=== PATIENT | female | born 1950 | race Two or more races ===

== ENCOUNTER 2020-06-02 07:35 | Outpatient (REF) | payer MEDICARE, SELFPAY ==
--- NOTE | 2020-06-02 | US_ITS ---
EXAMINATION: US ABDOMEN COMPLETE CLINICAL INFORMATION: Epigastric pain. COMPARISON: CT abdomen and pelvis 02/13/2018. TECHNIQUE: Real-time imaging of the abdominal viscera. FINDINGS: PANCREAS: The visualized pancreas is normal in size and contour and echogenicity. There is no pancreatic ductal distention or retroperitoneal effusion. Portions distal body and tail are obscured by bowel gas and not optimally imaged. ABDOMINAL AORTA: The proximal, mid, and distal segments are normal in caliber. INFERIOR VENA CAVA: Visualized portions are normal. LIVER: Normal. The liver is normal in size. The liver contour is normal. Parenchymal echogenicity is normal. No focal hepatic lesion. There is no intrahepatic biliary duct dilatation seen. GALLBLADDER: Normal. The gallbladder is physiologically distended without evidence of stones, sludge, polyps, wall thickening or pericholecystic fluid. COMMON BILE DUCT: Normal in caliber measuring 0.4 cm in diameter. RIGHT KIDNEY: Right kidney measures 9.5 cm in length. There is some mild cortical thinning. Parenchymal echogenicity is isoechoic with liver. There is no hydronephrosis or caliectasis. No visible calculi or focal parenchymal lesion. LEFT KIDNEY: Left kidney measures 9.8 cm in length. Renal parenchymal thickness and echogenicity are within normal. No hydronephrosis. No renal calculi or focal parenchymal lesions. SPLEEN: Normal. The spleen measures 8.8 cm in maximum dimension. FREE FLUID: None. US/US abdomen complete IMPRESSION: 1. No cholelithiasis or biliary ductal dilatation. 2. Visualized pancreas unremarkable. 3. No hydronephrosis. Mild cortical thinning right renal parenchyma.
== END 2020-06-02 07:36 | disposition home or self-care (01) ==
LOC: HO.US 07:35
PROVIDERS: PCP Internal Medicine; Visit Provider Internal Medicine
DX: R10.13 Epigastric pain (principal)
CPT/HCPCS: 76700

== ENCOUNTER → 2020-06-16 14:09 | Outpatient (BNVA) | payer MEDICARE, SELFPAY | PROVIDERS: PCP Internal Medicine; Referring Provider Internal Medicine; Visit Provider Internal Medicine Endocrinology, Diabetes & Metabolism | DX: Z13.89 Encounter for screening for other disorder (principal) | CPT/HCPCS: Q3014 ==

== ENCOUNTER 2020-07-28 12:54 | Outpatient (REF) | payer MEDICARE, SELFPAY ==
[2020-07-28 14:33] LABS: Anion Gap 13 (12-20); Blood Urea Nitrogen 33 mg/dL (9-16); Calcium 8.8 mg/dL (8.4-10.2); Carbon Dioxide 29 mmol/L (22-29); Chloride 106 mmol/L (96-108); Estimated Glomerular Filt Rate 39; Phosphorus 4.1 mg/dL (2.7-4.5); Potassium 4.9 mmol/l (3.3-5.1); Sodium 143 mmol/L (135-145)
[2020-07-28 17:43] LABS: Renal w Reflex Lab Use Only Order verified
== END 2020-07-28 12:55 | disposition home or self-care (01) ==
LOC: HO.10HDL 12:54
PROVIDERS: Visit Provider Internal Medicine Nephrology
DX: E11.22 Type 2 diabetes mellitus with diabetic chronic kidney disease (principal); I12.9 Hypertensive chronic kidney disease with stage 1 through stage 4 chronic kidney disease, or unspecified chronic kidney disease; N18.30 Chronic kidney disease, stage 3 unspecified; E66.01 Morbid (severe) obesity due to excess calories; E11.21 Type 2 diabetes mellitus with diabetic nephropathy
CPT/HCPCS: 36415; 80051; 82310; 82565; 84100; 84520

== ENCOUNTER → 2020-09-19 12:23 | Outpatient (BNVA) | payer MEDICARE, SELFPAY | PROVIDERS: PCP Internal Medicine; Visit Provider Internal Medicine Endocrinology, Diabetes & Metabolism | DX: E11.65 Type 2 diabetes mellitus with hyperglycemia (principal); E11.21 Type 2 diabetes mellitus with diabetic nephropathy; E11.22 Type 2 diabetes mellitus with diabetic chronic kidney disease; I12.9 Hypertensive chronic kidney disease with stage 1 through stage 4 chronic kidney disease, or unspecified chronic kidney disease; N18.30 Chronic kidney disease, stage 3 unspecified; Z79.4 Long term (current) use of insulin; E78.5 Hyperlipidemia, unspecified; E66.01 Morbid (severe) obesity due to excess calories | CPT/HCPCS: 82947; 99212 ==

== ENCOUNTER 2020-10-27 12:55 | Outpatient (REF) | payer MEDICARE, SELFPAY ==
[2020-10-27 14:12] LABS: Anion Gap 11 (12-20); Blood Urea Nitrogen 31 mg/dL (9-16); Calcium 8.7 mg/dL (8.4-10.2); Carbon Dioxide 32 mmol/L (22-29); Chloride 103 mmol/L (96-108); Estimated Glomerular Filt Rate 34; Phosphorus 4.2 mg/dL (2.7-4.5); Potassium 4.8 mmol/L (3.3-5.1); Sodium 141 mmol/L (135-145)
[2020-10-27 14:52] LABS: Renal w Reflex Lab Use Only Order verified
[2020-10-27 14:53] LABS: Creatinine Urine 94.77 mg/dL; Protein/Creatinine Ratio, Ur 0.25 (<0.2); Total Protein Urine Random 24 mg/dL (<12)
== END 2020-10-27 12:56 | disposition home or self-care (01) ==
LOC: HO.10HDL 12:55
PROVIDERS: Visit Provider Internal Medicine Nephrology
DX: E11.22 Type 2 diabetes mellitus with diabetic chronic kidney disease (principal); E11.21 Type 2 diabetes mellitus with diabetic nephropathy; I12.9 Hypertensive chronic kidney disease with stage 1 through stage 4 chronic kidney disease, or unspecified chronic kidney disease; N18.30 Chronic kidney disease, stage 3 unspecified; E66.01 Morbid (severe) obesity due to excess calories
CPT/HCPCS: 36415; 80051; 82310; 82565; 84100; 84156; 84520

== ENCOUNTER 2020-11-26 10:08 | Inpatient (IN) | payer MEDICARE, SELFPAY ==
--- NOTE | ~2020-11-26 | XR_ITS ---
EXAMINATION: XR CHEST CLINICAL INFORMATION: Left-sided weakness COMPARISON: Previous chest x-ray September 2017 TECHNIQUE: Frontal view of the chest was obtained. FINDINGS: The cardiac and mediastinal contours are normal. The lungs are clear. There is no pleural effusion or pneumothorax. There are degenerative changes of the spine. XR/XR chest 1V IMPRESSION: No evidence for acute disease in the chest.
--- NOTE | ~2020-11-26 | MR_ITS ---
EXAMINATION: MR BRAIN WITHOUT CONTRAST CLINICAL INFORMATION: Left-sided numbness. Unsteady gait. COMPARISON: CT head from 11/26/2020. TECHNIQUE: MRI of the brain was obtained using routine sequences without contrast. FINDINGS: There is a focus of restricted diffusion within the lateral aspect of the right thalamus. Associated T2 FLAIR hyperintensity. No additional focal restricted diffusion is demonstrated to suggest acute or subacute cerebral ischemia. No evidence of acute or chronic hemorrhagic products on heme-sensitive imaging. Basal ganglia mineralization. Scattered periventricular and deep white matter T2 FLAIR hyperintensities consistent with mild underlying microangiopathy. Proportional prominence of the ventricles and sulcal spaces without evidence of obstructive hydrocephalus. No abnormal mass effect. No midline shift. Normal appearance of the pituitary gland. No abnormalities of the posterior fossa with normal appearance of the brainstem and cerebellum. Normal positioning of the cerebellar tonsils. Normal arterial and venous vascular flow voids are present. Normal, homogeneous marrow signal. No signal abnormalities within the paranasal sinuses or mastoids. Bilateral lens extractions. MR/MR head/brain wo con IMPRESSION: 1. Small acute right thalamic infarct. 2. Mild underlying microangiopathy and generalized cerebral volume loss.
--- NOTE | ~2020-11-26 | CT_ITS ---
EXAMINATION: CT HEAD WITHOUT CONTRAST CLINICAL INFORMATION: Dizziness, left-sided weakness and imbalance COMPARISON: None TECHNIQUE: Contiguous axial imaging was performed from the skull base to vertex without intravenous administration of contrast. This CT examination was performed using dose optimization techniques as appropriate, variously including the following: *Automated exposure control *Adjustment of mA and/or kV according to patient size (this includes techniques or standardized protocols for targeted exams where dose is matched to indication/reason for exam; i.e. extremities or head) *Use of iterative reconstruction technique DLP: 672 mGy-cm FINDINGS: There is no evidence of acute intracranial hemorrhage or territorial infarction. There is a small hypodensity in the right occipital lobe which appears contiguous to occipital horn of lateral ventricle, ? Old infarct. There are no previous CT abdomen for comparison. No abnormal mass effect or midline shift is seen. Elise to white matter differentiation is well preserved. No extra-axial fluid collections are identified. The lateral ventricles are symmetrical in size but mildly enlarged. No attenuation seen within the white matter. The osseous structures and soft tissues are normal. The mastoid air cells and visualized portions of the paranasal sinuses are well aerated. CT/CT head/brain wo con IMPRESSION: No acute intracranial process seen. Suspect old infarct right occipital lobe with ex vacuole dilatation of occipital horn right lateral ventricle.
[2020-11-26 10:18] VITALS: BP 166/52; PULSE 60; RESP 18; TEMP 36.8; O2SAT 97; BMI 42.7
--- NOTE | 2020-11-26 10:33 | ECG_ITS ---
Test Reason : DIZZINESS Blood Pressure : / mmHG Vent. Rate : 064 BPM Atrial Rate : 064 BPM P-R Int : 180 ms QRS Dur : 086 ms QT Int : 408 ms P-R-T Axes : 085 013 091 degrees QTc Int : 420 ms Normal sinus rhythm Nonspecific ST and T wave abnormality lateral leads Borderline ECG When compared with ECG of 06-APR-2015 06:02, No significant change was found Referred By: Allyn Ruiz Electronically Signed By:KEILA RIVAS
[2020-11-26 11:02] LABS: MANUAL DIFF FLAG NO
[2020-11-26 11:11] LABS: Basophils Percent Auto 0.5 % (0-2); Eosinophils Absolute Auto 0.3 X10*3/uL (0.0-0.4); Eosinophils Percent Auto 4.4 % (0-4); Hemoglobin 11.4 g/dl (12.0-16.0); Imm Gran Abs Auto 0.01 X10*3/uL (0.00-0.03); Imm Gran Pct Auto 0.2 % (0.0-0.4); Lymphocytes Absolute Auto 1.5 X10*3/uL (1.2-4.9); Lymphocytes Percent Auto 24.5 % (20-40); Mean Corpuscular HGB Conc 32.6 g/dl (31.0-35.0); Mean Corpuscular Hemoglobin 30.2 pg (27.0-33.0); Mean Corpuscular Volume 92.8 fL (80-98); Mean Platelet Volume 11.2 fL (9.4-12.3); Monocytes Absolute Auto 0.5 X10*3/uL (0.1-1.2); Neutrophils Absolute Auto 3.8 X10*3/uL (2.0-8.3); Neutrophils Percent Auto 62.4 % (45-73); Platelet Count 198 X10*3/uL (160-400); Red Blood Count 3.77 X10*6/uL (4.20-5.50); Red Cell Distribution Width 11.9 % (11.0-16.0); White Blood Count 6.1 X10*3/uL (4.8-10.8)
[2020-11-26 11:15] LABS: INTERNATIONAL NORM RATIO 1.1 (0.9-1.1); Prothrombin Time 12.5 SEC (10.8-13.0)
[2020-11-26 11:18] LABS: Partial Thromboplastin Time 36.2 SEC (24.1-38.0)
[2020-11-26 11:26] LABS: COVID-19 Test Negative (Negative); IDNOW Serial# 9DD0AD1C
[2020-11-26 11:35] LABS: Alanine Aminotransferase 14 U/L (0-31); Albumin Level 3.8 g/dL (3.5-5.0); Alkaline Phosphatase 94 U/L (39-117); Anion Gap 9 (12-20); Aspartate Amino Transferase 16 U/L (5-31); Bilirubin Direct 0.2 mg/dL (0.0-0.5); Bilirubin Total 0.4 mg/dL (0.0-1.0); Blood Urea Nitrogen 34 mg/dL (9-16); Calcium 9.2 mg/dL (8.4-10.2); Carbon Dioxide 32 mmol/L (22-29); Chloride 105 mmol/L (96-108); Creatinine Clr Calc Pharmacy 25.8; Estimated Glomerular Filt Rate 32; Glucose Random 224 mg/dL (60-115); Lipase 20 U/L (8-78); Magnesium 2.1 mg/dL (1.6-2.6); Potassium 5.1 mmol/L (3.3-5.1); Sodium 141 mmol/L (135-145); Total Protein 6.7 g/dL (6.5-8.0)
[2020-11-26 11:41] LABS: Troponin-I High Sensitivity 6.2 ng/L (<3.5-17.0)
[2020-11-26 11:42] LABS: B Type Natriuretic Peptide 143 pg/mL (<100)
--- NOTE | 2020-11-26 11:48 | ED.DIZZY ---
HPI - Dizziness General Chief Complaint: Dizziness <MAZIN Devine Last Filed: 11/26/20 13:01> Stated Complaint: lt side numbness <MAZIN Devine Last Filed: 11/26/20 13:01> Time Seen by Provider: 11/26/20 10:22 <MAZIN Devine Last Filed: 11/26/20 13:01> Source: patient <MAZIN Devine Last Filed: 11/26/20 13:01> Mode of arrival: ambulatory <MAZIN Devine Last Filed: 11/26/20 13:01> History of Present Illness HPI Narrative: 70-year-old female with a past medical history of asthma, CKD, diabetes, diabetic neuropathy, HLD, GERD, CVA with residual left-sided facial droop, HTN, morbid obesity, c/o waking up last night to use bathroom feeling dizzy/off balance with left-sided weakness/numbness. Admits symptoms slightly improved at present with residual tingling in left fingers and gait improvement. Denies fever, chills, CP/SOB, abdominal pain, fall/head trauma, visual change/loss <MAZIN Devine Last Filed: 11/26/20 13:01> MD elicited complaint: dizziness, difficulty walking, vertigo and disequilibrium <MAZIN Devine Last Filed: 11/26/20 13:01> Related Data Home Medications: Home Medications Medication Instructions Recorded Confirmed metoprolol tartrate 25 mg tablet 25 mg PO BID 06/16/20 12/12/20 aspirin 81 mg tablet,delayed 81 mg PO DAILY 09/19/20 12/12/20 release ascorbic acid (vitamin C) [Vitamin 250 mg PO DAILY 11/26/20 12/12/20 C] gabapentin 300 mg PO BEDTIME 11/26/20 12/12/20 hydralazine 25 mg PO BID 11/26/20 12/12/20 multivitamin 1 tab PO DAILY 11/26/20 12/12/20 Previous Rx's Medication Instructions Recorded atorvastatin 40 mg tablet 40 mg PO BEDTIME 90 Days #90 tab 06/09/20 cholecalciferol (vitamin D3) 50 50 mcg PO DAILY #90 cap 07/28/20 mcg (2,000 unit) capsule Novolog Flexpen U-100 Insulin 100 18 - 20 unit SUBCUT TID 90 Days 12/12/20 unit/mL (3 mL) subcutaneous #45 ml NS insulin glargine 100 unit/mL (3 35 unit SUBCUT BEDTIME 90 Days 12/12/20 mL) subcutaneous pen #31.5 ml pen needle, diabetic 32 gauge x #400 ea 12/12/20 <MAZIN Devine Last Filed: 11/26/20 13:01> Allergies/Adverse Reactions: Allergies Allergy/AdvReac Type Severity Reaction Status Date / Time metformin [From GLUCOPHAGE] AdvReac Unknown DIARRHEA Verified 09/19/20 12:31 <MAZIN Devine Last Filed: 11/26/20 13:01> Review of Systems Review of Systems: Constitutional: No Fever, No Chills, No Night Sweats, No Fatigue, No Malaise ENT/Mouth: No Ear Pain, No Nasal Congestion, No Sinus Pain, No sore throat, No Swallowing Difficulty Eyes: No Eye Pain, No Vision Changes Cardiovascular: No Chest Pain, No SOB, No Edema Respiratory: No Cough, No Sputum, No Dyspnea Gastrointestinal: No Nausea, No Vomiting, No Diarrhea, No Constipation, No Abdominal pain Genitourinary: No Dysuria, No Urinary Frequency, No Hematuria Musculoskeletal: No joint pain, No Myalgias, No Joint Swelling Skin: No Skin Lesions, No rash Neuro: + Weakness, + Numbness, + Paresthesias, No Loss of Consciousness, + Dizziness, No Headache <MAZIN Devine Last Filed: 11/26/20 13:01> Yes all other systems are reviewed and are negative <MAZIN Devine Last Filed: 11/26/20 13:01> Neurologic: Denies Abnormal speech present <MAZIN Devine Last Filed: 11/26/20 13:01> [facility] Past Medical History Attestation statement: The following information was validated with the patient. 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 Morbid obesity Peripheral nerve facial nerve paralysis <MAZIN Devine - Last Filed: 11/26/20 13:01> Surgical History: Surgical History (Updated 06/27/20 @ 15:49 by Lynn Wilson) History of appendectomy Hx of bilateral cataract extraction Hx of hysterectomy Hx of tubal ligation <MAZIN Devine - Last Filed: 11/26/20 13:01> Family History Family History: Family History (Updated 09/19/20 @ 12:30 by Rachele Santos [facility]) Father Cancer Mother Diabetes mellitus <MAZIN Devine - Last Filed: 11/26/20 13:01> Social History Social History: Social History (Updated 06/12/20 @ 10:41 by Candelario Wilkes [facility]) Household Members: None Housing: Apartment Do you presently have visiting nurse or other home services: Yes Second Hand Smoke Exposure: No Advance Directives Date on File: 11/26/20 service: No Current occupational status: disabled <MAZIN Devine - Last Filed: 11/26/20 13:01> Physical Exam Vital Signs: Vital Signs: Last Vital Signs Temp 97.1 F 11/28/20 11:31 Pulse 60 11/28/20 11:31 Resp 20 11/28/20 11:31 BP 138/61 11/28/20 11:31 Pulse Ox 93 11/28/20 11:31 Body Mass Index 42.7 <MAZIN Devine - Last Filed: 11/26/20 13:01> Vital Signs: Last Vital Signs Temp 97.1 F 11/28/20 11:31 Pulse 60 11/28/20 11:31 Resp 20 11/28/20 11:31 BP 138/61 11/28/20 11:31 Pulse Ox 93 11/28/20 11:31 Body Mass Index 42.7 <Sammy Hein MD - Last Filed: 12/25/20 12:46> Const: General: cooperative, healthy appearing, alert, awake and Physically active <MAZIN Devine - Last Filed: 11/26/20 13:01> Orientation/consciousness: patient oriented x3 <MAZIN Devine - Last Filed: 11/26/20 13:01> Limitations: no limitations <Allyn Ruiz PR - Last Filed: 11/26/20 13:01> HENMT: Head: Yes normal to inspection <Allyn Ruiz PR - Last Filed: 11/26/20 13:01> Ears: hearing grossly normal bilaterally <Allyn Ruiz PR - Last Filed: 11/26/20 13:01> General nose exam: Normal external nose present <Allyn Ruiz PR - Last Filed: 11/26/20 13:01> Face and sinus: Yes normal facial exam <Allyn Ruiz PR - Last Filed: 11/26/20 13:01> Eyes: General: appearance normal, both eyes and all related structures <Allyn Ruiz PR - Last Filed: 11/26/20 13:01> Pupils: Equal, round and reactive pupils present <Allyn Ruiz PR - Last Filed: 11/26/20 13:01> EOM: EOMs intact bilaterally <Allyn Ruiz PR - Last Filed: 11/26/20 13:01> Neck: Neck: Yes normal visual inspection and Yes no meningeal signs <Allyn Ruiz PR - Last Filed: 11/26/20 13:01> Resp: Effort & Inspection: normal respiratory effort <Allyn Ruiz PR - Last Filed: 11/26/20 13:01> Auscultation: clear to auscultation bilaterally, no rales, no rhonchi and no wheezes <Allyn Ruiz PR - Last Filed: 11/26/20 13:01> Cardio: Rate: regular rate <Allyn Ruiz PR - Last Filed: 11/26/20 13:01> Heart sounds: S1 normal heart sound present and S2 normal heart sound present <Allyn Ruiz PR - Last Filed: 11/26/20 13:01> GI: Inspection: Yes normal to inspection <Allyn Ruiz PA - Last Filed: 11/26/20 13:01> Palpation (GI): Soft to palpation, nontender, no guarding and not rigid <Allyn Ruiz PR - Last Filed: 11/26/20 13:01> Skin: Rashes: no rashes <Allyn Ruiz PA - Last Filed: 11/26/20 13:01> Wounds: no wounds <MAZIN Devine - Last Filed: 11/26/20 13:01> Neuro: Other: Baseline left-sided facial droop. No appreciable weakness. Gait with slight leftward unsteadiness, no ataxia <MAZIN Devine Last Filed: 11/26/20 13:01> General: patient oriented x3, tone normal, moves all extremities, no meningeal signs, no focal motor deficits and CN's II-XI intact bilaterally <MAZIN Devine - Last Filed: 11/26/20 13:01> Cranial nerves: Yes Equal, round and reactive pupils present <MAZIN Devine - Last Filed: 11/26/20 13:01> Cognition (Neuro): normal cognition <MAZIN Devine Last Filed: 11/26/20 13:01> Speech: No Abnormal speech present <MAZIN Devine Last Filed: 11/26/20 13:01> Motor exam (neuro): 5/5 motor strength present throughout <MAZIN Devine - Last Filed: 11/26/20 13:01> Coordination: [id number] test normal and Romberg test negative <MAZIN Devine - Last Filed: 11/26/20 13:01> Extrem: General: Yes normal to inspection and Yes no pedal edema <MAZIN Devine - Last Filed: 11/26/20 13:01> Course Course Course Narrative: -no leukocytosis, H&H stable, renal function at baseline, troponin 6.2 >> will obtain 3 hour repeat XR chest 1V IMPRESSION: No evidence for acute disease in the chest. CT head/brain wo con IMPRESSION: No acute intracranial process seen. Suspect old infarct right occipital lobe with ex vacuole dilatation of occipital horn right lateral ventricle >> results discussed with patient with service support representative. Plan to admit for further workup <MAZIN Devine - Last Filed: 11/26/20 13:01> I have discussed the case and management with the JANIE <Sammy Hein MD - Last Filed: 12/25/20 12:46> MDM - Dizziness MDM Narrative Medical decision making narrative: 70-year-old female with a past medical history of asthma, CKD, diabetes, diabetic neuropathy, HLD, GERD, CVA with residual left-sided facial droop, HTN, morbid obesity, c/o waking up last night to use bathroom feeling dizzy/off balance with left-sided weakness/numbness. On exam VSS, NAD, no focal neuro deficits appreciated, exam unsteady but no ataxia. Patient still with slight reported symptoms at present concern for CVA vs TIA. R/o ACS/metabolic/infectious etiology Plan: EKG, labs, UA, head CT, orthostatics, anticipated admission <MAZIN Devine - Last Filed: 11/26/20 13:01> Medical Records Attestation: I reviewed the patient's medical records. <MAZIN Devine - Last Filed: 11/26/20 13:01> Lab Data Attestation: I reviewed the patient's lab results. <MAZIN Devine - Last Filed: 11/26/20 13:01> Result diagrams: : 11/26/20 10:55 11/26/20 10:55 <MAZIN Devine - Last Filed: 11/26/20 13:01> Labs: Lab Results 11/26/20 11/26/20 11/26/20 Range/Units 10:55 10:55 10:55 WBC 6.1 (4.8-10.8) X10*3/uL RBC 3.77 L (4.20-5.50) X10*6/uL Hgb 11.4 L (12.0-16.0) g/dl Hct 35.0 L (37-47) % MCV 92.8 (80-98) fL MCH 30.2 (27.0-33.0) pg MCHC 32.6 (31.0-35.0) g/dl RDW 11.9 (11.0-16.0) % Plt Count 198 (160-400) X10*3/uL MPV 11.2 (9.4-12.3) fL Immature Gran % (Auto) 0.2 (0.0-0.4) % Neut % (Auto) 62.4 (45-73) % Lymph % (Auto) 24.5 (20-40) % [place] % (Auto) 8.0 (2-11) % Eos % (Auto) 4.4 H (0-4) % Baso % (Auto) 0.5 (0-2) % Lymph # (Auto) 1.5 (1.2-4.9) X10*3/uL [place] # (Auto) 0.5 (0.1-1.2) X10*3/uL Eos # (Auto) 0.3 (0.0-0.4) X10*3/uL Baso # (Auto) 0.0 (0.0-0.2) X10*3/uL Abs Immat Gran (auto) 0.01 (0.00-0.03) X10*3/uL Absolute Neuts (auto) 3.8 (2.0-8.3) X10*3/uL Absolute Nucleated RBC 0.000 (0.0-0.012) X10*3/uL Nucleated RBC % (auto) 0.0 (0.0-0.2) /100WBC PT (10.8-13.0) SEC INR (0.9-1.1) APTT (24.1-38.0) SEC Sodium 141 (135-145) mmol/L Potassium 5.1 (3.3-5.1) mmol/L Chloride 105 (96-108) mmol/L Carbon Dioxide 32 H (22-29) mmol/L Anion Gap 9 L (12-20) BUN 34 H (9-16) mg/dL Creatinine 1.58 H (0.5-1.4) mg/dL Estim Creat Clear Calc 25.8 Estimated GFR 32 Random Glucose 224 H (60-115) mg/dL Calcium 9.2 (8.4-10.2) mg/dL Magnesium 2.1 (1.6-2.6) mg/dL Total Bilirubin 0.4 (0.0-1.0) mg/dL Direct Bilirubin 0.2 (0.0-0.5) mg/dL AST 16 (5-31) U/L ALT 14 (0-31) U/L Alkaline Phosphatase 94 (39-117) U/L Troponin I High Sens 6.2 (<3.5-17.0) ng/L B-Natriuretic Peptide (<100) pg/mL Total Protein 6.7 (6.5-8.0) g/dL Albumin 3.8 (3.5-5.0) g/dL Lipase (8-78) U/L COVID-19 (ZULEYKA) (Negative) COVID-19 Clin Com 11/26/20 11/26/20 11/26/20 Range/Units 10:55 10:55 10:55 WBC (4.8-10.8) X10*3/uL RBC (4.20-5.50) X10*6/uL Hgb (12.0-16.0) g/dl Hct (37-47) % MCV (80-98) fL MCH (27.0-33.0) pg MCHC (31.0-35.0) g/dl RDW (11.0-16.0) % Plt Count (160-400) X10*3/uL MPV (9.4-12.3) fL Immature Gran % (Auto) (0.0-0.4) % Neut % (Auto) (45-73) % Lymph % (Auto) (20-40) % [place] % (Auto) (2-11) % Eos % (Auto) (0-4) % Baso % (Auto) (0-2) % Lymph # (Auto) (1.2-4.9) X10*3/uL [place] # (Auto) (0.1-1.2) X10*3/uL Eos # (Auto) (0.0-0.4) X10*3/uL Baso # (Auto) (0.0-0.2) X10*3/uL Abs Immat Gran (auto) (0.00-0.03) X10*3/uL Absolute Neuts (auto) (2.0-8.3) X10*3/uL Absolute Nucleated RBC (0.0-0.012) X10*3/uL Nucleated RBC % (auto) (0.0-0.2) /100WBC PT 12.5 (10.8-13.0) SEC INR 1.1 (0.9-1.1) APTT 36.2 (24.1-38.0) SEC Sodium (135-145) mmol/L Potassium (3.3-5.1) mmol/L Chloride (96-108) mmol/L Carbon Dioxide (22-29) mmol/L Anion Gap (12-20) BUN (9-16) mg/dL Creatinine (0.5-1.4) mg/dL Estim Creat Clear Calc Estimated GFR Random Glucose (60-115) mg/dL Calcium (8.4-10.2) mg/dL Magnesium (1.6-2.6) mg/dL Total Bilirubin (0.0-1.0) mg/dL Direct Bilirubin (0.0-0.5) mg/dL AST (5-31) U/L ALT (0-31) U/L Alkaline Phosphatase (39-117) U/L Troponin I High Sens (<3.5-17.0) ng/L B-Natriuretic Peptide 143 H (<100) pg/mL Total Protein (6.5-8.0) g/dL Albumin (3.5-5.0) g/dL Lipase 20 (8-78) U/L COVID-19 (ZULEYKA) (Negative) COVID-19 Clin Com 11/26/20 Range/Units 10:55 WBC (4.8-10.8) X10*3/uL RBC (4.20-5.50) X10*6/uL Hgb (12.0-16.0) g/dl Hct (37-47) % MCV (80-98) fL MCH (27.0-33.0) pg MCHC (31.0-35.0) g/dl RDW (11.0-16.0) % Plt Count (160-400) X10*3/uL MPV (9.4-12.3) fL Immature Gran % (Auto) (0.0-0.4) % Neut % (Auto) (45-73) % Lymph % (Auto) (20-40) % [place] % (Auto) (2-11) % Eos % (Auto) (0-4) % Baso % (Auto) (0-2) % Lymph # (Auto) (1.2-4.9) X10*3/uL [place] # (Auto) (0.1-1.2) X10*3/uL Eos # (Auto) (0.0-0.4) X10*3/uL Baso # (Auto) (0.0-0.2) X10*3/uL Abs Immat Gran (auto) (0.00-0.03) X10*3/uL Absolute Neuts (auto) (2.0-8.3) X10*3/uL Absolute Nucleated RBC (0.0-0.012) X10*3/uL Nucleated RBC % (auto) (0.0-0.2) /100WBC PT (10.8-13.0) SEC INR (0.9-1.1) APTT (24.1-38.0) SEC Sodium (135-145) mmol/L Potassium (3.3-5.1) mmol/L Chloride (96-108) mmol/L Carbon Dioxide (22-29) mmol/L Anion Gap (12-20) BUN (9-16) mg/dL Creatinine (0.5-1.4) mg/dL Estim Creat Clear Calc Estimated GFR Random Glucose (60-115) mg/dL Calcium (8.4-10.2) mg/dL Magnesium (1.6-2.6) mg/dL Total Bilirubin (0.0-1.0) mg/dL Direct Bilirubin (0.0-0.5) mg/dL AST (5-31) U/L ALT (0-31) U/L Alkaline Phosphatase (39-117) U/L Troponin I High Sens (<3.5-17.0) ng/L B-Natriuretic Peptide (<100) pg/mL Total Protein (6.5-8.0) g/dL Albumin (3.5-5.0) g/dL Lipase (8-78) U/L COVID-19 (ZULEYKA) Negative (Negative) COVID-19 Clin Com See Note <MAZIN Devine - Last Filed: 11/26/20 13:01> Lab Results 11/26/20 11/26/20 11/26/20 Range/Units 10:55 10:55 10:55 WBC 6.1 (4.8-10.8) X10*3/uL RBC 3.77 L (4.20-5.50) X10*6/uL Hgb 11.4 L (12.0-16.0) g/dl Hct 35.0 L (37-47) % MCV 92.8 (80-98) fL MCH 30.2 (27.0-33.0) pg MCHC 32.6 (31.0-35.0) g/dl RDW 11.9 (11.0-16.0) % Plt Count 198 (160-400) X10*3/uL MPV 11.2 (9.4-12.3) fL Immature Gran % (Auto) 0.2 (0.0-0.4) % Neut % (Auto) 62.4 (45-73) % Lymph % (Auto) 24.5 (20-40) % [place] % (Auto) 8.0 (2-11) % Eos % (Auto) 4.4 H (0-4) % Baso % (Auto) 0.5 (0-2) % Lymph # (Auto) 1.5 (1.2-4.9) X10*3/uL [place] # (Auto) 0.5 (0.1-1.2) X10*3/uL Eos # (Auto) 0.3 (0.0-0.4) X10*3/uL Baso # (Auto) 0.0 (0.0-0.2) X10*3/uL Abs Immat Gran (auto) 0.01 (0.00-0.03) X10*3/uL Absolute Neuts (auto) 3.8 (2.0-8.3) X10*3/uL Absolute Nucleated RBC 0.000 (0.0-0.012) X10*3/uL Nucleated RBC % (auto) 0.0 (0.0-0.2) /100WBC PT (10.8-13.0) SEC INR (0.9-1.1) APTT (24.1-38.0) SEC Sodium 141 (135-145) mmol/L Potassium 5.1 (3.3-5.1) mmol/L Chloride 105 (96-108) mmol/L Carbon Dioxide 32 H (22-29) mmol/L Anion Gap 9 L (12-20) BUN 34 H (9-16) mg/dL Creatinine 1.58 H (0.5-1.4) mg/dL Estim Creat Clear Calc 25.8 Estimated GFR 32 Random Glucose 224 H (60-115) mg/dL Calcium 9.2 (8.4-10.2) mg/dL Magnesium 2.1 (1.6-2.6) mg/dL Total Bilirubin 0.4 (0.0-1.0) mg/dL Direct Bilirubin 0.2 (0.0-0.5) mg/dL AST 16 (5-31) U/L ALT 14 (0-31) U/L Alkaline Phosphatase 94 (39-117) U/L Troponin I High Sens 6.2 (<3.5-17.0) ng/L B-Natriuretic Peptide (<100) pg/mL Total Protein 6.7 (6.5-8.0) g/dL Albumin 3.8 (3.5-5.0) g/dL Lipase (8-78) U/L COVID-19 (ZULEYKA) (Negative) COVID-19 Clin Com 11/26/20 11/26/20 11/26/20 Range/Units 10:55 10:55 10:55 WBC (4.8-10.8) X10*3/uL RBC (4.20-5.50) X10*6/uL Hgb (12.0-16.0) g/dl Hct (37-47) % MCV (80-98) fL MCH (27.0-33.0) pg MCHC (31.0-35.0) g/dl RDW (11.0-16.0) % Plt Count (160-400) X10*3/uL MPV (9.4-12.3) fL Immature Gran % (Auto) (0.0-0.4) % Neut % (Auto) (45-73) % Lymph % (Auto) (20-40) % [place] % (Auto) (2-11) % Eos % (Auto) (0-4) % Baso % (Auto) (0-2) % Lymph # (Auto) (1.2-4.9) X10*3/uL [place] # (Auto) (0.1-1.2) X10*3/uL Eos # (Auto) (0.0-0.4) X10*3/uL Baso # (Auto) (0.0-0.2) X10*3/uL Abs Immat Gran (auto) (0.00-0.03) X10*3/uL Absolute Neuts (auto) (2.0-8.3) X10*3/uL Absolute Nucleated RBC (0.0-0.012) X10*3/uL Nucleated RBC % (auto) (0.0-0.2) /100WBC PT 12.5 (10.8-13.0) SEC INR 1.1 (0.9-1.1) APTT 36.2 (24.1-38.0) SEC Sodium (135-145) mmol/L Potassium (3.3-5.1) mmol/L Chloride (96-108) mmol/L Carbon Dioxide (22-29) mmol/L Anion Gap (12-20) BUN (9-16) mg/dL Creatinine (0.5-1.4) mg/dL Estim Creat Clear Calc Estimated GFR Random Glucose (60-115) mg/dL Calcium (8.4-10.2) mg/dL Magnesium (1.6-2.6) mg/dL Total Bilirubin (0.0-1.0) mg/dL Direct Bilirubin (0.0-0.5) mg/dL AST (5-31) U/L ALT (0-31) U/L Alkaline Phosphatase (39-117) U/L Troponin I High Sens (<3.5-17.0) ng/L B-Natriuretic Peptide 143 H (<100) pg/mL Total Protein (6.5-8.0) g/dL Albumin (3.5-5.0) g/dL Lipase 20 (8-78) U/L COVID-19 (ZULEYKA) (Negative) COVID-19 Clin Com 11/26/20 Range/Units 10:55 WBC (4.8-10.8) X10*3/uL RBC (4.20-5.50) X10*6/uL Hgb (12.0-16.0) g/dl Hct (37-47) % MCV (80-98) fL MCH (27.0-33.0) pg MCHC (31.0-35.0) g/dl RDW (11.0-16.0) % Plt Count (160-400) X10*3/uL MPV (9.4-12.3) fL Immature Gran % (Auto) (0.0-0.4) % Neut % (Auto) (45-73) % Lymph % (Auto) (20-40) % [place] % (Auto) (2-11) % Eos % (Auto) (0-4) % Baso % (Auto) (0-2) % Lymph # (Auto) (1.2-4.9) X10*3/uL [place] # (Auto) (0.1-1.2) X10*3/uL Eos # (Auto) (0.0-0.4) X10*3/uL Baso # (Auto) (0.0-0.2) X10*3/uL Abs Immat Gran (auto) (0.00-0.03) X10*3/uL Absolute Neuts (auto) (2.0-8.3) X10*3/uL Absolute Nucleated RBC (0.0-0.012) X10*3/uL Nucleated RBC % (auto) (0.0-0.2) /100WBC PT (10.8-13.0) SEC INR (0.9-1.1) APTT (24.1-38.0) SEC Sodium (135-145) mmol/L Potassium (3.3-5.1) mmol/L Chloride (96-108) mmol/L Carbon Dioxide (22-29) mmol/L Anion Gap (12-20) BUN (9-16) mg/dL Creatinine (0.5-1.4) mg/dL Estim Creat Clear Calc Estimated GFR Random Glucose (60-115) mg/dL Calcium (8.4-10.2) mg/dL Magnesium (1.6-2.6) mg/dL Total Bilirubin (0.0-1.0) mg/dL Direct Bilirubin (0.0-0.5) mg/dL AST (5-31) U/L ALT (0-31) U/L Alkaline Phosphatase (39-117) U/L Troponin I High Sens (<3.5-17.0) ng/L B-Natriuretic Peptide (<100) pg/mL Total Protein (6.5-8.0) g/dL Albumin (3.5-5.0) g/dL Lipase (8-78) U/L COVID-19 (ZULEYKA) Negative (Negative) COVID-19 Clin Com See Note <Sammy Hein MD - Last Filed: 12/25/20 12:46> Discharge Plan Discharge Clinical Impression: Transient cerebral ischemia <MAZIN Devine - Last Filed: 11/26/20 13:01> Patient Disposition: Admitted As Inpatient <MAZIN Devine - Last Filed: 11/26/20 13:01> Interventions: Admission Worksheet (ED) Last Done: 11/26/20 17:29 <MAZIN Devine - Last Filed: 11/26/20 13:01> Discharge Date/Time: 11/26/20 17:43 <MAZIN Devine - Last Filed: 11/26/20 13:01>
[2020-11-26] MEDS: 0.9 % Sodium Chloride 1,000 ML 999 ML IVCONT (12:34)
[2020-11-26 14:30] VITALS: BP 187/68; PULSE 60; RESP 18; O2SAT 98
[2020-11-26 16:00] VITALS: BP 177/65; PULSE 122; RESP 19; TEMP 37; O2SAT 96
[2020-11-26 16:02] LABS: Troponin-I High Sensitivity 6.4 ng/L (<3.5-17.0)
--- NOTE | 2020-11-26 16:40 | HP_ITS ---
DATE OF SERVICE: 11/26/2020 CHIEF COMPLAINT: Unsteady gait. HISTORY OF PRESENTING ILLNESS: This is a 70-year-old female patient with past medical history significant for 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 The patient woke up last night to use the bathroom and she felt that she has an unsteady gait with left-sided numbness. She denies any associated dizziness, denies any weakness,speech impairment, no visual symptoms, In the emergency room, she underwent a CAT scan of the head that showed old right occipital infarction and no new abnormalities. Her further workup showed a blood sugar 224, creatinine stable at 1.58, troponin 6.2. At present, she feels that her symptoms have resolved,she is being admitted to [facility] for close neurological monitoring. PAST MEDICAL HISTORY: Significant for, 1. Diabetes mellitus type 2, on insulin. 2. History of hypertension. 3. History of hyperlipidemia. 4. History of asthma. 5. 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 6. History of diabetic nephropathy. 7. History of GERD. 8. Morbid obesity. PAST SURGICAL HISTORY: 1. She is status post appendectomy. 2. Status post bilateral cataract surgery. 3. Status post hysterectomy. 4. Status post tubal ligation. FAMILY HISTORY: 1. The patient's father is , had throat cancer. He was a smoker. 2. Mother is . She had diabetes mellitus. SOCIAL HISTORY: The patient is a nonsmoker. Denies use of illicit drug use or smoking. She ambulates with the help of a walker at times and she has a 2-hour PC services. REVIEW OF SYSTEMS: BANKING MANAGER: She denies any headache, dizziness. CVS: Denies chest pain or palpitation. RESPIRATORY: No cough or sputum production. GI: Denies nausea, vomiting, diarrhea. : No urinary symptoms of urgency or frequency. Rest of all other systems are reviewed and are negative. ALLERGIES: THE PATIENT IS ALLERGIC TO METFORMIN THAT CAUSES DIARRHEA. MEDICATIONS ON ADMISSION: Ascorbic acid 250 mg daily, aspirin 81 daily, Lipitor 40 mg at bedtime, vitamin D3 50 mcg daily, gabapentin 300 at bedtime, hydralazine 25 b.i.d., insulin aspartate, NovoLog FlexPen 18 to 20 units t.i.d., Lantus 38 units at bedtime, metoprolol 25 b.i.d., and multivitamin 1 by mouth daily. PHYSICAL EXAMINATION: GENERAL: The patient is resting comfortably, does not appear to be in acute distress. HEENT: She has some mild left facial droop that seems chronic. There is no nystagmus noticed. NECK: Supple. No JVD. LUNGS: Clear to auscultation bilaterally. HEART: Regular rate rhythm with no murmur, regurgitation, or gallop. ABDOMEN: Obese, soft, nontender. Bowel sounds are audible. EXTREMITIES: Without clubbing, cyanosis, or edema. NEURO: Speech is clear with no impairment. Normal strength bilateral upper and lower extremities. Plantar is downgoing. Normal sensations bilaterally. SKIN: No rashes. PSYCH: Appropriate affect. LABORATORY DATA: WBC 6.1, hemoglobin 11.4, hematocrit of 35, platelet of 198. INR 1.1. Sodium 141, potassium 5.1, chloride 105, anion gap of 9, creatinine 1.58 with most recent creatinine of 1.5 in November 12. GFR in the 30s. Chest x-ray, no evidence for acute disease in the chest. Head CT showed old infarction in right occipital lobe. No acute intracranial process is seen. EKG showed normal sinus rhythm. No acute EKG changes. ASSESSMENT AND PLAN: This is a 70-year-old female patient with past medical history significant for right occipital infarction with left facial droop, history of chronic kidney disease stage 3, diabetes mellitus (on insulin), hypertension, hyperlipidemia, presented to [facility] due to unsteady gait and numbness of left side, due to prior history of stroke and multiple risk factors for stroke ,patient is being admitted for close monitoring and treatment. PROBLEM LIST: 1. Transient neurological deficit. unsteady gait and left sided numbness have resolved,has no other neuro deficit. She has a normal swallow eval. We will continue the patient on aspirin, blood pressure medications, and statins. follow lipid profile at a.m. Since the patient has chronic kidney disease and has severe anxiety, we will discuss further workup including MRI with Neurology. We will obtain Neuro consult. Continue neuro checks. 2. Diabetes mellitus type 2 with diabetic nephropathy. The patient will be continued on Lantus insulin. We will place on diabetic diet, continue premeal NovoLog insulin,dose reduced, and add insulin sliding scale. 3. History of hyperlipidemia. Continue Lipitor and check lipid profile at a.m. 4. History of chronic kidney disease, stage 3.recommend good blood sugar control. 5. Hypertension.continue home medications. 6. Deep vein thrombosis prophylaxis. patient will be placed on heparin. 7. Code status discussed with patient she wishes to be a full code. MD BLANCHE Linares/TONY / [id number] MTDD
[2020-11-26] MEDS: Heparin Sodium,Porcine 5,000 UNIT/ML VIAL 5000 UNIT SUBCUT (16:45)
[2020-11-26 16:53] LABS: Glucose, Whole Blood 161 mg/dL (60-115)
--- NOTE | 2020-11-26 17:11 | PC.NURSE ---
Attempted to call report to regla hernandez on IM. No answer/rn unavailable. montioring at this time.
[2020-11-26 18:01] LABS: Glucose, Whole Blood 167 mg/dL (60-115)
[2020-11-26] MEDS: Insulin Lispro 100 UNIT/ML 3 ML VIAL SUBCUT ×2 (18:42→21:35)
[2020-11-26 20:51] VITALS: BP 175/73; PULSE 64
[2020-11-26] MEDS: hydrALAZINE HCl 25 MG TABLET PO (20:51)
[2020-11-26] MEDS: Metoprolol Tartrate 25 MG TABLET PO (20:51)
[2020-11-26] MEDS: Gabapentin 300 MG CAPSULE PO (20:51)
[2020-11-26] MEDS: Atorvastatin Calcium 40 MG TABLET PO (20:51)
[2020-11-26 20:53] LABS: Glucose, Whole Blood 238 mg/dL (60-115)
[2020-11-26] MEDS: Insulin Glargine,Hum.rec.anlog 100 UNIT/ML 10 ML VIAL 38 UNIT SUBCUT (21:33)
[2020-11-26 23:26] VITALS: BP 159/70; PULSE 61; RESP 18; TEMP 36.1; O2SAT 97
[2020-11-27] VITALS (8 sets, daily range): BP systolic 110–169; BP diastolic 50–66; PULSE 57–61; RESP 12–20; TEMP 36.1–36.8; O2SAT 95–98
[2020-11-27] MEDS: 0.9 % Sodium Chloride Flush 3 ML SYRINGE IVFLUSH ×3 (00:31→16:41)
[2020-11-27] MEDS: Heparin Sodium,Porcine 5,000 UNIT/ML VIAL 5000 UNIT SUBCUT ×2 (02:21→14:33)
[2020-11-27 06:57] LABS: Cholesterol 143 mg/dL; HDL Cholesterol 56 mg/dL; LDL Cholesterol Calculated 68 mg/dl; Triglycerides 98 mg/dL
[2020-11-27 07:23] LABS: Glucose, Whole Blood 110 mg/dL (60-115)
[2020-11-27] MEDS: Multivitamin TABLET 1 TAB PO (08:10)
[2020-11-27] MEDS: Ascorbic Acid 250 MG TABLET PO (08:10)
[2020-11-27] MEDS: Metoprolol Tartrate 25 MG TABLET PO ×2 (08:10→21:27)
[2020-11-27] MEDS: Aspirin Enteric Coated 81 MG TABLET.DR PO (08:10)
[2020-11-27] MEDS: hydrALAZINE HCl 25 MG TABLET PO ×2 (08:10→21:27)
[2020-11-27] MEDS: Acetaminophen 325 MG TABLET 650 MG PO (08:11)
--- NOTE | 2020-11-27 09:16 | MHC.CM.PN ---
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 The goal for dc is to return home and resume these services and CM has initiated and will follow for dc planning. Daughter/Dilan is the HCP .
[2020-11-27 11:06] LABS: Glucose, Whole Blood 229 mg/dL (60-115)
[2020-11-27] MEDS: Insulin Lispro 100 UNIT/ML 3 ML VIAL 15 UNIT SUBCUT ×2 (11:33→16:40)
[2020-11-27] MEDS: Insulin Lispro 100 UNIT/ML 3 ML VIAL SUBCUT ×2 (11:34→16:40)
--- NOTE | 2020-11-27 14:02 | P.CNNE_ITS ---
History of Present Illness Data of Consult Service Date: 11/27/20 Primary Care Provider: Ventura Shi MD 70 years old woman with hypertension insulin-dependent diabetes and renal insufficiency who came to hospital with left-sided numbness and weakness. It started about a day before she came and now it was mostly resolved but her left hand was still numb. There was no associated mental confusion or headache. She was not sick and denied any seizure-like episode. Review of Systems Review of Systems: No recent cold or flu-like illness. 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 Morbid obesity Peripheral nerve facial nerve paralysis Family History Family History (Updated 09/19/20 @ 12:30 by Rachele Santos MA) Father Cancer Mother Diabetes mellitus Surgical History Surgical History (Updated 06/27/20 @ 15:49 by Lynn Wilson) History of appendectomy Hx of bilateral cataract extraction Hx of hysterectomy Hx of tubal ligation Social History Social History (Updated 06/12/20 @ 10:41 by JACKLYN Turner) Household Members: None Housing: Apartment Do you presently have visiting nurse or other home services: Yes Smoking Status: Former smoker Tobacco Type: Cigarette Smoked in Last 30 Days: No Patient Interested in Nicotine Replacement: No Patient Given Instructions on How to Stop Smoking: No Second Hand Smoke Exposure: No Use of substances other than those prescribed or required for medical reasons: No Currently Displaying Signs/Symptoms of Drug Intoxication Withdrawal: No Any prior treatment program specific to substance use: No Have you been hit, kicked, punched, or otherwise hurt by someone within the past year? If so, by whom?: No Do you feel safe in your current relationship?: No Current Relationship Is there a partner from a previous relationship who is making you feel unsafe now?: No Are you made to feel afraid or neglected: No Advance Directives: Yes Advance Directives Information Provided: No Advance Directives on File: No Advance Directives Date on File: 11/26/20 Do you have thoughts of harming others: None Do you have a plan to hurt others: No Plan Recently lost weight without trying: No Eating poorly because of decreased appetite: No Patient : No : No Poor oral hygiene: No service: No Current occupational status: disabled Meds Allergies Allergy/AdvReac Type Severity Reaction Status Date / Time metformin [From GLUCOPHAGE] AdvReac Unknown DIARRHEA Verified 09/19/20 12:31 Active Medications: Current Medications Generic Name Dose Route Start Last Admin Trade Name Gertrude PRN Reason Stop Dose Admin Acetaminophen 650 mg 11/26/20 13:57 11/27/20 08:11 Acetaminophen 325 Mg Tablet PO 650 mg Q6H PRN Administration Pain, Mild (Pain Scale 1-3) Ascorbic Acid 250 mg 11/27/20 09:00 11/27/20 08:10 Ascorbic Acid 250 Mg Tablet PO 250 mg DAILY BRONWYN Administration Aspirin 81 mg 11/27/20 09:00 11/27/20 08:10 Aspirin Enteric Coated 81 Mg Tablet.Dr PO 81 mg DAILY BRONWYN Administration Atorvastatin Calcium 40 mg 11/26/20 21:00 11/26/20 20:51 Atorvastatin Calcium 40 Mg Tablet PO 40 mg BEDTIME BRONWYN Administration Gabapentin 300 mg 11/26/20 21:00 11/26/20 20:51 Gabapentin 300 Mg Capsule PO 300 mg BEDTIME BRONWYN Administration Heparin Sodium (Porcine) 5,000 unit 11/26/20 14:00 11/27/20 02:21 Heparin Sodium,Porcine 5,000 Unit/Ml Vial SUBCUT 5,000 unit Q12H BRONWYN Administration Hydralazine HCl 25 mg 11/26/20 21:00 11/27/20 08:10 Hydralazine Hcl 25 Mg Tablet PO 25 mg BID BRONWYN Administration Protocol Insulin Glargine 38 unit 11/26/20 21:00 11/26/20 21:33 Insulin Glargine,Hum.Rec.Anlog 100 Unit/Ml 10 Ml Vial SUBCUT 38 unit BEDTIME BRONWYN Administration Insulin Human Lispro 15 unit 11/26/20 16:30 11/27/20 11:33 Insulin Lispro 100 Unit/Ml 3 Ml Vial SUBCUT 15 unit TIDAC BRONWYN Administration Insulin Human Lispro 0 unit 11/26/20 16:30 11/27/20 11:34 Insulin Lispro 100 Unit/Ml 3 Ml Vial SUBCUT 4 unit QIDACHS BRONWYN Administration Protocol Metoprolol Tartrate 25 mg 11/26/20 21:00 11/27/20 08:10 Metoprolol Tartrate 25 Mg Tablet PO 25 mg BID [facility] Administration Protocol Multivitamins/Vitamin C 1 tab 11/27/20 09:00 11/27/20 08:10 Multivitamin Tablet PO 1 tab DAILY [facility] Administration Ondansetron HCl 4 mg 11/26/20 13:57 Ondansetron Hcl 4 Mg/2 Ml Vial IVPUSH Q8H PRN Nausea and Vomiting Pharmacy Consult 1 each 11/26/20 10:33 Consult Rx Perform Med Rec MISCELLANE ONCE PRN Consult order Sodium Chloride 3 ml 11/26/20 16:00 11/27/20 08:11 0.9 % Sodium Chloride Flush 3 Ml Syringe IVFLUSH 3 ml QSHIFT [facility] Administration Home Medications Medication Instructions Recorded Confirmed Last Taken Type metoprolol tartrate 25 mg tablet 25 mg PO BID 06/16/20 11/26/20 Unknown History aspirin 81 mg tablet,delayed 81 mg PO DAILY 09/19/20 11/26/20 11/25/20 History release ascorbic acid (vitamin C) [Vitamin 250 mg PO DAILY 11/26/20 11/26/20 11/25/20 History C] gabapentin 300 mg PO BEDTIME 11/26/20 11/26/20 11/25/20 History hydralazine 25 mg PO BID 11/26/20 11/26/20 Unknown History insulin aspart U-100 [Novolog 18 - 20 unit SUBCUT TID 11/26/20 11/26/20 11/25/20 History Flexpen U-100 Insulin] multivitamin 1 tab PO DAILY 11/26/20 11/26/20 11/25/20 History Physical Exam Vital Signs: Vital Signs: Last Vital Signs Temp 97.5 F 11/27/20 11:38 Pulse 58 11/27/20 11:38 Resp 20 11/27/20 11:38 BP 169/60 H 11/27/20 11:38 Pulse Ox 98 11/27/20 11:38 Body Mass Index 42.7 Alert and awake with normal spontaneity of speech fluency comprehension and affect. Pupils were equal and reactive to light and extraocular muscles were intact. Visual ribeiro are full to threat. Face was symmetrical. There was no pronator drift. There was no obvious focal weakness. Deep tendon reflexes were absent with flexor plantars. She was moderately obese. Results Labs CBC & Chem 7: 11/26/20 10:55 11/26/20 10:55 Labs: Her noncontrast head CT revealed mild cerebral atrophy and mild chronic microvascular ischemic changes. Assessment and Plan (1) Cerebral infarction: Problem details: 70 years old woman who probably had atherosclerotic small-vessel right hemispheric subcortical ischemic infarction related to hypertension and other vascular risk factors resulting in left-sided numbness and weakness. Now she was much better. Mainstay of management is blood pressure control, anti- platelet agent if possible, control of lipid disorder. I would recommend an MRI of brain without contrast. I would avoid CTA at this time because of renal problems and to avoid making it worse with contrast. Status: Acute
--- NOTE | 2020-11-27 14:27 | MHC.STROKE ---
Addendum entered by Fide Hardy RN 11/28/20 11:14: I MET WITH THE PATIENT TODAY TO REVIEW HER MRI RESULTS. + RIGHT THALAMIC STROKE AND HOW IT CORRELATES WITH HER LEFT HAND NUMBNESS. I GAVE HER A SCREENSHOT OF THE MRI AND DESCRIBED THE LOCATION. SHE IS PLANNING ON GOING HOME TODAY AND SHE WILL BE COMPLIANT WITH HER PLAN AND TAKING HER MEDICATIONS. Original Note: 11/26/20 walk-in at 1008. C/O DIZZINESS AND LEFT SIDED WEAK/NUMBNESS ONSET OF SYMPTOMS UNKNOWN WOKE WITH SYMPTOMS ON 11/26/20 AROUND 0800. LKW IS WHEN SHE WENT TO BED AROUND 11/25/20 AT 2100. NIHSS = 0. I DID MEET WITH HER USING AN BOX ICER TO CLARIFY THE ONSET, LKW AND HX OF PRIOR CVA. SHE HAS SOME RESIDUAL LEFT VISUAL DIFFICULTIES AND SLIGHT DROOP. SHE HAS A HX OF DM, HLD, HTN OBESITY RISK FACTORS, SHE SAID THAT SHE TAKES HER MEDICATIONS FAITHFULLY EVERYDAY. SHE WAS SEEN BY PT AND SHE IS AT HER BASELINE. SHE IS REQUESTING TO GO HOME. DR MCDONNELL IS RECOMMENDING A MRI AND SHE WILL AGREE IF MEDICATED. I DID RELAY THIS TO DR BRANHAM. I PROVIDED STROKE EDUCATION AND INFORMATION IN GERMAN BOOKLET. I ANSWERED ALL HER QUESTIONS. I WILL CONTINUE TO FOLLOW.
--- NOTE | 2020-11-27 14:29 | HO.PM.IMPN ---
Subjective Subjective Date of Service: 11/27/20 Interval History: Patient complaining of left shoulder pain that started this am no further episodes of numbness , no new weakness ,no other neurological symptoms. ros General no headache, no dizziness ,no fever chills. CVS no chest pain, no palpitation. Respiratory no cough, no sob. Gastrointestinal no nausea, no vomiting, no abdominal pain Physical Exam Vital Signs: Vital Signs: Last Vital Signs Temp 97.5 F 11/27/20 11:38 Pulse 58 11/27/20 11:38 Resp 20 11/27/20 11:38 BP 169/60 H 11/27/20 11:38 Pulse Ox 98 11/27/20 11:38 Body Mass Index 42.7 General sitting comfortably in no acute distress. Neck no JVD. Good range of motion. CVS regular rate rhythm, Respiratory lungs clear to auscultation, no respiratory distress, no wheeze, no rhonchi. Gastrointestinal abdomen soft, nontender, bowel sounds audible,no guarding , no rigidity. Extremities no edema. Left shoulder, tenderness left trapezius, mild spasm, good range of motion left shoulder Neuro chronic left facial droop, normal cerebellar exam, finger-nose, [id number]. Skin no rash Objective Data Current Medications Generic Name Dose Route Start Last Admin Trade Name Freq PRN Reason Stop Dose Admin Acetaminophen 650 mg 11/26/20 13:57 11/27/20 08:11 Acetaminophen 325 Mg Tablet PO 650 mg Q6H PRN Administration Pain, Mild (Pain Scale 1-3) Ascorbic Acid 250 mg 11/27/20 09:00 11/27/20 08:10 Ascorbic Acid 250 Mg Tablet PO 250 mg DAILY BRONWYN Administration Aspirin 81 mg 11/27/20 09:00 11/27/20 08:10 Aspirin Enteric Coated 81 Mg Tablet.Dr PO 81 mg DAILY BRONWYN Administration Atorvastatin Calcium 40 mg 11/26/20 21:00 11/26/20 20:51 Atorvastatin Calcium 40 Mg Tablet PO 40 mg BEDTIME BRONWYN Administration Gabapentin 300 mg 11/26/20 21:00 11/26/20 20:51 Gabapentin 300 Mg Capsule PO 300 mg BEDTIME BRONWYN Administration Heparin Sodium (Porcine) 5,000 unit 11/26/20 14:00 11/27/20 02:21 Heparin Sodium,Porcine 5,000 Unit/Ml Vial SUBCUT 5,000 unit Q12H BRONWYN Administration Hydralazine HCl 25 mg 05/05/21 21:00 11/27/20 08:10 Hydralazine Hcl 25 Mg Tablet PO 25 mg BID [facility] Administration Protocol Insulin Glargine 38 unit 11/26/20 21:00 11/26/20 21:33 Insulin Glargine,Hum.Rec.Anlog 100 Unit/Ml 10 Ml Vial SUBCUT 38 unit BEDTIME BRONWYN Administration Insulin Human Lispro 15 unit 11/26/20 16:30 11/27/20 11:33 Insulin Lispro 100 Unit/Ml 3 Ml Vial SUBCUT 15 unit TIDAC [facility] Administration Insulin Human Lispro 0 unit 11/26/20 16:30 11/27/20 11:34 Insulin Lispro 100 Unit/Ml 3 Ml Vial SUBCUT 4 unit QIDACHS [facility] Administration Protocol Metoprolol Tartrate 25 mg 11/26/20 21:00 11/27/20 08:10 Metoprolol Tartrate 25 Mg Tablet PO 25 mg BID [facility] Administration Protocol Multivitamins/Vitamin C 1 tab 11/27/20 09:00 11/27/20 08:10 Multivitamin Tablet PO 1 tab DAILY [facility] Administration Ondansetron HCl 4 mg 11/26/20 13:57 Ondansetron Hcl 4 Mg/2 Ml Vial IVPUSH Q8H PRN Nausea and Vomiting Pharmacy Consult 1 each 11/26/20 10:33 Consult Rx Perform Med Rec MISCELLANE ONCE PRN Consult order Sodium Chloride 3 ml 11/26/20 16:00 11/27/20 08:11 0.9 % Sodium Chloride Flush 3 Ml Syringe IVFLUSH 3 ml QSHIFT [facility] Administration Labs CBC & Chem 7: 11/26/20 10:55 11/26/20 10:55 Assessment and Plan (1) Transient neurologic deficit: Status: Acute (2) Morbid obesity: Status: Acute (3) Hypertension: Status: Acute (4) CKD stage 3 due to type 2 diabetes mellitus: Status: Acute Assessment and Plan: 70-year-old female patient with past medical history significant for right occipital infarction with left facial droop, history of chronic kidney disease stage 3, diabetes mellitus (on insulin), hypertension, hyperlipidemia, presented to [facility] due to unsteady gait and numbness of left side, due to prior history of stroke and multiple risk factors for stroke ,patient is being admitted for close monitoring and treatment. 1. Transient neurological deficit. Symptoms of left sided numbness have resolved,has no other neuro deficit, has a normal swallow eval. Patient seen by Dr. Morgan he recommend MRI study to rule out posterior cerebellar stroke,will continue on aspirin, blood pressure medications, and statins. Patient seen by Physical therapy she recommend home with dog handler or trainer services since patient at her baseline functional status. 2. Diabetes mellitus type 2 with diabetic nephropathy. Blood sugar around 200, continue Lantus insulin, diabetic diet, continue premeal NovoLog insulin,dose reduced, and insulin sliding scale. 3. History of hyperlipidemia. Continue Lipitor ,Ldl 68, Tchol 143 continue current dose 4. History of chronic kidney disease, stage 3.recommend good blood sugar control. 5. Hypertension.continue home medications. 6. Deep vein thrombosis prophylaxis. Continue heparin. 7. Code status full code. 8. Left shoulder musculoskeletal pain advice to use bengay and k pad
[2020-11-27 16:07] LABS: Glucose, Whole Blood 160 mg/dL (60-115)
[2020-11-27] MEDS: LORazepam 1 MG TABLET PO (18:39)
[2020-11-27 20:58] LABS: Glucose, Whole Blood 71 mg/dL (60-115)
[2020-11-27] MEDS: Insulin Glargine,Hum.rec.anlog 100 UNIT/ML 10 ML VIAL 38 UNIT SUBCUT (21:27)
[2020-11-27] MEDS: Atorvastatin Calcium 40 MG TABLET PO (21:27)
[2020-11-27] MEDS: Gabapentin 300 MG CAPSULE PO (21:27)
[2020-11-28] MEDS: Heparin Sodium,Porcine 5,000 UNIT/ML VIAL 5000 UNIT SUBCUT (02:12)
[2020-11-28] MEDS: 0.9 % Sodium Chloride Flush 3 ML SYRINGE IVFLUSH ×2 (02:13→08:05)
[2020-11-28 03:13] VITALS: BP 135/61; PULSE 55; RESP 12; TEMP 36.6; O2SAT 98
[2020-11-28 07:27] LABS: Glucose, Whole Blood 78 mg/dL (60-115)
[2020-11-28 08:00] VITALS: BP 142/64; PULSE 56; RESP 18; TEMP 37.1; O2SAT 98
[2020-11-28] MEDS: Aspirin Enteric Coated 81 MG TABLET.DR PO (08:02)
[2020-11-28] MEDS: Multivitamin TABLET 1 TAB PO (08:02)
[2020-11-28] MEDS: Ascorbic Acid 250 MG TABLET PO (08:02)
[2020-11-28 08:03] VITALS: BP 142/66; PULSE 62
[2020-11-28] MEDS: hydrALAZINE HCl 25 MG TABLET PO (08:03)
[2020-11-28 08:05] VITALS: BP 142/66; PULSE 62
[2020-11-28] MEDS: Metoprolol Tartrate 25 MG TABLET PO (08:05)
--- NOTE | 2020-11-28 11:16 | MHC.CM.PN ---
pt to be dcd home with resumption of servceis thru dual rate dealer and rn 2 x yearly visits
[2020-11-28 11:18] LABS: Glucose, Whole Blood 177 mg/dL (60-115)
--- NOTE | 2020-11-28 11:27 | P.DS_ITS ---
DS: Providers Provider Date of Service: 11/28/20 Date of admission: 11/26/20 14:09 Primary care physician: Ventura Shi MD Consults: 11/26/20 13:57 Consult to Neurology Routine Consulting Provider: [facility] Reason for consultation: unsteady gait and left sided numbness Has provider been notified: No DS: Diagnosis Discharge Diagnosis (1) Transient neurologic deficit: Status: Acute (2) Morbid obesity: Status: Acute (3) Hypertension: Status: Acute (4) CKD stage 3 due to type 2 diabetes mellitus: Status: Acute DS: Medications Discharge Medications Home Medications: Home Medications Medication Instructions Recorded Confirmed metoprolol tartrate 25 mg tablet 25 mg PO BID 06/16/20 11/26/20 aspirin 81 mg tablet,delayed 81 mg PO DAILY 09/19/20 11/26/20 release ascorbic acid (vitamin C) [Vitamin 250 mg PO DAILY 11/26/20 11/26/20 C] gabapentin 300 mg PO BEDTIME 11/26/20 11/26/20 hydralazine 25 mg PO BID 11/26/20 11/26/20 insulin aspart U-100 [Novolog 18 - 20 unit SUBCUT TID 11/26/20 11/26/20 Flexpen U-100 Insulin] multivitamin 1 tab PO DAILY 11/26/20 11/26/20 Previous Rx's Medication Instructions Recorded atorvastatin 40 mg tablet 40 mg PO BEDTIME 90 Days #90 tab 06/09/20 insulin glargine 100 unit/mL (3 38 unit SUBCUT BEDTIME 90 Days #45 06/16/20 mL) subcutaneous pen ml cholecalciferol (vitamin D3) 50 50 mcg PO DAILY #90 cap 07/28/20 mcg (2,000 unit) capsule DS: Summary Hospital Course Hospital Course: 10-year-old female patient with past medical history significant for 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 The patient woke up last night to use the bathroom and she felt that she has an unsteady gait with left- sided numbness. She denies any associated dizziness, denies any weakness,speech impairment, no visual symptoms, In the emergency room, she underwent a CAT scan of the head that showed old right occipital infarction and no new abnormalities. Her further workup showed a blood sugar 224, creatinine stable at 1.58, troponin 6.2. At present, she feels that her symptoms have resolved,she is being admitted to [facility] for close neurological monitoring. PAST MEDICAL HISTORY: Significant for, 1. Diabetes mellitus type 2, on insulin. 2. History of hypertension. 3. History of hyperlipidemia. 4. History of asthma. 5. 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 6. History of diabetic nephropathy. 7. History of GERD. 8. Morbid obesity. PAST SURGICAL HISTORY: 1. She is status post appendectomy. 2. Status post bilateral cataract surgery. 3. Status post hysterectomy. 4. Status post tubal ligation. Hospital course: Patient was admitted for TIA. While CT of the head was negative. MRI of the head subsequently showed a small acute right thalamic infarct. Neurology recommend blood pressure control, statin, antiplatelet with aspirin. She has been evaluated by Physical therapy and will have home services including physical therapy and OT. Time Spent with Patient Time attestation: Total time spent providing and/or coordinating discharge services: Discharge coordination time: Greater than 30 minutes Quality: Stroke Pt Provided Written Stroke Discharge Instructions: Patient given written information Physical Exam Vital Signs: Vital Signs: Last Vital Signs Temp 98.7 F 11/28/20 08:00 Pulse 62 11/28/20 08:05 Resp 18 11/28/20 08:00 BP 142/66 H 11/28/20 08:05 Pulse Ox 98 11/28/20 08:00 Body Mass Index 42.7 DS: Data Data Completed and Pending Labs on day of discharge: Laboratory Results - last 24 hr 11/27/20 11/27/20 11/28/20 16:00 20:53 07:09 POC Glucose 160 H 71 78 11/28/20 11:08 POC Glucose 177 H Discharge Plan Discharge Anticipated Discharge Date/Time: 11/28/20 11:23 Patient Disposition: Home Health Service Discharge Diagnosis: Acute stroke Referrals: [facility] [Other] - 1 Week Ventura Shi MD [Primary Care Provider] - 1 Week Discharge Medications: Continued atorvastatin 40 mg tablet 40 mg PO BEDTIME 90 Days Qty: 90 RF: 2 cholecalciferol (vitamin D3) 50 mcg (2,000 unit) capsule 50 mcg PO DAILY Qty: 90 RF: 1 hydralazine 25 mg tablet 25 mg PO BID RF: 0 gabapentin 300 mg capsule 300 mg PO BEDTIME RF: 0 insulin aspart U-100 [Novolog Flexpen U-100 Insulin] 100 unit/mL (3 mL) insulin pen 18 - 20 unit subcut TID RF: 0 multivitamin Tablet 1 tab PO DAILY RF: 0 ascorbic acid (vitamin C) [Vitamin C] 250 mg Tablet 250 mg PO DAILY RF: 0 metoprolol tartrate 25 mg tablet 25 mg PO BID RF: 0 insulin glargine 100 unit/mL (3 mL) insulin pen 38 unit subcut BEDTIME 90 Days Qty: 45 RF: 1 aspirin 81 mg tablet,delayed release (DR/EC) 81 mg PO DAILY RF: 0 Discharge Orders: Discharge Order (Routine); Ordered 11/28/20 Ordered By: Silvestre Encarnacion Diet: advance to usual diet Activity on Discharge: As tolerated Stand Alone Forms: Patient Portal Discharge page Care Plan Goals: Prevent future stroke Health Concerns: Stroke, high blood pressure diabetes Plan of Treatment: Take her blood pressure, diabetes and cholesterol medications as prescribed follow-up with her primary care doctor you have physical therapy at home Assessment: Acute stroke--See above
[2020-11-28 11:31] VITALS: BP 138/61; PULSE 60; RESP 20; TEMP 36.2; O2SAT 93
--- NOTE | 2020-11-28 11:31 | P.F2F_ITS ---
Service Date Service Date: 11/28/20 Encounter Date of encounter: 11/28/20 Reasons for Services Reason for residential: neurological assessment Reason for physical therapy: therapeutic exercises Homebound: Leaving the home is medically contraindicated at this time without the asist of a device and/or another person due th the listed conditions above and below. Homebound supporting statement: Homebound due due to acute stroke with imbalance, numbness in hand and leg putting her at risk for fall Certification: Based on the above findings, I certify that this patient is confined to the home and needs intermittent residential care, physical therapy and/or speech therapy, or continues to need occupational therapy. The patient is under my care, and I have initiated the establishment of the plan of care. The patient will be followed by a physician who will periodically review the plan of care.
[2020-11-28] MEDS: Insulin Lispro 100 UNIT/ML 3 ML VIAL SUBCUT (11:38)
== END 2020-11-28 14:05 | disposition home health service (06) | DRG 65 ==
LOC: HO.ED 13:17 → HO.EDOVER 14:10 → HO.IMC 17:08
PROVIDERS: Physician Assistant; Admitting Provider Hospitalist; Emergency Provider Emergency Medicine; PCP Internal Medicine; Visit Provider Internal Medicine
DX: I63.81 Other cerebral infarction due to occlusion or stenosis of small artery (principal); Z68.41 Body mass index [BMI] 40.0-44.9, adult; E11.42 Type 2 diabetes mellitus with diabetic polyneuropathy; K21.9 Gastro-esophageal reflux disease without esophagitis; E66.01 Morbid (severe) obesity due to excess calories; E78.5 Hyperlipidemia, unspecified; I12.9 Hypertensive chronic kidney disease with stage 1 through stage 4 chronic kidney disease, or unspecified chronic kidney disease; R26.81 Unsteadiness on feet; R20.0 Anesthesia of skin; E11.22 Type 2 diabetes mellitus with diabetic chronic kidney disease; N18.30 Chronic kidney disease, stage 3 unspecified; Z20.822 Contact with and (suspected) exposure to COVID-19; I69.992 Facial weakness following unspecified cerebrovascular disease; Z87.891 Personal history of nicotine dependence; Z79.4 Long term (current) use of insulin; Z79.82 Long term (current) use of aspirin; Z79.899 Other long term (current) drug therapy
CPT/HCPCS: 36415; 70450; 70551; 71045; 80048; 80061; 80076; 82947; 83690; 83735; 83880; 84484; 85025; 85610; 85730; 87635; 93005; 97161; 99285

== ENCOUNTER → 2020-12-12 12:38 | Outpatient (BNVA) | payer MEDICARE, SELFPAY | PROVIDERS: PCP Internal Medicine; Visit Provider Internal Medicine Endocrinology, Diabetes & Metabolism | DX: E11.65 Type 2 diabetes mellitus with hyperglycemia (principal); E11.21 Type 2 diabetes mellitus with diabetic nephropathy; E11.22 Type 2 diabetes mellitus with diabetic chronic kidney disease; I12.9 Hypertensive chronic kidney disease with stage 1 through stage 4 chronic kidney disease, or unspecified chronic kidney disease; N18.30 Chronic kidney disease, stage 3 unspecified; E66.01 Morbid (severe) obesity due to excess calories; Z79.4 Long term (current) use of insulin; E78.5 Hyperlipidemia, unspecified | CPT/HCPCS: 82947; 99212 ==

== ENCOUNTER 2020-12-26 09:35 | Emergency (ER) | payer MEDICARE, SELFPAY ==
--- NOTE | ~2020-12-26 | US_ITS ---
EXAMINATION: BILATERAL TRIPLEX SCANNING OF THE LOWER EXTREMITIES CLINICAL INFORMATION: Lower extremity swelling. COMPARISON: 09/26/2019 TECHNIQUE: Color-flow triplex imaging with spectral analysis and compression Doppler were performed on the lower extremities. FINDINGS: Respiratory variation, normal compression and augmented flow are noted throughout the lower extremities. The visualized common femoral vein, superficial femoral vein, profunda femoral vein, popliteal vein and mid calf peroneal and posterior tibial venous segments show no evidence of deep venous thrombosis. There is a small left-sided Sharp's cyst and there is a moderate right knee joint. US/US venous duplex LE BI IMPRESSION: Normal triplex scan without evidence of deep venous thrombosis involving the lower extremities. Left-sided Sharp's cyst. Right joint effusion.
--- NOTE | ~2020-12-26 | XR_ITS ---
EXAMINATION: XR CHEST CLINICAL INFORMATION: SOB. COMPARISON: Chest 11/27/2019 TECHNIQUE: Frontal view of the chest was obtained. FINDINGS: No significant abnormality is noted involving the heart, lungs, mediastinum, bony thorax or soft tissues. XR/XR chest 1V IMPRESSION: Unremarkable chest examination. No change from 11/26/2020
[2020-12-26 09:49] VITALS: BP 168/54; PULSE 63; RESP 13; TEMP 36.8; O2SAT 96; BMI 44.5
--- NOTE | 2020-12-26 10:01 | ED.GENADULT ---
HPI - General Adult General Chief complaint: General Medical Stated complaint: FACIAL SWELLING Time Seen by Provider: 12/26/20 10:01 History of Present Illness HPI narrative: Patient is a 70-year-old female presents today with having swelling to the face. Swelling to the legs. Swelling to the arm. Generalized malaise. Patient from home. No cough no congestion or upper respiratory symptoms. Patient had coronavirus vaccine. History diabetes. There is no new medication. No chest pain. Patient from home. Feels more short of breath than usual. Never had a heart attack or stroke. Patient just feels very tired. History of high cholesterol. History of hypertension. Patient is not on NELSY-inhibitor. Patient went to see her doctor was sent in for further evaluation. Related Data Home Medications Medication Instructions Recorded Confirmed metoprolol tartrate 25 mg tablet 25 mg PO BID 06/16/20 12/12/20 aspirin 81 mg tablet,delayed 81 mg PO DAILY 09/19/20 12/12/20 release ascorbic acid (vitamin C) [Vitamin 250 mg PO DAILY 11/26/20 12/12/20 C] gabapentin 300 mg PO BEDTIME 11/26/20 12/12/20 hydralazine 25 mg PO BID 11/26/20 12/12/20 multivitamin 1 tab PO DAILY 11/26/20 12/12/20 Previous Rx's Medication Instructions Recorded atorvastatin 40 mg tablet 40 mg PO BEDTIME 90 Days #90 tab 06/09/20 cholecalciferol (vitamin D3) 50 50 mcg PO DAILY #90 cap 07/28/20 mcg (2,000 unit) capsule Novolog Flexpen U-100 Insulin 100 18 - 20 unit SUBCUT TID 90 Days 12/12/20 unit/mL (3 mL) subcutaneous #45 ml NS insulin glargine 100 unit/mL (3 35 unit SUBCUT BEDTIME 90 Days 12/12/20 mL) subcutaneous pen #31.5 ml pen needle, diabetic 32 gauge x #400 ea 12/12/20 furosemide [Lasix] 20 mg PO DAILY #7 tab 12/26/20 Allergies Allergy/AdvReac Type Severity Reaction Status Date / Time metformin [From GLUCOPHAGE] AdvReac Unknown DIARRHEA Verified 09/19/20 12:31 Review of Systems Review of Systems: Constitutional: No Weight loss, No Fever, No Chills, No Night Sweats, No Fatigue, No Malaise ENT/Mouth: No Hearing loss, No Ear Pain, No Nasal Congestion, No Sinus Pain, No Hoarseness, No sore throat, No Rhinorrhea, No Swallowing Difficulty Eyes: No Eye Pain, No Swelling, No Redness, No Foreign Body, No Discharge, No Vision Changes Cardiovascular: No Chest Pain, No SOB, No Dyspnea on Exertion, No Orthopnea, positive Edema, No Palpitations Respiratory: No Cough, No Sputum, No Wheezing, No Smoke Exposure, No Dyspnea Gastrointestinal: No Nausea, No Vomiting, No Diarrhea, No Constipation, No abdominal Pain, No Hematochezia, No Melena Genitourinary: no irregular bleeding, No Dysuria, No Urinary Frequency, No Hematuria, No Urinary Incontinence, No Urgency, No Flank Pain, No Urinary Flow Changes, No Hesitancy Musculoskeletal: No joint pain, No Myalgias, No Joint Swelling Skin: No Skin Lesions, No rash Neuro: No Weakness, No Numbness, No Paresthesias, No Loss of Consciousness, No Dizziness, No Headache Psych: No Anxiety/Panic, No Depression, No SI/HI/AH/VH, No Social Issues, Heme/Lymph: No Bruising, No Bleeding,No Lymphadenopathy Endocrine: No Polyuria, No Polydipsia, No Temperature Intolerance PMFSH Past Medical History Attestation statement: The following information was validated with the patient. 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 Morbid obesity Peripheral nerve facial nerve paralysis Surgical History History of appendectomy Hx of bilateral cataract extraction Hx of hysterectomy Hx of tubal ligation Family History Family History Father Cancer Mother Diabetes mellitus Social History Social History Household Members: None Housing: Apartment Do you presently have visiting nurse or other home services: Yes Alcohol intake: never Patient Tobacco Use Status: Never used Tobacco Second Hand Smoke Exposure: No Use of substances other than those prescribed or required for medical reasons: No Advance Directives: No Advance Directives Information Provided: No Advance Directives Date on File: 11/26/20 service: No Current occupational status: disabled Physical Exam Vital Signs: Vital Signs: Last Vital Signs Temp 98.3 F 12/26/20 09:49 Pulse 59 12/26/20 12:06 Resp 19 12/26/20 12:06 BP 176/53 H 12/26/20 12:06 Pulse Ox 97 12/26/20 12:06 Body Mass Index 44.5 Appearance: Alert. Oriented X3. No acute distress. Eyes: Pupils equal, round and reactive to light. ENT: Pharynx normal. Neck: Normal inspection. Neck supple. No lymph nodes noted. No crepitus CVS: Normal heart rate and rhythm. Pulses normal. Normal S1 and S2 Respiratory: No respiratory distress. Breath sounds normal. No Wheezing. No rales Abdomen: Soft and nontender. No rigidity. No distention. good BS x4 Skin: Skin warm and dry. Normal skin color. Normal skin turgor. Extremities: 2+ pitting lower extremity edema bilaterally. Neurovascular intact to all extremities. No Lacerations. No Rash Neuro: Oriented X 3. No motor deficit. No sensory deficit. Moving all extermities. No slurred speech Medical Decision Making MDM Narrative Medical decision making narrative: Patient complaining of diffuse body swelling. Her BNP is 200 slightly elevated compared to baseline of 150. Patient's Doppler bilateral lower extremity was negative for any acute evidence of DVT. There is a Sharp's cysts load noted. Patient's troponin was negative. Patient's EKG was normal. Will start patient on low-dose of Lasix. Will have patient follow-up on an outpatient basis. In stable condition. Lab Data Lab results reviewed: Yes I reviewed the patient's lab results. Result diagrams: 12/26/20 10:39 12/26/20 10:39 Labs: Lab Results 12/26/20 12/26/20 12/26/20 Range/Units 10:39 10:39 10:39 WBC 6.2 (4.8-10.8) X10*3/uL RBC 3.27 L (4.20-5.50) X10*6/uL Hgb 9.8 L (12.0-16.0) g/dl Hct 31.3 L (37-47) % MCV 95.7 (80-98) fL MCH 30.0 (27.0-33.0) pg MCHC 31.3 (31.0-35.0) g/dl RDW 12.4 (11.0-16.0) % Plt Count 161 (160-400) X10*3/uL MPV 10.5 (9.4-12.3) fL Immature Gran % (Auto) 0.3 (0.0-0.4) % Neut % (Auto) 64.0 (45-73) % Lymph % (Auto) 21.0 (20-40) % [place] % (Auto) 9.2 (2-11) % Eos % (Auto) 5.3 H (0-4) % Baso % (Auto) 0.2 (0-2) % Lymph # (Auto) 1.3 (1.2-4.9) X10*3/uL [place] # (Auto) 0.6 (0.1-1.2) X10*3/uL Eos # (Auto) 0.3 (0.0-0.4) X10*3/uL Baso # (Auto) 0.0 (0.0-0.2) X10*3/uL Abs Immat Gran (auto) 0.02 (0.00-0.03) X10*3/uL Absolute Neuts (auto) 4.0 (2.0-8.3) X10*3/uL Absolute Nucleated RBC 0.000 (0.0-0.012) X10*3/uL Nucleated RBC % (auto) 0.0 (0.0-0.2) /100WBC PT 13.4 H (10.8-13.0) SEC INR 1.1 (0.9-1.1) Hold Blue Top Sodium 142 (135-145) mmol/L Potassium 5.1 (3.3-5.1) mmol/L Chloride 108 (96-108) mmol/L Carbon Dioxide 28 (22-29) mmol/L Anion Gap 11 L (12-20) BUN 38 H (9-16) mg/dL Creatinine 1.43 H (0.5-1.4) mg/dL Estim Creat Clear Calc 29.2 Estimated GFR 36 Random Glucose 148 H (60-115) mg/dL Calcium 9.1 (8.4-10.2) mg/dL Total Bilirubin 0.5 (0.0-1.0) mg/dL Direct Bilirubin 0.2 (0.0-0.5) mg/dL AST 25 D (5-31) U/L ALT 46 H (0-31) U/L Alkaline Phosphatase 95 (39-117) U/L Troponin I High Sens (<3.5-17.0) ng/L B-Natriuretic Peptide (<100) pg/mL Total Protein 6.4 L (6.5-8.0) g/dL Albumin 3.8 (3.5-5.0) g/dL TSH 1.55 (0.32-4.0) uIU/mL Urine Color Urine Appearance Urine pH (5.0-8.0) Ur Specific [place] (1.005-1.025) Urine Protein (NEG-TRACE) MG/DL Urine Glucose (UA) (NEG) MG/DL Urine Ketones (NEG) MG/DL Urine Blood (NEG) Urine Nitrite (NEG) Ur Leukocyte Esterase (NEG) 12/26/20 12/26/20 12/26/20 Range/Units 10:39 10:40 12:05 WBC (4.8-10.8) X10*3/uL RBC (4.20-5.50) X10*6/uL Hgb (12.0-16.0) g/dl Hct (37-47) % MCV (80-98) fL MCH (27.0-33.0) pg MCHC (31.0-35.0) g/dl RDW (11.0-16.0) % Plt Count (160-400) X10*3/uL MPV (9.4-12.3) fL Immature Gran % (Auto) (0.0-0.4) % Neut % (Auto) (45-73) % Lymph % (Auto) (20-40) % [place] % (Auto) (2-11) % Eos % (Auto) (0-4) % Baso % (Auto) (0-2) % Lymph # (Auto) (1.2-4.9) X10*3/uL [place] # (Auto) (0.1-1.2) X10*3/uL Eos # (Auto) (0.0-0.4) X10*3/uL Baso # (Auto) (0.0-0.2) X10*3/uL Abs Immat Gran (auto) (0.00-0.03) X10*3/uL Absolute Neuts (auto) (2.0-8.3) X10*3/uL Absolute Nucleated RBC (0.0-0.012) X10*3/uL Nucleated RBC % (auto) (0.0-0.2) /100WBC PT (10.8-13.0) SEC INR (0.9-1.1) Hold Blue Top SEE NOTE Sodium (135-145) mmol/L Potassium (3.3-5.1) mmol/L Chloride (96-108) mmol/L Carbon Dioxide (22-29) mmol/L Anion Gap (12-20) BUN (9-16) mg/dL Creatinine (0.5-1.4) mg/dL Estim Creat Clear Calc Estimated GFR Random Glucose (60-115) mg/dL Calcium (8.4-10.2) mg/dL Total Bilirubin (0.0-1.0) mg/dL Direct Bilirubin (0.0-0.5) mg/dL AST (5-31) U/L ALT (0-31) U/L Alkaline Phosphatase (39-117) U/L Troponin I High Sens 6.3 (<3.5-17.0) ng/L B-Natriuretic Peptide 219 H (<100) pg/mL Total Protein (6.5-8.0) g/dL Albumin (3.5-5.0) g/dL TSH (0.32-4.0) uIU/mL Urine Color YELLOW Urine Appearance CLOUDY Urine pH 6.0 (5.0-8.0) Ur Specific [place] 1.020 (1.005-1.025) Urine Protein TRACE (NEG-TRACE) MG/DL Urine Glucose (UA) 100 H (NEG) MG/DL Urine Ketones NEG (NEG) MG/DL Urine Blood NEG (NEG) Urine Nitrite NEG (NEG) Ur Leukocyte Esterase NEG (NEG) ECG Data Interpretation: Patient's EKG showed a sinus pattern heart rate is 60 MS QRS QT within normal limits is no acute ST segment elevation noted. Discharge Plan Discharge Clinical Impression: Edema Patient Disposition: Home, Self-Care Prescriptions: New furosemide [Lasix] 20 mg tablet 20 mg PO DAILY Qty: 7 RF: 0 No Action atorvastatin 40 mg tablet 40 mg PO BEDTIME 90 Days Qty: 90 RF: 2 cholecalciferol (vitamin D3) 50 mcg (2,000 unit) capsule 50 mcg PO DAILY Qty: 90 RF: 1 hydralazine 25 mg tablet 25 mg PO BID RF: 0 gabapentin 300 mg capsule 300 mg PO BEDTIME RF: 0 multivitamin Tablet 1 tab PO DAILY RF: 0 ascorbic acid (vitamin C) [Vitamin C] 250 mg Tablet 250 mg PO DAILY RF: 0 metoprolol tartrate 25 mg tablet 25 mg PO BID RF: 0 aspirin 81 mg tablet,delayed release (DR/EC) 81 mg PO DAILY RF: 0 insulin aspart U-100 [Novolog Flexpen U-100 Insulin] 100 unit/mL (3 mL) insulin pen 18 - 20 unit subcut TID 90 Days Qty: 45 RF: 2 insulin glargine 100 unit/mL (3 mL) insulin pen 35 unit subcut BEDTIME 90 Days Qty: 31.5 RF: 1 (DME) pen needle, diabetic [BD Kelly 2nd Gen Pen Needle] 32 gauge x 5/32 needle See Rx Instructions .MEDSUPPLY Qty: 400 RF: 4 Referrals: Ventura Shi MD [Primary Care Provider] - 2 days Print Language: Sami
--- NOTE | 2020-12-26 10:07 | ECG_ITS ---
Test Reason : SOB Blood Pressure : / mmHG Vent. Rate : 057 BPM Atrial Rate : 057 BPM P-R Int : 184 ms QRS Dur : 086 ms QT Int : 426 ms P-R-T Axes : 023 010 055 degrees QTc Int : 414 ms Sinus bradycardia Otherwise normal ECG When compared with ECG of 26-NOV-2020 11:17, No significant change was found Referred By: [place] Sen Electronically Signed By:Yoan Patrick
[2020-12-26 10:44] LABS: MANUAL DIFF FLAG NO
[2020-12-26 10:49] LABS: Basophils Percent Auto 0.2 % (0-2); Eosinophils Absolute Auto 0.3 X10*3/uL (0.0-0.4); Eosinophils Percent Auto 5.3 % (0-4); Hematocrit 31.3 % (37-47); Hemoglobin 9.8 g/dl (12.0-16.0); Imm Gran Abs Auto 0.02 X10*3/uL (0.00-0.03); Imm Gran Pct Auto 0.3 % (0.0-0.4); Lymphocytes Absolute Auto 1.3 X10*3/uL (1.2-4.9); Mean Corpuscular HGB Conc 31.3 g/dl (31.0-35.0); Mean Corpuscular Volume 95.7 fL (80-98); Mean Platelet Volume 10.5 fL (9.4-12.3); Monocytes Absolute Auto 0.6 X10*3/uL (0.1-1.2); Monocytes Percent Auto 9.2 % (2-11); Platelet Count 161 X10*3/uL (160-400); Red Blood Count 3.27 X10*6/uL (4.20-5.50); Red Cell Distribution Width 12.4 % (11.0-16.0); White Blood Count 6.2 X10*3/uL (4.8-10.8)
[2020-12-26 10:51] LABS: INTERNATIONAL NORM RATIO 1.1 (0.9-1.1); Prothrombin Time 13.4 SEC (10.8-13.0)
[2020-12-26 11:37] LABS: B Type Natriuretic Peptide 219 pg/mL (<100); Troponin-I High Sensitivity 6.3 ng/L (<3.5-17.0)
[2020-12-26 11:48] LABS: Alanine Aminotransferase 46 U/L (0-31); Albumin Level 3.8 g/dL (3.5-5.0); Alkaline Phosphatase 95 U/L (39-117); Anion Gap 11 (12-20); Aspartate Amino Transferase 25 U/L (5-31); Bilirubin Direct 0.2 mg/dL (0.0-0.5); Bilirubin Total 0.5 mg/dL (0.0-1.0); Blood Urea Nitrogen 38 mg/dL (9-16); Calcium 9.1 mg/dL (8.4-10.2); Carbon Dioxide 28 mmol/L (22-29); Chloride 108 mmol/L (96-108); Creatinine Clr Calc Pharmacy 29.2; Estimated Glomerular Filt Rate 36; Glucose Random 148 mg/dL (60-115); Potassium 5.1 mmol/L (3.3-5.1); Sodium 142 mmol/L (135-145); Total Protein 6.4 g/dL (6.5-8.0)
[2020-12-26 11:59] LABS: TSH reflex Free T4 1.55 uIU/mL (0.32-4.0)
[2020-12-26 12:06] VITALS: BP 176/53; PULSE 59; RESP 19; O2SAT 97
[2020-12-26 12:15] LABS: Glucose Urine UA 100 MG/DL (NEG); Leukocyte Esterase Urine NEG (NEG); Nitrite Urine NEG (NEG); Urine Blood NEG (NEG); Urine Ketones NEG (NEG); Urine Protein TRACE MG/DL (NEG-TRACE)
[2020-12-26 12:20] LABS: Appearance Urine CLOUDY; Color Urine YELLOW
[2020-12-26] MEDS: Furosemide 20 MG TABLET PO (12:54)
== END 2020-12-26 12:59 | disposition home or self-care (01) ==
PROVIDERS: Emergency Provider Emergency Medicine Emergency Medical Services; PCP Internal Medicine
DX: R22.43 Localized swelling, mass and lump, lower limb, bilateral (principal); R22.33 Localized swelling, mass and lump, upper limb, bilateral; R22.0 Localized swelling, mass and lump, head; M71.22 Synovial cyst of popliteal space [Baker], left knee
CPT/HCPCS: 36415; 71045; 80048; 80076; 81003; 83880; 84443; 84484; 85025; 85610; 93005; 93970; 99284

== ENCOUNTER 2021-01-27 08:55 | Outpatient (REF) | payer MEDICARE, SELFPAY ==
[2021-01-27 10:09] LABS: MANUAL DIFF FLAG NO
[2021-01-27 10:18] LABS: Basophils Percent Auto 0.7 % (0-2); Eosinophils Absolute Auto 0.3 X10*3/uL (0.0-0.4); Eosinophils Percent Auto 5.4 % (0-4); Hematocrit 32.9 % (37-47); Hemoglobin 10.3 g/dl (12.0-16.0); Imm Gran Abs Auto 0.01 X10*3/uL (0.00-0.03); Imm Gran Pct Auto 0.2 % (0.0-0.4); Lymphocytes Absolute Auto 1.2 X10*3/uL (1.2-4.9); Lymphocytes Percent Auto 20.2 % (20-40); Mean Corpuscular HGB Conc 31.3 g/dl (31.0-35.0); Mean Corpuscular Hemoglobin 29.8 pg (27.0-33.0); Mean Corpuscular Volume 95.1 fL (80-98); Mean Platelet Volume 10.9 fL (9.4-12.3); Monocytes Absolute Auto 0.5 X10*3/uL (0.1-1.2); Monocytes Percent Auto 8.7 % (2-11); Neutrophils Percent Auto 64.8 % (45-73); Platelet Count 207 X10*3/uL (160-400); Red Blood Count 3.46 X10*6/uL (4.20-5.50); Red Cell Distribution Width 12.4 % (11.0-16.0); White Blood Count 6.1 X10*3/uL (4.8-10.8)
[2021-01-27 10:31] LABS: Anion Gap 11 (12-20); Blood Urea Nitrogen 31 mg/dL (9-16); Calcium 9.2 mg/dL (8.4-10.2); Carbon Dioxide 28 mmol/L (22-29); Chloride 107 mmol/L (96-108); Estimated Glomerular Filt Rate 32; Potassium 5.4 mmol/L (3.3-5.1); Sodium 141 mmol/L (135-145)
== END 2021-01-27 08:56 | disposition home or self-care (01) ==
LOC: HO.LAB 08:55
PROVIDERS: PCP Internal Medicine; Visit Provider Internal Medicine Nephrology
DX: I12.9 Hypertensive chronic kidney disease with stage 1 through stage 4 chronic kidney disease, or unspecified chronic kidney disease (principal); N18.31 Chronic kidney disease, stage 3a; E11.22 Type 2 diabetes mellitus with diabetic chronic kidney disease; E11.21 Type 2 diabetes mellitus with diabetic nephropathy
CPT/HCPCS: 36415; 80051; 82310; 82565; 84520; 85025

== ENCOUNTER 2021-04-15 09:37 | Emergency (ER) | payer MEDICARE, SELFPAY ==
--- NOTE | ~2021-04-15 | XR_ITS ---
EXAMINATION: XR SHOULDER, LEFT CLINICAL INFORMATION: Fall with pain COMPARISON: None TECHNIQUE: Four views of the left shoulder. FINDINGS: There is an essentially nondisplaced fracture of the greater tuberosity. No dislocation. There is some mild degenerative change of the glenohumeral joint with some subchondral cyst formation marginal spurring. XR/XR shoulder LT min 2V IMPRESSION: Left proximal humeral greater tuberosity fracture without significant displacement.
[2021-04-15 09:41] VITALS: BP 156/68; PULSE 68; RESP 18; TEMP 36.6; O2SAT 98; BMI 43.0
--- NOTE | 2021-04-15 10:48 | ED.UPPEXIN ---
HPI - Extremity Injury (Upper) General Chief Complaint: Extremity Injury, Upper Stated Complaint: lt arm pain Time Seen by Provider: 04/15/21 10:17 Source: patient and family (Daughter at bedside) Mode of arrival: ambulatory Limitations: language barrier (Turkmen-speaking) History of Present Illness HPI narrative: 70-year-old female presenting to the ED with her daughter at bedside with complaints of left shoulder pain after she had a mechanical fall approximately 1 and half to 2 weeks ago where she was in her house and she stumbled on her sandal fell onto her left shoulder and since then has been having pain to the left shoulder and limited range of motion. She reports when she tries to lift her arm she has excruciating pain. She reports 10/10 pain. She denies head injury or loss of consciousness. She reports she takes a baby aspirin otherwise no other blood thinners. She denies any other injuries complaints or concerns at this time. She denies any symptoms prior to the fall. She denies prolonged downtime. She reports only pain to left shoulder after the fall no other symptoms. MD complaint: injury to: left and shoulder Onset (ago): week(s) (Approximately 1-1/2 to 2 weeks ago) Other Extremity Injury: left: shoulder Other injuries: none Place: home Severity: severe Severity scale (1-10): >10 Relieving factors: immobilization Exacerbating factors: movement of extremity Context: fall Associated symptoms: denies other symptoms Treatments prior to arrival: cold therapy and other (And Tylenol symptomatic relief) Related Data Home Medications Medication Instructions Recorded Confirmed metoprolol tartrate 25 mg tablet 25 mg PO BID 06/16/20 12/12/20 aspirin 81 mg tablet,delayed 81 mg PO DAILY 09/19/20 12/12/20 release ascorbic acid (vitamin C) 250 mg 250 mg PO DAILY 11/26/20 12/12/20 tablet (Vitamin C) gabapentin 300 mg capsule 300 mg PO BEDTIME 11/26/20 12/12/20 hydralazine 25 mg tablet 25 mg PO BID 11/26/20 12/12/20 multivitamin 1 tab PO DAILY 11/26/20 12/12/20 Previous Rx's Medication Instructions Recorded Novolog Flexpen U-100 Insulin 100 18 - 20 unit SUBCUT TID 90 Days 12/12/20 unit/mL (3 mL) subcutaneous #45 ml NS (insulin aspart U-100) pen needle, diabetic 32 gauge x #400 ea 12/12/20 (BD Kelly 2nd Gen Pen Needle) furosemide 20 mg tablet (Lasix) 20 mg PO DAILY #7 tab 12/26/20 cholecalciferol (vitamin D3) 50 50 mcg PO DAILY #90 cap 01/27/21 mcg (2,000 unit) capsule insulin glargine 100 unit/mL (3 25 unit SUBCUT BEDTIME 90 Days #30 01/28/21 mL) subcutaneous pen ml semaglutide 3 mg tablet (Rybelsus) 3 mg PO DAILY 30 Days #30 tab 01/28/21 semaglutide 7 mg tablet (Rybelsus) 7 mg PO DAILY 30 Days #30 tab 01/28/21 atorvastatin 40 mg tablet 40 mg PO BEDTIME 90 Days #90 tab 03/17/21 acetaminophen 500 mg tablet 1,000 mg PO QID PRN #14 tab 04/15/21 (Tylenol Extra Strength) lidocaine HCl 4 % topical cream 1 appl TOPICAL BID PRN #120 g 04/15/21 (Aspercreme (lidocaine HCl)) oxycodone 5 mg tablet 5 mg PO Q6H PRN #14 tab 04/15/21 Allergies Allergy/AdvReac Type Severity Reaction Status Date / Time metformin [From GLUCOPHAGE] AdvReac Unknown DIARRHEA Verified 09/19/20 12:31 Review of Systems Review of Systems: Constitutional : No Weight loss, No Fever, No Chills, No Night Sweats, No Fatigue, No Malaise ENT/Mouth : No Hearing loss, No Ear Pain, No Nasal Congestion, No Sinus Pain, No Hoarseness, No sore throat, No Rhinorrhea, No Swallowing Difficulty Eyes: No Eye Pain, No Swelling, No Redness, No Foreign Body, No Discharge, No Vision Changes Cardiovascular : No Chest Pain, No SOB, No Dyspnea on Exertion, No Orthopnea, No Edema, No Palpitations Respiratory : No Cough, No Sputum, No Wheezing, No Smoke Exposure, No Dyspnea Gastrointestinal : No Nausea, No Vomiting, No Diarrhea, No Constipation, No abdominal Pain, No Hematochezia, No Melena Genitourinary : no irregular bleeding, No Dysuria, No Urinary Frequency, No Hematuria, No Urinary Incontinence, No Urgency, No Flank Pain, No Urinary Flow Changes, No Hesitancy Musculoskeletal : Positive left shoulder joint pain, No Myalgias, No Joint Swelling Skin : No Skin Lesions, No rash Neuro : No Weakness, No Numbness, No Paresthesias, No Loss of Consciousness, No Dizziness, No Headache Psych : No Anxiety/Panic, No Depression, No SI/HI/AH/VH, No Social Issues, Heme/Lymph: No Bruising, No Bleeding,No Lymphadenopathy Endocrine : No Polyuria, No Polydipsia, No Temperature Intolerance Yes all other systems are reviewed and are negative [facility] Past Medical History Attestation statement: The following information was validated with the patient. 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 Morbid obesity Peripheral nerve facial nerve paralysis Surgical History History of appendectomy Hx of bilateral cataract extraction Hx of hysterectomy Hx of tubal ligation Family History Family History Father Cancer Mother Diabetes mellitus Social History Social History Household Members: None Housing: Apartment Do you presently have visiting nurse or other home services: Yes Alcohol intake: never Patient Tobacco Use Status: Never used Tobacco Second Hand Smoke Exposure: No Advance Directives: Yes Advance Directives Information Provided: Yes Advance Directives on File: No Advance Directives Date on File: 11/26/20 service: No Current occupational status: disabled Physical Exam Vital Signs: Vital Signs: Last Vital Signs Temp 98 F 04/15/21 09:41 Pulse 68 04/15/21 09:41 Resp 18 04/15/21 09:41 BP 156/68 H 04/15/21 09:41 Pulse Ox 98 04/15/21 09:41 Body Mass Index 43.0 vital signs have been reviewed as normal and appeared to be correct. Blood pressure hypertensive at 156/68. Heart rate normal. Respiration rate normal. Temperature normal. Oxygen saturation normal. Appearance: Alert. Oriented X3. No acute distress. Head: Normal external exam. Normocephalic. Atraumatic. Eyes: PERRLA. EOMI. Conjunctiva and sclera normal. Eyelids normal. ENT: Pharynx normal. Uvula midline. Moist mucous membranes. Neck: Normal inspection. Neck supple. FROM. No adenopathy. No meningeal signs. CVS: Normal heart rate and rhythm. Heart sound normal. Pulses normal throughout. No murmurs/rales/gallops. Respiratory: No respiratory distress. Painless inspiration. Breath sounds normal. No wheezes/rales/rhonchi noted. Chest nontender. No accessory muscle usage noted or decreased air movement noted. Back: Full range of motion noted. No rashes/lesion/induration/fluctuance or signs of infection noted. Skin: Skin warm and dry. Normal skin color. Normal skin turgor. No rashes/lesions/lacerations noted. Extremities: Patient with tenderness palpation to left shoulder joint at this AC aspect and posterior aspect with limited range of motion due to pain. Although she has good strength when she squeezes my fingers with her hands. She is also able to lift her shoulders and keep them up without any difficulties. She has ecchymosis noted to the proximal/mid aspect of the left shoulder/forearm joint. No signs of infection. No obvious ligamentous or tendon injury noted on my exam. Otherwise all other extremities extremities exhibit normal range of motion and nontender. Neuro: Oriented X 3. No motor deficit. No sensory deficit. Reflexes normal. Normal steady gait. No focal neuro deficits noted. Vascular: + radial pulses Normal cap refill. No cyanosis noted to upper extremity nails Course Course Course Narrative: 70-year-old female presenting to the ED with complaints of left shoulder pain for approximately 1-1/2 to 2 weeks after she had a mechanical fall in her house with injury to the left shoulder. Denies head injury or loss of consciousness. Reports she is on a baby aspirin no other blood thinners. Reports it was a mechanical fall no symptoms prior to the fall. No prolonged down time. Patient has limited range of motion to the left shoulder joint. Although no obvious ligamentous injury or tendon injury. Patient has no signs of infection although has ecchymosis noted. X-ray obtained and revealed left proximal humeral great tuberosity fracture without significant displacement. Therefore I consulted with orthopedic physician dental office assistant Cally who recommended placing the patient in a sling. Will DC home with a sling instructions to return if any new or worsening symptom long with symptomatic treatment instructions to follow-up with orthopedic and to return if any new or worsening symptoms. Patient understands agrees with this plan. MDM - Extremity Injury (Upper) Medical Records Attestation: I reviewed the patient's medical records. Imaging Data Left shoulder x-ray: Attestation: I personally reviewed and interpreted this imaging study as follows: Radiologist's impression: FINDINGS: There is an essentially nondisplaced fracture of the greater tuberosity. No dislocation. There is some mild degenerative change of the glenohumeral joint with some subchondral cyst formation marginal spurring.? XR/XR shoulder LT min 2V IMPRESSION: Left proximal humeral greater tuberosity fracture without significant displacement. Procedures Orthopedic Splinting/Casting Injury #1: Side: left Upper Extremity Injury Location: shoulder Upper Extremity Immobilizer: sling/shoulder immobilizer Discharge Plan Discharge Clinical Impression: Fall, Closed fracture of left proximal humerus Patient Disposition: Home, Self-Care Instructions: How to Use a Sling (ED), Shoulder Fracture in Children (ED) Prescriptions: New acetaminophen [Tylenol Extra Strength] 500 mg tablet 1,000 mg PO QID PRN (Reason: fever or pain) Qty: 14 RF: 0 oxycodone 5 mg tablet 5 mg PO Q6H PRN (Reason: pain) Qty: 14 RF: 0 lidocaine HCl [Aspercreme (lidocaine HCl)] 4 % cream 1 appl topical BID PRN (Reason: pain) Qty: 120 RF: 0 No Action cholecalciferol (vitamin D3) 50 mcg (2,000 unit) capsule 50 mcg PO DAILY Qty: 90 RF: 1 Rybelsus 7 mg tablet 7 mg PO DAILY 30 Days Qty: 30 RF: 2 Rybelsus 3 mg tablet 3 mg PO DAILY 30 Days Qty: 30 RF: 0 insulin glargine 100 unit/mL (3 mL) insulin pen 25 unit subcut BEDTIME 90 Days Qty: 30 RF: 1 atorvastatin 40 mg tablet 40 mg PO BEDTIME 90 Days Qty: 90 RF: 2 furosemide [Lasix] 20 mg tablet 20 mg PO DAILY Qty: 7 RF: 0 hydralazine 25 mg tablet 25 mg PO BID RF: 0 gabapentin 300 mg capsule 300 mg PO BEDTIME RF: 0 multivitamin Tablet 1 tab PO DAILY RF: 0 ascorbic acid (vitamin C) [Vitamin C] 250 mg Tablet 250 mg PO DAILY RF: 0 metoprolol tartrate 25 mg tablet 25 mg PO BID RF: 0 aspirin 81 mg tablet,delayed release (DR/EC) 81 mg PO DAILY RF: 0 insulin aspart U-100 [Novolog Flexpen U-100 Insulin] 100 unit/mL (3 mL) insulin pen 18 - 20 unit subcut TID 90 Days Qty: 45 RF: 2 (DME) pen needle, diabetic [BD Kelly 2nd Gen Pen Needle] 32 gauge x 5/32 needle See Rx Instructions .MEDSUPPLY Qty: 400 RF: 4 Referrals: Ventura Shi MD [Primary Care Provider] - 2 days Hakeem Darling MD [Physician] - 2 days (Call to make follow-up appointment within the next week or two) Print Language: Turkmen
[2021-04-15] MEDS: oxyCODONE HCl Immed Release 5 MG TABLET PO (11:23)
== END 2021-04-15 11:48 | disposition home or self-care (01) ==
PROVIDERS: Emergency Provider Emergency Medicine; PCP Internal Medicine
DX: S42.202A Unspecified fracture of upper end of left humerus, initial encounter for closed fracture (principal); M25.512 Pain in left shoulder; W19.XXXA Unspecified fall, initial encounter; Y93.9 Activity, unspecified; Y92.9 Unspecified place or not applicable; Y99.9 Unspecified external cause status; Z91.81 History of falling; Z79.899 Other long term (current) drug therapy
CPT/HCPCS: 29105; 73030; 99284

== ENCOUNTER 2021-04-20 07:14 | Outpatient (REF) | payer MEDICARE, SELFPAY ==
--- NOTE | ~2021-04-20 | XR_ITS ---
EXAMINATION: XR SHOULDER, LEFT CLINICAL INFORMATION: Pain. COMPARISON: Radiograph of the left shoulder dated from 04/15/2021. TECHNIQUE: Two views of the left shoulder. FINDINGS: Redemonstration of a fracture within the greater tuberosity of the left humerus with approximately 4 mm of cortical step-off from the lateral surface of the proximal humeral cortex, similar to prior. No other fractures. The glenohumeral joint, acromioclavicular joint and coracoid process are intact. No evidence of acutely displaced left-sided rib fractures. There is overlying soft tissue edema in the shoulder. XR/XR shoulder LT min 2V IMPRESSION: Unchanged fracture of the greater tuberosity of the left humerus.
== END 2021-04-20 07:15 | disposition home or self-care (01) ==
LOC: HO.HOSX 07:14
PROVIDERS: Visit Provider Physician Assistant
DX: S42.202A Unspecified fracture of upper end of left humerus, initial encounter for closed fracture (principal)
CPT/HCPCS: 73030; 99202

== ENCOUNTER 2021-04-20 11:48 | Outpatient (REF) | payer MEDICARE, SELFPAY | END 2021-04-20 11:49 | disposition home or self-care (01) | LOC: HO.LAB 11:48 | PROVIDERS: PCP Internal Medicine; Visit Provider Internal Medicine | DX: Z20.822 Contact with and (suspected) exposure to COVID-19 (principal) | CPT/HCPCS: C9803; U0003; U0005 ==

== ENCOUNTER 2021-05-14 08:27 | Outpatient (REF) | payer MEDICARE, SELFPAY ==
--- NOTE | ~2021-05-14 | XR_ITS ---
EXAMINATION: XR SHOULDER, LEFT CLINICAL INFORMATION: Pain COMPARISON: 04/20/2021 TECHNIQUE: Three views of the left shoulder. FINDINGS: There is been progressive healing of the previously noted fracture through the greater tuberosity. The fracture line is less discrete. Alignment is unchanged. No significant angulation. Humeral head is well-seated in the glenoid fossa. Visualized left ribs unremarkable. XR/XR shoulder LT min 2V IMPRESSION: Progressive healing of the previously noted left greater tuberosity fracture.
== END 2021-05-14 08:28 | disposition home or self-care (01) ==
LOC: HO.HOSX 08:27
PROVIDERS: Visit Provider Physician Assistant
DX: S42.202A Unspecified fracture of upper end of left humerus, initial encounter for closed fracture (principal)
CPT/HCPCS: 73030; 99212

== ENCOUNTER 2021-05-19 11:01 | Outpatient (REF) | payer MEDICARE, SELFPAY ==
[2021-05-19 14:06] LABS: Anion Gap 13 (12-20); Blood Urea Nitrogen 29 mg/dL (9-16); Carbon Dioxide 26 mmol/L (22-29); Chloride 105 mmol/L (96-108); Estimated Glomerular Filt Rate 35; Potassium 4.8 mmol/L (3.3-5.1); Sodium 139 mmol/L (135-145)
[2021-05-19 14:21] LABS: Creatinine Urine 50.56 mg/dL; Protein/Creatinine Ratio, Ur 0.28 (<0.2); Total Protein Urine Random 14 mg/dL (<12)
== END 2021-05-19 11:02 | disposition home or self-care (01) ==
LOC: HO.10HDL 11:01
PROVIDERS: Visit Provider Internal Medicine Nephrology
DX: I12.9 Hypertensive chronic kidney disease with stage 1 through stage 4 chronic kidney disease, or unspecified chronic kidney disease (principal); N18.31 Chronic kidney disease, stage 3a; E11.22 Type 2 diabetes mellitus with diabetic chronic kidney disease; E11.21 Type 2 diabetes mellitus with diabetic nephropathy
CPT/HCPCS: 36415; 80051; 82310; 82565; 84156; 84520

== ENCOUNTER 2021-06-12 07:38 | Outpatient (REF) | payer MEDICARE, SELFPAY | END 2021-06-12 07:39 | disposition home or self-care (01) | LOC: HO.HOSX 07:38 | PROVIDERS: Visit Provider Physician Assistant | DX: Z13.89 Encounter for screening for other disorder (principal) ==

== ENCOUNTER 2021-06-17 07:06 | Outpatient (REF) | payer MEDICARE, SELFPAY | END 2021-06-17 07:07 | disposition home or self-care (01) | LOC: HO.HOSX 07:06 | PROVIDERS: Visit Provider Physician Assistant | DX: Z13.89 Encounter for screening for other disorder (principal) ==

== ENCOUNTER 2021-06-23 07:11 | Outpatient (REF) | payer MEDICARE, SELFPAY | END 2021-06-23 07:12 | disposition home or self-care (01) | LOC: HO.HOSX 07:11 | PROVIDERS: Visit Provider Physician Assistant | DX: Z13.89 Encounter for screening for other disorder (principal) ==

== ENCOUNTER 2021-07-31 07:32 | Outpatient (REF) | payer MEDICARE, SELFPAY | END 2021-07-31 07:33 | disposition home or self-care (01) | LOC: HO.HOSX 07:32 | PROVIDERS: Visit Provider Physician Assistant | DX: Z13.89 Encounter for screening for other disorder (principal) ==

== ENCOUNTER 2021-08-05 09:00 | Outpatient (RCR) | payer MEDICARE, SELFPAY ==
[2021-07-01 10:05] VITALS: BP 195/75; PULSE 59; O2SAT 96
== END 2021-08-11 13:03 | disposition home or self-care (01) ==
LOC: HO.PT 09:00
PROVIDERS: PCP Nurse Practitioner Primary Care; Visit Provider Nurse Practitioner Primary Care
DX: R53.1 Weakness (principal)
CPT/HCPCS: 97110; 97162; 97530

== ENCOUNTER → 2021-08-21 12:59 | Outpatient (BNVA) | payer MEDICARE, SELFPAY | PROVIDERS: Visit Provider Nurse Practitioner Gerontology | DX: E11.65 Type 2 diabetes mellitus with hyperglycemia (principal); E11.21 Type 2 diabetes mellitus with diabetic nephropathy; I12.9 Hypertensive chronic kidney disease with stage 1 through stage 4 chronic kidney disease, or unspecified chronic kidney disease; E11.22 Type 2 diabetes mellitus with diabetic chronic kidney disease; N18.30 Chronic kidney disease, stage 3 unspecified; E78.5 Hyperlipidemia, unspecified; E66.01 Morbid (severe) obesity due to excess calories; Z68.41 Body mass index [BMI] 40.0-44.9, adult; Z79.4 Long term (current) use of insulin | CPT/HCPCS: 82947; 99212 ==

== ENCOUNTER 2021-09-08 07:10 | Outpatient (REF) | payer MEDICARE, SELFPAY ==
--- NOTE | ~2021-09-08 | XR_ITS ---
EXAMINATION: XR SHOULDER, LEFT CLINICAL INFORMATION: Left shoulder pain COMPARISON: None TECHNIQUE: AP external rotation, Grashey, scapular Y, and axillary views of the left shoulder. FINDINGS: The bones and soft tissues are normal. No fracture. Glenohumeral and acromioclavicular alignment is anatomic with normal joint space. No abnormal soft tissue calcifications. XR/XR shoulder LT min 2V IMPRESSION: Unremarkable left shoulder exam.
== END 2021-09-08 07:11 | disposition home or self-care (01) ==
LOC: HO.HOSX 07:10
PROVIDERS: Visit Provider Physician Assistant
DX: S42.202D Unspecified fracture of upper end of left humerus, subsequent encounter for fracture with routine healing (principal); X58.XXXD Exposure to other specified factors, subsequent encounter
CPT/HCPCS: 73030; 99212

== ENCOUNTER 2021-09-10 09:00 | Outpatient (RCR) | payer MEDICARE, SELFPAY ==
--- NOTE | 2021-08-11 12:57 | MHC.PT.EP ---
[facility] [place] Office [place] Office [place] Office [address] Joe Barreto [address] [phone] F: [phone] F: [phone] F: [phone] F: [phone] Physical Therapy Plan of Care Date of Evaluation: Date of Surgery: Diagnosis: FRACTURE OF LEFT PROXIMAL HUMERUS, RTC PROTOCOL-> TREAT WITH RTC PROTOCOL FOR GREATER TUBEROSITY FX Assessment: 70 YO FEMALE REF TO PT W DX OF LEFT PROX HUMERAL FRACTURE SUSTAINED ON 04/15/21 AFTER SUSTAINING A FALL AT HOME- HER LEFT SH WAS INITIALLY IMMOB x APPROX 1.5 MO. SHE HAS LEFT SH ROM DEFICITS, (+) TRP Lt UT/ PARASCAP, DECR LEFT SH COMPLEX STRENGTH, AND DECR ADL USE W LEFT UE. SHE HAS A H/O CVA ON 11/26/20 (SHE HAD HER INITIAL CVA APPROX 25 YRS AGO). 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 Pt WOULD BENEFIT FROM PT TO ADDRESS LEFT SH PAIN MGMT, ROM,STRENGTH AND FUNCTIONAL MOB. Frequency and Duration: The patient will be seen 2 x WK x 5 WKS Short Term Goals: Pt DEMON WFL AROM Lt SH IN 1 WK Pt'S LEFT SH SXS DECR TO 2-3/10 IN 1 WK Pt INDEP SELF CORRECT POSTURE IN 1 WK Chcf Goals: Pt INDEP HEP AND SELF- SX MGMT TECHN IN 5 WKS Pt ABLE TO RESUME REG ADLs W Lt UE ASSIST IN 5 WKS Pt'S Lt SH STRENGTH INCR BY 1 GRADE IN 5 WKS Treatment Plan: Modalities to reduce pain, spasms and effusion. Manual therapy to restore motion and function. Therapeutic exercise to improve strength and flexibility. Neuromuscular re-education for posture and balance. Therapeutic activities to return to functional activities of daily living. Electronically signed by: Sonam IsaacPT Please sign and return to therapist. Thank you for your referral.
--- NOTE | 2021-09-22 10:51 | MHC.PT.DC ---
[facility] [place] Office [place] Office [place] Office [address] Joe Barreto [address] [phone] F: [phone] F: [phone] F: [phone] F: [phone] Physical Therapy Discharge Report Diagnosis: FRACTURE OF LEFT PROXIMAL HUMERUS, RTC PROTOCOL-> TREAT WITH RTC PROTOCOL FOR GREATER TUBEROSITY FX Date of Surgery: DOI 04/15/21 Date of Evaluation: 08/11/21 Date of Discharge: 09/22/21 Treatments to Date: 9 Cancellations to Date: 0 No Shows to Date: 1 Discharge Status: Achieved Goals Improved Function Independent with HEP Discharge Summary: CARINE HAS PROGRESSED WELL IN PT FOR HER LEFT SH- SHE HAS MET HER PT GOALS- SHE STATED SHE IS ABLE TO GET DRESSED AND PERFORM INCR ADLs W LEFT UE- SHE DEMON INDEP TRANSFERS/ BED MOB- HER STRENGTH HAS IMPROVED IN LEFT SCAP REGION, AND SHE PERF ABOVE THER EXER W/O HESITANCY OR PAIN IN LEFT SH- Electronically signed by: Sonam Isaac,PT Please sign and return to therapist. Thank you for your referral.
== END 2021-09-22 10:51 | disposition home or self-care (01) ==
LOC: HO.PT 09:00
PROVIDERS: Visit Provider Physician Assistant
DX: S42.202D Unspecified fracture of upper end of left humerus, subsequent encounter for fracture with routine healing (principal)
CPT/HCPCS: 97110; 97162

== ENCOUNTER 2021-09-15 10:58 | Outpatient (REF) | payer MEDICARE, SELFPAY ==
[2021-09-15 14:00] LABS: Hematocrit 34.3 % (37.0-47.0); Mean Corpuscular HGB Conc 32.1 g/dl (31.0-35.0); Mean Corpuscular Hemoglobin 30.1 pg (27.0-33.0); Mean Corpuscular Volume 93.7 fL (80.0-98.0); Mean Platelet Volume 11.7 fL (9.4-12.3); Platelet Count 204 X10*3/uL (160-400); Red Blood Count 3.66 X10*6/uL (4.20-5.50); Red Cell Distribution Width 11.9 % (11.0-16.0); White Blood Count 6.4 X10*3/uL (4.8-10.8)
[2021-09-15 14:09] LABS: Anion Gap 13 (12-20); Blood Urea Nitrogen 39 mg/dL (9-16); Calcium 9.4 mg/dL (8.4-10.2); Carbon Dioxide 28 mmol/L (22-29); Chloride 105 mmol/L (96-108); Estimated Glomerular Filt Rate 33; Potassium 4.9 mmol/L (3.3-5.1); Sodium 141 mmol/L (135-145)
== END 2021-09-15 10:59 | disposition home or self-care (01) ==
LOC: HO.10HDL 10:58
PROVIDERS: Visit Provider Internal Medicine Nephrology
DX: E11.21 Type 2 diabetes mellitus with diabetic nephropathy (principal); I12.9 Hypertensive chronic kidney disease with stage 1 through stage 4 chronic kidney disease, or unspecified chronic kidney disease; N18.31 Chronic kidney disease, stage 3a
CPT/HCPCS: 36415; 80051; 82310; 82565; 84520; 85027

== ENCOUNTER → 2021-10-19 08:50 | Outpatient (REF) | payer MEDICARE, SELFPAY ==
--- NOTE | ~2021-10-19 | NM_ITS ---
Lexiscan Myocardial perfusion study Indication: Chest pain, shortness of breath, assess for coronary disease and ischemia Technique: The patient was brought in for a Lexiscan perfusion study on 10/21/2021 and was injected 0.4 mg of Lexiscan intravenously. Within a minute of this injection 30 mCi of sestamibi was given intravenously. Images were obtained using the SPECT gamma camera interlaced with the gating device. Images were obtained in supine position. Resting perfusion study was performed on 10/20/2021. Patient was administered 30 mCi of sestamibi intravenously at rest. Images were then obtained in supine position. Total DLP 101mGy-cm. Images were processed with the software and compared side to side in short axis, horizontal long axis and vertical long axis views. Findings: Raw acquisition was reviewed. The stress perfusion study showed no significant perfusion abnormality. Both uncorrected as well as CT attenuation corrected images were reviewed. The gated study shows normal LV systolic function with calculated LVEF of 68%. LV cavity is normal in size. The gated study shows normal wall thickening and contraction of segments. Resting study shows no significant perfusion abnormality. Gating at rest reveals normal wall motion. Calculated LVEF 44% but visually appears to be normal range The findings are consistent with no reversible or fixed perfusion abnormality. NM/NM hattie perf SPECT rest & str Impression: 1. Myocardial perfusion imaging study shows no reversible or fixed perfusion abnormality. 2. Gated LVEF is 58% during stress. Resting LVEF does not appear reliable. 3. Transient ischemic dilatation not present. EKG component of the test reported separately.
--- NOTE | 2021-10-19 08:54 | CA_ITS ---
Acquisition Time: 2021-10-21 10:05:03 Total Exercise Time: 00:02:00 Test Indications: Dyspnea Medications: SEE H Protocol: LEXISCAN Max HR: 077 BPM 50% of Pred: 151 BPM Max BP: 152/074 mmHG Max Work Load: 1.0 METS Pharmacological stress test with Lexiscan injection, while sitting and kicking her legs, without anginal symptoms, without arrythmia, with normotensive response to injection, with nondiagnostic EKG for ischemia. Nuclear images pending. Test reviewed with Dr Camejo. Referred By: Jann Whitley Overread By: SHARIFA SOLARES
== END ==
LOC: HO.CARD 08:50
PROVIDERS: Visit Provider Physician Assistant Medical
DX: R07.9 Chest pain, unspecified (principal); R06.02 Shortness of breath; R06.00 Dyspnea, unspecified
CPT/HCPCS: 78452; 93017; A9500; J2785

== ENCOUNTER → 2021-10-20 12:53 | Outpatient (BNVA) | payer MEDICARE, SELFPAY | PROVIDERS: PCP Internal Medicine; Visit Provider Physician Assistant | DX: S42.202D Unspecified fracture of upper end of left humerus, subsequent encounter for fracture with routine healing (principal) | CPT/HCPCS: 99212 ==

== ENCOUNTER 2021-12-02 13:29 | Outpatient (REF) | payer OTHER, SELFPAY ==
[2021-12-02 14:25] LABS: Anion Gap 13 (12-20); Blood Urea Nitrogen 47 mg/dL (9-16); Calcium 9.4 mg/dL (8.4-10.2); Carbon Dioxide 31 mmol/L (22-29); Chloride 104 mmol/L (96-108); Estimated Glomerular Filt Rate 28; Potassium 5.2 mmol/L (3.3-5.1); Sodium 143 mmol/L (135-145)
== END 2021-12-02 13:30 | disposition home or self-care (01) ==
LOC: HO.LAB 13:29
PROVIDERS: PCP Internal Medicine; Visit Provider Internal Medicine Nephrology
DX: I12.9 Hypertensive chronic kidney disease with stage 1 through stage 4 chronic kidney disease, or unspecified chronic kidney disease (principal); E11.22 Type 2 diabetes mellitus with diabetic chronic kidney disease; N18.31 Chronic kidney disease, stage 3a; E11.21 Type 2 diabetes mellitus with diabetic nephropathy
CPT/HCPCS: 36415; 80051; 82310; 82565; 84520

== ENCOUNTER 2021-12-18 08:52 | Outpatient (REF) | payer OTHER, SELFPAY ==
[2021-12-18 10:48] LABS: Blood Urea Nitrogen 33 mg/dL (9-16); Calcium 9.2 mg/dL (8.4-10.2); Estimated Glomerular Filt Rate 29
[2021-12-18 10:52] LABS: Creatinine Urine 85.06 mg/dL; Protein/Creatinine Ratio, Ur 0.19 (<0.2); Total Protein Urine Random 16 mg/dL (<12)
[2021-12-18 11:00] LABS: Anion Gap 11 (12-20); Carbon Dioxide 31 mmol/L (22-29); Chloride 103 mmol/L (96-108); Potassium 6.1 mmol/L (3.3-5.1); Sodium 139 mmol/L (135-145)
== END 2021-12-18 08:53 | disposition home or self-care (01) ==
LOC: HO.LAB 08:52
PROVIDERS: PCP Internal Medicine; Visit Provider Internal Medicine Nephrology
DX: E11.21 Type 2 diabetes mellitus with diabetic nephropathy (principal); N18.31 Chronic kidney disease, stage 3a
CPT/HCPCS: 36415; 80051; 82310; 82565; 84156; 84520

== ENCOUNTER 2022-04-28 13:28 | Outpatient (REF) | payer OTHER, SELFPAY ==
--- NOTE | ~2022-04-28 | MM_ITS ---
EXAMINATION: MM SCREENING DIGITAL BREAST TOMOSYNTHESIS, BILATERAL CLINICAL INFORMATION: Screening. Asymptomatic. The lifetime risk of breast cancer based on the Tyrer-Cuzick Model is 3%. COMPARISON: Mammography: 02/26/2019, 02/06/2018, 01/11/2017, 07/06/2016, 12/03/2015 TECHNIQUE: Digital breast tomosynthesis is performed in both the craniocaudal and mediolateral oblique views along with computer-aided detection (CAD). Synthesized 2D images are generated from the tomosynthesis. FINDINGS: There are scattered areas of fibroglandular density (ACR BI-RADS breast composition Category b). Parenchymal pattern is similar to prior studies and there is no interval mass or architectural abnormality or developing density. The axilla and skin contours are unremarkable. Again, there are scattered bilateral predominantly vascular calcifications and some scattered benign round calcifications. Right breast has grouped calcifications posterior central breast which appear possibly increased. Patient will be recalled for additional imaging. MM/MM tomosynthesis screening BI IMPRESSION: Right: -Calcifications posterior central breast, possibly increased. Left: -No mammographic evidence of malignancy. ASSESSMENT: BI-RADS 0: Incomplete - Need Additional Imaging Evaluation RECOMMENDATION: 1. Additional views of the right breast (magnification CC, magnification ML). 2. Radiology department staff will contact the patient for additional imaging. This patient's information was entered into a reminder system with a target due date for their next mammogram.
== END 2022-04-28 13:29 | disposition home or self-care (01) ==
LOC: HO.MAMMO 13:28
PROVIDERS: PCP Internal Medicine; Visit Provider Internal Medicine
DX: Z12.31 Encounter for screening mammogram for malignant neoplasm of breast (principal)
CPT/HCPCS: 77063; 77067

== ENCOUNTER 2022-05-05 14:16 | Outpatient (REF) | payer OTHER, SELFPAY ==
--- NOTE | ~2022-05-05 | MM_ITS ---
EXAMINATION: MM DIAGNOSTIC DIGITAL MAMMOGRAPHY, RIGHT CLINICAL INFORMATION: Recall from screening for grouped calcifications posterior central right breast, possibly increased. COMPARISON: Mammography: 04/28/2022 (BI-RADS 0), 02/26/2019, 02/06/2018 (diagnostic). TECHNIQUE: Digital mammography is performed in the following views: Magnification CC x2, magnification ML x2. FINDINGS: There are scattered areas of fibroglandular density (ACR BI-RADS breast composition Category b). There are grouped calcifications which vary in size and attenuation and are increased from prior diagnostic exam 2018. The calcifications are arranged in a oval pattern which may suggest fibroadenomatous change. Stereotactic sampling is recommended for further assessment. Results are discussed with the patient at time of visit, using an water resources technical officer. MM/MM added views RT IMPRESSION: Grouped calcifications posterior central right breast increased since prior exam and which vary in size and attenuation. ASSESSMENT: BI-RADS 4: Suspicious RECOMMENDATION: Stereotactic sampling right breast calcifications. This patient's information was entered into a reminder system with a target due date for their next mammogram.
== END 2022-05-05 14:17 | disposition home or self-care (01) ==
LOC: HO.MAMMO 14:16
PROVIDERS: PCP Internal Medicine; Visit Provider Internal Medicine
DX: R92.1 Mammographic calcification found on diagnostic imaging of breast (principal)
CPT/HCPCS: 77065

== ENCOUNTER → 2022-05-12 14:06 | Outpatient (BNVA) | payer OTHER, SELFPAY | PROVIDERS: PCP Internal Medicine; Visit Provider Surgery | DX: R92.1 Mammographic calcification found on diagnostic imaging of breast (principal) | CPT/HCPCS: 99202 ==

== ENCOUNTER 2022-05-25 08:12 | Outpatient (REF) | payer OTHER, SELFPAY ==
[2022-05-25 10:55] LABS: Anion Gap 16 (12-20); Blood Urea Nitrogen 44 mg/dL (9-16); Calcium 9.3 mg/dL (8.4-10.2); Carbon Dioxide 27 mmol/L (22-29); Chloride 105 mmol/L (96-108); Estimated Glomerular Filt Rate 28; Sodium 143 mmol/L (135-145)
== END 2022-05-25 08:13 | disposition home or self-care (01) ==
LOC: HO.10HDL 08:12
PROVIDERS: Visit Provider Internal Medicine Nephrology
DX: I12.9 Hypertensive chronic kidney disease with stage 1 through stage 4 chronic kidney disease, or unspecified chronic kidney disease (principal); N18.31 Chronic kidney disease, stage 3a; E11.21 Type 2 diabetes mellitus with diabetic nephropathy
CPT/HCPCS: 36415; 80051; 82310; 82565; 84520

== ENCOUNTER → 2022-06-21 15:00 | Outpatient (BNVA) | payer OTHER, SELFPAY | PROVIDERS: PCP Internal Medicine; Visit Provider Surgery | DX: R92.1 Mammographic calcification found on diagnostic imaging of breast (principal) | CPT/HCPCS: 99212 ==

== ENCOUNTER → 2022-07-05 12:42 | Outpatient (REF) | payer OTHER, SELFPAY | LOC: HO.SL 12:42 | PROVIDERS: PCP Internal Medicine; Visit Provider Internal Medicine | DX: G47.10 Hypersomnia, unspecified (principal); R06.83 Snoring | CPT/HCPCS: 95806 ==

== ENCOUNTER 2022-08-03 08:09 | Outpatient (REF) | payer OTHER, SELFPAY ==
[2022-08-03 11:23] LABS: Anion Gap 12 (12-20); Blood Urea Nitrogen 39 mg/dL (9-16); Calcium 9.2 mg/dL (8.4-10.2); Carbon Dioxide 28 mmol/L (22-29); Chloride 106 mmol/L (96-108); Estimated Glomerular Filt Rate 33; Potassium 5.5 mmol/L (3.3-5.1); Sodium 140 mmol/L (135-145)
== END 2022-08-03 08:10 | disposition home or self-care (01) ==
LOC: HO.10HDL 08:09
PROVIDERS: Visit Provider Internal Medicine Nephrology
DX: I12.9 Hypertensive chronic kidney disease with stage 1 through stage 4 chronic kidney disease, or unspecified chronic kidney disease (principal); E11.22 Type 2 diabetes mellitus with diabetic chronic kidney disease; N18.31 Chronic kidney disease, stage 3a; E11.21 Type 2 diabetes mellitus with diabetic nephropathy
CPT/HCPCS: 36415; 80051; 82310; 82565; 84520

== ENCOUNTER 2022-09-06 09:58 | Emergency (ER) | payer OTHER, SELFPAY ==
--- NOTE | ~2022-09-06 | CT_ITS ---
EXAMINATION: CT ABDOMEN AND PELVIS WITHOUT CONTRAST CLINICAL INFORMATION: Flank pain. COMPARISON: None TECHNIQUE: Multidetector volumetric imaging was performed from the superior aspect of the liver through the pubic symphysis. Sagittal and coronal reformatted images were obtained on the technologist's workstation. This CT examination was performed using dose optimization techniques as appropriate, variously including the following: *Automated exposure control *Adjustment of mA and/or kV according to patient size (this includes techniques or standardized protocols for targeted exams where dose is matched to indication/reason for exam; i.e. extremities or head) *Use of iterative reconstruction technique DLP: 644 mGy-cm FINDINGS: LUNG BASES: The visualized lung bases are unremarkable. Coronary artery calcifications. LIVER, GALLBLADDER, AND BILIARY TREE: The liver is normal in size, shape, and attenuation. No focal hepatic lesion or biliary ductal dilatation is present. The gallbladder is unremarkable with no evidence of radiopaque gallstones, gallbladder wall thickening, or obvious pericholecystic inflammatory changes. PANCREAS: Unremarkable. SPLEEN: Unremarkable. ADRENAL GLANDS: Unremarkable. KIDNEYS AND URETERS: The kidneys are normal in size, shape, and attenuation. No hydronephrosis, hydroureter, or calculi seen. No perinephric stranding. BLADDER: Unremarkable. GASTROINTESTINAL TRACT: There are scattered diverticula of the colon. There is no diverticulitis. There is no bowel wall thickening /edema. There is no bowel obstruction. There is a moderate to large volume of stool in the colon. The appendix is nonvisualized . There is no inflammatory change of the mesentery. The small bowel loops are unremarkable. The stomach is normal. There is no hiatal hernia. ABDOMINAL WALL: No significant hernia is appreciated. Small focal area of skin thickening and subcutaneous induration without focal fluid collection. The left anterior abdominal wall about the level the umbilicus. Axial image 43/86 series 3 LYMPH NODES: Normal. VASCULAR: Vascular wall calcifications of aorta and iliac arteries. There is no aneurysm. PELVIC VISCERA: Status post hysterectomy. No adnexal abnormality. OSSEOUS STRUCTURES: Unremarkable. CT/CT abdomen pelvis wo IV con IMPRESSION: No acute abnormality CT scan abdomen pelvis. Fleischner guidelines were followed.
[2022-09-06 10:10] VITALS: BP 126/37; PULSE 63; RESP 16; TEMP 36.6; O2SAT 96; BMI 43.0
[2022-09-06 10:31] LABS: MANUAL DIFF FLAG NO
[2022-09-06 10:37] LABS: Basophils Percent Auto 0.5 % (0-2); Eosinophils Absolute Auto 0.3 X10*3/uL (0.0-0.4); Eosinophils Percent Auto 4.7 % (0-4); Hematocrit 36.2 % (37.0-47.0); Imm Gran Abs Auto 0.02 X10*3/uL (0.00-0.03); Imm Gran Pct Auto 0.3 % (0.0-0.4); Lymphocytes Absolute Auto 1.5 X10*3/uL (1.2-4.9); Lymphocytes Percent Auto 22.6 % (20-40); Mean Corpuscular HGB Conc 33.1 g/dl (31.0-35.0); Mean Corpuscular Hemoglobin 30.1 pg (27.0-33.0); Mean Corpuscular Volume 90.7 fL (80.0-98.0); Mean Platelet Volume 10.6 fL (9.4-12.3); Monocytes Absolute Auto 0.5 X10*3/uL (0.1-1.2); Monocytes Percent Auto 7.9 % (2-11); Neutrophils Absolute Auto 4.1 x10*3/uL (2.0-8.3); Platelet Count 194 X10*3/uL (160-400); Red Blood Count 3.99 X10*6/uL (4.20-5.50); Red Cell Distribution Width 11.6 % (11.0-16.0); White Blood Count 6.5 X10*3/uL (4.8-10.8)
[2022-09-06 10:45] LABS: Appearance Urine Clear; Color Urine Yellow; Glucose Urine UA 100 mg/dL (Negative); Leukocyte Esterase Urine Negative (Negative); Nitrite Urine Negative (Negative); PH 7.5 (5.0-9.0); UMIC TRIGGER UACC YES; Urine Blood Negative (Negative); Urine Ketones Negative (Negative); Urine Protein 100 (2+) mg/dL (Neg-Trace)
[2022-09-06 10:50] LABS: Bacteria Urine None Seen (None Seen); Hyaline Casts Urine 0-2 /LPF (0-2); RBC Urine 0-2 /HPF (0-2); WBC Urine 0-5 /HPF (0-5)
[2022-09-06 10:57] LABS: Alanine Aminotransferase 16 U/L (0-31); Alkaline Phosphatase 105 U/L (39-117); Anion Gap 12 (12-20); Aspartate Amino Transferase 18 U/L (5-31); Bilirubin Total 0.6 mg/dL (0.0-1.0); Blood Urea Nitrogen 36 mg/dL (9-16); Calcium 9.4 mg/dL (8.4-10.2); Carbon Dioxide 29 mmol/L (22-29); Chloride 103 mmol/L (96-108); Creatinine Clr Calc Pharmacy 27.5; Estimated Glomerular Filt Rate 35; Glucose Random 190 mg/dL (60-115); Potassium 5.1 mmol/L (3.3-5.1); Sodium 139 mmol/L (135-145); Total Protein 6.9 g/dL (6.5-8.0)
--- NOTE | 2022-09-06 11:20 | ED_ITS ---
HPI - General Adult General Chief complaint: General Medical Stated complaint: back pain Time Seen by Provider: 09/06/22 11:20 Source: patient, family (patient's daughter) and fifth hand Limitations: language barrier History of Present Illness HPI narrative: Patient is a 71 year old assigned female at with a history of DM presenting to the emergency department today with left sided flank pain. Patient states that over the last 2 weeks she has had left sided flank pain that is worse with movement and deep breaths. Patient denies any dizziness, lightheadedness, abdominal pain, nausea, vomiting, fever, chills, blurry vision, double vision, loss of vision, chest pain, difficulty breathing, shortness of breath, back pain, night sweats, pain with urination, increased urinary frequency, increased urinary urgency, blood in her urine or stool, syncope or a near syncopal episode, recent trauma or falls, bowel incontinence, bladder incontinence, bowel retention, bladder retention, or any other complaints at this time. Onset (ago): week(s) (2) Location: left (flank) Radiation: non-radiation Severity: mild Severity scale (1-10): 2 Quality: dull Relieving factors: none Exacerbating factors: movement Associated symptoms: denies other symptoms Treatments prior to arrival: none Related Data Home Medications Medication Instructions Recorded Confirmed metoprolol tartrate 25 mg tablet 25 mg PO BID 06/16/20 06/21/22 aspirin 81 mg tablet,delayed 81 mg PO DAILY 09/19/20 06/21/22 release ascorbic acid (vitamin C) 250 mg 250 mg PO DAILY 11/26/20 06/21/22 tablet (Vitamin C) hydralazine 25 mg tablet 25 mg PO BID 11/26/20 06/21/22 multivitamin 1 tab PO DAILY 11/26/20 06/21/22 Previous Rx's Medication Instructions Recorded furosemide 20 mg tablet (Lasix) 20 mg PO DAILY #7 tabs 12/26/20 cholecalciferol (vitamin D3) 50 50 mcg PO DAILY #90 caps 01/27/21 mcg (2,000 unit) capsule acetaminophen 500 mg tablet 1,000 mg PO QID PRN fever or pain 04/15/21 (Tylenol Extra Strength) #14 tabs lidocaine HCl 4 % topical cream 1 appl topical BID PRN pain #120 04/15/21 (Aspercreme (lidocaine HCl)) grams oxycodone 5 mg tablet 5 mg PO Q6H PRN pain #14 tabs 04/15/21 blood sugar diagnostic (FreeStyle #100 ea 08/21/21 Lite Strips) gabapentin 300 mg capsule 300 mg PO BEDTIME #90 caps 08/21/21 insulin glargine 100 unit/mL (3 22 unit (0.22 mL) subcut BEDTIME 08/21/21 mL) subcutaneous pen 90 days #30 mL lancets 33 gauge (TRUEplus Lancets) #100 ea 08/21/21 semaglutide 3 mg tablet (Rybelsus) 3 mg PO DAILY 30 days #30 tabs 08/21/21 semaglutide 7 mg tablet (Rybelsus) 7 mg PO DAILY 30 days #30 tabs 08/21/21 Novolog FlexPen U-100 Insulin 100 18 - 20 unit (0.18 - 0.2 mL) 10/28/21 unit/mL (3 mL) subcutaneous subcut TID 90 days #45 mL (insulin aspart U-100) atorvastatin 40 mg tablet 40 mg PO BEDTIME #90 tabs 12/15/21 pen needle, diabetic 32 gauge x #400 ea 02/17/22/32 (BD Kelly 2nd Gen Pen Needle) cyclobenzaprine 5 mg tablet 5 mg PO TID PRN muscle spasm 7 09/06/22 days #21 tabs Allergies Allergy/AdvReac Type Severity Reaction Status Date / Time metformin [From GLUCOPHAGE] AdvReac Unknown DIARRHEA Verified 06/21/22 15:11 Review of Systems Constitutional: Constitutional: Reports no additional constitutional complaints, Denies chills, Denies fever(s) and Denies night sweats Eyes: Eyes: Reports no additional eye complaints, Denies blurry vision, Denies change in vision, Denies diplopia, Denies eye discharge, Denies loss of vision and Denies eye pain ENT: Denies dizziness Cardiovascular: Cardiovascular: Reports no additional cardiovascular complaints, Denies chest pain, Denies lightheadedness, Denies Loss of Consciousness and Denies dyspnea Respiratory: Respiratory: Reports no additional respiratory complaints and Denies dyspnea Gastrointestinal: Gastrointestinal: Reports no additional gastrointestinal complaints, Denies abdominal pain, Denies melena, Denies hematochezia, Denies change in bowel habits and Denies change in stool character Genitourinary: Genitourinary: Denies hematuria, Denies urinary frequency, Denies dysuria, Reports flank pain (left), Denies urinary incontinence, Denies urinary hesitancy and Denies urinary urgency Musculoskeletal: Musculoskeletal: Reports no additional musculoskeletal complaints, Denies numbness and Denies tingling Neurologic: Denies dizziness, Denies loss of vision, Denies numbness and Denies tingling Psychiatric: Psychiatric: Reports no additional psychiatric complaints Endocrine: Endocrine: Reports no additional endocrine complaints Hematologic/Lymphatic: Hematologic/Lymphatic: Reports no additional hematologic/lymphatic complaints Allergic/Immunologic: Allergic/Immunologic: Reports no additional allergic/immunologic complaints [facility] Past Medical History Attestation statement: The following information was validated with the patient. Source: old records reviewed and nursing notes reviewed Medical History Asthma Breast calcification, right CKD stage 3 due to type 2 diabetes mellitus Diabetes type 2, uncontrolled Diabetic nephropathy associated with type 2 diabetes mellitus Dyslipidemia GERD (gastroesophageal reflux disease) History of CVA (cerebrovascular accident) Hypertension assisted (current) use of insulin Morbid obesity Obesity due to excess calories Peripheral nerve facial nerve paralysis Surgical History History of appendectomy Hx of bilateral cataract extraction Hx of hysterectomy Hx of tubal ligation Family History Family History Father Cancer Mother Diabetes mellitus Social History Social History Household Members: None Housing: Apartment Do you presently have visiting nurse or other home services: Yes Alcohol intake: never Patient Tobacco Use Status: Never used Tobacco Second Hand Smoke Exposure: No Advance Directives: Yes Advance Directives on File: Yes Advance Directives Date on File: 11/26/20 service: No Current occupational status: disabled Current occupation: rt handed Physical Exam ED Vital Signs: Vital Signs - 24 hr 09/06/22 10:10 09/06/22 12:58 09/06/22 15:10 Temperature 97.9 F 97.8 F Pulse Rate 63 64 62 Respiratory Rate 16 18 18 Blood Pressure 126/37 L 180/53 H 187/59 H Pulse Oximetry 96 94 95 Oxygen Delivery Method Room Air Room Air Room Air BMI result Body Mass Index 43.0 Const General: cooperative, no acute distress, alert and awake Nutritional Appearance: well nourished Orientation/consciousness: patient oriented x3 Limitations: no limitations HENMT Head: Yes normal to inspection and Yes atraumatic Ears: hearing grossly normal bilaterally and external ears normal General nose exam: Normal external nose present, no nasal discharge noted and no epistaxis Face and sinus: Yes normal facial exam, No abrasion and No laceration Mouth: Normal oral and palatal mucosa present, no drooling and no muffled voice Eyes General: appearance normal, both eyes and all related structures Periorbital: periorbital findings normal Eyelids: Yes eyelids normal Conjunctivae: conjunctivae normal Pupils: Equal, round and reactive pupils present EOM: EOMs intact bilaterally Neck Neck: Yes normal visual inspection, Yes full ROM and Yes no lymphadenopathy Chest Chest palpation & inspection: normal inspection of the chest Resp Effort & Inspection: normal respiratory effort and able to speak in complete sentences GI Inspection: Yes normal to inspection Other: pain with palpation of the left flank Neuro General: patient oriented x3 and moves all extremities Cranial nerves: Yes Equal, round and reactive pupils present Cognition (Neuro): normal cognition Motor exam (neuro): 5/5 motor strength present throughout Sensory Exam: Normal double simultaneous stimulation for sensation Coordination: [id number] test normal Extrem General: Yes normal to inspection, Yes full ROM and Yes capillary refill normal Psych Appearance: grossly normal Mental Status: mental status grossly normal Affect: normal affect Attitude: cooperative Thought process: Normal thought process present Thought content: Normal thought content present Insight: Good insight present (Psych) Medications Administered Discontinued Medications Generic Name Dose Route Start Last Admin Trade Name Gertrude PRN Reason Stop Dose Admin Cyclobenzaprine HCl 5 mg 09/06/22 15:27 09/06/22 15:44 Cyclobenzaprine Hcl 5 Mg Tablet PO 09/06/22 15:28 Not Given ONCE ONE Ketorolac Tromethamine 15 mg 09/06/22 15:27 09/06/22 15:43 Ketorolac Tromethamine 15 Mg/Ml Vial IM 09/06/22 15:28 15 mg ONCE ONE Administration Medical Decision Making Medical Decision Making [facility] Narrative: Patient is a 71 year old assigned female at with a history of DM presenting to the emergency department today with left sided flank pain. Patient's physical exam showed pain with palpation of the left flank but was otherwise unremarkable. Patient's blood work was unremarkable. Patient's urine showed no acute process. Patient's abdominal CT showed no acute process. I explained my physical exam findings as well as all test results to the patient. I answered all questions asked by the patient. Patient received IM Toradol which she stated helped her symptoms significantly. I stressed the importance of the patient taking her medication as prescribed. I stressed the importance of the patient following up with her primary care provider. I stressed the importance of the patient returning to the emergency department immediately if her symptoms were to worsen or if she were to develop any dizziness, shortness of breath, difficulty breathing, chest pain, blurry vision, loss of vision, nausea, vomiting, abdominal pain, fever, chills, back pain, or any other complaints. Patient verbalized agreement and understanding with this treatment plan and di joce. Differential Diagnosis Differential Diagnoses: The differential diagnosis associated with the presentation includes flank pain Lab Data MDM Lab Attestation statement: I reviewed the patient's lab results. 09/06/22 10:27 09/06/22 10:27 Labs: Lab Results 09/06/22 09/06/22 09/06/22 Range/Units 10:27 10:27 10:34 WBC 6.5 (4.8-10.8) X10*3/uL RBC 3.99 L (4.20-5.50) X10*6/uL Hgb 12.0 (12.0-16.0) g/dl Hct 36.2 L (37.0-47.0) % MCV 90.7 (80.0-98.0) fL MCH 30.1 (27.0-33.0) pg MCHC 33.1 (31.0-35.0) g/dl RDW 11.6 (11.0-16.0) % Plt Count 194 (160-400) X10*3/uL MPV 10.6 (9.4-12.3) fL Immature Gran % (Auto) 0.3 (0.0-0.4) % Neut % (Auto) 64.0 (45-73) % Lymph % (Auto) 22.6 (20-40) % [place] % (Auto) 7.9 (2-11) % Eos % (Auto) 4.7 H (0-4) % Baso % (Auto) 0.5 (0-2) % Lymph # (Auto) 1.5 (1.2-4.9) X10*3/uL [place] # (Auto) 0.5 (0.1-1.2) X10*3/uL Eos # (Auto) 0.3 (0.0-0.4) X10*3/uL Baso # (Auto) 0.0 (0.0-0.2) X10*3/uL Abs Immat Gran (auto) 0.02 (0.00-0.03) X10*3/uL Absolute Neuts (auto) 4.1 (2.0-8.3) x10*3/uL Absolute Nucleated RBC 0.000 (0.0-0.012) X10*3/uL Nucleated RBC % (auto) 0.0 (0.0-0.2) /100WBC Sodium 139 (135-145) mmol/L Potassium 5.1 (3.3-5.1) mmol/L Chloride 103 (96-108) mmol/L Carbon Dioxide 29 (22-29) mmol/L Anion Gap 12 (12-20) BUN 36 H (9-16) mg/dL Creatinine 1.47 H (0.5-1.4) mg/dL Estim Creat Clear Calc 27.5 Estimated GFR 35 Random Glucose 190 H (60-115) mg/dL Calcium 9.4 (8.4-10.2) mg/dL Total Bilirubin 0.6 (0.0-1.0) mg/dL AST 18 (5-31) U/L ALT 16 (0-31) U/L Alkaline Phosphatase 105 (39-117) U/L Total Protein 6.9 (6.5-8.0) g/dL Albumin 4.0 (3.5-5.0) g/dL Urine Color Yellow Urine Appearance Clear Urine pH 7.5 (5.0-9.0) Ur Specific [place] 1.020 (1.005-1.025) Urine Protein 100 (2+) H (Neg-Trace) mg/dL Urine Glucose (UA) 100 H (Negative) mg/dL Urine Ketones Negative (Negative) mg/dL Urine Blood Negative (Negative) Urine Nitrite Negative (Negative) Ur Leukocyte Esterase Negative (Negative) Urine RBC 0-2 (0-2) /HPF Urine WBC 0-5 (0-5) /HPF Ur Squamous Epith Cells 6-10 (0-2) /HPF Urine Bacteria None Seen (None Seen) Hyaline Casts 0-2 (0-2) /LPF Radiology Impression Radiologist Impression: My interpretation is in agreement with the radiologist's impression of this imaging study. EXAMINATION: CT ABDOMEN AND PELVIS WITHOUT CONTRAST? CLINICAL INFORMATION: Flank pain.? COMPARISON: None? TECHNIQUE: Multidetector volumetric imaging was performed from the superior aspect of the liver through the pubic symphysis. Sagittal and coronal reformatted images were obtained on the technologist's workstation.? This CT examination was performed using dose optimization techniques as appropriate, variously including the following: *Automated exposure control *Adjustment of mA and/or kV according to patient size (this includes techniques or standardized protocols for targeted exams where dose is matched to indication/reason for exam; i.e. extremities or head) *Use of iterative reconstruction technique DLP: 644 mGy-cm FINDINGS: LUNG BASES: The visualized lung bases are unremarkable. Coronary artery calcifications.? LIVER, GALLBLADDER, AND BILIARY TREE: The liver is normal in size, shape, and attenuation. No focal hepatic lesion or biliary ductal dilatation is present. The gallbladder is unremarkable with no evidence of radiopaque gallstones, gallbladder wall thickening, or obvious pericholecystic inflammatory changes.? PANCREAS: Unremarkable.? SPLEEN: Unremarkable.? ADRENAL GLANDS: Unremarkable.? KIDNEYS AND URETERS: The kidneys are normal in size, shape, and attenuation. No hydronephrosis, hydroureter, or calculi seen. No perinephric stranding. ? BLADDER: Unremarkable.? GASTROINTESTINAL TRACT: There are scattered diverticula of the colon. There is no diverticulitis. There is no bowel wall thickening /edema. There is no bowel obstruction. There is a moderate to large volume of stool in the colon. The appendix is nonvisualized . There is no inflammatory change of the mesentery. The small bowel loops are unremarkable. The stomach is normal. There is no hiatal hernia.? ABDOMINAL WALL: No significant hernia is appreciated. Small focal area of skin thickening and subcutaneous induration without focal fluid collection. The left anterior abdominal wall about the level the umbilicus. Axial image 43/86 series 3 LYMPH NODES: Normal. VASCULAR: Vascular wall calcifications of aorta and iliac arteries. There is no aneurysm. PELVIC VISCERA: Status post hysterectomy. No adnexal abnormality.? OSSEOUS STRUCTURES: Unremarkable.? CT/CT abdomen pelvis wo IV con IMPRESSION: No acute abnormality CT scan abdomen pelvis. ? Fleischner guidelines were followed. Dictated By: Josué Kim MD Signed By: Electronically signed by Josué Kim MD 09/06/22 1521 Independent Historian Clinical information obtained from an independent historian. History obtained from or confirmed by: Other (patient's daughter) Discharge Plan Discharge Clinical Impression: Flank pain Patient Disposition: Home, Self-Care Instructions: Flank Pain (ED) Additional Instructions: Follow up with your primary care provider. Return to the emergency department immediately if your symptoms worsen or if you develop any dizziness, shortness of breath, difficulty breathing, chest pain, blurry vision, loss of vision, nausea, vomiting, abdominal pain, fever, chills, back pain, or any other complaints. Senthil un seguimiento con jones proveedor de atenci?n primaria. Regrese al departamento de emergencias de inmediato si victor m s?ntomas empeoran o si presenta mareos, falta de aire, dificultad para respirar, dolor de pecho, visi?n borrosa, p?rdida de la visi?n, n?useas, v?mitos, dolor abdominal, fiebre, escalofr?os, do elton de espalda o cualquier otras quejas. Prescriptions: New cyclobenzaprine 5 mg tablet 5 mg PO TID PRN (Reason: muscle spasm) 7 Days Qty: 21 0RF No Action cholecalciferol (vitamin D3) 50 mcg (2,000 unit) capsule 50 mcg PO DAILY Qty: 90 1RF insulin aspart U-100 [Novolog FlexPen U-100 Insulin] 100 unit/mL (3 mL) insulin pen 18 - 20 unit subcut TID 90 Days Qty: 45 2RF atorvastatin 40 mg tablet 40 mg PO BEDTIME Qty: 90 0RF Rx Instructions: SEND FUTURE REFILLS TO PCP (DME) pen needle, diabetic [BD Kelly 2nd Gen Pen Needle] 32 gauge x 5/32 needle See Rx Instructions .MEDSUPPLY Qty: 400 4RF Rx Instructions: 5 times a day furosemide [Lasix] 20 mg tablet 20 mg PO DAILY Qty: 7 0RF acetaminophen [Tylenol Extra Strength] 500 mg tablet 1,000 mg PO QID PRN (Reason: fever or pain) Qty: 14 0RF oxycodone 5 mg tablet 5 mg PO Q6H PRN (Reason: pain) Qty: 14 0RF lidocaine HCl [Aspercreme (lidocaine HCl)] 4 % cream 1 appl topical BID PRN (Reason: pain) Qty: 120 0RF hydralazine 25 mg tablet 25 mg PO BID Rx Instructions: has not started multivitamin Tablet 1 tab PO DAILY ascorbic acid (vitamin C) [Vitamin C] 250 mg Tablet 250 mg PO DAILY metoprolol tartrate 25 mg tablet 25 mg PO BID aspirin 81 mg tablet,delayed release (DR/EC) 81 mg PO DAILY Rybelsus 3 mg tablet 3 mg PO DAILY 30 Days Qty: 30 0RF Rybelsus 7 mg tablet 7 mg PO DAILY 30 Days Qty: 30 2RF Rx Instructions: Take on an empty stomach with water 30 minutes before meals or other medications in the morning. (DME) FreeStyle Lite Strips Strip See Rx Instructions .ROUTE .MEDSUPPLY Qty: 100 11RF Rx Instructions: As directed three times a day (DME) lancets [TRUEplus Lancets] 33 gauge misc See Rx Instructions .ROUTE .MEDSUPPLY Qty: 100 11RF Rx Instructions: As directed 3x/day gabapentin 300 mg capsule 300 mg PO BEDTIME Qty: 90 5RF insulin glargine 100 unit/mL (3 mL) insulin pen 22 unit subcut BEDTIME 90 Days Qty: 30 1RF Referrals: Ventura Shi MD [Primary Care Provider] - Interventions: ED Discharge Assessment Last Done: 09/06/22 15:57 Discharge Date/Time: 09/06/22 15:58 Print Language: Bengali
[2022-09-06 12:58] VITALS: BP 180/53; PULSE 64; RESP 18; TEMP 36.6; O2SAT 94
[2022-09-06 15:10] VITALS: BP 187/59; PULSE 62; RESP 18; O2SAT 95
[2022-09-06] MEDS: Ketorolac Tromethamine 15 MG/ML VIAL IM (15:43)
== END 2022-09-06 15:58 | disposition home or self-care (01) ==
PROVIDERS: Emergency Provider Emergency Medicine; PCP Internal Medicine
DX: R10.9 Unspecified abdominal pain (principal); E11.22 Type 2 diabetes mellitus with diabetic chronic kidney disease; I12.9 Hypertensive chronic kidney disease with stage 1 through stage 4 chronic kidney disease, or unspecified chronic kidney disease; N18.30 Chronic kidney disease, stage 3 unspecified; E78.5 Hyperlipidemia, unspecified; E66.9 Obesity, unspecified; Z68.41 Body mass index [BMI] 40.0-44.9, adult; Z86.73 Personal history of transient ischemic attack (TIA), and cerebral infarction without residual deficits; Z79.82 Long term (current) use of aspirin; Z79.899 Other long term (current) drug therapy; Z79.4 Long term (current) use of insulin; Z79.02 Long term (current) use of antithrombotics/antiplatelets
CPT/HCPCS: 36415; 74176; 80053; 81001; 85025; 96372; 99284; J1885

== ENCOUNTER 2022-10-13 14:44 | Outpatient (REF) | payer OTHER, SELFPAY ==
[2022-10-13 16:55] LABS: TSH reflex Free T4 1.49 uIU/mL (0.32-4.0)
== END 2022-10-13 14:45 | disposition home or self-care (01) ==
LOC: HO.LAB 14:44
PROVIDERS: PCP Internal Medicine; Visit Provider Internal Medicine
DX: K59.00 Constipation, unspecified (principal)
CPT/HCPCS: 36415; 84443

== ENCOUNTER 2022-10-25 08:58 | Emergency (ER) | payer OTHER, SELFPAY ==
--- NOTE | ~2022-10-25 | CT_ITS ---
EXAMINATION: CT CERVICAL SPINE WITHOUT CONTRAST CLINICAL INFORMATION: Acute traumatic neck pain. COMPARISON: None available. TECHNIQUE: Multiple axial images of the cervical spine were obtained without the administration of intravenous contrast. Coronal and sagittal reformatted images were obtained. This CT examination was performed using dose optimization techniques as appropriate, variously including the following: *Automated exposure control *Adjustment of mA and/or kV according to patient size (this includes techniques or standardized protocols for targeted exams where dose is matched to indication/reason for exam; i.e. extremities or head) *Use of iterative reconstruction technique DLP: 543.17 mGy-cm FINDINGS: There is straightening of the normal cervical lordosis with normal spinal alignment. Moderate degenerative disc disease is seen from C4-C5 to C6-C7 with disc space narrowing and prominent marginal osteophyte formation most pronounced at C4-C5. An oblique linear lucency is seen in the sagittal projection at C4 (image 30, series 16). T7 shows a low-attenuation focus with narrow zone of transition laterally. Mild superjacent superior endplate compression deformities seen (image 29, series 15; image 20, series 16). The odontoid process is intact with mild articulating degenerative changes. The neural foramina are patent. The facet joints are unremarkable. The spinous processes are unremarkable. The cervical soft tissues are unremarkable. There is no lymphadenopathy. The thyroid gland is unremarkable. The lung apices are unremarkable CT/CT cervical spine wo IV con IMPRESSION: 1. Straightening of the normal cervical lordosis may be secondary to positioning and/or muscle spasm. 2. Oblique linear lucency posteriorly and C4 appears to represent a nutrient vessel. Acute fracture would be less likely. 3. Low-attenuation focus on the left and C7 demonstrates benign features likely representing a hemangioma or benign cyst. The superjacent mild superior plate compression deformity is of indeterminate age, but overall does not demonstrate acute features. Given the patient's history of trauma, if there is continued concern for acute injury, MRI should be considered to better assess acuity.
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
[2022-10-25 09:09] VITALS: BP 136/50; BP 162/50; PULSE 57; PULSE 58; RESP 16; TEMP 36.4; O2SAT 96; O2SAT 97; BMI 47.2
[2022-10-25 09:21] VITALS: BP 162/50; PULSE 57; RESP 16; TEMP 36.3; O2SAT 97
[2022-10-25] MEDS: Acetaminophen 325 MG TABLET 975 MG PO (09:26)
[2022-10-25 10:12] VITALS: BP 168/57; PULSE 58; RESP 14; O2SAT 95
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
== END 2022-10-25 10:44 | disposition home or self-care (01) ==
PROVIDERS: Emergency Provider Emergency Medicine
DX: S19.9XXA Unspecified injury of neck, initial encounter (principal); S00.93XA Contusion of unspecified part of head, initial encounter; M54.2 Cervicalgia; R51.9 Headache, unspecified; W01.10XA Fall on same level from slipping, tripping and stumbling with subsequent striking against unspecified object, initial encounter; Y93.9 Activity, unspecified; Y92.811 Bus as the place of occurrence of the external cause; Y99.9 Unspecified external cause status
CPT/HCPCS: 70450; 72125; 99284

== ENCOUNTER 2022-10-25 10:50 | Outpatient (REF) | payer OTHER, SELFPAY ==
[2022-10-25 12:39] LABS: Anion Gap 13 (12-20); Blood Urea Nitrogen 41 mg/dL (9-16); Calcium 9.4 mg/dL (8.4-10.2); Carbon Dioxide 28 mmol/L (22-29); Chloride 107 mmol/L (96-108); Estimated Glomerular Filt Rate 34; Potassium 5.4 mmol/L (3.3-5.1); Sodium 143 mmol/L (135-145)
== END 2022-10-25 10:51 | disposition home or self-care (01) ==
LOC: HO.LAB 10:50
PROVIDERS: PCP Internal Medicine; Visit Provider Internal Medicine Nephrology
DX: I12.9 Hypertensive chronic kidney disease with stage 1 through stage 4 chronic kidney disease, or unspecified chronic kidney disease (principal); E11.22 Type 2 diabetes mellitus with diabetic chronic kidney disease; E11.21 Type 2 diabetes mellitus with diabetic nephropathy; N18.31 Chronic kidney disease, stage 3a
CPT/HCPCS: 36415; 80051; 82310; 82565; 84520

== ENCOUNTER 2022-11-08 08:23 | Emergency (ER) | payer OTHER, SELFPAY ==
--- NOTE | ~2022-11-08 | XR_ITS ---
EXAMINATION: XR FOOT, RIGHT CLINICAL INFORMATION: Fifth toe infection. Evaluate for osteomyelitis. COMPARISON: Right ankle radiographs dated 04/12/2016. TECHNIQUE: AP, lateral, and oblique views of the right foot. FINDINGS: No periosteal reaction or cortical erosion in the region of the 5th metatarsophalangeal joint at the overlying skin marker. No radiopaque foreign body. Mild joint space narrowing with tiny marginal osteophyte scattered throughout the metacarpophalangeal and interphalangeal joints. No osseous erosion. No acute fracture or dislocation. Prominent atherosclerotic calcifications. Plantar and dorsal calcaneal enthesophytes. XR/XR foot RT 2V IMPRESSION: 1. No evidence of osteomyelitis. Early osteomyelitis may be occult on plain radiographs and if there is persistent clinical concern, bone scan or MRI without and with contrast could help further evaluate. 2. Mild degenerative arthritis scattered throughout the metacarpophalangeal and interphalangeal joints.
[2022-11-08 08:34] VITALS: BP 145/58; PULSE 56; RESP 16; TEMP 36; O2SAT 94; BMI 43.7
[2022-11-08 08:40] VITALS: BP 160/57; PULSE 55; RESP 17
--- NOTE | 2022-11-08 08:53 | ED.GENADULT ---
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 Patient also been having drainage from both eyes with redness and sticking of the eyelids bilaterally. No sick contacts, no recent travel. Related Data Home Medications Medication Instructions Recorded Confirmed metoprolol tartrate 25 mg tablet 25 mg PO BID 06/16/20 06/21/22 aspirin 81 mg tablet,delayed 81 mg PO DAILY 09/19/20 06/21/22 release ascorbic acid (vitamin C) 250 mg 250 mg PO DAILY 11/26/20 06/21/22 tablet (Vitamin C) hydralazine 25 mg tablet 25 mg PO BID 11/26/20 06/21/22 multivitamin 1 tab PO DAILY 11/26/20 06/21/22 Previous Rx's Medication Instructions Recorded furosemide 20 mg tablet (Lasix) 20 mg PO DAILY #7 tabs 12/26/20 cholecalciferol (vitamin D3) 50 50 mcg PO DAILY #90 caps 01/27/21 mcg (2,000 unit) capsule acetaminophen 500 mg tablet 1,000 mg PO QID PRN fever or pain 04/15/21 (Tylenol Extra Strength) #14 tabs lidocaine HCl 4 % topical cream 1 appl topical BID PRN pain #120 04/15/21 (Aspercreme (lidocaine HCl)) grams oxycodone 5 mg tablet 5 mg PO Q6H PRN pain #14 tabs 04/15/21 blood sugar diagnostic (FreeStyle #100 ea 08/21/21 Lite Strips) gabapentin 300 mg capsule 300 mg PO BEDTIME #90 caps 08/21/21 insulin glargine 100 unit/mL (3 22 unit (0.22 mL) subcut BEDTIME 08/21/21 mL) subcutaneous pen 90 days #30 mL lancets 33 gauge (TRUEplus Lancets) #100 ea 08/21/21 semaglutide 3 mg tablet (Rybelsus) 3 mg PO DAILY 30 days #30 tabs 08/21/21 semaglutide 7 mg tablet (Rybelsus) 7 mg PO DAILY 30 days #30 tabs 08/21/21 Novolog FlexPen U-100 Insulin 100 18 - 20 unit (0.18 - 0.2 mL) 10/28/21 unit/mL (3 mL) subcutaneous subcut TID 90 days #45 mL (insulin aspart U-100) atorvastatin 40 mg tablet 40 mg PO BEDTIME #90 tabs 12/15/21 pen needle, diabetic 32 gauge x #400 ea 02/17/22 (BD Kelly 2nd Gen Pen Needle) cyclobenzaprine 5 mg tablet 5 mg PO TID PRN muscle spasm 7 09/06/22 days #21 tabs ciprofloxacin HCl 0.3 % eye drops See Rx Instructions ophthalmic 11/08/22 (eye) .COMPLEX #10 mL doxycycline monohydrate 100 mg 100 mg PO BID #20 tabs 11/08/22 tablet Allergies Allergy/AdvReac Type Severity Reaction Status Date / Time metformin [From GLUCOPHAGE] AdvReac Unknown DIARRHEA Verified 06/21/22 15:11 Review of Systems Review of Systems: All other systems are reviewed and are negative Constitutional: Reports as per HPI and Reports no additional constitutional complaints Eyes: Reports as per HPI and Reports no additional eye complaints Reports system reviewed and no additional complaints, except as documented Cardiovascular: Reports as per HPI and Reports no additional cardiovascular complaints Respiratory: Reports as per HPI and Reports no additional respiratory complaints Gastrointestinal: Reports as per HPI and Reports no additional gastrointestinal complaints Genitourinary: Reports no additional female genitourinary complaints Musculoskeletal: Reports no additional musculoskeletal complaints Skin/Breast: Reports system reviewed and no additional complaints, except as docu Psychiatric: Reports no additional psychiatric complaints Endocrine: Reports no additional endocrine complaints Hematologic/Lymphatic: Reports no additional hematologic/lymphatic complaints Allergic/Immunologic: Reports no additional allergic/immunologic complaints Reports system reviewed and no additional complaints, except as documented and Reports Abnormal speech present [facility] Past Medical History Medical History Asthma Breast calcification, right CKD stage 3 due to type 2 diabetes mellitus Diabetes type 2, uncontrolled Diabetic nephropathy associated with type 2 diabetes mellitus Dyslipidemia GERD (gastroesophageal reflux disease) History of CVA (cerebrovascular accident) 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 Morbid obesity Obesity due to excess calories Peripheral nerve facial nerve paralysis Surgical History History of appendectomy Hx of bilateral cataract extraction Hx of hysterectomy Hx of tubal ligation Family History Family History Father Cancer Mother Diabetes mellitus Social History Social History Household Members: None Housing: Apartment Do you presently have visiting nurse or other home services: Yes Alcohol intake: never Patient Tobacco Use Status: Never used Tobacco Smoked in Last 30 Days: No Second Hand Smoke Exposure: No Use of substances other than those prescribed or required for medical reasons: No Advance Directives: Yes Advance Directives on File: Yes Advance Directives Date on File: 11/26/20 service: No Current occupational status: disabled Current occupation: rt handed Physical Exam ED Vital Signs: Vital Signs - 24 hr 11/08/22 08:34 11/08/22 08:40 Temperature 96.8 F Pulse Rate 56 55 Respiratory Rate 16 17 Blood Pressure 145/58 H 160/57 H Pulse Oximetry 94 Oxygen Delivery Method Room Air BMI result Body Mass Index 43.7 Vital signs have been reviewed as appeared to be correct. Blood pressure normal. Heart rate normal. Respiration rate normal. Temperature normal. Oxygen saturation normal. Appearance: Alert. Oriented X3. No acute distress. Head: Normal external exam. Normocephalic. Atraumatic. No Veras signs noted. No raccoon eyes noted Eyes: PERRLA. EOMI. Conjunctiva and sclera injected, no discharge. Eyelids normal. ENT: TM's Normal. Pharynx normal. Uvula midline. Moist mucous membranes. No trismus noted. No drooling noted. No muffled voice noted. Neck: Normal inspection. Neck supple. FROM. No adenopathy. Thyroid Normal. No meningeal signs. No neck mass noted. CVS: Normal heart rate and rhythm. Heart sound normal. No murmurs noted. Pulses normal throughout. Respiratory: No respiratory distress. Painless inspiration. Breath sounds normal. No wheezes/rales/rhonchi noted. Chest nontender. No accessory muscle usage noted or decreased air movement noted. Abdomen: Soft and nontender. Bowel sounds normal in all 4 quadrants. No distention noted. No organomegaly noted. No visible injury noted. Back: No CVA tenderness. Full range of motion noted. Skin: Skin warm and dry. Normal skin color. Normal skin turgor. No rashes/lesions/lacerations noted. Extremities: 1 x 1 cm area of redness, hotness at the base of the right 5th toe on the lateral aspect, no fluctuation, no drainage. Neuro: Oriented X 3. Cranial nerve exam: II-XII are grossly intact No motor deficit. No sensory deficit. Reflexes normal. Medical Decision Making Medical Decision Making [facility] Narrative: Left foot cellulitis, bilateral conjunctivitis will start the patient on doxycycline and Cipro 0.3% eyedrops, patient do not meet severe sepsis or septic shock criteria. Differential Diagnosis Differential Diagnoses: The differential diagnosis associated with the presentation includes (Cellulitis, osteomyelitis, sepsis, septic shock, conjunctivitis.) Lab Data [facility] Lab Attestation statement: I reviewed the patient's lab results. 11/08/22 09:18 11/08/22 09:18 Labs: Lab Results 11/08/22 11/08/22 11/08/22 Range/Units 09:18 09:18 09:18 WBC 8.1 (4.8-10.8) X10*3/uL RBC 3.66 L (4.20-5.50) X10*6/uL Hgb 10.8 L (12.0-16.0) g/dl Hct 33.7 L (37.0-47.0) % MCV 92.1 (80.0-98.0) fL MCH 29.5 (27.0-33.0) pg MCHC 32.0 (31.0-35.0) g/dl RDW 12.1 (11.0-16.0) % Plt Count 197 (160-400) X10*3/uL MPV 10.1 (9.4-12.3) fL Immature Gran % (Auto) 0.2 (0.0-0.4) % Neut % (Auto) 69.5 (45-73) % Lymph % (Auto) 18.3 L (20-40) % [place] % (Auto) 7.4 (2-11) % Eos % (Auto) 4.2 H (0-4) % Baso % (Auto) 0.4 (0-2) % Lymph # (Auto) 1.5 (1.2-4.9) X10*3/uL [place] # (Auto) 0.6 (0.1-1.2) X10*3/uL Eos # (Auto) 0.3 (0.0-0.4) X10*3/uL Baso # (Auto) 0.0 (0.0-0.2) X10*3/uL Abs Immat Gran (auto) 0.02 (0.00-0.03) X10*3/uL Absolute Neuts (auto) 5.6 (2.0-8.3) x10*3/uL Absolute Nucleated RBC 0.000 (0.0-0.012) X10*3/uL Nucleated RBC % (auto) 0.0 (0.0-0.2) /100WBC Sodium 141 (135-145) mmol/L Potassium 5.1 (3.3-5.1) mmol/L Chloride 104 (96-108) mmol/L Carbon Dioxide 30 H (22-29) mmol/L Anion Gap 12 (12-20) BUN 33 H (9-16) mg/dL Creatinine 1.50 H (0.5-1.4) mg/dL Estim Creat Clear Calc 26.8 Estimated GFR 34 Random Glucose 109 (60-115) mg/dL Lactic Acid 0.6 (0.5-2.0) mmol/L Calcium 8.9 (8.4-10.2) mg/dL Urine Color Urine Appearance Urine pH (5.0-9.0) Ur Specific [place] (1.005-1.025) Urine Protein (Neg-Trace) mg/dL Urine Glucose (UA) (Negative) mg/dL Urine Ketones (Negative) mg/dL Urine Blood (Negative) Urine Nitrite (Negative) Ur Leukocyte Esterase (Negative) 11/08/22 Range/Units 09:41 WBC (4.8-10.8) X10*3/uL RBC (4.20-5.50) X10*6/uL Hgb (12.0-16.0) g/dl Hct (37.0-47.0) % MCV (80.0-98.0) fL MCH (27.0-33.0) pg MCHC (31.0-35.0) g/dl RDW (11.0-16.0) % Plt Count (160-400) X10*3/uL MPV (9.4-12.3) fL Immature Gran % (Auto) (0.0-0.4) % Neut % (Auto) (45-73) % Lymph % (Auto) (20-40) % [place] % (Auto) (2-11) % Eos % (Auto) (0-4) % Baso % (Auto) (0-2) % Lymph # (Auto) (1.2-4.9) X10*3/uL [place] # (Auto) (0.1-1.2) X10*3/uL Eos # (Auto) (0.0-0.4) X10*3/uL Baso # (Auto) (0.0-0.2) X10*3/uL Abs Immat Gran (auto) (0.00-0.03) X10*3/uL Absolute Neuts (auto) (2.0-8.3) x10*3/uL Absolute Nucleated RBC (0.0-0.012) X10*3/uL Nucleated RBC % (auto) (0.0-0.2) /100WBC Sodium (135-145) mmol/L Potassium (3.3-5.1) mmol/L Chloride (96-108) mmol/L Carbon Dioxide (22-29) mmol/L Anion Gap (12-20) BUN (9-16) mg/dL Creatinine (0.5-1.4) mg/dL Estim Creat Clear Calc Estimated GFR Random Glucose (60-115) mg/dL Lactic Acid (0.5-2.0) mmol/L Calcium (8.4-10.2) mg/dL Urine Color Yellow Urine Appearance Clear Urine pH 7.0 (5.0-9.0) Ur Specific [place] 1.010 (1.005-1.025) Urine Protein Trace (Neg-Trace) mg/dL Urine Glucose (UA) Negative (Negative) mg/dL Urine Ketones Negative (Negative) mg/dL Urine Blood Negative (Negative) Urine Nitrite Negative (Negative) Ur Leukocyte Esterase Negative (Negative) Independent Interpretation I performed an independent interpretation of an: Plain X-Ray (Left foot: No osteomyelitis.) Radiology Impression Discussion of test interpretation with radiology: I have reviewed the radiologist's reading. Discharge Plan Discharge Clinical Impression: Cellulitis of left foot, Conjunctivitis Patient Disposition: Home, Self-Care Instructions: Cellulitis (ED), Conjunctivitis (ED) Prescriptions: New doxycycline monohydrate 100 mg tablet 100 mg PO BID Qty: 20 0RF ciprofloxacin HCl 0.3 % drops See Rx Instructions .ROUTE .COMPLEX Qty: 10 0RF Rx Instructions: put 1-2 drps in affected eye(s) every 2hr up to 8 times/day x2days; then 4 times/day x5days No Action cholecalciferol (vitamin D3) 50 mcg (2,000 unit) capsule 50 mcg PO DAILY Qty: 90 1RF insulin aspart U-100 [Novolog FlexPen U-100 Insulin] 100 unit/mL (3 mL) insulin pen 18 - 20 unit subcut TID 90 Days Qty: 45 2RF atorvastatin 40 mg tablet 40 mg PO BEDTIME Qty: 90 0RF Rx Instructions: SEND FUTURE REFILLS TO PCP (DME) pen needle, diabetic [BD Kelly 2nd Gen Pen Needle] 32 gauge x 5/32 needle See Rx Instructions .MEDSUPPLY Qty: 400 4RF Rx Instructions: 5 times a day furosemide [Lasix] 20 mg tablet 20 mg PO DAILY Qty: 7 0RF acetaminophen [Tylenol Extra Strength] 500 mg tablet 1,000 mg PO QID PRN (Reason: fever or pain) Qty: 14 0RF oxycodone 5 mg tablet 5 mg PO Q6H PRN (Reason: pain) Qty: 14 0RF lidocaine HCl [Aspercreme (lidocaine HCl)] 4 % cream 1 appl topical BID PRN (Reason: pain) Qty: 120 0RF hydralazine 25 mg tablet 25 mg PO BID Rx Instructions: has not started multivitamin Tablet 1 tab PO DAILY ascorbic acid (vitamin C) [Vitamin C] 250 mg Tablet 250 mg PO DAILY cyclobenzaprine 5 mg tablet 5 mg PO TID PRN (Reason: muscle spasm) 7 Days Qty: 21 0RF metoprolol tartrate 25 mg tablet 25 mg PO BID aspirin 81 mg tablet,delayed release (DR/EC) 81 mg PO DAILY Rybelsus 3 mg tablet 3 mg PO DAILY 30 Days Qty: 30 0RF Rybelsus 7 mg tablet 7 mg PO DAILY 30 Days Qty: 30 2RF Rx Instructions: Take on an empty stomach with water 30 minutes before meals or other medications in the morning. (DME) FreeStyle Lite Strips Strip See Rx Instructions .ROUTE .MEDSUPPLY Qty: 100 11RF Rx Instructions: As directed three times a day (DME) lancets [TRUEplus Lancets] 33 gauge misc See Rx Instructions .ROUTE .MEDSUPPLY Qty: 100 11RF Rx Instructions: As directed 3x/day gabapentin 300 mg capsule 300 mg PO BEDTIME Qty: 90 5RF insulin glargine 100 unit/mL (3 mL) insulin pen 22 unit subcut BEDTIME 90 Days Qty: 30 1RF Referrals: Ventura Shi MD [Primary Care Provider] -
--- NOTE | 2022-11-08 09:10 | PC.NURSE ---
Pt A&Ox4, reports getting a pedicure 5 days ago and developing redness and swelling after a small laceration to right outer egdge of foot. Swelling noted with small scab. Pt states pain is tolerable if not touched 3/10. Pt ambulated to x-Ray with cane, steady gait.
[2022-11-08 09:21] LABS: MANUAL DIFF FLAG NO
[2022-11-08 09:23] LABS: Basophils Percent Auto 0.4 % (0-2); Eosinophils Absolute Auto 0.3 X10*3/uL (0.0-0.4); Eosinophils Percent Auto 4.2 % (0-4); Hematocrit 33.7 % (37.0-47.0); Hemoglobin 10.8 g/dl (12.0-16.0); Imm Gran Abs Auto 0.02 X10*3/uL (0.00-0.03); Imm Gran Pct Auto 0.2 % (0.0-0.4); Lymphocytes Absolute Auto 1.5 X10*3/uL (1.2-4.9); Lymphocytes Percent Auto 18.3 % (20-40); Mean Corpuscular Hemoglobin 29.5 pg (27.0-33.0); Mean Corpuscular Volume 92.1 fL (80.0-98.0); Mean Platelet Volume 10.1 fL (9.4-12.3); Monocytes Absolute Auto 0.6 X10*3/uL (0.1-1.2); Monocytes Percent Auto 7.4 % (2-11); Neutrophils Absolute Auto 5.6 x10*3/uL (2.0-8.3); Neutrophils Percent Auto 69.5 % (45-73); Platelet Count 197 X10*3/uL (160-400); Red Blood Count 3.66 X10*6/uL (4.20-5.50); Red Cell Distribution Width 12.1 % (11.0-16.0); White Blood Count 8.1 X10*3/uL (4.8-10.8)
[2022-11-08 09:35] LABS: Lactic Acid 0.6 mmol/L (0.5-2.0)
[2022-11-08 09:38] LABS: Anion Gap 12 (12-20); Blood Urea Nitrogen 33 mg/dL (9-16); Calcium 8.9 mg/dL (8.4-10.2); Carbon Dioxide 30 mmol/L (22-29); Chloride 104 mmol/L (96-108); Creatinine Clr Calc Pharmacy 26.8; Estimated Glomerular Filt Rate 34; Glucose Random 109 mg/dL (60-115); Potassium 5.1 mmol/L (3.3-5.1); Sodium 141 mmol/L (135-145)
[2022-11-08 09:52] LABS: Appearance Urine Clear; Color Urine Yellow; Glucose Urine UA Negative (Negative); Leukocyte Esterase Urine Negative (Negative); Nitrite Urine Negative (Negative); Urine Blood Negative (Negative); Urine Ketones Negative (Negative); Urine Protein Trace mg/dL (Neg-Trace)
== END 2022-11-08 10:59 | disposition home or self-care (01) ==
PROVIDERS: Emergency Provider Emergency Medicine; PCP Internal Medicine
DX: L03.115 Cellulitis of right lower limb (principal); H10.9 Unspecified conjunctivitis; E11.22 Type 2 diabetes mellitus with diabetic chronic kidney disease; I12.9 Hypertensive chronic kidney disease with stage 1 through stage 4 chronic kidney disease, or unspecified chronic kidney disease; N18.30 Chronic kidney disease, stage 3 unspecified; Z79.82 Long term (current) use of aspirin; Z79.899 Other long term (current) drug therapy; Z79.4 Long term (current) use of insulin
CPT/HCPCS: 36415; 73620; 80048; 81003; 83605; 85025; 87040; 99283; 99284

== ENCOUNTER 2022-12-15 14:17 | Outpatient (REF) | payer OTHER, SELFPAY ==
--- NOTE | ~2022-12-15 | US_ITS ---
EXAMINATION: US VENOUS ULTRASOUND WITH DOPPLER LOWER EXTREMITY, LEFT CLINICAL INFORMATION: Swelling COMPARISON: Previous exam was recent May 2018 TECHNIQUE: Ultrasound of the deep veins is performed from the hip to the calf with compression sonography and color and pulse Doppler assessment. Spectral analysis with color-flow imaging is performed. FINDINGS: There is normal venous compression and respiratory variation and augmented flow. The visualized common femoral vein, superficial femoral vein, profunda femoral vein, popliteal vein, and the trifurcation region shows no evidence of deep venous thrombosis. There is a small Sharp's cyst measuring 1.6 x 3.2 x 1.1 cm. US/US venous duplex LE LT IMPRESSION: No DVT demonstrated in the left lower extremity. Small Sharp's cyst.
== END 2022-12-15 14:18 | disposition home or self-care (01) ==
LOC: HO.US 14:17
PROVIDERS: PCP Internal Medicine; Visit Provider Emergency Medicine
DX: M79.605 Pain in left leg (principal)
CPT/HCPCS: 93971

== ENCOUNTER 2023-01-04 13:52 | Outpatient (REF) | payer OTHER, SELFPAY ==
--- NOTE | ~2023-01-04 | XR_ITS ---
EXAMINATION: XR CHEST CLINICAL INFORMATION: SOB on exertion. COMPARISON: None available. TECHNIQUE: 2 views of the chest were obtained. FINDINGS: No significant abnormality is noted involving the heart, lungs, mediastinum, bony thorax or soft tissues. XR/XR chest 2V IMPRESSION: Unremarkable chest examination.
== END 2023-01-04 13:53 | disposition home or self-care (01) ==
LOC: HO.HHCX 13:52
PROVIDERS: Visit Provider Emergency Medicine
DX: R06.00 Dyspnea, unspecified (principal)
CPT/HCPCS: 71046

== ENCOUNTER 2023-03-08 08:27 | Outpatient (REF) | payer OTHER, SELFPAY ==
[2023-03-08 11:29] LABS: Anion Gap 11 (12-20); Blood Urea Nitrogen 38 mg/dL (9-16); Calcium 9.4 mg/dL (8.4-10.2); Carbon Dioxide 29 mmol/L (22-29); Chloride 109 mmol/L (96-108); Estimated Glomerular Filt Rate 30; Potassium 4.8 mmol/L (3.3-5.1); Sodium 144 mmol/L (135-145)
[2023-03-08 11:34] LABS: Vitamin D 25-OH Total 21.9 ng/mL (>30)
[2023-03-10 09:14] LABS: Calcium (PTHI) 9.3 mg/dL (8.6-10.4); PTHI 100 pg/mL (16-77)
== END 2023-03-08 08:28 | disposition home or self-care (01) ==
LOC: HO.10HDL 08:27
PROVIDERS: Visit Provider Internal Medicine Nephrology
DX: I12.9 Hypertensive chronic kidney disease with stage 1 through stage 4 chronic kidney disease, or unspecified chronic kidney disease (principal); E11.22 Type 2 diabetes mellitus with diabetic chronic kidney disease; N18.31 Chronic kidney disease, stage 3a; E11.21 Type 2 diabetes mellitus with diabetic nephropathy; I83.12 Varicose veins of left lower extremity with inflammation
CPT/HCPCS: 36415; 80051; 82306; 82310; 82565; 83970; 84520; 99202

== ENCOUNTER 2023-03-08 13:21 | Outpatient (AMB) | payer OTHER, SELFPAY ==
--- NOTE | 2023-03-08 13:23 | MHC.OFFVIS ---
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 Patient stated she is unable to walk a whole block but not due to her leg, she has SOB. Stepdown Nurse Required: Yes Stepdown Nurse Name: Terra Cooper MICHAELRoby Allergies metformin [From GLUCOPHAGE] Adverse Reaction (Unknown, Verified 03/08/23 13:30) DIARRHEA HPI CLIENT RELATIONS ASSOCIATE/C Left LE pain/swelling HPI Details 72-year-old female patient presents for painful varicose veins. Complaints include pain over varicosities, swelling of lower extremities, cramping, fatigue, and heaviness of the lower extremities. It has been affecting there daily activities including walking. It is noted more so in left leg. Patient denies any previous venous surgery or injections. Patient denies any history of DVT/ PE. Patient denies any history of phlebitis. Trial of compression includes - [id number] They now present for vascular evaluation regarding their varicose veins. 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 Morbid obesity Obesity due to excess calories Peripheral nerve facial nerve paralysis Surgical History History of appendectomy Hx of bilateral cataract extraction Hx of hysterectomy Hx of tubal ligation Family History Father Cancer Mother Diabetes mellitus Social History Household Members: None Housing: Apartment Do you presently have visiting nurse or other home services: Yes Alcohol intake: never Patient Tobacco Use Status: Never used Tobacco Second Hand Smoke Exposure: No Advance Directives Date on File: 11/26/20 service: No Current occupational status: disabled Current occupation: rt handed Female Reproductive History Menstrual Age of Menarche: 12 Review of Systems Const Reports as per HPI ENT Reports no additional complaints Card Denies chest pain, Denies chest pain at rest and Denies chest pain with activity Resp Denies chest congestion and Denies cough GI Reports no additional complaints Musc Details: pain over varicosities, aching of lower extremities, swelling, cramping, heaviness and tiredness, itching Denies abnormal gait Skin/Breast Reports pruritus and Denies wounds Neuro Reports no additional complaints and Denies abnormal gait Psych Denies no additional complaints Physical Exam Const General: cooperative, healthy appearing and comfortable Orientation/consciousness: oriented to person, oriented to place and oriented to time Neck Carotids: no bruits Chest Chest palpation & inspection: normal inspection of the chest and normal palpation of entire chest wall Resp Effort & Inspection: normal respiratory effort and able to speak in complete sentences Cardio Rate: regular rate Heart sounds: S1 normal heart sound present and S2 normal heart sound present Peripheral pulses: Peripheral pulses 2+ throughout GI Inspection: Yes normal to inspection Skin Other: +2 edema, tense at calf CEAP Classification C4 - skin color changes Ep - Etiology Primary As - superficial veins P - reflux General skin exam: dry skin Neuro General: oriented to person, oriented to place and oriented to time Extrem Right lower extremity: full ROM, normal capillary refill and edema Left lower extremity: full ROM, normal capillary refill and edema Psych Mental Status: mental status grossly normal Assessment & Plan Assessment & Plan (1) Varicose veins of left lower extremity with inflammation: Code(s): I83.12 - Varicose veins of left lower extremity with inflammation Plan: In short, the patient has evidence of venous insufficiency. I have discussed the pathophysiology with the patient. In addition I have provided informational material regarding venous disease to the patient. We have discussed conservative measures including compression, elevation, and exercise. I have also provided a handout regarding appropriate use of compression stockings and where to purchase good compression stockings as well. I have taken the liberty of ordering venous insufficiency testing with the patient. They will follow up with me after testing. The patient had an opportunity to ask questions regarding the treatment plan. All questions were answered. Imaging studies, laboratory studies and physical exam results were discussed and reviewed in detail. No major barriers to understanding were identified. The patient expressed understanding and agreement with the above treatment plan. The patient is aware they should contact our office by phone for worsening of the current condition or the appearance of new symptoms. Thank you for allowing me to participate in the vascular care of this patient. If you have any questions or concerns regarding the treatment for the above condition please do not hesitate to contact me. The office telephone contact is [phone]. This note is constructed using voice recognition software. While every effort has been made to ensure accuracy, theology teacher errors may have been included. Thank you for allowing me to participate in the care of your patient. Yours sincerely, Todd Perry MD, FACS, R.P.V.I. Orders: Orders US venous duplex LE BI 1 Week I83.12 - Varicose veins of left lower extremity with inflammation Coding Level of Care Code Est Pt Level 4 (79150) Diagnoses Varicose veins of left lower extremity with inflammation I83.12
== END 2023-03-08 13:53 | disposition home or self-care (01) ==
PROVIDERS: PCP Internal Medicine; Visit Provider Surgery Vascular Surgery
DX: I83.12 Varicose veins of left lower extremity with inflammation (principal)
CPT/HCPCS: 99204

== ENCOUNTER 2023-03-15 10:17 | Outpatient (REF) | payer OTHER, SELFPAY ==
--- NOTE | ~2023-03-15 | US_ITS ---
EXAMINATION: US VENOUS REFLUX/INSUFFICIENCY CLINICAL INFORMATION: Varicose veins of left lower extremity with inflammation.. COMPARISON: 11/25/2022 TECHNIQUE: Bilateral lower extremity venous insufficiency ultrasound was performed with velocity measurements. Color flow Doppler imaging was performed. This study is slightly technically limited as the patient is unable to tolerate compression at several levels. FINDINGS: RIGHT SIDE: No evidence of DVT or venous reflux within the common femoral, mid femoral, or popliteal vein. GREATER SAPHENOUS VEIN: The right saphenofemoral junction measures 0.6cm. The reflux time is 0 ms. Proximal thigh measures 0.5cm. Reflux time is 0 ms. Mid thigh measures 0.3cm. Reflux time is 0 ms. Above-knee measures 0.3cm. Reflux time is 0 ms. At the knee measures 0.3cm. Reflux time is 0 ms. Below the knee measures 0.3cm. Reflux time is 0 ms. Mid calf measures 0.4cm. Reflux time is 0 ms. At the level of the ankle it measures 0.3cm. Reflux time is 0 ms. There is a lateral accessory saphenous vein which measures 0.3 cm at the saphenofemoral junction and 0.2 cm at the mid thigh. No reflux is seen. SMALL SAPHENOUS VEIN: Within the right small saphenous vein there is a short segment of mild wall thickening which may represent chronic post thrombotic change, though no thrombus is seen. The saphenopopliteal junction measures 0.2 cm. Reflux time is 0 ms. The upper right small saphenous vein measures 0.3 cm. Reflux time is 0 ms.. The lower small saphenous vein measures 0.2cm. Reflux time is 0 ms. There is a varicosity of the proximal thigh which measures 0.3 cm and does not demonstrate reflux. There is a small knee effusion. LEFT SIDE: No evidence of DVT or venous reflux within the common femoral, mid femoral, or popliteal vein. GREATER SAPHENOUS VEIN: The left saphenofemoral junction measures 0.7cm. The reflux time is 0 ms. Proximal thigh measures 0.6cm. Reflux time is 0 ms. Mid thigh measures 0.4cm. Reflux time is 0 ms. Above-knee measures 0.3cm. Reflux time is 0 ms. At the knee measures 0.4cm. Reflux time is 0 ms. Below the knee measures 0.3cm. Reflux time is 0 ms. Mid calf measures 0.3cm. Reflux time is 0 ms. At the level of the ankle it measures0.3cm. Reflux time is 0 ms. There is a lateral accessory saphenous vein which measures 0.2 cm at the saphenofemoral junction and 0.1 cm at the mid thigh. No reflux is demonstrated. SMALL SAPHENOUS VEIN: The saphenopopliteal junction measures 0.1 cm. Reflux time is 0 ms. The upper left small saphenous vein measures 0.2 cm. Reflux time is 0 ms. The lower small saphenous vein measures 0.2cm. Reflux time is 0 ms. There are 2 roll over loader veins visualized at the proximal and mid calf which each measure 1 mm and do not demonstrate reflux. Incidental note is made of a Sharp's cyst which measures 4.5 x 1.8 x 5.1 cm. US/US venous duplex LE BI IMPRESSION: No evidence of bilateral lower extremity venous reflux. There is a 3 mm right lower extremity varicosity which does not demonstrate reflux. There is a small right knee joint effusion. There is a left Sharp cyst.
== END 2023-03-15 10:18 | disposition home or self-care (01) ==
LOC: HO.US 10:17
PROVIDERS: Visit Provider Surgery Vascular Surgery
DX: I83.12 Varicose veins of left lower extremity with inflammation (principal)
CPT/HCPCS: 93970

== ENCOUNTER 2023-03-21 14:18 | Outpatient (REF) | payer OTHER, SELFPAY ==
--- NOTE | ~2023-03-21 | XR_ITS ---
EXAMINATION: XR CHEST CLINICAL INFORMATION: Obesity secondary to excess calories COMPARISON: Chest radiograph from 01/04/2023 TECHNIQUE: 2 views of the chest were obtained. FINDINGS: Left basilar atelectasis. No pneumothorax. Trachea is midline. Cardiomediastinal silhouette is stable. Aorta demonstrates atherosclerotic calcifications. No large pleural effusion. Degenerative changes of the thoracolumbar spine. Soft tissues are unremarkable. XR/XR chest 2V IMPRESSION: Left basilar atelectasis.
== END 2023-03-21 14:19 | disposition home or self-care (01) ==
LOC: HO.XRAY 14:18
PROVIDERS: PCP Internal Medicine; Visit Provider Internal Medicine
DX: E66.09 Other obesity due to excess calories (principal); R09.02 Hypoxemia; G47.33 Obstructive sleep apnea (adult) (pediatric); Z68.41 Body mass index [BMI] 40.0-44.9, adult; Z79.899 Other long term (current) drug therapy
CPT/HCPCS: 71046; 99202

== ENCOUNTER 2023-03-21 14:18 | Outpatient (AMB) | payer OTHER, SELFPAY ==
[2023-03-21 14:35] VITALS: BP 140/70; PULSE 58; O2SAT 96; BMI 43.8
--- NOTE | 2023-03-21 14:35 | A.OFFVIS_ITS ---
Intake Vital Signs 03/21/23 14:35 Height 4 ft 5 in Weight 175 lb BMI 43.8 BP 140/70 H Blood Pressure Location Lt brachial Position Sitting Pulse 58 Pulse Source Pulse Oximeter Pulse Oximetry (%) 96 Oxygen Delivery Method Room Air Intake Visit Reasons: Nocturnal Hypoxia Intake Note: pt is here as a new patient for nocturnal hypoxia. pt states she does feel tired throughout the day, and falls asleep every 5 minutes. Bath Mix Operator Required: Yes Bath Mix Operator Name: Marcella Allergies metformin [From GLUCOPHAGE] Adverse Reaction (Unknown, Verified 03/21/23 16:48) DIARRHEA Medication List - Last Reconciled 03/21/23 by Tyrel Chamberlain MD acetaminophen (Tylenol Extra Strength) 1,000 mg (2 x 500 mg) PO QID PRN ascorbic acid (vitamin C) (Vitamin C) 250 mg PO DAILY aspirin 81 mg PO DAILY atorvastatin 40 mg PO BEDTIME blood sugar diagnostic (FreeStyle Lite Strips) As directed three times a day cholecalciferol (vitamin D3) 50 mcg PO DAILY cyclobenzaprine 5 mg PO TID PRN 7 days furosemide (Lasix) 20 mg PO DAILY gabapentin 300 mg PO BEDTIME hydralazine 25 mg PO BID insulin glargine 22 units (0.22 mL) subcut BEDTIME 90 days lancets (TRUEplus Lancets) As directed 3x/day lidocaine HCl 4% (Aspercreme (lidocaine HCl)) 1 appl topical BID PRN metoprolol tartrate 25 mg PO BID multivitamin 1 tab PO DAILY Novolog FlexPen U-100 Insulin (insulin aspart U-100) 18 - 20 units (0.18 - 0.2 mL) subcut TID 90 days NS oxycodone 5 mg PO Q6H PRN pen needle, diabetic (BD Kelly 2nd Gen Pen Needle) 5 times a day Do you need a note to return to daycare/school/sports/work: No HPI Nocturnal Hypoxia HPI Details This 72 years old female, Khmer speaking, is brought in today for pulmonary evaluation, as her recent home-based sleep study had shown mild nocturnal hypoxemia, Patient denies having had any previous chronic lung disease. She has no history of bronchial. Asthma are COPD . She does not have history of smoking. She has always been somewhat tired, especially on doing any. Physical work But this is not because of her getting short of breath. Patient has been moderately obese with a round face and short neck. She has typical features of a person with obstructive sleep apnea. She had a polysomnogram study in the sleep lab back in 2019, it did show mild obstructive sleep apnea with a cluster of obstructive events during REM sleep. His CPAP titration study was suggested at that time but was not followed thro [facility]. Last June and 2021 she had a home-based sleep study Total sleep time AHI was only 4.4 which was below the threshold for diagnosis of sleep apnea. However her O2 sat was relatively low during the night 92%, and O2 sat below 88% for 9 minute. Thus pulmonary evaluation was recommended. Patient claims that she sleeps okay and she tries to sleep in lateral position most of the time, She can sleep, sleepy to 9 hours she denies any daytime sleepiness, but her main complaint is that she gets tired easily. 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 Morbid obesity Obesity due to excess calories PB (obstructive sleep apnea) Peripheral nerve facial nerve paralysis Surgical History History of appendectomy Hx of bilateral cataract extraction Hx of hysterectomy Hx of tubal ligation Family History Father Cancer Mother Diabetes mellitus Social History Household Members: None Housing: Apartment Do you presently have visiting nurse or other home services: Yes Alcohol intake: never Patient Tobacco Use Status: Never used Tobacco Second Hand Smoke Exposure: No Advance Directives Date on File: 11/26/20 service: No Current occupational status: disabled Current occupation: rt handed Female Reproductive History Menstrual Age of Menarche: 12 Review of Systems Const All systems reviewed & are unremarkable except as noted in HPI and below Physical Exam Vital Signs: Last Vital Signs Pulse 58 03/21/23 14:35 BP 140/70 H 03/21/23 14:35 Pulse Ox 96 03/21/23 14:35 Oxygen Delivery Method Room Air 03/21/23 14:35 BMI result Body Mass Index 43.8 Patient is of face short stature with a round face, and short neck. Const General: comfortable, no acute distress, alert and awake Orientation/consciousness: patient oriented x3 HEENT Head: Yes normal to inspection General nose exam: No nasal polyps present and No nasal discharge present Face and sinus: Yes sinuses nontender Mouth: oropharynx abnormals (Oropharynx is somewhat crowded, Mallampati class 3) Throat: Yes posterior oropharynx normal Eyes General: appearance normal, both eyes and all related structures Neck Neck: Yes normal visual inspection, Yes no lymphadenopathy, Yes trachea midline, Yes no JVD and Yes other (Neck circumference 16-1/2 inch) Thyroid: Thyroid normal Chest Chest palpation & inspection: normal inspection of the chest, normal palpation of entire chest wall and no tenderness Resp Other: Percussion note resonant, breath sounds are slightly distant. Both lungs are clear no wheezes or rhonchi are heard. Cardio Palpation: normal PMI Rate: regular rate Rhythm: regular rhythm Heart sounds: no gallops and no murmurs GI Palpation (GI): Soft to palpation, nontender, No hepatosplenomegaly present and no masses Auscultation: normal bowel sounds Back/Spine/Pelvis Thoracic/Lumbar Spine: thoracic and lumbar spine normal to inspection Skin General skin exam: no rashes or lesions noted Neuro General: patient oriented x3 and no focal motor deficits Cranial nerves: Yes CN's II-XII intact bilaterally Extrem General: Yes normal to inspection, Yes no clubbing, cyanosis or edema and Yes no calf tenderness Psych Appearance: grossly normal Speech and movement: Normal speech and movement present Results Reviewed Results Reviewed: Results of sleep study from 2019 and also from June 2022 reviewed and discussed with patient CHEST XRAY TODAY : CARDIOMEGALY, SMALL LUNG VOLUMES , NO MASS OR INFILTERATES Assessment & Plan Assessment & Plan (1) Obesity due to excess calories: Comment: Because of her short stature her weight of 175 LBs does make her morbidly obese. She has a round face and short neck. These physical features are suggestive of sleep apnea. She is advised to cut down on eating the carbs try to lose 5-10 lb of weight. Code(s): E66.09 - Other obesity due to excess calories Qualifiers: Body mass index: BMI 40.0-44.9 Obesity classification: adult class 3 (BMI >= 40) Serious obesity comorbidity presence: with serious comorbidity Qualified Code(s): E66.01 - Morbid (severe) obesity due to excess calories; Z68.41 - Body mass index [BMI] 40.0-44.9, adult (2) Hypoxemia: Comment: Nocturnal hypoxemia was recorded during the home-based sleep study, However the hypoxemia was mild with O2 sat below 88% for only 9 minutes. The patient does not seem to have any underlying chronic pulmonary disease, but she may have some restrictive disorder because of her obesity. I HAVE ORDERED A CHEST X-RAY WHICH WILL BE DONE TODAY. ALSO SCHEDULED FOR PULMONARY FUNCTION TEST. Will decide after that if she needs any further treatment. We may have to do an overnight oximetry recording once again to check about nocturnal hypoxemia. Patient to be evaluated after the pulmonary function test. Code(s): R09.02 - Hypoxemia (3) PB (obstructive sleep apnea): Comment: Physical features are very much suggestive of the obstructive sleep apnea. However the last home-based sleep study did not confirm this diagnosis. I ADVISED THE PATIENT TO LOSE SOME WEIGHT AT LEAST 5-10 LB, ALSO ADVISED HER TO SLEEP IN LATERAL POSITION. If we suspect the sleep apnea very strongly then I think she will need to have a repeat study in the sleep lab. In any case I think it is going to be difficult for her to use the CPAP device. Code(s): G47.33 - Obstructive sleep apnea (adult) (pediatric) Orders: Orders XR chest 2V 03/21/23 E66.09 - Other obesity due to excess calories, R09.02 - Hypoxemia Coding Level of Care Code New Pt Level 4 (11973) Diagnoses Obesity due to excess calories E66.01; Z68.41 Body mass index: BMI 40.0-44.9 Obesity classification: adult class 3 (BMI >= 40) Serious obesity comorbidity presence: with serious comorbidity Hypoxemia R09.02 PB (obstructive sleep apnea) G47.33
== END 2023-03-21 15:16 | disposition home or self-care (01) ==
PROVIDERS: PCP Internal Medicine; Visit Provider Internal Medicine
DX: E66.01 Morbid (severe) obesity due to excess calories (principal); Z68.41 Body mass index [BMI] 40.0-44.9, adult; R09.02 Hypoxemia; G47.33 Obstructive sleep apnea (adult) (pediatric)
CPT/HCPCS: 99204

== ENCOUNTER 2023-05-04 13:48 | Outpatient (AMB) | payer OTHER, SELFPAY ==
--- NOTE | 2023-05-04 13:52 | MHC.OFFVIS ---
Intake Vital Signs 05/04/23 13:55 Height 4 ft 5 in Weight 170 lb BMI 42.5 BP 130/72 Blood Pressure Location Lt brachial Position Sitting Pulse 75 Pulse Source Pulse Oximeter Pulse Oximetry (%) 92 Oxygen Delivery Method Room Air Intake Visit Reasons: Nocturnal Hypoxia Intake Note: pt is here for follow up and states she would like to stay here in [place] for pulm care, sleep study is scheduled, and pft was suppose to be done 04/29 but missed, pt was not aware of this appointment. Brake Linings Coater Required: Yes Brake Linings Coater Name: Abi Allergies metformin [From GLUCOPHAGE] Adverse Reaction (Unknown, Verified 05/04/23 14:05) DIARRHEA Medication List - Last Reconciled 05/04/23 by Tyrel Chamberlain MD acetaminophen (Tylenol Extra Strength) 1,000 mg (2 x 500 mg) PO QID PRN ascorbic acid (vitamin C) (Vitamin C) 250 mg PO DAILY aspirin 81 mg PO DAILY atorvastatin 40 mg PO BEDTIME blood sugar diagnostic (FreeStyle Lite Strips) As directed three times a day cholecalciferol (vitamin D3) 50 mcg PO DAILY cyclobenzaprine 5 mg PO TID PRN 7 days furosemide (Lasix) 20 mg PO DAILY gabapentin 300 mg PO BEDTIME hydralazine 25 mg PO BID insulin glargine 22 units (0.22 mL) subcut BEDTIME 90 days lancets (TRUEplus Lancets) As directed 3x/day lidocaine HCl 4% (Aspercreme (lidocaine HCl)) 1 appl topical BID PRN metoprolol tartrate 25 mg PO BID multivitamin 1 tab PO DAILY Novolog FlexPen U-100 Insulin (insulin aspart U-100) 18 - 20 units (0.18 - 0.2 mL) subcut TID 90 days NS oxycodone 5 mg PO Q6H PRN pen needle, diabetic (BD Kelly 2nd Gen Pen Needle) 5 times a day Do you need a note to return to daycare/school/sports/work: No HPI Nocturnal Hypoxia HPI Details 72 years old, Albanian-speaking, very pleasant lady comes along with her daughter. We had a good conversation with the help of an library clerk. Since her last visit. She did have a chest x-ray which showed a plate like atelectasis in the left base, but no other. Significant abnormalities She missed having pulmonary function test. As she kept on complaining of getting short of breath when she walks especially climbing stairs, her other daughter made appointment with a flight communications operator at [facility], Who has booked her for an in-lab sleep study. To be done in the neck is few weeks at [facility]. As was noted on the last visit. , this patient is nonsmoker she denies history of bronchial asthma or previous COPD symptoms. She is grossly overweight for her height, BMI 42.5 and she does get short of breath when she walks, She say is that she sleeps good at night. SHE HAS COME HERE FOR FOLLOW-UP AND INSISTS THAT SHE WANTS TO BE FOLLOWED UP BY OS OVER HERE BECAUSE THIS IS MORE CONVENIENT FOR. 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 Diabetic nephropathy associated with type 2 diabetes mellitus Dyslipidemia Diabetes type 2, uncontrolled Surgical History Hx of tubal ligation Hx of bilateral cataract extraction Hx of hysterectomy History of appendectomy Family History Father Cancer Mother Diabetes mellitus Social History Household Members: None Housing: Apartment Do you presently have visiting nurse or other home services: Yes Alcohol intake: never Patient Tobacco Use Status: Never used Tobacco Second Hand Smoke Exposure: No Advance Directives Date on File: 11/26/20 service: No Current occupational status: disabled Current occupation: rt handed Female Reproductive History Menstrual Age of Menarche: 12 Review of Systems Const All systems reviewed & are unremarkable except as noted in HPI and below Physical Exam Vital Signs: Last Vital Signs Pulse 75 05/04/23 13:55 BP 130/72 05/04/23 13:55 Pulse Ox 92 05/04/23 13:55 Oxygen Delivery Method Room Air 05/04/23 13:55 BMI result Body Mass Index 42.5 Patient is of short stature with a round face, and short, obese neck. Const General: comfortable, no acute distress, alert and awake Orientation/consciousness: patient oriented x3 HEENT Head: Yes normal to inspection General nose exam: No nasal polyps present and No nasal discharge present Face and sinus: Yes sinuses nontender Mouth: oropharynx abnormals (Oropharynx is somewhat crowded, Mallampati class 3) Throat: Yes posterior oropharynx normal Eyes General: appearance normal, both eyes and all related structures Neck Neck: Yes normal visual inspection, Yes no lymphadenopathy, Yes trachea midline, Yes no JVD and Yes other (Neck circumference 16-1/2 inch) Thyroid: Thyroid normal Chest Chest palpation & inspection: normal inspection of the chest, normal palpation of entire chest wall and no tenderness Resp Other: Percussion note resonant, breath sounds are slightly distant. Both lungs are clear no wheezes or rhonchi are heard. Cardio Palpation: normal PMI Rate: regular rate Rhythm: regular rhythm Heart sounds: no gallops and no murmurs GI Palpation (GI): Soft to palpation, nontender, No hepatosplenomegaly present and no masses Auscultation: normal bowel sounds Back/Spine/Pelvis Thoracic/Lumbar Spine: thoracic and lumbar spine normal to inspection Skin General skin exam: no rashes or lesions noted Neuro General: patient oriented x3 and no focal motor deficits Cranial nerves: Yes CN's II-XII intact bilaterally Extrem General: Yes normal to inspection, Yes no clubbing, cyanosis or edema and Yes no calf tenderness Psych Appearance: grossly normal Speech and movement: Normal speech and movement present Results Reviewed Results Reviewed: CHEST X-RAY ON 03/21/2023. Left basilar atelectasis. No pneumothorax. Trachea is midline. Cardiomediastinal silhouette is stable. Aorta demonstrates atherosclerotic calcifications. No large pleural effusion. Degenerative changes of the thoracolumbar spine. Soft tissues are unremarkable. XR/XR chest 2V IMPRESSION: Left basilar atelectasis. I.e. review the image and, the atelectasis is only small plate like density. Assessment & Plan Assessment & Plan (1) Dyspnea on exertion: Comment: Her symptom of getting short of breath when she walks 1 block or climbs stairs, is probably related to restrictive component. She needs to have pulmonary function. Test which was missed Will make another appointment for PFT. She is advised to do deep breathing exercises 2 or 3 times a day. Code(s): R06.09 - Other forms of dyspnea (2) PB (obstructive sleep apnea): Comment: Physical features are very much suggestive of the obstructive sleep apnea. However the last home-based sleep study did not confirm this diagnosis. I ADVISED THE PATIENT TO LOSE SOME WEIGHT AT LEAST 5-10 LB, ALSO ADVISED HER TO SLEEP IN LATERAL POSITION,which she does. Since her last visit she had a visit with flight communications operator at [facility], who has scheduled her for polysomnogram study in the sleep lab. . The study will be done at [facility] sleep lab in the next couple of weeks, and I would review the results and then advise her further . Code(s): G47.33 - Obstructive sleep apnea (adult) (pediatric) (3) Hypoxemia: Comment: Nocturnal hypoxemia was recorded during the home-based sleep study, However the hypoxemia was mild with O2 sat below 88% for only 9 minutes. The patient does not have any baseline chronic lung disease. But she. May have sleep-related hypoventilation I think the study in the sleep lab , will make it clear, whether she needs CPAP or oxygen supplementation at night. Code(s): R09.02 - Hypoxemia (4) Obesity due to excess calories: Comment: Because of her short stature her weight of 175 LBs does make her morbidly obese. She has a round face and short neck. These physical features are suggestive of sleep apnea. She is advised to cut down on eating the carbs try to lose 5-10 lb of weight. Code(s): E66.09 - Other obesity due to excess calories Qualifiers: Obesity classification: adult class 3 (BMI >= 40) Serious obesity comorbidity presence: with serious comorbidity Body mass index: BMI 40.0-44.9 Qualified Code(s): E66.01 - Morbid (severe) obesity due to excess calories; Z68.41 - Body mass index [BMI] 40.0-44.9, adult Coding Level of Care Code Est Pt Level 3 (89687) Diagnoses Dyspnea on exertion R06.09 PB (obstructive sleep apnea) G47.33 Hypoxemia R09.02 Class 3 severe obesity due to excess calories with serious comorbidity and body mass index (BMI) of 40.0 to 44.9 in adult E66.01; Z68.41 Obesity classification: adult class 3 (BMI >= 40) Serious obesity comorbidity presence: with serious comorbidity Body mass index: BMI 40.0-44.9
[2023-05-04 13:55] VITALS: BP 130/72; PULSE 75; O2SAT 92; BMI 42.5
== END 2023-05-04 14:21 | disposition home or self-care (01) ==
PROVIDERS: PCP Internal Medicine; Visit Provider Internal Medicine
DX: R06.09 Other forms of dyspnea (principal); G47.33 Obstructive sleep apnea (adult) (pediatric); R09.02 Hypoxemia; E66.01 Morbid (severe) obesity due to excess calories; Z68.41 Body mass index [BMI] 40.0-44.9, adult
CPT/HCPCS: 99213

== ENCOUNTER → 2023-05-04 13:48 | Outpatient (BNVA) | payer OTHER, SELFPAY | PROVIDERS: PCP Internal Medicine; Visit Provider Internal Medicine | DX: G47.33 Obstructive sleep apnea (adult) (pediatric) (principal); R06.09 Other forms of dyspnea; R09.02 Hypoxemia; E66.01 Morbid (severe) obesity due to excess calories; Z68.41 Body mass index [BMI] 40.0-44.9, adult | CPT/HCPCS: 99212 ==

== ENCOUNTER → 2023-05-16 19:30 | Outpatient (REF) | payer OTHER, SELFPAY | LOC: HO.SL 19:30 | PROVIDERS: PCP Internal Medicine; Visit Provider Internal Medicine | DX: G47.30 Sleep apnea, unspecified (principal); R06.83 Snoring | CPT/HCPCS: 95810 ==

== ENCOUNTER → 2023-05-16 19:30 | Outpatient (BNV) | payer OTHER, SELFPAY | PROVIDERS: PCP Internal Medicine; Visit Provider Internal Medicine | DX: G47.30 Sleep apnea, unspecified (principal) | CPT/HCPCS: 95810 ==

== ENCOUNTER → 2023-06-06 14:43 | Outpatient (REF) | payer OTHER, SELFPAY ==
--- NOTE | 2023-06-06 14:46 | CA_ITS ---
Transthoracic Echocardiogram Patient (Last, First, Middle): Sindi Obrien, Gender: Female Date of : 1950 Age: 72 Procedure Date: 06/06/2023 Procedure Type: Transthoracic Echocardiogram Location: OP Height: 121.92 cm Weight: 74.84 kg BSA: 1.46 m2 Heart Rate: bpm BP: 160 / 70 mmHg Senior Pensions Administrator: MISHA/CHARO Referring MD: Ortiz Cosme MD Symptoms: LAKE R06.09 Study Quality: Fair ECG Rhythm: Sinus Conclusions: - The left ventricular systolic function is normal. The visually estimated ejection fraction is >70%. - There is mildly increased left ventricular wall thickness. - There is mild calcification of the aortic valve. - No obvious valvular pathology seen on this study. Findings Left Ventricle Normal left ventricular cavity size. There is mildly increased left ventricular wall thickness. The left ventricular systolic function is normal. The visually estimated ejection fraction is >70%. There is no evidence of regional wall motion abnormalities. There is no dynamic left ventricular obstruction. There is no dynamic left ventricular outflow tract obstruction. Evidence suggests grade I (mild) diastolic dysfunction. Right Ventricle Normal right ventricular cavity size and systolic function. Atria The left atrium is mildly dilated. The right atrium is normal in size. Aortic Valve There is a normal trileaflet aortic valve. There is mild calcification of the aortic valve. There is no aortic valve stenosis. There is no aortic valve regurgitation. Mitral Valve The mitral valve appears normal. There is trace mitral valve regurgitation. There is no mitral valve stenosis. Pulmonic Valve The pulmonic valve is likely normal. Tricuspid Valve There is trace tricuspid valve regurgitation. There is no evidence of pulmonary hypertension. Great Vessels The asc aorta and aortic arch are normal in size. Venous The inferior vena cava is normal in size and collapses less than 50% with inspiration. Pericardium/Pleural There is no evidence of pericardial effusion. Prior Study Comparison No significant change compared to prior study dated: 05/20/2010. Recommendations, Care & Conclusions No obvious valvular pathology seen on this study. Measurements 2D Linear Measurements IVSd: 1.25 0.6-0.9/0.6-1.0 cm LVIDd: 3.47 3.9-5.3/4.2-5.9 cm LVIDd Index: 2.38 2.4-3.2/2.2-3.1 cm/m2 LVIDs: 2.34 2.0-3.6 cm LVPWd: 1.18 0.7-1.1 cm LA Diam: 3.30 2.7-3.8/3.0-4.0 cm LAIDs Index: 2.26 1.5-2.3 cm/m2 LV Mass: 170.14 67-162/88-224 g LV Mass Index: 116.53 43-95/49-115 g/m2 LVOT Diam: 1.80 3.0+(-)1.3 cm 2D Systolic Function EF 4C: 64.20 >55% EF 2C: 62.80 >55% EF BiP: 63.30 >55% Mitral Valve MV Pk E: 0.75 MV PK A: 1.08 MV Decel Time: 183.00 E/A: 0.70 E'Lateral: 5.87 E'Medial: 5.11 E/E' Med: 14.80 E/E' Lat: 12.80 PHT: 54.00 MVA PHT: 4.07 Decel Marin: 4.13 Aortic Valve AoV Pk Greg: 1.47 AoV Mn Greg: 1.03 AoV VTI: 0.41 AoV Pk Grad: 9.00 Aov Mn Grad: 5.00 KAMALJIT Cont.VTI: 1.82 LVOT LVOT Pk Greg: 1.07 LVOT Mn Greg: 0.74 LVOT VTI: 0.29 LVOT Pk Grad: 5.00 LVOT Mn Grad: 2.00 LVOT Diam: 1.80 LVOT Area: 2.54 Diastolic Function MV Pk E: 0.75 MV Pk A: 1.08 E/A: 0.70 E'Medial: 5.11 E/E' Med: 14.80 E' Laterial: 5.87 E/E' Lat: 12.80 Right Ventricle TAPSE (mm): 20.00 TVS' Greg: 9.57 Tricuspid Valve TR Pk Greg: 2.28 TR Pk Grad: 21.00 RA Press: 8.00 RVSP: 29.00 Great Vessels Aorta Sinus of Valsalva: 2.80 2.0-3.[address] Ridge: 1.86 1.7-3.4 cm Ao Asc: 2.90 2.1-3.4 cm Ao Arch: 2.80 Updated in Other Vendor System with Status of Final Pablo Camejo MD electronically signed on 06/07/2023 11:13:00 AM with status of Final
== END ==
LOC: HO.CARD 14:43
PROVIDERS: PCP Internal Medicine; Visit Provider Internal Medicine Cardiovascular Disease
DX: R06.09 Other forms of dyspnea (principal); J45.909 Unspecified asthma, uncomplicated
CPT/HCPCS: 93306

== ENCOUNTER → 2023-06-06 14:46 | Outpatient (BNV) | payer OTHER, SELFPAY | PROVIDERS: PCP Internal Medicine; Visit Provider Internal Medicine | DX: I35.8 Other nonrheumatic aortic valve disorders (principal) | CPT/HCPCS: 93306 ==

== ENCOUNTER 2023-06-13 13:58 | Outpatient (AMB) | payer OTHER, SELFPAY ==
[2023-06-13 13:59] VITALS: BP 100/40; PULSE 80; BMI 42.5
--- NOTE | 2023-06-13 13:59 | MHC.OFFVIS ---
Intake Vital Signs 06/13/23 13:59 Height 4 ft 5 in Weight 169 lb 15.622 oz BMI 42.5 BP 100/40 L Blood Pressure Location Lt brachial Position Sitting Pulse 80 Pulse Source Pulse Oximeter Intake Visit Reasons: DM2/ Lata Intake Note: New patient present today for Type [address] Rahman patient. Last Diabetic Eye exam: Over 1 year Last Podiatry Visit: 04/2023 Random Glucose:255 mg/dl HgA1C: 9.9% Floor Trader Required: Yes Floor Trader Language: Health Education Teacher Name: Karen medical staff Information Interpreted: non-clinical & clinical Accompanied by: Daughter Allergies metformin [From GLUCOPHAGE] Adverse Reaction (Unknown, Verified 06/13/23 14:08) DIARRHEA HPI HPI Comments History of Present Illness Details Patient is 72-year-old female with DM type 2 diagnosed at the age of 44 who presents for management of diabetes. Patient was last seen 08/21/2021 by Linda Rahman NP Past medical history: Diabetes type 2, hypertension, dyslipidemia, obesity, Vasquez's palsy, CKD 3 Micro and macrovascular complications: Retinopathy s/p use laser multiple times, nephropathy CKD 3, neuropathy. CVD, CAD, PAD Diabetes medications: Lantus 25 units, NovoLog 18 units with meals (uses 20 with larger meals., 5 units with coffee). Reports rash with blake sensor. 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 Appt in 2021 Other specialists: sales operations manager, count room clerk, therapist, Laboratory Tests 03/14/20 11/27/20 12/12/20 08:20 05:15 12:59 Creatinine Estimated GFR Hgb A1c (Clinic) 9.4 H Triglycerides 98 Cholesterol 143 LDL Cholesterol, C alc 68 HDL Cholesterol 56 TSH Microalb/Creat Rat io 108.9 12/26/20 05/19/21 10:39 11:11 Creatinine 1.49 H Estimated GFR 35 Hgb A1c (Clinic) Triglycerides Cholesterol LDL Cholesterol, C alc HDL Cholesterol TSH 1.55 Microalb/Creat Rat io [facility] Medical History (Updated 05/04/23 @ 14:26 by Tyrel Chamberlain MD) Dyspnea on exertion PB (obstructive sleep apnea) Hypoxemia Breast calcification, right Obesity due to excess calories Peripheral nerve facial nerve paralysis History of CVA (cerebrovascular accident) GERD (gastroesophageal reflux disease) Asthma Morbid obesity Hypertension CKD stage 3 due to type 2 diabetes mellitus USP (current) use of insulin Diabetic nephropathy associated with type 2 diabetes mellitus Dyslipidemia Diabetes type 2, uncontrolled Surgical History Hx of tubal ligation Hx of bilateral cataract extraction Hx of hysterectomy History of appendectomy Family History Father Cancer Mother Diabetes mellitus Social History Household Members: None Housing: Apartment Do you presently have visiting nurse or other home services: Yes Alcohol intake: never Patient Tobacco Use Status: Never used Tobacco Second Hand Smoke Exposure: No Advance Directives Date on File: 11/26/20 service: No Current occupational status: disabled Current occupation: rt handed Female Reproductive History Menstrual Age of Menarche: 12 Physical Exam Vital Signs: Last Vital Signs Pulse 80 06/13/23 13:59 BP 100/40 L 06/13/23 13:59 BMI result Body Mass Index 42.5 Absence of Cushingoid features. Absence of acromegalic features. Neck exam reveals nl size thyroid about 15 gms. No thyroid nodules palpable. No carotid bruits present. Lungs CTA. Heart S1 S2, Reg R/R. No M/R/ G. Skin exam reveals absence of vitiligo or acanthosis nigricans. Abdominal exam reveals Soft NT/ND with NA BS. No organomegaly present. Neck Other: . Extrem Other: Visual exam of foot performed. No ulcerations or open lesions. No onchomycosis, no callouses.Pulses 2 + distally Sensation intact to monofilament exam. Vibratory sensation sensed is intact with 128 Hz tuning fork Results AMB Hemoglobin A1c AMB Hemoglobin A1c 9.9 % Last Edit by Berta Maldonado on 06/13/23 14:21 Assessment & Plan Assessment & Plan (1) Diabetes type 2, uncontrolled: Comment: IDDM Code(s): E11.65 - Type 2 diabetes mellitus with hyperglycemia Plan: This is 72-year-old female with history of type 2 diabetes being treated with basal-bolus insulin with poor glycemic control and known microvascular and macrovascular complications namely Retinopathy s/p use laser multiple times, nephropathy CKD 3, neuropathy. CVD, CAD, PAD. The plan is that the patient check her point cares pre and post meals. Will talk to patient about getting an sensor again. Will check a lipid profile., microalbumin to creatinine ratio. Went over correlation of poor glycemic control to development and progression of complications. Orders: Orders AMB Hemoglobin A1c Today E11.65 - Type 2 diabetes mellitus with hyperglycemia Medications: New flash glucose scanning reader (FreeStyle Blake 2 Sargents) As directed 1 ea 0RF flash glucose sensor (FreeStyle Blake 2 Sensor kit) As directed change every 14 days 2 ea 4RF flash glucose scanning reader (FreeStyle Blake 2 Sargents) As directed 1 ea 0RF Refilled pen needle, diabetic (BD Kelly 2nd Gen Pen Needle) 5 times a day 400 ea 4RF E11.65 - Type 2 diabetes mellitus with hyperglycemia Coding Level of Care Code Est Pt Level 4 (35016) Diagnoses Diabetes type 2, uncontrolled E11.65
[2023-06-13 14:17] LABS: Glucose, Whole Blood 255 mg/dL (60-115)
== END 2023-06-13 14:30 | disposition home or self-care (01) ==
PROVIDERS: PCP Internal Medicine; Visit Provider Internal Medicine Endocrinology, Diabetes & Metabolism
DX: E11.65 Type 2 diabetes mellitus with hyperglycemia (principal)
CPT/HCPCS: 99214

== ENCOUNTER → 2023-06-13 13:58 | Outpatient (BNVA) | payer OTHER, SELFPAY | PROVIDERS: PCP Internal Medicine; Visit Provider Internal Medicine Endocrinology, Diabetes & Metabolism | DX: E11.65 Type 2 diabetes mellitus with hyperglycemia (principal) | CPT/HCPCS: 82947; 83036; 99212 ==

== ENCOUNTER 2023-06-22 14:00 | Outpatient (AMB) | payer OTHER, SELFPAY ==
[2023-06-22 14:07] VITALS: BP 142/70; PULSE 71; O2SAT 97; BMI 42.3
--- NOTE | 2023-06-22 14:07 | A.OFFVIS_ITS ---
Intake Vital Signs 06/22/23 14:07 Height 4 ft 5 in Weight 169 lb BMI 42.3 BP 142/70 H Blood Pressure Location Lt brachial Position Sitting Pulse 71 Pulse Source Pulse Oximeter Pulse Oximetry (%) 97 Oxygen Delivery Method Room Air Intake Visit Reasons: Nocturnal Hypoxia Intake Note: pt is here for follow up and states she feels good Russian Rubber Required: Yes Russian Rubber Name: paul Allergies metformin [From GLUCOPHAGE] Adverse Reaction (Unknown, Verified 06/22/23 16:04) DIARRHEA Medication List - Last Reconciled 06/22/23 by Tyrel Chamberlain MD acetaminophen (Tylenol Extra Strength) 1,000 mg (2 x 500 mg) PO QID PRN ascorbic acid (vitamin C) (Vitamin C) 250 mg PO DAILY aspirin 81 mg PO DAILY atorvastatin 40 mg PO BEDTIME blood sugar diagnostic (FreeStyle Lite Strips) As directed three times a day cholecalciferol (vitamin D3) 50 mcg PO DAILY flash glucose scanning reader (FreeStyle Blake 2 [place]) As directed flash glucose sensor (FreeStyle Blake 2 Sensor kit) As directed change every 14 days gabapentin 300 mg PO BEDTIME hydralazine 25 mg PO BID insulin glargine 22 units (0.22 mL) subcut BEDTIME 90 days lancets (TRUEplus Lancets) As directed 3x/day metoprolol tartrate 25 mg PO BID Novolog FlexPen U-100 Insulin (insulin aspart U-100) 18 - 20 units (0.18 - 0.2 mL) subcut TID 90 days NS pen needle, diabetic (BD Kelly 2nd Gen Pen Needle) 5 times a day Do you need a note to return to daycare/school/sports/work: No HPI Nocturnal Hypoxia HPI Details 72 years old female of face short stachu re and grossly obese with a round face. She has typical features for obstructive sleep apnea. Also has complained of getting short of breath on exertion but today she denies any significant shortness of breath cough or wheezing. She still has the difficulty in getting good sleep and wakes up during the night a few times. She did have a sleep lab based Polysomnograph study but in in July 2019. His CPAP titration study in the sleep lab was recommended which has not been followed through. Patient and her family tells me that she did have a recent study in the sleep lab, and we are having difficulty in locating that study. 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 Diabetic nephropathy associated with type 2 diabetes mellitus Dyslipidemia Diabetes type 2, uncontrolled Surgical History Hx of tubal ligation Hx of bilateral cataract extraction Hx of hysterectomy History of appendectomy Family History Father Cancer Mother Diabetes mellitus Social History Household Members: None Housing: Apartment Do you presently have visiting nurse or other home services: Yes Alcohol intake: never Patient Tobacco Use Status: Never used Tobacco Second Hand Smoke Exposure: No Advance Directives Date on File: 11/26/20 service: No Current occupational status: disabled Current occupation: rt handed Female Reproductive History Menstrual Age of Menarche: 12 Review of Systems Const All systems reviewed & are unremarkable except as noted in HPI and below Physical Exam Vital Signs: Last Vital Signs Pulse 71 06/22/23 14:07 BP 142/70 H 06/22/23 14:07 Pulse Ox 97 06/22/23 14:07 Oxygen Delivery Method Room Air 06/22/23 14:07 BMI result Body Mass Index 42.3 Patient is of short stature with a round face, and short, obese neck. Const General: comfortable, no acute distress, alert and awake Orientation/consciousness: patient oriented x3 HEENT Head: Yes normal to inspection General nose exam: No nasal polyps present and No nasal discharge present Face and sinus: Yes sinuses nontender Mouth: oropharynx abnormals (Oropharynx is somewhat crowded, Mallampati class 3) Throat: Yes posterior oropharynx normal Eyes General: appearance normal, both eyes and all related structures Neck Neck: Yes normal visual inspection, Yes no lymphadenopathy, Yes trachea midline, Yes no JVD and Yes other (Neck circumference 16-1/2 inch) Thyroid: Thyroid normal Chest Chest palpation & inspection: normal inspection of the chest, normal palpation of entire chest wall and no tenderness Resp Other: Percussion note resonant, breath sounds are slightly distant. Both lungs are clear no wheezes or rhonchi are heard. Cardio Palpation: normal PMI Rate: regular rate Rhythm: regular rhythm Heart sounds: no gallops and no murmurs GI Palpation (GI): Soft to palpation, nontender, No hepatosplenomegaly present and no masses Auscultation: normal bowel sounds Back/Spine/Pelvis Thoracic/Lumbar Spine: thoracic and lumbar spine normal to inspection Skin General skin exam: no rashes or lesions noted Neuro General: patient oriented x3 and no focal motor deficits Cranial nerves: Yes CN's II-XII intact bilaterally Extrem General: Yes normal to inspection, Yes no clubbing, cyanosis or edema and Yes no calf tenderness Psych Appearance: grossly normal Speech and movement: Normal speech and movement present Results Reviewed Results Reviewed: Patient had overnight polysomnogram study in the sleep lab on 05/16/2023. Her sleep Efficiency was 67% sleep quality was poor and she had only minimal REM sleep 4.6 % Total sleep time AHI only 4.5 which is below the threshold for diagnosis of sle ep apnea. Snoring was for 34% of the sleep time She had significant amount of PLMS with PL M index 107 per hour and PLM arousal index 21/Hr . Assessment & Plan Assessment & Plan (1) Snoring: Comment: Polysomnogram study shows that she had snoring for 34% of the sleep time. Code(s): R06.83 - Snoring Plan: Weight reduction and sleeping in lateral position should minimize the amount of snoring (2) PB (obstructive sleep apnea): Comment: Physical features are very much suggestive of the obstructive sleep apnea. However the current polysomnogram study on 05/16 shows total sleep time AHI of 4.5 which is below the threshold for sleep apnea. Explained to the patient advise that she should always sleep in lateral position. She should try to lose some weight if she can. ( at least 5-10 lb ) Code(s): G47.33 - Obstructive sleep apnea (adult) (pediatric) Plan: as above (3) Hypoxemia: Comment: Nocturnal hypoxemia was recorded during the home-based sleep study, However the current polysomnogram study recorded O2 sat below 88% for only 3.9 minutes which is not significant. She does not need supplemental oxygen at night. Code(s): R09.02 - Hypoxemia Plan: as above Coding Level of Care Code Est Pt Level 3 (79038) Diagnoses Snoring R06.83 PB (obstructive sleep apnea) G47.33 Hypoxemia R09.02
== END 2023-06-22 14:35 | disposition home or self-care (01) ==
PROVIDERS: PCP Internal Medicine; Visit Provider Internal Medicine
DX: R06.83 Snoring (principal); G47.33 Obstructive sleep apnea (adult) (pediatric); R09.02 Hypoxemia
CPT/HCPCS: 99213

== ENCOUNTER → 2023-06-22 14:00 | Outpatient (BNVA) | payer OTHER, SELFPAY | PROVIDERS: PCP Internal Medicine; Visit Provider Internal Medicine | DX: G47.33 Obstructive sleep apnea (adult) (pediatric) (principal); R06.83 Snoring; R09.02 Hypoxemia | CPT/HCPCS: 99212 ==

== ENCOUNTER 2023-06-30 12:57 | Outpatient (AMB) | payer OTHER, SELFPAY ==
[2023-06-30 12:59] VITALS: BMI 42.3
--- NOTE | 2023-06-30 12:59 | A.OFFVIS_ITS ---
Intake Vital Signs 06/30/23 12:59 Height 4 ft 5 in Weight 169 lb BMI 42.3 Intake Visit Reasons: FU US Venous Duplex Intake Note: follow up US 03/15/23 for LE swelling and pain,Left LE worse than Right LE , tried compression but states they are too tight, has redness and warmth at times. Interior Design Instructor Required: Yes Accompanied by: Daughter Allergies metformin [From GLUCOPHAGE] Adverse Reaction (Unknown, Verified 06/30/23 13:03) DIARRHEA HPI FU US Venous Duplex HPI Details Very pleasant morbidly obese 72-year-old female presents for follow-up regarding venous insufficiency testing. She has swelling of the lower extremities upon discussion with her she reports that she has more of foot pain knee pain radiating on up to the hip. It has been persistent for some time. She has try to wear compression stockings with minimal relief. 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 Diabetic nephropathy associated with type 2 diabetes mellitus Dyslipidemia Diabetes type 2, uncontrolled Surgical History Hx of tubal ligation Hx of bilateral cataract extraction Hx of hysterectomy History of appendectomy Family History Father Cancer Mother Diabetes mellitus Social History Household Members: None Housing: Apartment Do you presently have visiting nurse or other home services: Yes Alcohol intake: never Patient Tobacco Use Status: Never used Tobacco Second Hand Smoke Exposure: No Advance Directives Date on File: 11/26/20 service: No Current occupational status: disabled Current occupation: rt handed Female Reproductive History Menstrual Age of Menarche: 12 Review of Systems Const All systems reviewed & are unremarkable except as noted in HPI and below Reports no additional complaints ENT Reports Normal hearing present Card Denies chest pain, Denies chest pain at rest, Denies chest pain with activity and Denies pedal edema Resp Denies cough GI Denies abdominal pain Musc Denies abnormal gait, Denies muscle cramps and Denies radiating pain into limb Skin/Breast Denies skin ulcer and Denies wounds Neuro Reports Normal hearing present and Denies abnormal gait Psych Reports no additional complaints Physical Exam Vital Signs: BMI result Body Mass Index 42.3 Const General: cooperative, healthy appearing and comfortable Orientation/consciousness: oriented to person, oriented to place and oriented to time HEENT Head: Yes normal to inspection Neck Neck: Yes normal visual inspection Carotids: no bruits Chest Chest palpation & inspection: normal inspection of the chest Resp Effort & Inspection: normal respiratory effort and able to speak in complete sentences Auscultation: clear to auscultation bilaterally, no crackles, no rales, no rhonchi and no wheezes Cardio Rate: regular rate Rhythm: regular rhythm Heart sounds: S1 normal heart sound present and S2 normal heart sound present Bruits: no carotid bruits Peripheral pulses: Peripheral pulses 2+ throughout GI Inspection: Yes normal to inspection Skin Wounds: no wounds Hair: normal Neuro General: oriented to person, oriented to place and oriented to time Cranial nerves: Yes CN's II-XII intact bilaterally and Yes Normal hearing present Cognition (Neuro): normal cognition Motor exam (neuro): 5/5 motor strength present throughout Extrem Other: venous exam: No significant superficial varicosities or spider telangiectasias, minimal edema General: No clubbing, No cyanosis and No edema Psych Appearance: grossly normal Mental Status: mental status grossly normal Speech and movement: Normal speech and movement present Results Reviewed Results Reviewed: Brief summary of venous insufficiency testing is as follows: right great saphenous vein: negative right small saphenous vein: negative right accessory vein: none present left great saphenous vein: negative left small saphenous vein: negative left accessory vein: none present Please note there is no evidence of any venous aneurysms or significant tortuosity Of note there may be right joint effusion at the knee as noted by ultrasound Assessment & Plan Assessment & Plan (1) Varicose veins of left lower extremity with inflammation: Code(s): I83.12 - Varicose veins of left lower extremity with inflammation Plan: In short patient is negative for any significant venous insufficiency. At the current time would continue with routine conservative measures including compression elevation and exercise. She had pain and discomfort persist may benefit from an orthopedic evaluation as there is a questionable effusion of that right knee. She will follow up with us on an as-needed basis. Thank you for allowing us to assist in her care. If there are questions or concerns please do not hesitate to contact us Coding Level of Care Code Est Pt Level 4 (43097) Diagnoses Varicose veins of left lower extremity with inflammation I83.12
== END 2023-06-30 13:14 | disposition home or self-care (01) ==
PROVIDERS: PCP Internal Medicine; Visit Provider Surgery Vascular Surgery
DX: I83.12 Varicose veins of left lower extremity with inflammation (principal)
CPT/HCPCS: 99213

== ENCOUNTER → 2023-06-30 12:57 | Outpatient (BNVA) | payer OTHER, SELFPAY | PROVIDERS: PCP Internal Medicine; Visit Provider Surgery Vascular Surgery | DX: I83.12 Varicose veins of left lower extremity with inflammation (principal) | CPT/HCPCS: 99212 ==

== ENCOUNTER 2023-07-28 09:14 | Outpatient (REF) | payer OTHER, SELFPAY ==
[2023-07-28 11:40] LABS: Anion Gap 13 (12-20); Blood Urea Nitrogen 35 mg/dL (9-16); Calcium 9.6 mg/dL (8.4-10.2); Carbon Dioxide 25 mmol/L (22-29); Chloride 108 mmol/L (96-108); Estimated Glomerular Filt Rate 32; Glucose Random 116 mg/dL (60-115); Potassium 5.2 mmol/L (3.3-5.1); Sodium 141 mmol/L (135-145)
== END 2023-07-28 09:15 | disposition home or self-care (01) ==
LOC: HO.HHCL 09:14
PROVIDERS: Visit Provider Family Medicine
DX: Z86.39 Personal history of other endocrine, nutritional and metabolic disease (principal)
CPT/HCPCS: 36415; 80048

== ENCOUNTER 2023-08-16 10:35 | Outpatient (REF) | payer OTHER, SELFPAY ==
--- NOTE | ~2023-08-16 | XR_ITS ---
EXAMINATION: XR CHEST CLINICAL INFORMATION: Lower chest pain COMPARISON: 03/21/2023 TECHNIQUE: 2 views of the chest were obtained. FINDINGS: No significant abnormality is noted involving the heart, lungs, mediastinum, bony thorax or soft tissues. Dense seen is a tiny scar/atelectasis at the left lung base. XR/XR chest 2V IMPRESSION: Unremarkable examination.
--- NOTE | ~2023-08-16 | XR_ITS ---
EXAMINATION: XR LUMBOSACRAL SPINE CLINICAL INFORMATION: 3 days of upper lumbar pain COMPARISON: CT abdomen pelvis 09/06/2022 TECHNIQUE: Three views of the lumbosacral spine. FINDINGS: Mild spondylitic degenerative changes are seen in the spine with small endplate osteophytes. Vertebral body heights are maintained. There is disc space narrowing seen at T12-L1 and L1-L2 along with mild narrowing at L4-L5 and L5-S1. No bony destructive lesions or acute fractures are seen. XR/XR lumbar spine 2-3V IMPRESSION: Mild degenerative changes in the spine as described above.
== END 2023-08-16 10:36 | disposition home or self-care (01) ==
LOC: HO.HHCX 10:35
PROVIDERS: Visit Provider Emergency Medicine
DX: R07.9 Chest pain, unspecified (principal); M54.50 Low back pain, unspecified
CPT/HCPCS: 71046; 72100

== ENCOUNTER 2023-08-16 10:46 | Outpatient (REF) | payer OTHER, SELFPAY ==
[2023-08-16 12:21] LABS: Anion Gap 12 (12-20); Blood Urea Nitrogen 28 mg/dL (9-16); Calcium 9.3 mg/dL (8.4-10.2); Carbon Dioxide 30 mmol/L (22-29); Chloride 107 mmol/L (96-108); Estimated Glomerular Filt Rate 38; Glucose Random 79 mg/dL (60-115); Potassium 4.8 mmol/L (3.3-5.1); Sodium 144 mmol/L (135-145)
== END 2023-08-16 10:47 | disposition home or self-care (01) ==
LOC: HO.HHCL 10:46
PROVIDERS: Visit Provider Emergency Medicine
DX: M54.50 Low back pain, unspecified (principal); I10 Essential (primary) hypertension; R82.90 Unspecified abnormal findings in urine
CPT/HCPCS: 36415; 80048; 87086

== ENCOUNTER 2023-08-17 11:52 | Outpatient (AMB) | payer OTHER, SELFPAY ==
[2023-08-17 11:53] VITALS: BP 166/60; PULSE 62; O2SAT 96; BMI 43.6
--- NOTE | 2023-08-17 11:53 | HO.NEPHOV ---
HPI HPI Comments History of Present Illness Details I had the privilege of seeing Sindi in follow-up of her chronic kidney disease due to biopsy-proven diabetic nephropathy. Her blood sugar control continues to be labile. She has history of cerebrovascular accident. She has hypertension. She had no deficits from CVA. Blood pressure is better controlled. She has not good with her diet and weight loss. She is tolerating Jardiance without any side effects . She denies using any nonsteroidal anti-inflammatories but consumes normal sodium and has a normal diet. she was on angiotensin receptor claude in the past which she did not tolerate very well. She denies chest pain, shortness of breath, paroxysmal nocturnal dyspnea, orthopnea, pedal edema, urinary symptoms or orthostasis. She tries to maintain herself with good hydration. She did not have any new active complaints at the time of this office visit. 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 Diabetic nephropathy associated with type 2 diabetes mellitus Dyslipidemia Diabetes type 2, uncontrolled Surgical History Hx of tubal ligation Hx of bilateral cataract extraction Hx of hysterectomy History of appendectomy Family History Father Cancer Mother Diabetes mellitus Social History Household Members: None Housing: Apartment Do you presently have visiting nurse or other home services: Yes Alcohol intake: never Patient Tobacco Use Status: Never used Tobacco Second Hand Smoke Exposure: No Advance Directives Date on File: 11/26/20 service: No Current occupational status: disabled Current occupation: rt handed Female Reproductive History Menstrual Age of Menarche: 12 Vital Signs 08/17/23 11:53 08/17/23 12:25 Height 4 ft 5 in Weight 174 lb 4 oz BMI 43.6 BP 166/60 H 130/60 Blood Pressure Location Lt brachial Position Sitting Pulse 62 Pulse Source Pulse Oximeter Pulse Oximetry (%) 96 Oxygen Delivery Method Room Air Physical Exam Vital Signs: Last Vital Signs Pulse 62 08/17/23 11:53 BP 130/60 08/17/23 12:25 Pulse Ox 96 08/17/23 11:53 Oxygen Delivery Method Room Air 08/17/23 11:53 BMI result Body Mass Index 43.6 Const General: comfortable and no acute distress Orientation/consciousness: patient oriented x3 HEENT Head: Yes normocephalic Mouth: Normal oral and palatal mucosa present Eyes EOM: EOMs intact bilaterally Neck Neck: Yes supple Resp Auscultation: clear to auscultation bilaterally Cardio Jugular venous distension: no JVD Rate: regular rate GI Palpation (GI): Soft to palpation Auscultation: normal bowel sounds General: Yes no CVA tenderness Back/Spine/Pelvis Back: no CVA tenderness Skin General skin exam: no rashes or lesions noted Neuro General: patient oriented x3 and moves all extremities Extrem General: Yes no pedal edema Assessment & Plan Assessment & Plan (1) Diabetic nephropathy associated with type 2 diabetes mellitus: Code(s): E11.21 - Type 2 diabetes mellitus with diabetic nephropathy (2) CKD stage 3 due to type 2 diabetes mellitus: Code(s): E11.22 - Type 2 diabetes mellitus with diabetic chronic kidney disease; N18.30 - Chronic kidney disease, stage 3 unspecified (3) Hypertension: Code(s): I10 - Essential (primary) hypertension Qualifiers: Hypertension type: primary hypertension Qualified Code(s): I10 - Essential (primary) hypertension Plan Sindi has 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 Her renal biopsy in the past showed significant disease from diabetes and hypertension. She had been off angiotensin receptor claude. I wanted her to go back on losartan 25 mg daily which she did not want to , given her potassium may go up. She should be on a low-potassium diet. I discussed with her that in the event if her serum potassium goes up on initiating ARB, we could manage that with medications. She wants to think about it. She is on diuretics. She is tolerating Jardiance very well. She should maintain a tighter blood sugar control. She should cut back sodium in the diet and lose weight. She should maintain good hydration and avoid nonsteroidal anti-inflammatories. I did not make any medication changes today. Follow-up blood work ordered. Answered all questions. Follow-up given. Orders: Orders Blood Urea Nitrogen 08/17/23 E11. - Type 2 diabetes mellitus with diabetic nephropathy Electrolytes 08/17/23 E11. - Type 2 diabetes mellitus with diabetic nephropathy Creatinine 08/17/23 E11.21 - Type 2 diabetes mellitus with diabetic nephropathy Complete Blood Count Auto Diff 08/17/23 E11. - Type 2 diabetes mellitus with diabetic nephropathy Coding Level of Care Code Est Pt Level 4 (09789) Diagnoses Diabetic nephropathy associated with type 2 diabetes mellitus E11. CKD stage 3 due to type 2 diabetes mellitus E11.22; N18.30 Primary hypertension I10 Hypertension type: primary hypertension Results Reviewed Nephrology Results: Sodium 144 mmol/L (135-145) 08/16/23 Potassium 4.8 mmol/L (3.3-5.1) 08/16/23 Chloride 107 mmol/L (96-108) 08/16/23 Carbon Dioxide 30 mmol/L (22-29) H 08/16/23 BUN 28 mg/dL (9-16) H 08/16/23 Creatinine 1.37 mg/dL (0.5-1.4) 08/16/23 Calcium 9.3 mg/dL (8.4-10.2) 08/16/23
[2023-08-17 12:25] VITALS: BP 130/60
== END 2023-08-17 12:51 | disposition home or self-care (01) ==
PROVIDERS: PCP Internal Medicine; Visit Provider Internal Medicine Nephrology
DX: E11.21 Type 2 diabetes mellitus with diabetic nephropathy (principal); E11.22 Type 2 diabetes mellitus with diabetic chronic kidney disease; N18.30 Chronic kidney disease, stage 3 unspecified; I10 Essential (primary) hypertension
CPT/HCPCS: 99214

== ENCOUNTER → 2023-08-17 11:52 | Outpatient (BNVA) | payer OTHER, SELFPAY | PROVIDERS: PCP Internal Medicine; Visit Provider Internal Medicine Nephrology | DX: E11.21 Type 2 diabetes mellitus with diabetic nephropathy (principal); E11.22 Type 2 diabetes mellitus with diabetic chronic kidney disease; I12.9 Hypertensive chronic kidney disease with stage 1 through stage 4 chronic kidney disease, or unspecified chronic kidney disease; N18.30 Chronic kidney disease, stage 3 unspecified | CPT/HCPCS: 99212 ==

== ENCOUNTER 2023-08-24 13:26 | Outpatient (AMB) | payer OTHER, SELFPAY ==
[2023-08-24 13:35] VITALS: BP 130/52; PULSE 59; O2SAT 92; BMI 43.0
--- NOTE | 2023-08-24 13:35 | A.OFFVIS_ITS ---
Intake Vital Signs 08/24/23 13:35 Height 4 ft 5 in Weight 172 lb BMI 43.0 BP 130/52 L Blood Pressure Location Lt brachial Position Sitting Pulse 59 Pulse Source Pulse Oximeter Pulse Oximetry (%) 92 Oxygen Delivery Method Room Air Intake Visit Reasons: Nocturnal Hypoxia Intake Note: pt is here for follow up visit and states she has little fatigue and short of breath. 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 Stringing Machine Operator Name: Jarred Holguin metformin [From GLUCOPHAGE] Adverse Reaction (Unknown, Verified 08/24/23 13:56) DIARRHEA Medication List - Last Reconciled 08/24/23 by Tyrel Chamberlain MD acetaminophen (Tylenol Extra Strength) 1,000 mg (2 x 500 mg) PO QID PRN ascorbic acid (vitamin C) (Vitamin C) 250 mg PO DAILY aspirin 81 mg PO DAILY atorvastatin 40 mg PO BEDTIME biotin 1,000 mcg PO DAILY blood sugar diagnostic (FreeStyle Lite Strips) As directed three times a day cholecalciferol (vitamin D3) 50 mcg PO DAILY empagliflozin (Jardiance) 10 mg PO DAILY flash glucose scanning reader (FreeStyle Blake 2 [place]) As directed flash glucose sensor (FreeStyle Blake 2 Sensor kit) As directed change every 14 days furosemide 20 mg PO DAILY gabapentin 300 mg PO BEDTIME hydralazine 25 mg PO BID insulin glargine 22 units (0.22 mL) subcut BEDTIME 90 days lancets (TRUEplus Lancets) As directed 3x/day metoprolol tartrate 25 mg PO BID Novolog FlexPen U-100 Insulin (insulin aspart U-100) 18 - 20 units (0.18 - 0.2 mL) subcut TID 90 days NS pen needle, diabetic (BD Kelyl 2nd Gen Pen Needle) 5 times a day Do you need a note to return to daycare/school/sports/work: No HPI Nocturnal Hypoxia HPI Details THIS 72 YEARS OLD FEMALE, MORBIDLY OBESE, COMES FOR FOLLOW-UP AFTER 2 MONTHS, TO DISCUSS ABOUT HER SLEEP ISSUE, AND POSSIBLE NOCTURNAL HYPOXEMIA. SHE COMPLAINS OF POOR SLEEP AT NIGHT BE DUE TO FREQUENT AWAKENINGS. SHE TRIES TO SLEEP MOSTLY IN THE RIGHT LATERAL POSITION. SHE DOES HAVE FATIGUE WELL MILD SLEEPINESS DURING THE DAYTIME. SHE DENIES COUGH WHEEZING OR ANY RESPIRATORY DISTRESS. SHE HAS SOME SHORTNESS OF BREATH ON EXERTION BUT SHE WALKS VERY SLOWLY ANYWAY. SHE HAS HAD HOME-BASED SLEEP STUDY WELL POLYSOMNOGRAM STUDY IN THE SLEEP LAB. 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 Diabetic nephropathy associated with type 2 diabetes mellitus Dyslipidemia Diabetes type 2, uncontrolled Surgical History Hx of tubal ligation Hx of bilateral cataract extraction Hx of hysterectomy History of appendectomy Family History Father Cancer Mother Diabetes mellitus Social History Household Members: None Housing: Apartment Do you presently have visiting nurse or other home services: Yes Alcohol intake: never Patient Tobacco Use Status: Never used Tobacco Second Hand Smoke Exposure: No Advance Directives Date on File: 11/26/20 service: No Current occupational status: disabled Current occupation: rt handed Female Reproductive History Menstrual Age of Menarche: 12 Review of Systems Const All systems reviewed & are unremarkable except as noted in HPI and below Eyes Reports no additional complaints ENT Reports no additional complaints Card Denies chest pain, Denies irregular heart rhythm and Denies leg edema Resp Reports as per HPI GI Reports no additional complaints Musc Reports abnormal gait (GAIT IS SLOW AND SHE NEEDS CANE FOR STABILITY) and Reports muscle weakness (GENERALIZED MUSCULAR WEAKNESS) Skin/Breast Reports system reviewed and no additional complaints, except as documented Neuro Reports abnormal gait (GAIT IS SLOW AND SHE NEEDS CANE FOR STABILITY) Psych Reports no additional complaints Physical Exam Vital Signs: Last Vital Signs Pulse 59 08/24/23 13:35 BP 130/52 L 08/24/23 13:35 Pulse Ox 92 08/24/23 13:35 Oxygen Delivery Method Room Air 08/24/23 13:35 BMI result Body Mass Index 43.0 Patient is of short stature with a round face, and short, obese neck. Const General: comfortable, no acute distress, alert and awake Orientation/consciousness: patient oriented x3 HEENT Head: Yes normal to inspection General nose exam: No nasal polyps present and No nasal discharge present Face and sinus: Yes sinuses nontender Mouth: oropharynx abnormals (Oropharynx is somewhat crowded, Mallampati class 3) Throat: Yes posterior oropharynx normal Eyes General: appearance normal, both eyes and all related structures Neck Neck: Yes normal visual inspection, Yes no lymphadenopathy, Yes trachea midline, Yes no JVD and Yes other (Neck circumference 16-1/2 inch) Thyroid: Thyroid normal Chest Chest palpation & inspection: normal inspection of the chest, normal palpation of entire chest wall and no tenderness Resp Other: Percussion note resonant, breath sounds are slightly distant. Both lungs are clear no wheezes or rhonchi are heard. Cardio Palpation: normal PMI Rate: regular rate Rhythm: regular rhythm Heart sounds: no gallops and no murmurs GI Palpation (GI): Soft to palpation, nontender, No hepatosplenomegaly present and no masses Auscultation: normal bowel sounds Back/Spine/Pelvis Thoracic/Lumbar Spine: thoracic and lumbar spine normal to inspection Skin General skin exam: no rashes or lesions noted Neuro General: patient oriented x3 and no focal motor deficits Cranial nerves: Yes CN's II-XII intact bilaterally Extrem General: Yes normal to inspection, Yes no clubbing, cyanosis or edema and Yes no calf tenderness Psych Appearance: grossly normal Speech and movement: Normal speech and movement present Results Reviewed Results Reviewed: POLYSOMNOGRAM STUDY ON 05/16/23 SHOWED ONLY MINIMAL OBSTRUCTIVE SLEEP APNEA EVENTS BUT LESS THAN THRESHOLD OF 5 PER HOUR. ALSO HER O2 SAT BELOW 88% FOR ONLY FOR 3.9 MINUTES. ON BASIS OF THIS STUDY PATIENT DID NOT QUALIFY FOR OXYGEN AT NIGHT OR FOR CPAP. Assessment & Plan Assessment & Plan (1) Dyspnea on exertion: Comment: Her symptom of getting short of breath when she walks 1 block or climbs stairs, is probably related to restrictive component. She needs to have pulmonary function. Test which was missed SHE HAS HAD NO PULMONARY FUNCTION TEST., Code(s): R06.09 - Other forms of dyspnea Plan: She is advised to do deep breathing exercises 2 or 3 times a day. (2) Snoring: Comment: Polysomnogram study shows that she had snoring for 34% of the sleep time. Code(s): R06.83 - Snoring Plan: ADVISE THAT SHE SHOULD TRY TO LOSE SOME WEIGHT EVEN 5-10 LB WEIGHT LOSS WILL BE SIGNIFICANT. ALSO ADVISED TO ALWAYS SLEEP IN THE LATERAL POSITION. (3) PB (obstructive sleep apnea): Comment: Physical features are very much suggestive of the obstructive sleep apnea. However the current polysomnogram study on 05/16 shows total sleep time AHI of 4.5which is below the threshold for sleep apnea. She would not qualify for using CPAP. Explained to the patient . advised that she should always sleep in lateral position. She should try to lose some weight if she can. ( at least 5-10 lb ) Code(s): G47.33 - Obstructive sleep apnea (adult) (pediatric) Plan: as above Coding Level of Care Code Est Pt Level 3 (30126) Diagnoses Dyspnea on exertion R06.09 Snoring R06.83 PB (obstructive sleep apnea) G47.33
== END 2023-08-24 14:05 | disposition home or self-care (01) ==
PROVIDERS: PCP Internal Medicine; Visit Provider Internal Medicine
DX: R06.09 Other forms of dyspnea (principal); R06.83 Snoring; G47.33 Obstructive sleep apnea (adult) (pediatric)
CPT/HCPCS: 99213

== ENCOUNTER → 2023-08-24 13:26 | Outpatient (BNVA) | payer OTHER, SELFPAY | PROVIDERS: PCP Internal Medicine; Visit Provider Internal Medicine | DX: R06.09 Other forms of dyspnea (principal); R06.83 Snoring; G47.33 Obstructive sleep apnea (adult) (pediatric) | CPT/HCPCS: 99212 ==

== ENCOUNTER 2023-09-28 10:34 | Outpatient (AMB) | payer OTHER, SELFPAY ==
[2023-09-28 10:44] VITALS: BP 160/62; PULSE 66; O2SAT 95; BMI 44.3
--- NOTE | 2023-09-28 10:44 | HO.NEPHOV_ITS ---
HPI HPI Comments History of Present Illness Details I had the privilege of seeing Sindi in follow-up of her chronic kidney disease due to biopsy-proven diabetic nephropathy. Her blood sugar control continues to be labile. She has history of cerebrovascular accident. She has hypertension. She had no deficits from CVA. Blood pressure is better controlled. She has not good with her diet and weight loss. She is tolerating Jardiance without any side effects . She denies using any nonsteroidal anti- inflammatories but consumes normal sodium and has a normal diet. she was on angiotensin receptor claude in the past which she did not tolerate very well. She denies chest pain, shortness of breath, paroxysmal nocturnal dyspnea, orthopnea, pedal edema, urinary symptoms or orthostasis. She tries to maintain herself with good hydration. She has been having facial swelling and pedal edema which improved with diuresis. She is not compliant with low sodium diet. 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 Diabetic nephropathy associated with type 2 diabetes mellitus Dyslipidemia Diabetes type 2, uncontrolled Surgical History Hx of tubal ligation Hx of bilateral cataract extraction Hx of hysterectomy History of appendectomy Family History Father Cancer Mother Diabetes mellitus Social History Household Members: None Housing: Apartment Do you presently have visiting nurse or other home services: Yes Alcohol intake: never Patient Tobacco Use Status: Never used Tobacco Second Hand Smoke Exposure: No Advance Directives Date on File: 11/26/20 service: No Current occupational status: disabled Current occupation: rt handed Female Reproductive History Menstrual Age of Menarche: 12 Vital Signs 09/28/23 10:44 Height 4 ft 5 in Weight 177 lb 2 oz BMI 44.3 BP 160/62 H Blood Pressure Location Rt brachial Position Sitting Pulse 66 Pulse Source Pulse Oximeter Pulse Oximetry (%) 95 Oxygen Delivery Method Room Air Physical Exam Vital Signs: Last Vital Signs Pulse 66 09/28/23 10:44 BP 160/62 H 09/28/23 10:44 Pulse Ox 95 09/28/23 10:44 Oxygen Delivery Method Room Air 09/28/23 10:44 BMI result Body Mass Index 44.3 Const General: comfortable and no acute distress Orientation/consciousness: patient oriented x3 HEENT Head: Yes normocephalic Mouth: Normal oral and palatal mucosa present Eyes EOM: EOMs intact bilaterally Neck Neck: Yes supple Resp Auscultation: clear to auscultation bilaterally Cardio Jugular venous distension: no JVD Rate: regular rate GI Palpation (GI): Soft to palpation Auscultation: normal bowel sounds General: Yes no CVA tenderness Back/Spine/Pelvis Back: no CVA tenderness Skin General skin exam: no rashes or lesions noted Neuro General: patient oriented x3 and moves all extremities Extrem General: Yes no pedal edema Assessment & Plan Assessment & Plan (1) CKD stage 3 due to type 2 diabetes mellitus: Code(s): E11.22 - Type 2 diabetes mellitus with diabetic chronic kidney disease; N18.30 - Chronic kidney disease, stage 3 unspecified (2) Hypertension: Code(s): I10 - Essential (primary) hypertension Qualifiers: Hypertension type: primary hypertension Qualified Code(s): I10 - Essential (primary) hypertension (3) Diabetic nephropathy associated with type 2 diabetes mellitus: Code(s): E11.21 - Type 2 diabetes mellitus with diabetic nephropathy (4) Edema: Code(s): R60.9 - Edema, unspecified Qualifiers: Edema type: unspecified Qualified Code(s): R60.9 - Edema, unspecified Plan Sindi has 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 Her renal biopsy in the past showed significant disease from diabetes and hypertension. She had been off angiotensin receptor claude. I wanted her to go back on losartan 25 mg daily which she did not want to , given her potassium may go up. She should be on a low-potassium diet. I discussed with her that in the event if her serum potassium goes up on initiating ARB, we could manage that with medications. She wants to think about it. She is on diuretics. She is tolerating Jardiance very well. She should maintain a tighter blood sugar control. She should cut back sodium in the diet and lose weight. She should maintain good hydration and avoid nonsteroidal anti- inflammatories. She is hypervolemic. I increased her lasix to 40 mg daily. I have ordered follow up blood work. She may need addition of Imdur and ECHO. I did not make any other medication changes today. Orders: Orders Alanine Aminotransferase Today E11. - Type 2 diabetes mellitus with diabetic chronic kidney disease, I10 - Essential (primary) hypertension, N18.30 - Chronic kidney disease, stage 3 unspecified, R60.9 - Edema, unspecified NT-proBNP Today E11. - Type 2 diabetes mellitus with diabetic chronic kidney disease, I10 - Essential (primary) hypertension, N18.30 - Chronic kidney disease, stage 3 unspecified, R60.9 - Edema, unspecified Protein Creatinine Ratio, Ur Today E11. - Type 2 diabetes mellitus with diabetic chronic kidney disease, I10 - Essential (primary) hypertension, N18.30 - Chronic kidney disease, stage 3 unspecified, R60.9 - Edema, unspecified Creatinine Today E11. - Type 2 diabetes mellitus with diabetic chronic kidney disease, I10 - Essential (primary) hypertension, N18.30 - Chronic kidney disease, stage 3 unspecified, R60.9 - Edema, unspecified Albumin Level Today E11. - Type 2 diabetes mellitus with diabetic chronic kidney disease, I10 - Essential (primary) hypertension, N18.30 - Chronic kidney disease, stage 3 unspecified, R60.9 - Edema, unspecified Aspartate Amino Transferase Today E11. - Type 2 diabetes mellitus with diabetic chronic kidney disease, I10 - Essential (primary) hypertension, N18.30 - Chronic kidney disease, stage 3 unspecified, R60.9 - Edema, unspecified Blood Urea Nitrogen Today E11. - Type 2 diabetes mellitus with diabetic chronic kidney disease, I10 - Essential (primary) hypertension, N18.30 - Chronic kidney disease, stage 3 unspecified, R60.9 - Edema, unspecified Electrolytes Today E11. - Type 2 diabetes mellitus with diabetic chronic kidney disease, I10 - Essential (primary) hypertension, N18.30 - Chronic kidney disease, stage 3 unspecified, R60.9 - Edema, unspecified Coding Level of Care Code Est Pt Level 4 (21983) Diagnoses CKD stage 3 due to type 2 diabetes mellitus E11.; N18.30 Primary hypertension I10 Hypertension type: primary hypertension Diabetic nephropathy associated with type 2 diabetes mellitus E11.21 Edema, unspecified type R60.9 Edema type: unspecified Results Reviewed Nephrology Results: Sodium 144 mmol/L (135-145) 08/16/23 Potassium 4.8 mmol/L (3.3-5.1) 08/16/23 Chloride 107 mmol/L (96-108) 08/16/23 Carbon Dioxide 30 mmol/L (22-29) H 08/16/23 BUN 28 mg/dL (9-16) H 08/16/23 Creatinine 1.37 mg/dL (0.5-1.4) 08/16/23 Calcium 9.3 mg/dL (8.4-10.2) 08/16/23
== END 2023-09-28 11:26 | disposition home or self-care (01) ==
PROVIDERS: PCP Internal Medicine; Visit Provider Internal Medicine Nephrology
DX: E11.22 Type 2 diabetes mellitus with diabetic chronic kidney disease (principal); N18.30 Chronic kidney disease, stage 3 unspecified; I10 Essential (primary) hypertension; E11.21 Type 2 diabetes mellitus with diabetic nephropathy; R60.9 Edema, unspecified
CPT/HCPCS: 99214

== ENCOUNTER → 2023-09-28 10:34 | Outpatient (BNVA) | payer OTHER, SELFPAY | PROVIDERS: PCP Internal Medicine; Visit Provider Internal Medicine Nephrology | DX: E11.22 Type 2 diabetes mellitus with diabetic chronic kidney disease (principal); I12.9 Hypertensive chronic kidney disease with stage 1 through stage 4 chronic kidney disease, or unspecified chronic kidney disease; N18.30 Chronic kidney disease, stage 3 unspecified; E11.21 Type 2 diabetes mellitus with diabetic nephropathy; R60.9 Edema, unspecified | CPT/HCPCS: 99212 ==

== ENCOUNTER 2023-09-30 07:59 | Outpatient (REF) | payer OTHER, SELFPAY ==
[2023-09-30 09:21] LABS: Cholesterol 143 mg/dL (<200); HDL Cholesterol 69 mg/dL (>40); LDL Cholesterol Calculated 64 mg/dL (<100); Triglycerides 50 mg/dL (<150)
[2023-09-30 09:36] LABS: Creatinine Urine 47.78 mg/dL; Microalbum/Creatinine Ratio Ur 479.2 ug/mg cr (<30)
== END 2023-09-30 08:00 | disposition home or self-care (01) ==
LOC: HO.LAB 07:59
PROVIDERS: PCP Internal Medicine; Visit Provider Internal Medicine Endocrinology, Diabetes & Metabolism
DX: E11.65 Type 2 diabetes mellitus with hyperglycemia (principal)
CPT/HCPCS: 36415; 80061; 82043; 82570

== ENCOUNTER 2023-10-04 13:52 | Outpatient (AMB) | payer OTHER, SELFPAY ==
[2023-10-04 14:03] VITALS: BP 106/42; PULSE 55; BMI 43.4
--- NOTE | 2023-10-04 14:03 | MHC.OFFVIS ---
Intake Vital Signs 10/04/23 14:03 Height 4 ft 5 in Weight 173 lb 4.533 oz BMI 43.4 BP 106/42 L Blood Pressure Location Lt brachial Position Sitting Pulse 55 Pulse Source Pulse Oximeter Intake Visit Reasons: DM2-confirmed Intake Note: Patient present today to follow up on Type 2 Diabetes Mellitus. Patient receives DME supplies through: Pharmacy Last Diabetic Eye exam: 07/2023 Last Podiatry Visit: 09/25/23 Random Glucose: 177 mg/dl HgA1C: 8.4% Oil Pipeline Dispatcher Required: Yes Oil Pipeline Dispatcher Language: Electroplating Sales Representative Name: Karen medical staff Information Interpreted: non-clinical & clinical Accompanied by: Daughter Allergies metformin [From GLUCOPHAGE] Adverse Reaction (Unknown, Verified 10/04/23 14:09) DIARRHEA Medication List - Last Reconciled 10/04/23 by Castillo Aly MD acetaminophen (Tylenol Extra Strength) 1,000 mg (2 x 500 mg) PO QID PRN ascorbic acid (vitamin C) (Vitamin C) 250 mg PO DAILY aspirin 81 mg PO DAILY atorvastatin 40 mg PO BEDTIME biotin 1,000 mcg PO DAILY blood sugar diagnostic (FreeStyle Lite Strips) As directed three times a day cholecalciferol (vitamin D3) 50 mcg PO DAILY empagliflozin (Jardiance) 10 mg PO DAILY flash glucose scanning reader (FreeStyle Blake 2 [place]) As directed flash glucose sensor (FreeStyle Blake 2 Sensor kit) As directed change every 14 days furosemide 40 mg (2 x 20 mg) PO DAILY gabapentin 300 mg PO BEDTIME hydralazine 25 mg PO BID insulin glargine 22 units (0.22 mL) subcut BEDTIME 90 days lancets (TRUEplus Lancets) As directed 3x/day metoprolol tartrate 25 mg PO BID Novolog FlexPen U-100 Insulin (insulin aspart U-100) 18 - 20 units (0.18 - 0.2 mL) subcut TID 90 days NS pen needle, diabetic (BD Kelly 2nd Gen Pen Needle) 5 times a day HPI HPI Comments History of Present Illness Details Patient is 72-year-old female with DM type 2 diagnosed at the age of 44 who presents for management of diabetes. Past medical history: Diabetes type 2, hypertension, dyslipidemia, obesity, Vasquez's palsy, CKD 3 Micro and macrovascular complications: Retinopathy s/p use laser multiple times, nephropathy CKD 3, neuropathy. CVD, CAD, PAD Diabetes medications: Lantus 25 units, NovoLog 18 units with meals (uses 20 with larger meals., 5 units with coffee). . Jardiance 10 mg QD Uses gabapentin 300mg at bedtime Blood glucose monitoring: Blake download shows she is using the sensor 78% of the time. Average glucose is 169 with G mi of 7.4%. Glucose is in target range 57% of the time with 38% hyperglycemia and 5% hypoglycemia. Most of the hypoglycemia is occurring overnight Symptoms reported: numbness, tingling, cramping in lower extremities Hypoglycemia:occasionally overnight Hyperglycemia: denies urinary frequency, nocturia, polydypsia Exercise: Director Of Curriculum And Instruction - CDE education: in past Engineering Technical Writer: 09/26/2023 Dental exam: 3 years ago, edentulous Ophthalmology evaluation: 07/2023 , positive retinopathy. Other specialists: executive associate, him clerk, therapist, Laboratory Tests 03/14/20 11/27/20 12/12/20 08:20 05:15 12:59 Creatinine Estimated GFR Hgb A1c (Clinic) 9.4 H Triglycerides 98 Cholesterol 143 LDL Cholesterol, C alc 68 HDL Cholesterol 56 TSH Microalb/Creat Rat io 108.9 12/26/20 05/19/21 10:39 11:11 Creatinine 1.49 H Estimated GFR 35 Hgb A1c (Clinic) Triglycerides Cholesterol LDL Cholesterol, C alc HDL Cholesterol TSH 1.55 Microalb/Creat Rat io [facility] Medical History (Updated 09/28/23 @ 11:22 by Garrison Silverio MD) Snoring Dyspnea on exertion PB (obstructive sleep apnea) Hypoxemia Breast calcification, right Obesity due to excess calories Peripheral nerve facial nerve paralysis History of CVA (cerebrovascular accident) GERD (gastroesophageal reflux disease) Asthma Morbid obesity Hypertension CKD stage 3 due to type 2 diabetes mellitus skilled nursing (current) use of insulin Diabetic nephropathy associated with type 2 diabetes mellitus Dyslipidemia Diabetes type 2, uncontrolled Surgical History Hx of tubal ligation Hx of bilateral cataract extraction Hx of hysterectomy History of appendectomy Family History Father Cancer Mother Diabetes mellitus Social History Household Members: None Housing: Apartment Do you presently have visiting nurse or other home services: Yes Alcohol intake: never Patient Tobacco Use Status: Never used Tobacco Second Hand Smoke Exposure: No Advance Directives Date on File: 11/26/20 service: No Current occupational status: disabled Current occupation: rt handed Female Reproductive History Menstrual Age of Menarche: 12 Physical Exam Vital Signs: Last Vital Signs Pulse 55 10/04/23 14:03 BP 106/42 L 10/04/23 14:03 BMI result Body Mass Index 43.4 Absence of Cushingoid features. Absence of acromegalic features. Neck exam reveals nl size thyroid about 15 gms. No thyroid nodules palpable. No carotid bruits present. Lungs CTA. Heart S1 S2, Reg R/R. No M/R/ G. Skin exam reveals absence of vitiligo or acanthosis nigricans. Abdominal exam reveals Soft NT/ND with NA BS. No organomegaly present. Neck Other: . Extrem Other: Visual exam of foot performed. No ulcerations or open lesions. No onchomycosis, no callouses.Pulses 2 + distally Sensation intact to monofilament exam. Vibratory sensation sensed is intact with 128 Hz tuning fork Results AMB Hemoglobin A1c AMB Hemoglobin A1c 8.4 % Last Edit by JACKLYN Johnson on 10/04/23 14:21 Results Reviewed Results Reviewed: Laboratory Last Values Glucose (Clinic) 177 mg/dL (60-115) H 10/04/23 14:11 Assessment & Plan Assessment & Plan (1) Diabetes type 2, uncontrolled: Comment: IDDM Code(s): E11.65 - Type 2 diabetes mellitus with hyperglycemia Plan: This is 72-year-old female with history of type 2 diabetes being treated with basal-bolus insulin with good improved r glycemic control and known microvascular and macrovascular complications namely Retinopathy s/p use laser multiple times, nephropathy CKD 3, neuropathy. CVD, CAD, PAD. The plan is decrease Lantus 20 units and to 15 units if continued hypoglycemia occurs overnight. I will also start Mounjaro 2.5 mg Qwkly . Patient had previously tried and failed Trulicity. Went over side effects of Mounjaro including but not limited to nausea, vomiting rare risk of pancreatitis. Will have patient see community nutrition educator and test preparation tutor. Orders: Orders AMB Hemoglobin A1c Today E11.65 - Type 2 diabetes mellitus with hyperglycemia, Z13.9 - Encounter for screening, unspecified Referrals Diabetes Education Referral E11.65 - Type 2 diabetes mellitus with hyperglycemia Nutrition/Dietitian Referral E11.65 - Type 2 diabetes mellitus with hyperglycemia Medications: New tirzepatide (Mounjaro) 2.5 mg (0.5 mL) subcut QWEEK 4 weeks 2 mL 4RF Changed From insulin glargine 22 units (0.22 mL) subcut BEDTIME 90 days 30 mL 1RF E11.65 - Type 2 diabetes mellitus with hyperglycemia To insulin glargine 20 units (0.2 mL) subcut BEDTIME 90 days 18 mL 1RF E11.65 - Type 2 diabetes mellitus with hyperglycemia Coding Level of Care Code Est Pt Level 4 (25364) Diagnoses Diabetes type 2, uncontrolled E11.65
[2023-10-04 14:16] LABS: Glucose, Whole Blood 177 mg/dL (60-115)
== END 2023-10-04 14:28 | disposition home or self-care (01) ==
PROVIDERS: PCP Internal Medicine; Visit Provider Internal Medicine Endocrinology, Diabetes & Metabolism
DX: Z13.9 Encounter for screening, unspecified (principal); E11.65 Type 2 diabetes mellitus with hyperglycemia
CPT/HCPCS: 99214

== ENCOUNTER → 2023-10-04 13:52 | Outpatient (BNVA) | payer OTHER, SELFPAY | PROVIDERS: PCP Internal Medicine; Visit Provider Internal Medicine Endocrinology, Diabetes & Metabolism | DX: E11.65 Type 2 diabetes mellitus with hyperglycemia (principal); Z79.4 Long term (current) use of insulin | CPT/HCPCS: 82947; 83036; 99212 ==

== ENCOUNTER 2023-10-10 12:40 | Outpatient (REF) | payer OTHER, SELFPAY ==
[2023-10-10 12:53] LABS: MANUAL DIFF FLAG NO
[2023-10-10 13:42] LABS: Basophils Percent Auto 0.4 % (0-2); Eosinophils Absolute Auto 0.3 X10*3/uL (0.0-0.4); Hematocrit 38.6 % (37.0-47.0); Hemoglobin 12.5 g/dl (12.0-16.0); Imm Gran Abs Auto 0.02 X10*3/uL (0.00-0.03); Imm Gran Pct Auto 0.2 % (0.0-0.4); Lymphocytes Absolute Auto 1.2 X10*3/uL (1.2-4.9); Lymphocytes Percent Auto 14.5 % (20-40); Mean Corpuscular HGB Conc 32.4 g/dl (31.0-35.0); Mean Corpuscular Hemoglobin 30.1 pg (27.0-33.0); Mean Platelet Volume 11.1 fL (9.4-12.3); Monocytes Absolute Auto 0.7 X10*3/uL (0.1-1.2); Monocytes Percent Auto 8.3 % (2-11); Neutrophils Percent Auto 72.6 % (45-73); Platelet Count 220 X10*3/uL (160-400); Red Blood Count 4.15 X10*6/uL (4.20-5.50); Red Cell Distribution Width 12.8 % (11.0-16.0); White Blood Count 8.3 X10*3/uL (4.8-10.8)
[2023-10-10 14:40] LABS: Alanine Aminotransferase 21 U/L (0-31); Albumin Level 3.9 g/dL (3.5-5.0); Anion Gap 14 (12-20); Aspartate Amino Transferase 24 U/L (5-31); Blood Urea Nitrogen 41 mg/dL (9-16); Carbon Dioxide 28 mmol/L (22-29); Chloride 100 mmol/L (96-108); Estimated Glomerular Filt Rate 26; Potassium 4.7 mmol/L (3.3-5.1); Sodium 137 mmol/L (135-145)
[2023-10-10 14:41] LABS: Creatinine Urine 46.22 mg/dL; Total Protein Urine Random 23 mg/dL (<12)
[2023-10-15 15:25] LABS: NT-proBNP 293 pg/mL (<125)
== END 2023-10-10 12:41 | disposition home or self-care (01) ==
LOC: HO.LAB 12:40
PROVIDERS: PCP Internal Medicine; Visit Provider Internal Medicine Nephrology
DX: I12.9 Hypertensive chronic kidney disease with stage 1 through stage 4 chronic kidney disease, or unspecified chronic kidney disease (principal); E11.22 Type 2 diabetes mellitus with diabetic chronic kidney disease; N18.30 Chronic kidney disease, stage 3 unspecified; R60.9 Edema, unspecified; E11.21 Type 2 diabetes mellitus with diabetic nephropathy
CPT/HCPCS: 36415; 80051; 82040; 82565; 82570; 83880; 84156; 84450; 84460; 84520; 85025

== ENCOUNTER 2023-10-12 10:16 | Outpatient (AMB) | payer OTHER, SELFPAY ==
[2023-10-12 10:20] VITALS: BP 130/52; PULSE 68; O2SAT 95; BMI 41.8
--- NOTE | 2023-10-12 10:20 | HO.NEPHOV ---
HPI HPI Comments History of Present Illness Details I had the privilege of seeing Sindi in follow-up of her chronic kidney disease due to biopsy-proven diabetic nephropathy. Her blood sugar control continues to be labile. She has history of cerebrovascular accident. She has hypertension. She had no deficits from CVA. Blood pressure is better controlled. She has not good with her diet and weight loss. She is tolerating Jardiance without any side effects . She denies using any nonsteroidal anti-inflammatories but consumes normal sodium and has a normal diet. she was on angiotensin receptor claude in the past which she did not tolerate very well. She denies chest pain, shortness of breath, paroxysmal nocturnal dyspnea, orthopnea, pedal edema, urinary symptoms or orthostasis. She tries to maintain herself with good hydration. She has been having facial swelling and pedal edema which resolved with diuresis. She is not compliant with low sodium diet. 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 insulin Diabetic nephropathy associated with type 2 diabetes mellitus Dyslipidemia Diabetes type 2, uncontrolled Surgical History Hx of tubal ligation Hx of bilateral cataract extraction Hx of hysterectomy History of appendectomy Family History Father Cancer Mother Diabetes mellitus Social History Household Members: None Housing: Apartment Do you presently have visiting nurse or other home services: Yes Alcohol intake: never Patient Tobacco Use Status: Never used Tobacco Second Hand Smoke Exposure: No Advance Directives Date on File: 11/26/20 service: No Current occupational status: disabled Current occupation: rt handed Female Reproductive History Menstrual Age of Menarche: 12 Vital Signs 10/12/23 10:20 Height 4 ft 5 in Weight 167 lb BMI 41.8 BP 130/52 L Blood Pressure Location Rt brachial Position Sitting Pulse 68 Pulse Source Pulse Oximeter Pulse Oximetry (%) 95 Oxygen Delivery Method Room Air Physical Exam Vital Signs: Last Vital Signs Pulse 68 10/12/23 10:20 BP 130/52 L 10/12/23 10:20 Pulse Ox 95 10/12/23 10:20 Oxygen Delivery Method Room Air 10/12/23 10:20 BMI result Body Mass Index 41.8 Const General: comfortable and no acute distress Orientation/consciousness: patient oriented x3 HEENT Head: Yes normocephalic Mouth: Normal oral and palatal mucosa present Eyes EOM: EOMs intact bilaterally Neck Neck: Yes supple Resp Auscultation: clear to auscultation bilaterally Cardio Jugular venous distension: no JVD Rate: regular rate GI Palpation (GI): Soft to palpation Auscultation: normal bowel sounds General: Yes no CVA tenderness Back/Spine/Pelvis Back: no CVA tenderness Skin General skin exam: no rashes or lesions noted Neuro General: patient oriented x3 and moves all extremities Extrem General: Yes no pedal edema Assessment & Plan Assessment & Plan (1) CKD stage 3 due to type 2 diabetes mellitus: Code(s): E11.22 - Type 2 diabetes mellitus with diabetic chronic kidney disease; N18.30 - Chronic kidney disease, stage 3 unspecified (2) Hypertension: Code(s): I10 - Essential (primary) hypertension Qualifiers: Hypertension type: primary hypertension Qualified Code(s): I10 - Essential (primary) hypertension Plan Sindi has 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 Her renal biopsy in the past showed significant disease from diabetes and hypertension. She had been off angiotensin receptor claude. I wanted her to go back on losartan 25 mg daily which she did not want to , given her potassium may go up. She should be on a low-potassium diet. I discussed with her that in the event if her serum potassium goes up on initiating ARB, we could manage that with medications. She wants to think about it. She is on diuretics. She is tolerating Jardiance very well. She should maintain a tighter blood sugar control. She should cut back sodium in the diet and lose weight. She should maintain good hydration and avoid nonsteroidal anti-inflammatories. She is hypervolemic. I reduced her lasix to 40 mg alternating with 20 mg every other day. I have ordered follow up blood work. She may need addition of Imdur and ECHO. I did not make any other medication changes today. Follow up appointment given Orders: Orders Creatinine Today E11.22 - Type 2 diabetes mellitus with diabetic chronic kidney disease, I10 - Essential (primary) hypertension, N18.30 - Chronic kidney disease, stage 3 unspecified Electrolytes Today E11.22 - Type 2 diabetes mellitus with diabetic chronic kidney disease, I10 - Essential (primary) hypertension, N18.30 - Chronic kidney disease, stage 3 unspecified Blood Urea Nitrogen Today E11.22 - Type 2 diabetes mellitus with diabetic chronic kidney disease, I10 - Essential (primary) hypertension, N18.30 - Chronic kidney disease, stage 3 unspecified Coding Level of Care Code Est Pt Level 4 (87682) Diagnoses CKD stage 3 due to type 2 diabetes mellitus E11.22; N18.30 Primary hypertension I10 Hypertension type: primary hypertension Results Reviewed Nephrology Results: Hgb 12.5 g/dl (12.0-16.0) 10/10/23 WBC 8.3 X10*3/uL (4.8-10.8) 10/10/23 Plt Count 220 X10*3/uL (160-400) 10/10/23 Sodium 137 mmol/L (135-145) 10/10/23 Potassium 4.7 mmol/L (3.3-5.1) 10/10/23 Chloride 100 mmol/L (96-108) 10/10/23 Carbon Dioxide 28 mmol/L (22-29) 10/10/23 BUN 41 mg/dL (9-16) H 10/10/23 Creatinine 1.92 mg/dL (0.5-1.4) H 10/10/23 Calcium 9.3 mg/dL (8.4-10.2) 08/16/23 Urine Creatinine 46.22 mg/dL 10/10/23 Protein/Creatinin Ratio 0.50 (<0.2) H 10/10/23
== END 2023-10-12 10:49 | disposition home or self-care (01) ==
PROVIDERS: PCP Internal Medicine; Visit Provider Internal Medicine Nephrology
DX: E11.22 Type 2 diabetes mellitus with diabetic chronic kidney disease (principal); N18.30 Chronic kidney disease, stage 3 unspecified; I10 Essential (primary) hypertension
CPT/HCPCS: 99214

== ENCOUNTER → 2023-10-12 10:16 | Outpatient (BNVA) | payer OTHER, SELFPAY | PROVIDERS: PCP Internal Medicine; Visit Provider Internal Medicine Nephrology | DX: E11.22 Type 2 diabetes mellitus with diabetic chronic kidney disease (principal); E11.65 Type 2 diabetes mellitus with hyperglycemia; I10 Essential (primary) hypertension; N18.30 Chronic kidney disease, stage 3 unspecified; Z86.73 Personal history of transient ischemic attack (TIA), and cerebral infarction without residual deficits; Z79.4 Long term (current) use of insulin | CPT/HCPCS: 99212 ==

== ENCOUNTER 2023-10-13 12:41 | Outpatient (AMB) | payer OTHER, SELFPAY ==
[2023-10-13 12:44] VITALS: BMI 41.8
--- NOTE | 2023-10-13 12:44 | A.OFFVIS_ITS ---
Intake VS Expanded 10/13/23 12:44 10/24/23 09:24 Height 4 ft 5 in 4 ft 5 in Weight 167 lb 2.6 oz 167 lb BMI 41.8 41.8 Intake Visit Reasons: f/u Type 2 DM/CONFIRMED Allergies metformin [From GLUCOPHAGE] Adverse Reaction (Unknown, Verified 10/12/23 10:23) DIARRHEA HPI Nutrition Presentation Details Pt presents for MNT for T2DM with CKD stage 3 . Pt was referred by Dr. Hernandez, outpatient program coordinator Pt reports participating at [facility] and has breakfast and lunch there. Pt reports having a BUS STARTER who prepares meals for dinner and helps with grocery shopping. Pt has questions regarding low sodium foods , Pt verbalizes relationship of foods/starches/sugars to blood glucose level. Pt has pending appt with CDE Typical meal intake: B: 1-2 slices of wheat bread ( or hot cereal or piece of cake L: sandwich or rice/pork/beans and salad snack cheese and crackers dinner: root veg soup physical activity: daily life activities ETOh/SMoking: denies FFK-Ukumhms-Wm.Jeor Equation Height 4 ft 5 in Weight 167 lb Resting Metabolic Rate 1087.80 Calculated Activity Level Sedentary Calories Needed to Maintain Weight 1305.36 Diagnosis Nutrition problem #1 altered nutrition labs As related to (etiology) #1 diagnosis As evidenced by (sign/symptom) #1 abnormal lab values (8.4% on 09/2023) Most Recent Diabetes Results: Microalb/Creat Ratio 479.2 ug/mg cr (<30) H 09/30/23 Cholesterol 143 mg/dL (<200) 09/30/23 HDL Cholesterol 69 mg/dL (>40) 09/30/23 Triglycerides 50 mg/dL (<150) 09/30/23 Creatinine 1.92 mg/dL (0.5-1.4) H 10/10/23 Blood Urea Nitrogen 41 mg/dL (9-16) H 10/10/23 Sodium 137 mmol/L (135-145) 10/10/23 Potassium 4.7 mmol/L (3.3-5.1) 10/10/23 Chloride 100 mmol/L (96-108) 10/10/23 Carbon Dioxide 28 mmol/L (22-29) 10/10/23 AST 24 U/L (5-31) 10/10/23 ALT 21 U/L (0-31) 10/10/23 Albumin 3.9 g/dL (3.5-5.0) 10/10/23 [facility] Medical History (Updated 09/28/23 @ 11:22 by Garrison Silverio MD) Snoring Dyspnea on exertion PB (obstructive sleep apnea) Hypoxemia Breast calcification, right Obesity due to excess calories Peripheral nerve facial nerve paralysis History of CVA (cerebrovascular accident) GERD (gastroesophageal reflux disease) Asthma Morbid obesity Hypertension CKD stage 3 due to type 2 diabetes mellitus 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 Diabetic nephropathy associated with type 2 diabetes mellitus Dyslipidemia Diabetes type 2, uncontrolled Surgical History Hx of tubal ligation Hx of bilateral cataract extraction Hx of hysterectomy History of appendectomy Family History Father Cancer Mother Diabetes mellitus Social History Household Members: None Housing: Apartment Do you presently have visiting nurse or other home services: Yes Alcohol intake: never Patient Tobacco Use Status: Never used Tobacco Second Hand Smoke Exposure: No Advance Directives Date on File: 11/26/20 service: No Current occupational status: disabled Current occupation: rt handed Female Reproductive History Menstrual Age of Menarche: 12 Assessment & Plan Assessment & Plan (1) Diabetes type 2, uncontrolled: Comment: IDDM Code(s): E11.65 - Type 2 diabetes mellitus with hyperglycemia Plan: Wt: 76 Kg ( 09/2023 ) Est kcal needs as per MSJ: 1300 (40% carb, 30% protein/fat) Est fluid needs as per 25 ml/d: 1900 Est prot per day as per 1 g/kg bw: 76 76 Recommend fiber intake : 8-10 g per day and gradually increase to 25-28 g per day for women and 35-38 g for men or as tolerated Recommend sodium intake per day : less than 1500 mg Educated patient on: ( R = reviewed V = verbalizes understanding N/R = needs review N/A = not applicable * Food sources of carbohydrate, adequate serving sizes and its role in various health conditions: NR * Lean protein sources of foods: V * Differences between types of fats and role in diet (mono on saturated fat fatty acids, saturated fatty acids, trans fats): NR * Food sources of sodium in salt and healthy modifications for heart health in kidney health: R * Hypoglycemia protocol (rule of 15): R * Dietary prevention of Hyperglycemia: R Patient Instructions: Choose low sodium sources of foods - unsalted cracker, fruits in place of pastries, choose low sodium seasonings, low sodiums sauces Work on balancing your meals, following healthy plate method at dinner, reduce carbs to 45 g at meal time Coding Level of Care Code Nutr Indiv Intake (67246) Diagnoses Diabetes type 2, uncontrolled E11.65 Time Spent (min) 30
[2023-10-24 09:24] VITALS: BMI 41.8
== END 2023-10-13 13:41 | disposition home or self-care (01) ==
PROVIDERS: PCP Internal Medicine; Visit Provider Dietitian, Registered
DX: E11.65 Type 2 diabetes mellitus with hyperglycemia (principal)

== ENCOUNTER 2023-10-13 12:41 | Outpatient (AMB) | payer OTHER, SELFPAY ==
--- NOTE | 2023-10-13 13:31 | A.OFFVIS_ITS ---
Intake Intake Visit Reasons: f/u Type 2 DM-confirmed Undercover Agent Required: Yes Undercover Agent Language: Care Partner Name: Trinh [facility] Accompanied by: Self / Same As Patient Allergies metformin [From GLUCOPHAGE] Adverse Reaction (Unknown, Verified 10/12/23 10:23) DIARRHEA HPI Comprehensive Diabetes Asmnt Most Recent Diabetes Results: Hemoglobin A1c 9.8 % 05/21/19 Microalb/Creat Ratio 479.2 ug/mg cr (<30) H 09/30/23 Cholesterol 143 mg/dL (<200) 09/30/23 HDL Cholesterol 69 mg/dL (>40) 09/30/23 Triglycerides 50 mg/dL (<150) 09/30/23 Creatinine 1.92 mg/dL (0.5-1.4) H 10/10/23 Blood Urea Nitrogen 41 mg/dL (9-16) H 10/10/23 Sodium 137 mmol/L (135-145) 10/10/23 Potassium 4.7 mmol/L (3.3-5.1) 10/10/23 Chloride 100 mmol/L (96-108) 10/10/23 Carbon Dioxide 28 mmol/L (22-29) 10/10/23 Calcium 9.3 mg/dL (8.4-10.2) 08/16/23 AST 24 U/L (5-31) 10/10/23 ALT 21 U/L (0-31) 10/10/23 Total Protein 6.9 g/dL (6.5-8.0) 09/06/22 Albumin 3.9 g/dL (3.5-5.0) 10/10/23 [facility] Medical History (Updated 09/28/23 @ 11:22 by Garrison Silverio MD) Snoring Dyspnea on exertion PB (obstructive sleep apnea) Hypoxemia Breast calcification, right Obesity due to excess calories Peripheral nerve facial nerve paralysis History of CVA (cerebrovascular accident) GERD (gastroesophageal reflux disease) Asthma Morbid obesity Hypertension CKD stage 3 due to type 2 diabetes mellitus retirement (current) use of insulin Diabetic nephropathy associated with type 2 diabetes mellitus Dyslipidemia Diabetes type 2, uncontrolled Surgical History Hx of tubal ligation Hx of bilateral cataract extraction Hx of hysterectomy History of appendectomy Family History Father Cancer Mother Diabetes mellitus Social History Household Members: None Housing: Apartment Do you presently have visiting nurse or other home services: Yes Alcohol intake: never Patient Tobacco Use Status: Never used Tobacco Second Hand Smoke Exposure: No Advance Directives Date on File: 11/26/20 service: No Current occupational status: disabled Current occupation: rt handed Female Reproductive History Menstrual Age of Menarche: 12 Assessment & Plan Assessment & Plan (1) Diabetes type 2, uncontrolled: Comment: IDDM Code(s): E11.65 - Type 2 diabetes mellitus with hyperglycemia Plan: Learning objectives: The patient was provided with verbal and written education on the following topics as outlined below. Assess patient education level/literacy/barriers Patient questions/concerns, patient's last A1c at visit with Dr. Aly on 10/04/2023 8.4% patient using freestyle Blake to test glucose levels Patient's average glucose for the past 2 weeks 157 mg/dL Patient above target 30% Patient at target 68% Patient below target 2% Patient has started Mounjaro 2.5 mg, reports that this is increased bowel movements, but denies diarrhea Patient reports that she can tolerate increased bowel movements because she used to suffer from constipation Instructed patient if bowel movements become more frequent or there is an increase in loose stools that is hindering her lifestyle to report this to provider Patient is having overnight hypoglycemia, at last visit with Dr. Jermain Aly instructed patient to reduce Lantus from 20 units to 15 units however patient has continued Lantus 20 units daily. Instructed patient to reduce Lantus to 15 units daily as directed at last visit Patient is also taking Jardiance 10 mg daily Patient denies missing medication The patient met all learning objectives and was able to verbalize understanding and provide teach back of education topics discussed . The patient was provided with the opportunity to ask questions and all questions were answered. Topics covered in today?s session included: Medications (If applicable) * Name of medication? * Dosing/administration instructions? * Mechanism of action? * Potential side effects? * Potential adverse reaction and appropriate treatment? * Review onset, peak, duration Assess for concerns re: insurance coverage, cost, barriers to compliance Insulin/Injectables (If applicable) * Storage/care of insulin?? * Injection sites? * Site rotation? * Onset, peak, duration * Drawing up insulin? * Injecting insulin/other injectables? * Sharps disposal Continuous blood glucose monitoring (if applicable) Hypoglycemia and Hyperglycemia * Signs and symptoms? * Causes?? * Treatment? * Preventing hypoglycemia? * When to seek medical attention * Blood glucose targets and how you feel when your blood glucose is in and out of your target ranges. * Monitoring and knowing your A1C. * What can make blood glucose go up and down and preventing high and low blood glucose. * Review of blood sugar targets in expected goal range and outside of expected goal range. * Problem solving and preventing hyper/hypoglycemia. * Sick day management of diabetes. * Using blood sugar results in decision making process in managing diabetes. ?Patient was receptive to information provided and participated in the discussion. Asked?appropriate questions and demonstrated good understanding of the topics discussed.? ? Educational Materials: The patient was provided with the following written educational materials: How to treat hypoglycemia handout in [employer] Goal: Patient will use rule of 15s to treat hypoglycemia Patient Response to instructions: Comprehension of Instructions: Good Readiness to make changes:? Contemplation How confident they feel about making changes: Positive Patient Instructions: El plan es disminuir Lantus a 20 unidades y a 15 unidades si se produce hipoglucemia continua gagandeep la noche. Seguimiento con enfermera de educaci?n diab?fartun Coding Level of Care Code Est Pt Level 1 (96786) Diagnoses Diabetes type 2, uncontrolled E11.65
== END 2023-10-13 13:44 | disposition home or self-care (01) ==
PROVIDERS: PCP Internal Medicine; Visit Provider Registered Nurse Diabetes Educator
DX: E11.65 Type 2 diabetes mellitus with hyperglycemia (principal)

== ENCOUNTER → 2023-10-13 12:41 | Outpatient (BNVA) | payer OTHER, SELFPAY | PROVIDERS: PCP Internal Medicine; Visit Provider Dietitian, Registered | DX: E11.65 Type 2 diabetes mellitus with hyperglycemia (principal); E11.22 Type 2 diabetes mellitus with diabetic chronic kidney disease; N18.30 Chronic kidney disease, stage 3 unspecified; Z71.89 Other specified counseling | CPT/HCPCS: 97802; 99211 ==

== ENCOUNTER 2023-10-24 12:18 | Outpatient (REF) | payer OTHER, SELFPAY ==
--- NOTE | ~2023-10-24 | MM_ITS ---
EXAMINATION: MM SCREENING DIGITAL BREAST TOMOSYNTHESIS, BILATERAL CLINICAL INFORMATION: Screening. Asymptomatic. COMPARISON: Mammography: This study is compared with prior exams dating back to 2018. TECHNIQUE: Digital breast tomosynthesis is performed in both the craniocaudal and mediolateral oblique views along with computer-aided detection (CAD). Synthesized 2D images are generated from the tomosynthesis. FINDINGS: There are scattered areas of fibroglandular density (ACR BI-RADS breast composition Category b). There are no significant masses, abnormal calcifications, or other abnormalities. There is a tissue marker in the medial aspect of the right breast from prior benign percutaneous biopsy. MM/MM tomosynthesis screening BI IMPRESSION: No mammographic evidence of malignancy. ASSESSMENT: BI-RADS BI-RADS 2 - Benign Findings RECOMMENDATION: Routine annual mammography screening. 1 year F/U This examination should not preclude the clinical evaluation of a suspicious palpable abnormality. This patient's information was entered into a reminder system with a target due date for their next mammogram.
== END 2023-10-24 12:19 | disposition home or self-care (01) ==
LOC: HO.MAMMO 12:18
PROVIDERS: PCP Internal Medicine; Visit Provider Internal Medicine
DX: Z12.31 Encounter for screening mammogram for malignant neoplasm of breast (principal)
CPT/HCPCS: 77063; 77067

== ENCOUNTER → 2023-10-24 12:30 | Outpatient (BNV) | payer OTHER, SELFPAY | PROVIDERS: PCP Internal Medicine; Visit Provider Radiology Diagnostic Radiology | DX: Z12.31 Encounter for screening mammogram for malignant neoplasm of breast (principal) | CPT/HCPCS: 77063; 77067 ==

== ENCOUNTER 2023-11-22 15:56 | Outpatient (AMB) | payer OTHER, SELFPAY ==
--- NOTE | 2023-11-22 16:26 | MHC.AMDMED ---
Intake Intake Visit Reasons: T2DM Quickbooks Bookkeeper Required: Yes Quickbooks Bookkeeper Language: Head Kiln Operator Name: Trinh [facility] [place] Information Interpreted: non-clinical & clinical Accompanied by: Daughter Allergies metformin [From GLUCOPHAGE] Adverse Reaction (Unknown, Verified 10/12/23 10:23) DIARRHEA HPI Comprehensive Diabetes Asmnt Most Recent Diabetes Results: Hemoglobin A1c 9.8 % 05/21/19 Microalb/Creat Ratio 479.2 ug/mg cr (<30) H 09/30/23 Cholesterol 143 mg/dL (<200) 09/30/23 HDL Cholesterol 69 mg/dL (>40) 09/30/23 Triglycerides 50 mg/dL (<150) 09/30/23 Creatinine 1.92 mg/dL (0.5-1.4) H 10/10/23 Blood Urea Nitrogen 41 mg/dL (9-16) H 10/10/23 Sodium 137 mmol/L (135-145) 10/10/23 Potassium 4.7 mmol/L (3.3-5.1) 10/10/23 Chloride 100 mmol/L (96-108) 10/10/23 Carbon Dioxide 28 mmol/L (22-29) 10/10/23 Calcium 9.3 mg/dL (8.4-10.2) 08/16/23 AST 24 U/L (5-31) 10/10/23 ALT 21 U/L (0-31) 10/10/23 Total Protein 6.9 g/dL (6.5-8.0) 09/06/22 Albumin 3.9 g/dL (3.5-5.0) 10/10/23 [facility] Medical History (Updated 09/28/23 @ 11:22 by Garrison Silverio MD) Snoring Dyspnea on exertion PB (obstructive sleep apnea) Hypoxemia Breast calcification, right Obesity due to excess calories Peripheral nerve facial nerve paralysis History of CVA (cerebrovascular accident) GERD (gastroesophageal reflux disease) Asthma Morbid obesity Hypertension CKD stage 3 due to type 2 diabetes mellitus [facility] r[facility] (current) use of insulin Diabetic nephropathy associated with type 2 diabetes mellitus Dyslipidemia Diabetes type 2, uncontrolled Surgical History Hx of tubal ligation Hx of bilateral cataract extraction Hx of hysterectomy History of appendectomy Family History Father Cancer Mother Diabetes mellitus Social History Household Members: None Housing: Apartment Do you presently have visiting nurse or other home services: Yes Alcohol intake: never Patient Tobacco Use Status: Never used Tobacco Second Hand Smoke Exposure: No Advance Directives Date on File: 11/26/20 service: No Current occupational status: disabled Current occupation: rt handed Female Reproductive History Menstrual Age of Menarche: 12 Assessment & Plan Assessment & Plan (1) CKD stage 3 due to type 2 diabetes mellitus: Code(s): E11.22 - Type 2 diabetes mellitus with diabetic chronic kidney disease; N18.30 - Chronic kidney disease, stage 3 unspecified Plan: Personal Continuous Glucose Monitor: Patients CGM information reviewed Reviewed patient's sensor data: Hypoglycemia: ? 2% Hyperglycemia:? 38% Time in Range:? 60% Average glucose for the last 2 weeks? 169 mg/dL Patient appears to be having postprandial hypoglycemia, after midday meal. Discussed how patient doses Humalog. Patient reports she frequently takes Humalog 30 minutes after meals, when she forgets to take it before meals. Patient also reports she takes 18-20 units based on glucose, hi reviewed with patient that glucose will be higher after she eats if she has not taken insulin, and delay in taking Humalog after meals can lead to hypoglycemia. Reviewed with patient's simple sliding scale and how to use. Patient also has reduce Lantus from 20 units to 15 units Patient reports she has incontinence of stool while on Mounjaro 2.5 mg recommended to patient she stopped Mounjaro 2.5 mg and discuss alternate medication with Dr. Aly at next visit. Reminded patient that to check finger sticks if symptoms do not match sensor reading. Discussed lag time between finger stick and sensor data.? Patient able to insert sensor independently at home without issue.? Patient will follow-up with natural resource officer in 1 month Patient Instructions: Humalog escala de la siguiente manera Menos 150 no insulina 151-200 -14 unidades 201-250 ?- 16 unidades Mas de 250?-?18 unidades Coding Level of Care Code Est Pt Level 1 (88378) Diagnoses CKD stage 3 due to type 2 diabetes mellitus E11.22; N18.30
== END 2023-11-22 16:32 | disposition home or self-care (01) ==
PROVIDERS: PCP Internal Medicine; Visit Provider Registered Nurse Diabetes Educator
DX: E11.22 Type 2 diabetes mellitus with diabetic chronic kidney disease (principal); N18.30 Chronic kidney disease, stage 3 unspecified

== ENCOUNTER → 2023-11-22 15:56 | Outpatient (BNVA) | payer OTHER, SELFPAY | PROVIDERS: PCP Internal Medicine; Visit Provider Registered Nurse Diabetes Educator | DX: E11.22 Type 2 diabetes mellitus with diabetic chronic kidney disease (principal); N18.30 Chronic kidney disease, stage 3 unspecified | CPT/HCPCS: 99211 ==

== ENCOUNTER 2023-12-05 07:56 | Outpatient (REF) | payer OTHER, SELFPAY ==
[2023-12-05 10:30] LABS: Anion Gap 17 (12-20); Blood Urea Nitrogen 44 mg/dL (9-16); Carbon Dioxide 28 mmol/L (22-29); Chloride 105 mmol/L (96-108); Estimated Glomerular Filt Rate 34; Potassium 5.3 mmol/L (3.3-5.1); Sodium 145 mmol/L (135-145)
== END 2023-12-05 07:57 | disposition home or self-care (01) ==
LOC: HO.10HDL 07:56
PROVIDERS: Visit Provider Internal Medicine Nephrology
DX: I10 Essential (primary) hypertension (principal); E11.22 Type 2 diabetes mellitus with diabetic chronic kidney disease; N18.30 Chronic kidney disease, stage 3 unspecified
CPT/HCPCS: 36415; 80051; 82565; 84520

== ENCOUNTER 2023-12-07 09:12 | Outpatient (AMB) | payer OTHER, SELFPAY ==
--- NOTE | 2023-12-07 09:49 | HO.NEPHOV_ITS ---
Vital Signs 12/07/23 09:51 Height 4 ft 5 in Weight 166 lb BMI 41.5 BP 130/60 Blood Pressure Location Rt brachial Position Sitting Pulse 60 Pulse Source Pulse Oximeter Pulse Oximetry (%) 96 Oxygen Delivery Method Room Air Intake Visit Reasons: diabetes mellitus/ 2 MO FU/ Confirmed w/daughter Starch And Prosize Mixer Required: Yes Starch And Prosize Mixer Name: Sindi Pastrana Accompanied by: Daughter Allergies metformin [From GLUCOPHAGE] Adverse Reaction (Unknown, Verified 12/07/23 09:55) DIARRHEA HPI Comments Details: I had the privilege of seeing Sindi in follow-up of her chronic kidney disease due to biopsy-proven diabetic nephropathy. Her blood sugar control continues to be labile. She has history of cerebrovascular accident. She has hypertension. She had no deficits from CVA. Blood pressure is better controlled. She has not good with her diet and weight loss. She is tolerating Jardiance without any side effects . She denies using any nonsteroidal anti-inflammatories but consumes normal sodium and has a normal diet. she was on angiotensin receptor claude in the past which she did not tolerate very well. She denies chest pain, shortness of breath, paroxysmal nocturnal dyspnea, orthopnea, pedal edema, urinary symptoms or orthostasis. She tries to maintain herself with good hydration. She has been having facial swelling and pedal edema which resolved with diuresis. She is not very compliant with low sodium diet. [facility] Medical History (Updated 09/28/23 @ 11:22 by Garrison Silverio MD) Snoring Dyspnea on exertion PB (obstructive sleep apnea) Hypoxemia Breast calcification, right Obesity due to excess calories Peripheral nerve facial nerve paralysis History of CVA (cerebrovascular accident) GERD (gastroesophageal reflux disease) Asthma Morbid obesity Hypertension CKD stage 3 due to type 2 diabetes mellitus [facility] (current) use of insulin Diabetic nephropathy associated with type 2 diabetes mellitus Dyslipidemia Diabetes type 2, uncontrolled Surgical History Hx of tubal ligation Hx of bilateral cataract extraction Hx of hysterectomy History of appendectomy Family History Father Cancer Mother Diabetes mellitus Social History Household Members: None Housing: Apartment Do you presently have visiting nurse or other home services: Yes Alcohol intake: never Patient Tobacco Use Status: Never used Tobacco Second Hand Smoke Exposure: No Advance Directives Date on File: 11/26/20 service: No Current occupational status: disabled Current occupation: rt handed Female Reproductive History Menstrual Age of Menarche: 12 Physical Exam Vital Signs: Last Vital Signs Pulse 60 12/07/23 09:51 BP 150/60 H 12/07/23 09:51 Pulse Ox 96 12/07/23 09:51 Oxygen Delivery Method Room Air 12/07/23 09:51 BMI result Body Mass Index 41.5 Const General: comfortable and no acute distress Orientation/consciousness: patient oriented x3 HEENT Head: Yes normocephalic Mouth: Normal oral and palatal mucosa present Eyes EOM: EOMs intact bilaterally Neck Neck: Yes supple Resp Auscultation: clear to auscultation bilaterally Cardio Jugular venous distension: no JVD Rate: regular rate GI Palpation (GI): Soft to palpation Auscultation: normal bowel sounds General: Yes no CVA tenderness Back/Spine/Pelvis Back: no CVA tenderness Skin General skin exam: no rashes or lesions noted Neuro General: patient oriented x3 and moves all extremities Results Reviewed Nephrology Results: Hgb 12.5 g/dl (12.0-16.0) 10/10/23 WBC 8.3 X10*3/uL (4.8-10.8) 10/10/23 Plt Count 220 X10*3/uL (160-400) 10/10/23 Sodium 145 mmol/L (135-145) 12/05/23 Potassium 5.3 mmol/L (3.3-5.1) H 12/05/23 Chloride 105 mmol/L (96-108) 12/05/23 Carbon Dioxide 28 mmol/L (22-29) 12/05/23 BUN 44 mg/dL (9-16) H 12/05/23 Creatinine 1.52 mg/dL (0.5-1.4) H 12/05/23 Urine Creatinine 46.22 mg/dL 10/10/23 Protein/Creatinin Ratio 0.50 (<0.2) H 10/10/23 Assessment & Plan Assessment & Plan (1) CKD stage 3 due to type 2 diabetes mellitus: Code(s): E11.22 - Type 2 diabetes mellitus with diabetic chronic kidney disease; N18.30 - Chronic kidney disease, stage 3 unspecified Category: Medical (2) Hypertension: Code(s): I10 - Essential (primary) hypertension Category: Medical Qualifiers: Hypertension type: primary hypertension Qualified Code(s): I10 - Essential (primary) hypertension Plan Sindi has chronic kidney disease stage 3 from diabetic hypertensive renal d isease. Her renal biopsy in the past showed significant disease from diabetes and hypertension. She had been off angiotensin receptor claude. I wanted her to go back on losartan 25 mg daily which she did not want to , given her potassium may go up. She should be on a low-potassium diet. I discussed with her that in the event if her serum potassium goes up on initiating ARB, we could manage that with medications. She wants to think about it. She is on diuretics. She is tolerating Jardiance very well. She should maintain a tighter blood sugar control. She should cut back sodium in the diet and lose weight. She should maintain good hydration and avoid nonsteroidal anti- inflammatories. She should continue lasix 40 mg alternating with 20 mg every other day. She is on Jardiance.I have ordered follow up blood work. She may need addition of Imdur and ECHO. I did not make any other medication changes today. Follow up appointment given Orders: Orders Blood Urea Nitrogen Today E11.22 - Type 2 diabetes mellitus with diabetic chronic kidney disease, I10 - Essential (primary) hypertension, N18.30 - Chronic kidney disease, stage 3 unspecified Creatinine Today E11.22 - Type 2 diabetes mellitus with diabetic chronic kidney disease, I10 - Essential (primary) hypertension, N18.30 - Chronic kidney disease, stage 3 unspecified Electrolytes Today E11.22 - Type 2 diabetes mellitus with diabetic chronic kidney disease, I10 - Essential (primary) hypertension, N18.30 - Chronic kidney disease, stage 3 unspecified Coding Level of Care Code Est Pt Level 4 (25995) Diagnoses CKD stage 3 due to type 2 diabetes mellitus E11.22; N18.30 Primary hypertension I10 Hypertension type: primary hypertension
[2023-12-07 09:51] VITALS: BP 130/60; PULSE 60; O2SAT 96; BMI 41.5
== END 2023-12-07 10:30 | disposition home or self-care (01) ==
PROVIDERS: PCP Internal Medicine; Visit Provider Internal Medicine Nephrology
DX: E11.22 Type 2 diabetes mellitus with diabetic chronic kidney disease (principal); N18.30 Chronic kidney disease, stage 3 unspecified; I10 Essential (primary) hypertension
CPT/HCPCS: 99214

== ENCOUNTER → 2023-12-07 09:12 | Outpatient (BNVA) | payer OTHER, SELFPAY | PROVIDERS: PCP Internal Medicine; Visit Provider Internal Medicine Nephrology | DX: E11.22 Type 2 diabetes mellitus with diabetic chronic kidney disease (principal); I12.9 Hypertensive chronic kidney disease with stage 1 through stage 4 chronic kidney disease, or unspecified chronic kidney disease; N18.30 Chronic kidney disease, stage 3 unspecified | CPT/HCPCS: 99212 ==

== ENCOUNTER 2023-12-19 17:45 | Emergency (ER) | payer OTHER, SELFPAY ==
--- NOTE | ~2023-12-19 | XR_ITS ---
EXAMINATION: XR CHEST CLINICAL INFORMATION: Cough and fever COMPARISON: 08/16/2023 TECHNIQUE: 2 views of the chest were obtained. FINDINGS: No significant abnormality is noted involving the heart, lungs, mediastinum, bony thorax or soft tissues. Some minimal basilar scarring is present.. XR/XR chest 2V IMPRESSION: Unremarkable examination.
[2023-12-19 18:20] VITALS: BP 159/54; PULSE 69; RESP 20; TEMP 37.2; O2SAT 95; BMI 40.2
--- NOTE | 2023-12-19 18:20 | ED_ITS ---
HPI - General Adult General Chief complaint: Upper Respiratory Symptoms Stated complaint: fever, not feeling well Time Seen by Provider: 12/19/23 19:34 Source: patient Mode of arrival: ambulatory Limitations: no limitations History of Present Illness ED Provider: shante KIMBLE narrative: Patient with history of hypertension CKD diabetes PB has been coughing feeling weak lethargic since yesterday reported subjective fever not eating or drinking much for last 24 hours patient does visited [place] stayed there for 1 week came back yesterday could not check her blood sugar as her Dexcom came off while taking shower patient is coughing a lot mostly dry Related Data Home Medications ?Medication ?Instructions ?Recorded ?Confirmed metoprolol tartrate 25 mg tablet 25 mg PO BID 06/16/20 05/04/23 aspirin 81 mg tablet,delayed 81 mg PO DAILY 09/19/20 05/04/23 release ascorbic acid (vitamin C) 250 mg 250 mg PO DAILY 11/26/20 05/04/23 tablet (Vitamin C) hydralazine 25 mg tablet 25 mg PO BID 11/26/20 05/04/23 biotin 1,000 mcg chewable tablet 1,000 mcg PO DAILY 08/17/23 empagliflozin 10 mg tablet 10 mg PO DAILY 08/17/23 (Jardiance) Previous Rx's ?Medication ?Instructions ?Recorded cholecalciferol (vitamin D3) 50 50 mcg PO DAILY #90 caps 01/27/21 mcg (2,000 unit) capsule acetaminophen 500 mg tablet 1,000 mg (2 x 500 mg) PO QID PRN 04/15/21 (Tylenol Extra Strength) fever or pain #14 tabs blood sugar diagnostic (FreeStyle #100 ea 08/21/21 Lite Strips) gabapentin 300 mg capsule 300 mg PO BEDTIME #90 caps 08/21/21 lancets 33 gauge (TRUEplus Lancets) #100 ea 08/21/21 Novolog FlexPen U-100 Insulin 100 18 - 20 unit (0.18 - 0.2 mL) 10/28/21 unit/mL (3 mL) subcutaneous subcut TID 90 days #45 mL (insulin aspart U-100) atorvastatin 40 mg tablet 40 mg PO BEDTIME #90 tabs 12/15/21 flash glucose scanning reader #1 ea 06/13/23 (FreeStyle Blake 2 [place]) pen needle, diabetic 32 gauge x #400 ea 11/20/23 5/32 (BD Kelly 2nd Gen Pen Needle) insulin glargine 100 unit/mL (3 20 unit (0.2 mL) subcut BEDTIME 90 10/04/23 mL) subcutaneous pen days #18 mL furosemide 20 mg tablet 40 mg (2 x 20 mg) PO DAILY #180 11/14/23 tabs flash glucose sensor (FreeStyle #2 kits 12/06/23 Blake 2 Sensor kit) tirzepatide 2.5 mg/0.5 mL 2.5 mg (0.5 mL) subcut QWEEK 90 12/14/23 subcutaneous pen injector days #6.5 mL (Mounjaro) azithromycin 250 mg tablet See Rx Instructions PO .COMPLEX #6 12/19/23 (Zithromax Z-Esdras) tabs benzonatate 200 mg capsule 200 mg PO TID PRN cough #20 caps 12/19/23 cefuroxime axetil 500 mg tablet 500 mg PO BID 10 days #20 tabs 12/19/23 Allergies Allergy/AdvReac Type Severity Reaction Status Date / Time metformin [From GLUCOPHAGE] AdvReac Unknown DIARRHEA Verified 12/19/23 18:25 Review of Systems 2 Review of Systems: Yes all other systems are reviewed and are negative [facility] Past Medical History Medical History Snoring Dyspnea on exertion PB (obstructive sleep apnea) Hypoxemia Breast calcification, right Obesity due to excess calories Peripheral nerve facial nerve paralysis History of CVA (cerebrovascular accident) GERD (gastroesophageal reflux disease) Asthma Morbid obesity Hypertension 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 Diabetic nephropathy associated with type 2 diabetes mellitus Dyslipidemia Diabetes type 2, uncontrolled Surgical History Hx of tubal ligation Hx of bilateral cataract extraction Hx of hysterectomy History of appendectomy Family History Family History Father Cancer Mother Diabetes mellitus Social History Social History Household Members: None Housing: Apartment Do you presently have visiting nurse or other home services: Yes Alcohol intake: never Patient Tobacco Use Status: Never used Tobacco Second Hand Smoke Exposure: No Advance Directives: Yes Advance Directives on File: Yes Advance Directives Date on File: 11/26/20 Do you have a plan to hurt others: No Plan service: No Current occupational status: disabled Current occupation: rt handed Physical Exam ED Vital Signs: Vital Signs - 24 hr 12/19/23 18:20 12/19/23 22:32 12/20/23 00:33 Temperature 98.9 F 99.5 F 99.4 F Pulse Rate 69 72 71 Respiratory Rate 20 20 16 Blood Pressure 159/54 H 158/56 H 157/42 H Pulse Oximetry 95 97 93 Oxygen Delivery Method Room Air Room Air Room Air 12/20/23 00:40 12/20/23 00:41 Temperature 99.4 F 99.4 F Pulse Rate 71 71 Respiratory Rate 16 16 Blood Pressure 157/42 H 157/42 H Pulse Oximetry 93 93 Oxygen Delivery Method Room Air Room Air BMI result Body Mass Index 40.2 Appearance: Alert. Oriented X3. No acute distress. Eyes: PERRLA, No Nystagmus ENT: Pharynx normal. Oral Mucosa moist Neck: Normal inspection. Neck supple. CVS: Normal heart rate and rhythm. Pulses normal. Respiratory: No respiratory distress. Equal air entry bilateral, no wheezing/rales/rhonchi occasional cough Abdomen: Soft and nontender. Bowel sounds are present, no mass palpable, no CVA tenderness Skin: Skin warm and dry. Normal skin color. Normal skin turgor. Extremities: No lower extremity edema. No calf tenderness Neuro: Oriented X 3. No motor deficit. No sensory deficit.No cerebellar signs , cranial nerves II-XII intact Course Course Course Narrative: This is a rapid medical exam performed by Srinivas Chawla NP: Additional HPI, ROS, PE not included below will be deferred to primary provider. Patient is a 73-year-old female with history of HTN, CKD stage 3, T2DM, PB, dyslipidemia presenting to the ED with complaint of coughing, dizziness/off balance since yesterday. Family reports patient has been drowsy and shaky today, subjective fevers. Took Covid test at home which was negative. Plan: viral swabs, labs, cxr Medications Administered Discontinued Medications Generic Name Dose Route Start Last Admin Trade Name Freq PRN Reason Stop Dose Admin Acetaminophen 650 mg 12/19/23 19:54 12/19/23 20:09 Acetaminophen 325 Mg Tablet PO 12/19/23 19:55 650 mg ONCE ONE Administration Sodium Chloride 1,000 mls @ 999 mls/hr 12/19/23 19:44 12/19/23 21:11 Ns IV 12/19/23 20:44 Infused .Q1H1M ONE Infusion Ceftriaxone Sodium 1 gm/ 50 mls @ 100 mls/hr 12/19/23 20:31 12/19/23 21:44 Sodium Chloride IV 12/19/23 21:00 Infused ONCE ONE Infusion Insulin Human Lispro 12 unit 12/19/23 19:44 12/19/23 20:10 Insulin Lispro 100 Unit/Ml 3 Ml Vial SUBCUT 12/19/23 19:45 12 unit ONCE ONE Administration Medical Decision Making Medical Decision Making [facility] Narrative: Patient diabetic with recent travel to comes here with cough thoughts odor to her hyperglycemia for 43 patient received insulin and IV fluids woke up felt much better was also given antibiotic for bronchitis Differential Diagnosis Differential Diagnoses: The differential diagnosis associated with the presentation includes Admission/Observation Consideration of admission/observation: Escalation of care including admission/observation considered Lab Data [facility] Lab Attestation statement: I reviewed the patient's lab results. 12/19/23 18:57 12/19/23 18:57 Labs: Lab Results 12/19/23 12/19/23 12/19/23 Range/Units 18:57 19:00 20:57 WBC 14.1 H (4.8-10.8) X10*3/uL RBC 3.45 L (4.20-5.50) X10*6/uL Hgb 10.4 L (12.0-16.0) g/dl Hct 31.4 L (37.0-47.0) % MCV 91.0 (80.0-98.0) fL MCH 30.1 (27.0-33.0) pg MCHC 33.1 (31.0-35.0) g/dl RDW 13.0 (11.0-16.0) % Plt Count 175 (160-400) X10*3/uL MPV 10.5 (9.4-12.3) fL Immature Gran % (Auto) 0.7 H (0.0-0.4) % Neut % (Auto) 86.5 H (45-73) % Lymph % (Auto) 4.3 L (20-40) % Bowman % (Auto) 8.4 (2-11) % Eos % (Auto) 0.0 (0-4) % Baso % (Auto) 0.1 (0-2) % Lymph # (Auto) 0.6 L (1.2-4.9) X10*3/uL Bowman # (Auto) 1.2 (0.1-1.2) X10*3/uL Eos # (Auto) 0.0 (0.0-0.4) X10*3/uL Baso # (Auto) 0.0 (0.0-0.2) X10*3/uL Abs Immat Gran (auto) 0.10 H (0.00-0.03) X10*3/uL Absolute Neuts (auto) 12.2 H (2.0-8.3) x10*3/uL Absolute Nucleated RBC 0.000 (0.0-0.012) X10*3/uL Nucleated RBC % (auto) 0.0 (0.0-0.2) /100WBC VBG pH 7.37 (7.32-7.43) VBG pCO2 47 mmHg VBG pO2 51 mmHg VBG HCO3 27 H (22-26) mmol/L VBG O2 Saturation 82.0 % VBG Base Excess 1.9 mmol/L Sodium 136 (135-145) mmol/L Potassium 4.6 (3.3-5.1) mmol/L Chloride 100 (96-108) mmol/L Carbon Dioxide 25 (22-29) mmol/L Anion Gap 16 (12-20) BUN 44 H (9-16) mg/dL Creatinine 1.81 H (0.5-1.4) mg/dL Estim Creat Clear Calc 31.0 Estimated GFR 27 POC Glucose (60-115) mg/dL Random Glucose 443 H* (60-115) mg/dL Lactic Acid 1.3 (0.5-2.0) mmol/L Calcium 9.5 (8.4-10.2) mg/dL Total Bilirubin 0.7 (0.0-1.0) mg/dL AST 24 (5-31) U/L ALT 28 (0-31) U/L Alkaline Phosphatase 96 (39-117) U/L B-Natriuretic Peptide 711 H (<100) pg/mL Total Protein 7.7 (6.5-8.0) g/dL Albumin 4.0 (3.5-5.0) g/dL Urine Color Urine Appearance Urine pH (5.0-9.0) Ur Specific [place] (1.005-1.025) Urine Protein (Neg-Trace) mg/dL Urine Glucose (UA) (Negative) mg/dL Urine Ketones (Negative) mg/dL Urine Blood (Negative) Urine Nitrite (Negative) Ur Leukocyte Esterase (Negative) Urine RBC (0-2) /HPF Urine WBC (0-5) /HPF Ur Squamous Epith Cells (0-2) /HPF Urine Bacteria (None Seen) Hyaline Casts (0-2) /LPF Influenza Type A (PCR) NEGATIVE (Negative) Influenza Type B (PCR) NEGATIVE (Negative) RSV RNA Qual (PCR) NEGATIVE (Negative) SARS-CoV-2 RNA (RT-PCR) NEGATIVE (Negative) 12/19/23 12/19/23 Range/Units 22:24 22:41 WBC (4.8-10.8) X10*3/uL RBC (4.20-5.50) X10*6/uL Hgb (12.0-16.0) g/dl Hct (37.0-47.0) % MCV (80.0-98.0) fL MCH (27.0-33.0) pg MCHC (31.0-35.0) g/dl RDW (11.0-16.0) % Plt Count (160-400) X10*3/uL MPV (9.4-12.3) fL Immature Gran % (Auto) (0.0-0.4) % Neut % (Auto) (45-73) % Lymph % (Auto) (20-40) % Bowman % (Auto) (2-11) % Eos % (Auto) (0-4) % Baso % (Auto) (0-2) % Lymph # (Auto) (1.2-4.9) X10*3/uL Bowman # (Auto) (0.1-1.2) X10*3/uL Eos # (Auto) (0.0-0.4) X10*3/uL Baso # (Auto) (0.0-0.2) X10*3/uL Abs Immat Gran (auto) (0.00-0.03) X10*3/uL Absolute Neuts (auto) (2.0-8.3) x10*3/uL Absolute Nucleated RBC (0.0-0.012) X10*3/uL Nucleated RBC % (auto) (0.0-0.2) /100WBC VBG pH (7.32-7.43) VBG pCO2 mmHg VBG pO2 mmHg VBG HCO3 (22-26) mmol/L VBG O2 Saturation % VBG Base Excess mmol/L Sodium (135-145) mmol/L Potassium (3.3-5.1) mmol/L Chloride (96-108) mmol/L Carbon Dioxide (22-29) mmol/L Anion Gap (12-20) BUN (9-16) mg/dL Creatinine (0.5-1.4) mg/dL Estim Creat Clear Calc Estimated GFR POC Glucose 311 H (60-115) mg/dL Random Glucose (60-115) mg/dL Lactic Acid (0.5-2.0) mmol/L Calcium (8.4-10.2) mg/dL Total Bilirubin (0.0-1.0) mg/dL AST (5-31) U/L ALT (0-31) U/L Alkaline Phosphatase (39-117) U/L B-Natriuretic Peptide (<100) pg/mL Total Protein (6.5-8.0) g/dL Albumin (3.5-5.0) g/dL Urine Color Yellow Urine Appearance Clear Urine pH 5.5 (5.0-9.0) Ur Specific [place] 1.020 (1.005-1.025) Urine Protein 100 (2+) H (Neg-Trace) mg/dL Urine Glucose (UA) >=1000 H (Negative) mg/dL Urine Ketones Negative (Negative) mg/dL Urine Blood Negative (Negative) Urine Nitrite Negative (Negative) Ur Leukocyte Esterase Negative (Negative) Urine RBC 0-2 (0-2) /HPF Urine WBC 0-5 (0-5) /HPF Ur Squamous Epith Cells 0-2 (0-2) /HPF Urine Bacteria None Seen (None Seen) Hyaline Casts 0-2 (0-2) /LPF Influenza Type A (PCR) (Negative) Influenza Type B (PCR) (Negative) RSV RNA Qual (PCR) (Negative) SARS-CoV-2 RNA (RT-PCR) (Negative) Independent Interpretation I performed an independent interpretation of an: Plain X-Ray Radiology Impression Discussion of test interpretation with radiology: I have reviewed the radiologist's reading. Discharge Plan Discharge Clinical Impression: Diabetes type 2, uncontrolled, Acute bronchitis Patient Disposition: Home, Self-Care Instructions: Acute Bronchitis (ED), Diabetic Hyperglycemia (ED) Additional Instructions: Take your insulin on time drink plenty of fluids Antibiotic as prescribed Check blood sugar before meals Follow with your PCP if not better Prescriptions: New benzonatate 200 mg capsule 200 mg PO TID PRN (Reason: cough) Qty: 20 0RF cefuroxime axetil 500 mg tablet 500 mg PO BID 10 Days Qty: 20 0RF azithromycin [Zithromax Z-Esdras] 250 mg tablet See Rx Instructions .ROUTE .COMPLEX Qty: 6 0RF Rx Instructions: For 250 mg dose pack: take 500 mg today (day 1), then 250 mg for 4 days (days 2-5) No Action cholecalciferol (vitamin D3) 50 mcg (2,000 unit) capsule 50 mcg PO DAILY Qty: 90 1RF insulin aspart U-100 [Novolog FlexPen U-100 Insulin] 100 unit/mL (3 mL) insulin pen 18 - 20 unit subcut TID 90 Days Qty: 45 2RF atorvastatin 40 mg tablet 40 mg PO BEDTIME Qty: 90 0RF Rx Instructions: SEND FUTURE REFILLS TO PCP furosemide 20 mg tablet 40 mg PO DAILY Qty: 180 3RF (DME) FreeStyle Blake 2 Sensor Kit See Rx Instructions .ROUTE .COMPLEX Qty: 2 4RF Dose Instruction: USE DIRECTED CHANGE EVERY 14 DAYS Rx Instructions: USE DIRECTED CHANGE EVERY 14 DAYS Mounjaro 2.5 mg/0.5 mL pen injector 2.5 mg subcut QWEEK 90 Days Qty: 6.5 1RF acetaminophen [Tylenol Extra Strength] 500 mg tablet 1,000 mg PO QID PRN (Reason: fever or pain) Qty: 14 0RF hydralazine 25 mg tablet 25 mg PO BID Rx Instructions: has not started ascorbic acid (vitamin C) [Vitamin C] 250 mg Tablet 250 mg PO DAILY metoprolol tartrate 25 mg tablet 25 mg PO BID aspirin 81 mg tablet,delayed release (DR/EC) 81 mg PO DAILY (DME) FreeStyle Lite Strips Strip See Rx Instructions .ROUTE .MEDSUPPLY Qty: 100 11RF Rx Instructions: As directed three times a day (DME) lancets [TRUEplus Lancets] 33 gauge misc See Rx Instructions .ROUTE .MEDSUPPLY Qty: 100 11RF Rx Instructions: As directed 3x/day gabapentin 300 mg capsule 300 mg PO BEDTIME Qty: 90 5RF biotin 1,000 mcg tablet,chewable 1,000 mcg PO DAILY Jardiance 10 mg tablet 10 mg PO DAILY (DME) pen needle, diabetic [BD Kelly 2nd Gen Pen Needle] 32 gauge x 5/32 needle See Rx Instructions .MEDSUPPLY Qty: 400 4RF Rx Instructions: 5 times a day (DME) FreeStyle Blake 2 [place] Misc See Rx Instructions .Route Qty: 1 0RF Rx Instructions: As directed insulin glargine 100 unit/mL (3 mL) insulin pen 20 unit subcut BEDTIME 90 Days Qty: 18 1RF Interventions: ED Discharge Assessment Last Done: 12/20/23 00:41 Discharge Date/Time: 12/20/23 00:42 Print Language: Macedonian
[2023-12-19 19:03] LABS: MANUAL DIFF FLAG NO
[2023-12-19 19:05] LABS: Basophils Percent Auto 0.1 % (0-2); Hematocrit 31.4 % (37.0-47.0); Hemoglobin 10.4 g/dl (12.0-16.0); Imm Gran Pct Auto 0.7 % (0.0-0.4); Lymphocytes Absolute Auto 0.6 X10*3/uL (1.2-4.9); Lymphocytes Percent Auto 4.3 % (20-40); Mean Corpuscular HGB Conc 33.1 g/dl (31.0-35.0); Mean Corpuscular Hemoglobin 30.1 pg (27.0-33.0); Mean Platelet Volume 10.5 fL (9.4-12.3); Monocytes Absolute Auto 1.2 X10*3/uL (0.1-1.2); Monocytes Percent Auto 8.4 % (2-11); Neutrophils Absolute Auto 12.2 x10*3/uL (2.0-8.3); Neutrophils Percent Auto 86.5 % (45-73); Platelet Count 175 X10*3/uL (160-400); Red Blood Count 3.45 X10*6/uL (4.20-5.50); White Blood Count 14.1 X10*3/uL (4.8-10.8)
[2023-12-19 19:16] LABS: VBG Base Excess 1.9 mmol/L; VBG HCO3 27 mmol/L (22-26); VBG pCO2 47 mmHg; VBG pH 7.37 (7.32-7.43); VBG pO2 51 mmHg
[2023-12-19 19:19] LABS: Venous Blood Gas Refer to POC result
[2023-12-19 19:25] LABS: Alanine Aminotransferase 28 U/L (0-31); Alkaline Phosphatase 96 U/L (39-117); Anion Gap 16 (12-20); Aspartate Amino Transferase 24 U/L (5-31); Bilirubin Total 0.7 mg/dL (0.0-1.0); Blood Urea Nitrogen 44 mg/dL (9-16); Calcium 9.5 mg/dL (8.4-10.2); Carbon Dioxide 25 mmol/L (22-29); Chloride 100 mmol/L (96-108); Estimated Glomerular Filt Rate 27; Glucose Random 443 mg/dL (60-115); Potassium 4.6 mmol/L (3.3-5.1); Sodium 136 mmol/L (135-145); Total Protein 7.7 g/dL (6.5-8.0)
[2023-12-19 19:28] LABS: B Type Natriuretic Peptide 711 pg/mL (<100)
[2023-12-19 19:45] LABS: Influenza A PCR NEGATIVE (Negative); Influenza B PCR NEGATIVE (Negative); Resp Syncy Virus RNA Qual PCR NEGATIVE (Negative); SARS COV2 PCR INHOUSE NEGATIVE (Negative)
[2023-12-19] MEDS: Acetaminophen 325 MG TABLET 650 MG PO (20:09)
[2023-12-19] MEDS: Insulin Lispro 100 UNIT/ML 3 ML VIAL 12 UNIT SUBCUT (20:10)
[2023-12-19] MEDS: 0.9 % Sodium Chloride 1,000 ML 999 ML IV (20:10)
--- NOTE | 2023-12-19 20:13 | PC.NURSE ---
pt medicated per order, family at bedside, ivf running per order
[2023-12-19] MEDS: cefTRIAXone sodium 1 GM in 0.9 % Sodium Chloride 50 ML IV (21:14)
[2023-12-19 21:24] LABS: Lactic Acid 1.3 mmol/L (0.5-2.0)
[2023-12-19 22:32] VITALS: BP 158/56; PULSE 72; RESP 20; TEMP 37.5; O2SAT 97
[2023-12-19 22:36] LABS: Appearance Urine Clear; Color Urine Yellow; Glucose Urine UA >=1000 mg/dL (Negative); Leukocyte Esterase Urine Negative (Negative); Nitrite Urine Negative (Negative); PH 5.5 (5.0-9.0); UMIC TRIGGER UACC YES; Urine Blood Negative (Negative); Urine Ketones Negative (Negative); Urine Protein 100 (2+) mg/dL (Neg-Trace)
[2023-12-19 22:46] LABS: Glucose, Whole Blood 311 mg/dL (60-115)
[2023-12-19 23:03] LABS: Bacteria Urine None Seen (None Seen); Hyaline Casts Urine 0-2 /LPF (0-2); RBC Urine 0-2 /HPF (0-2); Squamous Epithelial Cell Urine 0-2 /HPF (0-2); WBC Urine 0-5 /HPF (0-5)
[2023-12-20 00:33] VITALS: BP 157/42; PULSE 71; RESP 16; TEMP 37.4; O2SAT 93
[2023-12-20 00:40] VITALS: BP 157/42; PULSE 71; RESP 16; TEMP 37.4; O2SAT 93
[2023-12-20 00:41] VITALS: BP 157/42; PULSE 71; RESP 16; TEMP 37.4; O2SAT 93
== END 2023-12-20 00:42 | disposition home or self-care (01) ==
PROVIDERS: Registered Nurse Emergency; Emergency Provider Internal Medicine; PCP Internal Medicine
DX: J20.9 Acute bronchitis, unspecified (principal); E11.69 Type 2 diabetes mellitus with other specified complication; E11.22 Type 2 diabetes mellitus with diabetic chronic kidney disease; I12.9 Hypertensive chronic kidney disease with stage 1 through stage 4 chronic kidney disease, or unspecified chronic kidney disease; N18.30 Chronic kidney disease, stage 3 unspecified; Z86.73 Personal history of transient ischemic attack (TIA), and cerebral infarction without residual deficits; Z79.4 Long term (current) use of insulin
CPT/HCPCS: 0241U; 36415; 71046; 80053; 81001; 82803; 82947; 83605; 83880; 85025; 87040; 96361; 96365; 99284; J0696

== ENCOUNTER 2024-01-17 14:30 | Outpatient (AMB) | payer OTHER, SELFPAY ==
--- NOTE | 2024-01-17 14:43 | MHC.AMDMED ---
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 Services: Elementary Special Education Teacher Present Elementary Special Education Teacher Name: [facility] Interpreted: non-clinical & clinical Accompanied by: Daughter Allergies metformin [From GLUCOPHAGE] Adverse Reaction (Unknown, Verified 12/19/23 18:25) DIARRHEA HPI Comprehensive Diabetes Asmnt Most Recent Diabetes Results: Creatinine 1.81 mg/dL (0.5-1.4) H 12/19/23 Blood Urea Nitrogen 44 mg/dL (9-16) H 12/19/23 Sodium 136 mmol/L (135-145) 12/19/23 Potassium 4.6 mmol/L (3.3-5.1) 12/19/23 Chloride 100 mmol/L (96-108) 12/19/23 Carbon Dioxide 25 mmol/L (22-29) 12/19/23 Calcium 9.5 mg/dL (8.4-10.2) 12/19/23 AST 24 U/L (5-31) 12/19/23 ALT 28 U/L (0-31) 12/19/23 Total Protein 7.7 g/dL (6.5-8.0) 12/19/23 Albumin 4.0 g/dL (3.5-5.0) 12/19/23 [facility] Medical History Snoring Dyspnea on exertion PB (obstructive sleep apnea) Hypoxemia Breast calcification, right Obesity due to excess calories Peripheral nerve facial nerve paralysis History of CVA (cerebrovascular accident) GERD (gastroesophageal reflux disease) Asthma Morbid obesity Hypertension CKD stage 3 due to type 2 diabetes mellitus intermediate (current) use of insulin Diabetic nephropathy associated with type 2 diabetes mellitus Dyslipidemia Diabetes type 2, uncontrolled Surgical History Hx of tubal ligation Hx of bilateral cataract extraction Hx of hysterectomy History of appendectomy Family History Father Cancer Mother Diabetes mellitus Social History Household Members: None Housing: Apartment Do you presently have visiting nurse or other home services: Yes Alcohol intake: never Patient Tobacco Use Status: Never used Tobacco Second Hand Smoke Exposure: No Advance Directives Date on File: 11/26/20 service: No Current occupational status: disabled Current occupation: rt handed Female Reproductive History Menstrual Age of Menarche: 12 Assessment & Plan Assessment & Plan (1) CKD stage 3 due to type 2 diabetes mellitus: Code(s): E11.22 - Type 2 diabetes mellitus with diabetic chronic kidney disease; N18.30 - Chronic kidney disease, stage 3 unspecified Plan: Personal Continuous Glucose Monitor: Patients CGM information reviewed Reviewed patient's sensor data: Hypoglycemia: ? 0% Hyperglycemia:? 50% Time in Range:?50% Average glucose for the last 2 weeks? 195 mg/dL Patient has stopped Mounjaro 2.5 mg due to fecal incontinence. She is taking Lantus 15 units Humalog sliding scale Her glucose level has increased since the stop Mounjaro Recommended to patient to resume Lantus 20 units daily Made adjustment to Humalog sliding scale Recommended to patient if glucose is between 120 to 150 mg/dL she start taking 8 units to cover meals If patient has increase in hypoglycemic events instructed to contact clinical trial educator a provider Reviewed with patient how to use rule of 15s to treat hypoglycemia Patient reports she uses fruit juice or soda to treat low blood sugar Reviewed how to interpret trend arrows Reminded patient that to check finger sticks if symptoms do not match sensor reading. Discussed lag time between finger stick and sensor data.? Patient able to insert sensor independently at home without issue.? Patient will follow-up with clinical trial educator in 1 month Portions of this note were created using voice recognition software, please excuse any words or phrases that may have been misinterpreted. Patient Instructions: Aumentar Lantus de 15 unidades a 20 unidades Humalog escala de la siguiente manera 120-150 shilpa 8 unidades 151-200 -16 unidades 201-250 ?- 18 unidades Mas de 250?-?20 unidades Coding Level of Care Code Est Pt Level 1 (23437) Diagnoses CKD stage 3 due to type 2 diabetes mellitus E11.22; N18.30
== END 2024-01-17 14:58 | disposition home or self-care (01) ==
PROVIDERS: PCP Internal Medicine; Visit Provider Registered Nurse Diabetes Educator
DX: E11.22 Type 2 diabetes mellitus with diabetic chronic kidney disease (principal); N18.30 Chronic kidney disease, stage 3 unspecified

== ENCOUNTER → 2024-01-17 14:30 | Outpatient (BNVA) | payer OTHER, SELFPAY | PROVIDERS: PCP Internal Medicine; Visit Provider Registered Nurse Diabetes Educator | DX: E11.65 Type 2 diabetes mellitus with hyperglycemia (principal); E11.22 Type 2 diabetes mellitus with diabetic chronic kidney disease; E11.21 Type 2 diabetes mellitus with diabetic nephropathy; N18.30 Chronic kidney disease, stage 3 unspecified; Z79.4 Long term (current) use of insulin | CPT/HCPCS: 99211 ==

== ENCOUNTER 2024-02-06 13:58 | Outpatient (AMB) | payer OTHER, SELFPAY ==
[2024-02-06 14:05] VITALS: BP 130/64; BMI 42.5
--- NOTE | 2024-02-06 14:05 | A.OFFVIS_ITS ---
Vital Signs 02/06/24 14:05 Height 4 ft 5 in Weight 169 lb 12.095 oz BMI 42.5 BP 130/64 Blood Pressure Location Lt brachial Position Sitting Intake Visit Reasons: DM 2/CONFIRMED Intake Note: New patient presents today for D2MT. Last Diabetic Eye exam: 12/2023 Last Podiatry Visit: 11/2023 Random Glucose: 85 mg/dl HgA1c: 8.8% Water Superintendent Required: Yes Water Superintendent Language: Elevator Technician Services: Water Superintendent Present Water Superintendent Name: Osbaldo Information Interpreted: non-clinical & clinical Accompanied by: Daughter Allergies metformin [From GLUCOPHAGE] Adverse Reaction (Unknown, Verified 02/06/24 14:11) DIARRHEA Medication List - Last Reconciled 02/06/24 by Suyapa Best PA-C acetaminophen (Tylenol Extra Strength) 1,000 mg (2 x 500 mg) PO QID PRN ascorbic acid (vitamin C) (Vitamin C) 250 mg PO DAILY aspirin 81 mg PO DAILY atorvastatin 40 mg PO BEDTIME biotin 1,000 mcg PO DAILY blood sugar diagnostic (FreeStyle Lite Strips) As directed three times a day cholecalciferol (vitamin D3) 50 mcg PO DAILY empagliflozin (Jardiance) 10 mg PO DAILY flash glucose scanning reader (FreeStyle Blake 2 [place]) As directed flash glucose sensor (FreeStyle Blake 2 Sensor kit) USE DIRECTED CHANGE EVERY 14 DAYS furosemide 40 mg (2 x 20 mg) PO DAILY gabapentin 300 mg PO BEDTIME hydralazine 25 mg PO BID insulin glargine 20 units (0.2 mL) subcut BEDTIME 90 days lancets (TRUEplus Lancets) As directed 3x/day metoprolol tartrate 25 mg PO BID Novolog FlexPen U-100 Insulin (insulin aspart U-100) 18 - 20 units (0.18 - 0.2 mL) subcut TID 90 days NS pen needle, diabetic (BD Kelly 2nd Gen Pen Needle) 5 times a day HPI HPI DM 2/CONFIRMED: Details: Patient is a 73-year-old female with a significant past medical history of CKD, peripheral neuropathy, PB, hypertension, type 2 diabetes, insulin-dependent, prior CVA presenting today for follow-up regarding her diabetes. [facility] plastics repairer present Osbaldo Berg: Her last A1c was. She is currently on Lantus 15 units, Jardiance 10 mg and NovoLog 18-20 units t.i.d.. -mounjaro caused diarrhea so she discontinued, trulicity was ineffective CGM- Her usage is 65%, average glucose 207, GMI 8.3%, glucose variability 46.9%. Very high 30%, high 27%, in range 41%, hypoglycemic 2%, no very low blood sugars. - She appears to be high between 12:00 and 21:00. The few times that she was low it was between 00:00 and 03:00. CV: Blood pressure today in the office is 130/64. She is currently on metoprolol 25 mg b.i.d., hydralazine 25 mg twice a day, furosemide 40 mg daily. cholesterol is controlled with atorvastatin 40 mg. Last LDL was 64. She follows Cardiology and Nephrology. - At last visit with Nephrology it was recommended that she start an Arb but she declined due to previous intolerance. 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 Diabetic nephropathy associated with type 2 diabetes mellitus Dyslipidemia Diabetes type 2, uncontrolled Surgical History Hx of tubal ligation Hx of bilateral cataract extraction Hx of hysterectomy History of appendectomy Family History Father Cancer Mother Diabetes mellitus Social History Household Members: None Housing: Apartment Do you presently have visiting nurse or other home services: Yes Alcohol intake: never Patient Tobacco Use Status: Never used Tobacco Second Hand Smoke Exposure: No Advance Directives Date on File: 11/26/20 service: No Current occupational status: disabled Current occupation: rt handed Female Reproductive History Menstrual Age of Menarche: 12 Physical Exam Vital Signs: Last Vital Signs BP 130/64 02/06/24 14:05 BMI result Body Mass Index 42.5 Const Orientation/consciousness: patient oriented x3 Neck Neck: Yes no lymphadenopathy Thyroid: Thyroid normal Carotids: no bruits Resp Auscultation: clear to auscultation bilaterally Cardio Rate: regular rate Rhythm: regular rhythm Heart sounds: S1 normal heart sound present and S2 normal heart sound present Peripheral pulses: dorsalis pedis present Neuro General: patient oriented x3, gait normal and no focal motor deficits Extrem Other: Monofilament sensation diminished bilaterally. Vibratory diminished intact bilaterally. Skin intact. General: Yes normal to inspection Results AMB Hemoglobin A1c AMB Hemoglobin A1c 8.8 % Last Edit by JACKLYN Johnson on 02/06/24 14:32 Results Reviewed Results Reviewed: Laboratory Last Values Glucose (Clinic) 85 mg/dL (60-115) 02/06/24 14:12 Laboratory Tests 08/16/23 09/30/23 12/05/23 10:48 08:11 08:00 Sodium Potassium Chloride Carbon Dioxide Anion Gap BUN Creatinine 1.37 1.52 H Estim Creat Clear Calc Estimated GFR 38 34 AST ALT Triglycerides 50 Cholesterol 143 LDL Cholesterol, Calc 64 HDL Cholesterol 69 12/19/23 18:57 Sodium 136 Potassium 4.6 Chloride 100 Carbon Dioxide 25 Anion Gap 16 BUN 44 H Creatinine 1.81 H Estim Creat Clear Calc 31.0 Estimated GFR 27 AST 24 ALT 28 Triglycerides Cholesterol LDL Cholesterol, Calc HDL Cholesterol Assessment & Plan Assessment & Plan (1) Diabetic nephropathy associated with type 2 diabetes mellitus: Code(s): E11.21 - Type 2 diabetes mellitus with diabetic nephropathy Category: Medical Plan: will try Ozempic. We discussed Side effects at length today. We discussed risks, benefits and adverse effects. Freestyle Blake 3 ordered. One-month follow-up. 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 Rule of 15 discussed. (3) Hypertension: Code(s): I10 - Essential (primary) hypertension Category: Medical Qualifiers: Hypertension type: primary hypertension Qualified Code(s): I10 - Essential (primary) hypertension Plan: WNL. Continue current regimen (4) Morbid obesity with BMI of 40.0-44.9, adult: Code(s): E66.01 - Morbid (severe) obesity due to excess calories; Z68.41 - Body mass index [BMI] 40.0-44.9, adult Category: Medical Plan: discussed the importance of weight loss. Will start on Ozempic. 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 semaglutide (Ozempic) for 4 weeks; then increase to 0.5 mg every week 0.25 mg (0.368 mL) subcut QWEEK 3 mL 3RF blood-glucose meter,continuous (FreeStyle Blake 3 [place]) As directed 1 ea 0RF Changed From Novolog FlexPen U-100 Insulin (insulin aspart U-100) 18 - 20 units (0.18 - 0.2 mL) subcut TID 90 days 45 mL 2RF NS E11.65 - Type 2 diabetes mellitus with hyperglycemia To Novolog FlexPen U-100 Insulin (insulin aspart U-100) 22 units (0.22 mL) subcut TID 90 days 59.4 mL 2RF NS E11.65 - Type 2 diabetes mellitus with hyperglycemia Coding Level of Care Code Est Pt Level 4 (00876) Complex EM visit Add On G2211 Diagnoses Diabetic nephropathy associated with type 2 diabetes mellitus E11.21 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
[2024-02-06 14:16] LABS: Glucose, Whole Blood 85 mg/dL (60-115)
== END 2024-02-06 14:46 | disposition home or self-care (01) ==
PROVIDERS: PCP Internal Medicine; Visit Provider Physician Assistant
DX: E11.21 Type 2 diabetes mellitus with diabetic nephropathy (principal); Z79.4 Long term (current) use of insulin; I10 Essential (primary) hypertension; E66.01 Morbid (severe) obesity due to excess calories; Z68.41 Body mass index [BMI] 40.0-44.9, adult; Z13.9 Encounter for screening, unspecified; E11.65 Type 2 diabetes mellitus with hyperglycemia
CPT/HCPCS: 99214; G2211

== ENCOUNTER → 2024-02-06 13:58 | Outpatient (BNVA) | payer OTHER, SELFPAY | PROVIDERS: PCP Internal Medicine; Visit Provider Physician Assistant | DX: E11.21 Type 2 diabetes mellitus with diabetic nephropathy (principal); I10 Essential (primary) hypertension; E66.01 Morbid (severe) obesity due to excess calories; Z79.4 Long term (current) use of insulin; Z68.41 Body mass index [BMI] 40.0-44.9, adult | CPT/HCPCS: 82947; 83036; 99212 ==

== ENCOUNTER 2024-02-13 07:45 | Outpatient (REF) | payer OTHER, SELFPAY ==
[2024-02-13 08:55] LABS: Anion Gap 13 (12-20); Blood Urea Nitrogen 42 mg/dL (9-16); Carbon Dioxide 28 mmol/L (22-29); Chloride 106 mmol/L (96-108); Estimated Glomerular Filt Rate 29; Sodium 142 mmol/L (135-145)
== END 2024-02-13 07:46 | disposition home or self-care (01) ==
LOC: HO.LAB 07:45
PROVIDERS: PCP Internal Medicine; Visit Provider Internal Medicine Nephrology
DX: I12.9 Hypertensive chronic kidney disease with stage 1 through stage 4 chronic kidney disease, or unspecified chronic kidney disease (principal); E11.22 Type 2 diabetes mellitus with diabetic chronic kidney disease; N18.30 Chronic kidney disease, stage 3 unspecified; R60.9 Edema, unspecified
CPT/HCPCS: 36415; 80051; 82565; 84520

== ENCOUNTER 2024-02-15 12:00 | Outpatient (AMB) | payer OTHER, SELFPAY ==
--- NOTE | 2024-02-15 12:02 | HO.NEPHOV ---
Vital Signs 02/15/24 12:10 Height 4 ft 5 in Weight 171 lb 8 oz BMI 42.9 BP 130/60 Blood Pressure Location Rt brachial Position Sitting Pulse 58 Pulse Source Pulse Oximeter Pulse Oximetry (%) 96 Oxygen Delivery Method Room Air Intake Visit Reasons: 2 mon follow up Intake Note: Director Business Management refusal form signed and scanned into chart. Director Business Management Required: Yes Director Business Management Services: Director Business Management Offered & Declined Director Business Management Name: Ronda Allergies metformin [From GLUCOPHAGE] Adverse Reaction (Unknown, Verified 02/15/24 12:17) DIARRHEA HPI Comments Details: I had the privilege of seeing Sindi in follow-up of her chronic kidney disease due to biopsy-proven diabetic nephropathy. Her blood sugar control continues to be labile. She has history of cerebrovascular accident. She has hypertension. She had no deficits from CVA. Blood pressure is better controlled. She has not good with her diet and weight loss. She is tolerating Jardiance without any side effects . She denies using any nonsteroidal anti-inflammatories but consumes normal sodium and has a normal diet. she was on angiotensin receptor claude in the past which she did not tolerate very well. She denies chest pain, shortness of breath, paroxysmal nocturnal dyspnea, orthopnea, pedal edema, urinary symptoms or orthostasis. She tries to maintain herself with good hydration. She has been having facial swelling and pedal edema which resolved with diuresis. She is not very compliant with low sodium diet. 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 Diabetic nephropathy associated with type 2 diabetes mellitus Dyslipidemia Diabetes type 2, uncontrolled Surgical History Hx of tubal ligation Hx of bilateral cataract extraction Hx of hysterectomy History of appendectomy Family History Father Cancer Mother Diabetes mellitus Social History Household Members: None Housing: Apartment Do you presently have visiting nurse or other home services: Yes Alcohol intake: never Patient Tobacco Use Status: Never used Tobacco Second Hand Smoke Exposure: No Advance Directives Date on File: 11/26/20 service: No Current occupational status: disabled Current occupation: rt handed Female Reproductive History Menstrual Age of Menarche: 12 Physical Exam Vital Signs: Last Vital Signs Pulse 58 02/15/24 12:10 BP 150/60 H 02/15/24 12:10 Pulse Ox 96 02/15/24 12:10 Oxygen Delivery Method Room Air 02/15/24 12:10 BMI result Body Mass Index 42.9 Const General: comfortable and no acute distress Orientation/consciousness: patient oriented x3 HEENT Head: Yes normocephalic Mouth: Normal oral and palatal mucosa present Eyes EOM: EOMs intact bilaterally Neck Neck: Yes supple Resp Auscultation: clear to auscultation bilaterally Cardio Jugular venous distension: no JVD Rate: regular rate GI Palpation (GI): Soft to palpation Auscultation: normal bowel sounds General: Yes no CVA tenderness Back/Spine/Pelvis Back: no CVA tenderness Skin General skin exam: no rashes or lesions noted Neuro General: patient oriented x3 and moves all extremities Extrem General: Yes no pedal edema Results Reviewed Nephrology Results: Hgb 10.4 g/dl (12.0-16.0) L 12/19/23 WBC 14.1 X10*3/uL (4.8-10.8) H 12/19/23 Plt Count 175 X10*3/uL (160-400) 12/19/23 Sodium 142 mmol/L (135-145) 02/13/24 Potassium 5.0 mmol/L (3.3-5.1) 02/13/24 Chloride 106 mmol/L (96-108) 02/13/24 Carbon Dioxide 28 mmol/L (22-29) 02/13/24 BUN 42 mg/dL (9-16) H 02/13/24 Creatinine 1.73 mg/dL (0.5-1.4) H 02/13/24 Calcium 9.5 mg/dL (8.4-10.2) 12/19/23 Urine Protein 100 (2+) mg/dL (Neg-Trace) H 12/19/23 Assessment & Plan Assessment & Plan (1) CKD stage 3 due to type 2 diabetes mellitus: Code(s): E11.22 - Type 2 diabetes mellitus with diabetic chronic kidney disease; N18.30 - Chronic kidney disease, stage 3 unspecified Category: Medical (2) Diabetic nephropathy associated with type 2 diabetes mellitus: Code(s): E11.21 - Type 2 diabetes mellitus with diabetic nephropathy Category: Medical (3) Hypertension: Code(s): I10 - Essential (primary) hypertension Category: Medical Qualifiers: Hypertension type: primary hypertension Qualified Code(s): I10 - Essential (primary) hypertension Plan Sindi has 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 Her renal biopsy in the past showed significant disease from diabetes and hypertension. She had been off angiotensin receptor claude. I wanted her to go back on losartan 25 mg daily which she did not want to , given her potassium may go up. She should be on a low-potassium diet. I discussed with her that in the event if her serum potassium goes up on initiating ARB, we could manage that with medications. She wants to think about it. She is on diuretics. She is tolerating Jardiance very well. She should maintain a tighter blood sugar control. She should cut back sodium in the diet and lose weight. She should maintain good hydration and avoid nonsteroidal anti-inflammatories. She should continue lasix 20 mg daily. She is on Jardiance.I have ordered follow up blood work. She may need addition of Imdur and ECHO. I did not make any other medication changes today. Follow up appointment given Coding Level of Care Code Est Pt Level 4 (24103) Diagnoses CKD stage 3 due to type 2 diabetes mellitus E11.22; N18.30 Diabetic nephropathy associated with type 2 diabetes mellitus E11.21 Primary hypertension I10 Hypertension type: primary hypertension
[2024-02-15 12:10] VITALS: BP 130/60; PULSE 58; O2SAT 96; BMI 42.9
== END 2024-02-15 12:44 | disposition home or self-care (01) ==
PROVIDERS: PCP Internal Medicine; Visit Provider Internal Medicine Nephrology
DX: E11.22 Type 2 diabetes mellitus with diabetic chronic kidney disease (principal); N18.30 Chronic kidney disease, stage 3 unspecified; E11.21 Type 2 diabetes mellitus with diabetic nephropathy; I10 Essential (primary) hypertension
CPT/HCPCS: 99214

== ENCOUNTER → 2024-02-15 12:00 | Outpatient (BNVA) | payer OTHER, SELFPAY | PROVIDERS: PCP Internal Medicine; Visit Provider Internal Medicine Nephrology | DX: E11.22 Type 2 diabetes mellitus with diabetic chronic kidney disease (principal); I12.9 Hypertensive chronic kidney disease with stage 1 through stage 4 chronic kidney disease, or unspecified chronic kidney disease; N18.30 Chronic kidney disease, stage 3 unspecified; E11.21 Type 2 diabetes mellitus with diabetic nephropathy | CPT/HCPCS: 99212 ==

== ENCOUNTER 2024-03-16 10:55 | Outpatient (AMB) | payer OTHER, SELFPAY ==
--- NOTE | 2024-03-16 10:48 | MHC.OFFVIS ---
Vital Signs 03/16/24 11:08 Height 4 ft 5 in Weight 171 lb 1.259 oz BMI 42.8 BP 120/68 Blood Pressure Location Lt brachial Position Sitting Pulse 57 Pulse Source Pulse Oximeter Intake Visit Reasons: T2DM Intake Note: New patient presents today for D2MT office visit. Last Diabetic Eye exam: 11/2023 Last Podiatry Visit: 02/2024 Random Glucose: 124 mg/dl HgA1c: 8.8% 02/06/24 Nursing Center Tutor Required: No Accompanied by: Daughter Allergies metformin [From GLUCOPHAGE] Adverse Reaction (Unknown, Verified 03/16/24 11:22) DIARRHEA Medication List - Last Reconciled 03/16/24 by Suyapa Best PA-C acetaminophen (Tylenol Extra Strength) 1,000 mg (2 x 500 mg) PO QID PRN ascorbic acid (vitamin C) (Vitamin C) 250 mg PO DAILY aspirin 81 mg PO DAILY atorvastatin 40 mg PO BEDTIME biotin 1,000 mcg PO DAILY blood sugar diagnostic (FreeStyle Lite Strips) As directed three times a day blood-glucose meter,continuous (FreeStyle Blake 3 [place]) Use daily As directed to monitor type 2 diabetes blood-glucose meter,continuous (FreeStyle Blake 3 [place]) As directed blood-glucose sensor (FreeStyle Blake 3 Sensor device) Apply every 14 days As directed cholecalciferol (vitamin D3) 50 mcg PO DAILY empagliflozin (Jardiance) 10 mg PO DAILY furosemide 40 mg (2 x 20 mg) PO DAILY gabapentin 300 mg PO BEDTIME hydralazine 25 mg PO BID insulin glargine 20 units (0.2 mL) subcut BEDTIME 90 days lancets (TRUEplus Lancets) As directed 3x/day metoprolol tartrate 25 mg PO BID Novolog FlexPen U-100 Insulin (insulin aspart U-100) 22 units (0.22 mL) subcut TID 90 days NS pen needle, diabetic (BD Kelly 2nd Gen Pen Needle) 5 times a day semaglutide (Ozempic) 0.25 mg (0.368 mL) subcut QWEEK HPI HPI T2DM: Details: Patient is a 73-year-old female with a significant past medical history of CKD, peripheral neuropathy, PB, hypertension, type 2 diabetes, insulin-dependent, prior CVA presenting today for follow-up regarding her diabetes. [facility] x ray physician present Osbaldo Berg: Her last A1c was 8.8. She is currently on Lantus 15 units, Jardiance 10 mg and NovoLog 18-20 units t.i.d., and ozempic was added at last visit of 0.25 mg q weekly. -She just picked up the ozempic this week. States she will start this weekend. -she does not want to make any adjustments today. -She just got the freestyle 3 yesterday and states that she is going to put the new 1 on the weekend. -mounjaro caused diarrhea so she discontinued, trulicity was ineffective CGM- Her usage is 52%, average glucose 193. Very high 23%, high 26%, in range 51%,, no low blood sugars. - She appears to be high between 12:00 and 21:00. CV: Blood pressure today in the office is 120/68. She is currently on metoprolol 25 mg b.i.d., hydralazine 25 mg twice a day, furosemide 40 mg daily. cholesterol is controlled with atorvastatin 40 mg. Last LDL was 64. She follows Cardiology and Nephrology. - At last visit with Nephrology it was recommended that she start an Arb but she declined due to previous intolerance. 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 diabetes mellitus senior care (current) use of insulin Diabetic nephropathy associated with type 2 diabetes mellitus Dyslipidemia Diabetes type 2, uncontrolled Surgical History Hx of tubal ligation Hx of bilateral cataract extraction Hx of hysterectomy History of appendectomy Family History Father Cancer Mother Diabetes mellitus Social History Household Members: None Housing: Apartment Do you presently have visiting nurse or other home services: Yes Alcohol intake: never Patient Tobacco Use Status: Never used Tobacco Second Hand Smoke Exposure: No Advance Directives Date on File: 11/26/20 service: No Current occupational status: disabled Current occupation: rt handed Female Reproductive History Menstrual Age of Menarche: 12 Physical Exam Vital Signs: Last Vital Signs Pulse 57 03/16/24 11:08 BP 120/68 03/16/24 11:08 BMI result Body Mass Index 42.8 Const Orientation/consciousness: patient oriented x3 Neck Neck: Yes no lymphadenopathy Thyroid: Thyroid normal Carotids: no bruits Resp Auscultation: clear to auscultation bilaterally Cardio Rate: regular rate Rhythm: regular rhythm Heart sounds: S1 normal heart sound present and S2 normal heart sound present Peripheral pulses: dorsalis pedis present Neuro General: patient oriented x3, gait normal and no focal motor deficits Results Reviewed Results Reviewed: Laboratory Tests 10/04/23 02/06/24 02/13/24 14:15 14:15 08:01 Sodium 142 Potassium 5.0 Chloride 106 Carbon Dioxide 28 Anion Gap 13 Creatinine 1.73 H Estimated GFR 29 Hgb A1c (Clinic) 8.4 H 8.8 H Assessment & Plan Assessment & Plan (1) Diabetic nephropathy associated with type 2 diabetes mellitus: Code(s): E11.21 - Type 2 diabetes mellitus with diabetic nephropathy Category: Medical Plan: Advised to start the Ozempic. Follow-up in 3 months. Sooner if needed. She will call me if she does not tolerate this and I will adjust Lantus and Jardiance. She does not want to do this today. 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 Advised to use the continuous monitor. (3) Hypertension: Code(s): I10 - Essential (primary) hypertension Category: Medical Qualifiers: Hypertension type: primary hypertension Qualified Code(s): I10 - Essential (primary) hypertension Plan: WNL. Continue current regimen (4) Morbid obesity with BMI of 40.0-44.9, adult: Code(s): E66.01 - Morbid (severe) obesity due to excess calories; Z68.41 - Body mass index [BMI] 40.0-44.9, adult Category: Medical Plan: Discussed the importance of weight loss. Orders: Orders Comprehensive [place]. Panel Fast Today E11.21 - Type 2 diabetes mellitus with diabetic nephropathy, I10 - Essential (primary) hypertension, Z79.4 - senior care (current) use of insulin Microalbumin, Random (w Creat) Today E11.21 - Type 2 diabetes mellitus with diabetic nephropathy, I10 - Essential (primary) hypertension, Z79.4 - senior care (current) use of insulin Hemoglobin A1c Today E11.21 - Type 2 diabetes mellitus with diabetic nephropathy, I10 - Essential (primary) hypertension, Z79.4 - senior care (current) use of insulin Coding Level of Care Code Est Pt Level 4 (03990) Complex EM visit Add On G2211 Diagnoses Diabetic nephropathy associated with type 2 diabetes mellitus E11. 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
[2024-03-16 11:08] VITALS: BP 120/68; PULSE 57; BMI 42.8
[2024-03-16 11:35] LABS: Glucose, Whole Blood 124 mg/dL (60-115)
== END 2024-03-16 11:52 | disposition home or self-care (01) ==
PROVIDERS: PCP Internal Medicine; Visit Provider Physician Assistant
DX: E11.21 Type 2 diabetes mellitus with diabetic nephropathy (principal); Z79.4 Long term (current) use of insulin; I10 Essential (primary) hypertension; E66.01 Morbid (severe) obesity due to excess calories; Z68.41 Body mass index [BMI] 40.0-44.9, adult
CPT/HCPCS: 99214; G2211

== ENCOUNTER → 2024-03-16 10:55 | Outpatient (BNVA) | payer OTHER, SELFPAY | PROVIDERS: PCP Internal Medicine; Visit Provider Physician Assistant | DX: E11.21 Type 2 diabetes mellitus with diabetic nephropathy (principal); Z79.4 Long term (current) use of insulin; I10 Essential (primary) hypertension; E66.01 Morbid (severe) obesity due to excess calories; Z68.41 Body mass index [BMI] 40.0-44.9, adult | CPT/HCPCS: 82947; 99212 ==

== ENCOUNTER 2024-04-09 10:06 | Outpatient (AMB) | payer OTHER, SELFPAY ==
--- NOTE | 2024-04-09 10:34 | A.OFFVIS_ITS ---
Intake Intake Visit Reasons: 30 min Blood Bank Laboratory Technologist Required: Yes Blood Bank Laboratory Technologist Language: Emergency Specialist Name: [facility] [place] Accompanied by: Self / Same As Patient Allergies metformin [From GLUCOPHAGE] Adverse Reaction (Unknown, Verified 03/16/24 11:22) DIARRHEA HPI Comprehensive Diabetes Asmnt Most Recent Diabetes Results: Creatinine 1.73 mg/dL (0.5-1.4) H 02/13/24 Blood Urea Nitrogen 42 mg/dL (9-16) H 02/13/24 Sodium 142 mmol/L (135-145) 02/13/24 Potassium 5.0 mmol/L (3.3-5.1) 02/13/24 Chloride 106 mmol/L (96-108) 02/13/24 Carbon Dioxide 28 mmol/L (22-29) 02/13/24 [facility] Medical History Snoring Dyspnea on exertion PB (obstructive sleep apnea) Hypoxemia Breast calcification, right Obesity due to excess calories Peripheral nerve facial nerve paralysis History of CVA (cerebrovascular accident) GERD (gastroesophageal reflux disease) Asthma Morbid obesity Hypertension CKD stage 3 due to type 2 diabetes mellitus jail (current) use of insulin Diabetic nephropathy associated with type 2 diabetes mellitus Dyslipidemia Diabetes type 2, uncontrolled Surgical History Hx of tubal ligation Hx of bilateral cataract extraction Hx of hysterectomy History of appendectomy Family History Father Cancer Mother Diabetes mellitus Social History Household Members: None Housing: Apartment Do you presently have visiting nurse or other home services: Yes Alcohol intake: never Patient Tobacco Use Status: Never used Tobacco Second Hand Smoke Exposure: No Advance Directives Date on File: 11/26/20 service: No Current occupational status: disabled Current occupation: rt handed Female Reproductive History Menstrual Age of Menarche: 12 Assessment & Plan Assessment & Plan (1) CKD stage 3 due to type 2 diabetes mellitus: Code(s): E11.22 - Type 2 diabetes mellitus with diabetic chronic kidney disease; N18.30 - Chronic kidney disease, stage 3 unspecified Plan: Patient at visit to set up an insert Blake 3 Patient reports Blake 3 reader was dropped at home and stopped working Patient came into clinic today to see if she could use smart phone to see glucose numbers Blake 3 ibrahima downloaded, in set up on patient's smart phone Instructed patient sensors water proof you can shower, or swim do not submerge sensor in water for over 30 minutes Is sensor falls off cannot put back in you need to replace sensor, customer service number given to patient for sensor replacement Sensor placed on the back of R arm Patient left visit with sensor in warmup Reviewed how to interpret trend arrows Reminded patient that to check finger sticks if symptoms do not match sensor tracey gumaro. Discussed lag time between finger stick and sensor data.? Instructed patient she should always keep blood glucometer for backup testing if needed Reviewed delay of CGM from fingersticks Reminded pt that if symptoms do not match sensor still needs to check fingersticks. Login: [email or web address] Portions of this note were created using voice recognition software, please excuse any words or phrases that may have been misinterpreted. Patient Instructions: Instrucciones para el paciente: CGM proporciona informaci?n sobre el control de la glucosa en delmer a lo yolette del d?a, incluidas la hiperglucemia y la hipoglucemia. Contin?e controlando la glucosa en delmer seg?n las instrucciones. Siga las pautas de nutrici?n proporcionadas. Informe cualquier molestia de inmediato al proveedor de atenci?n m?dica. Mantente andrew hidratado. Puede ba?arse, ducharse, nadar y hacer ejercicio mientras usa el sensor de glucosa. No sumerja el sensor de glucosa en agua gagandeep m?s de 30 minutos. Retire el sensor para eusebia resonancia magn?fartun o eusebia tomograf?a computarizada. Evite la m?quina de duke X en los aeropuertos: retire el sensor o solicite la varita Coding Level of Care Code Est Pt Level 1 (55138) Diagnoses CKD stage 3 due to type 2 diabetes mellitus E11.22; N18.30
== END 2024-04-09 12:11 | disposition home or self-care (01) ==
PROVIDERS: PCP Internal Medicine; Visit Provider Registered Nurse Diabetes Educator
DX: E11.22 Type 2 diabetes mellitus with diabetic chronic kidney disease (principal); N18.30 Chronic kidney disease, stage 3 unspecified

== ENCOUNTER → 2024-04-09 10:06 | Outpatient (BNVA) | payer OTHER, SELFPAY | PROVIDERS: PCP Internal Medicine; Visit Provider Registered Nurse Diabetes Educator | DX: E11.22 Type 2 diabetes mellitus with diabetic chronic kidney disease (principal); N18.30 Chronic kidney disease, stage 3 unspecified | CPT/HCPCS: 99211 ==

== ENCOUNTER 2024-05-11 13:18 | Outpatient (AMB) | payer OTHER, SELFPAY ==
[2024-05-11 13:38] VITALS: BP 134/60; PULSE 78; O2SAT 97; BMI 41.8
--- NOTE | 2024-05-11 13:38 | HO.NEPHOV ---
Vital Signs 05/11/24 13:38 Height 4 ft 5 in Weight 167 lb 2 oz BMI 41.8 BP 134/60 Blood Pressure Location Rt brachial Position Sitting Pulse 78 Pulse Source Pulse Oximeter Pulse Oximetry (%) 97 Oxygen Delivery Method Room Air Intake Visit Reasons: CKD- Conf w/daughter Conveyor System Operator Required: Yes Conveyor System Operator Language: Inspector Tool Services: Conveyor System Operator Offered & Declined ([facility]. Pt accompanied by daughter. ) Accompanied by: Daughter Allergies metformin [From GLUCOPHAGE] Adverse Reaction (Unknown, Verified 05/11/24 13:41) DIARRHEA HPI Comments Details: Sindi was seen in follow-up of her chronic kidney disease due to biopsy-proven diabetic nephropathy. Her blood sugar control continues to be labile. She has history of cerebrovascular accident. She has hypertension. She had no deficits from CVA. Blood pressure is better controlled. She has not good with her diet and weight loss. She is tolerating Jardiance without any side effects . She denies using any nonsteroidal anti-inflammatories but consumes normal sodium and has a normal diet. she was on angiotensin receptor claude in the past which she did not tolerate very well. She denies chest pain, shortness of breath, paroxysmal nocturnal dyspnea, orthopnea, pedal edema, urinary symptoms or orthostasis. She tries to maintain herself with good hydration. She has been having facial swelling and pedal edema which resolved with diuresis. She is not very compliant with low sodium diet. 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 Diabetic nephropathy associated with type 2 diabetes mellitus Dyslipidemia Diabetes type 2, uncontrolled Surgical History Hx of tubal ligation Hx of bilateral cataract extraction Hx of hysterectomy History of appendectomy Family History Father Cancer Mother Diabetes mellitus Social History Household Members: None Housing: Apartment Do you presently have visiting nurse or other home services: Yes Alcohol intake: never Patient Tobacco Use Status: Never used Tobacco Second Hand Smoke Exposure: No Advance Directives Date on File: 11/26/20 service: No Current occupational status: disabled Current occupation: rt handed Female Reproductive History Menstrual Age of Menarche: 12 Review of Systems Const All systems reviewed & are unremarkable except as noted in HPI and below Physical Exam Vital Signs: Last Vital Signs Pulse 78 05/11/24 13:38 BP 134/60 05/11/24 13:38 Pulse Ox 97 05/11/24 13:38 Oxygen Delivery Method Room Air 05/11/24 13:38 BMI result Body Mass Index 41.8 Const General: comfortable and no acute distress Orientation/consciousness: patient oriented x3 HEENT Head: Yes normocephalic Mouth: Normal oral and palatal mucosa present Eyes EOM: EOMs intact bilaterally Neck Neck: Yes supple Resp Auscultation: clear to auscultation bilaterally Cardio Jugular venous distension: no JVD Rate: regular rate GI Palpation (GI): Soft to palpation Auscultation: normal bowel sounds General: Yes no CVA tenderness Back/Spine/Pelvis Back: no CVA tenderness Skin General skin exam: no rashes or lesions noted Neuro General: patient oriented x3 and moves all extremities Extrem General: Yes no pedal edema Results Reviewed Nephrology Results: Sodium 142 mmol/L (135-145) 02/13/24 Potassium 5.0 mmol/L (3.3-5.1) 02/13/24 Chloride 106 mmol/L (96-108) 02/13/24 Carbon Dioxide 28 mmol/L (22-29) 02/13/24 BUN 42 mg/dL (9-16) H 02/13/24 Creatinine 1.73 mg/dL (0.5-1.4) H 02/13/24 Assessment & Plan Assessment & Plan (1) CKD stage 3 due to type 2 diabetes mellitus: Code(s): E11.22 - Type 2 diabetes mellitus with diabetic chronic kidney disease; N18.30 - Chronic kidney disease, stage 3 unspecified Category: Medical (2) Hypertension: Code(s): I10 - Essential (primary) hypertension Category: Medical Qualifiers: Hypertension type: primary hypertension Qualified Code(s): I10 - Essential (primary) hypertension Plan Sindi has 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 Her renal biopsy in the past showed significant disease from diabetes and hypertension. She had been off angiotensin receptor claude. She should be on a low-potassium diet. She is not sure whether she is taking Jardiance. She should maintain a tighter blood sugar control. She should cut back sodium in the diet and lose weight. She should maintain good hydration and avoid nonsteroidal anti-inflammatories. I have ordered follow up blood work. I did not make any other medication changes today. Follow up appointment given Orders: Orders Electrolytes 3 Weeks E11.22 - Type 2 diabetes mellitus with diabetic chronic kidney disease, I10 - Essential (primary) hypertension, N18.30 - Chronic kidney disease, stage 3 unspecified Creatinine 3 Weeks E11.22 - Type 2 diabetes mellitus with diabetic chronic kidney disease, I10 - Essential (primary) hypertension, N18.30 - Chronic kidney disease, stage 3 unspecified Blood Urea Nitrogen 3 Weeks E11.22 - Type 2 diabetes mellitus with diabetic chronic kidney disease, I10 - Essential (primary) hypertension, N18.30 - Chronic kidney disease, stage 3 unspecified Coding Level of Care Code Est Pt Level 4 (79910) Diagnoses CKD stage 3 due to type 2 diabetes mellitus E11.22; N18.30 Primary hypertension I10 Hypertension type: primary hypertension
== END 2024-05-11 13:59 | disposition home or self-care (01) ==
PROVIDERS: PCP Internal Medicine; Visit Provider Internal Medicine Nephrology
DX: I12.9 Hypertensive chronic kidney disease with stage 1 through stage 4 chronic kidney disease, or unspecified chronic kidney disease (principal); E11.22 Type 2 diabetes mellitus with diabetic chronic kidney disease; N18.30 Chronic kidney disease, stage 3 unspecified
CPT/HCPCS: 99214

== ENCOUNTER → 2024-05-11 13:18 | Outpatient (BNVA) | payer OTHER, SELFPAY | PROVIDERS: PCP Internal Medicine; Visit Provider Internal Medicine Nephrology | DX: E11.22 Type 2 diabetes mellitus with diabetic chronic kidney disease (principal); I12.9 Hypertensive chronic kidney disease with stage 1 through stage 4 chronic kidney disease, or unspecified chronic kidney disease; N18.30 Chronic kidney disease, stage 3 unspecified | CPT/HCPCS: 99212 ==

== ENCOUNTER 2024-05-16 08:23 | Outpatient (REF) | payer OTHER, SELFPAY ==
[2024-05-16 12:24] LABS: Anion Gap 11 (12-20); Blood Urea Nitrogen 35 mg/dL (9-16); Calcium 9.3 mg/dL (8.4-10.2); Carbon Dioxide 27 mmol/L (22-29); Chloride 105 mmol/L (96-108); Estimated Glomerular Filt Rate 29; Glucose Random 162 mg/dL (60-115); Potassium 5.3 mmol/L (3.3-5.1); Sodium 138 mmol/L (135-145)
== END 2024-05-16 08:24 | disposition home or self-care (01) ==
LOC: HO.HHCL 08:23
PROVIDERS: Visit Provider Internal Medicine
DX: I10 Essential (primary) hypertension (principal)
CPT/HCPCS: 36415; 80048

== ENCOUNTER 2024-05-18 08:25 | Outpatient (REF) | payer OTHER, SELFPAY ==
[2024-05-18 11:36] LABS: Anion Gap 11 (12-20); Blood Urea Nitrogen 40 mg/dL (9-16); Carbon Dioxide 29 mmol/L (22-29); Chloride 106 mmol/L (96-108); Estimated Glomerular Filt Rate 27; Potassium 5.1 mmol/L (3.3-5.1); Sodium 141 mmol/L (135-145)
== END 2024-05-18 08:26 | disposition home or self-care (01) ==
LOC: HO.CHCLDS 08:25
PROVIDERS: Visit Provider Internal Medicine Nephrology
DX: Z13.89 Encounter for screening for other disorder (principal)
CPT/HCPCS: 36415; 80051; 82565; 84520

== ENCOUNTER 2024-05-18 09:02 | Emergency (ER) | payer OTHER, SELFPAY ==
[2024-05-18 09:06] VITALS: BP 139/52; PULSE 69; RESP 18; TEMP 36.4; O2SAT 96; BMI 41.2
--- NOTE | 2024-05-18 09:06 | ECG_ITS ---
Test Reason : HYPERKALEMIC Blood Pressure : / mmHG Vent. Rate : 068 BPM Atrial Rate : 068 BPM P-R Int : 196 ms QRS Dur : 094 ms QT Int : 414 ms P-R-T Axes : 031 005 067 degrees QTc Int : 440 ms Normal sinus rhythm Normal ECG When compared to the previous EKG of No significant changes seen Referred By: Generic ED Physician Electronically Signed By:Yoan Patrick
--- NOTE | 2024-05-18 09:15 | ED.RECABL ---
HPI - Recheck/Abnormal Lab/Rx General Chief Complaint: Recheck/Abnormal Lab/Rx Stated Complaint: abnormal lab results Time Seen by Provider: 05/18/24 09:15 Source: patient, RN notes reviewed and old records reviewed Mode of arrival: ambulatory History of Present Illness ED Provider: Allyn Lo PA-C HPI narrative: 73-year-old female with a past medical history of CKD, peripheral neuropathy, PB, HTN, diabetes, prior CVA, presenting to the ED sent in from [facility] for elevated potassium noted on outpatient labs on yesterday. Patient denies symptoms at present. Denies recent change in medications or new medications. Admits does still take Lasix. Followed with last week. Denies CP/SOB, new or worsening lightheadedness/dizziness Related Data Home Medications ?Medication ?Instructions ?Recorded ?Confirmed metoprolol tartrate 25 mg tablet 25 mg PO BID 06/16/20 03/16/24 aspirin 81 mg tablet,delayed 81 mg PO DAILY 09/19/20 03/16/24 release ascorbic acid (vitamin C) 250 mg 250 mg PO DAILY 11/26/20 03/16/24 tablet (Vitamin C) hydralazine 25 mg tablet 25 mg PO BID 11/26/20 03/16/24 biotin 1,000 mcg chewable tablet 1,000 mcg PO DAILY 08/17/23 03/16/24 empagliflozin 10 mg tablet 10 mg PO DAILY 08/17/23 03/16/24 (Jardiance) losartan 25 mg tablet 25 mg PO DAILY 05/11/24 Previous Rx's ?Medication ?Instructions ?Recorded cholecalciferol (vitamin D3) 50 50 mcg PO DAILY #90 caps 01/27/21 mcg (2,000 unit) capsule acetaminophen 500 mg tablet 1,000 mg (2 x 500 mg) PO QID PRN 04/15/21 (Tylenol Extra Strength) fever or pain #14 tabs blood sugar diagnostic (FreeStyle #100 ea 08/21/21 Lite Strips) gabapentin 300 mg capsule 300 mg PO BEDTIME #90 caps 08/21/21 lancets 33 gauge (TRUEplus Lancets) #100 ea 08/21/21 atorvastatin 40 mg tablet 40 mg PO BEDTIME #90 tabs 12/15/21 pen needle, diabetic 32 gauge x #400 ea 06/13/23 (BD Kelly 2nd Gen Pen Needle) insulin glargine 100 unit/mL (3 20 unit (0.2 mL) subcut BEDTIME 90 10/04/23 mL) subcutaneous pen days #18 mL furosemide 20 mg tablet 40 mg (2 x 20 mg) PO DAILY #180 11/14/23 tabs Novolog FlexPen U-100 Insulin 100 22 unit (0.22 mL) subcut TID 90 02/06/24 unit/mL (3 mL) subcutaneous days #59.4 mL (insulin aspart U-100) semaglutide 0.25 mg or 0.5 mg (2 0.25 mg (0.368 mL) subcut QWEEK #3 02/06/24 mg/3 mL) subcutaneous pen injector mL (Ozempic) blood-glucose meter,continuous #1 ea 02/10/24 (FreeStyle Blake 3 Datil) blood-glucose meter,continuous #1 ea 02/10/24 (FreeStyle Blake 3 Datil) blood-glucose sensor (FreeStyle #2 ea 02/10/24 Blake 3 Sensor device) Allergies Allergy/AdvReac Type Severity Reaction Status Date / Time metformin [From GLUCOPHAGE] AdvReac Unknown DIARRHEA Verified 05/18/24 09:07 Review of Systems Review of Systems: Yes all other systems are reviewed and are negative Constitutional: Constitutional: Reports as per [facility] Past Medical History Attestation statement: The following information was validated with the patient. Source: old records reviewed Medical History Snoring Dyspnea on exertion PB (obstructive sleep apnea) Hypoxemia Breast calcification, right Obesity due to excess calories Peripheral nerve facial nerve paralysis History of CVA (cerebrovascular accident) GERD (gastroesophageal reflux disease) Asthma Morbid obesity Hypertension CKD stage 3 due to type 2 diabetes mellitus [facility] (current) use of insulin Diabetic nephropathy associated with type 2 diabetes mellitus Dyslipidemia Diabetes type 2, uncontrolled Surgical History Hx of tubal ligation Hx of bilateral cataract extraction Hx of hysterectomy History of appendectomy Family History Family History Father Cancer Mother Diabetes mellitus Social History Social History Household Members: None Housing: Apartment Do you presently have visiting nurse or other home services: Yes Alcohol intake: never Patient Tobacco Use Status: Never used Tobacco Second Hand Smoke Exposure: No Advance Directives: No Advance Directives Information Provided: Yes Advance Directives on File: No Advance Directives Date on File: 11/26/20 service: No Current occupational status: disabled Current occupation: rt handed Physical Exam Vital Signs: Vital Signs: Last Vital Signs Temp 97.6 F 05/18/24 13:58 Pulse 65 05/18/24 13:58 Resp 16 05/18/24 13:58 BP 147/66 H 05/18/24 13:58 Pulse Ox 99 05/18/24 13:58 O2 Del Method Room Air 05/18/24 13:58 BMI result Body Mass Index 41.2 Const: General: cooperative, healthy appearing and no acute distress Orientation/consciousness: patient oriented x3 Limitations: no limitations HEENT: Head: Yes normal to inspection and Yes atraumatic Ears: hearing grossly normal bilaterally General nose exam: Normal external nose present Face and sinus: Yes normal facial exam Eyes: General: appearance normal, both eyes and all related structures EOM: EOMs intact bilaterally Neck: Neck: Yes normal visual inspection and Yes no meningeal signs Resp: Effort & Inspection: normal respiratory effort and no respiratory distress Auscultation: clear to auscultation bilaterally, no crackles and no wheezes Cardio: Rate: regular rate Heart sounds: S1 normal heart sound present and S2 normal heart sound present Skin: Rashes: no rashes Wounds: no wounds Neuro: General: patient oriented x3, gait normal, tone normal, moves all extremities and no meningeal signs Cranial nerves: Yes CN's II-XII intact bilaterally Gait exam (Neuro): Normal gait present Extrem: General: Yes normal to inspection Course Course Course Narrative: -H&H at patient's baseline. Chronic CKD. Potassium elevated at 5.5. > will give p.o. Lokelma and repeat -1343--repeat potassium 5.0 after Lokelma Results discussed with patient including worrisome signs and symptoms and strict return precautions, and when to return to the emergency department. They verbalized understanding and feel safe for discharge at this time. Medications Administered Discontinued Medications Generic Name Dose Route Start Last Admin Trade Name Freq PRN Reason Stop Dose Admin Sodium Zirconium Cyclosilicate 5 gm 05/18/24 11:48 05/18/24 12:16 Sodium Zirconium Cyclosilicate 5 Gm Powd.Pack PO 05/18/24 11:49 5 gm ONCE ONE Administration Medical Decision Making Medical Decision Making [facility] Narrative: 73-year-old female with a past medical history of CKD, peripheral neuropathy, PB, HTN, diabetes, prior CVA, presenting to the ED sent in from [facility] for elevated potassium noted on outpatient labs on yesterday. On exam vital signs stable, NAD, nontoxic appearing, asymptomatic at present. Per chart review on 05/16 patient had potassium of 5.3. Will obtain repeat labs today. Rule out metabolic abnormalities. Plan: EKG, labs Please refer to course for remaining clinical decision making, interpretation of labs/imaging results, and discussions with consultants and/or family members. Differential Diagnosis Differential Diagnoses: The differential diagnosis associated with the presentation includes As above Admission/Observation Consideration of admission/observation: Escalation of care including admission/observation considered Lab Data [facility] Lab Attestation statement: I reviewed the patient's lab results. 05/18/24 10:20 05/18/24 13:08 Labs: Lab Results 05/18/24 05/18/24 05/18/24 Range/Units 10:20 11:07 13:08 WBC 4.7 L (4.8-10.8) X10*3/uL RBC 3.69 L (4.20-5.50) X10*6/uL Hgb 11.5 L (12.0-16.0) g/dl Hct 33.3 L (37.0-47.0) % MCV 90.2 (80.0-98.0) fL MCH 31.2 (27.0-33.0) pg MCHC 34.5 (31.0-35.0) g/dl RDW 11.8 (11.0-16.0) % Plt Count 175 (160-400) X10*3/uL MPV 10.3 (9.4-12.3) fL Immature Gran % (Auto) 0.2 (0.0-0.4) % Neut % (Auto) 59.4 (45-73) % Lymph % (Auto) 19.8 L (20-40) % Fleming % (Auto) 14.0 H (2-11) % Eos % (Auto) 6.2 H (0-4) % Baso % (Auto) 0.4 (0-2) % Lymph # (Auto) 0.9 L (1.2-4.9) X10*3/uL Fleming # (Auto) 0.7 (0.1-1.2) X10*3/uL Eos # (Auto) 0.3 (0.0-0.4) X10*3/uL Baso # (Auto) 0.0 (0.0-0.2) X10*3/uL Abs Immat Gran (auto) 0.01 (0.00-0.03) X10*3/uL Absolute Neuts (auto) 2.8 (2.0-8.3) x10*3/uL Absolute Nucleated RBC 0.000 (0.0-0.012) X10*3/uL Nucleated RBC % (auto) 0.0 (0.0-0.2) /100WBC Sodium 142 142 (135-145) mmol/L Potassium 5.5 H 5.0 (3.3-5.1) mmol/L Chloride 108 107 (96-108) mmol/L Carbon Dioxide 29 30 H (22-29) mmol/L Anion Gap 11 L 10 L (12-20) BUN 39 H 37 H (9-16) mg/dL Creatinine 1.76 H 1.68 H (0.5-1.4) mg/dL Estim Creat Clear Calc 21.6 22.6 Estimated GFR 28 30 Random Glucose 169 H 151 H (60-115) mg/dL Calcium 9.3 9.5 (8.4-10.2) mg/dL Magnesium 2.5 (1.6-2.6) mg/dL Independent Interpretation I performed an independent interpretation of an: EKG (My interpretation EKG normal sinus rhythm rate of 68. QTC 440. No STEMI. ) Radiology Impression Discussion of test interpretation with radiology: I have reviewed the radiologist's reading. Independent Historian Clinical information obtained from an independent historian. History obtained from or confirmed by: Other (daughter) External Record Review External record reviewed: Inpatient record, Office record, Outpatient record, Prior outpatient labs, Prior outpatient radiology, Primary care record and Outside ED record Tests considered The following testing was considered but not selected: As above Prescription Management I considered prescription management with: Other Chronic Conditions Patient?s care impacted by: Diabetes and Other (CKD) Social Determinants Patient?s care significantly limited by Social Determinants of Health including: Low income and Other Social Determinant of Health Discharge Plan Discharge Clinical Impression: Hyperkalemia Patient Disposition: Home, Self-Care Instructions: Hyperkalemia (ED) Additional Instructions: Your potassium was 5.5 today. We gave you a medication to lower it. Your potassium is now 5.0 You need to have close follow-up with your kidney doctor Continue home prescribed medications Have repeat labs in 5 days. If you develop any symptoms, chest pain, shortness of breath, lightheadedness/dizziness return to the ED immediately Prescriptions: No Action cholecalciferol (vitamin D3) 50 mcg (2,000 unit) capsule 50 mcg PO DAILY Qty: 90 1RF atorvastatin 40 mg tablet 40 mg PO BEDTIME Qty: 90 0RF Rx Instructions: SEND FUTURE REFILLS TO PCP furosemide 20 mg tablet 40 mg PO DAILY Qty: 180 3RF (DME) FreeStyle Blake 3 Datil Misc See Rx Instructions .ROUTE .MEDSUPPLY Qty: 1 0RF Rx Instructions: As directed (DME) FreeStyle Blake 3 Datil Misc See Rx Instructions .ROUTE .MEDSUPPLY Qty: 1 0RF Rx Instructions: Use daily As directed to monitor type 2 diabetes (DME) FreeStyle Blake 3 Sensor Device See Rx Instructions .ROUTE .MEDSUPPLY Qty: 2 11RF Rx Instructions: Apply every 14 days As directed acetaminophen [Tylenol Extra Strength] 500 mg tablet 1,000 mg PO QID PRN (Reason: fever or pain) Qty: 14 0RF hydralazine 25 mg tablet 25 mg PO BID Rx Instructions: has not started ascorbic acid (vitamin C) [Vitamin C] 250 mg Tablet 250 mg PO DAILY metoprolol tartrate 25 mg tablet 25 mg PO BID aspirin 81 mg tablet,delayed release (DR/EC) 81 mg PO DAILY (DME) FreeStyle Lite Strips Strip See Rx Instructions .ROUTE .MEDSUPPLY Qty: 100 11RF Rx Instructions: As directed three times a day (DME) lancets [TRUEplus Lancets] 33 gauge misc See Rx Instructions .ROUTE .MEDSUPPLY Qty: 100 11RF Rx Instructions: As directed 3x/day gabapentin 300 mg capsule 300 mg PO BEDTIME Qty: 90 5RF biotin 1,000 mcg tablet,chewable 1,000 mcg PO DAILY Jardiance 10 mg tablet 10 mg PO DAILY (DME) pen needle, diabetic [BD Kelly 2nd Gen Pen Needle] 32 gauge x 5/32 needle See Rx Instructions .MEDSUPPLY Qty: 400 4RF Rx Instructions: 5 times a day insulin glargine 100 unit/mL (3 mL) insulin pen 20 unit subcut BEDTIME 90 Days Qty: 18 1RF Ozempic 0.25 mg or 0.5 mg (2 mg/3 mL) pen injector 0.25 mg subcut QWEEK Qty: 3 3RF Rx Instructions: for 4 weeks insulin aspart U-100 [Novolog FlexPen U-100 Insulin] 100 unit/mL (3 mL) insulin pen 22 unit subcut TID 90 Days Qty: 59.4 2RF losartan 25 mg tablet 25 mg PO DAILY Referrals: Garrison Silverio MD [Physician] - Ventura Shi MD [Primary Care Provider] - 3 days Interventions: ED Discharge Assessment Last Done: 05/18/24 13:58 Discharge Date/Time: 05/18/24 14:00 Print Language: Upper Sorbian
[2024-05-18 10:23] LABS: MANUAL DIFF FLAG NO
[2024-05-18 10:25] LABS: Basophils Percent Auto 0.4 % (0-2); Eosinophils Absolute Auto 0.3 X10*3/uL (0.0-0.4); Eosinophils Percent Auto 6.2 % (0-4); Hematocrit 33.3 % (37.0-47.0); Hemoglobin 11.5 g/dl (12.0-16.0); Imm Gran Abs Auto 0.01 X10*3/uL (0.00-0.03); Imm Gran Pct Auto 0.2 % (0.0-0.4); Lymphocytes Absolute Auto 0.9 X10*3/uL (1.2-4.9); Lymphocytes Percent Auto 19.8 % (20-40); Mean Corpuscular HGB Conc 34.5 g/dl (31.0-35.0); Mean Corpuscular Hemoglobin 31.2 pg (27.0-33.0); Mean Corpuscular Volume 90.2 fL (80.0-98.0); Mean Platelet Volume 10.3 fL (9.4-12.3); Monocytes Absolute Auto 0.7 X10*3/uL (0.1-1.2); Neutrophils Absolute Auto 2.8 x10*3/uL (2.0-8.3); Neutrophils Percent Auto 59.4 % (45-73); Platelet Count 175 X10*3/uL (160-400); Red Blood Count 3.69 X10*6/uL (4.20-5.50); Red Cell Distribution Width 11.8 % (11.0-16.0); White Blood Count 4.7 X10*3/uL (4.8-10.8)
[2024-05-18 11:27] LABS: Anion Gap 11 (12-20); Blood Urea Nitrogen 39 mg/dL (9-16); Calcium 9.3 mg/dL (8.4-10.2); Carbon Dioxide 29 mmol/L (22-29); Chloride 108 mmol/L (96-108); Creatinine Clr Calc Pharmacy 21.6; Estimated Glomerular Filt Rate 28; Glucose Random 169 mg/dL (60-115); Magnesium 2.5 mg/dL (1.6-2.6); Potassium 5.5 mmol/L (3.3-5.1); Sodium 142 mmol/L (135-145)
[2024-05-18] MEDS: Sodium Zirconium Cyclosilicate 5 GM POWD.PACK PO (12:16)
[2024-05-18 13:34] LABS: Anion Gap 10 (12-20); Blood Urea Nitrogen 37 mg/dL (9-16); Calcium 9.5 mg/dL (8.4-10.2); Carbon Dioxide 30 mmol/L (22-29); Chloride 107 mmol/L (96-108); Creatinine Clr Calc Pharmacy 22.6; Estimated Glomerular Filt Rate 30; Glucose Random 151 mg/dL (60-115); Sodium 142 mmol/L (135-145)
[2024-05-18 13:58] VITALS: BP 147/66; PULSE 65; RESP 16; TEMP 36.4; O2SAT 99
== END 2024-05-18 14:00 | disposition home or self-care (01) ==
PROVIDERS: Physician Assistant; Emergency Provider Emergency Medicine Emergency Medical Services; PCP Internal Medicine
DX: R79.89 Other specified abnormal findings of blood chemistry (principal); E23.2 Diabetes insipidus; I13.10 Hypertensive heart and chronic kidney disease without heart failure, with stage 1 through stage 4 chronic kidney disease, or unspecified chronic kidney disease; E11.22 Type 2 diabetes mellitus with diabetic chronic kidney disease; N18.30 Chronic kidney disease, stage 3 unspecified; Z79.4 Long term (current) use of insulin; Z79.899 Other long term (current) drug therapy
CPT/HCPCS: 36415; 80048; 80051; 82565; 83735; 84520; 85025; 93005; 99283

== ENCOUNTER → 2024-05-18 09:06 | Outpatient (BNV) | payer OTHER, SELFPAY | PROVIDERS: Emergency Provider Emergency Medicine Emergency Medical Services; PCP Internal Medicine; Visit Provider Internal Medicine Cardiovascular Disease | DX: E87.5 Hyperkalemia (principal) | CPT/HCPCS: 93010 ==

== ENCOUNTER 2024-05-25 08:39 | Outpatient (REF) | payer OTHER, SELFPAY ==
[2024-05-25 12:29] LABS: Anion Gap 14 (12-20); Blood Urea Nitrogen 36 mg/dL (9-16); Carbon Dioxide 26 mmol/L (22-29); Chloride 106 mmol/L (96-108); Estimated Glomerular Filt Rate 28; Potassium 5.7 mmol/L (3.3-5.1); Sodium 140 mmol/L (135-145)
== END 2024-05-25 08:40 | disposition home or self-care (01) ==
LOC: HO.HHCL 08:39
PROVIDERS: Visit Provider Internal Medicine Nephrology
DX: E11.22 Type 2 diabetes mellitus with diabetic chronic kidney disease (principal); N18.30 Chronic kidney disease, stage 3 unspecified
CPT/HCPCS: 36415; 80051; 82565; 84520

== ENCOUNTER 2024-05-28 15:27 | Outpatient (AMB) | payer OTHER, SELFPAY ==
--- NOTE | 2024-05-28 15:30 | HO.NEPHOV ---
Vital Signs 05/28/24 15:36 Height 4 ft 5 in Weight 164 lb 4 oz BMI 41.1 BP 138/70 Blood Pressure Location Rt brachial Position Sitting Pulse 72 Pulse Source Pulse Oximeter Pulse Oximetry (%) 98 Oxygen Delivery Method Room Air Intake Visit Reasons: Pt seen at [facility] ER on 05/18/24-LVM Casework Specialist Required: Yes Casework Specialist Language: Sheep Shearer Services: Casework Specialist Offered & Declined ([facility] Casework Specialist services refused. Pt's daughter will interpret. ) Accompanied by: Daughter Allergies metformin [From GLUCOPHAGE] Adverse Reaction (Unknown, Verified 05/28/24 15:41) DIARRHEA HPI Comments Details: Sindi was seen in follow-up of her chronic kidney disease due to biopsy-proven diabetic nephropathy. Her blood sugar control continues to be labile. She has history of cerebrovascular accident. She has hypertension. She had no deficits from CVA. Blood pressure is better controlled. She has not good with her diet and weight loss. She is tolerating Jardiance without any side effects . She denies using any nonsteroidal anti-inflammatories but consumes normal sodium and has a normal diet. she was on angiotensin receptor claude in the past which she did not tolerate very well. She denies chest pain, shortness of breath, paroxysmal nocturnal dyspnea, orthopnea, pedal edema, urinary symptoms or orthostasis. She tries to maintain herself with good hydration. She has been having facial swelling and pedal edema which resolved with diuresis. She is not very compliant with low sodium diet. Her serum potassium has been high and was seen in ER. She has been on losartan which has been put on hold since she has been having hyperkalemia. She has been started on Kayexalate once a week. 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 Diabetic nephropathy associated with type 2 diabetes mellitus Dyslipidemia Diabetes type 2, uncontrolled Surgical History Hx of tubal ligation Hx of bilateral cataract extraction Hx of hysterectomy History of appendectomy Family History Father Cancer Mother Diabetes mellitus Social History Household Members: None Housing: Apartment Do you presently have visiting nurse or other home services: Yes Alcohol intake: never Patient Tobacco Use Status: Never used Tobacco Second Hand Smoke Exposure: No Advance Directives Date on File: 11/26/20 service: No Current occupational status: disabled Current occupation: rt handed Female Reproductive History Menstrual Age of Menarche: 12 Review of Systems Const All systems reviewed & are unremarkable except as noted in HPI and below Physical Exam Vital Signs: Last Vital Signs Pulse 72 05/28/24 15:36 BP 138/70 05/28/24 15:36 Pulse Ox 98 05/28/24 15:36 Oxygen Delivery Method Room Air 05/28/24 15:36 BMI result Body Mass Index 41.1 Const General: comfortable and no acute distress Orientation/consciousness: patient oriented x3 HEENT Head: Yes normocephalic Mouth: Normal oral and palatal mucosa present Eyes EOM: EOMs intact bilaterally Neck Neck: Yes supple Resp Auscultation: clear to auscultation bilaterally Cardio Jugular venous distension: no JVD Rate: regular rate GI Palpation (GI): Soft to palpation Auscultation: normal bowel sounds General: Yes no CVA tenderness Back/Spine/Pelvis Back: no CVA tenderness Skin General skin exam: no rashes or lesions noted Neuro General: patient oriented x3 and moves all extremities Extrem General: Yes no pedal edema Results Reviewed Nephrology Results: Hgb 11.5 g/dl (12.0-16.0) L 05/18/24 WBC 4.7 X10*3/uL (4.8-10.8) L 05/18/24 Plt Count 175 X10*3/uL (160-400) 05/18/24 Sodium 140 mmol/L (135-145) 05/25/24 Potassium 5.7 mmol/L (3.3-5.1) H 05/25/24 Chloride 106 mmol/L (96-108) 05/25/24 Carbon Dioxide 26 mmol/L (22-29) 05/25/24 BUN 36 mg/dL (9-16) H 05/25/24 Creatinine 1.79 mg/dL (0.5-1.4) H 05/25/24 Calcium 9.5 mg/dL (8.4-10.2) 05/18/24 Assessment & Plan Assessment & Plan (1) CKD stage 3 due to type 2 diabetes mellitus: Code(s): E11.22 - Type 2 diabetes mellitus with diabetic chronic kidney disease; N18.30 - Chronic kidney disease, stage 3 unspecified Category: Medical (2) Diabetic nephropathy associated with type 2 diabetes mellitus: Code(s): E11.21 - Type 2 diabetes mellitus with diabetic nephropathy Category: Medical (3) Hypertension: Code(s): I10 - Essential (primary) hypertension Category: Medical Qualifiers: Hypertension type: primary hypertension Qualified Code(s): I10 - Essential (primary) hypertension (4) Hyperkalemia: Code(s): E87.5 - Hyperkalemia Category: Medical Plan Sindi has 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 Her renal biopsy in the past showed significant disease from diabetes and hypertension. She had been off angiotensin receptor claude now, since she had hyperkalemia. I plan to restart it later. She should be on a low-potassium diet. She is not sure why she is not taking Jardiance. She should maintain a tighter blood sugar control. She should cut back sodium in the diet and lose weight. She should maintain good hydration and avoid nonsteroidal anti-inflammatories. She should continue Kayexalate 30 Gram once a week for now. I have ordered follow up blood work. I did not make any other medication changes today. Follow up appointment given Orders: Orders Blood Urea Nitrogen 3 Weeks E11.22 - Type 2 diabetes mellitus with diabetic chronic kidney disease, E87.5 - Hyperkalemia, N18.30 - Chronic kidney disease, stage 3 unspecified, R06.83 - Snoring Creatinine 3 Weeks E11.22 - Type 2 diabetes mellitus with diabetic chronic kidney disease, E87.5 - Hyperkalemia, N18.30 - Chronic kidney disease, stage 3 unspecified, R06.83 - Snoring Electrolytes 3 Weeks E11.22 - Type 2 diabetes mellitus with diabetic chronic kidney disease, E87.5 - Hyperkalemia, N18.30 - Chronic kidney disease, stage 3 unspecified, R06.83 - Snoring Coding Level of Care Code Est Pt Level 4 (08523) Diagnoses CKD stage 3 due to type 2 diabetes mellitus E11.22; N18.30 Diabetic nephropathy associated with type 2 diabetes mellitus E11.21 Primary hypertension I10 Hypertension type: primary hypertension Hyperkalemia E87.5
[2024-05-28 15:36] VITALS: BP 138/70; PULSE 72; O2SAT 98; BMI 41.1
== END 2024-05-28 16:39 | disposition home or self-care (01) ==
LOC: HO.HKA 15:28
PROVIDERS: PCP Internal Medicine; Visit Provider Internal Medicine Nephrology
DX: I12.9 Hypertensive chronic kidney disease with stage 1 through stage 4 chronic kidney disease, or unspecified chronic kidney disease (principal); E11.22 Type 2 diabetes mellitus with diabetic chronic kidney disease; N18.30 Chronic kidney disease, stage 3 unspecified; E87.5 Hyperkalemia
CPT/HCPCS: 99214

== ENCOUNTER → 2024-05-28 15:27 | Outpatient (BNVA) | payer OTHER, SELFPAY | PROVIDERS: PCP Internal Medicine; Visit Provider Internal Medicine Nephrology | DX: E11.21 Type 2 diabetes mellitus with diabetic nephropathy (principal); E11.22 Type 2 diabetes mellitus with diabetic chronic kidney disease; I12.9 Hypertensive chronic kidney disease with stage 1 through stage 4 chronic kidney disease, or unspecified chronic kidney disease; N18.30 Chronic kidney disease, stage 3 unspecified; E87.5 Hyperkalemia; Z86.73 Personal history of transient ischemic attack (TIA), and cerebral infarction without residual deficits | CPT/HCPCS: 99212 ==

== ENCOUNTER 2024-06-22 10:51 | Outpatient (REF) | payer OTHER, SELFPAY ==
[2024-06-22 11:27] LABS: Estimated Average Glucose 183 mg/dL; Hemoglobin A1C 156.3946 umol/L
[2024-06-22 11:30] LABS: Alanine Aminotransferase 28 U/L (0-31); Albumin Level 3.7 g/dL (3.5-5.0); Alkaline Phosphatase 113 U/L (39-117); Anion Gap 16 (12-20); Aspartate Amino Transferase 26 U/L (5-31); Bilirubin Total 0.4 mg/dL (0.0-1.0); Blood Urea Nitrogen 35 mg/dL (9-16); Calcium 9.3 mg/dL (8.4-10.2); Carbon Dioxide 24 mmol/L (22-29); Chloride 105 mmol/L (96-108); Estimated Glomerular Filt Rate 26; Glucose Fasting 231 mg/dL (60-99); Potassium 4.5 mmol/L (3.3-5.1); Sodium 140 mmol/L (135-145); Total Protein 6.9 g/dL (6.5-8.0)
[2024-06-22 11:51] LABS: Microalbum/Creatinine Ratio Ur 489.3 ug/mg cr (<30)
== END 2024-06-22 10:52 | disposition home or self-care (01) ==
LOC: HO.LAB 10:51
PROVIDERS: Absent Provider Physician Assistant; PCP Internal Medicine; Visit Provider Internal Medicine Nephrology
DX: I10 Essential (primary) hypertension (principal); E11.21 Type 2 diabetes mellitus with diabetic nephropathy; Z79.4 Long term (current) use of insulin
CPT/HCPCS: 36415; 80053; 82043; 82570; 83036

== ENCOUNTER 2024-06-25 10:39 | Outpatient (AMB) | payer OTHER, SELFPAY ==
[2024-06-25 10:45] VITALS: BP 142/82; PULSE 71; BMI 43.6
--- NOTE | 2024-06-25 10:45 | MHC.OFFVIS ---
Vital Signs 06/25/24 10:45 Height 4 ft 5 in Weight 174 lb 2.643 oz BMI 43.6 BP 142/82 H Blood Pressure Location Lt brachial Position Sitting Pulse 71 Pulse Source Pulse Oximeter Intake Visit Reasons: DM/CONFIRMED Intake Note: Patient presents today for D2MT follow up visit. Last Diabetic Eye exam: 2022 Last Podiatry Visit: 03/2024 Random Glucose: 105 mg/dl HgA1c:8.0% 06/22/24 Hand Stonecutter Required: Yes Hand Stonecutter Language: Eeg Technician Services: Hand Stonecutter Offered & Declined Accompanied by: Daughter Allergies metformin [From GLUCOPHAGE] Adverse Reaction (Unknown, Verified 06/25/24 10:52) DIARRHEA Medication List - Last Reconciled 06/25/24 by Suyapa Best PA-C acetaminophen (Tylenol Extra Strength) 1,000 mg (2 x 500 mg) PO QID PRN aspirin 81 mg PO DAILY atorvastatin 40 mg PO BEDTIME blood sugar diagnostic (FreeStyle Lite Strips) As directed three times a day blood-glucose meter,continuous (FreeStyle Blake 3 [place]) Use daily As directed to monitor type 2 diabetes blood-glucose meter,continuous (FreeStyle Blkae 3 [place]) As directed blood-glucose sensor (FreeStyle Blake 3 Sensor device) Apply every 14 days As directed furosemide 40 mg (2 x 20 mg) PO DAILY gabapentin 300 mg PO BEDTIME hydralazine 25 mg PO BID insulin glargine 30 units (0.3 mL) subcut BEDTIME 90 days lancets (TRUEplus Lancets) As directed 3x/day losartan 25 mg PO DAILY metoprolol tartrate 25 mg PO BID Novolog FlexPen U-100 Insulin (insulin aspart U-100) 10 units (0.1 mL) subcut TID 90 days NS pen needle, diabetic (BD Kelly 2nd Gen Pen Needle) 5 times a day sodium polystyrene sulfonate 30 grams PO .once a week HPI HPI DM/CONFIRMED: Details: Patient is a 73-year-old female with a significant past medical history of CKD, peripheral neuropathy, PB, hypertension, type 2 diabetes, insulin-dependent, prior CVA presenting today for follow-up regarding her diabetes. Daughter here for translation. Endo: Her last A1c was 8 She is currently on Lantus 20 units and NovoLog 22 units t.i.d., and ozempic was added at last visit of 0.25 mg q weekly but did not tolerate. She states that she also stopped the Jardiance because she did not want to take it. -she does notice when she uses the 22 units of the NovoLog her sugars drop quickly so she does not always take it. -mounjaro caused diarrhea so she discontinued, trulicity was ineffective, ozempic did not tolerate. Refuses jardiance (she does not know why just refuses). CGM- Her usage is 98 %, average glucose 197, glucose variability 37.2%. Very high 25 %, high 28 %, in range 47 %,, no low blood sugars. - She appears to be high between 12:00 and 21:00. CV: Blood pressure today in the office is 142/82. She is currently on metoprolol 25 mg b.i.d., hydralazine 25 mg twice a day, furosemide 40 mg daily. cholesterol is controlled with atorvastatin 40 mg. Last LDL was 64. She follows Cardiology and Nephrology. 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 Diabetic nephropathy associated with type 2 diabetes mellitus Dyslipidemia Diabetes type 2, uncontrolled Surgical History Hx of tubal ligation Hx of bilateral cataract extraction Hx of hysterectomy History of appendectomy Family History Father Cancer Mother Diabetes mellitus Social History Household Members: None Housing: Apartment Do you presently have visiting nurse or other home services: Yes Alcohol intake: never Patient Tobacco Use Status: Never used Tobacco Second Hand Smoke Exposure: No Advance Directives Date on File: 11/26/20 service: No Current occupational status: disabled Current occupation: rt handed Female Reproductive History Menstrual Age of Menarche: 12 Physical Exam Vital Signs: Last Vital Signs Pulse 71 06/25/24 10:45 BP 142/82 H 06/25/24 10:45 BMI result Body Mass Index 43.6 Const Orientation/consciousness: patient oriented x3 Neck Neck: Yes no lymphadenopathy Thyroid: Thyroid normal Carotids: no bruits Resp Auscultation: clear to auscultation bilaterally Cardio Rate: regular rate Rhythm: regular rhythm Heart sounds: S1 normal heart sound present and S2 normal heart sound present Peripheral pulses: dorsalis pedis present Neuro General: patient oriented x3, gait normal and no focal motor deficits Office Procedures Glucose Monitoring Details Details: See [facility] [address] - Glucose monitoring, continuous-physician I&R Procedure code (CPT) selection complete Results Reviewed Results Reviewed: Laboratory Tests 06/22/24 06/22/24 11:09 11:11 Sodium 140 Potassium 4.5 D Chloride 105 Carbon Dioxide 24 Anion Gap 16 Creatinine 1.87 H Estimated GFR 26 Fasting Glucose 231 H Hemoglobin A1c % 8.0 H Urine Creatinine 56.40 Urine Microalbumin 276.0 Microalb/Creat Ratio 489.3 H Assessment & Plan Assessment & Plan (1) Diabetic nephropathy associated with type 2 diabetes mellitus: Code(s): E11.21 - Type 2 diabetes mellitus with diabetic nephropathy Category: Medical Plan: Discussed that she would benefit from Jardiance but she refuses. I will increase Lantus to 30 units. NovoLog 10 units 3 times a day with meals. She does not want to try any additional medications. Encouraged compliance with her CGM. I have also encouraged compliance with medications and diet. (2) Hypertension: Code(s): I10 - Essential (primary) hypertension Category: Medical Qualifiers: Hypertension type: primary hypertension Qualified Code(s): I10 - Essential (primary) hypertension Plan: A little elevated today above goal. Last blood pressure a few weeks ago was normal. She will monitor this at home. (3) Morbid obesity with BMI of 40.0-44.9, adult: Code(s): E66.01 - Morbid (severe) obesity due to excess calories; Z68.41 - Body mass index [BMI] 40.0-44.9, adult Category: Medical Plan: We did discuss that she has gained weight. Does endorse some poor choices around the holidays. I have encouraged her to reduce her carbohydrate and sugar intake. (4) Dyslipidemia: Code(s): E78.5 - Hyperlipidemia, unspecified Category: Medical Plan: Compliant with atorvastatin. Medications: Changed From insulin glargine 20 units (0.2 mL) subcut BEDTIME 90 days 18 mL 1RF E11.65 - Type 2 diabetes mellitus with hyperglycemia To insulin glargine 30 units (0.3 mL) subcut BEDTIME 90 days 27 mL 1RF E11.65 - Type 2 diabetes mellitus with hyperglycemia From Novolog FlexPen U-100 Insulin (insulin aspart U-100) 22 units (0.22 mL) subcut TID 90 days 59.4 mL 2RF NS E11.65 - Type 2 diabetes mellitus with hyperglycemia To Novolog FlexPen U-100 Insulin (insulin aspart U-100) with meals 10 units (0.1 mL) subcut TID 90 days 27 mL 2RF NS E11.65 - Type 2 diabetes mellitus with hyperglycemia Coding Level of Care Code Est Pt Level 4 (68118) Diagnoses Diabetic nephropathy associated with type 2 diabetes mellitus E11.21 Primary hypertension I10 Hypertension type: primary hypertension Morbid obesity with BMI of 40.0-44.9, adult E66.01; Z68.41 Dyslipidemia E78.5 CPT Codes Details - CPT: 06385 - Glucose monitoring, continuous-physician I&R ([id number])
[2024-06-25 11:06] LABS: Glucose, Whole Blood 105 mg/dL (60-115)
== END 2024-06-25 11:28 | disposition home or self-care (01) ==
PROVIDERS: PCP Internal Medicine; Visit Provider Physician Assistant
DX: E11.21 Type 2 diabetes mellitus with diabetic nephropathy (principal); I10 Essential (primary) hypertension; E66.01 Morbid (severe) obesity due to excess calories; Z68.41 Body mass index [BMI] 40.0-44.9, adult; E78.5 Hyperlipidemia, unspecified

== ENCOUNTER → 2024-06-25 10:39 | Outpatient (BNVA) | payer OTHER, SELFPAY | PROVIDERS: PCP Internal Medicine; Visit Provider Physician Assistant | DX: E11.21 Type 2 diabetes mellitus with diabetic nephropathy (principal); I10 Essential (primary) hypertension; E66.01 Morbid (severe) obesity due to excess calories; Z68.41 Body mass index [BMI] 40.0-44.9, adult; E78.5 Hyperlipidemia, unspecified; Z71.3 Dietary counseling and surveillance | CPT/HCPCS: 82947; 99212 ==

== ENCOUNTER 2024-07-02 10:56 | Outpatient (AMB) | payer OTHER, SELFPAY ==
--- NOTE | 2024-07-02 11:01 | HO.NEPHOV_ITS ---
Vital Signs 07/02/24 11:06 Height 4 ft 5 in Weight 174 lb 8 oz BMI 43.7 BP 184/60 H Blood Pressure Location Rt brachial Position Sitting Pulse 62 Pulse Source Pulse Oximeter Pulse Oximetry (%) 95 Oxygen Delivery Method Room Air Intake Visit Reasons: CKD/ Conf Boiler Blower Services: Boiler Blower Offered & Declined ([facility] housekeeping and laundry team leader services refused.) Accompanied by: Daughter Allergies metformin [From GLUCOPHAGE] Adverse Reaction (Unknown, Verified 07/02/24 11:04) DIARRHEA HPI Comments Details: Sindi was seen in follow-up of her chronic kidney disease due to biopsy-proven diabetic nephropathy. Her blood sugar control continues to be labile. She has history of cerebrovascular accident. She has hypertension. She had no deficits from CVA. Blood pressure is better controlled. She has not good with her diet and weight loss. She denies using any nonsteroidal anti-inflammatories but consumes normal sodium and has a normal diet. she was on angiotensin receptor claude in the past which she did not tolerate very well. She denies chest pain, shortness of breath, paroxysmal nocturnal dyspnea, orthopnea, pedal edema, urinary symptoms or orthostasis. She tries to maintain herself with good hydration. She has been having facial swelling and pedal edema which resolved with diuresis. She is not very compliant with low sodium diet. She has been on losartan which has been put on hold since she has been having hyperkalemia. She has been started on Kayexalate once a week. 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 Diabetic nephropathy associated with type 2 diabetes mellitus Dyslipidemia Diabetes type 2, uncontrolled Surgical History Hx of tubal ligation Hx of bilateral cataract extraction Hx of hysterectomy History of appendectomy Family History Father Cancer Mother Diabetes mellitus Social History Household Members: None Housing: Apartment Do you presently have visiting nurse or other home services: Yes Alcohol intake: never Patient Tobacco Use Status: Never used Tobacco Second Hand Smoke Exposure: No Advance Directives Date on File: 11/26/20 service: No Current occupational status: disabled Current occupation: rt handed Female Reproductive History Menstrual Age of Menarche: 12 Review of Systems Const All systems reviewed & are unremarkable except as noted in HPI and below Physical Exam Vital Signs: Last Vital Signs Pulse 62 07/02/24 11:06 BP 184/60 H 07/02/24 11:06 Pulse Ox 95 07/02/24 11:06 Oxygen Delivery Method Room Air 07/02/24 11:06 BMI result Body Mass Index 43.7 Const General: comfortable and no acute distress Orientation/consciousness: patient oriented x3 HEENT Head: Yes normocephalic Mouth: Normal oral and palatal mucosa present Eyes EOM: EOMs intact bilaterally Neck Neck: Yes supple Resp Auscultation: clear to auscultation bilaterally Cardio Jugular venous distension: no JVD Rate: regular rate GI Palpation (GI): Soft to palpation Auscultation: normal bowel sounds General: Yes no CVA tenderness Back/Spine/Pelvis Back: no CVA tenderness Skin General skin exam: no rashes or lesions noted Neuro General: patient oriented x3 and moves all extremities Extrem General: Yes no pedal edema Results Reviewed Nephrology Results: Hgb 11.5 g/dl (12.0-16.0) L 05/18/24 WBC 4.7 X10*3/uL (4.8-10.8) L 05/18/24 Plt Count 175 X10*3/uL (160-400) 05/18/24 Sodium 140 mmol/L (135-145) 06/22/24 Potassium 4.5 mmol/L (3.3-5.1) 06/22/24 Chloride 105 mmol/L (96-108) 06/22/24 Carbon Dioxide 24 mmol/L (22-29) 06/22/24 BUN 35 mg/dL (9-16) H 06/22/24 Creatinine 1.87 mg/dL (0.5-1.4) H 06/22/24 Calcium 9.3 mg/dL (8.4-10.2) 06/22/24 Urine Creatinine 56.40 mg/dL 06/22/24 Assessment & Plan Assessment & Plan (1) CKD stage 3 due to type 2 diabetes mellitus: Code(s): E11.22 - Type 2 diabetes mellitus with diabetic chronic kidney disease; N18.30 - Chronic kidney disease, stage 3 unspecified Category: Medical (2) Hypertension: Code(s): I10 - Essential (primary) hypertension Category: Medical Qualifiers: Hypertension type: primary hypertension Qualified Code(s): I10 - Essential (primary) hypertension Plan Sindi has 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 Her renal biopsy in the past showed significant disease from diabetes and hypertension. She had been off angiotensin receptor claude now, since she had hyperkalemia. I plan to restart it later. She should be on a low-potassium diet. I started her on 10 mg Jardiance. She should maintain a tighter blood sugar control. She should cut back sodium in the diet and lose weight. She should maintain good hydration and avoid nonsteroidal anti-inflammatories. She should continue Kayexalate 30 Gram once a week for now. I have ordered follow up blood work. Follow up appointment given Orders: Orders Creatinine 1 Month E11.22 - Type 2 diabetes mellitus with diabetic chronic kidney disease, I10 - Essential (primary) hypertension, N18.30 - Chronic kidney disease, stage 3 unspecified Blood Urea Nitrogen 1 Month E11.22 - Type 2 diabetes mellitus with diabetic chronic kidney disease, I10 - Essential (primary) hypertension, N18.30 - Chronic kidney disease, stage 3 unspecified Electrolytes 1 Month E11.22 - Type 2 diabetes mellitus with diabetic chronic kidney disease, I10 - Essential (primary) hypertension, N18.30 - Chronic kidney disease, stage 3 unspecified Medications: New empagliflozin (Jardiance) 10 mg PO DAILY 30 tabs 3RF Coding Level of Care Code Est Pt Level 4 (63226) Diagnoses CKD stage 3 due to type 2 diabetes mellitus E11.22; N18.30 Primary hypertension I10 Hypertension type: primary hypertension
[2024-07-02 11:06] VITALS: BP 184/60; PULSE 62; O2SAT 95; BMI 43.7
== END 2024-07-02 11:35 | disposition home or self-care (01) ==
PROVIDERS: PCP Internal Medicine; Visit Provider Internal Medicine Nephrology
DX: I12.9 Hypertensive chronic kidney disease with stage 1 through stage 4 chronic kidney disease, or unspecified chronic kidney disease (principal); E11.22 Type 2 diabetes mellitus with diabetic chronic kidney disease; N18.30 Chronic kidney disease, stage 3 unspecified
CPT/HCPCS: 99214

== ENCOUNTER → 2024-07-02 10:56 | Outpatient (BNVA) | payer OTHER, SELFPAY | PROVIDERS: PCP Internal Medicine; Visit Provider Internal Medicine Nephrology | DX: E11.22 Type 2 diabetes mellitus with diabetic chronic kidney disease (principal); I12.9 Hypertensive chronic kidney disease with stage 1 through stage 4 chronic kidney disease, or unspecified chronic kidney disease; N18.30 Chronic kidney disease, stage 3 unspecified | CPT/HCPCS: 99212 ==

== ENCOUNTER 2024-09-03 10:00 | Outpatient (REF) | payer OTHER, SELFPAY ==
--- OUTSIDE RECORDS SUMMARY | 2024-09-03 10:53 | XMS_ITS | Encounter Summary ---
Author Organization [employer] Address [address] [place] [address] Care Team Providers Care Supervisor Scrap Preparation Name Role Phone Ventura Tavares MD Primary Care Provide r Reason for Visit * Reason Onset Date Comments Error (VOID this visit) 08/27/2024 Encounter Details Date Type Department Care Team ([facility] st Contact Info) Description 08/27/2024 Telephone [facility] [address] [place] [address] Ventura Tavares MD [address], [place] [id number] Error (VOID this visit) Social History Tobacco Use Types Packs/Day Years Used Date Smoking Tobacco: Never Passive Smoke Exposure: Never Smokeless Tobacco: Never Alcohol Use Standard Drinks/Week Comments Never 0 (1 standard drink = 0.6 oz pur e alcohol) Depression Answer Date Recorded Patient Health Questionnaire-9 Score 0 05/15/2024 Patient Health Questionnaire-9 Score 0 05/15/2024 Last PHQ-9: Questionnaire Data Not on file 1 Housing Stability Answer Date Recorded What is your housing situation today? I have alisha hodges 05/15/[address] you li ve. Do you have problems with any of the following? None of the above 05/15/2024 Food Insecurity Answer Date Recorded Within the past 12 months, y ou worried that your food would run out before you got money to buy more: Never True 05/15/2024 Within the past 12 months,th e food you bought just didn't last and you didn't have enough money to get more: Never True Transportation Answer Date Recorded In the past 12 months, has l ack of transportation kept you from medical appts, meetings, work or from getting things needed for daily living? No 05/03/2024 Utilities Answer Date Recorded In the past 12 months, has t he electric, gas, oil or water company threatened to shut off services in your home? No 05/03/2024 Depression Answer Date Recorded Patient Health Questionnaire-2 Score 0 05/15/2024 Internet Access Answer Date Recorded Internet Access Q1 Yes 05/03/2024 Internet Access Q2 Not on file 05/03/2024 Comments Unknown Sex and Gender Information Value Date Recorded Sex Assigned at Female 05/24/2022 10:15 AM EDT Legal Sex Female 10:15 AM EDT Gender Identity Female 05/24/2022 10:15 AM EDT Sexual Orientation Straight 05/24/2022 10 :15 AM EDT documented as of this encounter Plan of Treatment Upcoming Encounters Date Type Department Care Team (Late st Contact Info) Description 09/04/2024 2:15 PM EST Office Visit [facility] [address] [place] [address] Ventura Tavares MD [address] [place] [address] documented as of this encounter Visit Diagnoses Not on filedocumented in this encounter Additional Health Concerns Assessment Noted Time PHQ-9 Depression Total Score: 0 05/15/20 24 10:57 AM EDT documented as of this encounter Care Teams Supervisor Scrap Preparation Relationship Specialty Start Date End Date Ventura Tavares MD [address] [place] [address] PCP - General Internal Medicine 03/11/14 documented as of this encounter
--- OUTSIDE RECORDS SUMMARY | 2024-09-03 10:53 | XMS_ITS | Patient Health Record ---
Author Organization [facility] Address [address] [place] [address] Care Team Providers Care Talcer Name Role Phone Zeus Maldonado MD, Ventura Primary Care Provide Castillo Cash Unavailable [phone] ALLERGIES Allergen (clinical drug ingredient) Drug/Non Drug Allergy documented on EMR Reaction Allergy Type Onset Date Status Glucophage Unknown Drug Allergy Active REASON FOR REFERRAL No Information MEDICATIONS Medication SIG (Take, Route, Frequency, Duration) Notes Start Date End Date Status Omeprazole 20 MG TOME 1 [place] for 90 Active Metoprolol Tartrate 25 MG 1 tablet Orall y Twice a day Active Norvasc 10 MG 1 tablet Orally Once a day Active Acetaminophen Active Senna-Time 8.6 MG TAKE 1 OR 2 ORALLY A T BEDTIME FOR CONSTIPATION 30 DAY(S) for 30 Active Unifine Pentips 31G X 8 MM Active lipitor 20 MG ONE TABLET Oral AT HS Active MiraLax 17 GM/SCOOP 1 capful in 8 ounces of water Orally Twice a day for constipation for 30 days 10/13/2022 Active Vitamin D3 21154 UNIT 1 tablet Orally On ce a day Active Lancets Active Omeprazole Active FreeStyle Lite Test In Vitro twice a day Active NovoLOG FlexPen Acti ve Aspir-81 81 MG 1 tablet Orally Once a day Active Senna 8.6-50 MG 1 tablet Orally Once a day Active Monoject Insulin Syringe 30G X 16 Active Lantus 100 UNIT/ML 45 units Subcutaneou s in am and 40 units at HS Active Gabapentin 100 MG 1 tablet Orally in a m and 300 mg at pm Active HumaLOG 100 UNIT/ML Subcutaneous Active IMMUNIZATIONS Vaccine Route Administration Date Status Comme nts Influenza Unknown 03/25/2020 Administered Influenza Unknown 05/11/2022 Administered SOCIAL HISTORY Sex Assigned At : Social History Observation Description Sex Assigned At Unknown PROBLEMS Problem Type ICD Code Onset Dates Problem Status W/U Status Risk SNOMED Code Notes Problem Encounter for screening for malignant neoplasm of colon (Z12.11) Active confirmed 045720520 Problem Encounter for screening for malignant neoplasm of rectum (Z12.12) Active confirmed Screening fo r malignant neoplasm of rectum (743919397) Problem Long-term use of aspirin therapy (Z79.82) Active confirmed 051519277 Problem Constipation, unspecified constipation type (K59.00) Active confirmed 46249598 Problem GERD (gastroesophage al reflux disease) (K21.9) Active confirmed Gastroesophagea l reflux disease (783385903) Problem Constipation, chronic (K59.00) Active confirmed Chronic constipation (809149335) Problem Epigastric abdominal pain (R10.13) Active confirmed Epigastric pain (65946458) PLAN OF TREATMENT Pending Test Test Name Order Date US ABD 05/23/2020 TSH REFLEX FREE T4 10/13/2022 Future Test Test Name Order Date COLONOSCOPY 06/12/2015 UPPER GI ENDOSCOPY 05/23/2020 Insurance Providers Payer Name Payer Address Payer Phone Subscriber Number Group Number Insured Name Patient Relationship to Insured Coverage Start Date Coverage End Date [facility] [address] [id number] [phone] [id number] CARINE LOCKHART Self - patient is the insured MEDICAL (GENERAL) HISTORY Medical History History ICD Code Screening colonoscopy 01/2005 and 08/2015--negative except for diverticulosis and internal hemorrhoids IDDM Hyperlipidemia Denies AR CVA > 10 yrs ago Asthma Chronic kidney disease state III-Dr. Rafael clayton HTN GERD Surgical History Surgery Date(Month/Year) Appendectomy Tubal ligation KATHARINA Cataracts and lens implants
--- OUTSIDE RECORDS SUMMARY | 2024-09-03 10:53 | XMS_ITS | Encounter Summary ---
Author Organization [email or web address] Address [address] [place] [address] Care Team Providers Care Baggage Handling Supervisor Name Role Phone Ventura Tavares MD Primary Care Provide r Reason for Visit * Reason Onset Date Comments Appointment Confirmation 08/15/2024 Encounter Details Date Type Department Care Team ([facility] st Contact Info) Description 08/15/2024 Telephone [facility] [address] [place] [address] Ventura Tavares MD [address] [place] [address] Appointment Confirmation Social History Tobacco Use Types Packs/Day Years [...] is your housing situation today? I have alishatammie hodges 05/15/[address] you [...] AM EDT documented as of this encounter Miscellaneous Notes * Telephone Encounter - Ramonita Reynolds MA - 08/15/2024 11:39 AM EST Contacted pt in regards to rescheduling her cancelled appt that was on 08/14/2024. Had to [facility] for acall back to schedule. T/C- Helicopter Mechanic Left Voice Mail to return call to schedule an appointment. Recall letter sent. Appointment: Office Visit Note: DM Month: August With: Zeus Please schedule appointment if Patient calls Back. documented in this encounter Plan of Treatment Upcoming Encounters Date Type Department Care Team (Late st Contact Info) Description 09/04/2024 2:15 PM EST Office Visit [facility] [address] [place] [address] Ventura Tavares MD [address] [place] [address] documented as of this encounter Visit Diagnoses Not on filedocumented in this encounter Additional Health Concerns Assessment Noted Time PHQ-9 Depression Total Score: 0 05/15/20 10:57 AM EDT documented as of this encounter Care Teams Baggage Handling Supervisor Relationship Specialty Start Date End Date Ventura Tavares MD [address] [place] [address] PCP - General Internal Medicine 03/11/14 documented as of this encounter
--- OUTSIDE RECORDS SUMMARY | 2024-09-03 10:53 | XMS_ITS | Encounter Summary ---
Author Organization [employer] [facility] Address [address] 7t [place] [address] Care Team Providers Care Packer Operator Automatic Name Role Phone Ventura Tavares MD Primary Care Provide r Reason for Visit * Reason Onset Date Comments ER Follow-up 10/25/2022 Encounter Details Date Type Department Care Team ([facility] st Contact Info) Description 10/25/2022 Telephone [facility] [address] [place] [address] Ventura Tavares MD [address] [place], [place] [phone] ER Follow-up Social History Tobacco Use Types Packs/Day Years Used Date Smoking Tobacco: Never Smokeless Tobacco: Never Comments Unknown Sex and Gender Information Value Date Recorded Sex Assigned at Female 05/24/2022 10:15 AM EDT Legal Sex Female 10:15 AM EDT Gender Identity Female 05/24/2022 10:15 AM EDT Sexual Orientation Straight 05/24/2022 10 :15 AM EDT documented as of this encounter Miscellaneous Notes * Telephone Encounter - Scott Ayala - 10/25/2022 3:59 PM EDT Sindi ( daughter ) calling to report ED visit on 10/25/22 at [facility]. Diagnosed with fall. Patient advised will forward to team nurse for follow up. documented in this encounter Plan of Treatment Upcoming Encounters Date Type Department Care Team (Late st Contact Info) Description 09/04/2024 2:15 PM EST Office Visit [facility] [address] [place] [address] Ventura Tavares MD [address] [place] [address] documented as of this encounter Visit Diagnoses Not on filedocumented in this encounter Care Teams Packer Operator Automatic Relationship Specialty Start Date End Date Ventura Tavares MD [facility] [place] [address] PCP - General Internal Medicine 03/11/14 documented as of this encounter
--- OUTSIDE RECORDS SUMMARY | 2024-09-03 10:53 | XMS_ITS | Encounter Summary ---
Author Organization [facility] Address [address] [place] [address] Care Team Providers Care Acute Specialist Name Role Phone Ventura Tavares MD Primary Care Provide r Reason for Visit * Reason Comments Med Refill Encounter Details Date Type Department Care Team ([facility] st Contact Info) Description 08/21/2024 Refill [facility] [address] [place] [address] Ventura Tavares MD [address] [place] [address] Pain Social History Tobacco Use Types Packs/Day Years [...] Description 09/04/2024 2:15 PM EST Office Visit [facility] [address] [place] [address] Ventura Tavares MD [address] [place] [address] documented as of this encounter Visit Diagnoses Diagnosis Pain Generalized pain documented in this encounter Additional Health Concerns Assessment Noted Time PHQ-9 Depression Total Score: 0 05/15/20 24 10:57 AM EDT documented as of this encounter Care Teams Acute Specialist Relationship Specialty Start Date End Date Ventura Tavares MD [address] [place] [address] PCP - General Internal Medicine 03/11/14 documented as of this encounter
--- OUTSIDE RECORDS SUMMARY | 2024-09-03 10:53 | XMS_ITS | Encounter Summary ---
Author Organization [employer] Address [address] 7t [place] [address] Care Team Providers Care Linen Clerk Name Role Phone Ventura Tavares MD Primary Care Provide r Encounter Details Date Type Department Care Team (Late Contact Info) Description 03/02/2023 Orders Only [facility] [address] [place] [address] Terra Hannon LPN Social History Tobacco Use Types Packs/Day Years Used Date Smoking Tobacco: Never Passive Smoke Exposure: Never Smokeless Tobacco: Never Alcohol Use Standard Drinks/Week Comments Never 0 (1 standard drink = 0.6 oz pur e alcohol) Depression Answer Date Recorded Patient Health Questionnaire-9 Score 12 12/21/2022 Depression Answer Date Recorded Patient Health Questionnaire-2 Score 1 12/21/2022 Comments Unknown Sex and Gender Information Value Date Recorded Sex Assigned at Female 05/24/2022 10:15 AM EDT Legal Sex Female 10:15 AM EDT Gender Identity Female 05/24/2022 10:15 AM EDT Sexual Orientation Straight 05/24/2022 10 :15 AM EDT documented as of this encounter Plan of Treatment Upcoming Encounters Date Type Department Care Team (Late Contact Info) Description 09/04/2024 2:15 PM EST Office Visit [facility] [address] [place], [place] [phone] Ventura Tavares MD [address] [place], [place] [phone] documented as of this encounter Visit Diagnoses Not on filedocumented in this encounter Additional Health Concerns Assessment Noted Time PHQ-9 Depression Total Score: 12 023 10:55 AM EDT documented as of this encounter Care Teams Linen Clerk Relationship Specialty Start Date End Date Ventura Tavares MD [address] [place] [address] PCP - General Internal Medicine 03/11/14 documented as of this encounter
--- OUTSIDE RECORDS SUMMARY | 2024-09-03 10:53 | XMS_ITS | Encounter Summary ---
Author Organization [employer] Address [address] 7[address] [place] [address] Care Team Providers Care Cook Pickled Meat Name Role Phone Ventura Tavares MD Primary Care Provide r Encounter Details Date Type Department Care Team ([facility] st Contact Info) Description 01/04/2023 Orders Only [facility] [address] [place] [address] Aime Bland MD [address] [place] [address] Dyspnea, unspecified type (Primary Dx) Social History Tobacco Use Types Packs/Day Years [...] Orientation Straight 05/24/2022 10 :15 AM EDT COVID-19 Exposure Response Date Recorded In the last 10 days, have yo u been in contact with someone who was confirmed or suspected to have Coronavirus/COVID-19? No / Unsure 12/31/2022 8:34 AM EDT documented as of this encounter Plan of Treatment Upcoming Encounters Date Type Department Care Team (Late st Contact Info) Description 09/04/2024 2:15 PM EST Office Visit [facility] [address] [place] [address] Ventura Tavares MD [address] [place] [address] Scheduled Orders Name Type Priority Associated Diagnoses Orde r Schedule XR Chest 2 Views Imaging Routine Dyspnea, unspecified type Expected: 01/04/2023, Expires: 01/05/2024 documented as of this encounter Procedures Procedure Name Priority Date/Time Associated Diagnosis Comments XR CHEST 2 VIEWS Routine 01/04/2023 2:20 PM EDT documented in this encounter Results * XR Chest 2 Views (01/04/2023 2:20 PM EDT) Anatomical Region Laterality Modality Chest Radiographic Ирина ging 01/04/2023 2:20 PM EDT Narrative 01/04/2023 2:57 PM EDT ?[facility] ?[address] ?[place] [address] ?XRay Report ? Signed ? Patient: Sindi Obrien ?MR#: [id number] ?? [id number] ? : 1950 ?Acct:[id number] ? Age/Sex: 72 / F ?ADM Date: 01/04/23 ? Loc: HO.HHCX ? Attending Dr: Aime Bland MD ? Ordering Physician: AIME BLAND MD ?? Date of Service: 01/04/23 ?? Procedure(s): XR chest 2V ?? Accession Number(s): [id number] ? cc: AIME BLAND MD ? EXAMINATION: ?? XR CHEST ? CLINICAL INFORMATION: ?? SOB on exertion. ? COMPARISON: ?? None available. ? TECHNIQUE: ?? 2 views of the chest were obtained. ? FINDINGS: ?? No significant abnormality is noted involving the heart, lungs, ?? mediastinum, bony thorax or soft tissues. ? XR/XR chest 2V ?? IMPRESSION: ?? Unremarkable chest examination. ? Dictated By: ?Earnestine,Giancarlo S MD ? Signed By: ?<Electronically signed by Giancarlo S MD Earnestine in OV> ?01/04/23 [facility] ? DD/ 19 ? TD/TT: ? Audiologist: HERSON ? Procedure Note Donotniainterpreter, Image - 01/19/2023 [facility] [address] [place] [address] XRay Report Signed Patient: Sindi ObrienMR#: [id number] : 2Acct:[id number] Age/Sex: 72 / FADM Date: 01/04/23 Loc: HO.HHCX Attending Dr: Aime Bland MD Ordering Physician: AIME BLAND MD Date of Service: 01/04/23 Procedure(s): XR chest 2V Accession Number(s): [id number] cc: AIME BLAND MD EXAMINATION: XR CHEST CLINICAL INFORMATION: SOB on exertion. COMPARISON: None available. TECHNIQUE: 2 views of the chest were obtained. FINDINGS: No significant abnormality is noted involving the heart, lungs, mediastinum, bony thorax or soft tissues. XR/XR chest 2V IMPRESSION: Unremarkable chest examination. Dictated By: Giancarlo Colby MD Signed By: <Electronically signed by Giancarlo Colby MD in OV> 01/04/23 1454 DD/ 1420 TD/TT: Audiologist: HERSON [facility] External Provider IMG XR PROCEDURES Final Result documented in this encounter Visit Diagnoses Diagnosis Dyspnea, unspecified type- Primary documented in this encounter Additional Health Concerns Assessment Noted Time PHQ-9 Depression Total Score: 12 023 10:55 AM EDT documented as of this encounter Care Teams Cook Pickled Meat Relationship Specialty Start Date End Date Ventura Tavares MD [address] [place] [address] PCP - General Internal Medicine 03/11/14 documented as of this encounter
--- OUTSIDE RECORDS SUMMARY | 2024-09-03 10:53 | XMS_ITS | Encounter Summary ---
Author Organization [employer] Address [address] 7t [place] [address] Care Team Providers Care Grades 6 Through 8 Teacher Name Role Phone Ventura Tavares MD Primary Care Provide r Encounter Details Date Type Department Care Team ([facility] Contact Info) Description 09/20/2022 Orders Only [facility] [address] [place] [address] Terra Hannon LPN Social History Tobacco Use [...] suspected to have Coronavirus/COVID-19? No / Unsure 09/06/2022 8:43 AM EST documented as of this encounter Plan of Treatment Upcoming Encounters Date Type Department Care Team (Late Contact Info) Description 09/04/2024 2:15 PM EST Office Visit [facility] [address] [place], [place] [phone] Ventura Tavares MD [address] [place], [place] [phone] documented as of this encounter Visit Diagnoses Not on filedocumented in this encounter Care Teams Grades 6 Through 8 Teacher Relationship Specialty Start Date End Date Ventura Tavares MD [address] [place] [address] PCP - General Internal Medicine 03/11/14 documented as of this encounter
--- OUTSIDE RECORDS SUMMARY | 2024-09-03 10:53 | XMS_ITS | Encounter Summary ---
Author Organization [facility] [facility] Address [address] 7t [place] [address] Care Team Providers Care Industrial Analyst Name Role Phone Ventura Tavares MD Primary Care Provide r Encounter Details Date Type Department Care Team (Late st Contact Info) Description 12/01/2022 Abstract [facility] [address] [place] [phone] Ventura Tavares MD [address] [place] [phone] Social History Tobacco Use Types Packs/Day Years [...] Description 09/04/2024 2:15 PM EST Office Visit [facility] [address] [place] [phone] Ventura Tavares MD [address] [place] [phone] documented as of this encounter Procedures Procedure Name Priority Date/Time Associated Diagnosis Comments HM COLONOSCOPY Routine 09/01/2015 documented in this encounter Results * Colonoscopy (09/01/2015) Colonoscopy Normal Normal 09/01/2015 Ariella Brittany Galarza - 09/01/2015 11:54 AM EST Recommended 10 year follow up us Historical Provider [facility] Edited Result - Final documented in this encounter Visit Diagnoses Not on filedocumented in this encounter Care Teams Industrial Analyst Relationship Specialty Start Date End Date Ventura Tavares MD [address] [place] [address] PCP - General Internal Medicine 03/11/14 documented as of this encounter
--- OUTSIDE RECORDS SUMMARY | 2024-09-03 10:53 | XMS_ITS | Encounter Summary ---
Author Organization [employer] [facility] Address [address] [place] [address] [address] [place] [address] Care Team Providers Care Lens Cleaner Name Role Phone Ventura Tavares MD Primary Care Provide r Encounter Details Date Type Department Care Team (Late st Contact Info) Description 07/09/2022 [facility] Health Information Management [address] [place], [place] [phone] Ventura Tavares MD [address] [place], [place] [phone] Social History Tobacco Use Types Packs/Day Years Used Date Smoking Tobacco: Never Assessed Comments Unknown Sex and Gender Information Value [...] Description 09/04/2024 2:15 PM EST Office Visit [facility] [address] [place] [address] [phone] Ventura Tavares MD [address] [place], [place] [phone] documented as of this encounter Procedures Procedure Name Priority Date/Time Associated Diagnosis Comments URINALYSIS, COMPLETE, WITH REFLEX TO CULTURE Routine 09/06/2022 10:34 AM EST URINALYSIS WITH REFLEX MICROSCOPIC Routine 09/06/2022 10:34 AM EST CBC WITH AUTO DIFFERENTIAL Routine 09/06/2022 10:27 AM EST COMPREHENSIVE METABOLIC PANEL Routine 09/06/2022 10:27 AM EST CREATININE, SERUM Routine 08/03/2022 8:1 5 AM EST UREA NITROGEN (BUN) Routine 08/03/2022 8 :15 AM EST CALCIUM Routine 08/03/2022 8:15 AM EST ELECTROLYTE PANEL Routine 08/03/2022 8:1 5 AM EST documented in this encounter Results * (ABNORMAL) Urinalysis, Complete, with Reflex to Culture (09/06/2022 10:34 AM EST) Color Urine Yellow [facility] Appearance Urine Clear [facility] PH 7.5 5.0 - 9.0 [facility] Glucose Urine UA 100(A) Negative mg/dL [facility] Urine Blood Negative Negative [facility] Specific [place] - Urine 1.020 1.005 - 1.025 [facility] Urine Protein 100 (2+)(A) Neg-Trace mg/dL [facility] Urine Ketones Negative Negative mg/dL [facility] Nitrite Urine Negative Negative [facility] Leukocyte Esterase Urine Negative Negative [facility] RBC Urine 0-2 0 - 2 /HPF [facility] Urine WBC 0-5 0 - 5 /HPF [facility] Urine Squamous Epithelial Cell 6-10 0 - 2 /HPF [facility] Urine Bacteria None Seen None Seen [facility] Hyaline Casts, Urine 0-2 0 - 2 /LPF [facility] 09/06/2022 10:3 4 AM EST 09/06/2022 10:38 AM EST [facility] - 09/06/2022 10:51 AM EST [id number], Clean Catch [facility] External Provider LAB URI NE ORDERABLES Final Result Performing Organization Address [facility] de Phone Number [facility] [address] [place] [address] [phone] * (ABNORMAL) Urinalysis with reflex microscopic (09/06/2022 10:34 AM EST) Color Urine Yellow [facility] Appearance Urine Clear [facility] PH 7.5 5.0 - 9.0 [facility] Glucose Urine UA 100(A) Negative mg/dL [facility] Urine Blood Negative Negative [facility] Specific [place] - Urine 1.020 1.005 - 1.025 [facility] Urine Protein 100 (2+)(A) Neg-Trace mg/dL [facility] Urine Ketones Negative Negative mg/dL [facility] Nitrite Urine Negative Negative [facility] Leukocyte Esterase Urine Negative Negative [facility] 09/06/2022 10:3 4 AM EST 09/06/2022 10:38 AM EST [facility] - 09/06/2022 10:45 AM EST [id number], Clean Catch [facility] External Provider LAB URI NE ORDERABLES Final Result Performing Organization Address [facility] Co de Phone Number [facility] [address] [place] [phone] * (ABNORMAL) Comprehensive Metabolic Panel (09/06/2022 10:27 AM EST) Sodium 139 135 - 145 mmol/L [facility] Potassium 5.1 3.3 - 5.1 mmol/L [facility] Chloride 103 96 - 108 mmol/L [facility] Carbon Dioxide 29 22 - 29 mmol/L [facility] Anion Gap 12 12 - 20 [facility] Urea Nitrogen (BUN) 36(H) 9 - 16 mg/dL [facility] Creatinine, Serum 1.47(H) 0.5 - 1.4 mg/dL [facility] Creatinine Clr Calc Pharmacy 27.5 [facility] Comment:Provided height and weight: 134.62 cm,78.018 kg.eGFR (calculated from the MDRD study equation) and eCrCl(calculated from the Cockcroft-Gault equation) are based ondifferent parameters and may not yield comparable results.If eCrCl result is absurd, please check patient'sheight/weight. Estimated Glomerular Filt Rate 35 [facility] Comment:NOTE: For -Am erican individuals, multiply the result by 1.210.Chronic Kidney Disease: Estimated GFR < 60 mL/min/[id number] Kidney Disease: Estimated GFR < 15 mL/min/1.73m2 Glucose 190(H) 60 - 115 mg/dL [facility] Calcium 9.4 8.4 - 10.2 mg/dL [facility] Bilirubin, Total 0.6 0.0 - 1.0 mg/dL [facility] Aspartate Amino Transferase 18 5 - 31 U/L [facility] Alanine Aminotransferase 16 0 - 31 U/L [facility] Total Protein 6.9 6.5 - 8.0 g/dL [facility] Albumin Level 4.0 3.5 - 5.0 g/dL [facility] Alkaline Phosphatase 105 39 - 117 U/L [facility] 09/06/2022 10:2 7 AM EST 09/06/2022 10:31 AM EST us [facility] External Provider LAB BLO OD ORDERABLES Final Result [facility] [address] [place] [phone] * (ABNORMAL) CBC auto differential (09/06/2022 10:27 AM EST) White Blood Count 6.5 4.8 - 10.8 X10*3/uL [facility] Red Blood Count 3.99(L) 4.20 - 5.50 X10*6/uL [facility] Hemoglobin 12.0 12.0 - 16.0 g/dl [facility] Hematocrit 36.2(L) 37.0 - 47.0 % [facility] Mean Corpuscular Volume 90.7 80.0 - 98.0 fL [facility] Mean Corpuscular Hemoglobin 30.1 27.0 - 33.0 pg [facility] Mean Corpuscular HGB Conc 33.1 31.0 - 35.0 g/dl [facility] Red Cell Distribution Width 11.6 11.0 - 16.0 % [facility] Platelet Count 194 160 - 400 X10*3/uL [facility] Mean Platelet Volume 10.6 9.4 - 12.3 fL [facility] Neutrophils Percent Auto 64.0 45 - 73 % [facility] Imm Gran Pct Auto 0.3 0.0 - 0.4 % [facility] Lymphocytes Percent Auto 22.6 20 - 40 % [facility] Monocytes Percent Auto 7.9 2 - 11 % [facility] Eosinophils Percent Auto 4.7(H) 0 - 4 % [facility] Basophils Percent Auto 0.5 0 - 2 % [facility] NRBC Pct Auto 0.0 0.0 - 0.2 /100WBC [facility] Neutrophils Absolute Auto 4.1 2.0 - 8.3 x10*3/uL [facility] Imm Gran Abs Auto 0.02 0.00 - 0.03 X10*3/uL [facility] Lymphocytes Absolute Auto 1.5 1.2 - 4.9 X10*3/uL [facility] Monocytes Absolute Auto 0.5 0.1 - 1.2 X10*3/uL [facility] Eosinophils Absolute Auto 0.3 0.0 - 0.4 X10*3/uL [facility] Basophils Absolute Auto 0.0 0.0 - 0.2 X10*3/uL [facility] NRBC Abs Auto 0.000 0.0 - 0.012 X10*3/uL [facility] 09/06/2022 10:2 7 AM EST 09/06/2022 10:31 AM EST [facility] External Provider LAB BLO OD ORDERABLES Final Result Performing Organization Address [facility] Phone Number [facility] [address] [place] [phone] * Calcium (08/03/2022 8:15 AM EST) Calcium 9.2 8.4 - 10.2 mg/dL [facility] 08/03/2022 8:15 AM EST 08/03/2022 10:30 AM EST [facility] External Provider LAB BLO OD ORDERABLES Final Result Performing Organization Address [facility] Number [facility] [address] [place] [phone] * (ABNORMAL) Creatinine, Serum (08/03/2022 8:15 AM EST) Creatinine, Serum 1.54(H) 0.5 - 1.4 mg/dL [facility] Estimated Glomerular Filt Rate 33 [facility] Comment:NOTE: For -Am erican individuals, multiply the result by 1.210.Chronic Kidney Disease: Estimated GFR < 60 mL/min/1.70d3Tlgeqh Kidney Disease: Estimated GFR < 15 mL/min/1.73m2 08/03/2022 8:15 AM EST 08/03/2022 10:30 AM EST [facility] External Provider LAB BLO OD ORDERABLES Final Result Performing Organization Address [facility] Co de Phone Number [facility] [address] [place] [phone] * (ABNORMAL) BUN (Blood Urea Nitrogen) (08/03/2022 8:15 AM EST) Urea Nitrogen (BUN) 39(H) 9 - 16 mg/dL [facility] 08/03/2022 8:15 AM EST 08/03/2022 10:30 AM EST [facility] External Provider LAB BLO OD ORDERABLES Final Result Performing Organization Address [facility] Co de Phone Number [facility] [address] [place] [phone] * (ABNORMAL) Electrolyte Panel (08/03/2022 8:15 AM EST) Sodium 140 135 - 145 mmol/L [facility] Potassium 5.5(H) 3.3 - 5.1 mmol/L [facility] Chloride 106 96 - 108 mmol/L [facility] Carbon Dioxide 28 22 - 29 mmol/L [facility] Anion Gap 12 12 - 20 [facility] 08/03/2022 8:15 AM EST 08/03/2022 10:30 AM EST [facility] External Provider LAB BLO OD ORDERABLES Final Result Performing Organization Address [facility] de Phone Number [facility] [address] [place] [phone] documented in this encounter Visit Diagnoses Not on filedocumented in this encounter Care Teams Lens Cleaner Relationship Specialty Start Date End Date Ventura Tavares MD [address] [place] [phone] PCP - General Internal Medicine 03/11/14 documented as of this encounter
--- OUTSIDE RECORDS SUMMARY | 2024-09-03 10:53 | XMS_ITS | Clinical Summary ---
Author Organization [employer] Address [address] [facility] [place] [address] [place] [address] Care Team Providers Care Cartographic Drafter Name Role Phone Ventura Tavares MD Primary Care Provide r Allergies Active Allergy Reactions Criticality Noted Date Comments Lisinopril Cough 07/23/2010 Metformin Diarrhea,Unknown 07/23/2010 Medications NovoLOG FLEXPEN 100 UNIT/ML pen INJECT 18 TO 20 UNITS BY SUBCUTANEOUS ROUTE THREE TIMES DAILY BEFORE MEALS 30 mL 6 023 Active hydrALAZINE (Apresoline) 25 MG tablet TAKE 1 TABLET BY MOUTH TWICE A DAY 180 tablet 3 024 Active acetaminophen (Tylenol) 500 MG tablet Take 2 tablets (1,000 mg) by mouth every 6 (six) hours if needed for moderate pain or fever. 40 tablet 024 Active metoprolol tartrate (Lopressor) 25 MG tabletIndications :Primary hypertension TAKE 1 TABLET BY MOUTH TWICE A DAY 180 tablet 3 024 Active aspirin (Aspirin Low Dose) 81 MG EC tablet TAKE 1 TABLET BY MOUTH EVERY DAY 90 tablet 3 024 Active insulin glargine (Lantus SoloStar) 100 UNIT/ML pen INJECT 28 UNITS SUBCUTANEOUSLY EVERY DAY AT BEDTIME 15 mL 6 024 Active Additional Information Patient taking differently: INJECT 20 UNITS SUBCUTANEOUSLY EVERY DAY AT BEDTIME, Reported on 05/29/2024 lidocaine (Lidoderm) 5 % patch APPLY 1 PATCH TOPICALLY IN THE MORNING. REMOVE AND DISCARD PATCH WITHIN 12 HOURS OR INSTRUCTED BY . 30 patch 2 09/09/2 024 Active furosemide (Lasix) 20 MG tablet Take 2 tablets (40 mg) by mouth Once per day. 60 tablet Active Additional Information Patient taking differently: (No dose reported), (No route reported), (No frequency reported), 1 tablet every other day, Reported on 05/29/2024 BD Pen Needle Kelly 2nd Gen 32G X 4 MM misc USE DIRECTED 5 TIMES DAILY Active sodium polystyrene sulfonate (Kayexalate) powder TAKE 30 GRAMS ORALLY ONCE A WEEK Active melatonin 5 MG tablet Take 0.5 tablets by mouth at bedtime. Active Cyanocobalamin (VITAMIN B12 PO) Take 1 tablet by mouth 1 (one) time each day. B-12 gummies Active atorvastatin (Lipitor) 40 MG tabletIndications :Mixed hyperlipidemia TAKE 1 TABLET BY MOUTH EVERY DAY 90 tablet 3 Active Continuous Glucose Sensor (FreeStyle Blake 3 Sensor) [facility] Apply 1 Device topically every 14 (fourteen) days. APPLY EVERY 14 DAYS DIRECTED 2 each 2 Active Jardiance 10 MG Take 1 tablet by mouth Once per day. Active gabapentin (Neurontin) 300 MG capsuleIndication s:Pain TAKE 1 CAPSULE BY MOUTH AT BEDTIME 90 capsule Active Blood Pressure kit 1 each 2 times daily. 1 kit 024 2024 Additional Information Patient not taking.Reported on 05/29/2024 gabapentin (Neurontin) 300 MG capsuleIndication s:Pain TAKE 1 CAPSULE BY MOUTH AT BEDTIME 90 capsule 1 024 2024 Discontinued Active Problems Problem Noted Date Diagnosed Date PB (obstructive sleep apnea) 05/24/2024 Overview (05/24/2024): Physical features are very much suggestive of the obstructive sleep apnea. However the current polysomnogram study on 05/16 shows total sleep time AHI of 4.5which is below the threshold for sleep apnea. She would not qualify for using CPAP. Explained to the patient . advised that she should always sleep in lateral position. She should try to lose some weight if she can. ( at least 5-10 lb ) Hyperkalemia 05/24/2024 Chronic constipation 09/22/2023 Assessment & Plan (09/22/2023 1:33 PM EST): Not improving despite increase fluids, fiber and laxatives Will refer to Gastroenterology Nevus 05/29/2023 Assessment & Plan (05/29/2023 11:24 AM EST): There are multiple skin lesions, nevus , pt concern w nevus in posterior neck , that appears bluish ,regular borders -referred today to shallot cleaner Routine physical examination 04/19/2023 Assessment & Plan (05/15/2024 10:34 AM EDT): Patient is here for a routine physical examination requested by [facility]. She herself has no particular complaints or concerns. Exam is unchanged Assessment & Plan (04/19/2023 1:55 PM EDT): Patient is here for a routine physical examination requested by [facility]. She herself has no particular complaints or concerns Exam is unchanged Declined her flu shot today, she said she would get it next week LAKE (dyspnea on exertion) 01/18/2023 Assessment & Plan (05/15/2024 1:05 PM EDT): Seen initially by Dr Demarcus Larry with c/o LE edema and elevated BNP, CXR was unermarkable. Dr. Larry spoke with Dr. Cosme's office (her stripper apprentice), pt was seen 12/27/2023. We notified the office that her kiln transfer operator Dr. Silverio prescribes Lasix 20 mg 2 tabs po daily. Patient followed by Dr Cosme Account Contact Associate, Previous Stress Test and ECHO unremarkable. Last seen 12/27/2023. Assessment & Plan (09/22/2023 11:38 AM EST): Seen by Dr Demarcus Larry with c/o LE edema, referred to cardiology seen by Dr Cosme Account Contact Associate, Stress Test and ECHO unremarkable Assessment & Plan (01/18/2023 10:50 AM EDT): Seen by Dr Demarcus Larry with c/o LE edema, referred to cardiology seen by Dr Cosme 01/06/2023 ECHO ordered Preventative health care 01/18/2023 Assessment & Plan (04/19/2023 1:55 PM EDT): Mammogram: Abnormal 05/05/2022 Biopsy 06/09/2022 Negative for malignancy Pap Smear: NL: 12/16/2005 s/p KATHARINA 20 years ago, no need to continue Colonoscopy: 09/01/2015 Dr Marilou Soni 10 year f/u Assessment & Plan (03/24/2023 9:08 AM EDT): Mammogram: Abnormal 05/05/2022 Biopsy 06/09/2022 Negative for malignancy Pap Smear: NL: 12/16/2005 s/p KATHARINA 20 years ago, no need to continue Colonoscopy: 09/01/2015 Dr Zamarripa Nl 10 year f/u Assessment & Plan (01/18/2023 11:01 AM EDT): Mammogram: Abnormal 05/05/2022 Biopsy 06/09/2023 Negative for malignancy Pap Smear: NL: 12/16/2005 s/p KATHARINA 20 years ago, no need to continue Colonoscopy: 09/01/2015 Dr Marilou Soni 10 year f/u Sharp's cyst, left 12/31/2022 Overview (12/31/2022): Seen on venous Doppler US 12/15 Cerebral infarction 10/26/2022 Overview (05/24/2024): 70 years old woman who probably had atherosclerotic small-vessel right hemispheric subcortical ischemic infarction related to hypertension and other vascular risk factors resulting in left-sided numbness and weakness. Now she was much better. Mainstay of management is blood pressure control, anti-platelet agent if possible, control of lipid disorder. I would recommend an MRI of brain without contrast. I would avoid CTA at this time because of renal problems and to avoid making it worse with contrast. 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 Lasix 20 mg po 2 tabs daily (nephrology), Cozaar 25 mg po daily and Hydralazine BID. She is no longer on Norvasc. Most recent electrolytes Creatinine done on: 02/13/2024 Counseled about taking her medications regularly Plan: continue with current regimen Patient advised to adhere to a low sodium diet, encouraged about medication compliance, counseled about weight loss. Assessment & Plan (09/22/2023 1:28 PM EST): Pt here for a f/u DM controlled She is on a regimen of: Metoprolol 25 mg po BID. and Hydralazine BID. She is no longer on Norvasc. Most recent electrolytes Creatinine done on: 08/16/2023 Counseled about taking her medications regularly Plan: continue with current regimen Patient advised to adhere to a low sodium diet, encouraged about medication compliance, counseled about weight loss. Assessment & Plan (03/24/2023 9:22 AM EDT): Pt here for a f/u She is on a regimen of: Metoprolol 25 mg po BID. and Hydralazine BID. She is no longer on Norvasc. Most recent electrolytes Creatinine done on: 11/08/2022 showed an elevated follows with Nephrology Counseled about taking her medications regularly Plan: continue with current regimen Patient advised to adhere to a low sodium diet, encouraged about medication compliance, counseled about weight loss. Assessment & Plan (01/18/2023 10:58 AM EDT): Pt here for a f/u She is on a regimen of: Metoprolol 25 mg po BID. and Hydralazine BID. She is no longer on Norvasc. Most recent electrolytes Creatinine done on: 11/08/2022 showed an elevated follows with Nephrology Counseled about taking her medications regularly Plan: continue with current regimen Patient advised to adhere to a low sodium diet, encouraged about medication compliance, counseled about weight loss. Anemia 04/06/2012 Chronic kidney disease (CKD), stage III (moderat e) 04/06/2012 Assessment & Plan (05/15/2024 10:20 AM EDT): Under the care of Nephrology Dr Ji seen in 05/11/2024 Assessment & Plan (09/22/2023 11:37 AM EST): Under the care of Nephrology Dr Ji seen in 08/29/2023 Assessment & Plan (01/18/2023 10:52 AM EDT): Under the care of Nephrology Dr Ji seen in October 2022 Depressive disorder 04/06/2012 Hyperlipidemia 04/06/2012 Osteoarthritis 04/06/2012 Type 2 diabetes mellitus 04/06/2012 Assessment & Plan (05/15/2024 11:15 AM EDT): Patient is here for a follow up Back under the care of Endocrinology , last seen 03/16/2024 hgb A1c 05/16/2024: 8.9 from 8.2 She is on a regimen of: Lantus 20 units sc at pm and Novolog 20 units sc before meals. And Ozempic 0.25 once a week Pt stopped taking Jardiance 10 mg due to the fact that she developed frequent vaginal infections as a result. due to abdominal discomfort Microalbumin on 09/30/2023 was 229 pt is off ARB. Foot check: , moderate reduction in peripheral sensation on R foot, mild reduction L foot. On asa 81 mg po daily. Plan: As per Endocrinology Eye exam with [facility] 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 Last seen 12/06/2023 Pt does not adhere to a diabetic diet, does not want to go any higher on her insulin dose as it was recommended by her Panel Machine Setter. Pt advised to Adhere to diabetic diet 3 months f/u Assessment & Plan (09/22/2023 1:30 PM EST): Patient is here for a follow up Back under the care of Endocrinology , last seen 06/13/2023 Prior nephrology notes recommended trial of SGLT-2 for renal protection hgb A1c 09/22/2023: 8.2 She is on a regimen of: Lantus 30 units sc at pm and Novolog 20 units sc before meals. Off Trulicity (She did not tolerate) she was on jardiance 10 mg po daily but stopped due to the fact that she developed frequent vaginal infections as a result. She stopped Ozempic 0.25 once a week due to abdominal discomfort Microalbumin on 08/06/2021 was 7.6 pt is off ARB. Foot check: , moderate reduction in peripheral sensation on R foot, mild reduction L foot. On asa 81 mg po daily. Eye exam with [facility] diagnosed with DR both eyes 10/26/2016 Pt does not adhere to a diabetic diet, does not want to go any higher on her insulin dose as it was recommended by her Panel Machine Setter. Pt advised to Adhere to diabetic diet 3 months f/u Assessment & Plan (04/19/2023 1:50 PM EDT): Patient is here for a follow up She is no longer under the care of Endocrinology Prior nephrology notes recommended trial of SGLT-2 for renal protection She did not bring her glucometer hgb A1c 03/24/2023: 9.9 She is on a regimen of: Lantus 30 units sc at pm and Novolog 20 units sc before meals. Off Trulicity (She did not tolerate) she was on jardiance 10 mg po daily but stopped due to the fact that she developed frequent vaginal infections as a result Microalbumin on 08/06/2021 was 7.6 pt is off ARB. Foot check: , moderate reduction in peripheral sensation on R foot, mild reduction L foot. On asa 81 mg po daily. Eye exam with [facility] diagnosed with DR both eyes 10/26/2016 Pt does not adhere to a diabetic diet, does not want to go any higher on her insulin dose as it was recommended by her Panel Machine Setter. Pt advised to Adhere to diabetic diet Pt was supposed to have an appointment with Endocrinology but apparently did not. Previous visit patient wanted to try Ozempic We sent Ozempic 0.25 once a week to her pharmacy but she tells me she never received it, we will send to our Pharmacy 4 week f/u Assessment & Plan (03/24/2023 9:28 AM EDT): Patient is here for a follow up She is no longer under the care of Endocrinology Prior nephrology notes recommended trial of SGLT-2 for renal protection She did not bring her glucometer hgb A1c 03/24/2023: 9.9 She is on a regimen of: Lantus 30 units sc at pm and Novolog 20 units sc before meals. Off Trulicity (She did not tolerate) she was on jardiance 10 mg po daily but stopped due to the fact that she developed frequent vaginal infections as a result Microalbumin on 08/06/2021 was 7.6 pt is off ARB. Foot check: , moderate reduction in peripheral sensation on R foot, mild reduction L foot. On asa 81 mg po daily. Eye exam with [facility] diagnosed with DR both eyes 10/26/2016 Pt does not adhere to a diabetic diet, does not want to go any higher on her insulin dose as it was recommended by her Panel Machine Setter. Pt advised to Adhere to diabetic diet Pt was supposed to have an appointment with Endocrinology but apparently did not. Plan: Pt would like to try Ozempic, pros and cons discussed Start Ozempic 0.25 once a week 4 week f/u Assessment & Plan (01/18/2023 10:55 AM EDT): Patient is here for a follow up She is no longer under the care of Endocrinology Prior nephrology notes recommended trial of SGLT-2 for renal protection She did not bring her glucometer hgb A1c 12/21/2022: 10 She is on a regimen of: Lantus 30 units sc at pm and Novolog 20 units sc before meals. Off Trulicity (She did not tolerate) she was on jardiance 10 mg po daily but stopped due to the fact that she developed frequent vaginal infections as a result Microalbumin on 08/06/2021 was 7.6 pt is off ARB. Foot check: , moderate reduction in peripheral sensation on R foot, mild reduction L foot. On asa 81 mg po daily. Eye exam with [facility] diagnosed with DR both eyes 10/26/2016 Pt does not adhere to a diabetic diet, does not want to go any higher on her insulin dose as it was recommended by her Panel Machine Setter. Pt advised to Adhere to diabetic diet Pt already has an appointment with Endocrinology next month 3 month f/u Assessment & Plan (12/21/2022 11:16 AM EDT): Patient is here for a follow up She is no longer under the care of Endocrinology Prior nephrology notes recommended trial of SGLT-2 for renal protection She did not bring her glucometer hgb A1c 12/21/2022: 10 She is on a regimen of: Lantus 30 units sc at pm and Novolog 20 units sc before meals. Off Trulicity (She did not tolerate) she was on jardiance 10 mg po daily but stopped due to the fact that she developed frequent vaginal infections as a result Microalbumin on 08/06/2021 was 7.6 pt is off ARB. Foot check: , moderate reduction in peripheral sensation on R foot, mild reduction L foot. On asa 81 mg po daily. Eye exam with [facility] diagnosed with DR both eyes 10/26/2016 Pt does not adhere to a diabetic diet, does not want to go any higher on her insulin dose as it was recommended by her Panel Machine Setter. Pt advised to Adhere to diabetic diet Plan: Refer back to Endocrinology 3 month f/u Severe obesity 04/06/2012 Assessment & Plan (09/22/2023 1:36 PM EST): Patient has been counseled and educated about diet and exercise. Personal goal of weight loss discussed Patient has comorbidity of: DM Assessment & Plan (01/18/2023 10:53 AM EDT): Patient has been counseled and educated about diet and exercise. Personal goal of weight loss discussedPatient has comorbidity of:Patient has comorbidity of: DM Shoulder pain 04/06/2012 Resolved Problems Problem Noted Date Diagnosed Date Resolved Date Conjunctivitis 05/29/2023 09/22/2023 Assessment & Plan (05/29/2023 11:27 AM EST): -ofloxacine QID x 7 days for both eyes -warm compresses -alarm signs and symptoms Encounters Date Type Department Care Team Description 08/27/2024 Telephone [facility] [address] [place] [address] Ventura Tavares MD Error (VOID this visit) 08/21/2024 Refill [facility] [address] [place] [address] Ventura Tavares MD Pain 08/15/2024 Telephone [facility] [address] [place] [address] Ventura Tavares MD Appointment Confirmation 08/01/2024 Telephone [facility] [place] [phone] Ventura Tavares MD Chart Prep 07/26/2024 8:40 AM EST Office Visit [facility] [address] [place] [address] Trung Wu MD Greater trochanteric bursitis of left hip (Primary Dx) 07/10/2024 2:30 PM EST Telemedicine [facility] [place] [address] Chelsy Dickson, RyderD Type 2 diabetes mellitus with stage 3a chronic kidney disease, with long-term current use of insulin ([facility]) (Primary Dx); Primary hypertension 06/25/2024 Orders Only GENERIC EXTERNAL DATA DEPARTMENT Provider, Generic External Data 06/22/2024 Orders Only GENERIC EXTERNAL DATA DEPARTMENT Provider, Generic External Data 06/18/2024 Travel 06/07/2024 Refill [facility] [address] [place] [address] Ventura Tavares MD from Last 3 Months Immunizations Name Administration Dates Next Due Influenza High-dose Quadriva lent Preservative Free 04/26/2023,05/25/2022 Influenza Quadrivalent Adjuvanted 08/16/2023,,03/28/2020 Influenza injectable quadriv alent preservative free 05/03/2019,05/12/2016 Influenza, High Dose Seasona l, Preservative Free 05/15/2024,04/20/2018,05/19/2017 Influenza, IIV3, injectable 05/11/2022,0 03/25/2020,05/22/2014,06/10 Influenza, Split (incl. flavio fied surface antigen) 04/06/2012 Moderna Covid-19 Vaccine 12+ 06/24/2021,10/15/19 21,09/16/2020 Moderna Covid-19 Vaccine 6+ Bivalent 07/28/2022 Pfizer Covid-19 Vaccine 12+ 05/15/2024 Pneumococcal Conjugate PCV 13 02/13/2021 Pneumococcal Conjugate PCV 20 05/29/2024 Pneumococcal Polysaccharide PPSV23 03/07/2000 TD (adult), 2 Lf tetanus tox oid, preservative free, adsorbed 10/15/2010 Tdap 02/13/2021 Zoster, live 02/04/2015 Social History Tobacco Use Types Packs/Day Years Used Date Smoking Tobacco: Never Passive Smoke Exposure: Never Smokeless Tobacco: Never Tobacco Cessation:Counseling Given: Not Answered Alcohol Use Standard Drinks/Week Comments Never 0 [...] Orientation Straight 05/24/2022 10 :15 AM EDT Last Filed Vital Signs Vital Sign Reading Time Taken Comments Blood Pressure 181/62 07/26/2024 9:04 AM EST Pulse 57 07/26/2024 8:38 AM EST Temperature 36.6 ??C (97.8 ??F) 07/26/2024 8:38 AM ES T Respiratory Rate 17 07/26/2024 8:38 AM EST Oxygen Saturation 94% 07/26/2024 8:38 AM EST Inhaled Oxygen Concentration - - Weight 74.5 kg (164 lb 3.2 oz) 07/26/2024 8:38 A M EST Height 134.6 cm (4' 5 ) 05/15/2024 10:24 AM EDT Body Mass Index 41.1 05/15/2024 10:24 AM EDT Plan of Treatment Upcoming Encounters Date Type Department Care Team (Late st Contact Info) Description 09/04/2024 2:15 PM EST Office Visit [facility] [address] [place] [id number] Ventura Tavares MD [address] [place] [address] Health Maintenance Due Date Last Done Comments CT Colonography 1951 FIT DNA/Cologuard 1950 FIT 1950 FOBT 1950 Sigmoidoscopy 1950 Diabetes: Foot Exam 11/04/1961 Eye Exam 11/04/1961 Hepatitis C Screening 11/04/1969 RSV Patients and Patients Aged 60 years or older (1 - Risk 60-74 years 1-dose series) 2011 Zoster Vaccines (2 of 3) 04/01/2015 02/04/2015 Diabetes: Hemoglobin A1C 09/21/2024 024, 05/15/2024, 09/22/2023, Additional history exists Lipid Panel 09/29/2024 09/30/2023, 06/0 03/2023, 04/05/2022, Additional history exists Mammogram 10/23/2024 10/24/2023, 04/24, 05/05/2022, Additional history exists Alcohol/Substance Use Screening 05/15/2025 05/15/2024 Depression Screening 05/15/2025 05/15/2024, 05/15/20 24 SDOH Screening 05/15/2025 05/15/2024 Tobacco Screening 07/10/2025 07/10/2024 Colonoscopy 09/01/2025 09/01/2015 Colorectal Cancer Screening 09/01/2025 DTaP/Tdap/Td Vaccines (2 - Td or Tdap) 02/13/2031 02/13/2021, 10/15/2010 COVID-19 Vaccine Completed 05/15/2024, 10/2022, 06/24/2021, Additional history exists Influenza Vaccine Completed 05/15/2024, , 04/26/2023, Additional history exists Pneumococcal Vaccine: 50+ Years Completed 05/29/2024, 02/13/2021, 03/07/2000 HIB Vaccines Aged Out No longer eligi ble based on patient's age to complete this topic HPV Vaccines Aged Out No longer eligi ble based on patient's age to complete this topic Hepatitis A Vaccines Aged Out No long er eligible based on patient's age to complete this topic Hepatitis B Vaccines Aged Out No long er eligible based on patient's age to complete this topic IPV Vaccines Aged Out No longer eligi ble based on patient's age to complete this topic Meningococcal Vaccine Aged Out No zunilda geneva eligible based on patient's age to complete this topic RSV under 20 months Aged Out No longe r eligible based on patient's age to complete this topic Rotavirus Vaccines Aged Out No longer eligible based on patient's age to complete this topic Procedures Procedure Name Priority Date/Time Associated Diagnosis Comments GLUCOSE, WHOLE BLOOD Routine 06/25/2024 10:55 AM EST COMPREHENSIVE METABOLIC PANEL, FASTING Routine 06/22/2024 11:11 AM EST HEMOGLOBIN A1C Routine 06/22/2024 11:11 AM EST ALBUMIN, RANDOM URINE W/CREATININE Routine 06/22/2024 11:09 AM EST BI MAMMOGRAM SCREENING TOMOSYNTHESIS BILATERAL Routine 10/24/2023 12:40 PM EDT LIPID PANEL, STANDARD Routine 09/30/2023 8:11 AM EST HM COLONOSCOPY Routine 09/01/2015 from Last 3 Months or Most Recently Relevant to Health Maintenance Results * Glucose, Whole Blood (06/25/2024 10:55 AM EST) Glucose, Whole Blood 105 60 - 115 mg/dL [facility] Comment:METER #: [id number] 5Testing performed in the Endocrinology Department [address] , [address], [facility]. 06/25/2024 10:5 5 AM EST 06/25/2024 11:05 AM EST us Generic External Data Provider LAB BLOOD ORDERAB LES Final Result [facility] [address] [place] [phone] * (ABNORMAL) Comprehensive Metabolic Panel, Fasting (06/22/2024 11:11 AM EST) Sodium 140 135 - 145 mmol/L [facility] Potassium 4.5 3.3 - 5.1 mmol/L [facility] Chloride 105 96 - 108 mmol/L [facility] Carbon Dioxide 24 22 - 29 mmol/L [facility] Anion Gap 16 12 - 20 [facility] Urea Nitrogen (BUN) 35(H) 9 - 16 mg/dL [facility] Creatinine, Serum 1.87(H) 0.5 - 1.4 mg/dL [facility] Estimated Glomerular Filt Rate 26 [facility] Comment:Chronic Kidney Disea se: Estimated GFR < 60 mL/min/[id number] Kidney Disease: Estimated GFR < 15 mL/min/1.73m2 Glucose Fasting 231(H) 60 - 99 mg/dL [facility] Comment:A fasting glucose of 126 mg/dl or greater on more than oneoccasion is considered diagnostic of diabetes. Calcium 9.3 8.4 - 10.2 mg/dL [facility] Bilirubin, Total 0.4 0.0 - 1.0 mg/dL [facility] Aspartate Amino Transferase 26 5 - 31 U/L [facility] Alanine Aminotransferase 28 0 - 31 U/L [facility] Total Protein 6.9 6.5 - 8.0 g/dL [facility] Albumin Level 3.7 3.5 - 5.0 g/dL [facility] Alkaline Phosphatase 113 39 - 117 U/L [facility] 06/22/2024 11:1 1 AM EST 06/22/2024 11:11 AM EST us Generic External Data Provider LAB BLOOD ORDERAB LES Final Result Performing Organization Address City/State/[facility] de Phone Number [facility] [address] [place] [phone] * (ABNORMAL) Hemoglobin A1c (06/22/2024 11:11 AM EST) Hemoglobin A1c 8.0(H) <6.0 % [facility] Comment:Hemoglobin A1C Refer ence Range Adults: 4.8 - 6.0 % Non diabetic: < 6.0 % Goal: < 7.0 %Additional Action Suggested: > 8.0 %Note: Hemoglobin A1c results are invalid for patients with abnormal amounts of HbF. Blood transfusions may impact the HbA1c concentration in the patient sample. Estimated Average Glucose 183 mg/dL [facility] Comment:eAG = Estimated ave rage glucose which is %A1C expressed asaverage glucose, using the formula of the [id number] Glucose study (ADAG), Diabetes Care, Vol.31,#8,2007 06/22/2024 11:1 1 AM EST 06/22/2024 11:11 AM EST Generic External Data Provider LAB BLOOD ORDERAB LES Final Result Performing Organization Address [facility] de Phone Number [facility] [address] [place] [phone] * (ABNORMAL) Albumin, Random Urine W/Creatinine (06/22/2024 11:09 AM EST) Creatinine, Urine 56.40 mg/dL [facility] Microalbumin Urine 276.0 mg/L [facility] Microalbum Creatinine Ratio Ur 489.3(H) <30 ug/mg cr [facility] Comment:Albumin/Creatinine R atio Reference Ranges: Normal: < 30 ug/mg creatinine Microalbuminuria: 30 - 300 ug/mg creatinineClinical Albuminuria: > 300 ug/mg creatinine 06/22/2024 11:0 9 AM EST 06/22/2024 11:23 AM EST Generic External Data Provider LAB URINE ORDERAB LES Final Result Performing Organization Address [facility] de Phone Number [facility] [address] [place] [address] [phone] * BI Mammogram Screening Tomosynthesis Bilateral (10/24/2023 12:40 PM EDT) Anatomical Region Laterality Modality Breast Bilateral Mammography 10/24/2023 12:4 0 PM EDT Narrative 11/06/2023 3:28 PM EDT ? [facility] ? [address] ?[place] [address] ? Mammography Report ? Signed ? Patient: Sindi Obrien ?MR#: M ?? [id number] ? : 1950 ?Acct:[id number] ? Age/Sex: 72 / F ?ADM Date: 04//24 ? Loc: HO.MAMMO ? Attending Dr: Ventura Shi MD ? Ordering Physician: Ventura Shi MD ?Resu ?? lts: 2Benign Findings ? Date of Service: 10/24/23 ?Follow Up: 1 Year From Orig ?? inal Mammogram ? Procedure(s): MM tomosynthesis screening BI ?? Accession Number(s): [id number] ? cc: Ventura Shi MD ? EXAMINATION: ?? MM SCREENING DIGITAL BREAST TOMOSYNTHESIS, BILATERAL ? CLINICAL INFORMATION: ? Screening. Asymptomatic. ? COMPARISON: ?? Mammography: This study is compared with prior exams dating back to ?? 2018. ? TECHNIQUE: ?? Digital breast tomosynthesis is performed in both the craniocaudal and ?? mediolateral oblique views along with computer-aided detection (CAD). ?? Synthesized 2D images are generated from the tomosynthesis. ? FINDINGS: ?? There are scattered areas of fibroglandular density (ACR BI-RADS breast ?? composition Category b). ? There are no significant masses, abnormal calcifications, or other ?? abnormalities. ? There is a tissue marker in the medial aspect of the right breast from ?? prior benign percutaneous biopsy. ? MM/MM tomosynthesis screening BI ?? IMPRESSION: ?? No mammographic evidence of malignancy. ? ASSESSMENT: ? BI-RADS BI-RADS 2 - Benign Findings ? RECOMMENDATION: ?? Routine annual mammography screening. ? 1 year F/U ? This examination should not preclude the clinical evaluation of a ?? suspicious palpable abnormality. ? This patient's information was entered into a reminder system with a ?? target due date for their next mammogram. ? Dictated By: ?Hyacinth Moeller MD ? Signed By: ?<Electronically signed by Hyacinth Moeller MD in OV> ? 11/06/23 1525 ? DD/ 1240 ? TD/TT: ? Long Term Acute Care Registered Nurse: ? Procedure Note Dongregorio, Image - 11/06/2023 [facility] [address] [place], [place] [address] Mammography Report Signed Patient: Sindi ObrienMR#: M [id number] : 1950cct:[id number] Age/Sex: 72 / FADM Date: 10/24/23 Loc: HO.MAMMO Attending Dr: Ventura Shi MD Ordering Physician: Ventura Shi MDResu lts: 2Benign Findings Date of Service: 10/24/23Follow Up: 1 Year From Orig inal Mammogram Procedure(s): MM tomosynthesis screening BI Accession Number(s): [id number] cc: Ventura Shi MD EXAMINATION: MM SCREENING DIGITAL BREAST TOMOSYNTHESIS, BILATERAL CLINICAL INFORMATION: Screening. Asymptomatic. COMPARISON: Mammography: This study is compared with prior exams dating back to 2018. TECHNIQUE: Digital breast tomosynthesis is performed in both the craniocaudal and mediolateral oblique views along with computer-aided detection (CAD). Synthesized 2D images are generated from the tomosynthesis. FINDINGS: There are scattered areas of fibroglandular density (ACR BI-RADS breast composition Category b). There are no significant masses, abnormal calcifications, or other abnormalities. There is a tissue marker in the medial aspect of the right breast from prior benign percutaneous biopsy. MM/MM tomosynthesis screening BI IMPRESSION: No mammographic evidence of malignancy. ASSESSMENT: BI-RADS BI-RADS 2 - Benign Findings RECOMMENDATION: Routine annual mammography screening. 1 year F/U This examination should not preclude the clinical evaluation of a suspicious palpable abnormality. This patient's information was entered into a reminder system with a target due date for their next mammogram. Dictated By: Hyacinth Moeller MD Signed By: <Electronically signed by Hyacinth Moeller MD in OV> 11/06/23 1525 DD/ 1240 TD/TT: Long Term Acute Care Registered Nurse: us Ventura Maldonado MD IMG BI PROCEDURES Ortiz cesar Result - Final * Lipid Panel, Standard (09/30/2023 8:11 AM EST) Triglycerides 50 <150 mg/dL [facility] Comment:Desirable Triglyceri de: less than 150 mg/dLBorderline High Triglyceride 150-199 mg/dLHigh Triglyceride: 200-499 mg/dLVery High Triglyceride: greater than or equal to 5OO mg/dL Cholesterol 143 <200 mg/dL [facility] Comment:Desirable Cholestero l: less than 200 mg/dLBorderline High Cholesterol: 200-239 mg/dLHigh Cholesterol: greater than 239 mg/dL LDL Cholesterol Calculated 64 <100 mg/dL [facility] Comment:Desirable LDL: less than 100 mg/dLNear Optimal/Above Optimal LDL: 110- 129 mg/dLBorderline High LDL: 130-159 mg/dLHigh LDL: 160-189 mg/dLVery High LDL: greater than or equal to 190 mg/dL HDL Cholesterol 69 >40 mg/dL [facility] Comment:Desirable HDL: great er than 40 mg/dL Note: This HDL assay may give artificially low results in patients with liver disease. 09/30/2023 8:11 AM EST 09/30/2023 8:11 AM EST us Generic External Data Provider LAB BLOOD ORDERAB LES Final Result [facility] [address] [place] [address] [phone] * Colonoscopy (09/01/2015) Colonoscopy Normal Normal 09/01/2015 Brittany Patel - 09/01/2015 11:54 AM EST Recommended 10 year follow up us Historical Provider HEALTH MAINTENANCE Edited Result - Final from Last 3 Months or Most Recently Relevant to Health Maintenance Insurance [facility] Care Teams Cartographic Drafter Relationship Specialty Start Date End Date Ventura Tavares MD [address] [place] [address] PCP - General Internal Medicine 03/11/14
--- OUTSIDE RECORDS SUMMARY | 2024-09-03 10:53 | XMS_ITS | Encounter Summary ---
Author Organization [employer] [facility] Address [address] 7t [place] [address] Care Team Providers Care Solar Sales Assessor Name Role Phone Ventura Tavares MD Primary Care Provide r Reason for Visit * Reason Comments Med Refill Encounter Details Date Type Department Care Team ([facility] Contact Info) Description 02/24/2023 Refill [facility]INE [address] [place] [phone] Ventura Tavares MD [address] [place] [phone] Pain Social History Tobacco Use Types Packs/Day [...] Description 09/04/2024 2:15 PM EST Office Visit [facility]ICINE [address] [place] [phone] Ventura Tavares MD [address] [place] [address] documented as of this encounter Visit Diagnoses Diagnosis Pain Generalized pain documented in this encounter Additional Health Concerns Assessment Noted Time PHQ-9 Depression Total Score: 12 023 10:55 AM EDT documented as of this encounter Care Teams Solar Sales Assessor Relationship Specialty Start Date End Date Ventura Tavares MD [address] [place] [phone] PCP - General Internal Medicine 03/11/14 documented as of this encounter
--- OUTSIDE RECORDS SUMMARY | 2024-09-03 10:53 | XMS_ITS | Encounter Summary ---
Author Organization [employer] Address [address] 7[address] [place] [address] Care Team Providers Care Visual Artist Name Role Phone Ventura Tavares MD Primary Care Provide r Encounter Details Date Type Department Care Team ([facility] st Contact Info) Description 07/05/2023 Telephone [facility] [address] [place], [place] [phone] Ventura Tavares MD [address] [place] [address] Social History Tobacco Use Types Packs/Day Years Used Date Smoking Tobacco: Never Passive Smoke Exposure: Never Smokeless Tobacco: Never Alcohol Use Standard Drinks/Week Comments Never 0 (1 standard drink = 0.6 oz pur e alcohol) Depression Answer Date Recorded Patient Health Questionnaire-9 Score 12 12/21/2022 Housing Stability Answer Date Recorded What is your housing situation today? I have alisha hodges 05/11/[address] you li ve. Do you have problems with any of the following? None of the above 05/11/2023 Food Insecurity Answer Date Recorded Within the past 12 months, y ou worried that your food would run out before you got money to buy more: Never True 05/11/2023 Within the past 12 months,th e food you bought just didn't last and you didn't have enough money to get more: Never True Transportation Answer Date Recorded In the past 12 months, has l ack of transportation kept you from medical appts, meetings, work or from getting things needed for daily living? No 05/11/2023 Utilities Answer Date Recorded In the past 12 months, has t he electric, gas, oil or water company threatened to shut off services in your home? No 05/11/2023 Depression Answer Date Recorded Patient Health Questionnaire-2 Score 1 12/21/2022 Comments Unknown Sex and Gender Information Value Date Recorded Sex Assigned at Female 05/24/2022 10:15 AM EDT Legal Sex Female 10:15 AM EDT Gender Identity Female 05/24/2022 10:15 AM EDT Sexual Orientation Straight 05/24/2022 10 :15 AM EDT documented as of this encounter Miscellaneous Notes * Telephone Encounter - Yolis Gerber - 07/05/2023 2:11 PM EST Tc from farzad (POLYMER SPECIALIST) with [employer] calling to advise provider, a home assessment was done on behalf of [facility]and pt A1C came out to be 10.8 Any questions, contact Farzad at [phone] documented in this encounter Plan of Treatment Upcoming Encounters Date Type Department Care Team (Late st Contact Info) Description 09/04/2024 2:15 PM EST Office Visit [facility] [address] [place], [place] [phone] Ventura Tavares MD [address] [place] [address] documented as of this encounter Visit Diagnoses Not on filedocumented in this encounter Additional Health Concerns Assessment Noted Time PHQ-9 Depression Total Score: 12 023 10:55 AM EDT documented as of this encounter Care Teams Visual Artist Relationship Specialty Start Date End Date Ventura Tavares MD [address] [place], [place] [phone] PCP - General Internal Medicine 03/11/14 documented as of this encounter
--- OUTSIDE RECORDS SUMMARY | 2024-09-03 10:53 | XMS_ITS | Encounter Summary ---
Author Organization [employer] [facility] Address [address] 7t [place] [address] Care Team Providers Care Mortgage Lender Name Role Phone Ventura Tavares MD Primary Care Provide r Encounter Details Date Type Department Care Team ([facility] Contact Info) Description 04/07/2023 Telephone [facility] MEDICINE [address] [place] [address] [phone] Ventura Tavares MD [address] [place] [address] [phone] Social History Tobacco Use Types Packs/Day Years [...] Upcoming Encounters Date Type Department Care Team ([facility] Contact Info) Description 09/04/2024 2:15 PM EST Office Visit [facility] [address] [place] [address] [phone] Ventura Tavares MD [address] [place] [address] documented as of this encounter Visit Diagnoses Not on filedocumented in this encounter Additional Health Concerns Assessment Noted Time PHQ-9 Depression Total Score: 12 12/21/ 023 10:55 AM EDT documented as of this encounter Care Teams Mortgage Lender Relationship Specialty Start Date End Date Ventura Tavares MD [address] [place] [address] PCP - General Internal Medicine 03/11/14 documented as of this encounter
--- OUTSIDE RECORDS SUMMARY | 2024-09-03 10:53 | XMS_ITS | Clinical Summary ---
Author Organization [facility] Address [address] [place] [phone] Phone Care Team Providers Care Estate Agent Name Role Phone Ventura Schulz MD Primary Care Provider Unav ailable Allergies Active Allergy Reactions Criticality Noted Date Comments Lisinopril Other (see comments) 07/23/2010 Metformin Other (see comments) 05/23/2020 Medications aspirin (ST XIN) 81 MG EC tablet Take 1 tablet by mouth 1 (one) time each day Active gabapentin (NEURONTIN) 300 MG capsule Take 1 capsule by mouth 3 (three) times a day Active insulin glargine (Lantus) 100 UNIT/ML injection Inject 10 Units under the skin every night Active atorvastatin (LIPITOR) 40 MG tablet Take 1 tablet by mouth 1 (one) time each day 1 Active cholecalciferol (VITAMIN D-3) 50 MCG (1999 UT) capsule Take 1 capsule by mouth 1 (one) time each day 1 Active biotin 1000 MCG tablet Take 1,000 mcg by mouth 1 (one) time each day Active insulin aspart (NovoLOG) 100 UNIT/ML injection Inject under the skin 3 (three) times a day before meals Active hydrALAZINE 25 MG tablet Take 1 tablet by mouth 2 (two) times a day 1 Active Rybelsus 7 MG tablet Take 1 tablet by mouth 1 (one) time each day 2 Active omeprazole (PriLOSEC) [address] capsule Take 1 capsule by mouth 1 (one) time each day 2 Active metoprolol tartrate 25 MG tablet TOME IBIS TABLETA DOS VECES AL PABLO 180 tablet 1 2 Active Jardiance 10 MG tablet Take 10 mg by mouth 1 (one) time each day 3 Active Sodium Zirconium Cyclosilicate 10 g pack Take 10 g by mouth 3 (three) times a week 12 each 5 3 Active furosemide (LASIX) 20 MG tablet TOME IBIS TABLETA TODOS [place] KRAUS 90 tablet 1 3 Active Cholecalciferol (Vitamin D3) 50 MCG (1999 UT) tablet Take 1 tablet by mouth 1 (one) time each day 3 Active Active Problems Problem Noted Date Diagnosed Date Dyspnea on exertion 01/18/2023 03/09/2023 Overview (03/09/2023): Last Assessment & Plan: Seen by Dr Demarcus Larry with c/o LE edema, referred to cardiology seen by Dr Cosme 01/06/2023 ECHO ordered Patient encounter status 01/18/2023 023 Overview (03/09/2023): Last Assessment & Plan: Mammogram: Abnormal 05/05/2022 Biopsy 06/09/2023 Negative for malignancy Pap Smear: NL: 12/16/2005 s/p KATHARINA 20 years ago, no need to continue Colonoscopy: 09/01/2015 Dr Zamarripa Nl 10 year f/u Cellulitis of left lower limb 12/21/2022 Overview (03/09/2023): Seen on venous Doppler US 12/15 Last Assessment & Plan: Improving Pt seen at our [facility] by Dr Demarcus Larry, US negative for DVT. 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 Constipation 12/09/2021 Epigastric pain 12/09/2021 Gastroesophageal reflux disease 12/09/2021 Long-term current use of antiplatelet drug 12/09 Screening for malignant neoplasm of rectum 12/09 Hypertension 09/16/2021 Stage 3a chronic kidney disease 10/29/2020 Hypertensive chronic kidney disease, unspecified, with chronic kidney disease stage I through stage IV, or unspecified 10/29/2020 Renal disorder due to type 2 diabetes mellitus 0 10/29/2020 Proliferative diabetic retin opathy due to type 2 diabetes mellitus 01/18/2017 Anemia 04/06/2012 Depressive disorder 04/06/2012 Hyperlipidemia 04/06/2012 Osteoarthritis 04/06/2012 Shoulder pain 04/06/2012 Resolved Problems Problem Noted Date Diagnosed Date Resolved Date Morbid obesity 10/29/2020 09/16/2021 Onychomycosis 02/25/2020 09/16/2021 Pain in toe 02/25/2020 09/16/2021 Type 2 diabetes mellitus 02/25/2020 Immunizations Name Administration Dates Next Due Influenza Split 04/06/2012 Influenza Split High Dose Pr eservative Free IM 04/20/2018,05/19/2017 Influenza Vaccine, Quadrivalent, Adjuvanted 07/25,03/28/2020 Influenza, Quadrivalent, Preservative Free 05/03,05/12/2016 Influenza, Unspecified 03/25/2020 Moderna SARS-COV-2 06/24/2021,10/14/2020, 021 Pneumococcal Conjugate 13-Valent 02/13/2021 Pneumococcal Polysaccharide 03/07/2000 Td 10/15/2010 Tdap 02/13/2021 Zoster 02/04/2015 Family History Medical History Relation Comments Cancer Father Diabetes Mother Heart disease Mother Hypertension Mother Kidney disease Mother Relation Status Comments Father Mother Social History Tobacco Use Types Packs/Day Years Used Date Smoking Tobacco: Never Smokeless Tobacco: Never Tobacco Cessation:Counseling Given: Not Answered Alcohol Use Standard Drinks/Week Comments No 0 (1 standard drink = 0.6 oz pur e alcohol) Comments Unknown Sex and Gender Information Value Date Recorded Sex Assigned at Not on file Legal Sex Female 5:01 PM EST Gender Identity Not on file Sexual Orientation Not on file Last Filed Vital Signs Vital Sign Reading Time Taken Comments Blood Pressure 130/70 03/09/2023 2:46 PM EDT Pulse 58 03/09/2023 2:46 PM EDT Temperature - - Respiratory Rate - - Oxygen Saturation 98% 06/24/2021 2:28 PM EST Inhaled Oxygen Concentration - - Weight 76.1 kg (167 lb 12.8 oz) 03/09/2023 2:46 PM EDT Height 134.6 cm (4' 5 ) 03/12/2020 12:0 0 PM EDT Body Mass Index 42 03/12/2020 12:00 PM EDT Plan of Treatment Health Maintenance Due Date Last Done Comments Breast Cancer Screening 1950 Colorectal Cancer Screening: Annual FOBT 11/04/2000 Colorectal Cancer Screening: Colonoscopy 11/04/2000 Colorectal Cancer Screening: Sigmoidoscopy 11/04/2000 Diabetes: Ophthalmology Exam 08/24/2020 Diabetes: Pedal Pulse Checked 08/24/2020 Diabetes: Sensory Foot Exam 08/24/2020 Diabetes: Visual Foot Exam 08/24/2020 Diabetes: Hemoglobin A1C 09/21/2024 024, 05/15/2024, 12/21/2022 Influenza Vaccine Completed 05/15/2024, , 08/11/2021, Additional history exists Pneumococcal Vaccine: 65+ Years Completed 05/29/2024, 02/13/2021, 03/07/2000 Hepatitis B Vaccine Aged Out No longe r eligible based on patient's age to complete this topic Insurance [facility] MCR ([id number]) [place] [phone] [facility] MCR ([id number]) [place] [phone] Care Teams Estate Agent Relationship Specialty Start Date End Date Ventura Schulz MD [address] [place] [phone] PCP - General 08/04/20
[2024-09-03 11:29] LABS: Blood Urea Nitrogen 41 mg/dL (9-16)
[2024-09-03 11:34] LABS: Anion Gap 10 (12-20); Blood Urea Nitrogen 38 mg/dL (9-16); Carbon Dioxide 26 mmol/L (22-29); Chloride 110 mmol/L (96-108); Potassium 5.3 mmol/L (3.3-5.1); Sodium 141 mmol/L (135-145)
[2024-09-03 11:35] LABS: Alkaline Phosphatase 119 U/L (39-117); Aspartate Amino Transferase 27 U/L (5-31); Bilirubin Total 0.3 mg/dL (0.0-1.0); Estimated Glomerular Filt Rate 31; Glucose Fasting 151 mg/dL (60-99); Glucose Random 151 mg/dL (60-115); Total Protein 7.5 g/dL (6.5-8.0)
[2024-09-03 11:48] LABS: Alanine Aminotransferase 33 U/L (0-31)
== END 2024-09-03 10:01 | disposition home or self-care (01) ==
LOC: HO.HHCL 10:00
PROVIDERS: Family Medicine; Visit Provider Internal Medicine Nephrology
DX: I12.9 Hypertensive chronic kidney disease with stage 1 through stage 4 chronic kidney disease, or unspecified chronic kidney disease (principal); E11.21 Type 2 diabetes mellitus with diabetic nephropathy; E11.22 Type 2 diabetes mellitus with diabetic chronic kidney disease; N18.30 Chronic kidney disease, stage 3 unspecified; Z79.4 Long term (current) use of insulin
CPT/HCPCS: 36415; 80048; 80053; 84520

== ENCOUNTER 2024-09-05 09:51 | Outpatient (AMB) | payer OTHER, SELFPAY ==
--- NOTE | 2024-09-05 09:57 | HO.NEPHOV_ITS ---
Vital Signs 09/05/24 09:58 Height 4 ft 5 in Weight 171 lb BMI 42.8 BP 140/60 H Blood Pressure Location Lt brachial Position Sitting Pulse 58 Pulse Source Pulse Oximeter Pulse Oximetry (%) 95 Oxygen Delivery Method Room Air Intake Visit Reasons: 1mon follow-up w/labs/ Conf Provider Enrollment Specialist Required: Yes Provider Enrollment Specialist Language: Sawmill Tally Clerk Services: Provider Enrollment Specialist Offered & Declined ([facility] [place] [facility] interpreter services refused) Accompanied by: Daughter Allergies metformin [From GLUCOPHAGE] Adverse Reaction (Unknown, Verified 09/05/24 09:58) DIARRHEA HPI Comments Details: Sindi was seen in follow-up of her chronic kidney disease due to biopsy-proven diabetic nephropathy. Her blood sugar control continues to be labile. She has history of cerebrovascular accident. She has hypertension. She had no deficits from CVA. Blood pressure is better controlled. She has not good with her diet and weight loss. She denies using any nonsteroidal anti-inflammatories but consumes normal sodium and has a normal diet. she was on angiotensin receptor claude in the past which she did not tolerate very well. She denies chest pain, shortness of breath, paroxysmal nocturnal dyspnea, orthopnea, pedal edema, urinary symptoms or orthostasis. She tries to maintain herself with good hydration. She has been having facial swelling and pedal edema which resolved with diuresis. She is not very compliant with low sodium diet. She has been on losartan which has been put on hold since she has been having hyperkalemia. She has been on Kayexalate once a week. 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 Diabetic nephropathy associated with type 2 diabetes mellitus Dyslipidemia Diabetes type 2, uncontrolled Surgical History Hx of tubal ligation Hx of bilateral cataract extraction Hx of hysterectomy History of appendectomy Family History Father Cancer Mother Diabetes mellitus Social History Household Members: None Housing: Apartment Do you presently have visiting nurse or other home services: Yes Alcohol intake: never Patient Tobacco Use Status: Never used Tobacco Second Hand Smoke Exposure: No Advance Directives Date on File: 11/26/20 service: No Current occupational status: disabled Current occupation: rt handed Female Reproductive History Menstrual Age of Menarche: 12 Review of Systems Const All systems reviewed & are unremarkable except as noted in HPI and below Physical Exam Const General: comfortable and no acute distress Orientation/consciousness: patient oriented x3 HEENT Head: Yes normocephalic Mouth: Normal oral and palatal mucosa present Eyes EOM: EOMs intact bilaterally Neck Neck: Yes supple Resp Auscultation: clear to auscultation bilaterally Cardio Jugular venous distension: no JVD Rate: regular rate GI Palpation (GI): Soft to palpation Auscultation: normal bowel sounds General: Yes no CVA tenderness Back/Spine/Pelvis Back: no CVA tenderness Skin General skin exam: no rashes or lesions noted Neuro General: patient oriented x3 and moves all extremities Extrem General: Yes no pedal edema Results Reviewed Nephrology Results: Hgb 11.5 g/dl (12.0-16.0) L 05/18/24 WBC 4.7 X10*3/uL (4.8-10.8) L 05/18/24 Plt Count 175 X10*3/uL (160-400) 05/18/24 Sodium 141 mmol/L (135-145) 09/03/24 Potassium 5.3 mmol/L (3.3-5.1) H 09/03/24 Chloride 110 mmol/L (96-108) H 09/03/24 Carbon Dioxide 26 mmol/L (22-29) 09/03/24 BUN 38 mg/dL (9-16) H 09/03/24 Creatinine 1.64 mg/dL (0.5-1.4) H 09/03/24 Calcium 9.0 mg/dL (8.4-10.2) 09/03/24 Urine Creatinine 56.40 mg/dL 06/22/24 Assessment & Plan Assessment & Plan (1) CKD stage 3 due to type 2 diabetes mellitus: Code(s): E11.22 - Type 2 diabetes mellitus with diabetic chronic kidney disease; N18.30 - Chronic kidney disease, stage 3 unspecified Category: Medical (2) Hyperkalemia: Code(s): E87.5 - Hyperkalemia Category: Medical (3) Hypertension: Code(s): I10 - Essential (primary) hypertension Category: Medical Qualifiers: Hypertension type: primary hypertension Qualified Code(s): I10 - Essential (primary) hypertension Plan Sindi has 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 Her renal biopsy in the past showed significant disease from diabetes and hypertension. She had been off angiotensin receptor claude now, since she had hyperkalemia. I plan to restart it later. She should be on a low-potassium diet. I plan to increase her Jardiance to 25 mg daily, at next visit . She should maintain a tighter blood sugar control. She should cut back sodium in the diet and lose weight. She should maintain good hydration and avoid nonsteroidal anti-inflammatories. I increased her Kayexalate to 30 Gram twice a week for now. I have ordered follow up blood work. Follow up appointment given Orders: Orders Creatinine 2 Months E11.22 - Type 2 diabetes mellitus with diabetic chronic kidney disease, I10 - Essential (primary) hypertension, N18.30 - Chronic kidney disease, stage 3 unspecified Blood Urea Nitrogen 2 Months E11.22 - Type 2 diabetes mellitus with diabetic chronic kidney disease, I10 - Essential (primary) hypertension, N18.30 - Chronic kidney disease, stage 3 unspecified Electrolytes 2 Months E11.22 - Type 2 diabetes mellitus with diabetic chronic kidney disease, I10 - Essential (primary) hypertension, N18.30 - Chronic kidney disease, stage 3 unspecified Coding Level of Care Code Est Pt Level 4 (76024) Diagnoses CKD stage 3 due to type 2 diabetes mellitus E11.22; N18.30 Hyperkalemia E87.5 Primary hypertension I10 Hypertension type: primary hypertension
[2024-09-05 09:58] VITALS: BP 140/60; PULSE 58; O2SAT 95; BMI 42.8
--- OUTSIDE RECORDS SUMMARY | 2024-09-05 11:25 | XMS_ITS | Clinical Summary ---
Author Organization [employer] Address [address] [facility] 7[address] [place] [address] Care Team Providers Care Charger Operator Name Role Phone Ventura Tavares MD Primary [...] Continuous Glucose Sensor (FreeStyle Blake 3 Sensor) [facility] Apply 1 Device topically [...] Active Problems Problem Noted Date Diagnosed Date Lactose intolerance 09/04/2024 Assessment & Plan (09/04/2024 2:15 PM EST): Patient reports lactose intolerance Would benefit from drinking Lactaid PB (obstructive sleep apnea) 05/24/2024 Overview (05/24/2024): [...] at least 5-10 lb ) Hyperkalemia 05/24/2024 Assessment & Plan (09/04/2024 1:58 PM EST): Seen in the ER Follows with Nephrology, last seen 05/28/2024 Chronic constipation 09/22/2023 Assessment & Plan (09/22/2023 1:33 PM EST): Not improving despite increase fluids, fiber and laxatives Will refer to Gastroenterology Nevus 05/29/2023 Assessment & Plan (05/29/2023 11:24 AM EST): There are multiple skin lesions, nevus , pt concern w nevus in posterior neck , that appears bluish ,regular borders -referred today to appellate court judge Routine physical examination 04/19/2023 Assessment & Plan [...] (dyspnea on exertion) 01/18/2023 Assessment & Plan (09/04/2024 2:02 PM EST): Seen initially by Dr Demarcus Larry with c/o LE edema and elevated BNP, CXR was unermarkable. Dr. Larry spoke with Dr. Cosme's office (her smelter charger), pt was seen 12/27/2023. We notified the office that her humanities coordinator Dr. Silverio prescribes Lasix 20 mg 2 tabs po daily. Patient followed by Dr Cosme Zipper Repairer, Previous Stress Test and ECHO unremarkable. Last seen 07/03/2024. Assessment & Plan (05/15/2024 1:05 PM EDT): Seen initially by Dr Demarcus Larry with c/o LE edema and elevated BNP, CXR was unermarkable. Dr. Larry spoke with Dr. Cosme's office (her smelter charger), pt was seen 12/27/2023. We notified the office that her humanities coordinator Dr. Silverio prescribes Lasix 20 mg 2 tabs po daily. Patient followed by Dr Cosme Zipper Repairer, Previous Stress Test and ECHO unremarkable. Last seen 12/27/2023. Assessment & Plan (09/22/2023 11:38 AM EST): Seen by Dr Demarcus Larry with c/o LE edema, referred to cardiology seen by Dr Cosme Zipper Repairer, Stress Test and ECHO unremarkable Assessment & Plan (01/18/2023 10:50 AM EDT): Seen by Dr Demarcus Larry with c/o LE edema, referred to cardiology seen by Dr Cosme 01/06/2023 ECHO ordered Preventative health care 01/18/2023 Assessment & Plan (09/04/2024 2:05 PM EST): Mammogram: Abnormal 05/05/2022 Biopsy 06/09/2022 Negative for malignancy repeat 10/24/2023 Normal Pap Smear: NL: 12/16/2005 s/p KATHARINA 20 years ago, no need to continue Colonoscopy: 09/01/2015 Dr Zamarripa Nl 10 year f/u Assessment & Plan (04/19/2023 1:55 PM EDT): Mammogram: Abnormal 05/05/2022 Biopsy 06/09/2022 Negative for malignancy Pap Smear: NL: 12/16/2005 s/p KATHARINA 20 years ago, no need to continue Colonoscopy: 09/01/2015 Dr Zamarripa Nl 10 year f/u Assessment & Plan (03/24/2023 [...] 2 diabetes mellitus 01/18/2017 Assessment & Plan (09/04/2024 2:13 PM EST): Last seen by Opthalmology 12/06/2023 Under the care of retina specialist Assessment & Plan (09/22/2023 11:42 AM EST): Last seen by Opthalmology 08/25/2023 Under the care of retina specialist Assessment & Plan (01/18/2023 10:53 AM EDT): Under the care of retina specialist Hypertension 04/06/2012 Assessment & Plan (09/04/2024 2:04 PM EST): Pt here for a f/u BP controlled She is on a regimen of: Metoprolol 25 mg po BID. Lasix 20 mg po 2 tabs daily (nephrology), Cozaar 25 mg po daily and Hydralazine BID. She is no longer on Norvasc. Most recent electrolytes Creatinine done on: Lab Results Component Value Date NA 140 06/22/2024 NA 142 05/18/2024 K 4.5 06/22/2024 K 5.0 05/18/2024 CL 105 06/22/2024 CL 107 05/18/2024 BUN 35 (H) 06/22/2024 BUN 37 (H) 05/18/2024 CREATININE 1.87 (H) 06/22/2024 CREATININE 1.68 (H) 05/18/2024 Counseled about taking her medications regularly Plan: continue with current regimen Patient advised to adhere to a low sodium diet, encouraged about medication compliance, counseled about weight loss. Assessment & Plan (05/15/2024 11:04 AM EDT): [...] III (moderat e) 04/06/2012 Assessment & Plan (09/04/2024 2:04 PM EST): Under the care of Nephrology Dr Ji seen in 06/25/2024 Assessment & Plan (05/15/2024 10:20 AM EDT): Under the care of Nephrology Dr Ji seen in 05/11/2024 Assessment & Plan (09/22/2023 11:37 AM EST): Under the care of Nephrology Dr Ji seen in 08/29/2023 Assessment & Plan (01/18/2023 10:52 AM EDT): Under the care of Nephrology Dr Ji seen in October 2022 Depressive disorder 04/06/2012 Assessment & Plan (09/04/2024 2:14 PM EST): Seeing Trinh Su at [facility]3] Hyperlipidemia 04/06/2012 Assessment & Plan (09/04/2024 2:05 PM EST): Last Lab Results Component Value Date TRIG 50 09/30/2023 TRIG 64 12/31/2022 CHOL 143 09/30/2023 LDLCHOLCAL 64 09/30/2023 HDL 69 09/30/2023 Will repeat Osteoarthritis 04/06/2012 Type 2 diabetes mellitus 04/06/2012 Assessment & Plan (09/04/2024 2:11 PM EST): Patient is here for a follow up Back under the care of Endocrinology , last seen 06/25/2024 hgb A1c 09/04/2024: 9 from 8.9 from 8.2 She is on a regimen of: Lantus 15 units sc at pm and Novolog 10 units sc before meals. Restarted taking Jardiance 10 mg Pt stopped taking Ozempic 0.25 once a week due to the fact due to abdominal discomfort Microalbumin on 09/30/2023 was 229 pt is off ARB. Foot check: , moderate reduction in peripheral sensation on R foot, mild reduction L foot. On asa 81 mg po daily. Plan: As per Endocrinology Eye exam with [facility] diagnosed with Dr. both eyes. Last seen 12/06/2023 Pt does not adhere to a diabetic diet, does not want to go any higher on her insulin dose as it was recommended by her Corporate Learning Consultant. Pt advised to Adhere to diabetic diet 3 months f/u Assessment & Plan (05/15/2024 11:15 AM EDT): [...] Plan: As per Endocrinology Eye exam with [facility] 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 Last seen 12/06/2023 Pt does not adhere to a diabetic diet, does not want to go any higher on her insulin dose as it was recommended by her Corporate Learning Consultant. Pt advised to Adhere to diabetic diet [...] 81 mg po daily. Eye exam with [facility] diagnosed with DR both eyes 10/26/2016 Pt does not adhere to a diabetic diet, does not want to go any higher on her insulin dose as it was recommended by her Corporate Learning Consultant. Pt advised to Adhere to diabetic diet [...] 81 mg po daily. Eye exam with [facility] diagnosed with DR both eyes 10/26/2016 Pt does not adhere to a diabetic diet, does not want to go any higher on her insulin dose as it was recommended by her Corporate Learning Consultant. Pt advised to Adhere to diabetic diet [...] 81 mg po daily. Eye exam with [facility] diagnosed with DR both eyes 10/26/2016 Pt does not adhere to a diabetic diet, does not want to go any higher on her insulin dose as it was recommended by her Corporate Learning Consultant. Pt advised to Adhere to diabetic diet [...] 81 mg po daily. Eye exam with [facility] diagnosed with DR both eyes 10/26/2016 Pt does not adhere to a diabetic diet, does not want to go any higher on her insulin dose as it was recommended by her Corporate Learning Consultant. Pt advised to Adhere to diabetic diet [...] 81 mg po daily. Eye exam with [facility] diagnosed with DR both eyes 10/26/2016 Pt does not adhere to a diabetic diet, does not want to go any higher on her insulin dose as it was recommended by her Corporate Learning Consultant. Pt advised to Adhere to diabetic diet [...] Encounters Date Type Department Care Team Description 09/04/2024 2:15 PM EST Office Visit [facility] [address] [place] [phone] Ventura Tavares MD Hyperkalemia (Primary Dx); Type 2 diabetes mellitus with stage 3a chronic kidney disease, with long-term current use of insulin ([facility]); [place] (dyspnea on exertion); Primary hypertension; Stage 3a chronic kidney disease (CMS/HCC); Preventative health care; Mixed hyperlipidemia; 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 ([facility]); Depressive disorder; Lactose intolerance 09/04/2024 Travel 08/27/2024 Telephone [facility] [address] [place] [phone] Ventura Tavares MD Error (VOID this visit) 08/21/2024 Refill [facility] [address] [place] [phone] Ventura Tavares MD Pain 08/15/2024 Telephone [facility] [address] [place] [phone] Ventura Tavares MD Appointment Confirmation 08/01/2024 Telephone [facility] [address] [place] [phone] Ventura Tavares MD Chart Prep 07/26/2024 8:40 AM EST Office Visit [facility] [address] [place] [phone] Trung Wu MD Greater trochanteric bursitis of left hip (Primary Dx) 07/10/2024 2:30 PM EST Telemedicine [facility] [address] [place] [phone] Chelsy Dickson, Annette Type 2 diabetes mellitus with stage 3a chronic kidney disease, with long-term current use of insulin ([facility]) (Primary Dx); Primary hypertension 06/25/2024 Orders Only GENERIC EXTERNAL DATA DEPARTMENT Provider, Generic External Data 06/22/2024 Orders Only GENERIC EXTERNAL DATA DEPARTMENT Provider, Generic External Data 06/18/2024 Travel 06/07/2024 Refill [facility] [address] [place] [address] Ventura Tavares MD from Last 3 Months [...] Sign Reading Time Taken Comments Blood Pressure 140/80 09/04/2024 2:12 PM EST Pulse 60 09/04/2024 1:55 PM EST Temperature 36 ??C (96.8 ??F) 09/04/2024 1:55 PM EST Respiratory Rate 20 09/04/2024 1:55 PM EST Oxygen Saturation 95% 09/04/2024 1:55 PM EST Inhaled Oxygen Concentration - - Weight 76.7 kg (169 lb) 09/04/2024 1:55 PM EST Height 134.6 cm (4' 5 ) 09/04/2024 1:55 PM EST Body Mass Index 42.3 09/04/2024 1:55 PM EST Plan of Treatment Upcoming Encounters Date Type Department Care Team (Late st Contact Info) Description 12/04/2024 10:15 AM EDT Office Visit [facility] [address] [place] [address] Ventura Tavares MD [address] [place] [address] Health Maintenance Due Date Last Done Comments CT Colonography 1950 FIT DNA/Cologuard 1950 FIT 1950 FOBT 1950 Sigmoidoscopy 1950 Diabetes: Foot Exam 11/04/1961 Eye Exam 11/04/1961 Hepatitis C Screening 11/04/1969 RSV Patients and Patients Aged 60 years or older (1 - Risk 60-74 years 1-dose series) 2011 Zoster Vaccines (2 of 3) 04/01/2015 02/04/2015 Lipid Panel 09/29/2024 09/30/2023, 03/2023, 04/05/2022, Additional history exists Mammogram 10/23/2024 10/24/2023, 04/24, 05/05/2022, Additional history exists Diabetes: Hemoglobin A1C 12/02/2024 025, 06/22/2024, 05/15/2024, Additional history exists Alcohol/Substance Use Screening 05/15/2025 05/15/2024 Depression Screening 05/15/2025 05/15/2024, 05/15/20 24 SDOH Screening 05/15/2025 05/15/2024 Colonoscopy 09/01/2025 09/01/2015 Colorectal Cancer Screening 09/01/2025 Tobacco Screening 09/04/2025 09/04/2024 DTaP/Tdap/Td Vaccines (2 - Td or Tdap) [...] Procedure Name Priority Date/Time Associated Diagnosis Comments POCT GLYCATED HEMOGLOBIN, TOTAL Routine 09/04/2024 2:05 PM EST Type 2 diabetes mellitus with stage 3a chronic kidney disease, with long-term current use of insulin ([facility]) POCT GLUCOSE Routine 09/04/2024 2:01 PM EST Type 2 diabetes mellitus with stage 3a chronic kidney disease, with long-term current use of insulin ([facility]) GLUCOSE, WHOLE BLOOD Routine 06/25/2024 10:55 AM [...] Recently Relevant to Health Maintenance Results * (ABNORMAL) POCT HGB A1C (09/04/2024 2:05 PM EST) Hemoglobin A1C 9.0(A) 4.0 - 6.0 % QC Media Lot # [id number] Lot# Expiration Date Blood 09/04/2024 2:05 PM EST Ventura Maldonado MD POINT OF CARE TEST EN TER/EDIT ORDERABLES Final Result * (ABNORMAL) POCT Glucose (09/04/2024 2:01 PM EST) Glucose Blood, POC 283(A) 60 - 200 mg/dL QC Media Lot # [id number] Lot# Expiration Date Blood Capillary blood specimen / Unknown 09/04/2024 2:01 PM EST Ventura Maldonado MD POINT OF CARE TEST EN TER/EDIT ORDERABLES Final Result * Glucose, Whole Blood (06/25/2024 10:55 AM EST) Glucose, Whole Blood 105 60 - 115 mg/dL [facility] Comment:METER #: [id number] 5Testing performed in the Endocrinology Department [address] , [address], [facility]. 06/25/2024 10:5 5 AM EST 06/25/2024 11:05 AM EST Generic External Data Provider LAB BLOOD ORDERAB LES Final Result [facility] [address] [place] [phone] * (ABNORMAL) Comprehensive Metabolic Panel, Fasting (06/22/2024 11:11 AM EST) Sodium 140 135 - 145 mmol/L [facility] Potassium 4.5 3.3 - 5.1 mmol/L [facility] Chloride 105 96 - 108 mmol/L [facility] Carbon Dioxide 24 22 - 29 mmol/L [facility] Anion Gap 16 12 - 20 [facility] Urea Nitrogen (BUN) 35(H) 9 - 16 mg/dL [facility] Creatinine, Serum 1.87(H) 0.5 - 1.4 mg/dL [facility] Estimated Glomerular Filt Rate 26 [facility] Comment:Chronic Kidney Disea se: Estimated GFR < 60 mL/min/1.18m7Jgvtsk Kidney Disease: Estimated GFR < 15 mL/min/1.73m2 Glucose Fasting 231(H) 60 - 99 mg/dL [facility] Comment:A fasting glucose of 126 mg/dl or greater on more than oneoccasion is considered diagnostic of diabetes. Calcium 9.3 8.4 - 10.2 mg/dL [facility] Bilirubin, Total 0.4 0.0 - 1.0 mg/dL [facility] Aspartate Amino Transferase 26 5 - 31 U/L [facility] Alanine Aminotransferase 28 0 - 31 U/L [facility] Total Protein 6.9 6.5 - 8.0 g/dL [facility] Albumin Level 3.7 3.5 - 5.0 g/dL [facility] Alkaline Phosphatase 113 39 - 117 U/L [facility] 06/22/2024 11:1 1 AM EST 06/22/2024 11:11 AM EST us Generic External Data Provider LAB BLOOD ORDERAB LES Final Result [facility] [address] [place] [phone] * (ABNORMAL) Hemoglobin A1c (06/22/2024 11:11 AM EST) Hemoglobin A1c 8.0(H) <6.0 % [facility] Comment:Hemoglobin A1C Refer ence Range Adults: 4.8 - 6.0 % Non diabetic: < 6.0 % Goal: < 7.0 %Additional Action Suggested: > 8.0 %Note: Hemoglobin A1c results are invalid for patients with abnormal amounts of HbF. Blood transfusions may impact the HbA1c concentration in the patient sample. Estimated Average Glucose 183 mg/dL [facility] Comment:eAG = Estimated ave rage glucose which is %A1C expressed asaverage glucose, using the formula of the K7E-SnfwvmdAehmxaj Glucose study (ADAG), Diabetes Care, Vol.31,#8,Feb. 2007 06/22/2024 11:1 1 AM EST 06/22/2024 11:11 AM EST Generic External Data Provider LAB BLOOD ORDERAB LES Final Result Performing Organization Address [facility] Phone Number [facility] [address] [place] [phone] * (ABNORMAL) Albumin, Random Urine W/Creatinine (06/22/2024 11:09 AM EST) Creatinine, Urine 56.40 mg/dL [facility] Microalbumin Urine 276.0 mg/L H [facility] Microalbum Creatinine Ratio Ur 489.3(H) <30 ug/mg cr [facility] Comment:Albumin/Creatinine R atio Reference Ranges: Normal: < 30 ug/mg creatinine Microalbuminuria: 30 - 300 ug/mg creatinineClinical Albuminuria: > 300 ug/mg creatinine 06/22/2024 11:0 9 AM EST 06/22/2024 11:23 AM EST Generic External Data Provider LAB URINE ORDERAB LES Final Result Performing Organization Address [facility] Phone Number [facility] [address] [place] [phone] * BI Mammogram Screening Tomosynthesis Bilateral (10/24/2023 12:40 PM EDT) Anatomical Region Laterality Modality Breast Bilateral Mammography 10/24/2023 12:4 0 PM EDT Narrative 11/06/2023 3:28 PM EDT ? [facility] ? [address] ?[place] [address] ? Mammography Report ? Signed ? Patient: Sindi Obrien ?MR#: [id number] ?? [id number] ? : 1950 ?Acct:[id number] ? Age/Sex: 72 / F ?ADM Date: 04//24 ? Loc: HO.MAMMO ? Attending Dr: Ventura Shi MD ? Ordering Physician: Ventura Shi MD ?Resu ?? lts: 2Benign Findings ? Date of Service: 10/24/23 ?Follow Up: 1 Year From Orig ?? inal Mammogram ? Procedure(s): MM tomosynthesis screening BI ?? Accession Number(s): [id number] ? cc: Ventura Shi MD ? EXAMINATION: [...] 1525 ? DD/ 1240 ? TD/TT: ? Probation Worker: ? Procedure Note Dongregorio, Image - 11/06/2023 [facility] [address] [place], [place] [address] Mammography Report Signed Patient: Sindi ObrienMR#: M [id number] : 1950cct:[id number] Age/Sex: 72 / FADM Date: 10/24/23 Loc: HO.MAMMO Attending Dr: Ventura Shi MD Ordering Physician: Ventura Shi MDResu lts: 2Benign Findings Date of Service: 10/24/23Follow Up: 1 Year From Orig inal Mammogram Procedure(s): MM tomosynthesis screening BI Accession Number(s): [id number] cc: Ventura Shi MD EXAMINATION: MM SCREENING [...] Moeller MD Signed By: <Electronically signed by Haycinth Moeller MD in [place]> 11/06/23 1525 DD/ 1240 TD/TT: Probation Worker: us Ventura Maldonado MD IMG BI PROCEDURES Ortiz cesar Result - Final * Lipid Panel, Standard (09/30/2023 8:11 AM EST) Triglycerides 50 <150 mg/dL [facility] Comment:Desirable Triglyceri de: less than 150 mg/dLBorderline High Triglyceride 150-199 mg/dLHigh Triglyceride: 200-499 mg/dLVery High Triglyceride: greater than or equal to 5OO mg/dL Cholesterol 143 <200 mg/dL [facility] Comment:Desirable Cholestero l: less than 200 mg/dLBorderline High Cholesterol: 200-239 mg/dLHigh Cholesterol: greater than 239 mg/dL LDL Cholesterol Calculated 64 <100 mg/dL [facility] Comment:Desirable LDL: less than 100 mg/dLNear Optimal/Above Optimal LDL: 110- 129 mg/dLBorderline High LDL: 130-159 mg/dLHigh LDL: 160-189 mg/dLVery High LDL: greater than or equal to 190 mg/dL HDL Cholesterol 69 >40 mg/dL [facility] Comment:Desirable HDL: great er than 40 mg/dL Note: This HDL assay may give artificially low results in patients with liver disease. 09/30/2023 8:11 AM EST 09/30/2023 8:11 AM EST us Generic External Data Provider LAB BLOOD ORDERAB LES Final Result [facility] [address] [place] [phone] * Colonoscopy (09/01/2015) Colonoscopy Normal Normal 09/01/2015 Brittany Patel - 09/01/2015 11:54 AM EST Recommended 10 year follow up us Historical Provider HEALTH MAINTENANCE Edited Result - Final from Last 3 Months or Most Recently Relevant [place] [id number] [facility] Care Teams Charger Operator Relationship Specialty Start Date End Date Ventura Tavares MD [address] [place] [phone] PCP - General Internal Medicine 03/11/14
--- OUTSIDE RECORDS SUMMARY | 2024-09-05 11:25 | XMS_ITS | Encounter Summary ---
Author Organization [employer] Address [address] [place] [address] Care Team Providers Care Nutrition Services Manager Name Role Phone Ventura Tavares MD Primary Care Provide r Reason for Visit * Reason Comments Med Refill Encounter Details Date Type Department Care Team ([facility] st Contact Info) Description 08/21/2024 Refill [facility] [address] [place] [address] Ventura Tavares MD [address] [place] [address] Pain Social History Tobacco Use Types Packs/Day [...] Description 12/04/2024 10:15 AM EDT Office Visit [facility] [address] [place] [address] Ventura Tavares MD [address] [place] [address] documented as of this encounter Visit Diagnoses Diagnosis Pain Generalized pain documented in this encounter Additional Health Concerns Assessment Noted Time PHQ-9 Depression Total Score: 0 05/15/20 24 10:57 AM EDT documented as of this encounter Care Teams Nutrition Services Manager Relationship Specialty Start Date End Date Ventura Tavares MD [address] [place] [phone] PCP - General Internal Medicine 03/11/14 documented as of this encounter
--- OUTSIDE RECORDS SUMMARY | 2024-09-05 11:25 | XMS_ITS | Encounter Summary ---
Author Organization [employer] Address [address] [place] [address] Care Team Providers Care Rotary Rig Engine Operator Name Role Phone Ventura Tavares MD Primary Care Provide r Reason for Visit * Reason Onset Date Comments Error (VOID this visit) 08/27/2024 Encounter Details Date Type Department Care Team ([facility] st Contact Info) Description 08/27/2024 Telephone [facility] [address] [place] [address] Ventura Tavares MD [address] [place], [place] [phone] Error (VOID this visit) Social History Tobacco [...] Description 12/04/2024 10:15 AM EDT Office Visit [facility] [address] [place] [address] Ventura Tavares MD [address] [place] [address] documented as of this encounter Visit Diagnoses Not on filedocumented in this encounter Additional Health Concerns Assessment Noted Time PHQ-9 Depression Total Score: 0 05/15/20 24 10:57 AM EDT documented as of this encounter Care Teams Rotary Rig Engine Operator Relationship Specialty Start Date End Date Ventura Tavares MD [address] [place] [address] PCP - General Internal Medicine 03/11/14 documented as of this encounter
--- OUTSIDE RECORDS SUMMARY | 2024-09-05 11:25 | XMS_ITS | Encounter Summary ---
Author Organization [employer] Address [address] [place] [address] Care Team Providers Care Lawn Service Worker Name Role Phone Ventura Tavares MD Primary Care Provide r Reason for Visit * Reason Onset Date Comments Appointment Confirmation 08/15/2024 Encounter Details Date Type Department Care Team ([facility] st Contact Info) Description 08/15/2024 Telephone [facility] [address] [place] [address] Ventura Tavares MD [address] [place] [address] Appointment Confirmation Social History Tobacco Use Types [...] appt that was on 08/14/2024. Had to [facility] for acall back to schedule. T/C- Wafer Fabrication Operator Left Voice Mail to return call to schedule an appointment. Recall letter sent. Appointment: Office Visit Note: DM Month: August With: Zeus Please schedule appointment if Patient calls Back. documented in this encounter Plan of Treatment Upcoming Encounters Date Type Department Care Team (Late st Contact Info) Description 12/04/2024 10:15 AM EDT Office Visit [facility] [address] [place] [address] Ventura Tavares MD [address] [place] [address] documented as of this encounter Visit Diagnoses Not on filedocumented in this encounter Additional Health Concerns Assessment Noted Time PHQ-9 Depression Total Score: 0 05/15/20 24 10:57 AM EDT documented as of this encounter Care Teams Lawn Service Worker Relationship Specialty Start Date End Date Ventura Tavares MD [address] [place] [address] PCP - General Internal Medicine 03/11/14 documented as of this encounter
--- OUTSIDE RECORDS SUMMARY | 2024-09-05 11:25 | XMS_ITS | Encounter Summary ---
Author Organization [employer] Address [address] [facility] 7t [place] [address] Care Team Providers Care Hospital Chief Financial Officer Name Role Phone Ventura Tavares MD Primary Care Provide r Encounter Details Date Type Department Care Team ([facility] Contact Info) Description 09/20/2022 Orders Only [facility] MED & PEDS [address] [place], [place] [phone] Terra Hannon LPN Social History Tobacco Use [...] Upcoming Encounters Date Type Department Care Team ([facility] Contact Info) Description 12/04/2024 10:15 AM EDT Office Visit [facility] MEDICINE [address] [place], [place] [phone] Ventura Tavares MD [address] [place], [place] [phone] documented as of this encounter Visit Diagnoses Not on filedocumented in this encounter Care Teams Hospital Chief Financial Officer Relationship Specialty Start Date End Date Ventura Tavares MD [address] [place] [phone] PCP - General Internal Medicine 03/11/14 documented as of this encounter
--- OUTSIDE RECORDS SUMMARY | 2024-09-05 11:26 | XMS_ITS | Patient Health Record ---
Author Organization [facility] Address [address] [place] [address] Care Team Providers Care Industrial Trainer Name Role Phone Zeus Maldonado MD, Ventura Primary Care Provide Castillo Cash Unavailable [phone] ALLERGIES Allergen (clinical drug ingredient) Drug/Non Drug [...] for 30 days 10/13/2022 Active Vitamin D3 14023 UNIT 1 tablet Orally On ce a [...] malignant neoplasm of colon (Z12.11) Active confirmed 232213248 Problem Encounter for screening for malignant neoplasm of rectum (Z12.12) Active confirmed Screening fo r malignant neoplasm of rectum (534087769) Problem Long-term use of aspirin therapy (Z79.82) Active confirmed 097021116 Problem Constipation, unspecified constipation type (K59.00) Active confirmed 61604832 Problem GERD (gastroesophage al reflux disease) (K21.9) Active confirmed Gastroesophagea l reflux disease (170524642) Problem Constipation, chronic (K59.00) Active confirmed Chronic constipation (832978533) Problem Epigastric abdominal pain (R10.13) Active confirmed Epigastric pain (87617551) PLAN OF TREATMENT Pending Test Test Name Order Date US ABD 05/23/2020 TSH REFLEX FREE T4 10/13/2022 Future Test Test Name Order Date COLONOSCOPY 06/12/2015 UPPER GI ENDOSCOPY 05/23/2020 Insurance Providers Payer Name Payer Address Payer Phone Subscriber Number Group Number Insured Name Patient Relationship to Insured Coverage Start Date Coverage End Date [facility] [address] [place] [phone] [id number] CARINE LOCKHART Self - patient is the insured MEDICAL (GENERAL) HISTORY Medical History History ICD Code Screening colonoscopy 01/2005 and 08/2015--negative except for diverticulosis and internal hemorrhoids IDDM Hyperlipidemia Denies MS CVA > 10 yrs ago Asthma Chronic kidney disease state III-Dr. Rafael clayton HTN GERD Surgical History Surgery Date(Month/Year) Appendectomy Tubal ligation KATHARINA Cataracts and lens implants
--- OUTSIDE RECORDS SUMMARY | 2024-09-05 11:26 | XMS_ITS | Encounter Summary ---
Author Organization [employer] [facility] Address [address] [facility] 7t [place] [address] Care Team Providers Care Manager Desktop Name Role Phone Ventura Tavares MD Primary Care Provide r Encounter Details Date Type Department Care Team (Late Contact Info) Description 12/01/2022 Abstract [facility] MEDICINE [address] [place] [address] [phone] Ventura Tavares MD [address] [place] [address] [phone] Social History Tobacco Use Types Packs/Day Years [...] Department Care Team (Late Contact Info) Description 12/04/2024 10:15 AM EDT Office Visit [facility] MEDICINE [address] [place] [address] [phone] Ventura Tavares MD [address] [place] [address] [phone] documented as of this encounter Procedures Procedure Name Priority Date/Time Associated Diagnosis Comments HM COLONOSCOPY Routine 09/01/2015 documented in this encounter Results * Colonoscopy (09/01/2015) Colonoscopy Normal Normal 09/01/2015 Brittany Patel - 09/01/2015 11:54 AM EST Recommended 10 year follow up us Historical Provider [facility] Edited Result - Final documented in this encounter Visit Diagnoses Not on filedocumented in this encounter Care Teams Manager Desktop Relationship Specialty Start Date End Date Ventura Tavares MD [address] [place] [address] PCP - General Internal Medicine 03/11/14 documented as of this encounter
--- OUTSIDE RECORDS SUMMARY | 2024-09-05 11:26 | XMS_ITS | Encounter Summary ---
Author Organization [facility] Address [address] [place] [address] 7t [place] [address] Care Team Providers Care Impregnator Carbon Products Name Role Phone Ventura Tavares MD Primary Care Provide r Encounter Details Date Type Department Care Team (Late st Contact Info) Description 07/09/2022 [facility] Health Information Management [address] [place], [place] [phone] Ventura Tavares MD [address] [place], [place] [phone] Social History Tobacco Use Types Packs/Day Years [...] Description 12/04/2024 10:15 AM EDT Office Visit [facility] MEDICINE [address] [place], [place] [phone] Ventura Tavares MD [address] [place], [place] [phone] documented as of this encounter Procedures Procedure [...] (09/06/2022 10:34 AM EST) Color Urine Yellow [facility] Appearance Urine Clear [facility] PH 7.5 5.0 - 9.0 [facility] Glucose Urine UA 100(A) Negative mg/dL [facility] Urine Blood Negative Negative [facility] Specific [place] - Urine 1.020 1.005 - 1.025 [facility] Urine Protein 100 (2+)(A) Neg-Trace mg/dL [facility] Urine Ketones Negative Negative mg/dL [facility] Nitrite Urine Negative Negative [facility] Leukocyte Esterase Urine Negative Negative [facility] RBC Urine 0-2 0 - 2 /HPF [facility] Urine WBC 0-5 0 - 5 /HPF [facility] Urine Squamous Epithelial Cell 6-10 0 - 2 /HPF [facility] Urine Bacteria None Seen None Seen [facility] Hyaline Casts, Urine 0-2 0 - 2 /LPF [facility] 09/06/2022 10:3 4 AM EST 09/06/2022 10:38 AM EST [facility] - 09/06/2022 10:51 AM EST [id number], Clean Catch [facility] External Provider LAB URI NE ORDERABLES Final Result Performing Organization Address [facility] de Phone Number [facility] [address] [place] [address] [phone] * (ABNORMAL) Urinalysis with reflex microscopic (09/06/2022 10:34 AM EST) Color Urine Yellow [facility] Appearance Urine Clear [facility] PH 7.5 5.0 - 9.0 [facility] Glucose Urine UA 100(A) Negative mg/dL [facility] Urine Blood Negative Negative [facility] Specific [place] - Urine 1.020 1.005 - 1.025 [facility] Urine Protein 100 (2+)(A) Neg-Trace mg/dL [facility] Urine Ketones Negative Negative mg/dL [facility] Nitrite Urine Negative Negative [facility] Leukocyte Esterase Urine Negative Negative [facility] 09/06/2022 10:3 4 AM EST 09/06/2022 10:38 AM EST [facility] - 09/06/2022 10:45 AM EST [id number], Clean Catch [facility] External Provider LAB URI NE ORDERABLES Final Result Performing Organization Address [facility] Co de Phone Number [facility] [address] [place] [address] [phone] * (ABNORMAL) Comprehensive Metabolic Panel (09/06/2022 10:27 AM EST) Sodium 139 135 - 145 mmol/L [facility] Potassium 5.1 3.3 - 5.1 mmol/L [facility] Chloride 103 96 - 108 mmol/L [facility] Carbon Dioxide 29 22 - 29 mmol/L [facility] Anion Gap 12 12 - 20 [facility] Urea Nitrogen (BUN) 36(H) 9 - 16 mg/dL [facility] Creatinine, Serum 1.47(H) 0.5 - 1.4 mg/dL [facility] Creatinine Clr Calc Pharmacy 27.5 [facility] Comment:Provided height and weight: 134.62 cm,78.018 kg.eGFR (calculated from the MDRD study equation) and eCrCl(calculated from the Cockcroft-Gault equation) are based ondifferent parameters and may not yield comparable results.If eCrCl result is absurd, please check patient'sheight/weight. Estimated Glomerular Filt Rate 35 [facility] Comment:NOTE: For -Am erican individuals, multiply the result by 1.210.Chronic Kidney Disease: Estimated GFR < 60 mL/min/1.48h2Tinevp Kidney Disease: Estimated GFR < 15 mL/min/1.73m2 Glucose 190(H) 60 - 115 mg/dL [facility] Calcium 9.4 8.4 - 10.2 mg/dL [facility] Bilirubin, Total 0.6 0.0 - 1.0 mg/dL [facility] Aspartate Amino Transferase 18 5 - 31 U/L [facility] Alanine Aminotransferase 16 0 - 31 U/L [facility] Total Protein 6.9 6.5 - 8.0 g/dL [facility] Albumin Level 4.0 3.5 - 5.0 g/dL [facility] Alkaline Phosphatase 105 39 - 117 U/L [facility] 09/06/2022 10:2 7 AM EST 09/06/2022 10:31 AM EST us [facility] External Provider LAB BLO OD ORDERABLES Final Result [facility] [address] [place] [address] [phone] * (ABNORMAL) CBC auto differential (09/06/2022 10:27 AM EST) White Blood Count 6.5 4.8 - 10.8 X10*3/uL [facility] Red Blood Count 3.99(L) 4.20 - 5.50 X10*6/uL [facility] Hemoglobin 12.0 12.0 - 16.0 g/dl [facility] Hematocrit 36.2(L) 37.0 - 47.0 % [facility] Mean Corpuscular Volume 90.7 80.0 - 98.0 fL [facility] Mean Corpuscular Hemoglobin 30.1 27.0 - 33.0 pg [facility] Mean Corpuscular HGB Conc 33.1 31.0 - 35.0 g/dl [facility] Red Cell Distribution Width 11.6 11.0 - 16.0 % [facility] Platelet Count 194 160 - 400 X10*3/uL [facility] Mean Platelet Volume 10.6 9.4 - 12.3 fL [facility] Neutrophils Percent Auto 64.0 45 - 73 % [facility] Imm Gran Pct Auto 0.3 0.0 - 0.4 % [facility] Lymphocytes Percent Auto 22.6 20 - 40 % [facility] Monocytes Percent Auto 7.9 2 - 11 % [facility] Eosinophils Percent Auto 4.7(H) 0 - 4 % [facility] Basophils Percent Auto 0.5 0 - 2 % [facility] NRBC Pct Auto 0.0 0.0 - 0.2 /100WBC [facility] Neutrophils Absolute Auto 4.1 2.0 - 8.3 x10*3/uL [facility] Imm Gran Abs Auto 0.02 0.00 - 0.03 X10*3/uL [facility] Lymphocytes Absolute Auto 1.5 1.2 - 4.9 X10*3/uL [facility] Monocytes Absolute Auto 0.5 0.1 - 1.2 X10*3/uL [facility] Eosinophils Absolute Auto 0.3 0.0 - 0.4 X10*3/uL [facility] Basophils Absolute Auto 0.0 0.0 - 0.2 X10*3/uL [facility] NRBC Abs Auto 0.000 0.0 - 0.012 X10*3/uL [facility] 09/06/2022 10:2 7 AM EST 09/06/2022 10:31 AM EST [facility] External Provider LAB BLO OD ORDERABLES Final Result Performing Organization Address [facility] Phone Number [facility] [address] [place] [phone] * Calcium (08/03/2022 8:15 AM EST) Calcium 9.2 8.4 - 10.2 mg/dL [facility] 08/03/2022 8:15 AM EST 08/03/2022 10:30 AM EST [facility] External Provider LAB BLO OD ORDERABLES Final Result Performing Organization Address [facility] Number [facility] [address] [place] [phone] * (ABNORMAL) Creatinine, Serum (08/03/2022 8:15 AM EST) Creatinine, Serum 1.54(H) 0.5 - 1.4 mg/dL [facility] Estimated Glomerular Filt Rate 33 [facility] Comment:NOTE: For -Am erican individuals, multiply the result by 1.210.Chronic Kidney Disease: Estimated GFR < 60 mL/min/1.32j7Tyyokh Kidney Disease: Estimated GFR < 15 mL/min/1.73m2 08/03/2022 8:15 AM EST 08/03/2022 10:30 AM EST [facility] External Provider LAB BLO OD ORDERABLES Final Result Performing Organization Address [facility] Co de Phone Number [facility] [address] [place] [phone] * (ABNORMAL) BUN (Blood Urea Nitrogen) (08/03/2022 8:15 AM EST) Urea Nitrogen (BUN) 39(H) 9 - 16 mg/dL [facility] 08/03/2022 8:15 AM EST 08/03/2022 10:30 AM EST [facility] External Provider LAB BLO OD ORDERABLES Final Result Performing Organization Address City/[facility] Co de Phone Number [facility] [address] [place] [phone] [phone] * (ABNORMAL) Electrolyte Panel (08/03/2022 8:15 AM EST) Sodium 140 135 - 145 mmol/L [facility] Potassium 5.5(H) 3.3 - 5.1 mmol/L [facility] Chloride 106 96 - 108 mmol/L [facility] Carbon Dioxide 28 22 - 29 mmol/L [facility] Anion Gap 12 12 - 20 [facility] 08/03/2022 8:15 AM EST 08/03/2022 10:30 AM EST [facility] External Provider LAB BLO OD ORDERABLES Final Result Performing Organization Address [facility] de Phone Number [facility] [address] [place] [address] [phone] documented in this encounter Visit Diagnoses Not on filedocumented in this encounter Care Teams [employer]ator [employer] Relationship Specialty Start Date End Date Ventura Tavares MD [address] [place] [phone] PCP - General Internal Medicine 03/11/14 documented as of this encounter
--- OUTSIDE RECORDS SUMMARY | 2024-09-05 11:26 | XMS_ITS | Clinical Summary ---
Author Organization [facility] Address [address] [place] [address] [address] [place] JOSLYN [phone] Phone Care Team Providers Care Calculus Teacher Name Role Phone Ventura Schulz MD Primary [...] & Plan: Improving Pt seen at our [facility] by Dr Demarcus Larry, [place] negative for [...] patient's age to complete this topic Insurance [facility] M[facility] ([id number]) MAIZN SINGER [id number] [facility] ([id number]) MAZIN SINGER [id number] Care Teams Calculus Teacher Relationship Specialty Start Date End Date Ventura Schulz MD [address] [place] [phone] PCP - General 08/04/20
--- OUTSIDE RECORDS SUMMARY | 2024-09-05 11:26 | XMS_ITS | Encounter Summary ---
Author Organization [employer] [facility] Address [address] [facility] 7t [place] [address] Care Team Providers Care Emergency Room Nurse Name Role Phone Ventura Tavares MD Primary Care Provide r Reason for Visit * Reason Onset Date Comments ER Follow-up 10/25/2022 Encounter Details Date Type Department Care Team ([facility] st Contact Info) Description 10/25/2022 Telephone [facility] MEDICINE [address] [place] [address] Ventura Tavares MD [address] [place], [place] [phone] ER Follow-up Social History Tobacco Use Types [...] to report ED visit on 10/25/22 at [facility]. Diagnosed with fall. Patient advised will forward to team nurse for follow up. documented in this encounter Plan of Treatment Upcoming Encounters Date Type Department Care Team (Late st Contact Info) Description 12/04/2024 10:15 AM EDT Office Visit [facility] MEDICINE [address] [place] [address] Ventura Tavares MD [address] [place] [address] documented as of this encounter Visit Diagnoses Not on filedocumented in this encounter Care Teams Emergency Room Nurse Relationship Specialty Start Date End Date [place] [address] PCP - General Internal Medicine 03/11/14 documented as of this encounter
--- OUTSIDE RECORDS SUMMARY | 2024-09-05 11:26 | XMS_ITS | Encounter Summary ---
Author Organization [employer] Address [address] [place] [address] Care Team Providers Care Peoplesoft Developer Name Role Phone Ventura Tavares MD Primary Care Provide r Encounter Details Date Type Department Care Team (Latest Contact Info) Description 09/04/2024 Travel Social History Tobacco Use Types Packs/Day Years [...] Description 12/04/2024 10:15 AM EDT Office Visit [facility] MEDICINE [address] [place] [address] Ventura Tavares MD [address] [place] [address] documented as of this encounter Visit Diagnoses Not on filedocumented in this encounter Additional Health Concerns Assessment Noted Time PHQ-9 Depression Total Score: 0 05/15/20 24 10:57 AM EDT documented as of this encounter Care Teams Peoplesoft Developer Relationship Specialty Start Date End Date Ventura Tavares MD [address] [place] [address] PCP - General Internal Medicine 03/11/14 documented as of this encounter
--- OUTSIDE RECORDS SUMMARY | 2024-09-05 11:26 | XMS_ITS | Encounter Summary ---
Author Organization [employer] Address [address] [place] [address] Care Team Providers Care Cookee Name Role Phone Ventura Tavares MD Primary Care Provide r Reason for Visit * Reason Comments Diabetes Encounter Details Date Type Department Care Team (Latest Contact Info) Description 09/04/2024 2:15 PM EST Office Visit [facility] MEDICINE [address] [place] [address] Ventura Tavares MD [address] [place], [place] [phone] Hyperkalemia (Primary Dx); Type 2 diabetes mellitus with stage 3a chronic kidney disease, with long-term current use of insulin (CMS/HCC); LAKE (dyspnea on exertion); Primary hypertension; Stage 3a chronic kidney disease (CMS/HCC); Preventative health care; Mixed hyperlipidemia; 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 (CMS/HCC); Depressive disorder; Lactose intolerance Social History Tobacco Use Types Packs/Day Years [...] AM EDT documented as of this encounter Last Filed Vital Signs Vital Sign Reading [...] Mass Index 42.3 09/04/2024 1:55 PM EST documented in this encounter Progress Notes * Ventura Maldonado MD - 09/04/2024 2:15 PM EST SUBJECTIVE Sindi Colin is a 73 y.o. female who presents for Diabetes. Diabetes She presents for her follow-up diabetic visit. She has type 2 diabetes mellitus. Pertinent negatives for hypoglycemia include no headaches. Pertinent negatives for diabetes include no chest pain. Review of Systems Constitutional: Negative for fever. HENT: Negative for sore throat. Respiratory: Negative for cough and shortness of breath. Cardiovascular: Negative for chest pain. Gastrointestinal: Negative for abdominal pain. Neurological: Negative for headaches. Allergies Allergen Reactions Lisinopril Cough Metformin Diarrhea and Unknown OBJECTIVE Vitals: 09/04/24 1355 09/04/24 1412 BP: (!) 161/60 (!) 140/80 BP Location: Right arm Left arm Patient Position: Sitting Sitting BP Cuff Size: Large adult Pulse: 60 Resp: 20 Temp: 96.8 ??F (36 ??C) TempSrc: Temporal SpO2: 95% Weight: 169 lb (76.7 kg) Height: 4' 5 (1.346 m) Physical Exam Vitals reviewed. Constitutional: Appearance: Normal appearance. HENT: Head: Normocephalic and atraumatic. Right Ear: External ear normal. Left Ear: External ear normal. Nose: Nose normal. Mouth/Throat: Mouth: Mucous membranes are moist. Eyes: Conjunctiva/sclera: Conjunctivae normal. Cardiovascular: Rate and Rhythm: Normal rate and regular rhythm. Pulmonary: Effort: Pulmonary effort is normal. Breath sounds: Normal breath sounds. Skin: General: Skin is warm. Neurological: Mental Status: She is alert. Mental status is at baseline. Assessment/Plan Problem List Items Addressed This Visit Type 2 diabetes mellitus ([facility]) Patient is here for a follow up [...] Plan: As per Endocrinology Eye exam with Commissions Manager Lianet Vicente diagnosed with both eyes. Last seen 12/06/2023 Pt does not adhere to a diabetic diet, does not want to go any higher on her insulin dose as it wasrecommended by her [employer] Library Clerk. Pt advised to Adhere to diabetic diet 3 months f/u Relevant Orders POCT Glucose (Completed) POCT HGB A1C (Completed) Hyperkalemia - Primary Seen in the ER Follows with Nephrology, last seen 05/28/2024 LAKE (dyspnea on exertion) Seen initially by Dr Demarcus Laryr with c/o LE edema and elevated BNP, CXR was unermarkable. Dr. Larry spoke with Dr. Cosme's office (her labor/excavator), pt was seen 12/27/2023. We notified the office that her embedded developer Dr. Silverio prescribes Lasix 20 mg 2 tabs po daily. Patient followed by Dr Cosme Laundry Aid, Previous Stress Test and ECHO unremarkable. Last seen 07/03/2024. Hypertension Pt here for a f/u BP controlled [...] about medication compliance, counseled about weight loss. Relevant Orders Basic Metabolic Panel Chronic kidney disease (CKD), stage III (moderate) (CMS/HCC) Under the care of Nephrology Dr Ji seen in 06/25/2024 Preventative health care Mammogram: Abnormal 05/05/2022 Biopsy 06/09/2022 Negative for malignancy repeat 10/24/2023 Normal Pap Smear: NL: 12/16/2005 s/p KATHARINA 20 years ago, no need to continue Colonoscopy: 09/01/2015 Dr Zamarripa Nl 10 year f/u Hyperlipidemia Last Lab Results Component Value Date TRIG 50 09/30/2023 TRIG 64 12/31/2022 CHOL 143 09/30/2023 LDLCHOLCAL 64 09/30/2023 HDL 69 09/30/2023 Will repeat Relevant Orders Lipid Panel, Standard 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 (CMS/HCC) Last seen by Opthalmology 12/06/2023 Under the care of retina specialist Depressive disorder Seeing Trinh Su at [facility] Lactose intolerance Patient reports lactose intolerance Would benefit from drinking Lactaid documented in this encounter Miscellaneous Notes * Assessment & Plan Note - Ventura Maldonado MD - 09/04/2024 2:15 PM EST Associated Problem(s): Lactose intolerance Patient reports lactose intolerance Would benefit from drinking Lactaid * Assessment & Plan Note - Ventura Maldonado MD - 09/04/2024 2:14 PM EST Associated Problem(s): Depressive disorder Seeing Trinh Su at [facility] * Assessment & Plan Note - Ventura Maldonado MD - 09/04/2024 2:13 PM EST Associated Problem(s): 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 (CMS/HCC) Last seen by Opthalmology 12/06/2023 Under the care of retina specialist * Assessment & Plan Note - Ventura Maldonado MD - 09/04/2024 2:07 PM EST Associated Problem(s): Type 2 diabetes mellitus (CMS/HCC) Patient is here for a follow up [...] Plan: As per Endocrinology Eye exam with Commissions Manager [facility] Cinthia diagnosed with both eyes. Last seen 12/06/2023 Pt does not adhere to a diabetic diet, does not want to go any higher on her insulin dose as it wasrecommended by her [employer] Library Clerk. Pt advised to Adhere to diabetic diet 3 months f/u * Assessment & Plan Note - Ventura Maldonado MD - 09/04/2024 2:05 PM EST Associated Problem(s): Hyperlipidemia Last Lab Results Component Value Date TRIG 50 09/30/2023 TRIG 64 12/31/2022 CHOL 143 09/30/2023 LDLCHOLCAL 64 09/30/2023 HDL 69 09/30/2023 Will repeat * Assessment & Plan Note - Ventura Maldonado MD - 09/04/2024 2:05 PM EST Associated Problem(s): Preventative health care Mammogram: Abnormal 05/05/2022 Biopsy 06/09/2022 Negative for malignancy repeat 10/24/2023 Normal Pap Smear: NL: 12/16/2005 s/p KATHARINA 20 years ago, no need to continue Colonoscopy: 09/01/2015 Dr Zamarripa Nl 10 year f/u * Assessment & Plan Note - Ventura Maldonado MD - 09/04/2024 2:04 PM EST Associated Problem(s): Chronic kidney disease (CKD), stage III (moderate) ([facility]) Under the care of Nephrology Dr Ji seen in 06/25/2024 * Assessment & Plan Note - Ventura Maldonado MD - 09/04/2024 2:04 PM EST Associated Problem(s): Hypertension Pt here for a f/u BP controlled [...] about medication compliance, counseled about weight loss. * Assessment & Plan Note - Ventura Maldonado MD - 09/04/2024 2:02 PM EST Associated Problem(s): LAKE (dyspnea on exertion) Seen initially by Dr Demarcus Larry with c/o LE edema and elevated BNP, CXR was unermarkable. Dr. Larry spoke with Dr. Cosme's office (her labor/excavator), pt was seen 12/27/2023. We notified the office that her embedded developer Dr. Silverio prescribes Lasix 20 mg 2 tabs po daily. Patient followed by Dr Cosme Laundry Aid, Previous Stress Test and ECHO unremarkable. Last seen 07/03/2024. * Assessment & Plan Note - Ventura Maldonado MD - 09/04/2024 1:58 PM EST Associated Problem(s): Hyperkalemia Seen in the ER Follows with Nephrology, last seen 05/28/2024 documented in this encounter Plan of Treatment Upcoming Encounters Date Type Department Care Team (Late st Contact Info) Description 12/04/2024 10:15 AM EDT Office Visit [facility] MEDICINE [address] [place] [address] Ventura Tavares MD [address] [place], [place] [phone] Scheduled Orders Name Type Priority Associated Diagnoses Orde r Schedule Lipid Panel, Standard Lab Routine Mixed hyperlipidemia Ordered: 09/04/2024 Basic Metabolic Panel Lab Routine Primary hypertension Ordered: 09/04/2024 documented as of this encounter Procedures Procedure Name Priority Date/Time Associated Diagnosis Comments POCT GLYCATED HEMOGLOBIN, TOTAL Routine 09/04/2024 2:05 PM EST Type 2 diabetes mellitus with stage 3a chronic kidney disease, with long-term current use of insulin ([facility]) POCT GLUCOSE Routine 09/04/2024 2:01 PM EST Type 2 diabetes mellitus with stage 3a chronic kidney disease, with long-term current use of insulin ([facility]) documented in this encounter Results * (ABNORMAL) POCT HGB A1C (09/04/2024 2:05 PM EST) Hemoglobin A1C 9.0(A) 4.0 - 6.0 % QC Media Lot # [id number] Lot# Expiration Date Blood 09/04/2024 2:05 PM EST us Ventura Maldonado MD POINT OF CARE TEST EN TER/EDIT ORDERABLES Final Result * (ABNORMAL) POCT Glucose (09/04/2024 2:01 PM EST) Pathologist [facility] Glucose Blood, POC 283(A) 60 - 200 mg/dL QC Media Lot # [id number] Lot# Expiration Date Blood Capillary blood specimen / Unknown 09/04/2024 2:01 PM EST us Ventura Maldonado MD POINT OF CARE TEST EN TER/EDIT ORDERABLES Final Result documented in this encounter Visit Diagnoses Diagnosis Hyperkalemia- Primary Hyperpotassemia Type 2 diabetes mellitus with stage 3a chronic kidney disease, with long-term current use of insulin ([facility]) LAKE (dyspnea on exertion) Other dyspnea and respiratory abnormality Primary hypertension Unspecified essential hypertension Stage 3a chronic kidney disease ([facility]) Preventative health care Routine general medical examination at a health care facility Mixed hyperlipidemia 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 ([facility]) Depressive disorder Depressive disorder, not elsewhere classified Lactose intolerance Intestinal disaccharidase deficiencies and disaccharide malabsorption documented in this encounter Additional Health Concerns Assessment Noted Time PHQ-9 Depression Total Score: 0 05/15/20 24 10:57 AM EDT documented as of this encounter Care Teams [place]e Relationship Specialty Start Date End Date Ventura Tavares MD [address] [place] [address] PCP - General Internal Medicine 03/11/14 documented as of this encounter
--- OUTSIDE RECORDS SUMMARY | 2024-09-05 11:27 | XMS_ITS | Encounter Summary ---
Author Organization [employer] Address [address] [place] [address] Care Team Providers Care Line Therapist Name Role Phone Ventura Tavares MD Primary Care Provide r Encounter Details Date Type Department Care Team ([facility] st Contact Info) Description 01/04/2023 Orders Only [facility] WALK-IN CENTER [address] [place] [address] Aime Bland MD [address] [place] [address] Dyspnea, unspecified type (Primary Dx) Social History [...] Description 12/04/2024 10:15 AM EDT Office Visit [facility] MEDICINE [address] [place] [address] Ventura Tavares MD [address] [place] [address] Scheduled Orders Name Type Priority Associated Diagnoses [...] PM EDT Narrative 01/04/2023 2:57 PM EDT ?[facility] ?[address] ?[place] [address] ?XRay Report ? Signed ? Patient: Sindi Obrien ?MR#: [id number] ?? [id number] ? : 1950 ?Acct:[id number] ? Age/Sex: 72 / F ?ADM Date: 01/04/23 ? Loc: HO.HHCX ? Attending Dr: Aime Bland MD ? Ordering Physician: AIME BLAND MD ?? Date of Service: 01/04/23 ?? Procedure(s): XR chest 2V ?? Accession Number(s): [id number] ? cc: AIME BLAND MD ? EXAMINATION: [...] Giancarlo S MD Earnestine in OV> ?01/04/23 ? DD/ 19 ? TD/TT: ? Cardiac Cath Lab Radiology Technologist: HERSON ? Procedure Note Donotniainterpreter, Image - 01/19/2023 [facility] [address] [place] [address] XRay Report Signed Patient: Sindi ObrienMR#: [id number] : 2Acct:[id number] Age/Sex: 72 / FADM Date: 01/04/23 Loc: HO.HHCX Attending Dr: Aime Bland MD Ordering Physician: AIME BLAND MD Date of Service: 01/04/23 Procedure(s): XR chest 2V Accession Number(s): [id number] cc: AIME BLAND MD EXAMINATION: XR CHEST [...] in OV> 01/04/23 1454 DD/ 1420 TD/TT: Cardiac Cath Lab Radiology Technologist: HERSON [facility] External Provider IMG XR PROCEDURES Final Result documented in this encounter Visit Diagnoses Diagnosis Dyspnea, unspecified type- Primary documented in this encounter Additional Health Concerns Assessment Noted Time PHQ-9 Depression Total Score: 12 023 10:55 AM EDT documented as of this encounter Care Teams Line Therapist Relationship Specialty Start Date End Date Ventura Tavares MD [address] [place] [address] PCP - General Internal Medicine 03/11/14 documented as of this encounter
--- OUTSIDE RECORDS SUMMARY | 2024-09-05 11:27 | XMS_ITS | Encounter Summary ---
Author Organization [employer] Address [address] [place] [address] Care Team Providers Care Qa Tester Name Role Phone Ventura Tavares MD Primary Care Provide r Encounter Details Date Type Department Care Team ([facility] st Contact Info) Description 07/05/2023 Telephone [facility] MEDICINE [address] [place], [place] [phone] Ventura Tavares MD [address] [place] [address] Social History Tobacco Use Types Packs/Day Years [...] 07/05/2023 2:11 PM EST Tc from farzad ([employer]) with [employer] calling to advise provider, a home assessment was done on behalf of [employer]and pt A1C came out to be 10.8 Any questions, contact Farzad at [phone] documented in this encounter Plan of Treatment Upcoming Encounters Date Type Department Care Team (Late st Contact Info) Description 12/04/2024 10:15 AM EDT Office Visit [facility] MEDICINE [address] [place], [place] [phone] Ventura Tavares MD [address] [place] [address] documented as of this encounter Visit Diagnoses Not on filedocumented in this encounter Additional Health Concerns Assessment Noted Time PHQ-9 Depression Total Score: 12 023 10:55 AM EDT documented as of this encounter Care Teams Qa Tester Relationship Specialty Start Date End Date Ventura Tavares MD [address] [place], [place] [phone] PCP - General Internal Medicine 03/11/14 documented as of this encounter
--- OUTSIDE RECORDS SUMMARY | 2024-09-05 11:27 | XMS_ITS | Encounter Summary ---
Author Organization [employer] Address [address] [facility] [address] [facility] 7t [place] [address] Care Team Providers Care Department Specialist Name Role Phone Ventura Tavares MD Primary Care Provide r Encounter Details Date Type Department Care Team ([facility] Contact Info) Description 03/02/2023 Orders Only [facility] MED & PEDS [address] [place] [address] Terra Hannon LPN Social History Tobacco Use [...] Office Visit [facility] MEDICINE [address] [place], [place] [phone] Ventura Tavares MD [address] [place], [place] [phone] documented as of this encounter Visit Diagnoses Not on filedocumented in this encounter Additional Health Concerns Assessment Noted Time PHQ-9 Depression Total Score: 12 023 10:55 AM EDT documented as of this encounter Care Teams Department Specialist Relationship Specialty Start Date End Date Ventura Tavares MD [address] [place] [address] PCP - General Internal Medicine 03/11/14 documented as of this encounter
--- OUTSIDE RECORDS SUMMARY | 2024-09-05 11:27 | XMS_ITS | Encounter Summary ---
Author Organization [employer] [facility] Address [address] [place] [address] Care Team Providers Care Cane Loader Name Role Phone Ventura Tavares MD Primary Care Provide r Reason for Visit * Reason Comments Med Refill Encounter Details Date Type Department Care Team ([facility] Contact Info) Description 02/24/2023 Refill [facility] MEDICINE [address] [place] [phone] Ventura Tavares MD [address] [place] [phone] Pain Social History Tobacco Use Types Packs/Day [...] Upcoming Encounters Date Type Department Care Team ([facility] Contact Info) Description 12/04/2024 10:15 AM EDT Office Visit [facility] MEDICINE [address] [place] [phone] Ventura Tavares MD [address] [place] [address] documented as of this encounter Visit Diagnoses Diagnosis Pain Generalized pain documented in this encounter Additional Health Concerns Assessment Noted Time PHQ-9 Depression Total Score: 12 023 10:55 AM EDT documented as of this encounter Care Teams Cane Loader Relationship Specialty Start Date End Date Ventura Tavares MD [address] [place] [address] PCP - General Internal Medicine 03/11/14 documented as of this encounter
--- OUTSIDE RECORDS SUMMARY | 2024-09-05 11:27 | XMS_ITS | Encounter Summary ---
Author Organization [email or web address] [facility] Address [address] [facility] 7t [place] [address] Care Team Providers Care Picture Painter Name Role Phone Ventura Tavares MD Primary Care Provide r Encounter Details Date Type Department Care Team ([facility] Contact Info) Description 04/07/2023 Telephone [facility] MEDICINE [address] [place] [phone] Ventura Tavares MD [address] [place] [phone] Social History Tobacco Use Types Packs/Day Years [...] Upcoming Encounters Date Type Department Care Team ([facility] Contact Info) Description 12/04/2024 10:15 AM EDT Office Visit [facility] MEDICINE [address] [place] [phone] Ventura Tavares MD [address] [place] [address] documented as of this encounter Visit Diagnoses Not on filedocumented in this encounter Additional Health Concerns Assessment Noted Time PHQ-9 Depression Total Score: 12 12/21/ 023 10:55 AM EDT documented as of this encounter Care Teams Picture Painter Relationship Specialty Start Date End Date Ventura Tavares MD [address] [place] [address] PCP - General Internal Medicine 03/11/14 documented as of this encounter
== END 2024-09-05 10:14 | disposition home or self-care (01) ==
PROVIDERS: PCP Internal Medicine; Visit Provider Internal Medicine Nephrology
DX: E11.22 Type 2 diabetes mellitus with diabetic chronic kidney disease (principal); N18.30 Chronic kidney disease, stage 3 unspecified; E87.5 Hyperkalemia; I10 Essential (primary) hypertension
CPT/HCPCS: 99214

== ENCOUNTER → 2024-09-05 09:51 | Outpatient (BNVA) | payer OTHER, SELFPAY | PROVIDERS: PCP Internal Medicine; Visit Provider Internal Medicine Nephrology | DX: E11.22 Type 2 diabetes mellitus with diabetic chronic kidney disease (principal); I12.9 Hypertensive chronic kidney disease with stage 1 through stage 4 chronic kidney disease, or unspecified chronic kidney disease; N18.30 Chronic kidney disease, stage 3 unspecified; E87.5 Hyperkalemia | CPT/HCPCS: 99212 ==

== ENCOUNTER 2024-09-21 12:55 | Outpatient (AMB) | payer OTHER, SELFPAY ==
[2024-09-21 12:58] VITALS: BP 144/60; PULSE 62; O2SAT 98; BMI 42.9
--- NOTE | 2024-09-21 12:58 | MHC.OFFVIS ---
Vital Signs 09/21/24 12:58 Height 4 ft 5 in Weight 171 lb 4.787 oz BMI 42.9 BP 144/60 H Blood Pressure Location Lt brachial Position Sitting Pulse 62 Pulse Source Pulse Oximeter Pulse Oximetry (%) 98 Oxygen Delivery Method Room Air Intake Visit Reasons: Type 2 DM Intake Note: Patient present today for Type 2 Diabetes Mellitus Last Diabetic eye exam: 06/2024 Last Podiatry Visit: 07/2024 Random Glucose: 142 mg/dl HgA1C: 9.5% Insurance Underwriter Required: Yes Insurance Underwriter Language: Infrastructure Administrator Services: Insurance Underwriter Offered & Declined Accompanied by: Daughter Allergies metformin [From GLUCOPHAGE] Adverse Reaction (Unknown, Verified 09/21/24 13:05) DIARRHEA Medication List - Last Reconciled 09/21/24 by Suyapa Best PA-C acetaminophen (Tylenol Extra Strength) 1,000 mg (2 x 500 mg) PO QID PRN aspirin 81 mg PO DAILY atorvastatin 40 mg PO BEDTIME blood sugar diagnostic (FreeStyle Lite Strips) As directed three times a day blood-glucose meter,continuous (FreeStyle Blake 3 [place]) Use daily As directed to monitor type 2 diabetes blood-glucose meter,continuous (FreeStyle Blake 3 [place]) As directed blood-glucose sensor (FreeStyle Blake 3 Sensor device) Apply every 14 days As directed empagliflozin (Jardiance) 10 mg PO DAILY furosemide 40 mg (2 x 20 mg) PO DAILY gabapentin 300 mg PO BEDTIME hydralazine 25 mg PO BID insulin glargine 25 units (0.25 mL) subcut BEDTIME 90 days lancets (TRUEplus Lancets) As directed 3x/day metoprolol tartrate 25 mg PO BID Novolog FlexPen U-100 Insulin (insulin aspart U-100) 5 units (0.05 mL) subcut TID 90 days NS pen needle, diabetic (BD Kelly 2nd Gen Pen Needle) 5 times a day sodium polystyrene sulfonate 30 grams PO .once a week HPI HPI Type 2 DM: Details: Patient is a 73-year-old female with a significant past medical history of CKD, peripheral neuropathy, PB, hypertension, type 2 diabetes, insulin-dependent, prior CVA presenting today for follow-up regarding her diabetes. Daughter here for translation. Endo: Her last A1c was 8 and today it is 9.5. She is supposed to be on Lantus 30 units and NovoLog 10 units t.i.d., and was recently started on jardiance 10 mg. -she only uses lantus 18 units and novolog 10 units. She says that she is worried about hypoglycemia. She has not had any actual low blood sugars. -she is interested in restarting Trulicity. She did not have any adverse effects with this just took it a couple times and did not feel like it did much. -she does notice when she uses the 22 units of the NovoLog her sugars drop quickly so she does not always take it. -mounjaro caused diarrhea so she discontinued, trulicity was ineffective, ozempic did not tolerate. Refuses jardiance (she does not know why just refuses). CGM- Her usage is 89 %, average glucose 218, glucose variability 38.2%, G mi 8.5. Very high 31%, high 32%, in range 37%,, no low blood sugars. - She appears to be high between 12:00 and 21:00. CV: Blood pressure today in the office is 144/60. She is currently on metoprolol 25 mg b.i.d., hydralazine 25 mg twice a day, furosemide 40 mg daily. cholesterol is controlled with atorvastatin 40 mg. Last LDL was 64. She follows Cardiology and Nephrology. [facility] Medical History Snoring Dyspnea on exertion PB (obstructive sleep apnea) Hypoxemia Breast calcification, right Obesity due to excess calories Peripheral nerve facial nerve paralysis History of CVA (cerebrovascular accident) GERD (gastroesophageal reflux disease) Asthma Morbid obesity Hypertension CKD stage 3 due to type 2 diabetes mellitus prison (current) use of insulin Diabetic nephropathy associated with type 2 diabetes mellitus Dyslipidemia Diabetes type 2, uncontrolled Surgical History Hx of tubal ligation Hx of bilateral cataract extraction Hx of hysterectomy History of appendectomy Family History Father Cancer Mother Diabetes mellitus Social History Household Members: None Housing: Apartment Do you presently have visiting nurse or other home services: Yes Alcohol intake: never Patient Tobacco Use Status: Never used Tobacco Second Hand Smoke Exposure: No Advance Directives Date on File: 11/26/20 service: No Current occupational status: disabled Current occupation: rt handed Female Reproductive History Menstrual Age of Menarche: 12 Physical Exam Vital Signs: Last Vital Signs Pulse 62 09/21/24 12:58 BP 144/60 H 09/21/24 12:58 Pulse Ox 98 09/21/24 12:58 Oxygen Delivery Method Room Air 09/21/24 12:58 BMI result Body Mass Index 42.9 Const Orientation/consciousness: patient oriented x3 HEENT Ears: hearing grossly normal bilaterally Neck Thyroid: Thyroid normal Lymphatic: no lymphadenopathy noted Resp Auscultation: clear to auscultation bilaterally Cardio Rate: regular rate Rhythm: regular rhythm Heart sounds: S1 normal heart sound present and S2 normal heart sound present Skin General skin exam: no rashes or lesions noted Neuro General: patient oriented x3, gait normal and no focal motor deficits Results AMB Hemoglobin A1c AMB Hemoglobin A1c 9.5 % Last Edit by JACKLYN Johnson on 09/21/24 13:21 Results Reviewed Results Reviewed: Laboratory Last Values Glucose (Clinic) 142 mg/dL (60-115) H 09/21/24 13:07 Laboratory Tests 06/22/24 09/03/24 11:11 10:05 Sodium 141 Potassium 5.3 H Chloride 110 H Carbon Dioxide 26 Anion Gap 10 L BUN 41 H Creatinine 1.64 H Estimated GFR 31 Random Glucose 151 H Fasting Glucose 151 H Hemoglobin A1c % 8.0 H AST 27 ALT 33 H Alkaline Phosphatase 119 H Assessment & Plan Assessment & Plan (1) Diabetic nephropathy associated with type 2 diabetes mellitus: Code(s): E11.21 - Type 2 diabetes mellitus with diabetic nephropathy Category: Medical Plan: Advised to increase Lantus to 25 units. Encouraged consistency with NovoLog 5 units with meals. She will let me know if she develops any hypoglycemia. I did discuss with her that I do not suspect this will be the case given her elevated blood sugars. I will also restart Trulicity 0.75 mg once a week. Continue Jardiance. Return for a short term follow up in 2-3 weeks. Sooner if needed. We discussed the importance of compliance at length. We did discuss complications associated with diabetes including worsening kidney disease, infections, blindness, amputations, heart attacks and strokes. (2) prison (current) use of insulin: Code(s): Z79.4 - roasterman (current) use of insulin Category: Medical Plan: As above. (3) Hypertension: Code(s): I10 - Essential (primary) hypertension Category: Medical Qualifiers: Hypertension type: primary hypertension Qualified Code(s): I10 - Essential (primary) hypertension Plan: Discussed the importance compliance of her regimen, managing diet. Continue current regimen. (4) CKD stage 3 due to type 2 diabetes mellitus: Code(s): E11.22 - Type 2 diabetes mellitus with diabetic chronic kidney disease; N18.30 - Chronic kidney disease, stage 3 unspecified Category: Medical Plan: As above. Following with Nephrology and recently started on Jardiance. (5) Morbid obesity with BMI of 40.0-44.9, adult: Code(s): E66.01 - Morbid (severe) obesity due to excess calories; Z68.41 - Body mass index [BMI] 40.0-44.9, adult Category: Medical Plan: We will start on Trulicity and we did discuss the possibilities of appetite suppression. I have encouraged her to watch her diet closely. I have encouraged reduction of carbohydrate and sugar intake. Orders: Orders AMB Hemoglobin A1c Today E11.65 - Type 2 diabetes mellitus with hyperglycemia, Z13.9 - Encounter for screening, unspecified Medications: New dulaglutide (Trulicity) 0.75 mg (0.5 mL) subcut QWEEK 2 mL 3RF Changed From Novolog FlexPen U-100 Insulin (insulin aspart U-100) with meals 10 units (0.1 mL) subcut TID 90 days 27 mL 2RF NS E11.65 - Type 2 diabetes mellitus with hyperglycemia To Novolog FlexPen U-100 Insulin (insulin aspart U-100) with meals 5 units (0.05 mL) subcut TID 90 days 15 mL 2RF NS E11.65 - Type 2 diabetes mellitus with hyperglycemia From insulin glargine 30 units (0.3 mL) subcut BEDTIME 90 days 27 mL 1RF E11.65 - Type 2 diabetes mellitus with hyperglycemia To insulin glargine 25 units (0.25 mL) subcut BEDTIME 90 days 22.5 mL 1RF E11.65 - Type 2 diabetes mellitus with hyperglycemia Patient Instructions: increase lantus to 25 units start novolog 5 units with meals continue jardiance start trulicity again Coding Level of Care Code Est Pt Level 4 (76149) Complex EM visit Add On G2211 Diagnoses Diabetic nephropathy associated with type 2 diabetes mellitus E11.21 roasterman (current) use of insulin Z79.4 Primary hypertension I10 Hypertension type: primary hypertension CKD stage 3 due to type 2 diabetes mellitus E11.22; N18.30 Morbid obesity with BMI of 40.0-44.9, adult E66.01; Z68.41
[2024-09-21 13:11] LABS: Glucose, Whole Blood 142 mg/dL (60-115)
--- OUTSIDE RECORDS SUMMARY | 2024-09-21 14:59 | XMS_ITS | Encounter Summary ---
Author Organization [facility] [facility] Address [address] [facility] 7t [place] [address] Care Team Providers Care Pharmacy Technician Program Director Name Role Phone Ventura Tavares MD Primary Care Provide r Encounter Details Date Type Department Care Team ([facility] Contact Info) Description 04/07/2023 Telephone [facility] MEDICINE [address] [place] [address] [phone] Ventura Tavares MD [address] [place] [address] [phone] Social History Tobacco Use Types Packs/Day Years [...] Upcoming Encounters Date Type Department Care Team ([facility] Contact Info) Description 12/04/2024 10:15 AM EDT Office Visit [facility] MEDICINE [address] [place] [address] [phone] Ventura Tavares MD [address] [place] [address] documented as of this encounter Visit Diagnoses Not on filedocumented in this encounter Additional Health Concerns Assessment Noted Time PHQ-9 Depression Total Score: 12 12/21/ 023 10:55 AM EDT documented as of this encounter Care Teams Pharmacy Technician Program Director Relationship Specialty Start Date End Date Ventura Tavares MD [address] [place] [address] PCP - General Internal Medicine 03/11/14 documented as of this encounter
--- OUTSIDE RECORDS SUMMARY | 2024-09-21 14:59 | XMS_ITS | Encounter Summary ---
Author Organization [employer] [facility] Address [address] [facility] 7t [place] [address] Care Team Providers Care Locomotive Engineer Name Role Phone Ventura Tavares MD Primary Care Provide r Reason for Visit * Reason Onset Date Comments ER Follow-up 10/25/2022 Encounter Details Date Type Department Care Team ([facility] st Contact Info) Description 10/25/2022 Telephone [facility] MEDICINE [address] [place] [address] Ventura Tavares MD [address] [place], [place] [phone] ER Follow-up Social History Tobacco Use Types [...] to report ED visit on 10/25/22 at [facility]. Diagnosed with fall. Patient advised will forward to team nurse for follow up. documented in this encounter Plan of Treatment Upcoming Encounters Date Type Department Care Team (Late st Contact Info) Description 12/04/2024 10:15 AM EDT Office Visit [facility] [address] [place] [address] Ventura Tavares MD [address] [place] [address] documented as of this encounter Visit Diagnoses Not on filedocumented in this encounter Care Teams Locomotive Engineer Relationship Specialty Start Date End Date [place] [address] PCP - General Internal Medicine 03/11/14 documented as of this encounter
--- OUTSIDE RECORDS SUMMARY | 2024-09-21 14:59 | XMS_ITS | Encounter Summary ---
Author Organization [email or web address] Address [address] [facility] [address] [place] [address] Care Team Providers Care Wringer Operator Name Role Phone Ventura Tavares MD Primary Care Provide r Encounter Details Date Type Department Care Team (Late st Contact Info) Description 09/21/2024 Orders Only GENERIC EXTERNAL DATA DEPARTMENT Provider, Generic External Data Social History Tobacco Use Types Packs/Day Years [...] Upcoming Encounters Date Type Department Care Team ([facility] st Contact Info) Description 12/04/2024 10:15 AM EDT Office Visit [facility] [address] [place] [address] Ventura Tavares MD [address] [place] [address] documented as of this encounter Procedures Procedure Name Priority Date/Time Associated Diagnosis Comments GLUCOSE, WHOLE BLOOD Routine 09/21/2024 1:07 PM EST documented in this encounter Results * (ABNORMAL) Glucose, Whole Blood (09/21/2024 1:07 PM EST) Glucose, Whole Blood 142(H) 60 - 115 mg/dL [facility] Comment:METER #: [id number] 5Testing performed in the Endocrinology Department [address] , [address], [facility]. 09/21/2024 1:07 PM EST 09/21/2024 1:11 PM EST us Generic External Data Provider LAB BLOOD ORDERAB LES Final Result [facility] [address] [place] [address] [phone] documented in this encounter Visit Diagnoses Not on filedocumented in this encounter Additional Health Concerns Assessment Noted Time PHQ-9 Depression Total Score: 0 05/15/20 24 10:57 AM EDT documented as of this encounter Care Teams Wringer Operator Relationship Specialty Start Date End Date Ventura Tavares MD [address] [place] [phone] PCP - General Internal Medicine 03/11/14 documented as of this encounter
--- OUTSIDE RECORDS SUMMARY | 2024-09-21 14:59 | XMS_ITS | Encounter Summary ---
Author Organization [employer] Address [address] [facility] 7t [place] [address] Care Team Providers Care Experience Planning Strategist Name Role Phone Ventura Tavares MD Primary Care Provide r Encounter Details Date Type Department Care Team ([facility] Contact Info) Description 03/02/2023 Orders Only [facility] P[facility]S [address] [place] [address] Terra Hannon LPN Social History Tobacco Use [...] 10:15 AM EDT Office Visit [facility]INE [address] [place], [place] [phone] Ventura Tavares MD [address] [place], [place] [phone] documented as of this encounter Visit Diagnoses Not on filedocumented in this encounter Additional Health Concerns Assessment Noted Time PHQ-9 Depression Total Score: 12 023 10:55 AM EDT documented as of this encounter Care Teams Experience Planning Strategist Relationship Specialty Start Date End Date Ventura Tavares MD [address] [place] [address] PCP - General Internal Medicine 03/11/14 documented as of this encounter
--- OUTSIDE RECORDS SUMMARY | 2024-09-21 14:59 | XMS_ITS | Encounter Summary ---
Author Organization [employer] Address [address] [facility] [address] 7[address] [place] [address] Care Team Providers Care Residential Manager Name Role Phone Ventura Tavares MD Primary Care Provide r Reason for Visit * Reason Onset Date Comments Error (VOID this visit) 08/27/2024 Encounter Details Date Type Department Care Team ([facility] st Contact Info) Description 08/27/2024 Telephone [facility] MEDICINE [address] [place] [address] Ventura Tavares MD [address] [place], [place] [phone] Error (VOID this visit) Social History Tobacco [...] Description 12/04/2024 10:15 AM EDT Office Visit [facility]INE [address] [place] [address] Ventura Tavares MD [address] [place] [address] documented as of this encounter Visit Diagnoses Not on filedocumented in this encounter Additional Health Concerns Assessment Noted Time PHQ-9 Depression Total Score: 0 05/15/20 24 10:57 AM EDT documented as of this encounter Care Teams Residential Manager Relationship Specialty Start Date End Date Ventura Tavares MD [address] [place] [address] PCP - General Internal Medicine 03/11/14 documented as of this encounter
--- OUTSIDE RECORDS SUMMARY | 2024-09-21 14:59 | XMS_ITS | Encounter Summary ---
Author Organization [employer] Address [address] [facility] 7t [place] [address] Care Team Providers Care Wool Tamper Name Role Phone Ventura Tavares MD Primary Care Provide r Encounter Details Date Type Department Care Team ([facility] Contact Info) Description 09/20/2022 Orders Only [facility]EDS [address] [place], [place] [phone] Terra Hannon LPN Social History Tobacco Use [...] Upcoming Encounters Date Type Department Care Team ([facility] Contact Info) Description 12/04/2024 10:15 AM EDT Office Visit [facility] MED[facility]INE [address] [place], [place] [phone] Ventura Tavares MD [address] [place], [place] [phone] documented as of this encounter Visit Diagnoses Not on filedocumented in this encounter Care Teams Wool Tamper Relationship Specialty Start Date End Date Ventura Tavares MD [address] [place] [phone] PCP - General Internal Medicine 03/11/14 documented as of this encounter
--- OUTSIDE RECORDS SUMMARY | 2024-09-21 14:59 | XMS_ITS | Encounter Summary ---
Author Organization [employer] Address [address] [facility] [address] 7[address] [place] [address] Care Team Providers Care Smash Piecer Name Role Phone Ventura Tavares MD Primary Care Provide r Encounter Details Date Type Department Care Team ([facility] st Contact Info) Description 01/04/2023 Orders Only [facility] [address] [place] [address] Aime Bland MD [address] [place] [address] Dyspnea, unspecified type (Primary Dx) Social History [...] Description 12/04/2024 10:15 AM EDT Office Visit [facility] [address] [place] [address] Ventura Tavares MD [address] [place] [address] Scheduled Orders Name Type Priority Associated Diagnoses [...] [facility] ?[address] ?[place] [address] ?XRay Report ? Signed ? Patient: Sindi Obrien ?MR#: M ?? [id number] ? : 1950 ?Acct:[id number] ? Age/Sex: 72 / F ?ADM Date: 01/04/23 ? Loc: HO.HHCX ? Attending Dr: Aime Bland MD ? Ordering Physician: AIME BLAND MD ?? Date of Service: 01/04/23 ?? Procedure(s): XR chest 2V ?? Accession Number(s): [id number] ? cc: AIME BLAND MD ? EXAMINATION: [...] ?01/04/23 ? DD/ 19 ? TD/TT: ? Ladle Builder: HERSON ? Procedure Note Donotniainterpreter, Image - 01/19/2023 [facility] [address] [place] [address] XRay Report Signed Patient: Sindi ObrienMR#: [id number] : 2Acct:[id number] Age/Sex: 72 / FADM Date: 01/04/23 Loc: HO.HHCX Attending Dr: Aime Bland MD Ordering Physician: AIME BLAND MD Date of Service: 01/04/23 Procedure(s): XR chest 2V Accession Number(s): [id number] cc: AIME BLADN MD EXAMINATION: XR CHEST CLINICAL INFORMATION: SOB on exertion. COMPARISON: None available. TECHNIQUE: 2 views of the chest were obtained. FINDINGS: No significant abnormality is noted involving the heart, lungs, mediastinum, bony thorax or soft tissues. XR/XR chest 2V IMPRESSION: Unremarkable chest examination. Dictated By: Giancarlo Colby MD Signed By: <Electronically signed by Giancarlo Colby MD in OV> 01/04/23 1454 DD/ 1420 TD/TT: Ladle Builder: HERSON [facility] External Provider IMG XR PROCEDURES Final Result documented in this encounter Visit Diagnoses Diagnosis Dyspnea, unspecified type- Primary documented in this encounter Additional Health Concerns Assessment Noted Time PHQ-9 Depression Total Score: 12 023 10:55 AM EDT documented as of this encounter Care Teams Smash Piecer Relationship Specialty Start Date End Date Ventura Tavares MD [address] [place] [address] PCP - General Internal Medicine 03/11/14 documented as of this encounter
--- OUTSIDE RECORDS SUMMARY | 2024-09-21 14:59 | XMS_ITS | Encounter Summary ---
Author Organization [facility] Address [address] [facility] 7t [place] [address] Care Team Providers Care Supervisor Assembly Room Name Role Phone Ventura Tavares MD Primary Care Provide r Reason for Visit * Reason Comments Med Refill Encounter Details Date Type Department Care Team ([facility] Contact Info) Description 02/24/2023 Refill [facility]INE [address] [place] [phone] Ventura Tavares MD [address] [place] [address] Pain Social History Tobacco Use Types Packs/Day [...] Upcoming Encounters Date Type Department Care Team ([facility] Contact Info) Description 12/04/2024 10:15 AM EDT Office Visit [facility] [address] [place] [phone] Ventura Tavares MD [address] [place] [address] documented as of this encounter Visit Diagnoses Diagnosis Pain Generalized pain documented in this encounter Additional Health Concerns Assessment Noted Time PHQ-9 Depression Total Score: 12 023 10:55 AM EDT documented as of this encounter Care Teams Supervisor Assembly Room Relationship Specialty Start Date End Date Ventura Tavares MD [address] [place] [address] PCP - General Internal Medicine 03/11/14 documented as of this encounter
--- OUTSIDE RECORDS SUMMARY | 2024-09-21 14:59 | XMS_ITS | Encounter Summary ---
Author Organization [employer] Address [address] [facility] [address] [place] [address] Care Team Providers Care Nutrition Manager Name Role Phone Ventura Tavares MD [...] Description 12/04/2024 10:15 AM EDT Office Visit [facility]INE [address] [place] [address] Ventura Tavares MD [address] [place] [address] documented as of this encounter Visit Diagnoses Not on filedocumented in this encounter Additional Health Concerns Assessment Noted Time PHQ-9 Depression Total Score: 0 05/15/20 24 10:57 AM EDT documented as of this encounter Care Teams Nutrition Manager Relationship Specialty Start Date End Date Ventura Tavares MD [address] [place] [address] PCP - General Internal Medicine 03/11/14 documented as of this encounter
--- OUTSIDE RECORDS SUMMARY | 2024-09-21 14:59 | XMS_ITS | Patient Health Record ---
Author Organization [facility] Address [address] [place] [address] Care Team Providers Care Day Care Home Provider Name Role Phone Zeus Maldonado MD, Ventura Primary Care Provide Castillo Cash Unavailable [phone] ALLERGIES Allergen (clinical drug ingredient) Drug/Non Drug [...] for 30 days 10/13/2022 Active Vitamin D3 46361 UNIT 1 tablet Orally On ce a [...] W/U Status Risk SNOMED Code Notes Problem Epigastric abdominal pain (R10.13) Active confirmed Epigastric pain (53874485) Problem Encounter for screening for malignant neoplasm of colon (Z12.11) Active confirmed 274260679 Problem Encounter for screening for malignant neoplasm of rectum (Z12.12) Active confirmed Screening fo r malignant neoplasm of rectum (968357086) Problem Long-term use of aspirin therapy (Z79.82) Active confirmed 403804898 Problem Constipation, unspecified constipation type (K59.00) Active confirmed 10623270 Problem GERD (gastroesophage al reflux disease) (K21.9) Active confirmed Gastroesophagea l reflux disease (032866193) Problem Constipation, chronic (K59.00) Active confirmed Chronic constipation (702585199) PLAN OF TREATMENT Pending Test Test Name Order Date US ABD 05/23/2020 TSH REFLEX FREE T4 10/13/2022 Future Test Test Name Order Date COLONOSCOPY 06/12/2015 UPPER GI ENDOSCOPY 05/23/2020 Insurance Providers Payer Name Payer Address Payer Phone Subscriber Number Group Number Insured Name Patient Relationship to Insured Coverage Start Date Coverage End Date [facility] [address] [place] [address] [id number] CARINE LOCKHART Self - patient is the insured MEDICAL (GENERAL) HISTORY Medical History History ICD Code Screening colonoscopy 01/2005 and 08/2015--negative except for diverticulosis and internal hemorrhoids IDDM Hyperlipidemia Denies NM CVA > 10 yrs ago Asthma Chronic kidney disease state III-Dr. Rafael clayton HTN GERD Surgical History Surgery Date(Month/Year) Appendectomy Tubal ligation KATHARINA Cataracts and lens implants
--- OUTSIDE RECORDS SUMMARY | 2024-09-21 14:59 | XMS_ITS | Encounter Summary ---
Author Organization [employer] Address [address] [place] [address] Care Team Providers Care Funeral Home Attendant Name Role Phone Ventura Tavares MD Primary Care Provide r Encounter Details Date Type Department Care Team ([facility] st Contact Info) Description 07/05/2023 Telephone [facility] [address] [place], [place] [phone] Ventura Tavares MD [address] [place] [address] Social History Tobacco Use Types Packs/Day Years [...] 07/05/2023 2:11 PM EST Tc from farzad (CHILD SUPPORT CASE OFFICER) with [facility] calling to advise provider, a home assessment was done on behalf of CCAand pt A1C came out to be 10.8 Any questions, contact Far[employer] at [phone] documented in this encounter Plan of Treatment Upcoming Encounters Date Type Department Care Team (Late st Contact Info) Description 12/04/2024 10:15 AM EDT Office Visit [facility] [address], [place] [phone] Ventura Tavares MD [address] [place] [address] documented as of this encounter Visit Diagnoses Not on filedocumented in this encounter Additional Health Concerns Assessment Noted Time PHQ-9 Depression Total Score: 12 023 10:55 AM EDT documented as of this encounter Care Teams Funeral Home Attendant Relationship Specialty Start Date End Date Ventura Tavares MD [address] [place], [place] [phone] PCP - General Internal Medicine 03/11/14 documented as of this encounter
--- OUTSIDE RECORDS SUMMARY | 2024-09-21 14:59 | XMS_ITS | Encounter Summary ---
Author Organization [employer] Address [address] [place] [address] Care Team Providers Care Rotary Operator Name Role Phone Ventura Tavares MD Primary Care Provide r Reason for Visit * Reason Comments Diabetes Encounter Details Date Type Department Care Team (Latest Contact Info) Description 09/04/2024 2:15 PM EST Office Visit [facility] [address] [place] [address] Ventura Tavares MD [address] [place], [place] [phone] Hyperkalemia (Primary Dx); Type 2 diabetes mellitus [...] Addressed This Visit Type 2 diabetes mellitus ([facility]) Patient is here for a [...] Plan: As per Endocrinology Eye exam with Preparing Box Tender Lianet Vicente diagnosed with both eyes. Last seen 12/06/2023 Pt does not adhere to a diabetic diet, does not want to go any higher on her insulin dose as it wasrecommended by her Community Theater Actor. Pt advised to Adhere to diabetic diet 3 months f/u Relevant Orders POCT Glucose (Completed) POCT HGB A1C (Completed) Hyperkalemia - Primary Seen in the ER Follows with Nephrology, last seen 05/28/2024 [place] (dyspnea on exertion) Seen initially by Dr Demarcus Larry with c/o LE edema and elevated BNP, CXR was unermarkable. Dr. Larry spoke with Dr. Cosme's office (her police radio dispatcher), pt was seen 12/27/2023. We notified the office that her recreational vehicle resort manager Dr. Silverio prescribes Lasix 20 mg 2 tabs po daily. Patient followed by Dr Cosme Global Coordinator, Previous Stress Test and ECHO unremarkable. Last [...] care of retina specialist Depressive disorder Seeing Trnih Su at [facility] Lactose intolerance Patient reports lactose intolerance Would [...] Problem(s): Depressive disorder Seeing Trinh Su at [facility] * Assessment & Plan Note - Ventura [...] Plan: As per Endocrinology Eye exam with Preparing Box Tender [facility] Cinthia diagnosed with both eyes. Last seen 12/06/2023 Pt does not adhere to a diabetic diet, does not want to go any higher on her insulin dose as it wasrecommended by her Community Theater Actor. Pt advised to Adhere to diabetic diet [...] Chronic kidney disease (CKD), stage III (moderate) ([facility]) Under the care of Nephrology [...] Larry spoke with Dr. Cosme's office (her police radio dispatcher), pt was seen 12/27/2023. We notified the office that her recreational vehicle resort manager Dr. Silverio prescribes Lasix 20 mg 2 tabs po daily. Patient followed by Dr Cosme Global Coordinator, Previous Stress Test and ECHO unremarkable. Last seen 07/03/2024. * Assessment & Plan Note - Ventura Maldonado MD - 09/04/2024 1:58 PM EST Associated Problem(s): Hyperkalemia Seen in the ER Follows with Nephrology, last seen 05/28/2024 documented in this encounter Plan of Treatment Upcoming Encounters Date Type Department Care Team (Late st Contact Info) Description 12/04/2024 10:15 AM EDT Office Visit [facility] [address] [place] [address] Ventura Tavares MD [address] [place], [place] [phone] Scheduled Orders Name Type Priority Associated Diagnoses [...] disease, with long-term current use of insulin ([facility]) POCT GLUCOSE Routine 09/04/2024 2:01 PM EST Type 2 diabetes mellitus with stage 3a chronic kidney disease, with long-term current use of insulin ([facility]) documented in this encounter Results * (ABNORMAL) POCT HGB A1C (09/04/2024 2:05 PM EST) Hemoglobin A1C 9.0(A) 4.0 - 6.0 % QC Media Lot # [id number] Lot# Expiration Date Blood 09/04/2024 2:05 PM EST us Ventura Maldonado MD POINT OF CARE TEST EN TER/EDIT ORDERABLES Final Result * (ABNORMAL) POCT Glucose (09/04/2024 2:01 PM EST) Pathologist [facility] Glucose Blood, POC 283(A) 60 - 200 [...] disease, with long-term current use of insulin ([facility]) [place] (dyspnea on exertion) Other dyspnea and respiratory abnormality Primary hypertension Unspecified essential hypertension Stage 3a chronic kidney disease ([facility]) Preventative health care Routine general medical examination at a health care facility Mixed hyperlipidemia 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
--- OUTSIDE RECORDS SUMMARY | 2024-09-21 14:59 | XMS_ITS | Encounter Summary ---
Author Organization [facility] Address [address] [place] [address] Care Team Providers Care Piano Instructor Name Role Phone Ventura Tavares MD Primary Care Provide r Encounter Details Date Type Department Care Team (Late Contact Info) Description 12/01/2022 Abstract [facility] [address] [place] [phone] Ventura Tavares MD [address] [place] [address] [phone] Social History Tobacco Use Types Packs/Day Years [...] Description 12/04/2024 10:15 AM EDT Office Visit [facility] [address] [place] [address] [phone] Ventura Tavares MD [address] [place] [phone] documented as of this encounter Procedures Procedure Name Priority Date/Time Associated Diagnosis Comments HM COLONOSCOPY Routine 09/01/2015 documented in this encounter Results * Colonoscopy (09/01/2015) Colonoscopy Normal Normal 09/01/2015 Brittany Patel - 09/01/2015 11:54 AM EST Recommended 10 year follow up us Historical Provider [facility] Edited Result - Final documented in this encounter Visit Diagnoses Not on filedocumented in this encounter Care Teams Piano Instructor Relationship Specialty Start Date End Date Ventura Tavares MD [address] [place] [address] PCP - General Internal Medicine 03/11/14 documented as of this encounter
--- OUTSIDE RECORDS SUMMARY | 2024-09-21 14:59 | XMS_ITS | Clinical Summary ---
Author Organization [employer] Address [address] [facility] [address] [place] [address] Care Team Providers Care Departure Clerk Name Role Phone Ventura Tavares MD Primary Care Provide r Allergies Active Allergy Reactions Criticality Noted Date Comments Lisinopril Cough 07/23/2010 Metformin Diarrhea,Unknown 07/23/2010 Medications NovoLOG FLEXPEN 100 UNIT/ML pen INJECT 18 TO 20 UNITS BY SUBCUTANEOUS ROUTE THREE TIMES DAILY BEFORE MEALS 30 mL 6 05/24/20 23 Active hydrALAZINE (Apresoline) 25 MG tablet TAKE 1 TABLET BY MOUTH TWICE A DAY 180 tablet 3 10/27/19 24 Active acetaminophen (Tylenol) 500 MG tablet Take 2 tablets (1,000 mg) by mouth every 6 (six) hours if needed for moderate pain or fever. 40 tablet 01/10/20 24 Active metoprolol tartrate (Lopressor) 25 MG tabletIndications: Primary hypertension TAKE 1 TABLET BY MOUTH TWICE A DAY 180 tablet 3 01/31/20 24 Active aspirin (Aspirin Low Dose) 81 MG EC tablet TAKE 1 TABLET BY MOUTH EVERY DAY 90 tablet 3 03/05/20 24 Active insulin glargine (Lantus SoloStar) 100 UNIT/ML pen INJECT 28 UNITS SUBCUTANEOUSLY EVERY DAY AT BEDTIME 15 mL 6 03/07/20 24 Active Additional Information Patient taking differently: INJECT 20 UNITS SUBCUTANEOUSLY EVERY DAY AT BEDTIME, Reported on 05/29/2024 lidocaine (Lidoderm) 5 % patch APPLY 1 PATCH TOPICALLY IN THE MORNING. REMOVE AND DISCARD PATCH WITHIN 12 HOURS OR INSTRUCTED BY . 30 patch 2 04/02/20 24 Active furosemide (Lasix) 20 MG tablet Take 2 tablets (40 mg) by mouth Once per day. 60 tablet 05/15/20 24 Active Additional Information Patient taking differently: (No dose reported), (No route reported), (No frequency reported), 1 tablet every other day, Reported on 05/29/2024 BD Pen Needle Kelly 2nd Gen 32G X 4 MM misc USE DIRECTED 5 TIMES DAILY Active sodium polystyrene sulfonate (Kayexalate) powder TAKE 30 GRAMS ORALLY ONCE A WEEK 05/25/20 24 Active melatonin 5 MG tablet Take 0.5 tablets by mouth at bedtime. Active Cyanocobalamin (VITAMIN B12 PO) Take 1 tablet by mouth 1 (one) time each day. B-12 gummies Active atorvastatin (Lipitor) 40 MG tabletIndications: Mixed hyperlipidemia TAKE 1 TABLET BY MOUTH EVERY DAY 90 tablet 3 05/30/20 24 Active Continuous Glucose Sensor (FreeStyle Blake 3 Sensor) misc Apply 1 Device topically every 14 (fourteen) days. APPLY EVERY 14 DAYS DIRECTED 2 each 2 06/07/20 24 Active Jardiance 10 MG Take 1 tablet by mouth Once per day. 07/02/20 24 Active gabapentin (Neurontin) 300 MG capsuleIndications :Pain TAKE 1 CAPSULE BY MOUTH AT BEDTIME 90 capsule 08/21/19 25 Active Active Problems Problem Noted Date Diagnosed [...] appears bluish ,regular borders -referred today to property maintenance technician Routine physical examination 04/19/2023 Assessment & Plan [...] Larry spoke with Dr. Cosme's office (her informatica), pt was seen 12/27/2023. We notified the office that her motion picture cameraman Dr. Silverio prescribes Lasix 20 mg 2 tabs po daily. Patient followed by Dr Cosme Membership Sales Advisor, Previous Stress Test and ECHO unremarkable. Last seen 07/03/2024. Assessment & Plan (05/15/2024 1:05 PM EDT): Seen initially by Dr Demarcus Larry with c/o LE edema and elevated BNP, CXR was unermarkable. Dr. Larry spoke with Dr. Cosme's office (her informatica), pt was seen 12/27/2023. We notified the office that her motion picture cameraman Dr. Silverio prescribes Lasix 20 mg 2 tabs po daily. Patient followed by Dr Cosme Membership Sales Advisor, Previous Stress Test and ECHO unremarkable. Last seen 12/27/2023. Assessment & Plan (09/22/2023 11:38 AM EST): Seen by Dr Demarcus Larry with c/o LE edema, referred to cardiology seen by Dr Cosme Membership Sales Advisor, Stress Test and ECHO unremarkable Assessment & Plan (01/18/2023 10:50 AM EDT): Seen by Dr Demarcus Larry with c/o LE edema, referred to cardiology seen by Dr Cosme 01/06/2023 ECHO ordered [facility] care 01/18/2023 Assessment & Plan (09/04/2024 2:05 PM EST): Mammogram: Abnormal 05/05/2022 Biopsy 06/09/2022 Negative for malignancy repeat 10/24/2023 Normal Pap Smear: NL: 12/16/2005 s/p KATHARINA 20 years ago, no need to continue Colonoscopy: 09/01/2015 Dr Marilou Soni 10 year f/u Assessment & Plan (04/19/2023 [...] Soni 10 year f/u Assessment & Plan (01/18/2023 11:01 AM EDT): Mammogram: Abnormal 05/05/2022 Biopsy 06/09/2023 Negative for malignancy Pap Smear: NL: 12/16/2005 s/p KATHARINA 20 years ago, no need to continue Colonoscopy: 09/01/2015 Dr Zamarripa Nl 10 year f/u Sharp's cyst, left 12/31/2022 [...] 2:14 PM EST): Seeing Trinh Su at [facility] Hyperlipidemia 04/06/2012 Assessment & Plan (09/04/2024 2:05 [...] Plan: As per Endocrinology Eye exam with [facility] diagnosed with Dr. both eyes. Last seen 12/06/2023 Pt does not adhere to a diabetic diet, does not want to go any higher on her insulin dose as it was recommended by her Blocking Machine Operator Second. Pt advised to Adhere to diabetic diet [...] Plan: As per Endocrinology Eye exam with [facility] 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 Last seen 12/06/2023 Pt does not adhere to a diabetic diet, does not want to go any higher on her insulin dose as it was recommended by her Blocking Machine Operator Second. Pt advised to Adhere to diabetic diet [...] 81 mg po daily. Eye exam with [facility] diagnosed with DR both eyes 10/26/2016 Pt does not adhere to a diabetic diet, does not want to go any higher on her insulin dose as it was recommended by her Blocking Machine Operator Second. Pt advised to Adhere to diabetic diet [...] 81 mg po daily. Eye exam with [facility] diagnosed with DR both eyes 10/26/2016 Pt does not adhere to a diabetic diet, does not want to go any higher on her insulin dose as it was recommended by her Blocking Machine Operator Second. Pt advised to Adhere to diabetic diet [...] 81 mg po daily. Eye exam with [facility] diagnosed with DR both eyes 10/26/2016 Pt does not adhere to a diabetic diet, does not want to go any higher on her insulin dose as it was recommended by her Blocking Machine Operator Second. Pt advised to Adhere to diabetic diet [...] 81 mg po daily. Eye exam with [facility] diagnosed with DR both eyes 10/26/2016 Pt does not adhere to a diabetic diet, does not want to go any higher on her insulin dose as it was recommended by her Blocking Machine Operator Second. Pt advised to Adhere to diabetic diet [...] 81 mg po daily. Eye exam with [facility] diagnosed with DR both eyes 10/26/2016 Pt does not adhere to a diabetic diet, does not want to go any higher on her insulin dose as it was recommended by her Blocking Machine Operator Second. Pt advised to Adhere to diabetic diet [...] Encounters Date Type Department Care Team Description 09/21/2024 Orders Only GENERIC EXTERNAL DATA DEPARTMENT Provider, Generic External Data 09/04/2024 2:15 PM EST Office Visit [facility] [address] [place] [address] Ventura Tavares MD Hyperkalemia (Primary Dx); Type 2 diabetes mellitus with stage 3a chronic kidney disease, with long-term current use of insulin ([facility] [place] (dyspnea on exertion); Primary hypertension; Stage 3a chronic kidney disease ([facility]); Preventative health care; Mixed hyperlipidemia; 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 ([facility]); Depressive disorder; Lactose intolerance 09/04/2024 Travel 08/27/2024 Telephone [facility] [address] [place] [address] Ventura Tavares MD Error (VOID this visit) 08/21/2024 Refill [facility] [address] [place] [phone] Ventura Tavares MD Pain 08/15/2024 Telephone [facility] [address] [place] [phone] Ventura Tavares MD Appointment Confirmation 08/01/2024 Telephone [facility] [address] [place] [phone] Ventura Tavares MD Chart Prep 07/26/2024 8:40 AM EST Office Visit [facility] [address] [place] [phone] Trung Wu MD Greater trochanteric bursitis of left hip (Primary Dx) 07/10/2024 2:30 PM EST Telemedicine [facility] [address] [place] [phone] Chelsy Dickson, Annette Type 2 diabetes mellitus with stage 3a chronic kidney disease, with long-term current use of insulin ([facility]) (Primary Dx); Primary hypertension 06/25/2024 Orders Only GENERIC EXTERNAL DATA DEPARTMENT Provider, Generic External Data 06/22/2024 Orders Only GENERIC EXTERNAL DATA DEPARTMENT Provider, Generic External Data from Last 3 Months Immunizations Name Administration [...] 10:15 AM EDT Office Visit [facility] [address] [place] [address] Ventura Tavares MD [address] [place] [address] Health Maintenance Due Date Last Done Comments CT Colonography 1950 FIT DNA/Cologuard 1950 FIT 1950 FOBT 1950 Sigmoidoscopy 1950 Diabetes: Foot Exam 11/04/1961 Eye Exam 11/04/1961 Hepatitis C Screening 11/04/1969 RSV Patients and Patients Aged 60 years or older (1 - Risk 60-74 years 1-dose series) 2011 Zoster Vaccines (2 of 3) 04/01/2015 02/04/2015 Lipid Panel 09/29/2024 09/30/2023, 06/0 03/2023, 04/05/2022, [...] WHOLE BLOOD Routine 09/21/2024 1:07 PM EST POCT GLYCATED HEMOGLOBIN, TOTAL Routine 09/04/2024 2:05 PM EST Type 2 diabetes mellitus with stage 3a chronic kidney disease, with long-term current use of insulin ([facility]) POCT GLUCOSE Routine 09/04/2024 2:01 PM EST Type 2 diabetes mellitus with stage 3a chronic kidney disease, with long-term current use of insulin ([facility]) GLUCOSE, WHOLE BLOOD Routine 06/25/2024 10:55 AM [...] Relevant to Health Maintenance Results * (ABNORMAL) Glucose, Whole Blood (09/21/2024 1:07 PM EST) Only the most recent of2 resultswithin the time period is included. Glucose, Whole Blood 142(H) 60 - 115 mg/dL [facility] Comment:METER #: [id number] 5Testing performed in the Endocrinology Department [address] , [address], [place]. 09/21/2024 1:07 PM EST 09/21/2024 1:11 PM EST us Generic External Data Provider LAB BLOOD ORDERAB LES Final Result [facility] [address] [place] [phone] [phone] * (ABNORMAL) POCT HGB A1C (09/04/2024 2:05 PM EST) Pathologist [facility] Hemoglobin A1C 9.0(A) 4.0 - 6.0 % QC Media Lot # [id number] Lot# Expiration Date Blood 09/04/2024 2:05 PM EST Ventura Maldonado MD POINT OF CARE TEST EN TER/EDIT ORDERABLES Final Result * (ABNORMAL) POCT Glucose (09/04/2024 2:01 PM EST) Pathologist [facility] Glucose Blood, POC 283(A) 60 - 200 mg/dL QC Media Lot # [id number] Lot# Expiration Date Blood Capillary blood specimen / Unknown 09/04/2024 2:01 PM EST Ventura Maldonado MD POINT OF CARE TEST EN TER/EDIT ORDERABLES Final Result * (ABNORMAL) Comprehensive Metabolic Panel, Fasting (06/22/2024 11:11 AM EST) [facility] Sodium 140 135 - 145 mmol/L [facility] Potassium 4.5 3.3 - 5.1 mmol/L [facility] Chloride 105 96 - 108 mmol/L [facility] Carbon Dioxide 24 22 - 29 mmol/L [facility] Anion Gap 16 12 - 20 [facility] Urea Nitrogen (BUN) 35(H) 9 - 16 mg/dL [facility] Creatinine, Serum 1.87(H) 0.5 - 1.4 mg/dL [facility] Estimated Glomerular Filt Rate 26 [facility] Comment:Chronic Kidney Disea se: Estimated GFR < 60 mL/min/1.85q0Rqihvy Kidney Disease: Estimated GFR < 15 mL/min/1.73m2 Glucose Fasting 231(H) 60 - 99 mg/dL [facility] Comment:A fasting glucose of 126 mg/dl or greater on more than oneoccasion is considered diagnostic of diabetes. Calcium 9.3 8.4 - 10.2 mg/dL [facility] Bilirubin, Total 0.4 0.0 - 1.0 mg/dL [facility] Aspartate Amino Transferase 26 5 - 31 U/L [facility] Alanine Aminotransferase 28 0 - 31 U/L [facility] Total Protein 6.9 6.5 - 8.0 g/dL [facility] Albumin Level 3.7 3.5 - 5.0 g/dL [facility] Alkaline Phosphatase 113 39 - 117 U/L [facility] 06/22/2024 11:1 1 AM EST 06/22/2024 11:11 AM EST us Generic External Data Provider LAB BLOOD ORDERAB LES Final Result Performing Organization Address City/State/[facility] Co de Phone Number [facility] [address] [place] [phone] * (ABNORMAL) Hemoglobin A1c (06/22/2024 11:11 AM EST) Hemoglobin A1c 8.0(H) <6.0 % [facility] Comment:Hemoglobin A1C Refer ence Range Adults: 4.8 - 6.0 % Non diabetic: < 6.0 % Goal: < 7.0 %Additional Action Suggested: > 8.0 %Note: Hemoglobin A1c results are invalid for patients with abnormal amounts of HbF. Blood transfusions may impact the HbA1c concentration in the patient sample. Estimated Average Glucose 183 mg/dL [facility] Comment:eAG = Estimated ave rage glucose which is %A1C expressed asaverage glucose, using the formula of the [id number] Glucose study (ADAG), Diabetes Care, Vol.31,#8,2007 06/22/2024 11:1 1 AM EST 06/22/2024 11:11 AM EST us Generic External Data Provider LAB BLOOD ORDERAB LES Final Result Performing Organization Address [facility] de Phone Number [facility] [address] [place] [phone] [phone] * (ABNORMAL) Albumin, Random Urine W/Creatinine (06/22/2024 11:09 AM EST) Creatinine, Urine 56.40 mg/dL [facility] Microalbumin Urine 276.0 mg/L H [facility] Microalbum Creatinine Ratio Ur 489.3(H) <30 ug/mg cr [facility] Comment:Albumin/Creatinine R atio Reference Ranges: Normal: < 30 ug/mg creatinine Microalbuminuria: 30 - 300 ug/mg creatinineClinical Albuminuria: > 300 ug/mg creatinine 06/22/2024 11:0 9 AM EST 06/22/2024 11:23 AM EST Generic External Data Provider LAB URINE ORDERAB LES Final Result Performing Organization Address [facility] de Phone Number [facility] [address] [place] [phone] [phone] * BI Mammogram Screening Tomosynthesis Bilateral (10/24/2023 12:40 PM EDT) Anatomical Region Laterality Modality Breast Bilateral Mammography 10/24/2023 12:4 0 PM EDT Narrative 11/06/2023 3:28 PM EDT ? [facility] ? [address] ?[place] [address] ? Mammography Report ? Signed ? Patient: Sindi Obrien ?MR#: M ?? [id number] ? : 1950 ?Acct:[id number] ? Age/Sex: 72 / F ?ADM Date: 04/01/24 ? Loc: HO.MAMMO ? Attending Dr: Ventura Shi MD ? Ordering Physician: Ventura Shi MD ?Resu ?? lts: 2Benign Findings ? Date of Service: 10/24/23 ?Follow Up: 1 Year From Orig ?? inal Mammogram ? Procedure(s): MM tomosynthesis screening BI ?? Accession Number(s): [id number] ? cc: Ventura Shi MD ? EXAMINATION: ?? MM SCREENING DIGITAL BREAST TOMOSYNTHESIS, BILATERAL ? CLINICAL INFORMATION: ? Screening. Asymptomatic. ? COMPARISON: ?? Mammography: This study is compared with prior exams dating back to ?? 2017. ? TECHNIQUE: ?? Digital breast tomosynthesis is [...] by Hyacinth Moeller MD in OV> ? 11/06/235 ? DD/ 1240 ? TD/TT: ? Deckhand: ? Procedure Note Donotuseinterpreter, Image - 11/06/2023 [facility] [address] [place] [address] Dr. [place], [place] [address] Mammography Report Signed Patient: Sindi ObrienMR#: M [id number] : 1950cct:[id number] Age/Sex: 72 / FADM Date: 10/24/23 Loc: HO.MAMMO Attending Dr: Ventura Shi MD Ordering Physician: Ventura Shi MDResu lts: 2Benign Findings Date of Service: 10/24/23Follow Up: 1 Year From Orig inal Mammogram Procedure(s): MM tomosynthesis screening BI Accession Number(s): [id number] cc: Ventura Shi MD EXAMINATION: MM SCREENING [...] in OV> 11/06/23 1525 DD/ 1240 TD/TT: Deckhand: us Ventura Maldonado MD IMG BI PROCEDURES Ortiz cesar Result - Final * Lipid Panel, Standard (09/30/2023 8:11 AM EST) Triglycerides 50 <150 mg/dL [facility] Comment:Desirable Triglyceri de: less than 150 mg/dLBorderline High Triglyceride 150-199 mg/dLHigh Triglyceride: 200-499 mg/dLVery High Triglyceride: greater than or equal to 5OO mg/dL Cholesterol 143 <200 mg/dL [facility] Comment:Desirable Cholestero l: less than 200 mg/dLBorderline High Cholesterol: 200-239 mg/dLHigh Cholesterol: greater than 239 mg/dL LDL Cholesterol Calculated 64 <100 mg/dL [facility] Comment:Desirable LDL: less than 100 mg/dLNear Optimal/Above Optimal LDL: 110- 129 mg/dLBorderline High LDL: 130-159 mg/dLHigh LDL: 160-189 mg/dLVery High LDL: greater than or equal to 190 mg/dL HDL Cholesterol 69 >40 mg/dL [facility] Comment:Desirable HDL: great er than 40 mg/dL Note: This HDL assay may give artificially low results in patients with liver disease. 09/30/2023 8:11 AM EST 09/30/2023 8:11 AM EST us Generic External Data Provider LAB BLOOD ORDERAB LES Final Result [facility] [address] [place] [phone] * Hm Colonoscopy (09/01/2015) Colonoscopy Normal Normal 09/01/2015 Brittany Patel - 09/01/2015 11:54 AM EST Recommended 10 year follow up us Historical Provider HEALTH MAINTENANCE Edited Result - Final from Last 3 Months or Most Recently Relevant to Health Maintenance Insurance [facility] Care Teams Departure Clerk Relationship Specialty Start Date End Date Ventura Tavares MD [address] [place] [address] PCP - General Internal Medicine 03/11/14
--- OUTSIDE RECORDS SUMMARY | 2024-09-21 14:59 | XMS_ITS | Clinical Summary ---
Author Organization [facility] Address [address] [place] [address] [address] [place] [place] [phone] Phone Care Team Providers Care Welfare Adviser Name Role Phone Ventura Schulz MD Primary [...] & Plan: Improving Pt seen at our [facility] by Dr Demarcus Larry, [place] negative for [...] patient's age to complete this topic Insurance [facility] MCR ([id number]) MAZIN SINGER [id number] [facility] MCR ([id number]) MAZIN SINGER [id number] Care Teams Welfare Adviser Relationship Specialty Start Date End Date Ventura Schulz MD [address] [place] [phone] PCP - General 08/04/20
--- OUTSIDE RECORDS SUMMARY | 2024-09-21 14:59 | XMS_ITS | Encounter Summary ---
Author Organization [employer] [facility] Address [address] [place] [address] [address] [place] [address] Care Team Providers Care Shipbuilding Draftsperson Name Role Phone Ventura Tavares MD Primary Care Provide r Encounter Details Date Type Department Care Team (Late st Contact Info) Description 07/09/2022 [facility] Health Information Management [address] [place], [place] [phone] Ventura Tavares MD [address] [place], [place] [phone] Social History Tobacco Use Types Packs/Day Years [...] Description 12/04/2024 10:15 AM EDT Office Visit [facility] [address] [place], [place] [phone] Ventura Tavares MD [address] [place], [place] [phone] documented as of this encounter Procedures Procedure [...] (09/06/2022 10:34 AM EST) Color Urine Yellow [facility] Appearance Urine Clear [facility] PH 7.5 5.0 - 9.0 [facility] Glucose Urine UA 100(A) Negative mg/dL [facility] Urine Blood Negative Negative [facility] Specific [place] - Urine 1.020 1.005 - 1.025 [facility] Urine Protein 100 (2+)(A) Neg-Trace mg/dL [facility] Urine Ketones Negative Negative mg/dL [facility] Nitrite Urine Negative Negative [facility] Leukocyte Esterase Urine Negative Negative [facility] RBC Urine 0-2 0 - 2 /HPF [facility] Urine WBC 0-5 0 - 5 /HPF [facility] Urine Squamous Epithelial Cell 6-10 0 - 2 /HPF [facility] Urine Bacteria None Seen None Seen [facility] Hyaline Casts, Urine 0-2 0 - 2 /LPF [facility] 09/06/2022 10:3 4 AM EST 09/06/2022 10:38 AM EST [facility] - 09/06/2022 10:51 AM EST [id number], Clean C[employer] [facility] External Provider LAB URI NE ORDERABLES Final Result Performing Organization Address [facility] de Phone Number [facility] [address] [place] [address] [phone] * (ABNORMAL) Urinalysis with reflex microscopic (09/06/2022 10:34 AM EST) Color Urine Yellow [facility] Appearance Urine Clear [facility] PH 7.5 5.0 - 9.0 [facility] Glucose Urine UA 100(A) Negative mg/dL [facility] Urine Blood Negative Negative [facility] Specific [place] - Urine 1.020 1.005 - 1.025 [facility] Urine Protein 100 (2+)(A) Neg-Trace mg/dL [facility] Urine Ketones Negative Negative mg/dL [facility] Nitrite Urine Negative Negative [facility] Leukocyte Esterase Urine Negative Negative [facility] 09/06/2022 10:3 4 AM EST 09/06/2022 10:38 AM EST [facility] - 09/06/2022 10:45 AM EST [id number], Clean Catch [facility] External Provider LAB URI NE ORDERABLES Final Result Performing Organization Address [facility] Co de Phone Number [facility] [address] [place] [address] [phone] * (ABNORMAL) Comprehensive Metabolic Panel (09/06/2022 10:27 AM EST) Sodium 139 135 - 145 mmol/L [facility] Potassium 5.1 3.3 - 5.1 mmol/L [facility] Chloride 103 96 - 108 mmol/L [facility] Carbon Dioxide 29 22 - 29 mmol/L [facility] Anion Gap 12 12 - 20 [facility] Urea Nitrogen (BUN) 36(H) 9 - 16 mg/dL [facility] Creatinine, Serum 1.47(H) 0.5 - 1.4 mg/dL [facility] Creatinine Clr Calc Pharmacy 27.5 [facility] Comment:Provided height and weight: 134.62 cm,78.018 kg.eGFR (calculated from the MDRD study equation) and eCrCl(calculated from the Cockcroft-Gault equation) are based ondifferent parameters and may not yield comparable results.If eCrCl result is absurd, please check patient'sheight/weight. Estimated Glomerular Filt Rate 35 [facility] Comment:NOTE: For -Am erican individuals, multiply the result by 1.210.Chronic Kidney Disease: Estimated GFR < 60 mL/min/[id number] Kidney Disease: Estimated GFR < 15 mL/min/1.73m2 Glucose 190(H) 60 - 115 mg/dL [facility] Calcium 9.4 8.4 - 10.2 mg/dL [facility] Bilirubin, Total 0.6 0.0 - 1.0 mg/dL [facility] Aspartate Amino Transferase 18 5 - 31 U/L [facility] Alanine Aminotransferase 16 0 - 31 U/L [facility] Total Protein 6.9 6.5 - 8.0 g/dL [facility] Albumin Level 4.0 3.5 - 5.0 g/dL [facility] Alkaline Phosphatase 105 39 - 117 U/L [facility] 09/06/2022 10:2 7 AM EST 09/06/2022 10:31 AM EST us [facility] External Provider LAB BLO OD ORDERABLES Final Result [facility] [address] [place] [address] [phone] * (ABNORMAL) CBC auto differential (09/06/2022 10:27 AM EST) White Blood Count 6.5 4.8 - 10.8 X10*3/uL [facility] Red Blood Count 3.99(L) 4.20 - 5.50 X10*6/uL [facility] Hemoglobin 12.0 12.0 - 16.0 g/dl [facility] Hematocrit 36.2(L) 37.0 - 47.0 % [facility] Mean Corpuscular Volume 90.7 80.0 - 98.0 fL [facility] Mean Corpuscular Hemoglobin 30.1 27.0 - 33.0 pg [facility] Mean Corpuscular HGB Conc 33.1 31.0 - 35.0 g/dl [facility] Red Cell Distribution Width 11.6 11.0 - 16.0 % [facility] Platelet Count 194 160 - 400 X10*3/uL [facility] Mean Platelet Volume 10.6 9.4 - 12.3 fL [facility] Neutrophils Percent Auto 64.0 45 - 73 % [facility] Imm Gran Pct Auto 0.3 0.0 - 0.4 % [facility] Lymphocytes Percent Auto 22.6 20 - 40 % [facility] Monocytes Percent Auto 7.9 2 - 11 % [facility] Eosinophils Percent Auto 4.7(H) 0 - 4 % [facility] Basophils Percent Auto 0.5 0 - 2 % [facility] NRBC Pct Auto 0.0 0.0 - 0.2 /100WBC [facility] Neutrophils Absolute Auto 4.1 2.0 - 8.3 x10*3/uL [facility] Imm Gran Abs Auto 0.02 0.00 - 0.03 X10*3/uL [facility] Lymphocytes Absolute Auto 1.5 1.2 - 4.9 X10*3/uL [facility] Monocytes Absolute Auto 0.5 0.1 - 1.2 X10*3/uL [facility] Eosinophils Absolute Auto 0.3 0.0 - 0.4 X10*3/uL [facility] Basophils Absolute Auto 0.0 0.0 - 0.2 X10*3/uL [facility] NRBC Abs Auto 0.000 0.0 - 0.012 X10*3/uL [facility] 09/06/2022 10:2 7 AM EST 09/06/2022 10:31 AM EST [facility] External Provider LAB BLO OD ORDERABLES Final Result Performing Organization Address [facility] Phone Number [facility] [address] [place] [phone] * Calcium (08/03/2022 8:15 AM EST) Calcium 9.2 8.4 - 10.2 mg/dL [facility] 08/03/2022 8:15 AM EST 08/03/2022 10:30 AM EST [facility] External Provider LAB BLO OD ORDERABLES Final Result Performing Organization Address [facility] Number [facility] [address] [place] [phone] * (ABNORMAL) Creatinine, Serum (08/03/2022 8:15 AM EST) Creatinine, Serum 1.54(H) 0.5 - 1.4 mg/dL [facility] Estimated Glomerular Filt Rate 33 [facility] Comment:NOTE: For -Am erican individuals, multiply the result by 1.210.Chronic Kidney Disease: Estimated GFR < 60 mL/min/[id number] Kidney Disease: Estimated GFR < 15 mL/min/1.73m2 08/03/2022 8:15 AM EST 08/03/2022 10:30 AM EST [facility] External Provider LAB BLO OD ORDERABLES Final Result Performing Organization Address [facility] Co de Phone Number [facility] [address] [place] [phone] * (ABNORMAL) BUN (Blood Urea Nitrogen) (08/03/2022 8:15 AM EST) Urea Nitrogen (BUN) 39(H) 9 - 16 mg/dL [facility] 08/03/2022 8:15 AM EST 08/03/2022 10:30 AM EST [facility] External Provider LAB BLO OD ORDERABLES Final Result Performing Organization Address City/[facility] Co de Phone Number [facility] [address] [place] [address] [phone] * (ABNORMAL) Electrolyte Panel (08/03/2022 8:15 AM EST) Sodium 140 135 - 145 mmol/L [facility] Potassium 5.5(H) 3.3 - 5.1 mmol/L [facility] Chloride 106 96 - 108 mmol/L [facility] Carbon Dioxide 28 22 - 29 mmol/L [facility] Anion Gap 12 12 - 20 [facility] 08/03/2022 8:15 AM EST 08/03/2022 10:30 AM EST [facility] External Provider LAB BLO OD ORDERABLES Final Result Performing Organization Address [facility] de Phone Number [facility] [address] [place] [address] [phone] documented in this encounter Visit Diagnoses Not on filedocumented in this encounter Care Teams Shipbuilding Draftsperson Relationship Specialty Start Date End Date Ventura Tavares MD [address] [place] [phone] PCP - General Internal Medicine 03/11/14 documented as of this encounter
== END 2024-09-21 13:38 | disposition home or self-care (01) ==
PROVIDERS: PCP Internal Medicine; Visit Provider Physician Assistant
DX: E11.21 Type 2 diabetes mellitus with diabetic nephropathy (principal); Z79.4 Long term (current) use of insulin; I10 Essential (primary) hypertension; E11.22 Type 2 diabetes mellitus with diabetic chronic kidney disease; N18.30 Chronic kidney disease, stage 3 unspecified; E66.01 Morbid (severe) obesity due to excess calories; Z68.41 Body mass index [BMI] 40.0-44.9, adult; Z13.9 Encounter for screening, unspecified; E11.65 Type 2 diabetes mellitus with hyperglycemia

== ENCOUNTER → 2024-09-21 12:55 | Outpatient (BNVA) | payer OTHER, SELFPAY | PROVIDERS: PCP Internal Medicine; Visit Provider Physician Assistant | DX: E11.21 Type 2 diabetes mellitus with diabetic nephropathy (principal); I12.9 Hypertensive chronic kidney disease with stage 1 through stage 4 chronic kidney disease, or unspecified chronic kidney disease; E11.22 Type 2 diabetes mellitus with diabetic chronic kidney disease; N18.30 Chronic kidney disease, stage 3 unspecified; E66.01 Morbid (severe) obesity due to excess calories; Z68.41 Body mass index [BMI] 40.0-44.9, adult; Z79.4 Long term (current) use of insulin; Z71.3 Dietary counseling and surveillance | CPT/HCPCS: 82947; 83036; 99212 ==

== ENCOUNTER 2024-10-08 12:42 | Outpatient (AMB) | payer OTHER, SELFPAY ==
--- NOTE | 2024-10-08 12:52 | A.OFFVIS_ITS ---
Vital Signs 10/08/24 12:53 Height 4 ft 5 in Weight 158 lb 11.725 oz BMI 39.7 BP 138/72 Blood Pressure Location Rt brachial Position Sitting Pulse 85 Pulse Source Pulse Oximeter Pulse Oximetry (%) 96 Oxygen Delivery Method Room Air Intake Visit Reasons: dm Intake Note: Patient presents today for a follow-up on Type 2 Diabetes Mellitus: Last Diabetic eye exam was on: 06/2024 Last Podiatry exam was on: Patient does not see a Data Collection Technician Most recent HbA1c: 9.5%, 09/21/2024 Random Glucose- 242 mg/dL, Today Automotive Hardware Engineer Required: Yes Automotive Hardware Engineer Language: Waiter/Waitress Informal Services: Automotive Hardware Engineer Present Automotive Hardware Engineer Name: JACKLYN Turner/CRUZ KRUGER Information Interpreted: non-clinical & clinical Accompanied by: Self / Same As Patient Allergies metformin [From GLUCOPHAGE] Adverse Reaction (Unknown, Verified 10/08/24 12:53) DIARRHEA Medication List - Last Reconciled 10/08/24 by Suyapa Best PA-C acetaminophen (Tylenol Extra Strength) 1,000 mg (2 x 500 mg) PO QID PRN aspirin 81 mg PO DAILY atorvastatin 40 mg PO BEDTIME blood sugar diagnostic (FreeStyle Lite Strips) As directed three times a day blood-glucose meter,continuous (FreeStyle [place] 3 [place]) Use daily As directed to monitor type 2 diabetes blood-glucose meter,continuous (FreeStyle [place] 3 [place]) As directed blood-glucose sensor (FreeStyle Blake 3 Sensor device) Apply every 14 days As directed dulaglutide (Trulicity) 1.5 mg (0.5 mL) subcut QWEEK empagliflozin (Jardiance) 10 mg PO DAILY furosemide 40 mg (2 x 20 mg) PO DAILY gabapentin 300 mg PO BEDTIME hydralazine 25 mg PO BID insulin glargine 30 units (0.3 mL) subcut BEDTIME 90 days lancets (TRUEplus Lancets) As directed 3x/day metoprolol tartrate 25 mg PO BID Novolog FlexPen U-100 Insulin (insulin aspart U-100) 5 units (0.05 mL) subcut TID 90 days NS pen needle, diabetic (BD Kelly 2nd Gen Pen Needle) 5 times a day sodium polystyrene sulfonate 30 grams PO .once a week HPI HPI dm: Details: Patient is a 73-year-old female with a significant past medical history of CKD, peripheral neuropathy, PB, hypertension, type 2 diabetes, insulin-dependent, prior CVA presenting today for follow-up regarding her diabetes. Shakeel here for translation. Endo: Her last A1c was 8 and today it is 9.5. She is supposed to be on Lantus 25 units and NovoLog 5 units t.i.d., jardiance 10 mg, and recently restarted on trulicity. She has no adverse effects to the Trulicity. She has noted some appetite suppression. She is eating healthier. -mounjaro caused diarrhea so she discontinued, ozempic did not tolerate. CGM- Her usage is 91%, average glucose 189, glucose variability 41.2%, G mi 7.7. Very high 21%, high 27%, in range 50%,, no low blood sugars. CV: Blood pressure today in the office is 138/72. She is currently on metoprolol 25 mg b.i.d., hydralazine 25 mg twice a day, furosemide 40 mg daily. cholesterol is controlled with atorvastatin 40 mg. Last LDL was 64. She follows Cardiology and Nephrology. [facility] Medical History Snoring Dyspnea on exertion PB (obstructive sleep apnea) Hypoxemia Breast calcification, right Obesity due to excess calories Peripheral nerve facial nerve paralysis History of CVA (cerebrovascular accident) GERD (gastroesophageal reflux disease) Asthma Morbid obesity Hypertension CKD stage 3 due to type 2 diabetes mellitus longterm (current) use of insulin Diabetic nephropathy associated with type 2 diabetes mellitus Dyslipidemia Diabetes type 2, uncontrolled Surgical History Hx of tubal ligation Hx of bilateral cataract extraction Hx of hysterectomy History of appendectomy Family History Father Cancer Mother Diabetes mellitus Social History Household Members: None Housing: Apartment Do you presently have visiting nurse or other home services: Yes Alcohol intake: never Patient Tobacco Use Status: Never used Tobacco Second Hand Smoke Exposure: No Advance Directives Date on File: 11/26/20 service: No Current occupational status: disabled Current occupation: rt handed Female Reproductive History Menstrual Age of Menarche: 12 Physical Exam Vital Signs: Last Vital Signs Pulse 85 10/08/24 12:53 BP 138/72 10/08/24 12:53 Pulse Ox 96 10/08/24 12:53 Oxygen Delivery Method Room Air 10/08/24 12:53 BMI result Body Mass Index 39.7 Const Orientation/consciousness: patient oriented x3 HEENT Ears: hearing grossly normal bilaterally Neck Thyroid: Thyroid normal Lymphatic: no lymphadenopathy noted Resp Auscultation: clear to auscultation bilaterally Cardio Rate: regular rate Rhythm: regular rhythm Heart sounds: S1 normal heart sound present and S2 normal heart sound present Skin General skin exam: no rashes or lesions noted Neuro General: patient oriented x3, gait normal and no focal motor deficits Results Reviewed Results Reviewed: Laboratory Last Values Glucose (Clinic) 242 mg/dL (60-115) H 10/08/24 12:59 Assessment & Plan Assessment & Plan (1) Diabetes type 2, uncontrolled: Comment: IDDM Code(s): E11.65 - Type 2 diabetes mellitus with hyperglycemia Category: Medical Plan: increase trulicity to 1.5 mg weekly increase lantus to 30 units continue novolog 5 units three times a day with meals continue jardiance 10 mg daily return in 2-3 months (2) Dyslipidemia: Code(s): E78.5 - Hyperlipidemia, unspecified Category: Medical Plan: Continue current regimen. (3) Hypertension: Code(s): I10 - Essential (primary) hypertension Category: Medical Qualifiers: Hypertension type: primary hypertension Qualified Code(s): I10 - Essential (primary) hypertension Plan: WNL. Continue current (4) Morbid obesity with BMI of 40.0-44.9, adult: Code(s): E66.01 - Morbid (severe) obesity due to excess calories; Z68.41 - Body mass index [BMI] 40.0-44.9, adult Category: Medical Plan: She has lost weight from our visit. Trulicity is causing some appetite suppression. Continue current regimen. Medications: New dulaglutide (Trulicity) 1.5 mg (0.5 mL) subcut QWEEK 2 mL 4RF Changed From insulin glargine 25 units (0.25 mL) subcut BEDTIME 90 days 22.5 mL 1RF E11.65 - Type 2 diabetes mellitus with hyperglycemia To insulin glargine 30 units (0.3 mL) subcut BEDTIME 90 days 30 mL 1RF E11.65 - Type 2 diabetes mellitus with hyperglycemia Discontinued dulaglutide (Trulicity) Discontinued Reason: Doctor's Order 0.75 mg (0.5 mL) subcut QWEEK 2 mL 3RF Patient Instructions: increase trulicity to 1.5 mg weekly increase lantus to 30 units continue novolog 5 units three times a day with meals continue jardiance 10 mg daily return in 2-3 months Coding Level of Care Code Est Pt Level 4 (17651) Complex EM visit Add On G2211 Diagnoses Diabetes type 2, uncontrolled E11.65 Dyslipidemia E78.5 Primary hypertension I10 Hypertension type: primary hypertension Morbid obesity with BMI of 40.0-44.9, adult E66.01; Z68.41
[2024-10-08 12:53] VITALS: BP 138/72; PULSE 85; O2SAT 96; BMI 39.7
[2024-10-08 13:03] LABS: Glucose, Whole Blood 242 mg/dL (60-115)
--- OUTSIDE RECORDS SUMMARY | 2024-10-08 14:43 | XMS_ITS | Clinical Summary ---
Author Organization [employer] Address [address] [facility] 7t [place] [address] Care Team Providers Care Operator Engineer Name Role Phone Ventura Tavares MD [...] appears bluish ,regular borders -referred today to sales representative raw fibers Routine physical examination 04/19/2023 Assessment & Plan [...] Larry spoke with Dr. Cosme's office (her child health associate), pt was seen 12/27/2023. We notified the office that her scientific artist Dr. Silverio prescribes Lasix 20 mg 2 tabs po daily. Patient followed by Dr Cosme Creative Lead, Previous Stress Test and ECHO unremarkable. Last seen 07/03/2024. Assessment & Plan (05/15/2024 1:05 PM EDT): Seen initially by Dr Demarcus Larry with c/o LE edema and elevated BNP, CXR was unermarkable. Dr. Larry spoke with Dr. Cosme's office (her child health associate), pt was seen 12/27/2023. We notified the office that her scientific artist Dr. Silverio prescribes Lasix 20 mg 2 tabs po daily. Patient followed by Dr Cosme Creative Lead, Previous Stress Test and ECHO unremarkable. Last seen 12/27/2023. Assessment & Plan (09/22/2023 11:38 AM EST): Seen by Dr Demarcus Larry with c/o LE edema, referred to cardiology seen by Dr Cosme Creative Lead, Stress Test and ECHO unremarkable Assessment & Plan (01/18/2023 10:50 AM EDT): Seen by Dr Demarcus Larry with c/o LE edema, referred to cardiology seen by Dr Csome 01/06/2023 ECHO ordered [facility] care 01/18/2023 Assessment & Plan (09/04/2024 2:05 [...] 2:14 PM EST): Seeing Trinh Su at [facility] Hyperlipidemia 04/06/2012 Assessment & Plan (09/04/2024 2:05 [...] Plan: As per Endocrinology Eye exam with Marketing Developer [facility] diagnosed with Dr. both eyes. Last seen 12/06/2023 Pt does not adhere to a diabetic diet, does not want to go any higher on her insulin dose as it was recommended by her Package Dye Stand Loader. Pt advised to Adhere to diabetic diet [...] Plan: As per Endocrinology Eye exam with Marketing Developer [facility] 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 Last seen 12/06/2023 Pt does not adhere to a diabetic diet, does not want to go any higher on her insulin dose as it was recommended by her Package Dye Stand Loader. Pt advised to Adhere to diabetic diet [...] 81 mg po daily. Eye exam with Marketing Developer [facility] diagnosed with DR both eyes 10/26/2016 Pt does not adhere to a diabetic diet, does not want to go any higher on her insulin dose as it was recommended by her Package Dye Stand Loader. Pt advised to Adhere to diabetic diet [...] 81 mg po daily. Eye exam with Marketing Developer [facility] diagnosed with DR both eyes 10/26/2016 Pt does not adhere to a diabetic diet, does not want to go any higher on her insulin dose as it was recommended by her Package Dye Stand Loader. Pt advised to Adhere to diabetic diet [...] 81 mg po daily. Eye exam with Marketing Developer [facility] diagnosed with DR both eyes 10/26/2016 Pt does not adhere to a diabetic diet, does not want to go any higher on her insulin dose as it was recommended by her Package Dye Stand Loader. Pt advised to Adhere to diabetic diet [...] 81 mg po daily. Eye exam with Marketing Developer [facility] diagnosed with DR both eyes 10/26/2016 Pt does not adhere to a diabetic diet, does not want to go any higher on her insulin dose as it was recommended by her Package Dye Stand Loader. Pt advised to Adhere to diabetic diet [...] 81 mg po daily. Eye exam with Marketing Developer [facility] diagnosed with DR both eyes 10/26/2016 Pt does not adhere to a diabetic diet, does not want to go any higher on her insulin dose as it was recommended by her Package Dye Stand Loader. Pt advised to Adhere to diabetic diet [...] Encounters Date Type Department Care Team Description 10/08/2024 Orders Only GENERIC EXTERNAL DATA DEPARTMENT Provider, Generic External Data 09/21/2024 Orders Only GENERIC EXTERNAL DATA DEPARTMENT Provider, Generic External Data 09/04/2024 2:15 PM EST Office Visit [facility] [address] [place] [address] Ventura Tavares MD Hyperkalemia (Primary Dx); Type 2 diabetes mellitus with stage 3a chronic kidney disease, with long-term current use of insulin ([facility]); [place] (dyspnea on exertion); Primary hypertension; Stage 3a chronic kidney disease ([facility]); Preventative health care; Mixed hyperlipidemia; 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 ([facility]); Depressive disorder; Lactose intolerance 09/04/2024 Travel 08/27/2024 Telephone [facility] [address] [facility] [place] [address] Ventura Tavares MD Error (VOID this visit) 08/21/2024 Refill [facility] [address] [facility] [place] [address] Ventura Tavares MD Pain 08/15/2024 Telephone [facility] [address] [facility] [place] [address] Ventura Tavares MD Appointment Confirmation 08/01/2024 Telephone [facility] [address] [facility] [place] [address] Ventura Tavares MD Chart Prep 07/26/2024 8:40 AM EST Office Visit [facility] [address] [facility] [place] [address] Trung Wu MD Greater trochanteric bursitis of left hip (Primary Dx) 07/10/2024 2:30 PM EST Telemedicine [facility] [address] [facility] [place] [address] Chelsy Dickson, RyderD Type 2 diabetes mellitus with stage 3a chronic kidney disease, with long-term current use of insulin ([facility]) (Primary Dx); Primary hypertension from Last 3 Months Immunizations Name Administration [...] Description 12/04/2024 10:15 AM EDT Office Visit [facility] [address] [place] [address] Ventura Tavares MD [address] [place] [address] Health Maintenance Due Date Last Done Comments [...] 05/15/2025 05/15/2024 Depression Screening 05/15/2025 05/15/2024, 05/15/20 SDOH Screening 05/15/2025 05/15/2024 Colonoscopy 09/01/2025 09/01/2015 [...] Associated Diagnosis Comments GLUCOSE, WHOLE BLOOD Routine 10/08/2024 12:59 PM EDT GLUCOSE, WHOLE BLOOD Routine 09/21/2024 1:07 PM EST POCT GLYCATED HEMOGLOBIN, TOTAL Routine 09/04/2024 2:05 PM EST Type 2 diabetes mellitus with stage 3a chronic kidney disease, with long-term current use of insulin ([facility]) POCT GLUCOSE Routine 09/04/2024 2:01 PM EST Type 2 diabetes mellitus with stage 3a chronic kidney disease, with long-term current use of insulin ([facility]) BI MAMMOGRAM SCREENING TOMOSYNTHESIS BILATERAL Routine 10/24/2023 12:40 PM EDT LIPID PANEL, STANDARD Routine 09/30/2023 8:11 AM EST HM COLONOSCOPY Routine 09/01/2015 from Last 3 Months or Most Recently Relevant to Health Maintenance Results * (ABNORMAL) Glucose, Whole Blood (10/08/2024 12:59 PM EDT) Only the most recent of2 resultswithin the time period is included. Glucose, Whole Blood 242(H) 60 - 115 mg/dL [facility] Comment:METER #: [id number] Testing performed in the Endocrinology Department [address] , [address], [facility]. 10/08/2024 12:5 9 PM EDT 10/08/2024 1:02 PM EDT us Generic External Data Provider LAB BLOOD ORDERAB LES Final Result [facility] [address] [place] [phone] * (ABNORMAL) POCT HGB A1C (09/04/2024 2:05 PM EST) Hemoglobin A1C 9.0(A) 4.0 - 6.0 % QC Media Lot # [id number] Lot# Expiration Date ,026 Blood 09/04/2024 2:05 PM EST Ventura Maldonado MD POINT OF CARE TEST EN TER/EDIT ORDERABLES Final Result * (ABNORMAL) POCT Glucose (09/04/2024 2:01 PM EST) Glucose Blood, POC 283(A) 60 - 200 mg/dL QC Media Lot # [id number] Lot# Expiration Date 172,025 Blood Capillary blood specimen / Unknown 09/04/2024 2:01 PM EST Ventura Maldonado MD POINT OF CARE TEST EN TER/EDIT ORDERABLES Final Result * BI Mammogram Screening Tomosynthesis Bilateral (10/24/2023 12:40 PM EDT) Anatomical Region Laterality Modality Breast Bilateral Mammography 10/24/2023 12:4 0 PM EDT Narrative 11/06/2023 3:28 PM EDT ? [facility] [place] ? [address] ?[place] [id number] ? Mammography Report ? Signed ? Patient: Sindi Obrien ?MR#: M ?? [id number] ? : 1950 ?Acct:[id number] ? Age/Sex: 72 / F ?ADM Date: 04//24 ? Loc: HO.MAMMO ? Attending Dr: Ventura Shi MD ? Ordering Physician: Ventura Shi MD ?Resu ?? lts: 2Benign Findings ? Date of Service: 10/24/23 ?Follow Up: 1 Year From Orig ?? inal Mammogram ? Procedure(s): MM tomosynthesis screening BI ?? Accession Number(s): [id number] ? cc: Ventura Shi MD ? EXAMINATION: [...] by Hyacinth Moeller MD in OV> ? 04/14/24 1525 ? DD/ 1240 ? TD/TT: ? Manager Appointment: ? Procedure Note Donotuseinterpreter, Image - 11/06/2023 [facility] [address] [place], [place] [address] Mammography Report Signed Patient: Sindi ObrienMR#: M [id number] : 2Acct:[id number] Age/Sex: 72 / FADM Date: 10/24/23 Loc: HO.MAMMO Attending Dr: Ventura Shi MD Ordering Physician: Ventura Shi MDResu lts: 2Benign Findings Date of Service: 10/24/23Follow Up: 1 Year From Orig inal Mammogram Procedure(s): MM tomosynthesis screening BI Accession Number(s): [id number] cc: Ventura Shi MD EXAMINATION: MM SCREENING [...] in OV> 11/06/23 1525 DD/ 1240 TD/TT: Manager Appointment: us Ventura Maldonado MD IMG BI PROCEDURES Ortiz cesar Result - Final * Lipid Panel, Standard (09/30/2023 8:11 AM EST) Triglycerides 50 <150 mg/dL [facility] Comment:Desirable Triglyceri de: less than 150 mg/dLBorderline High Triglyceride 150-199 mg/dLHigh Triglyceride: 200-499 mg/dLVery High Triglyceride: greater than or equal to 5OO mg/dL Cholesterol 143 <200 mg/dL [facility] Comment:Desirable Cholestero l: less than 200 mg/dLBorderline High Cholesterol: 200-239 mg/dLHigh Cholesterol: greater than 239 mg/dL LDL Cholesterol Calculated 64 <100 mg/dL [facility] Comment:Desirable LDL: less than 100 mg/dLNear Optimal/Above Optimal LDL: 110- 129 mg/dLBorderline High LDL: 130-159 mg/dLHigh LDL: 160-189 mg/dLVery High LDL: greater than or equal to 190 mg/dL HDL Cholesterol 69 >40 mg/dL [facility] Comment:Desirable HDL: great er than 40 mg/dL Note: This HDL assay may give artificially low results in patients with liver disease. 09/30/2023 8:11 AM EST 09/30/2023 8:11 AM EST us Generic External Data Provider LAB BLOOD ORDERAB LES Final Result [facility] [address] [place] [phone] * Colonoscopy (09/01/2015) Colonoscopy Normal Normal 09/01/2015 Brittany Patel - 09/01/2015 11:54 AM EST Recommended 10 year follow up us Historical Provider HEALTH MAINTENANCE Edited Result - Final from Last 3 Months or Most Recently Relevant to Health Maintenance Insurance [facility] Care Teams Operator Engineer Relationship Specialty Start Date End Date Ventura Tavares MD [address] [place] [address] PCP - General Internal Medicine 03/11/14
--- OUTSIDE RECORDS SUMMARY | 2024-10-08 14:44 | XMS_ITS | Encounter Summary ---
Author Organization [facility] [facility] Address [address] 7t [place] [address] Care Team Providers Care Power Electronics Research Engineer Name Role Phone Ventura Tavares MD Primary Care Provide r Encounter Details Date Type Department Care Team (Late st Contact Info) Description 10/08/2024 Orders Only GENERIC EXTERNAL DATA [...] Upcoming Encounters Date Type Department Care Team ([facility] st Contact Info) Description 12/04/2024 10:15 AM EDT Office Visit [facility] [address] [place] [address] Ventura Tavares MD [address] [place] [address] documented as of this encounter Procedures Procedure Name Priority Date/Time Associated Diagnosis Comments GLUCOSE, WHOLE BLOOD Routine 10/08/2024 12:59 PM EDT documented in this encounter Results * (ABNORMAL) Glucose, Whole Blood (10/08/2024 12:59 PM EDT) Glucose, Whole Blood 242(H) 60 - 115 mg/dL [facility] Comment:METER #: [id number] Testing performed in the Endocrinology Department [address] , [address], [facility]. 10/08/2024 12:5 9 PM EDT 10/08/2024 1:02 PM EDT us Generic External Data Provider LAB BLOOD ORDERAB LES Final Result [facility] [address] [place] [address] [phone] documented in this encounter Visit Diagnoses Not on filedocumented in this encounter Additional Health Concerns Assessment Noted Time PHQ-9 Depression Total Score: 0 05/15/20 24 10:57 AM EDT documented as of this encounter Care Teams Power Electronics Research Engineer Relationship Specialty Start Date End Date Ventura Tavares MD [address] [place] [address] PCP - General Internal Medicine 03/11/14 documented as of this encounter
--- OUTSIDE RECORDS SUMMARY | 2024-10-08 14:44 | XMS_ITS | Encounter Summary ---
Author Organization [employer] [facility] Address [address] [facility] 7t [place] [address] Care Team Providers Care Circulation Representative Name Role Phone Ventura Tavaers MD Primary Care Provide r Reason for Visit * Reason Comments Med Refill Encounter Details Date Type Department Care Team ([facility] Contact Info) Description 02/24/2023 Refill [facility] [address] [place] [address] Ventura Tavares MD [address] [place] [address] Pain Social History Tobacco Use Types Packs/Day [...] Upcoming Encounters Date Type Department Care Team ([facility] Contact Info) Description 12/04/2024 10:15 AM EDT Office Visit [facility] [address] [place] [address] Ventura Tavares MD [address] [place] [address] documented as of this encounter Visit Diagnoses Diagnosis Pain Generalized pain documented in this encounter Additional Health Concerns Assessment Noted Time PHQ-9 Depression Total Score: 12 023 10:55 AM EDT documented as of this encounter Care Teams Circulation Representative Relationship Specialty Start Date End Date Ventura Tavares MD [address] [place] [address] PCP - General Internal Medicine 03/11/14 documented as of this encounter
--- OUTSIDE RECORDS SUMMARY | 2024-10-08 14:44 | XMS_ITS | Encounter Summary ---
Author Organization [employer] [facility] Address [address] [facility] 7t [place] [address] Care Team Providers Care Vegetable Ii Farmworker Name Role Phone Ventura Tavares MD Primary Care Provide r Reason for Visit * Reason Onset Date Comments ER Follow-up 10/25/2022 Encounter Details Date Type Department Care Team ([facility] st Contact Info) Description 10/25/[address] [facility] [address] [place] [address] Ventura Tavares MD [address] [place], [place] [phone] ER Follow-up Social History Tobacco Use Types [...] to report ED visit on 10/25/22 at [facility]. Diagnosed with fall. Patient advised will forward to team nurse for follow up. documented in this encounter Plan of Treatment Upcoming Encounters Date Type Department Care Team (Late st Contact Info) Description 12/04/2024 10:15 [address] EDT [address] [facility] [address] [place] [address] Ventura Tavares MD [address] [place] [address] documented as of this encounter Visit Diagnoses Not on filedocumented in this encounter Care Teams Vegetable Ii Farmworker Relationship Specialty Start Date End Date Ventura [place] [address] PCP - General Internal Medicine 03/11/14 documented as of this encounter
--- OUTSIDE RECORDS SUMMARY | 2024-10-08 14:44 | XMS_ITS | Encounter Summary ---
Author Organization [employer] [facility] Address [address] [facility] 7t [place] [address] Care Team Providers Care Public Address Servicer Name Role Phone Ventura Tavares MD Primary Care Provide r Encounter Details Date Type Department Care Team (Late Contact Info) Description 12/01/2022 Abstract [facility] [address] [place] [address] [phone] Ventura Tavares MD [address] [place] [address] [phone] Social History Tobacco Use Types Packs/Day Years [...] Description 12/04/2024 10:15 AM EDT Office Visit [facility] [address] [place] [address] [phone] Ventura Tavares MD [address] [place] [address] [phone] documented as of this encounter Procedures Procedure Name Priority Date/Time Associated Diagnosis Comments HM COLONOSCOPY Routine 09/01/2015 documented in this encounter Results * Colonoscopy (09/01/2015) Colonoscopy Normal Normal 09/01/2015 Brittany Patel - 09/01/2015 11:54 AM EST Recommended 10 year follow up us Historical Provider [facility] Edited Result - Final documented in this encounter Visit Diagnoses Not on filedocumented in this encounter Care Teams Public Address Servicer Relationship Specialty Start Date End Date Ventura Tavares MD [address] [place] [address] PCP - General Internal Medicine 03/11/14 documented as of this encounter
--- OUTSIDE RECORDS SUMMARY | 2024-10-08 14:44 | XMS_ITS | Encounter Summary ---
Author Organization [facility] Address [address] [facility] [address] 7t [place] [address] Care Team Providers Care Crawler Tractor Operator Name Role Phone Ventura Tavares MD [...] Upcoming Encounters Date Type Department Care Team ([facility] st Contact Info) Description 12/04/2024 10:15 AM EDT Office Visit [facility] [address] [place] [address] Ventura Tavares MD [address] [place] [address] documented as of this encounter Procedures Procedure Name Priority Date/Time Associated Diagnosis Comments GLUCOSE, WHOLE BLOOD Routine 09/21/2024 1:07 PM EST documented in this encounter Results * (ABNORMAL) Glucose, Whole Blood (09/21/2024 1:07 PM EST) Glucose, Whole Blood 142(H) 60 - 115 mg/dL [facility] Comment:METER #: [id number] 5Testing performed in the Endocrinology Department [address] , [address], [facility]. 09/21/2024 1:07 PM EST 09/21/2024 1:11 PM EST us Generic External Data Provider LAB BLOOD ORDERAB LES Final Result [facility] [address] [place] [phone] documented in this encounter Visit Diagnoses Not on filedocumented in this encounter Additional Health Concerns Assessment Noted Time PHQ-9 Depression Total Score: 0 05/15/20 24 10:57 AM EDT documented as of this encounter Care Teams Crawler Tractor Operator Relationship Specialty Start Date End Date Ventura Tavares MD [address] [place] [phone] PCP - General Internal Medicine 03/11/14 documented as of this encounter
--- OUTSIDE RECORDS SUMMARY | 2024-10-08 14:44 | XMS_ITS | Encounter Summary ---
Author Organization [email or web address] Address [address] [facility] [address] [place] [address] Care Team Providers Care Provider Education Specialist Name Role Phone Ventura Tavares MD Primary Care Provide r Encounter Details Date Type Department Care Team ([facility] st Contact Info) Description 07/05/2023 Telephone [facility] [address] [place], [place] [phone] Ventura Tavares MD [address] [place] [address] Social History Tobacco Use Types Packs/Day Years [...] 07/05/2023 2:11 PM EST Tc from farzad (PAINTING CONTRACTOR) with [employer] calling to advise provider, a home assessment was done on behalf of [employer]and pt A1C came out to be 10.8 Any questions, contact Farzad at [phone] documented in this encounter Plan of Treatment Upcoming Encounters Date Type Department Care Team (Late st Contact Info) Description 12/04/2024 10:15 AM EDT Office Visit [facility] [address] [place], [place] [phone] Ventura Tavares MD [address] [place] [address] documented as of this encounter Visit Diagnoses Not on filedocumented in this encounter Additional Health Concerns Assessment Noted Time PHQ-9 Depression Total Score: 12 023 10:55 AM EDT documented as of this encounter Care Teams Provider Education Specialist Relationship Specialty Start Date End Date Ventura Tavares MD [address] [place], [place] [phone] PCP - General Internal Medicine 03/11/14 documented as of this encounter
--- OUTSIDE RECORDS SUMMARY | 2024-10-08 14:44 | XMS_ITS | Encounter Summary ---
Author Organization [employer] [facility] Address [address] [place] [address] 7t [place] [address] Care Team Providers Care Dials Inspector Name Role Phone Ventura Tavares MD Primary Care Provide r Encounter Details Date Type Department Care Team (Late st Contact Info) Description 07/09/2022 [facility] Information Management [address] [place], [place] [phone] Ventura Tavares MD [address] [place], [place] [phone] Social History Tobacco Use Types Packs/Day Years [...] 10:15 AM EDT Office Visit [facility] [address] [place], [place] [phone] Ventura Tavares MD [address] [place], [place] [phone] documented as of this encounter Procedures Procedure [...] (09/06/2022 10:34 AM EST) Color Urine Yellow [facility] Appearance Urine Clear [facility] PH 7.5 5.0 - 9.0 [facility] Glucose Urine UA 100(A) Negative mg/dL [facility] Urine Blood Negative Negative [facility] Specific [place] - Urine 1.020 1.005 - 1.025 [facility] Urine Protein 100 (2+)(A) Neg-Trace mg/dL [facility] Urine Ketones Negative Negative mg/dL [facility] Nitrite Urine Negative Negative [facility] Leukocyte Esterase Urine Negative Negative [facility] RBC Urine 0-2 0 - 2 /HPF [facility] Urine WBC 0-5 0 - 5 /HPF [facility] Urine Squamous Epithelial Cell 6-10 0 - 2 /HPF [facility] Urine Bacteria None Seen None Seen [facility] Hyaline Casts, Urine 0-2 0 - 2 /LPF [facility] 09/06/2022 10:3 4 AM EST 09/06/2022 10:38 AM EST [facility] - 09/06/2022 10:51 AM EST [id number], [facility] External Provider LAB URI NE ORDERABLES Final Result Performing Organization Address [facility] de Phone Number [facility] [address] [place] [address] [phone] * (ABNORMAL) Urinalysis with reflex microscopic (09/06/2022 10:34 AM EST) Color Urine Yellow [facility] Appearance Urine Clear [facility] PH 7.5 5.0 - 9.0 [facility] Glucose Urine UA 100(A) Negative mg/dL [facility] Urine Blood Negative Negative [facility] Specific [place] - Urine 1.020 1.005 - 1.025 [facility] Urine Protein 100 (2+)(A) Neg-Trace mg/dL [facility] Urine Ketones Negative Negative mg/dL [facility] Nitrite Urine Negative Negative [facility] Leukocyte Esterase Urine Negative Negative [facility] 09/06/2022 10:3 4 AM EST 09/06/2022 10:38 AM EST [facility] - 09/06/2022 10:45 AM EST [id number], [facility] External Provider LAB URI NE ORDERABLES Final Result Performing Organization Address [facility] Co de Phone Number [facility] [address] [place] [address] [phone] * (ABNORMAL) Comprehensive Metabolic Panel (09/06/2022 10:27 AM EST) Sodium 139 135 - 145 mmol/L [facility] Potassium 5.1 3.3 - 5.1 mmol/L [facility] Chloride 103 96 - 108 mmol/L [facility] Carbon Dioxide 29 22 - 29 mmol/L [facility] Anion Gap 12 12 - 20 [facility] Urea Nitrogen (BUN) 36(H) 9 - 16 mg/dL [facility] Creatinine, Serum 1.47(H) 0.5 - 1.4 mg/dL [facility] Creatinine Clr Calc Pharmacy 27.5 [facility] Comment:Provided height and weight: 134.62 cm,78.018 kg.eGFR (calculated from the MDRD study equation) and eCrCl(calculated from the Cockcroft-Gault equation) are based ondifferent parameters and may not yield comparable results.If eCrCl result is absurd, please check patient'sheight/weight. Estimated Glomerular Filt Rate 35 [facility] Comment:NOTE: For -Am erican individuals, multiply the result by 1.210.Chronic Kidney Disease: Estimated GFR < 60 mL/min/[id number] Kidney Disease: Estimated GFR < 15 mL/min/1.73m2 Glucose 190(H) 60 - 115 mg/dL [facility] Calcium 9.4 8.4 - 10.2 mg/dL [facility] Bilirubin, Total 0.6 0.0 - 1.0 mg/dL [facility] Aspartate Amino Transferase 18 5 - 31 U/L [facility] Alanine Aminotransferase 16 0 - 31 U/L [facility] Total Protein 6.9 6.5 - 8.0 g/dL [facility] Albumin Level 4.0 3.5 - 5.0 g/dL [facility] Alkaline Phosphatase 105 39 - 117 U/L [facility] 09/06/2022 10:2 7 AM EST 09/06/2022 10:31 AM EST us [facility] External Provider LAB BLO OD ORDERABLES Final Result [facility] [address] [place] [address] [phone] * (ABNORMAL) CBC auto differential (09/06/2022 10:27 AM EST) White Blood Count 6.5 4.8 - 10.8 X10*3/uL [facility] Red Blood Count 3.99(L) 4.20 - 5.50 X10*6/uL [facility] Hemoglobin 12.0 12.0 - 16.0 g/dl [facility] Hematocrit 36.2(L) 37.0 - 47.0 % [facility] Mean Corpuscular Volume 90.7 80.0 - 98.0 fL [facility] Mean Corpuscular Hemoglobin 30.1 27.0 - 33.0 pg [facility] Mean Corpuscular HGB Conc 33.1 31.0 - 35.0 g/dl [facility] Red Cell Distribution Width 11.6 11.0 - 16.0 % [facility] Platelet Count 194 160 - 400 X10*3/uL [facility] Mean Platelet Volume 10.6 9.4 - 12.3 fL [facility] Neutrophils Percent Auto 64.0 45 - 73 % [facility] Imm Gran Pct Auto 0.3 0.0 - 0.4 % [facility] Lymphocytes Percent Auto 22.6 20 - 40 % [facility] Monocytes Percent Auto 7.9 2 - 11 % [facility] Eosinophils Percent Auto 4.7(H) 0 - 4 % [facility] Basophils Percent Auto 0.5 0 - 2 % [facility] NRBC Pct Auto 0.0 0.0 - 0.2 /100WBC [facility] Neutrophils Absolute Auto 4.1 2.0 - 8.3 x10*3/uL [facility] Imm Gran Abs Auto 0.02 0.00 - 0.03 X10*3/uL [facility] Lymphocytes Absolute Auto 1.5 1.2 - 4.9 X10*3/uL [facility] Monocytes Absolute Auto 0.5 0.1 - 1.2 X10*3/uL [facility] Eosinophils Absolute Auto 0.3 0.0 - 0.4 X10*3/uL [facility] Basophils Absolute Auto 0.0 0.0 - 0.2 X10*3/uL [facility] NRBC Abs Auto 0.000 0.0 - 0.012 X10*3/uL [facility] 09/06/2022 10:2 7 AM EST 09/06/2022 10:31 AM EST [facility] External Provider LAB BLO OD ORDERABLES Final Result Performing Organization Address [facility] Phone Number [facility] [address] [place] [phone] * Calcium (08/03/2022 8:15 AM EST) Calcium 9.2 8.4 - 10.2 mg/dL [facility] 08/03/2022 8:15 AM EST 08/03/2022 10:30 AM EST [facility] External Provider LAB BLO OD ORDERABLES Final Result Performing Organization Address [facility] Number [facility] [address] [place] [phone] * (ABNORMAL) Creatinine, Serum (08/03/2022 8:15 AM EST) Creatinine, Serum 1.54(H) 0.5 - 1.4 mg/dL [facility] Estimated Glomerular Filt Rate 33 [facility] Comment:NOTE: For -Am erican individuals, multiply the result by 1.210.Chronic Kidney Disease: Estimated GFR < 60 mL/min/1.03e5Knxmpb Kidney Disease: Estimated GFR < 15 mL/min/1.73m2 08/03/2022 8:15 AM EST 08/03/2022 10:30 AM EST [facility] External Provider LAB BLO OD ORDERABLES Final Result Performing Organization Address [facility] Co de Phone Number [facility] [address] [place] [phone] * (ABNORMAL) BUN (Blood Urea Nitrogen) (08/03/2022 8:15 AM EST) Urea Nitrogen (BUN) 39(H) 9 - 16 mg/dL [facility] 08/03/2022 8:15 AM EST 08/03/2022 10:30 AM EST [facility] External Provider LAB BLO OD ORDERABLES Final Result Performing Organization Address [facility] Co de Phone Number [facility] [address] [place] [address] [phone] * (ABNORMAL) Electrolyte Panel (08/03/2022 8:15 AM EST) Sodium 140 135 - 145 mmol/L [facility] Potassium 5.5(H) 3.3 - 5.1 mmol/L [facility] Chloride 106 96 - 108 mmol/L [facility] Carbon Dioxide 28 22 - 29 mmol/L [facility] Anion Gap 12 12 - 20 [facility] 08/03/2022 8:15 AM EST 08/03/2022 10:30 AM EST [facility] External Provider LAB BLO OD ORDERABLES Final Result Performing Organization Address [facility] de Phone Number [facility] [address] [place] [phone] documented in this encounter Visit Diagnoses Not on filedocumented in this encounter Care Teams Dials Inspector Relationship Specialty Start Date End Date Ventura Tavares MD [address] [place] [phone] PCP - General Internal Medicine 03/11/14 documented as of this encounter
--- OUTSIDE RECORDS SUMMARY | 2024-10-08 14:44 | XMS_ITS | Encounter Summary ---
Author Organization [employer] [facility] Address [address] [facility] 7t [place] [address] Care Team Providers Care Certified Medical Dosimetrist Name Role Phone Ventura Tavares MD Primary Care Provide r Encounter Details Date Type Department Care Team ([facility] Contact Info) Description 04/07/2023 Telephone [facility] [address] [place] [address] [phone] Ventura Tavares MD [address] [place] [phone] Social History Tobacco Use Types Packs/Day Years [...] Upcoming Encounters Date Type Department Care Team ([facility] Contact Info) Description 12/04/2024 10:15 AM EDT Office Visit [facility] [address] [place] [phone] Ventura Tavares MD [address] [place] [address] documented as of this encounter Visit Diagnoses Not on filedocumented in this encounter Additional Health Concerns Assessment Noted Time PHQ-9 Depression Total Score: 12 12/21/ 023 10:55 AM EDT documented as of this encounter Care Teams Certified Medical Dosimetrist Relationship Specialty Start Date End Date Ventura Tavares MD [address] [place] [address] PCP - General Internal Medicine 03/11/14 documented as of this encounter
--- OUTSIDE RECORDS SUMMARY | 2024-10-08 14:44 | XMS_ITS | Encounter Summary ---
Author Organization [employer] Address [address] 7t [place] [address] Care Team Providers Care Candlemaking Laborer Name Role Phone Ventura Tavares MD Primary Care Provide r Encounter Details Date Type Department Care Team ([facility] st Contact Info) Description 01/04/2023 Orders Only [facility] [address] [place] [address] Aime Bland MD [address] [place] [address] Dyspnea, unspecified type (Primary Dx) Social History [...] Description 12/04/2024 10:15 AM EDT Office Visit [facility] [address] [place] [address] Ventura Tavares MD [address] [place] [address] Scheduled Orders Name Type Priority Associated Diagnoses [...] PM EDT Narrative 01/04/2023 2:57 PM EDT ?[facility] ?[address] ?[place] [address] ?XRay Report ? Signed ? Patient: Sindi Obrien ?MR#: [id number] ?? [id number] ? : 1950 ?Acct:[id number] ? Age/Sex: 72 / F ?ADM Date: 01/04/23 ? Loc: HO.HHCX ? Attending Dr: Aime Bland MD ? Ordering Physician: AIME BLAND MD ?? Date of Service: 01/04/23 ?? Procedure(s): XR chest 2V ?? Accession Number(s): [id number] ? cc: AIME BLAND MD ? EXAMINATION: [...] ?01/04/23 ? DD/ 19 ? TD/TT: ? Assistant Media Planner: HERSON ? Procedure Note Donotniainterpreter, Image - 01/19/2023 [facility] [address] [place] [address] XRay Report Signed Patient: Sindi ObirenMR#: [id number] : 2Acct:[id number] Age/Sex: 72 / FADM Date: 01/04/23 Loc: HO.HHCX Attending Dr: Aime Bland MD Ordering Physician: AIME BLAND MD Date of Service: 01/04/23 Procedure(s): XR chest 2V Accession Number(s): [id number] cc: AIME BLAND MD EXAMINATION: XR CHEST [...] in OV> 01/04/23 1454 DD/ 1420 TD/TT: Assistant Media Planner: HERSON [facility] External Provider IMG XR PROCEDURES Final Result documented in this encounter Visit Diagnoses Diagnosis Dyspnea, unspecified type- Primary documented in this encounter Additional Health Concerns Assessment Noted Time PHQ-9 Depression Total Score: 12 023 10:55 AM EDT documented as of this encounter Care Teams Candlemaking Laborer Relationship Specialty Start Date End Date Ventura Tavares MD [address] [place] [address] PCP - General Internal Medicine 03/11/14 documented as of this encounter
--- OUTSIDE RECORDS SUMMARY | 2024-10-08 14:44 | XMS_ITS | Encounter Summary ---
Author Organization [employer] Address [address] [facility] 7t [place] [address] Care Team Providers Care Grapple Skidder Operator Name Role Phone Ventura Tavares MD Primary Care Provide r Encounter Details Date Type Department Care Team ([facility] Contact Info) Description 09/20/2022 Orders Only [facility] [address] [place], [place] [phone] Terra Hannon LPN Social History Tobacco Use [...] Upcoming Encounters Date Type Department Care Team ([facility] Contact Info) Description 12/04/2024 10:15 AM EDT Office Visit [facility] MEDICINE [address] [place], [place] [phone] Ventura Tavares MD [address] [place], [place] [phone] documented as of this encounter Visit Diagnoses Not on filedocumented in this encounter Care Teams Grapple Skidder Operator Relationship Specialty Start Date End Date Ventura Tavares MD [address] [place] [phone] PCP - General Internal Medicine 03/11/14 documented as of this encounter
--- OUTSIDE RECORDS SUMMARY | 2024-10-08 14:44 | XMS_ITS | Patient Health Record ---
Author Organization [facility] Address [address] [place] [address] Care Team Providers Care Horticultural Farmworker Name Role Phone Zeus Maldonado MD, Ventura Primary Care Provide Castillo Cash Unavailable [phone] Allergies Allergen (clinical drug ingredient) Drug/Non Drug Allergy documented on EMR Reaction Allergy Type Onset Date Status Glucophage Unknown Drug Allergy Active Reason For Referral No Information Medications Medication SIG (Take, Route, Frequency, Duration) Notes [...] for 30 days 10/13/2022 Active Vitamin D3 81596 UNIT 1 tablet Orally On ce a [...] pm Active HumaLOG 100 UNIT/ML Subcutaneous Active Immunizations Vaccine Route Administration Date Status Comme nts Influenza Unknown 03/25/2020 Administered Influenza Unknown 05/11/2022 Administered Problems Problem Type SNOMED Code ICD Code Onset Dates Problem Status W/U Status Risk Notes Problem Epigastric pain (67625231) Epigastric abdominal pain (R10.13) Active confirmed Problem 482863460 Encounter for screening for malignant neoplasm of colon (Z12.11) Active confirmed Problem Screening for malignant neoplasm of rectum (582964417) Encounter for screening for malignant neoplasm of rectum (Z12.12) Active confirmed Problem 820479645 Long-term use of aspirin therapy (Z79.82) Active confirmed Problem 85849826 Constipation, unspecified constipation type (K59.00) Active confirmed Problem Gastroesophageal reflux disease (849740113) GERD (gastroesophage al reflux disease) (K21.9) Active confirmed Problem Chronic constipation (058577808) Constipation, chronic (K59.00) Active confirmed Plan Of Treatment Pending Test Test Name Order Date US ABD 05/23/2020 TSH REFLEX FREE T4 10/13/2022 Future Test Test Name Order Date COLONOSCOPY 06/12/2015 UPPER GI ENDOSCOPY 05/23/2020 Insurance Providers Payer Name Payer Address Payer Phone Subscriber Number Group Number Insured Name Patient Relationship to Insured Coverage Start Date Coverage End Date [facility] [address] [place] [address] [id number] CARINE LOCKHART Self - patient is the insured Medical (General) History Medical History History ICD Code Screening colonoscopy 01/2005 and 08/2015--negative except for diverticulosis and internal hemorrhoids IDDM Hyperlipidemia Denies OR CVA > 10 yrs ago Asthma Chronic kidney disease state III-Dr. Hall iesarah HTN GERD Surgical History Surgery Date(Month/Year) Appendectomy Tubal ligation KATHARINA Cataracts and lens implants
--- OUTSIDE RECORDS SUMMARY | 2024-10-08 14:44 | XMS_ITS | Clinical Summary ---
Author Organization [facility] Address [address] [place] [address] [address] [place] [phone] Phone Care Team Providers Care Event Marketing Representative Name Role Phone Ventura Schulz MD Primary [...] & Plan: Improving Pt seen at our [facility] by Dr Demarcus Larry, [place] negative [...] patient's age to complete this topic Insurance [facility] MCR ([id number]) MAZIN SINGER [id number] [facility] MCR ([id number]) MAZIN SINGER [id number] Care Teams Event Marketing Representative Relationship Specialty Start Date End Date Ventura Schulz MD [address] [place] [phone] PCP - General 08/04/20
--- OUTSIDE RECORDS SUMMARY | 2024-10-08 14:44 | XMS_ITS | Encounter Summary ---
Author Organization [employer] Address [address] [facility] [address]t [place] [address] Care Team Providers Care Crystallizer Operator Name Role Phone Ventura Tavares MD Primary Care Provide r Encounter Details Date Type Department Care Team ([facility] Contact Info) Description 03/02/2023 Orders Only [facility] [address] [place] [address] Terra Hannon LPN Social History Tobacco Use [...] Office Visit [facility] [address] [place], [place] [phone] Ventura Tavares MD [address] [place], [place] [phone] documented as of this encounter Visit Diagnoses Not on filedocumented in this encounter Additional Health Concerns Assessment Noted Time PHQ-9 Depression Total Score: 12 023 10:55 AM EDT documented as of this encounter Care Teams Crystallizer Operator Relationship Specialty Start Date End Date Ventura Tavares MD [address] [place] [address] PCP - General Internal Medicine 03/11/14 documented as of this encounter
== END 2024-10-08 13:18 | disposition home or self-care (01) ==
LOC: HO.ENCR 12:42
PROVIDERS: PCP Internal Medicine; Visit Provider Physician Assistant
DX: E11.65 Type 2 diabetes mellitus with hyperglycemia (principal); E78.5 Hyperlipidemia, unspecified; I10 Essential (primary) hypertension; E66.01 Morbid (severe) obesity due to excess calories; Z68.41 Body mass index [BMI] 40.0-44.9, adult

== ENCOUNTER → 2024-10-08 12:42 | Outpatient (BNVA) | payer OTHER, SELFPAY | PROVIDERS: PCP Internal Medicine; Visit Provider Physician Assistant | DX: E11.65 Type 2 diabetes mellitus with hyperglycemia (principal); E78.5 Hyperlipidemia, unspecified; I10 Essential (primary) hypertension; E66.01 Morbid (severe) obesity due to excess calories; Z68.41 Body mass index [BMI] 40.0-44.9, adult; Z71.3 Dietary counseling and surveillance | CPT/HCPCS: 82947; 99212 ==

== ENCOUNTER 2024-10-22 07:24 | Outpatient (REF) | payer OTHER, SELFPAY ==
[2024-10-22 11:38] LABS: Anion Gap 10 (12-20); Blood Urea Nitrogen 50 mg/dL (9-16); Carbon Dioxide 29 mmol/L (22-29); Chloride 109 mmol/L (96-108); Estimated Glomerular Filt Rate 29; Potassium 4.8 mmol/L (3.3-5.1); Sodium 143 mmol/L (135-145)
== END 2024-10-22 07:25 | disposition home or self-care (01) ==
LOC: HO.10HDL 07:24
PROVIDERS: Visit Provider Internal Medicine Nephrology
DX: E11.22 Type 2 diabetes mellitus with diabetic chronic kidney disease (principal); N18.30 Chronic kidney disease, stage 3 unspecified; I10 Essential (primary) hypertension
CPT/HCPCS: 36415; 80051; 82565; 84520

== ENCOUNTER 2024-10-24 09:41 | Outpatient (AMB) | payer OTHER, SELFPAY ==
--- NOTE | 2024-10-24 10:04 | HO.NEPHOV_ITS ---
Vital Signs 10/24/24 10:08 Height 4 ft 5 in Weight 159 lb BMI 39.8 BP 140/70 H Blood Pressure Location Rt brachial Position Sitting Pulse 69 Pulse Source Pulse Oximeter Pulse Oximetry (%) 97 Oxygen Delivery Method Room Air Intake Visit Reasons: CKD- Conf w/daughter Rina Field Software Engineer Required: Yes Field Software Engineer Language: Social Economist Services: Field Software Engineer Offered & Declined [place] refused[place] Accompanied by: Daughter Allergies metformin [From GLUCOPHAGE] Adverse Reaction (Unknown, Verified 10/24/24 10:07) DIARRHEA HPI Comments Details: Sindi was seen in follow-up of her chronic kidney disease due to biopsy-proven diabetic nephropathy. Her blood sugar control has been better with weight loss on Trulicity.. She has history of cerebrovascular accident. She has hypertension. She had no deficits from CVA. Blood pressure is better controlled. She has not good with her diet and weight loss. She denies using any nonsteroidal anti-inflammatories but consumes normal sodium and has a normal diet. she was on angiotensin receptor claude in the past which she did not tolerate very well. She denies chest pain, shortness of breath, paroxysmal nocturnal dyspnea, orthopnea, pedal edema, urinary symptoms or orthostasis. She tries to maintain herself with good hydration. She has been having facial swelling and pedal edema which resolved with diuresis. She is not very compliant with low sodium diet. She has been on losartan which has been put on hold since she has been having hyperkalemia. She has been on Kayexalate once a week. [facility] Medical History Snoring Dyspnea on exertion PB (obstructive sleep apnea) Hypoxemia Breast calcification, right Obesity due to excess calories Peripheral nerve facial nerve paralysis History of CVA (cerebrovascular accident) GERD (gastroesophageal reflux disease) Asthma Morbid obesity Hypertension CKD stage 3 due to type 2 diabetes mellitus snf (current) use of insulin Diabetic nephropathy associated with type 2 diabetes mellitus Dyslipidemia Diabetes type 2, uncontrolled Surgical History Hx of tubal ligation Hx of bilateral cataract extraction Hx of hysterectomy History of appendectomy Family History Father Cancer Mother Diabetes mellitus Social History Household Members: None Housing: Apartment Do you presently have visiting nurse or other home services: Yes Alcohol intake: never Patient Tobacco Use Status: Never used Tobacco Second Hand Smoke Exposure: No Advance Directives Date on File: 11/26/20 service: No Current occupational status: disabled Current occupation: rt handed Female Reproductive History Menstrual Age of Menarche: 12 Review of Systems Const All systems reviewed & are unremarkable except as noted in HPI and below Physical Exam Vital Signs: Last Vital Signs Pulse 69 10/24/24 10:08 BP 140/70 H 10/24/24 10:08 Pulse Ox 97 10/24/24 10:08 Oxygen Delivery Method Room Air 10/24/24 10:08 BMI result Body Mass Index 39.8 Const General: comfortable and no acute distress Orientation/consciousness: patient oriented x3 HEENT Head: Yes normocephalic Mouth: Normal oral and palatal mucosa present Eyes EOM: EOMs intact bilaterally Neck Neck: Yes supple Resp Auscultation: clear to auscultation bilaterally Cardio Jugular venous distension: no JVD Rate: regular rate GI Palpation (GI): Soft to palpation Auscultation: normal bowel sounds General: Yes no CVA tenderness Back/Spine/Pelvis Back: no CVA tenderness Skin General skin exam: no rashes or lesions noted Neuro General: patient oriented x3 and moves all extremities Extrem General: Yes no pedal edema Results Reviewed Nephrology Results: Sodium 143 mmol/L (135-145) 10/22/24 Potassium 4.8 mmol/L (3.3-5.1) 10/22/24 Chloride 109 mmol/L (96-108) H 10/22/24 Carbon Dioxide 29 mmol/L (22-29) 10/22/24 BUN 50 mg/dL (9-16) H 10/22/24 Creatinine 1.71 mg/dL (0.5-1.4) H 10/22/24 Calcium 9.0 mg/dL (8.4-10.2) 09/03/24 Assessment & Plan Assessment & Plan (1) CKD stage 3 due to type 2 diabetes mellitus: Code(s): E11.22 - Type 2 diabetes mellitus with diabetic chronic kidney disease; N18.30 - Chronic kidney disease, stage 3 unspecified Category: Medical (2) Diabetic nephropathy associated with type 2 diabetes mellitus: Code(s): E11.21 - Type 2 diabetes mellitus with diabetic nephropathy Category: Medical (3) Hypertension: Code(s): I10 - Essential (primary) hypertension Category: Medical Qualifiers: Hypertension type: primary hypertension Qualified Code(s): I10 - Essential (primary) hypertension Plan Sindi has 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 Her renal biopsy in the past showed significant disease from diabetes and hypertension. She had been off angiotensin receptor claude now, since she had hyperkalemia. I plan to restart it later. She should be on a low-potassium diet. I plan to increase her Jardiance to 25 mg daily, at next visit . She needs to increase hydration. She should maintain a tighter blood sugar control. She should cut back sodium in the diet and lose weight. She should maintain good hydration and avoid nonsteroidal anti-inflammatories. I increased her Kayexalate to 30 Gram twice a week for now. I have ordered follow up blood work. Follow up appointment given Orders: Orders Electrolytes 1 Month E11.22 - Type 2 diabetes mellitus with diabetic chronic kidney disease, I10 - Essential (primary) hypertension, N18.30 - Chronic kidney disease, stage 3 unspecified Creatinine 1 Month E11.22 - Type 2 diabetes mellitus with diabetic chronic kidney disease, I10 - Essential (primary) hypertension, N18.30 - Chronic kidney disease, stage 3 unspecified Blood Urea Nitrogen 1 Month E11.22 - Type 2 diabetes mellitus with diabetic chronic kidney disease, I10 - Essential (primary) hypertension, N18.30 - Chronic kidney disease, stage 3 unspecified Coding Level of Care Code Est Pt Level 4 (54422) Diagnoses CKD stage 3 due to type 2 diabetes mellitus E11.22; N18.30 Diabetic nephropathy associated with type 2 diabetes mellitus E11.21 Primary hypertension I10 Hypertension type: primary hypertension
[2024-10-24 10:08] VITALS: BP 140/70; PULSE 69; O2SAT 97; BMI 39.8
--- OUTSIDE RECORDS SUMMARY | 2024-10-24 11:00 | XMS_ITS | Patient Health Record ---
Author Organization [facility] Address [address] [place] [address] Care Team Providers Care Transformer Tester Name Role Phone Zeus Maldonado MD, Ventura Primary Care Provide Castillo Cash Unavailable [phone] Allergies Allergen (clinical drug ingredient) Drug/Non Drug [...] for 30 days 10/13/2022 Active Vitamin D3 01918 UNIT 1 tablet Orally On ce a [...] W/U Status Risk Notes Problem Epigastric pain (92310332) Epigastric abdominal pain (R10.13) Active confirmed Problem 253891940 Encounter for screening for malignant neoplasm of colon (Z12.11) Active confirmed Problem Screening for malignant neoplasm of rectum (896997226) Encounter for screening for malignant neoplasm of rectum (Z12.12) Active confirmed Problem 565643482 Long-term use of aspirin therapy (Z79.82) Active confirmed Problem 22399517 Constipation, unspecified constipation type (K59.00) Active confirmed Problem Gastroesophageal reflux disease (606764499) GERD (gastroesophage al reflux disease) (K21.9) Active confirmed Problem Chronic constipation (707973990) Constipation, chronic (K59.00) Active confirmed Plan Of Treatment Pending Test Test Name Order Date US ABD 05/23/2020 TSH REFLEX FREE T4 10/13/2022 Future Test Test Name Order Date COLONOSCOPY 06/12/2015 UPPER GI ENDOSCOPY 05/23/2020 Insurance Providers Payer Name Payer Address Payer Phone Subscriber Number Group Number Insured Name Patient Relationship to Insured Coverage Start Date Coverage End Date [facility] [address] [place] [address] [id number] CARINE LOCKHART Self - patient is the insured Medical (General) History Medical History History ICD Code Screening colonoscopy 01/2005 and 08/2015--negative except for diverticulosis and internal hemorrhoids IDDM Hyperlipidemia Denies [place] CVA > 10 yrs ago Asthma Chronic kidney disease state III-Dr. Hall iesarah HTN GERD Surgical History Surgery Date(Month/Year) Appendectomy Tubal ligation KATHARINA Cataracts and lens implants
--- OUTSIDE RECORDS SUMMARY | 2024-10-24 11:00 | XMS_ITS | Encounter Summary ---
Author Organization [employer] [facility] Address [address] 7t [place] [address] Care Team Providers Care Clinician Oncology Name Role Phone Ventura Taavres MD Primary Care Provide r Encounter Details Date Type Department Care Team (Late Contact Info) Description 12/01/2022 Abstract [facility] [address] [place] [address] [phone] Ventura Tavares MD [address] [place] [address] [phone] Social History Tobacco Use Types Packs/Day Years [...] 10:15 AM EDT Office Visit [facility] [address] [place] [address] [phone] Ventura Tavares MD [address] [place] [address] [phone] documented as of this encounter Procedures Procedure Name Priority Date/Time Associated Diagnosis Comments HM COLONOSCOPY Routine 09/01/2015 documented in this encounter Results * Colonoscopy (09/01/2015) Colonoscopy Normal Normal 09/01/2015 Brittany Patel - 09/01/2015 11:54 AM EST Recommended 10 year follow up us Historical Provider [facility] Edited Result - Final documented in this encounter Visit Diagnoses Not on filedocumented in this encounter Care Teams Clinician Oncology Relationship Specialty Start Date End Date Ventura Tavares MD [address] [place] [address] PCP - General Internal Medicine 03/11/14 documented as of this encounter
--- OUTSIDE RECORDS SUMMARY | 2024-10-24 11:00 | XMS_ITS | Encounter Summary ---
Author Organization [employer] Address [address] [place] [address] Care Team Providers Care Natural Gas Inspector Name Role Phone Ventura Tavares MD Primary Care Provide r Encounter Details Date Type Department Care Team ([facility] st Contact Info) Description 07/05/2023 Telephone [facility] [address] [place], [place] [phone] Ventura Tavares MD [address] [place] [address] Social History Tobacco Use Types Packs/Day Years [...] 07/05/2023 2:11 PM EST Tc from farzad (PATTERN PAINTER) with [employer] calling to advise provider, a home assessment was done on behalf of CCAand pt A1C came out to be 10.8 Any questions, contact Farzad at [phone] documented in this encounter Plan of Treatment Upcoming Encounters Date Type Department Care Team (Late st Contact Info) Description 12/04/2024 10:15 AM EDT Office Visit [facility] [address] [place], [place] [phone] Ventura Tavares MD [address] [place] [address] documented as of this encounter Visit Diagnoses Not on filedocumented in this encounter Additional Health Concerns Assessment Noted Time PHQ-9 Depression Total Score: 12 023 10:55 AM EDT documented as of this encounter Care Teams Natural Gas Inspector Relationship Specialty Start Date End Date Ventura Tavares MD [address] [place], [place] [phone] PCP - General Internal Medicine 03/11/14 documented as of this encounter
--- OUTSIDE RECORDS SUMMARY | 2024-10-24 11:00 | XMS_ITS | Encounter Summary ---
Author Organization [facility] Address [address] [place] [address] 7t [place] [address] Care Team Providers Care Crime Prevention Worker Name Role Phone Ventura Tavares MD Primary Care Provide r Encounter Details Date Type Department Care Team (Late st Contact Info) Description 07/09/2022 [facility] [place] [facility] Information Management [address] [place], [place] [phone] Ventura Tavares MD [address] [place], [place] [phone] Social History Tobacco Use Types Packs/Day Years [...] 10:15 AM EDT Office Visit [facility] [address] [place], [place] [phone] Ventura Tavares MD [address] [place], [place] [phone] documented as of this encounter Procedures Procedure [...] (09/06/2022 10:34 AM EST) Color Urine Yellow [facility] Appearance Urine Clear [facility] PH 7.5 5.0 - 9.0 [facility] Glucose Urine UA 100(A) Negative mg/dL [facility] Urine Blood Negative Negative [facility] Specific [place] - Urine 1.020 1.005 - 1.025 [facility] Urine Protein 100 (2+)(A) Neg-Trace mg/dL [facility] Urine Ketones Negative Negative mg/dL [facility] Nitrite Urine Negative Negative [facility] Leukocyte Esterase Urine Negative Negative [facility] RBC Urine 0-2 0 - 2 /HPF [facility] Urine WBC 0-5 0 - 5 /HPF [facility] Urine Squamous Epithelial Cell 6-10 0 - 2 /HPF [facility] Urine Bacteria None Seen None Seen [facility] Hyaline Casts, Urine 0-2 0 - 2 /LPF [facility] 09/06/2022 10:3 4 AM EST 09/06/2022 10:38 AM EST [facility] - 09/06/2022 10:51 AM EST [id number], Clean Catch [facility] External Provider LAB URI NE ORDERABLES Final Result Performing Organization Address [facility] de Phone Number [facility] [address] [place] [address] [phone] * (ABNORMAL) Urinalysis with reflex microscopic (09/06/2022 10:34 AM EST) Color Urine Yellow [facility] Appearance Urine Clear [facility] PH 7.5 5.0 - 9.0 [facility] Glucose Urine UA 100(A) Negative mg/dL [facility] Urine Blood Negative Negative [facility] Specific [place] - Urine 1.020 1.005 - 1.025 [facility] Urine Protein 100 (2+)(A) Neg-Trace mg/dL [facility] Urine Ketones Negative Negative mg/dL [facility] Nitrite Urine Negative Negative [facility] Leukocyte Esterase Urine Negative Negative [facility] 09/06/2022 10:3 4 AM EST 09/06/2022 10:38 AM EST [facility] - 09/06/2022 10:45 AM EST [id number], Clean Catch [facility] External Provider LAB URI NE ORDERABLES Final Result Performing Organization Address [facility] Co de Phone Number [facility] [address] [place] [address] [phone] * (ABNORMAL) Comprehensive Metabolic Panel (09/06/2022 10:27 AM EST) Sodium 139 135 - 145 mmol/L [facility] Potassium 5.1 3.3 - 5.1 mmol/L [facility] Chloride 103 96 - 108 mmol/L [facility] Carbon Dioxide 29 22 - 29 mmol/L [facility] Anion Gap 12 12 - 20 [facility] Urea Nitrogen (BUN) 36(H) 9 - 16 mg/dL [facility] Creatinine, Serum 1.47(H) 0.5 - 1.4 mg/dL [facility] Creatinine Clr Calc Pharmacy 27.5 [facility] Comment:Provided height and weight: 134.62 cm,78.018 kg.eGFR (calculated from the MDRD study equation) and eCrCl(calculated from the Cockcroft-Gault equation) are based ondifferent parameters and may not yield comparable results.If eCrCl result is absurd, please check patient'sheight/weight. Estimated Glomerular Filt Rate 35 [facility] Comment:NOTE: For -Am erican individuals, multiply the result by 1.210.Chronic Kidney Disease: Estimated GFR < 60 mL/min/1.50d1Dojuvq Kidney Disease: Estimated GFR < 15 mL/min/1.73m2 Glucose 190(H) 60 - 115 mg/dL [facility] Calcium 9.4 8.4 - 10.2 mg/dL [facility] Bilirubin, Total 0.6 0.0 - 1.0 mg/dL [facility] Aspartate Amino Transferase 18 5 - 31 U/L [facility] Alanine Aminotransferase 16 0 - 31 U/L [facility] Total Protein 6.9 6.5 - 8.0 g/dL [facility] Albumin Level 4.0 3.5 - 5.0 g/dL [facility] Alkaline Phosphatase 105 39 - 117 U/L [facility] 09/06/2022 10:2 7 AM EST 09/06/2022 10:31 AM EST us [facility] External Provider LAB BLO OD ORDERABLES Final Result [facility] [address] [place] [address] [phone] * (ABNORMAL) CBC auto differential (09/06/2022 10:27 AM EST) White Blood Count 6.5 4.8 - 10.8 X10*3/uL [facility] Red Blood Count 3.99(L) 4.20 - 5.50 X10*6/uL [facility] Hemoglobin 12.0 12.0 - 16.0 g/dl [facility] Hematocrit 36.2(L) 37.0 - 47.0 % [facility] Mean Corpuscular Volume 90.7 80.0 - 98.0 fL [facility] Mean Corpuscular Hemoglobin 30.1 27.0 - 33.0 pg [facility] Mean Corpuscular HGB Conc 33.1 31.0 - 35.0 g/dl [facility] Red Cell Distribution Width 11.6 11.0 - 16.0 % [facility] Platelet Count 194 160 - 400 X10*3/uL [facility] Mean Platelet Volume 10.6 9.4 - 12.3 fL [facility] Neutrophils Percent Auto 64.0 45 - 73 % [facility] Imm Gran Pct Auto 0.3 0.0 - 0.4 % [facility] Lymphocytes Percent Auto 22.6 20 - 40 % [facility] Monocytes Percent Auto 7.9 2 - 11 % [facility] Eosinophils Percent Auto 4.7(H) 0 - 4 % [facility] Basophils Percent Auto 0.5 0 - 2 % [facility] NRBC Pct Auto 0.0 0.0 - 0.2 /100WBC [facility] Neutrophils Absolute Auto 4.1 2.0 - 8.3 x10*3/uL [facility] Imm Gran Abs Auto 0.02 0.00 - 0.03 X10*3/uL [facility] Lymphocytes Absolute Auto 1.5 1.2 - 4.9 X10*3/uL [facility] Monocytes Absolute Auto 0.5 0.1 - 1.2 X10*3/uL [facility] Eosinophils Absolute Auto 0.3 0.0 - 0.4 X10*3/uL [facility] Basophils Absolute Auto 0.0 0.0 - 0.2 X10*3/uL [facility] NRBC Abs Auto 0.000 0.0 - 0.012 X10*3/uL [facility] 09/06/2022 10:2 7 AM EST 09/06/2022 10:31 AM EST [facility] External Provider LAB BLO OD ORDERABLES Final Result Performing Organization Address [facility] Phone Number [facility] [address] [place] [phone] * Calcium (08/03/2022 8:15 AM EST) Calcium 9.2 8.4 - 10.2 mg/dL [facility] 08/03/2022 8:15 AM EST 08/03/2022 10:30 AM EST [facility] External Provider LAB BLO OD ORDERABLES Final Result Performing Organization Address [facility] Number [facility] [address] [place] [phone] * (ABNORMAL) Creatinine, Serum (08/03/2022 8:15 AM EST) Creatinine, Serum 1.54(H) 0.5 - 1.4 mg/dL [facility] Estimated Glomerular Filt Rate 33 [facility] Comment:NOTE: For -Am erican individuals, multiply the result by 1.210.Chronic Kidney Disease: Estimated GFR < 60 mL/min/1.93n5Asbrkn Kidney Disease: Estimated GFR < 15 mL/min/1.73m2 08/03/2022 8:15 AM EST 08/03/2022 10:30 AM EST [facility] External Provider LAB BLO OD ORDERABLES Final Result Performing Organization Address [facility] Co de Phone Number [facility] [address] [place] [phone] * (ABNORMAL) BUN (Blood Urea Nitrogen) (08/03/2022 8:15 AM EST) Urea Nitrogen (BUN) 39(H) 9 - 16 mg/dL [facility] 08/03/2022 8:15 AM EST 08/03/2022 10:30 AM EST [facility] External Provider LAB BLO OD ORDERABLES Final Result Performing Organization Address [facility] Co de Phone Number [facility] [address] [place] [address] [phone] * (ABNORMAL) Electrolyte Panel (08/03/2022 8:15 AM EST) Sodium 140 135 - 145 mmol/L [facility] Potassium 5.5(H) 3.3 - 5.1 mmol/L [facility] Chloride 106 96 - 108 mmol/L [facility] Carbon Dioxide 28 22 - 29 mmol/L [facility] Anion Gap 12 12 - 20 [facility] 08/03/2022 8:15 AM EST 08/03/2022 10:30 AM EST [facility] External Provider LAB BLO OD ORDERABLES Final Result Performing Organization Address [facility] de Phone Number [facility] [address] [place] [address] [phone] documented in this encounter Visit Diagnoses Not on filedocumented in this encounter Care Teams Crime Prevention Worker Relationship Specialty Start Date End Date Ventura Tavares MD [address] [place] [phone] PCP - General Internal Medicine 03/11/14 documented as of this encounter
--- OUTSIDE RECORDS SUMMARY | 2024-10-24 11:00 | XMS_ITS | Encounter Summary ---
Author Organization [email or web address] Address [address]t [place] [address] Care Team Providers Care Back Seam Stitcher Name Role Phone Ventura Tavares MD Primary Care Provide r Encounter Details Date Type Department Care Team ([facility] Contact Info) Description 03/02/2023 Orders Only [facility] [address] [place] [address] Terra Hannon LPN Social History Tobacco Use [...] 12/04/2024 10:15 AM EDT Office Visit [facility] [address] [place], [place] [phone] Ventura Tavares MD [address] [place], [place] [phone] documented as of this encounter Visit Diagnoses Not on filedocumented in this encounter Additional Health Concerns Assessment Noted Time PHQ-9 Depression Total Score: 12 023 10:55 AM EDT documented as of this encounter Care Teams Back Seam Stitcher Relationship Specialty Start Date End Date Ventura Tavares MD [address] [place] [address] PCP - General Internal Medicine 03/11/14 documented as of this encounter
--- OUTSIDE RECORDS SUMMARY | 2024-10-24 11:00 | XMS_ITS | Encounter Summary ---
Author Organization [employer] Address [address] [place] [address] Care Team Providers Care Metal Burrer Name Role Phone Ventura Tavares MD Primary Care Provide r Encounter Details Date Type Department Care Team ([facility] st Contact Info) Description 01/04/2023 Orders Only [facility] [address] [place] [address] Aime Bland MD [address] [place] [address] Dyspnea, unspecified type (Primary Dx) Social History [...] 12/04/2024 10:15 AM EDT Office Visit [facility] [address] [place] [address] Ventura Tavares MD [address] [place] [address] Scheduled Orders Name Type Priority Associated Diagnoses [...] PM EDT Narrative 01/04/2023 2:57 PM EDT ?[facility] ?[address] ?[place] [address] ?XRay Report ? Signed ? Patient: Sindi Obrien ?MR#: M ?? [id number] ? : 1950 ?Acct:[id number] ? Age/Sex: 72 / F ?ADM Date: 01/04/23 ? Loc: HO.HHCX ? Attending Dr: Aime Bland MD ? Ordering Physician: AIME BLAND MD ?? Date of Service: 01/04/23 ?? Procedure(s): XR chest 2V ?? Accession Number(s): [id number] ? cc: AIME BLAND MD ? EXAMINATION: [...] ?01/04/23 ? DD/ 19 ? TD/TT: ? Stationary Engineer Refrigeration: HERSON ? Procedure Note Donotniainterpreter, Image - 01/19/2023 [facility] [address] [place] [address] XRay Report Signed Patient: Sindi ObrienMR#: [id number] : 2Acct:[id number] Age/Sex: 72 / FADM Date: 01/04/23 Loc: HO.HHCX Attending Dr: Aime Bland MD Ordering Physician: AIME BLAND MD Date of Service: 01/04/23 Procedure(s): XR chest 2V Accession Number(s): [id number] cc: AIME BLAND MD EXAMINATION: XR CHEST [...] in OV> 01/04/23 1454 DD/ 1420 TD/TT: Stationary Engineer Refrigeration: HERSON [facility] External Provider IMG XR PROCEDURES Final Result documented in this encounter Visit Diagnoses Diagnosis Dyspnea, unspecified type- Primary documented in this encounter Additional Health Concerns Assessment Noted Time PHQ-9 Depression Total Score: 12 023 10:55 AM EDT documented as of this encounter Care Teams Metal Burrer Relationship Specialty Start Date End Date Ventura Tavares MD [address] [place] [address] PCP - General Internal Medicine 03/11/14 documented as of this encounter
--- OUTSIDE RECORDS SUMMARY | 2024-10-24 11:00 | XMS_ITS | Clinical Summary ---
Author Organization [employer] Address [address] [facility] [address]t [place] [address] Care Team Providers Care Distribution Systems Superintendent Name Role Phone Ventura Tavares MD Primary [...] MOUTH EVERY DAY 90 tablet 3 Active Jardiance 10 MG Take 1 tablet by mouth Once per day. Active gabapentin (Neurontin) 300 MG capsuleIndication s:Pain TAKE 1 CAPSULE BY MOUTH AT BEDTIME 90 capsule 025 Active Continuous Glucose Sensor (FreeStyle Blake 3 Sensor) misc USE DIRECTED TO CHECK BLOOD SUGAR CHANGE EVERY 14 DAYS 1 each 3 025 Active Continuous Glucose Sensor (FreeStyle Blake 3 Sensor) misc Apply 1 Device topically every 14 (fourteen) days. APPLY EVERY 14 DAYS DIRECTED 2 each 2 024 2024 Discontinued Active Problems Problem Noted [...] appears bluish ,regular borders -referred today to traffic or system dispatcher Routine physical examination 04/19/2023 Assessment & Plan [...] Larry spoke with Dr. Cosme's office (her hebrew cantor), pt was seen 12/27/2023. We notified the office that her hematology specialist Dr. Silverio prescribes Lasix 20 mg 2 tabs po daily. Patient followed by Dr Cosme Brineyard Supervisor, Previous Stress Test and ECHO unremarkable. Last seen 07/03/2024. Assessment & Plan (05/15/2024 1:05 PM EDT): Seen initially by Dr Demarcus Larry with c/o LE edema and elevated BNP, CXR was unermarkable. Dr. Larry spoke with Dr. Cosme's office (her hebrew cantor), pt was seen 12/27/2023. We notified the office that her hematology specialist Dr. Silverio prescribes Lasix 20 mg 2 tabs po daily. Patient followed by Dr Cosme Brineyard Supervisor, Previous Stress Test and ECHO unremarkable. Last seen 12/27/2023. Assessment & Plan (09/22/2023 11:38 AM EST): Seen by Dr Demarcus Larry with c/o LE edema, referred to cardiology seen by Dr Cosme Brineyard Supervisor, Stress Test and ECHO unremarkable Assessment & [...] 2:14 PM EST): Seeing Trinh Su at [facility] Hyperlipidemia 04/06/2012 Assessment & Plan (09/04/2024 2:05 [...] Plan: As per Endocrinology [facility] Dr. both eyes. Last seen 12/06/2023 Pt does not adhere to a diabetic diet, does not want to go any higher on her insulin dose as it was recommended by her Meat Carver. Pt advised to Adhere to diabetic diet [...] Plan: As per Endocrinology 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 Last seen 12/06/2023 Pt does not adhere to a diabetic diet, does not want to go any higher on her insulin dose as it was recommended by her Meat Carver. Pt advised to Adhere to diabetic diet [...] 81 mg po daily. Eye exam with Airway Traffic Controller [facility] diagnosed with DR both eyes 10/26/2016 Pt does not adhere to a diabetic diet, does not want to go any higher on her insulin dose as it was recommended by her Meat Carver. Pt advised to Adhere to diabetic diet [...] 81 mg po daily. Eye exam with Airway Traffic Controller [facility] diagnosed with DR both eyes 10/26/2016 Pt does not adhere to a diabetic diet, does not want to go any higher on her insulin dose as it was recommended by her Meat Carver. Pt advised to Adhere to diabetic diet [...] 81 mg po daily. Eye exam with Airway Traffic Controller [facility] diagnosed with DR both eyes 10/26/2016 Pt does not adhere to a diabetic diet, does not want to go any higher on her insulin dose as it was recommended by her Meat Carver. Pt advised to Adhere to diabetic diet [...] 81 mg po daily. Eye exam with Airway Traffic Controller [facility] diagnosed with DR both eyes 10/26/2016 Pt does not adhere to a diabetic diet, does not want to go any higher on her insulin dose as it was recommended by her Meat Carver. Pt advised to Adhere to diabetic diet [...] 81 mg po daily. Eye exam with Airway Traffic Controller [facility] diagnosed with DR both eyes 10/26/2016 Pt does not adhere to a diabetic diet, does not want to go any higher on her insulin dose as it was recommended by her Meat Carver. Pt advised to Adhere to diabetic diet [...] Encounters Date Type Department Care Team Description 10/19/2024 Refill [facility] [place] [address] Ventura Tavares MD 10/08/2024 Orders Only GENERIC EXTERNAL DATA DEPARTMENT Provider, Generic External Data 09/21/2024 Orders Only GENERIC EXTERNAL DATA DEPARTMENT Provider, Generic External Data 09/04/2024 2:15 PM EST Office Visit [facility] [place] [address] Ventura Tavares MD Hyperkalemia (Primary Dx); Type 2 diabetes mellitus with stage 3a chronic kidney disease, with long-term current use of insulin ([facility]); [place] (dyspnea on exertion); Primary hypertension; Stage 3a chronic kidney disease ([facility]); Preventative health care; Mixed hyperlipidemia; 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 ([facility]); Depressive disorder; Lactose intolerance 09/04/2024 Travel 08/27/2024 Telephone [facility] [place] [address] Ventura Tavares MD Error (VOID this visit) 08/21/2024 Refill [facility] [place] [address] Ventura Tavares MD Pain 08/15/2024 Telephone [facility] [place] [address] Ventura Tavares MD Appointment Confirmation 08/01/2024 Telephone [facility] [place] [address] Ventura Tavares MD Chart Prep 07/26/2024 8:40 AM EST Office Visit [facility] [address] [place] [address] Trung Wu MD Greater trochanteric bursitis of left hip (Primary Dx) from Last 3 Months Immunizations Name Administration [...] Description 12/04/2024 10:15 AM EDT Office Visit [facility] [address] [place] [address] Ventura Tavares MD [address] [place] [address] Health Maintenance Due Date Last Done Comments [...] disease, with long-term current use of insulin (CMS/HCC) POCT GLUCOSE Routine 09/04/2024 2:01 PM EST Type 2 diabetes mellitus with stage 3a chronic kidney disease, with long-term current use of insulin ([facility]) BI MAMMOGRAM SCREENING TOMOSYNTHESIS BILATERAL Routine 10/24/2023 12:40 PM EDT LIPID PANEL, STANDARD Routine 09/30/2023 8:11 AM EST HM COLONOSCOPY Routine 09/01/2015 from Last 3 Months or Most Recently Relevant to Health Maintenance Results * (ABNORMAL) Glucose, Whole Blood (10/08/2024 12:59 PM EDT) Only the most recent of2 resultswithin the time period is included. Glucose, Whole Blood 242(H) 60 - 115 mg/dL [facility] Comment:METER #: [id number] Testing performed in the Endocrinology Department [address] , [address], [facility]. 10/08/2024 12:5 9 PM EDT 10/08/2024 1:02 PM EDT us Generic External Data Provider LAB BLOOD ORDERAB LES Final Result [facility] [address] [place] [phone] * (ABNORMAL) POCT HGB A1C (09/04/2024 [...] EDT Narrative 11/06/2023 3:28 PM EDT ? [facility] [place] ? [address] ?[place] [id number] ? Mammography Report ? Signed ? Patient: Sindi Obrien ?MR#: M ?? [id number] ? : 1950 ?Acct:[id number] ? Age/Sex: 72 / F ?ADM Date: 04//24 ? Loc: HO.MAMMO ? Attending Dr: Ventura Shi MD ? Ordering Physician: Ventura Shi MD ?Resu ?? lts: 2Benign Findings ? Date of Service: 10/24/23 ?Follow Up: 1 Year From Orig ?? inal Mammogram ? Procedure(s): MM tomosynthesis screening BI ?? Accession Number(s): [id number] ? cc: Ventura Shi MD ? EXAMINATION: [...] 1525 ? DD/ 1240 ? TD/TT: ? Captain Cannery Tender: ? Procedure Note Donotuseinterpreter, Image - 11/06/2023 [facility] [address] [place] [address] Dr. Santiago, [place] [id number] Mammography Report Signed Patient: Sindi ObrienMR#: M [id number] : 2Acct:[id number] Age/Sex: 72 / FADM Date: 10/24/23 Loc: HO.MAMMO Attending Dr: Ventura Shi MD Ordering Physician: Ventura Shi MDResu lts: 2Benign Findings Date of Service: 10/24/23Follow Up: 1 Year From Orig inal Mammogram Procedure(s): MM tomosynthesis screening BI Accession Number(s): [id number] cc: Ventura Shi MD EXAMINATION: MM SCREENING [...] in OV> 11/06/23 1525 DD/ 1240 TD/TT: Captain Cannery Tender: us Ventura Maldonado MD IMG BI PROCEDURES Ortiz cesar Result - Final * Lipid Panel, Standard (09/30/2023 8:11 AM EST) Triglycerides 50 <150 mg/dL [facility] Comment:Desirable Triglyceri de: less than 150 mg/dLBorderline High Triglyceride 150-199 mg/dLHigh Triglyceride: 200-499 mg/dLVery High Triglyceride: greater than or equal to 5OO mg/dL Cholesterol 143 <200 mg/dL [facility] Comment:Desirable Cholestero l: less than 200 mg/dLBorderline High Cholesterol: 200-239 mg/dLHigh Cholesterol: greater than 239 mg/dL LDL Cholesterol Calculated 64 <100 mg/dL [facility] Comment:Desirable LDL: less than 100 mg/dLNear Optimal/Above Optimal LDL: 110- 129 mg/dLBorderline High LDL: 130-159 mg/dLHigh LDL: 160-189 mg/dLVery High LDL: greater than or equal to 190 mg/dL HDL Cholesterol 69 >40 mg/dL [facility] Comment:Desirable HDL: great er than 40 mg/dL Note: This HDL assay may give artificially low results in patients with liver disease. 09/30/2023 8:11 AM EST 09/30/2023 8:11 AM EST us Generic External Data Provider LAB BLOOD ORDERAB LES Final Result [facility] [address] [place] [phone] * Hm Colonoscopy (09/01/2015) Colonoscopy Normal Normal 09/01/2015 Narrative Britatny Galarza - 09/01/2015 11:54 AM EST Recommended 10 year follow up us Historical Provider HEALTH MAINTENANCE Edited Result - Final from Last 3 Months or Most Recently Relevant to Health Maintenance Insurance [facility] Care Teams Distribution Systems Superintendent Relationship Specialty Start Date End Date Ventura Tavares MD [address] [place] [address] [place] [address] PCP - General Internal Medicine 03/11/14
--- OUTSIDE RECORDS SUMMARY | 2024-10-24 11:00 | XMS_ITS | Encounter Summary ---
Author Organization [employer] Address [address] [facility] 7t [place] [address] Care Team Providers Care Underwear Finisher Name Role Phone Ventura Tavares MD Primary Care Provide r Encounter Details Date Type Department Care Team ([facility] Contact Info) Description 09/20/2022 Orders Only [facility] [address] [place], [place] [phone] Terra Hannon LPN Social History Tobacco Use [...] Upcoming Encounters Date Type Department Care Team ([facility] Contact Info) Description 12/04/2024 10:15 AM EDT Office Visit [facility] [address] [place], [place] [phone] Ventura Tavares MD [address] [place], [place] [phone] documented as of this encounter Visit Diagnoses Not on filedocumented in this encounter Care Teams Underwear Finisher Relationship Specialty Start Date End Date Ventura Tavares MD [address] [place] [phone] PCP - General Internal Medicine 03/11/14 documented as of this encounter
--- OUTSIDE RECORDS SUMMARY | 2024-10-24 11:00 | XMS_ITS | Encounter Summary ---
Author Organization [employer] [facility] Address [address] [facility] 7t [place] [address] Care Team Providers Care Rn Imaging Name Role Phone Ventura Tavares MD Primary Care Provide r Encounter Details Date Type Department Care Team ([facility] Contact Info) Description 04/07/2023 Telephone [facility] [address] [place] [address] [phone] Ventura Tavares MD [address] [place] [address] [phone] Social History Tobacco Use Types Packs/Day Years [...] Upcoming Encounters Date Type Department Care Team ([facility] Contact Info) Description 12/04/2024 10:15 AM EDT Office Visit [facility] [address] [place] [address] [phone] Ventura Tavares MD [address] [place] [address] documented as of this encounter Visit Diagnoses Not on filedocumented in this encounter Additional Health Concerns Assessment Noted Time PHQ-9 Depression Total Score: 12 12/21/ 023 10:55 AM EDT documented as of this encounter Care Teams Rn Imaging Relationship Specialty Start Date End Date Ventura Tavares MD [address] [place] [address] PCP - General Internal Medicine 03/11/14 documented as of this encounter
--- OUTSIDE RECORDS SUMMARY | 2024-10-24 11:00 | XMS_ITS | Encounter Summary ---
Author Organization [employer] [facility] Address [address] [facility] 7t [place] [address] Care Team Providers Care Burnt Lime Drawer Name Role Phone Ventura Tavares MD Primary Care Provide r Reason for Visit * Reason Onset Date Comments ER Follow-up 10/25/2022 Encounter Details Date Type Department Care Team ([facility] st Contact Info) Description 10/25/2022 Telephone [facility] [address] [place] [address] Ventura Tavares MD [address] [place], [place] [phone] ER Follow-up Social History Tobacco Use Types [...] to report ED visit on 10/25/22 at [facility]. Diagnosed with fall. Patient advised will forward to team nurse for follow up. documented in this encounter Plan of Treatment Upcoming Encounters Date Type Department Care Team (Late st Contact Info) Description 12/04/2024 10:15 AM EDT Office Visit [facility] [address] [place] [address] Ventura Tavares MD [address] [place] [address] documented as of this encounter Visit Diagnoses Not on filedocumented in this encounter Care Teams Burnt Lime Drawer Relationship Specialty Start Date End Date Vent[place] [address] PCP - General Internal Medicine 03/11/14 documented as of this encounter
--- OUTSIDE RECORDS SUMMARY | 2024-10-24 11:00 | XMS_ITS | Encounter Summary ---
Author Organization [employer] Address [address] [place] [address] Care Team Providers Care Fruit Receiver Name Role Phone Ventura Tavares MD Primary Care Provide r Reason for Visit * Reason Comments Med Refill Encounter Details Date Type Department Care Team ([facility] st Contact Info) Description 10/19/2024 Refill [facility] [address] [place] [address] Ventura Tavares MD [address] [place] [address] Social History Tobacco Use Types Packs/Day Years [...] Description 12/04/2024 10:15 AM EDT Office Visit [facility] [address] [place] [address] Ventura Tavares MD [address] [place] [address] documented as of this encounter Visit Diagnoses Not on filedocumented in this encounter Additional Health Concerns Assessment Noted Time PHQ-9 Depression Total Score: 0 05/15/20 24 10:57 AM EDT documented as of this encounter Care Teams Fruit Receiver Relationship Specialty Start Date End Date Ventura Tavares MD [address] [place] [address] PCP - General Internal Medicine 03/11/14 documented as of this encounter
--- OUTSIDE RECORDS SUMMARY | 2024-10-24 11:00 | XMS_ITS | Clinical Summary ---
Author Organization [facility] Address [address] [place] [address] [address] [place] [phone] Phone Care Team Providers Care Hooker Laster Name Role Phone Ventura Schulz MD Primary [...] & Plan: Improving Pt seen at our [facility] by Dr Demarcus Larry, [place] negative [...] patient's age to complete this topic Insurance [facility] MCR ([id number]) MAZIN SINGER [id number] [facility] MCR ([id number]) MAZIN SINGER [id number] Care Teams Hooker Laster Relationship Specialty Start Date End Date Ventura Schulz MD [address] [place] [address] PCP - General 08/04/20
--- OUTSIDE RECORDS SUMMARY | 2024-10-24 11:00 | XMS_ITS | Encounter Summary ---
Author Organization [employer] [facility] Address [address] [facility] 7t [place] [address] Care Team Providers Care Trucksmith Name Role Phone Ventura Tavares MD Primary Care Provide r Reason for Visit * Reason Comments Med Refill Encounter Details Date Type Department [facility] Team ([facility] Info) Description 02/24/2023 Refill [facility] [address] [place] [phone] Ventura Tavares MD [address] [place] [address] Pain Social History Tobacco Use Types Packs/Day [...] Upcoming Encounters Date Type Department Care Team ([facility] Contact Info) Description 12/04/2024 10:15 AM EDT Office Visit [facility] [address] [place] [phone] Ventura Tavares MD [address] [place] [address] documented as of this encounter Visit Diagnoses Diagnosis Pain Generalized pain documented in this encounter Additional Health Concerns Assessment Noted Time PHQ-9 Depression Total Score: 12 023 10:55 AM EDT documented as of this encounter Care Teams Trucksmith Relationship Specialty Start Date End Date Ventura Tavares MD [address] [place] [address] PCP - General Internal Medicine 03/11/14 documented as of this encounter
== END 2024-10-24 10:21 | disposition home or self-care (01) ==
LOC: HO.HKA 09:42
PROVIDERS: PCP Internal Medicine; Visit Provider Internal Medicine Nephrology
DX: E11.22 Type 2 diabetes mellitus with diabetic chronic kidney disease (principal); N18.30 Chronic kidney disease, stage 3 unspecified; E11.21 Type 2 diabetes mellitus with diabetic nephropathy; I10 Essential (primary) hypertension
CPT/HCPCS: 99214

== ENCOUNTER → 2024-10-24 09:41 | Outpatient (BNVA) | payer OTHER, SELFPAY | PROVIDERS: PCP Internal Medicine; Visit Provider Internal Medicine Nephrology | DX: E11.22 Type 2 diabetes mellitus with diabetic chronic kidney disease (principal); I12.9 Hypertensive chronic kidney disease with stage 1 through stage 4 chronic kidney disease, or unspecified chronic kidney disease; N18.30 Chronic kidney disease, stage 3 unspecified; E11.21 Type 2 diabetes mellitus with diabetic nephropathy | CPT/HCPCS: 99212 ==

== ENCOUNTER 2024-11-20 09:16 | Outpatient (REF) | payer OTHER, SELFPAY ==
--- OUTSIDE RECORDS SUMMARY | 2024-11-20 10:06 | XMS_ITS | Encounter Summary ---
Author Organization [employer] [facility] Address [address] [place] [address] 7t [place] [address] Care Team Providers Care Charter Bus Driver Name Role Phone Ventura Tavares MD Primary Care Provide r Encounter Details Date Type Department Care Team (Late st Contact Info) Description 07/09/2022 [facility] Information Management [address] [place], [place] [phone] Ventura Tavares MD [address] [place], [place] [phone] Social History Tobacco Use Types Packs/Day Years [...] Description 12/04/2024 10:15 AM EDT Office Visit [facility] [address] [place], [place] [phone] Ventura Tavares MD [address] [place], [place] [phone] documented as of this encounter Procedures Procedure [...] (09/06/2022 10:34 AM EST) Color Urine Yellow [facility] Appearance Urine Clear [facility] PH 7.5 5.0 - 9.0 [facility] Glucose Urine UA 100(A) Negative mg/dL [facility] Urine Blood Negative Negative [facility] Specific [place] - Urine 1.020 1.005 - 1.025 [facility] Urine Protein 100 (2+)(A) Neg-Trace mg/dL [facility] Urine Ketones Negative Negative mg/dL [facility] Nitrite Urine Negative Negative [facility] Leukocyte Esterase Urine Negative Negative [facility] RBC Urine 0-2 0 - 2 /HPF [facility] Urine WBC 0-5 0 - 5 /HPF [facility] Urine Squamous Epithelial Cell 6-10 0 - 2 /HPF [facility] Urine Bacteria None Seen None Seen [facility] Hyaline Casts, Urine 0-2 0 - 2 /LPF [facility] 09/06/2022 10:3 4 AM EST 09/06/2022 10:38 AM EST [facility] - 09/06/2022 10:51 AM EST [id number], [facility] External Provider LAB URI NE ORDERABLES Final Result Performing Organization Address [facility] de Phone Number [facility] [address] [place] [address] [phone] * (ABNORMAL) Urinalysis with reflex microscopic (09/06/2022 10:34 AM EST) Color Urine Yellow [facility] Appearance Urine Clear [facility] PH 7.5 5.0 - 9.0 [facility] Glucose Urine UA 100(A) Negative mg/dL [facility] Urine Blood Negative Negative [facility] Specific [place] - Urine 1.020 1.005 - 1.025 [facility] Urine Protein 100 (2+)(A) Neg-Trace mg/dL [facility] Urine Ketones Negative Negative mg/dL [facility] Nitrite Urine Negative Negative [facility] Leukocyte Esterase Urine Negative Negative [facility] 09/06/2022 10:3 4 AM EST 09/06/2022 10:38 AM EST [facility] - 09/06/2022 10:45 AM EST [id number], [employer] External Provider LAB URI NE ORDERABLES Final Result Performing Organization Address [facility] Co de Phone Number [facility] [address] [place] [address] [phone] * (ABNORMAL) Comprehensive Metabolic Panel (09/06/2022 10:27 AM EST) Sodium 139 135 - 145 mmol/L [facility] Potassium 5.1 3.3 - 5.1 mmol/L [facility] Chloride 103 96 - 108 mmol/L [facility] Carbon Dioxide 29 22 - 29 mmol/L [facility] Anion Gap 12 12 - 20 [facility] Urea Nitrogen (BUN) 36(H) 9 - 16 mg/dL [facility] Creatinine, Serum 1.47(H) 0.5 - 1.4 mg/dL [facility] Creatinine Clr Calc Pharmacy 27.5 [facility] Comment:Provided height and weight: 134.62 cm,78.018 kg.eGFR (calculated from the MDRD study equation) and eCrCl(calculated from the Cockcroft-Gault equation) are based ondifferent parameters and may not yield comparable results.If eCrCl result is absurd, please check patient'sheight/weight. Estimated Glomerular Filt Rate 35 [facility] Comment:NOTE: For -Am erican individuals, multiply the result by 1.210.Chronic Kidney Disease: Estimated GFR < 60 mL/min/1.51q0Hkdegx Kidney Disease: Estimated GFR < 15 mL/min/1.73m2 Glucose 190(H) 60 - 115 mg/dL [facility] Calcium 9.4 8.4 - 10.2 mg/dL [facility] Bilirubin, Total 0.6 0.0 - 1.0 mg/dL [facility] Aspartate Amino Transferase 18 5 - 31 U/L [facility] Alanine Aminotransferase 16 0 - 31 U/L [facility] Total Protein 6.9 6.5 - 8.0 g/dL [facility] Albumin Level 4.0 3.5 - 5.0 g/dL [facility] Alkaline Phosphatase 105 39 - 117 U/L [facility] 09/06/2022 10:2 7 AM EST 09/06/2022 10:31 AM EST us [facility] External Provider LAB BLO OD ORDERABLES Final Result [facility] [address] [place] [address] [phone] * (ABNORMAL) CBC auto differential (09/06/2022 10:27 AM EST) White Blood Count 6.5 4.8 - 10.8 X10*3/uL [facility] Red Blood Count 3.99(L) 4.20 - 5.50 X10*6/uL [facility] Hemoglobin 12.0 12.0 - 16.0 g/dl [facility] Hematocrit 36.2(L) 37.0 - 47.0 % [facility] Mean Corpuscular Volume 90.7 80.0 - 98.0 fL [facility] Mean Corpuscular Hemoglobin 30.1 27.0 - 33.0 pg [facility] Mean Corpuscular HGB Conc 33.1 31.0 - 35.0 g/dl [facility] Red Cell Distribution Width 11.6 11.0 - 16.0 % [facility] Platelet Count 194 160 - 400 X10*3/uL [facility] Mean Platelet Volume 10.6 9.4 - 12.3 fL [facility] Neutrophils Percent Auto 64.0 45 - 73 % [facility] Imm Gran Pct Auto 0.3 0.0 - 0.4 % [facility] Lymphocytes Percent Auto 22.6 20 - 40 % [facility] Monocytes Percent Auto 7.9 2 - 11 % [facility] Eosinophils Percent Auto 4.7(H) 0 - 4 % [facility] Basophils Percent Auto 0.5 0 - 2 % [facility] NRBC Pct Auto 0.0 0.0 - 0.2 /100WBC [facility] Neutrophils Absolute Auto 4.1 2.0 - 8.3 x10*3/uL [facility] Imm Gran Abs Auto 0.02 0.00 - 0.03 X10*3/uL [facility] Lymphocytes Absolute Auto 1.5 1.2 - 4.9 X10*3/uL [facility] Monocytes Absolute Auto 0.5 0.1 - 1.2 X10*3/uL [facility] Eosinophils Absolute Auto 0.3 0.0 - 0.4 X10*3/uL [facility] Basophils Absolute Auto 0.0 0.0 - 0.2 X10*3/uL [facility] NRBC Abs Auto 0.000 0.0 - 0.012 X10*3/uL [facility] 09/06/2022 10:2 7 AM EST 09/06/2022 10:31 AM EST [facility] External Provider LAB BLO OD ORDERABLES Final Result Performing Organization Address [facility] Phone Number [facility] [address] [place] [phone] * Calcium (08/03/2022 8:15 AM EST) Calcium 9.2 8.4 - 10.2 mg/dL [facility] 08/03/2022 8:15 AM EST 08/03/2022 10:30 AM EST [facility] External Provider LAB BLO OD ORDERABLES Final Result Performing Organization Address [facility] Number [facility] [address] [place] [phone] * (ABNORMAL) Creatinine, Serum (08/03/2022 8:15 AM EST) Creatinine, Serum 1.54(H) 0.5 - 1.4 mg/dL [facility] Estimated Glomerular Filt Rate 33 [facility] Comment:NOTE: For -Am erican individuals, multiply the result by 1.210.Chronic Kidney Disease: Estimated GFR < 60 mL/min/1.63j6Avissc Kidney Disease: Estimated GFR < 15 mL/min/1.73m2 08/03/2022 8:15 AM EST 08/03/2022 10:30 AM EST [facility] External Provider LAB BLO OD ORDERABLES Final Result Performing Organization Address [facility] Co de Phone Number [facility] [address] [place] [phone] * (ABNORMAL) BUN (Blood Urea Nitrogen) (08/03/2022 8:15 AM EST) Urea Nitrogen (BUN) 39(H) 9 - 16 mg/dL [facility] 08/03/2022 8:15 AM EST 08/03/2022 10:30 AM EST [facility] External Provider LAB BLO OD ORDERABLES Final Result Performing Organization Address City/[facility] Co de Phone Number [facility] [address] [place] [address] [phone] * (ABNORMAL) Electrolyte Panel (08/03/2022 8:15 AM EST) Sodium 140 135 - 145 mmol/L [facility] Potassium 5.5(H) 3.3 - 5.1 mmol/L [facility] Chloride 106 96 - 108 mmol/L [facility] Carbon Dioxide 28 22 - 29 mmol/L [facility] Anion Gap 12 12 - 20 [facility] 08/03/2022 8:15 AM EST 08/03/2022 10:30 AM EST [facility] External Provider LAB BLO OD ORDERABLES Final Result Performing Organization Address [facility] de Phone Number [facility] [address] [place] [phone] documented in this encounter Visit Diagnoses Not on filedocumented in this encounter Care Teams Charter Bus Driver Relationship Specialty Start Date End Date Ventura Tavares MD [address] [place] [phone] PCP - General Internal Medicine 03/11/14 documented as of this encounter
--- OUTSIDE RECORDS SUMMARY | 2024-11-20 10:06 | XMS_ITS | Encounter Summary ---
Author Organization [employer] [facility] Address [address] [facility] 7t [place] [address] Care Team Providers Care Rotary Driller Prospecting Name Role Phone Ventura Tavares MD Primary Care Provide r Encounter Details Date Type Department Care Team ([facility] Contact Info) Description 04/07/[address] [facility] [address] [place] [address] [phone] Ventura Tavares MD [address] [place] [address] [phone] Social History Tobacco Use Types Packs/Day Years [...] 12/04/2024 10:15 AM EDT Office Visit [facility] [address] [place] [address] [phone] Ventura Tavares MD [address] [place] [phone] documented as of this encounter Visit Diagnoses Not on filedocumented in this encounter Additional Health Concerns Assessment Noted Time PHQ-9 Depression Total Score: 12 12/21/ 023 10:55 AM EDT documented as of this encounter Care Teams Rotary Driller Prospecting Relationship Specialty Start Date End Date Ventura Tavares MD [address] [place] [address] PCP - General Internal Medicine 03/11/14 documented as of this encounter
--- OUTSIDE RECORDS SUMMARY | 2024-11-20 10:06 | XMS_ITS | Encounter Summary ---
Author Organization [employer] [facility] Address [address] [facility] 7t [place] [address] Care Team Providers Care Chief Design Branch Name Role Phone Ventura Tavares MD Primary Care Provide r Encounter Details Date Type Department Care Team (Late Contact Info) Description 12/01/2022 Abstract [facility] [address] [place] [address] [phone] Ventura Tavares MD [address] [place] [address] [phone] Social History Tobacco Use Types Packs/Day Years [...] 10:15 AM EDT Office Visit [facility] [address] [place] [address] [phone] Ventura Tavares MD [address] [place] [address] [phone] documented as of this encounter Procedures Procedure [...] on filedocumented in this encounter Care Teams Chief Design Branch Relationship Specialty Start Date End Date Ventura Tavares MD [address] [place] [address] PCP - General Internal Medicine 03/11/14 documented as of this encounter
--- OUTSIDE RECORDS SUMMARY | 2024-11-20 10:06 | XMS_ITS | Encounter Summary ---
Author Organization [employer] Address [address] 7t [place] [address] Care Team Providers Care Logging Rafter Laborer Name Role Phone Ventura Tavares MD Primary Care Provide r Encounter Details Date Type Department Care Team ([facility] st Contact Info) Description 07/05/2023 Telephone [facility] [address] [place], [place] [phone] Ventura Tavares MD [address] [place] [address] Social History Tobacco Use Types Packs/Day Years [...] 07/05/2023 2:11 PM EST Tc from farzad (BOARDING KENNEL OR CATTERY OPERATOR) with [facility] calling to advise provider, a home assessment was done on behalf of CCAand pt A1C came out to be 10.8 Any questions, contact [employer] at [phone] documented in this encounter Plan of Treatment Upcoming Encounters Date Type Department Care Team (Late st Contact Info) Description 12/04/2024 10:15 AM EDT Office Visit [facility] [address] [place], [place] [phone] Ventura Tavares MD [address] [place] [address] documented as of this encounter Visit Diagnoses Not on filedocumented in this encounter Additional Health Concerns Assessment Noted Time PHQ-9 Depression Total Score: 12 023 10:55 AM EDT documented as of this encounter Care Teams Logging Rafter Laborer Relationship Specialty Start Date End Date Ventura Tavares MD [address] [place], [place] [phone] PCP - General Internal Medicine 03/11/14 documented as of this encounter
--- OUTSIDE RECORDS SUMMARY | 2024-11-20 10:06 | XMS_ITS | Encounter Summary ---
Author Organization [employer] Address [address] [facility] [address] 7[address] [place] [address] Care Team Providers Care Biology Faculty Member Name Role Phone Ventura Tavares MD Primary Care Provide r Encounter Details Date Type Department Care Team ([facility] st Contact Info) Description 01/04/2023 Orders Only [facility] [address] [place] [address] Aime Bland MD [address] [place] [address] Dyspnea, unspecified type (Primary Dx) Social History [...] 10:15 AM EDT Office Visit [facility] [address] [place] [phone] Ventura Tavares MD [address] [place] [address] Scheduled Orders Name Type Priority Associated Diagnoses [...] PM EDT Narrative 01/04/2023 2:57 PM EDT ?[facility] ?[address] ?[place] [address] ?XRay Report ? Signed ? Patient: Sindi Obrien ?MR#: M ?? [id number] ? : 1950 ?Acct:[id number] ? Age/Sex: 72 / F ?ADM Date: 01/04/23 ? Loc: HO.HHCX ? Attending Dr: Aime Bland MD ? Ordering Physician: AIME BLAND MD ?? Date of Service: 01/04/23 ?? Procedure(s): XR chest 2V ?? Accession Number(s): [id number] ? cc: AIME BLAND MD ? EXAMINATION: [...] ?01/04/23 ? DD/ 19 ? TD/TT: ? Clerical Car Checker: HERSON ? Procedure Note Donotniainterpreter, Image - 01/19/2023 [facility] [address] [place] [address] XRay Report Signed Patient: Sindi ObrienMR#: [id number] : 2Acct:[id number] Age/Sex: 72 / FADM Date: 01/04/23 Loc: HO.HHCX Attending Dr: Aime Bland MD Ordering Physician: AIME BLAND MD Date of Service: 01/04/23 Procedure(s): XR chest 2V Accession Number(s): [id number] cc: AIME BLAND MD EXAMINATION: XR CHEST [...] in OV> 01/04/23 1454 DD/ 1420 TD/TT: Clerical Car Checker: HERSON [facility] External Provider IMG XR PROCEDURES Final Result documented in this encounter Visit Diagnoses Diagnosis Dyspnea, unspecified type- Primary documented in this encounter Additional Health Concerns Assessment Noted Time PHQ-9 Depression Total Score: 12 023 10:55 AM EDT documented as of this encounter Care Teams Biology Faculty Member Relationship Specialty Start Date End Date Ventura Tavares MD [address] [place] [address] PCP - General Internal Medicine 03/11/14 documented as of this encounter
--- OUTSIDE RECORDS SUMMARY | 2024-11-20 10:06 | XMS_ITS | Encounter Summary ---
Author Organization [employer] Address [address] [facility] 7t [place] [address] Care Team Providers Care Pin Or Clip Fastener Name Role Phone Ventura Tavares MD Primary Care Provide r Encounter Details Date Type Department Care Team ([facility] Contact Info) Description 09/20/2022 Orders Only [facility] [address] [place], [place] [phone] Terra Hannon LPN Social History Tobacco Use [...] Upcoming Encounters Date Type Department Care Team ([facility] Contact Info) Description 12/04/2024 10:15 AM EDT Office Visit [facility] [address] [place], [place] [phone] Ventura Tavares MD [address] [place], [place] [phone] documented as of this encounter Visit Diagnoses Not on filedocumented in this encounter Care Teams Pin Or Clip Fastener Relationship Specialty Start Date End Date Ventura Tavares MD [address] [place] [phone] PCP - General Internal Medicine 03/11/14 documented as of this encounter
--- OUTSIDE RECORDS SUMMARY | 2024-11-20 10:06 | XMS_ITS | Encounter Summary ---
Author Organization [employer] Address [address] 7[address] [place] [address] Care Team Providers Care Bend Up Name Role Phone Ventura Tavares MD Primary Care Provide r Reason for Visit * Reason Comments Med Refill Encounter Details Date Type Department Care Team ([facility] st Contact Info) Description 11/20/2024 Refill [facility] [address] [place] [address] Ventura Tavares MD [address] [place] [address] Pain Social History Tobacco Use Types Packs/Day [...] 10:15 AM EDT Office Visit [facility] [address] [place] [address] Ventura Tavaers MD [address] [place] [address] documented as of this encounter Visit Diagnoses Diagnosis Pain Generalized pain documented in this encounter Additional Health Concerns Assessment Noted Time PHQ-9 Depression Total Score: 0 05/15/20 24 10:57 AM EDT documented as of this encounter Care Teams Bend Up Relationship Specialty Start Date End Date Ventura Tavares MD [address] [place] [phone] PCP - General Internal Medicine 03/11/14 documented as of this encounter
--- OUTSIDE RECORDS SUMMARY | 2024-11-20 10:06 | XMS_ITS | Encounter Summary ---
Author Organization [employer] Address [address] [facility] 7t [place] [address] Care Team Providers Care Senior Java J2Ee Developer Name Role Phone Ventura Tavares MD Primary Care Provide r Encounter Details Date Type Department Care Team ([facility] Contact Info) Description 03/02/2023 Orders Only [facility] [address] [place] [address] Terra Hannon LPN Social History Tobacco Use [...] 12/04/2024 10:15 AM EDT Office Visit [facility] [address] [place], [place] [phone] Ventura Tavares MD [address] [place], [place] [phone] documented as of this encounter Visit Diagnoses Not on filedocumented in this encounter Additional Health Concerns Assessment Noted Time PHQ-9 Depression Total Score: 12 023 10:55 AM EDT documented as of this encounter Care Teams Senior Java J2Ee Developer Relationship Specialty Start Date End Date Ventura Tavares MD [address] [place] [address] PCP - General Internal Medicine 03/11/14 documented as of this encounter
--- OUTSIDE RECORDS SUMMARY | 2024-11-20 10:06 | XMS_ITS | Clinical Summary ---
Author Organization [employer] Address [address] [facility] 7t [place] [address] Care Team Providers Care Sports Book Server Name Role Phone Ventura Tavares MD Primary [...] DAY 90 tablet 3 05/30/20 24 Active Jardiance 10 MG Take 1 tablet by mouth Once per day. 07/02/20 24 Active gabapentin (Neurontin) 300 MG capsuleIndications :Pain TAKE 1 CAPSULE BY MOUTH AT BEDTIME 90 capsule 08/21/19 25 Active Continuous Glucose Sensor (FreeStyle Blake 3 Sensor) misc USE DIRECTED TO CHECK BLOOD SUGAR CHANGE EVERY 14 DAYS 1 each 3 10/20/19 25 Active Active Problems Problem Noted Date [...] appears bluish ,regular borders -referred today to green tire inspector Routine physical examination 04/19/2023 Assessment & Plan [...] Larry spoke with Dr. Cosme's office (her data collection associate), pt was seen 12/27/2023. We notified the office that her tap out operator Dr. Silverio prescribes Lasix 20 mg 2 tabs po daily. Patient followed by Dr Cosme Environmental Aide, Previous Stress Test and ECHO unremarkable. Last seen 07/03/2024. Assessment & Plan (05/15/2024 1:05 PM EDT): Seen initially by Dr Demarcus Larry with c/o LE edema and elevated BNP, CXR was unermarkable. Dr. Larry spoke with Dr. Cosme's office (her data collection associate), pt was seen 12/27/2023. We notified the office that her tap out operator Dr. Silverio prescribes Lasix 20 mg 2 tabs po daily. Patient followed by Dr Cosme Environmental Aide, Previous Stress Test and ECHO unremarkable. Last seen 12/27/2023. Assessment & Plan (09/22/2023 11:38 AM EST): Seen by Dr Demarcus Larry with c/o LE edema, referred to cardiology seen by Dr Cosme Environmental Aide, Stress Test and ECHO unremarkable Assessment & Plan (01/18/2023 10:50 AM EDT): Seen by Dr Demarcus Larry with c/o LE edema, referred to cardiology seen by Dr Cosme 01/06/2023 ECHO ordered [facility] health care 01/18/2023 Assessment & Plan (09/04/2024 [...] 2:14 PM EST): Seeing Trinh Su at [facility] Hyperlipidemia 04/06/2012 Assessment & Plan (09/04/2024 2:05 [...] Plan: As per Endocrinology Eye exam with Hospital Nurse [facility] diagnosed with Dr. both eyes. Last seen 12/06/2023 Pt does not adhere to a diabetic diet, does not want to go any higher on her insulin dose as it was recommended by her Accounting Generalist. Pt advised to Adhere to diabetic diet [...] Plan: As per Endocrinology Eye exam with Hospital Nurse [facility] 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 Last seen 12/06/2023 Pt does not adhere to a diabetic diet, does not want to go any higher on her insulin dose as it was recommended by her Accounting Generalist. Pt advised to Adhere to diabetic diet [...] 81 mg po daily. Eye exam with Hospital Nurse [facility] diagnosed with DR both eyes 10/26/2016 Pt does not adhere to a diabetic diet, does not want to go any higher on her insulin dose as it was recommended by her Accounting Generalist. Pt advised to Adhere to diabetic diet [...] 81 mg po daily. Eye exam with Hospital Nurse [facility] diagnosed with DR both eyes 10/26/2016 Pt does not adhere to a diabetic diet, does not want to go any higher on her insulin dose as it was recommended by her Accounting Generalist. Pt advised to Adhere to diabetic diet [...] 81 mg po daily. Eye exam with Hospital Nurse [facility] diagnosed with DR both eyes 10/26/2016 Pt does not adhere to a diabetic diet, does not want to go any higher on her insulin dose as it was recommended by her Accounting Generalist. Pt advised to Adhere to diabetic diet [...] 81 mg po daily. Eye exam with Hospital Nurse [facility] diagnosed with DR both eyes 10/26/2016 Pt does not adhere to a diabetic diet, does not want to go any higher on her insulin dose as it was recommended by her Accounting Generalist. Pt advised to Adhere to diabetic diet [...] 81 mg po daily. Eye exam with Hospital Nurse [facility] diagnosed with DR both eyes 10/26/2016 Pt does not adhere to a diabetic diet, does not want to go any higher on her insulin dose as it was recommended by her Accounting Generalist. Pt advised to Adhere to diabetic diet [...] Encounters Date Type Department Care Team Description 11/20/2024 Refill [facility] [address] [place] [address] Ventura Tavares MD Pain 10/19/2024 Refill [facility] [address] [place] [address] Ventura Tavares MD 10/08/2024 Orders Only GENERIC EXTERNAL DATA DEPARTMENT Provider, Generic External Data 09/21/2024 Orders Only GENERIC EXTERNAL DATA DEPARTMENT Provider, Generic External Data 09/04/2024 2:15 PM EST Office Visit [facility] [address] [place] [address] Ventura Tavares MD Hyperkalemia (Primary Dx); Type 2 diabetes mellitus with stage 3a chronic kidney disease, with long-term current use of insulin ([facility]); [place] (dyspnea on exertion); Primary hypertension; Stage 3a chronic kidney disease (CMS/HCC); Preventative health care; Mixed hyperlipidemia; 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 (CMS/HCC); Depressive disorder; Lactose intolerance 09/04/2024 Travel 08/27/2024 Telephone [facility] [address] [place] [address] Ventura Tavares MD Error (VOID this visit) from Last 3 Months Immunizations Name Administration [...] AM EDT Office Visit [facility] [address], [place] [phone] Ventura Tavares MD [address] [place] [address] Health Maintenance Due Date Last Done Comments [...] with long-term current use of insulin (CMS/HCC) BI MAMMOGRAM SCREENING TOMOSYNTHESIS BILATERAL Routine 10/24/2023 12:40 PM EDT LIPID PANEL, STANDARD Routine 09/30/2023 8:11 AM EST HM COLONOSCOPY Routine 09/01/2015 from Last 3 Months or Most Recently Relevant to Health Maintenance Results * (ABNORMAL) Glucose, Whole Blood (10/08/2024 12:59 PM EDT) Only the most recent of2 resultswithin the time period is included. Pathologist [facility] Glucose, Whole Blood 242(H) 60 - 115 mg/dL [facility] Comment:METER #: [id number] Testing performed in the Endocrinology Department [address] , [address], [facility]. 10/08/2024 12:5 9 PM EDT 10/08/2024 1:02 PM EDT Generic External Data Provider LAB BLOOD ORDERAB LES Final Result Performing Organization Address City/State/[facility] Co de Phone Number [facility] [address] [place] [phone] * (ABNORMAL) POCT HGB A1C (09/04/2024 2:05 PM EST) [facility] Hemoglobin A1C 9.0(A) 4.0 - 6.0 % QC Media Lot # [id number] Lot# Expiration Date Blood 09/04/2024 2:05 PM EST Ventura Maldonado MD POINT OF CARE TEST EN TER/EDIT ORDERABLES Final Result * (ABNORMAL) POCT Glucose (09/04/2024 2:01 PM EST) Pathologist [facility] Glucose Blood, POC 283(A) 60 - 200 mg/dL QC Media Lot # [id number] Lot# Expiration Date ,025 Blood Capillary blood specimen / Unknown 09/04/2024 2:01 PM EST Ventura Maldonado MD POINT OF CARE TEST EN TER/EDIT ORDERABLES Final Result * BI Mammogram Screening Tomosynthesis Bilateral (10/24/2023 12:40 PM EDT) Anatomical Region Laterality Modality Breast Bilateral Mammography 10/24/2023 12:4 0 PM EDT Narrative 11/06/2023 3:28 PM EDT ? [facility] ? [address] ?[place] [address] ? Mammography Report ? Signed ? Patient: Sindi Obrien ?MR#: M ?? [id number] ? : 1950 ?Acct:[id number] ? Age/Sex: 72 / F ?ADM Date: 10/24/23 ? Loc: HO.MAMMO ? Attending Dr: Ventura Shi MD ? Ordering Physician: Ventura Shi MD ?Resu ?? lts: 2Benign Findings ? Date of Service: 10/24/23 ?Follow Up: 1 Year From Orig ?? inal Mammogram ? Procedure(s): MM tomosynthesis screening BI ?? Accession Number(s): [id number] ? cc: Ventura Shi MD ? EXAMINATION: [...] 1525 ? DD/ 1240 ? TD/TT: ? Tmr Teacher: ? Procedure Note Griselda, Guille - 11/06/2023 [facility] [address] [place] [address] [place] [address] Mammography Report Signed Patient: Sindi Obrein#: M [id number] : 2Acct:[id number] Age/Sex: 72 / FADM Date: 10/24/23 Loc: SAJAN Attending Dr: Ventura Shi MD Ordering Physician: Ventura Shi MDResu lts: 2Benign Findings Date of Service: 10/24/23Follow Up: 1 Year From Orig inal Mammogram Procedure(s): MM tomosynthesis screening BI Accession Number(s): [id number] cc: Ventura Shi MD EXAMINATION: MM SCREENING [...] in OV> 11/06/23 1525 DD/ 1240 TD/TT: Tmr Teacher: us Ventura Maldonado MD IMG BI PROCEDURES Ortiz cesar Result - Final * Lipid Panel, Standard (09/30/2023 8:11 AM EST) Triglycerides 50 <150 mg/dL [facility] Comment:Desirable Triglyceri de: less than 150 mg/dLBorderline High Triglyceride 150-199 mg/dLHigh Triglyceride: 200-499 mg/dLVery High Triglyceride: greater than or equal to 5OO mg/dL Cholesterol 143 <200 mg/dL [facility] Comment:Desirable Cholestero l: less than 200 mg/dLBorderline High Cholesterol: 200-239 mg/dLHigh Cholesterol: greater than 239 mg/dL LDL Cholesterol Calculated 64 <100 mg/dL [facility] Comment:Desirable LDL: less than 100 mg/dLNear Optimal/Above Optimal LDL: 110- 129 mg/dLBorderline High LDL: 130-159 mg/dLHigh LDL: 160-189 mg/dLVery High LDL: greater than or equal to 190 mg/dL HDL Cholesterol 69 >40 mg/dL [facility] Comment:Desirable HDL: great er than 40 mg/dL Note: This HDL assay may give artificially low results in patients with liver disease. 09/30/2023 8:11 AM EST 09/30/2023 8:11 AM EST us Generic External Data Provider LAB BLOOD ORDERAB LES Final Result [facility] [address] [place] [phone] * Colonoscopy (09/01/2015) Colonoscopy Normal Normal 09/01/2015 Narrative Brittany Galarza - 09/01/2015 11:54 AM EST Recommended 10 year follow up Historical Provider HEALTH MAINTENANCE Edited Result - Final from Last 3 Months or Most Recently Relevant to Health Maintenance Insurance [facility] [employer] (O D-SNP) [place] [id number] Care Teams Sports Book Server Relationship Specialty Start Date End Date Ventura Tavares MD [address] [place] [phone] PCP - General Internal Medicine 03/11/14
--- OUTSIDE RECORDS SUMMARY | 2024-11-20 10:06 | XMS_ITS | Encounter Summary ---
Author Organization [employer] [facility] Address [address] [facility] 7t [place] [address] Care Team Providers Care Accountant Tax Name Role Phone Ventura Tavares MD Primary Care Provide r Reason for Visit * Reason Comments Med Refill Encounter Details Date Type Department Care Team ([facility] Contact Info) Description 02/24/2023 Refill [facility] [address] [place] [phone] Ventura Tavares MD [address] [place] [address] Pain Social History Tobacco Use Types Packs/Day [...] Upcoming Encounters Date Type Department Care Team ([facility] Contact Info) Description 12/04/2024 10:15 AM EDT Office Visit [facility] [address] [place] [phone] Ventura Tavares MD [address] [place] [address] documented as of this encounter Visit Diagnoses Diagnosis Pain Generalized pain documented in this encounter Additional Health Concerns Assessment Noted Time PHQ-9 Depression Total Score: 12 023 10:55 AM EDT documented as of this encounter Care Teams Accountant Tax Relationship Specialty Start Date End Date Ventura Tavares MD [address] [place] [address] PCP - General Internal Medicine 03/11/14 documented as of this encounter
--- OUTSIDE RECORDS SUMMARY | 2024-11-20 10:06 | XMS_ITS | Clinical Summary ---
Author Organization [facility] Address [address] [place] [address] [address] [place] [phone] Phone Care Team Providers Care Rn On Site Name Role Phone Ventura Schulz MD Primary [...] & Plan: Improving Pt seen at our [facility] by Dr Demarcus Larry, [place] negative for [...] 09/16/2021 Type 2 diabetes mellitus 02/25/2020 Immunizations Immunization Administration Dates Next Due Influenza Split 04/06/2012 [...] , 08/11/2021, Additional history exists Pneumococcal Vaccine: 50+ Years Completed 05/29/2024, 02/13/2021, 03/07/2000 Pneumococcal Vaccine: Peds (0 to 5 Years) and At-Risk Patients (6 to 49 Years) Discontinued 05/29/2024, 02/13/2021, 03/07/2000 Hepatitis B Vaccine Aged Out No longe r eligible based on patient's age to complete this topic Insurance ([id number]) [place] [id number] [facility] ([id number]) [place] [id number] Care Teams Rn On Site Relationship Specialty Start Date End Date Ventura Schulz MD [address] [employer] [place] [address] PCP - General 08/04/20
--- OUTSIDE RECORDS SUMMARY | 2024-11-20 10:06 | XMS_ITS | Encounter Summary ---
Author Organization [employer] [facility] Address [address] [facility] 7t [place] [address] Care Team Providers Care Syrup Shed Supervisor Name Role Phone Ventura Tavares MD Primary Care Provide r Reason for Visit * Reason Onset Date Comments ER Follow-up 10/25/2022 Encounter Details Date Type Department Care Team ([facility] st Contact Info) Description 10/25/2022 Telephone [facility] [address] [place] [address] Ventura Tavares MD [address] [place], [place] [phone] ER Follow-up Social History Tobacco Use Types [...] to [place] [facility] [place] Diagnosed with [place]. Patient advised will forward to team nurse for follow up. documented in this encounter Plan of Treatment Upcoming Encounters Date Type Department Care Team (Late st Contact Info) Description 12/04/2024 10:15 AM EDT Office Visit [facility] [address] [place] [address] Ventura Tavares MD [address] [place] [address] documented as of this encounter Visit Diagnoses Not on filedocumented in this encounter Care Teams Syrup Shed Supervisor Relationship Specialty Start Date End Date [place] [address] PCP - General Internal Medicine 03/11/14 documented as of this encounter
[2024-11-20 11:03] LABS: Anion Gap 12 (12-20); Blood Urea Nitrogen 29 mg/dL (9-16); Carbon Dioxide 29 mmol/L (22-29); Chloride 108 mmol/L (96-108); Estimated Glomerular Filt Rate 36; Potassium 5.5 mmol/L (3.3-5.1); Sodium 143 mmol/L (135-145)
== END 2024-11-20 09:17 | disposition home or self-care (01) ==
LOC: HO.10HDL 09:16
PROVIDERS: Visit Provider Internal Medicine Nephrology
DX: I12.9 Hypertensive chronic kidney disease with stage 1 through stage 4 chronic kidney disease, or unspecified chronic kidney disease (principal); E11.22 Type 2 diabetes mellitus with diabetic chronic kidney disease; N18.30 Chronic kidney disease, stage 3 unspecified
CPT/HCPCS: 36415; 80051; 82565; 84520

== ENCOUNTER 2024-11-21 10:16 | Outpatient (AMB) | payer OTHER, SELFPAY ==
--- NOTE | 2024-11-21 10:28 | HO.NEPHOV ---
Vital Signs 11/21/24 10:31 Height 4 ft 5 in Weight 161 lb 6 oz BMI 40.4 BP 100/50 L Blood Pressure Location Rt brachial Position Sitting Pulse 74 Pulse Source Pulse Oximeter Pulse Oximetry (%) 96 Oxygen Delivery Method Room Air Intake Visit Reasons: 1 MO FU-Conf Adjunct Faculty Mathematics Department Required: Yes Adjunct Faculty Mathematics Department Language: Security Director Services: Adjunct Faculty Mathematics Department Offered & Declined ([facility] ophthalmology assistant services refused, pt accompanied by daughter ) Accompanied by: Daughter Allergies metformin [From GLUCOPHAGE] Adverse Reaction (Unknown, Verified 11/21/24 10:29) DIARRHEA HPI Comments Details: Sindi was seen in follow-up of her chronic kidney disease due to biopsy-proven diabetic nephropathy. Her blood sugar control has been better with weight loss on Trulicity.. She has history of cerebrovascular accident. She has hypertension. She had no deficits from CVA. Blood pressure is better controlled. She has not good with her diet and weight loss. She denies using any nonsteroidal anti-inflammatories but consumes normal sodium and has a normal diet. she was on angiotensin receptor claude in the past which she did not tolerate very well. She denies chest pain, shortness of breath, paroxysmal nocturnal dyspnea, orthopnea, pedal edema, urinary symptoms or orthostasis. She tries to maintain herself with good hydration. She has been having facial swelling and pedal edema which resolved with diuresis. She is not very compliant with low sodium diet. She has been on losartan which has been put on hold since she has been having hyperkalemia. She has been on Kayexalate once a week. 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 Diabetic nephropathy associated with type 2 diabetes mellitus Dyslipidemia Diabetes type 2, uncontrolled Surgical History Hx of tubal ligation Hx of bilateral cataract extraction Hx of hysterectomy History of appendectomy Family History Father Cancer Mother Diabetes mellitus Social History Household Members: None Housing: Apartment Do you presently have visiting nurse or other home services: Yes Alcohol intake: never Patient Tobacco Use Status: Never used Tobacco Second Hand Smoke Exposure: No Advance Directives Date on File: 11/26/20 service: No Current occupational status: disabled Current occupation: rt handed Female Reproductive History Menstrual Age of Menarche: 12 Review of Systems Const All systems reviewed & are unremarkable except as noted in HPI and below Physical Exam Vital Signs: Last Vital Signs Pulse 74 11/21/24 10:31 BP 100/50 L 11/21/24 10:31 Pulse Ox 96 11/21/24 10:31 Oxygen Delivery Method Room Air 11/21/24 10:31 BMI result Body Mass Index 40.4 Const General: comfortable and no acute distress Orientation/consciousness: patient oriented x3 HEENT Head: Yes normocephalic Mouth: Normal oral and palatal mucosa present Eyes EOM: EOMs intact bilaterally Neck Neck: Yes supple Resp Auscultation: clear to auscultation bilaterally Cardio Jugular venous distension: no JVD Rate: regular rate GI Palpation (GI): Soft to palpation Auscultation: normal bowel sounds General: Yes no CVA tenderness Back/Spine/Pelvis Back: no CVA tenderness Skin General skin exam: no rashes or lesions noted Neuro General: patient oriented x3 and moves all extremities Extrem General: Yes no pedal edema Results Reviewed Nephrology Results: Sodium 143 mmol/L (135-145) 11/20/24 Potassium 5.5 mmol/L (3.3-5.1) H 11/20/24 Chloride 108 mmol/L (96-108) 11/20/24 Carbon Dioxide 29 mmol/L (22-29) 11/20/24 BUN 29 mg/dL (9-16) H 11/20/24 Creatinine 1.42 mg/dL (0.5-1.4) H 11/20/24 Assessment & Plan Assessment & Plan (1) CKD stage 3 due to type 2 diabetes mellitus: Code(s): E11.22 - Type 2 diabetes mellitus with diabetic chronic kidney disease; N18.30 - Chronic kidney disease, stage 3 unspecified Category: Medical (2) Hypertension: Code(s): I10 - Essential (primary) hypertension Category: Medical Qualifiers: Hypertension type: primary hypertension Qualified Code(s): I10 - Essential (primary) hypertension Plan Sindi has 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 Her renal biopsy in the past showed significant disease from diabetes and hypertension. She had been off angiotensin receptor claude now, since she had hyperkalemia. I plan to restart it later. She should be on a low-potassium diet. I increased her Jardiance to 25 mg daily . She needs to increase hydration. She should maintain a tighter blood sugar control. She should cut back sodium in the diet and lose weight. She should maintain good hydration and avoid nonsteroidal anti-inflammatories. I increased her Kayexalate to 30 Gram twice a week for now. I have ordered follow up blood work. Follow up appointment given Orders: Orders Blood Urea Nitrogen 4 Weeks E11.22 - Type 2 diabetes mellitus with diabetic chronic kidney disease, I10 - Essential (primary) hypertension, N18.30 - Chronic kidney disease, stage 3 unspecified Electrolytes 4 Weeks E11.22 - Type 2 diabetes mellitus with diabetic chronic kidney disease, I10 - Essential (primary) hypertension, N18.30 - Chronic kidney disease, stage 3 unspecified Creatinine 4 Weeks E11.22 - Type 2 diabetes mellitus with diabetic chronic kidney disease, I10 - Essential (primary) hypertension, N18.30 - Chronic kidney disease, stage 3 unspecified Medications: Changed From empagliflozin (Jardiance) 10 mg PO QAM 30 tabs 3RF To empagliflozin 25 mg PO QAM 30 days 30 tabs 6RF Coding Level of Care Code Est Pt Level 4 (16779) Diagnoses CKD stage 3 due to type 2 diabetes mellitus E11.22; N18.30 Primary hypertension I10 Hypertension type: primary hypertension
[2024-11-21 10:31] VITALS: BP 100/50; PULSE 74; O2SAT 96; BMI 40.4
--- OUTSIDE RECORDS SUMMARY | 2024-11-21 11:28 | XMS_ITS | Encounter Summary ---
Author Organization [employer] [facility] Address [address] [facility] 7t [place] [address] Care Team Providers Care Data Warehousing Engineer Name Role Phone Ventura Tavares MD Primary Care Provide r Reason for Visit * Reason Comments Med Refill Encounter Details Date Type Department Care Team ([facility] Contact Info) Description 02/24/2023 Refill [facility] [address] [place] [phone] Ventura Tavares MD [address] [place] [address] Pain Social History Tobacco Use Types Packs/Day [...] Upcoming Encounters Date Type Department Care Team ([facility] Contact Info) Description 12/04/2024 10:15 AM EDT Office Visit [facility] [address] [place] [phone] Ventura Tavares MD [address] [place] [address] documented as of this encounter Visit Diagnoses Diagnosis Pain Generalized pain documented in this encounter Additional Health Concerns Assessment Noted Time PHQ-9 Depression Total Score: 12 023 10:55 AM EDT documented as of this encounter Care Teams Data Warehousing Engineer Relationship Specialty Start Date End Date Ventura Tavares MD [address] [place] [address] PCP - General Internal Medicine 03/11/14 documented as of this encounter
--- OUTSIDE RECORDS SUMMARY | 2024-11-21 11:28 | XMS_ITS | Encounter Summary ---
Author Organization [email or web address] [facility] Address [address] [facility] 7t [place] [address] Care Team Providers Care Cable Splicing Technician Name Role Phone Ventura Tavares MD Primary Care Provide r Encounter Details Date Type Department Care Team ([facility] Contact Info) Description 04/07/2023 Telephone [facility] [address] [place] [address] [phone] Ventura Tavares MD [address] [place] [address] [phone] Social History Tobacco Use Types Packs/Day Years [...] Upcoming Encounters Date Type Department Care Team ([facility] Contact Info) Description 12/04/2024 10:15 AM EDT Office Visit [facility] [address] [place] [address] [phone] Ventura Tavares MD [address] [place] [address] documented as of this encounter Visit Diagnoses Not on filedocumented in this encounter Additional Health Concerns Assessment Noted Time PHQ-9 Depression Total Score: 12 12/21/ 023 10:55 AM EDT documented as of this encounter Care Teams Cable Splicing Technician Relationship Specialty Start Date End Date Ventura Tavares MD [address] [place] [address] PCP - General Internal Medicine 03/11/14 documented as of this encounter
--- OUTSIDE RECORDS SUMMARY | 2024-11-21 11:28 | XMS_ITS | Encounter Summary ---
Author Organization [employer] Address [address] [facility] 7t [place] [address] Care Team Providers Care Marine Fireman Name Role Phone Ventura Tavares MD Primary Care Provide r Encounter Details Date Type Department Care Team ([facility] Contact Info) Description 03/02/2023 Orders Only [facility] MED & PEDS [address] [place] [address] Terra Hannon LPN Social History Tobacco Use [...] Visit [facility] MEDICINE [address] [place], [place] [phone] Ventura Tavares MD [address] [place], [place] [phone] documented as of this encounter Visit Diagnoses Not on filedocumented in this encounter Additional Health Concerns Assessment Noted Time PHQ-9 Depression Total Score: 12 023 10:55 AM EDT documented as of this encounter Care Teams Marine Fireman Relationship Specialty Start Date End Date Ventura Tavares MD [address] [place] [address] PCP - General Internal Medicine 03/11/14 documented as of this encounter
--- OUTSIDE RECORDS SUMMARY | 2024-11-21 11:28 | XMS_ITS | Encounter Summary ---
Author Organization [employer] [facility] Address [address] [place] [address] 7t [place] [address] Care Team Providers Care Campaign Management Specialist Name Role Phone Ventura Tavares MD Primary Care Provide r Encounter Details Date Type Department Care Team (Late st Contact Info) Description 07/09/2022 [facility] Health Information Management [address] [place], [place] [phone] Ventura Tavares MD [address] [place], [place] [phone] Social History Tobacco Use Types Packs/Day Years [...] 10:15 AM EDT Office Visit [facility] MEDICINE [address] [place], [place] [phone] Ventura Tavares MD [address] [place], [place] [phone] documented as of this encounter Procedures Procedure [...] (09/06/2022 10:34 AM EST) Color Urine Yellow [facility] Appearance Urine Clear [facility] PH 7.5 5.0 - 9.0 [facility] Glucose Urine UA 100(A) Negative mg/dL [facility] Urine Blood Negative Negative [facility] Specific [place] - Urine 1.020 1.005 - 1.025 [facility] Urine Protein 100 (2+)(A) Neg-Trace mg/dL [facility] Urine Ketones Negative Negative mg/dL [facility] Nitrite Urine Negative Negative [facility] Leukocyte Esterase Urine Negative Negative [facility] RBC Urine 0-2 0 - 2 /HPF [facility] Urine WBC 0-5 0 - 5 /HPF [facility] Urine Squamous Epithelial Cell 6-10 0 - 2 /HPF [facility] Urine Bacteria None Seen None Seen [facility] Hyaline Casts, Urine 0-2 0 - 2 /LPF [facility] 09/06/2022 10:3 4 AM EST 09/06/2022 10:38 AM EST [facility] - 09/06/2022 10:51 AM EST [id number], Clean Catch [facility] External Provider LAB URI NE ORDERABLES Final Result Performing Organization Address [facility] de Phone Number [facility] [address] [place] [phone] [phone] * (ABNORMAL) Urinalysis with reflex microscopic (09/06/2022 10:34 AM EST) Color Urine Yellow [facility] Appearance Urine Clear [facility] PH 7.5 5.0 - 9.0 [facility] Glucose Urine UA 100(A) Negative mg/dL [facility] Urine Blood Negative Negative [facility] Specific [place] - Urine 1.020 1.005 - 1.025 [facility] Urine Protein 100 (2+)(A) Neg-Trace mg/dL [facility] Urine Ketones Negative Negative mg/dL [facility] Nitrite Urine Negative Negative [facility] Leukocyte Esterase Urine Negative Negative [facility] 09/06/2022 10:3 4 AM EST 09/06/2022 10:38 AM EST [facility] - 09/06/2022 10:45 AM EST [id number], Clean Catch [facility] External Provider LAB URI NE ORDERABLES Final Result Performing Organization Address [facility] Co de Phone Number [facility] [address] [place] [address] [phone] * (ABNORMAL) Comprehensive Metabolic Panel (09/06/2022 10:27 AM EST) Sodium 139 135 - 145 mmol/L [facility] Potassium 5.1 3.3 - 5.1 mmol/L [facility] Chloride 103 96 - 108 mmol/L [facility] Carbon Dioxide 29 22 - 29 mmol/L [facility] Anion Gap 12 12 - 20 [facility] Urea Nitrogen (BUN) 36(H) 9 - 16 mg/dL [facility] Creatinine, Serum 1.47(H) 0.5 - 1.4 mg/dL [facility] Creatinine Clr Calc Pharmacy 27.5 [facility] Comment:Provided height and weight: 134.62 cm,78.018 kg.eGFR (calculated from the MDRD study equation) and eCrCl(calculated from the Cockcroft-Gault equation) are based ondifferent parameters and may not yield comparable results.If eCrCl result is absurd, please check patient'sheight/weight. Estimated Glomerular Filt Rate 35 [facility] Comment:NOTE: For -Am erican individuals, multiply the result by 1.210.Chronic Kidney Disease: Estimated GFR < 60 mL/min/1.43g2Cdmwey Kidney Disease: Estimated GFR < 15 mL/min/1.73m2 Glucose 190(H) 60 - 115 mg/dL [facility] Calcium 9.4 8.4 - 10.2 mg/dL [facility] Bilirubin, Total 0.6 0.0 - 1.0 mg/dL [facility] Aspartate Amino Transferase 18 5 - 31 U/L [facility] Alanine Aminotransferase 16 0 - 31 U/L [facility] Total Protein 6.9 6.5 - 8.0 g/dL [facility] Albumin Level 4.0 3.5 - 5.0 g/dL [facility] Alkaline Phosphatase 105 39 - 117 U/L [facility] 09/06/2022 10:2 7 AM EST 09/06/2022 10:31 AM EST [facility] External Provider LAB BLO OD ORDERABLES Final Result [facility] [address] [place] [phone] * (ABNORMAL) CBC auto differential (09/06/2022 10:27 AM EST) White Blood Count 6.5 4.8 - 10.8 X10*3/uL [facility] Red Blood Count 3.99(L) 4.20 - 5.50 X10*6/uL [facility] Hemoglobin 12.0 12.0 - 16.0 g/dl [facility] Hematocrit 36.2(L) 37.0 - 47.0 % [facility] Mean Corpuscular Volume 90.7 80.0 - 98.0 fL [facility] Mean Corpuscular Hemoglobin 30.1 27.0 - 33.0 pg [facility] Mean Corpuscular HGB Conc 33.1 31.0 - 35.0 g/dl [facility] Red Cell Distribution Width 11.6 11.0 - 16.0 % [facility] Platelet Count 194 160 - 400 X10*3/uL [facility] Mean Platelet Volume 10.6 9.4 - 12.3 fL [facility] Neutrophils Percent Auto 64.0 45 - 73 % [facility] Imm Gran Pct Auto 0.3 0.0 - 0.4 % [facility] Lymphocytes Percent Auto 22.6 20 - 40 % [facility] Monocytes Percent Auto 7.9 2 - 11 % [facility] Eosinophils Percent Auto 4.7(H) 0 - 4 % [facility] Basophils Percent Auto 0.5 0 - 2 % [facility] NRBC Pct Auto 0.0 0.0 - 0.2 /100WBC [facility] Neutrophils Absolute Auto 4.1 2.0 - 8.3 x10*3/uL [facility] Imm Gran Abs Auto 0.02 0.00 - 0.03 X10*3/uL [facility] Lymphocytes Absolute Auto 1.5 1.2 - 4.9 X10*3/uL [facility] Monocytes Absolute Auto 0.5 0.1 - 1.2 X10*3/uL [facility] Eosinophils Absolute Auto 0.3 0.0 - 0.4 X10*3/uL [facility] Basophils Absolute Auto 0.0 0.0 - 0.2 X10*3/uL [facility] NRBC Abs Auto 0.000 0.0 - 0.012 X10*3/uL [facility] 09/06/2022 10:2 7 AM EST 09/06/2022 10:31 AM EST [facility] External Provider LAB BLO OD ORDERABLES Final Result Performing Organization Address [facility] Phone Number [facility] [address] [place] [phone] * Calcium (08/03/2022 8:15 AM EST) Calcium 9.2 8.4 - 10.2 mg/dL [facility] 08/03/2022 8:15 AM EST 08/03/2022 10:30 AM EST [facility] External Provider LAB BLO OD ORDERABLES Final Result Performing Organization Address [facility] Number [facility] [address] [place] [phone] * (ABNORMAL) Creatinine, Serum (08/03/2022 8:15 AM EST) Creatinine, Serum 1.54(H) 0.5 - 1.4 mg/dL [facility] Estimated Glomerular Filt Rate 33 [facility] Comment:NOTE: For -Am erican individuals, multiply the result by 1.210.Chronic Kidney Disease: Estimated GFR < 60 mL/min/1.27e8Ziypri Kidney Disease: Estimated GFR < 15 mL/min/1.73m2 08/03/2022 8:15 AM EST 08/03/2022 10:30 AM EST [facility] External Provider LAB BLO OD ORDERABLES Final Result Performing Organization Address [facility] Co de Phone Number [facility] [address] [place] [phone] * (ABNORMAL) BUN (Blood Urea Nitrogen) (08/03/2022 8:15 AM EST) Urea Nitrogen (BUN) 39(H) 9 - 16 mg/dL [facility] 08/03/2022 8:15 AM EST 08/03/2022 10:30 AM EST [facility] External Provider LAB BLO OD ORDERABLES Final Result Performing Organization Address [facility] Co de Phone Number [facility] [address] [place] [address] [phone] * (ABNORMAL) Electrolyte Panel (08/03/2022 8:15 AM EST) Sodium 140 135 - 145 mmol/L [facility] Potassium 5.5(H) 3.3 - 5.1 mmol/L [facility] Chloride 106 96 - 108 mmol/L [facility] Carbon Dioxide 28 22 - 29 mmol/L [facility] Anion Gap 12 12 - 20 [facility] 08/03/2022 8:15 AM EST 08/03/2022 10:30 AM EST [facility] External Provider LAB BLO OD ORDERABLES Final Result Performing Organization Address [facility] de Phone Number [facility] [address] [place] [phone] documented in this encounter Visit Diagnoses Not on filedocumented in this encounter Care Teams Campaign Management Specialist Relationship Specialty Start Date End Date Ventura Tavares MD [address] [place] [phone] PCP - General Internal Medicine 03/11/14 documented as of this encounter
--- OUTSIDE RECORDS SUMMARY | 2024-11-21 11:28 | XMS_ITS | Encounter Summary ---
Author Organization [employer] Address [address] 7t [place] [address] Care Team Providers Care Blind Slat Stapling Machine Operator Name Role Phone Ventura Tavares MD Primary Care Provide r Reason for Visit * Reason Comments Med Refill Encounter Details Date Type Department Care Team ([facility] st Contact Info) Description 11/20/2024 Refill [facility] MEDICINE [address] [place] [address] Ventura Tavares MD [address] [place] [address] Pain Social History Tobacco Use Types Packs/Day [...] 12/04/2024 10:15 AM EDT Office Visit [facility] MEDICINE [address] [place] [address] Ventura Tavares MD [address] [place] [address] documented as of this encounter Visit Diagnoses Diagnosis Pain Generalized pain documented in this encounter Additional Health Concerns Assessment Noted Time PHQ-9 Depression Total Score: 0 05/15/20 24 10:57 AM EDT documented as of this encounter Care Teams Blind Slat Stapling Machine Operator Relationship Specialty Start Date End Date Ventura Tavares MD [address] [place] [phone] PCP - General Internal Medicine 03/11/14 documented as of this encounter
--- OUTSIDE RECORDS SUMMARY | 2024-11-21 11:28 | XMS_ITS | Encounter Summary ---
Author Organization [employer] [facility] Address [address] [facility] 7t [place] [address] Care Team Providers Care Blankmaker Name Role Phone Ventura Tavares MD Primary Care Provide r Reason for Visit * Reason Onset Date Comments ER Follow-up 10/25/2022 Encounter Details Date Type Department Care Team ([facility] st Contact Info) Description 10/25/2022 Telephone [facility] MEDICINE [address] [place] [address] Ventura Tavares MD [address] [place], [place] [phone] ER Follow-up Social History Tobacco Use Types [...] to report ED visit on 10/25/22 at [facility]. Diagnosed with fall. Patient advised will forward to team nurse for follow up. documented in this encounter Plan of Treatment Upcoming Encounters Date Type Department Care Team (Late st Contact Info) Description 12/04/2024 10:15 AM EDT Office Visit [facility] MEDICINE [address] [place] [address] Ventura Tavares MD [address] [place] [address] documented as of this encounter Visit Diagnoses Not on filedocumented in this encounter Care Teams Blankmaker Relationship Specialty Start Date End Date Ventura Tavares [place] [address] PCP - General Internal Medicine 03/11/14 documented as of this encounter
--- OUTSIDE RECORDS SUMMARY | 2024-11-21 11:28 | XMS_ITS | Encounter Summary ---
Author Organization [employer] Address [address] [facility] [address] [place] [address] Care Team Providers Care Conservator Artifacts Name Role Phone Ventura Tavares MD Primary Care Provide r Encounter Details Date Type Department Care Team ([facility] st Contact Info) Description 01/04/2023 Orders Only [facility] [address] [place] [address] Aime Bland MD [address] [place] [address] Dyspnea, unspecified type (Primary Dx) Social History [...] Description 12/04/2024 10:15 AM EDT Office Visit [facility] MEDICINE [address] [place] [address] Ventura Tavares MD [address] [place] [address] Scheduled Orders Name Type Priority Associated Diagnoses [...] PM EDT Narrative 01/04/2023 2:57 PM EDT ?[facility] ?[address] ?[place] [address] ?XRay Report ? Signed ? Patient: Sindi Obrien ?MR#: M ?? [id number] ? : 1950 ?Acct:[id number] ? Age/Sex: 72 / F ?ADM Date: 01/04/23 ? Loc: HO.HHCX ? Attending Dr: Aime Bland MD ? Ordering Physician: AIME BLAND MD ?? Date of Service: 01/04/23 ?? Procedure(s): XR chest 2V ?? Accession Number(s): [id number] ? cc: AIME BLAND MD ? EXAMINATION: [...] ?01/04/23 ? DD/ 19 ? TD/TT: ? Clothing Trades Workers: HERSON ? Procedure Note Donotniainterpreter, Image - 01/19/2023 [facility] [address] [place] [address] XRay Report Signed Patient: Sindi ObrienMR#: [id number] : 2Acct:[id number] Age/Sex: 72 / FADM Date: 01/04/23 Loc: HO.HHCX Attending Dr: Aime Bland MD Ordering Physician: AIME BLAND MD Date of Service: 01/04/23 Procedure(s): XR chest 2V Accession Number(s): [id number] cc: AIME BLAND MD EXAMINATION: XR CHEST [...] in OV> 01/04/23 1454 DD/ 1420 TD/TT: Clothing Trades Workers: HERSON [facility] External Provider IMG XR PROCEDURES Final Result documented in this encounter Visit Diagnoses Diagnosis Dyspnea, unspecified type- Primary documented in this encounter Additional Health Concerns Assessment Noted Time PHQ-9 Depression Total Score: 12 023 10:55 AM EDT documented as of this encounter Care Teams Conservator Artifacts Relationship Specialty Start Date End Date Ventura Tavares MD [address] [place] [address] PCP - General Internal Medicine 03/11/14 documented as of this encounter
--- OUTSIDE RECORDS SUMMARY | 2024-11-21 11:28 | XMS_ITS | Encounter Summary ---
Author Organization [employer] Address [address] [facility] 7t [place] [address] Care Team Providers Care Grievance Coordinator Name Role Phone Ventura Tavares MD Primary Care Provide r Encounter Details Date Type Department Care Team ([facility] Contact Info) Description 09/20/2022 Orders Only [facility] MED & PEDS [address] [place], [place] [phone] Terra Hannon LPN Social History Tobacco Use [...] Upcoming Encounters Date Type Department Care Team ([facility] Contact Info) Description 12/04/2024 10:15 AM EDT Office Visit [facility] MEDICINE [address] [place], [place] [phone] Ventuar Tavares MD [address] [place], [place] [phone] documented as of this encounter Visit Diagnoses Not on filedocumented in this encounter Care Teams Grievance Coordinator Relationship Specialty Start Date End Date Ventura Tavares MD [address] [place] [phone] PCP - General Internal Medicine 03/11/14 documented as of this encounter
--- OUTSIDE RECORDS SUMMARY | 2024-11-21 11:28 | XMS_ITS | Clinical Summary ---
Author Organization [employer] Address [address] [facility] [address] [place] [address] Care Team Providers Care Criminal Research Specialist Name Role Phone Ventura Tavares MD [...] appears bluish ,regular borders -referred today to park activities coordinator Routine physical examination 04/19/2023 Assessment & Plan [...] Larry spoke with Dr. Cosme's office (her core driller), pt was seen 12/27/2023. We notified the office that her cotton header Dr. Silverio prescribes Lasix 20 mg 2 tabs po daily. 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 Last seen 07/03/2024. Assessment & Plan (05/15/2024 1:05 PM EDT): Seen initially by Dr Demarcus Larry with c/o LE edema and elevated BNP, CXR was unermarkable. Dr. Larry spoke with Dr. Cosme's office (her core driller), pt was seen 12/27/2023. We notified the office that her cotton header Dr. Silverio prescribes Lasix 20 mg 2 tabs po daily. 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 Last seen 12/27/2023. 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 Hyperlipidemia 04/06/2012 Assessment & Plan (09/04/2024 2:05 [...] Plan: As per Endocrinology Eye exam with Office Machine Punch Operator [facility] diagnosed with Dr. both eyes. Last seen 12/06/2023 Pt does not adhere to a diabetic diet, does not want to go any higher on her insulin dose as it was recommended by her Card Player. Pt advised to Adhere to diabetic diet [...] Plan: As per Endocrinology Eye exam with Office Machine Punch Operator [facility] 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 Last seen 12/06/2023 Pt does not adhere to a diabetic diet, does not want to go any higher on her insulin dose as it was recommended by her Card Player. Pt advised to Adhere to diabetic diet [...] 81 mg po daily. Eye exam with Office Machine Punch Operator [facility] diagnosed with DR both eyes 10/26/2016 Pt does not adhere to a diabetic diet, does not want to go any higher on her insulin dose as it was recommended by her Card Player. Pt advised to Adhere to diabetic diet [...] 81 mg po daily. Eye exam with Office Machine Punch Operator [facility] diagnosed with DR both eyes 10/26/2016 Pt does not adhere to a diabetic diet, does not want to go any higher on her insulin dose as it was recommended by her Card Player. Pt advised to Adhere to diabetic diet [...] 81 mg po daily. Eye exam with Office Machine Punch Operator [facility] diagnosed with DR both eyes 10/26/2016 Pt does not adhere to a diabetic diet, does not want to go any higher on her insulin dose as it was recommended by her Card Player. Pt advised to Adhere to diabetic diet [...] 81 mg po daily. Eye exam with Office Machine Punch Operator [facility] diagnosed with DR both eyes 10/26/2016 Pt does not adhere to a diabetic diet, does not want to go any higher on her insulin dose as it was recommended by her Card Player. Pt advised to Adhere to diabetic diet [...] 81 mg po daily. Eye exam with Office Machine Punch Operator [facility] diagnosed with DR both eyes 10/26/2016 Pt does not adhere to a diabetic diet, does not want to go any higher on her insulin dose as it was recommended by her Card Player. Pt advised to Adhere to diabetic diet [...] Type Department Care Team Description 11/20/2024 Refill [facility] [address] [place] [phone] Ventura Tavares MD Pain 10/19/2024 Refill [facility] [address] [place] [address] Ventura Tavares MD 10/08/2024 Orders Only GENERIC EXTERNAL DATA DEPARTMENT Provider, Generic External Data 09/21/2024 Orders Only GENERIC EXTERNAL DATA DEPARTMENT Provider, Generic External Data 09/04/2024 2:15 PM EST Office Visit [facility] [address] [place] [address] Ventura Tavares MD Hyperkalemia (Primary Dx); Type 2 diabetes mellitus with stage 3a chronic kidney disease, with long-term current use of insulin ([facility]); [place] (dyspnea on exertion); Primary hypertension; Stage 3a chronic kidney disease (CMS/HCC); Preventative health care; Mixed hyperlipidemia; 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 (CMS/HCC); Depressive disorder; Lactose intolerance 09/04/2024 Travel 08/27/2024 Telephone [facility] [address] [place] [address] Ventura Tavares MD Error (VOID this visit) [...] 12/04/2024 10:15 AM EDT Office Visit [facility] [address] [place], [place] [phone] Ventura Tavares MD [address] [place] [address] Health Maintenance Due Date Last Done Comments [...] Whole Blood 242(H) 60 - 115 mg/dL [facility] Comment:METER #: [id number] Testing performed in the Endocrinology Department [address] , [address], [facility]. 10/08/2024 12:5 9 PM EDT 10/08/2024 1:02 PM EDT Generic External Data Provider LAB BLOOD ORDERAB LES Final Result Performing Organization Address City/State/[facility] Co de Phone Number [facility] [address] [place] [phone] * (ABNORMAL) POCT HGB A1C (09/04/2024 2:05 PM EST) [facility] Hemoglobin A1C 9.0(A) 4.0 - 6.0 % [...] EDT Narrative 11/06/2023 3:28 PM EDT ? [facility] ? [address] ?[place] [address] ? Mammography Report ? Signed ? Patient: Sindi Obrien ?MR#: M ?? [id number] ? : 1950 ?Acct:[id number] ? Age/Sex: 72 / F ?ADM Date: 10/24/23 ? Loc: HO.MAMMO ? Attending Dr: Ventura Shi MD ? Ordering Physician: Ventura Shi MD ?Resu ?? lts: 2Benign Findings ? Date of Service: 10/24/23 ?Follow Up: 1 Year From Orig ?? inal Mammogram ? Procedure(s): MM tomosynthesis screening BI ?? Accession Number(s): [id number] ? cc: Ventura Shi MD ? EXAMINATION: [...] 1525 ? DD/ 1240 ? TD/TT: ? Car Checker: ? Procedure Note Griselda, Guille - 11/06/2023 [facility] [address] [place] [address] [place] [address] Mammography Report Signed Patient: Sindi Obrien#: M [id number] : 2Acct:[id number] Age/Sex: 72 / FADM Date: 10/24/23 Loc: SAJAN Attending Dr: Ventura Shi MD Ordering Physician: Ventura Shi MDResu lts: 2Benign Findings Date of Service: 10/24/23Follow Up: 1 Year From Orig inal Mammogram Procedure(s): MM tomosynthesis screening BI Accession Number(s): [id number] cc: Ventura Shi MD EXAMINATION: MM SCREENING [...] in OV> 11/06/23 1525 DD/ 1240 TD/TT: Car Checker: us Ventura Maldonado MD IMG BI PROCEDURES Otriz cesar Result - Final * Lipid Panel, Standard (09/30/2023 8:11 AM EST) Triglycerides 50 <150 mg/dL [facility] Comment:Desirable Triglyceri de: less than 150 mg/dLBorderline High Triglyceride 150-199 mg/dLHigh Triglyceride: 200-499 mg/dLVery High Triglyceride: greater than or equal to 5OO mg/dL Cholesterol 143 <200 mg/dL [facility] Comment:Desirable Cholestero l: less than 200 mg/dLBorderline High Cholesterol: 200-239 mg/dLHigh Cholesterol: greater than 239 mg/dL LDL Cholesterol Calculated 64 <100 mg/dL [facility] Comment:Desirable LDL: less than 100 mg/dLNear Optimal/Above Optimal LDL: 110- 129 mg/dLBorderline High LDL: 130-159 mg/dLHigh LDL: 160-189 mg/dLVery High LDL: greater than or equal to 190 mg/dL HDL Cholesterol 69 >40 mg/dL [facility] Comment:Desirable HDL: great er than 40 mg/dL Note: This HDL assay may give artificially low results in patients with liver disease. 09/30/2023 8:11 AM EST 09/30/2023 8:11 AM EST us Generic External Data Provider LAB BLOOD ORDERAB LES Final Result [facility] [address] [place] [phone] * Colonoscopy (09/01/2015) Colonoscopy Normal Normal 09/01/2015 Narrative Brittany Galarza - 09/01/2015 11:54 AM EST Recommended 10 year follow up Historical Provider HEALTH MAINTENANCE Edited Result - Final from Last 3 Months or Most Recently Relevant to Health Maintenance Insurance [facility] LONG-TERM OPTIONS (O D-SNP) [place] [employer] [id number] Care Teams Criminal Research Specialist Relationship Specialty Start Date End Date Ventura Tavares MD [address] [place] [phone] PCP - General Internal Medicine 03/11/14
--- OUTSIDE RECORDS SUMMARY | 2024-11-21 11:28 | XMS_ITS | Encounter Summary ---
Author Organization [employer] Address [address] [place] [address] Care Team Providers Care Pre Parole Counseling Aide Name Role Phone Ventura Tavares MD Primary Care Provide r Encounter Details Date Type Department Care Team ([facility] st Contact Info) Description 07/05/2023 Telephone [facility] [address] [place], [place] [phone] Ventura Tavares MD [address] [place] [address] Social History Tobacco Use Types Packs/Day Years [...] 07/05/2023 2:11 PM EST Tc from farzad (VULNERABILITY RESEARCHER) with [facility] calling to advise provider, a home assessment was done on behalf of CCAand pt A1C came out to be 10.8 Any questions, contact Farzad at [phone] documented in this encounter Plan of Treatment Upcoming Encounters Date Type Department Care Team (Late st Contact Info) Description 12/04/2024 10:15 AM EDT Office Visit [facility] [address] [place], [place] [phone] Ventura Tavares MD [address] [place] [address] documented as of this encounter Visit Diagnoses Not on filedocumented in this encounter Additional Health Concerns Assessment Noted Time PHQ-9 Depression Total Score: 12 023 10:55 AM EDT documented as of this encounter Care Teams Pre Parole Counseling Aide Relationship Specialty Start Date End Date Ventura Tavares MD [address] [place], [place] [phone] PCP - General Internal Medicine 03/11/14 documented as of this encounter
--- OUTSIDE RECORDS SUMMARY | 2024-11-21 11:28 | XMS_ITS | Encounter Summary ---
Author Organization [facility] [facility] Address [address] [facility] 7t [place] [address] Care Team Providers Care Assembler Wet Wash Name Role Phone Ventura Tavares MD Primary Care Provide r Encounter Details Date Type Department Care Team (Late Contact Info) Description 12/01/2022 Abstract [facility] [address] [place] [address] [phone] Ventura Tavares MD [address] [place] [address] [phone] Social History Tobacco Use Types Packs/Day Years [...] 10:15 AM EDT Office Visit [facility] [address] [place] [address] [phone] Ventura Tavares MD [address] [place] [address] [phone] documented as of this encounter Procedures Procedure Name Priority Date/Time Associated Diagnosis Comments HM COLONOSCOPY Routine 09/01/2015 documented in this encounter Results * Colonoscopy (09/01/2015) Colonoscopy Normal Normal 09/01/2015 Brittany Patel - 09/01/2015 11:54 AM EST Recommended 10 year follow up us Historical Provider [facility] Edited Result - Final documented in this encounter Visit Diagnoses Not on filedocumented in this encounter Care Teams Assembler Wet Wash Relationship Specialty Start Date End Date Ventura Tavares MD [address] [place] [address] PCP - General Internal Medicine 03/11/14 documented as of this encounter
--- OUTSIDE RECORDS SUMMARY | 2024-11-21 11:28 | XMS_ITS | Clinical Summary ---
Author Organization [facility] Address [address] [place] [address] [address] [place] [phone] Phone Care Team Providers Care Heel Sprayer Name Role Phone Ventura Schulz MD Primary [...] & Plan: Improving Pt seen at our [facility] by Dr Demarcus Larry, [place] negative [...] complete this topic Insurance ([id number]) [place] [employer] [id number] [facility] ([id number]) [place] [id number] Care Teams Heel Sprayer Relationship Specialty Start Date End Date Ventura Schulz MD [address] [facility] [place] [address] PCP - General 08/04/20
== END 2024-11-21 10:59 | disposition home or self-care (01) ==
LOC: HO.HKA 10:16
PROVIDERS: PCP Internal Medicine; Visit Provider Internal Medicine Nephrology
DX: E11.22 Type 2 diabetes mellitus with diabetic chronic kidney disease (principal); N18.30 Chronic kidney disease, stage 3 unspecified; I10 Essential (primary) hypertension
CPT/HCPCS: 99214

== ENCOUNTER → 2024-11-21 10:16 | Outpatient (BNVA) | payer OTHER, SELFPAY | PROVIDERS: PCP Internal Medicine; Visit Provider Internal Medicine Nephrology | DX: E11.22 Type 2 diabetes mellitus with diabetic chronic kidney disease (principal); I12.9 Hypertensive chronic kidney disease with stage 1 through stage 4 chronic kidney disease, or unspecified chronic kidney disease; N18.30 Chronic kidney disease, stage 3 unspecified | CPT/HCPCS: 99212 ==

== ENCOUNTER 2024-11-29 08:15 | Outpatient (REF) | payer OTHER, SELFPAY ==
[2024-11-29 11:40] LABS: Anion Gap 12 (12-20); Blood Urea Nitrogen 38 mg/dL (9-16); Carbon Dioxide 29 mmol/L (22-29); Chloride 109 mmol/L (96-108); Cholesterol 131 mg/dL (<200); Estimated Glomerular Filt Rate 35; Glucose Random 80 mg/dL (60-115); HDL Cholesterol 66 mg/dL (>40); LDL Cholesterol Calculated 54 mg/dL (<100); Potassium 4.8 mmol/L (3.3-5.1); Sodium 145 mmol/L (135-145); Triglycerides 56 mg/dL (<150)
== END 2024-11-29 08:16 | disposition home or self-care (01) ==
LOC: HO.HHCL 08:15
PROVIDERS: Visit Provider Internal Medicine
DX: I10 Essential (primary) hypertension (principal); E78.2 Mixed hyperlipidemia
CPT/HCPCS: 36415; 80048; 80061

== ENCOUNTER 2024-12-18 08:46 | Outpatient (REF) | payer OTHER, SELFPAY ==
--- OUTSIDE RECORDS SUMMARY | 2024-12-18 09:07 | XMS_ITS | Clinical Summary ---
Author Organization [employer] Address [address] [facility] [address] [place] [address] Care Team Providers Care Graphite Mill Operator Name Role Phone Ventura Tavares MD Primary Care Provide r Garrison Silverio MD Unavailable Allergies Active Allergy Reactions Criticality Noted Date [...] OR INSTRUCTED BY . 30 patch 2 Active furosemide (Lasix) 20 MG tablet Take [...] tablet by mouth Once per day. Active Continuous Glucose Sensor (FreeStyle Blake 3 Sensor) [facility] USE DIRECTED TO CHECK BLOOD SUGAR CHANGE EVERY 14 DAYS 1 each 3 025 Active gabapentin (Neurontin) 300 MG capsuleIndication s:Pain TAKE 1 CAPSULE BY MOUTH AT BEDTIME 90 capsule 025 Active gabapentin (Neurontin) 300 MG capsuleIndication s:Pain TAKE 1 CAPSULE BY MOUTH AT BEDTIME 90 capsule 025 2024 Discontinued Active Problems Problem Noted Date [...] lb ) Hyperkalemia 05/24/2024 Assessment & Plan (12/04/2024 10:06 AM EDT): Resolved Follows with Nephrology, last seen 11/21/2024 On Kayexalate 30 grams twice a week per Nephrology Assessment & Plan (09/04/2024 1:58 PM EST): [...] appears bluish ,regular borders -referred today to laborer [facility] Routine physical examination 04/19/2023 Assessment & Plan [...] Larry spoke with Dr. Cosme's office (her caravan park and camping ground manager), pt was seen 12/27/2023. We notified the office that her food chemist Dr. Silverio prescribes Lasix 20 mg 2 tabs po daily. Patient followed by Dr Cosme Collection Systems Foreman, Previous Stress Test and ECHO unremarkable. Last seen 07/03/2024. Assessment & Plan (05/15/2024 1:05 PM EDT): Seen initially by Dr Demarcus Larry with c/o LE edema and elevated BNP, CXR was unermarkable. Dr. Larry spoke with Dr. Cosme's office (her caravan park and camping ground manager), pt was seen 12/27/2023. We notified the office that her food chemist Dr. Silverio prescribes Lasix 20 mg 2 tabs po daily. Patient followed by Dr Cosme Collection Systems Foreman, Previous Stress Test and ECHO unremarkable. Last seen 12/27/2023. Assessment & Plan (09/22/2023 11:38 AM EST): Seen by Dr Demarcus Larry with c/o LE edema, referred to cardiology seen by Dr Cosme Collection Systems Foreman, Stress Test and ECHO unremarkable Assessment & Plan (01/18/2023 10:50 AM EDT): Seen by Dr Demarcus Larry with c/o LE edema, referred to cardiology seen by Dr Cosme 01/06/2023 ECHO ordered [facility] care 01/18/2023 Assessment & Plan (12/04/2024 10:22 AM EDT): Mammogram: Abnormal 05/05/2022 Biopsy 06/09/2022 Negative for malignancy repeat 10/24/2023 Normal Pap Smear: NL: 12/16/2005 s/p KATHARINA 20 years ago, no need to continue Colonoscopy: 09/01/2015 Dr Zamarripa Nl 10 year f/u Assessment & Plan (09/04/2024 2:05 PM EST): [...] 2 diabetes mellitus 01/18/2017 Assessment & Plan (12/04/2024 10:02 AM EDT): Last seen by Opthalmology 12/06/2023 Under the care of retina specialist Assessment & Plan (09/04/2024 2:13 PM EST): Last seen by Opthalmology 12/06/2023 Under the care of retina specialist Assessment & Plan (09/22/2023 11:42 AM EST): Last seen by Opthalmology 08/25/2023 Under the care of retina specialist Assessment & Plan (01/18/2023 10:53 AM EDT): Under the care of retina specialist Hypertension 04/06/2012 Assessment & Plan (12/04/2024 10:10 AM EDT): Pt here for a f/u BP controlled She is on a regimen of: Metoprolol 25 mg po BID. Lasix 20 mg po 2 tabs daily (nephrology),and Hydralazine BID. She is no longer on Norvasc. Most recent electrolytes Creatinine done on: Lab Results Component Value Date NA 145 11/29/2024 NA 140 06/22/2024 K 4.8 11/29/2024 K 4.5 06/22/2024 CL 109 (H) 11/29/2024 CL 105 06/22/2024 BUN 38 (H) 11/29/2024 BUN 35 (H) 06/22/2024 CREATININE 1.48 (H) 11/29/2024 CREATININE 1.87 (H) 06/22/2024 Counseled about taking her medications regularly Plan: continue with current regimen Patient advised to adhere to a low sodium diet, encouraged about medication compliance, counseled about weight loss. Assessment & Plan (09/04/2024 2:04 PM EST): [...] III (moderat e) 04/06/2012 Assessment & Plan (12/04/2024 10:07 AM EDT): Under the care of Nephrology seen in 11/21/2024 Assessment & Plan (09/04/2024 2:04 PM EST): [...] Plan (09/04/2024 2:14 PM EST): Seeing Trinh Georges at [facility] Hyperlipidemia 04/06/2012 Assessment & Plan (12/04/2024 10:06 AM EDT): Last Lab Results Component Value Date TRIG 56 11/29/2024 TRIG 50 09/30/2023 CHOL 131 11/29/2024 CHOL 143 09/30/2023 LDLCHOLCAL 54 11/29/2024 LDLCHOLCAL 64 09/30/2023 HDL 66 11/29/2024 HDL 69 09/30/2023 On Atorvastatin 40 mg po qhs Assessment & Plan (09/04/2024 2:05 PM EST): Last Lab Results Component Value Date TRIG 50 09/30/2023 TRIG 64 12/31/2022 CHOL 143 09/30/2023 LDLCHOLCAL 64 09/30/2023 HDL 69 09/30/2023 Will repeat Osteoarthritis 04/06/2012 Type 2 diabetes mellitus 04/06/2012 Assessment & Plan (12/04/2024 12:35 PM EDT): Patient is here for a follow up Back under the care of Endocrinology , last seen 10/08/2024 Dm improving hgb A1c 12/04/2024: 8.1 from 9 She is on a regimen of: Lantus 30 units sc at pm and Novolog 5 units sc before meals. Restarted taking trulicity 1.5 once a week and Jardiance 25 mg (increase by Renal) Microalbumin on 06/22/2024 was 276 pt is off ARB. Foot check: , moderate reduction in peripheral sensation on R foot, mild reduction L foot. On asa 81 mg po daily. Plan: As per Endocrinology Eye exam with An/Syq 13 Nav/C2 Operator [facility] 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 Last seen 12/06/2023, today I have prompted her to call and schedule her follow up. Pt advised to Adhere to diabetic diet 3 months f/u Assessment & Plan (09/04/2024 2:11 PM EST): [...] Plan: As per Endocrinology Eye exam with An/Syq 13 Nav/C2 Operator [facility] diagnosed with Dr. both eyes. Last seen 12/06/2023 Pt does not adhere to a diabetic diet, does not want to go any higher on her insulin dose as it was recommended by her Section [employer] Activities Clerk. Pt advised to Adhere to diabetic [...] Plan: As per Endocrinology Eye exam with An/Syq 13 Nav/C2 Operator [facility] 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 Last seen 12/06/2023 Pt does not adhere to a diabetic diet, does not want to go any higher on her insulin dose as it was recommended by her [employer] Activities Clerk. Pt advised to Adhere to diabetic [...] 81 mg po daily. Eye exam with An/Syq 13 Nav/C2 Operator [facility] diagnosed with DR both eyes 10/26/2016 Pt does not adhere to a diabetic diet, does not want to go any higher on her insulin dose as it was recommended by her [employer] Activities Clerk. Pt advised to Adhere to diabetic [...] 81 mg po daily. Eye exam with An/Syq 13 Nav/C2 Operator [facility] diagnosed with DR both eyes 10/26/2016 Pt does not adhere to a diabetic diet, does not want to go any higher on her insulin dose as it was recommended by her [employer] Activities Clerk. Pt advised to Adhere to diabetic [...] 81 mg po daily. Eye exam with An/Syq 13 Nav/C2 Operator [facility] diagnosed with DR both eyes 10/26/2016 Pt does not adhere to a diabetic diet, does not want to go any higher on her insulin dose as it was recommended by her [employer] Activities Clerk. Pt advised to Adhere to diabetic [...] 81 mg po daily. Eye exam with An/Syq 13 Nav/C2 Operator [facility] diagnosed with DR both eyes 10/26/2016 Pt does not adhere to a diabetic diet, does not want to go any higher on her insulin dose as it was recommended by her Section [employer] Activities Clerk. Pt advised to Adhere to diabetic [...] 81 mg po daily. Eye exam with An/Syq 13 Nav/C2 Operator [facility] diagnosed with DR both eyes 10/26/2016 Pt does not adhere to a diabetic diet, does not want to go any higher on her insulin dose as it was recommended by her [employer] Activities Clerk. Pt advised to Adhere to diabetic diet Plan: Refer back to Endocrinology 3 month f/u Severe obesity 04/06/2012 Assessment & Plan (12/04/2024 10:08 AM EDT): Patient has been counseled and educated about diet and exercise. Personal goal of weight loss discussed Patient has comorbidity of: DM Lost 7 lbs on Trulicity Dietary Recommendations: Fruits, vegetables, whole grains, protein foods, and fat-free or low-fat dairy products are healthy choices. Eat different types of protein foods in your diet. This can include seafood, lean meats, poultry, beans, peas, lentils, nuts, seeds, soy products, and eggs. Limit foods and beverages higher in added sugars, saturated fat, and sodium. Exercise Recommendations: At least 150 minutes of moderate-intensity physical activity per week, or an equivalent combination of moderate-intensity activity Assessment & Plan (09/22/2023 1:36 PM EST): [...] Encounters Date Type Department Care Team Description 12/17/2024 Refill [facility] MED[facility] [address] [place] [address] Ventura Tavares MD 12/04/2024 10:15 AM EDT Office Visit [facility] [address] [place] [address] Ventura Tavares MD Type 2 diabetes mellitus with stage 3a chronic kidney disease, with long-term current use of insulin (CMS/[facility]ER[facility]) (Primary Dx); 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 (CMS/HCC); Primary hypertension; Mixed hyperlipidemia; Hyperkalemia; Stage 3a chronic kidney disease (CMS/HCC); Severe obesity (CMS/[facility]ER[facility]); Dietary counseling; Exercise counseling; Preventative health care; Encounter for screening mammogram for malignant neoplasm of breast; Breast cancer screening by mammogram 12/04/2024 Travel 12/03/2024 Telephone [facility] [address] [facility] [place] [address] Ventura Tavares MD chartprep 11/21/2024 Refill [facility] [address] [facility] [place] [address] Ventura Tavares MD Pain 11/20/2024 Refill [facility] [address] [facility] [place] [address] Ventura Tavares MD Pain 10/19/2024 Refill [facility] [address] [facility] [place] [address] Ventura Tavares MD 10/08/2024 Orders Only GENERIC EXTERNAL DATA DEPARTMENT Provider, Generic External Data 09/21/2024 Orders Only GENERIC EXTERNAL DATA DEPARTMENT Provider, Generic External Data from Last 3 Months Immunizations Immunization Administration Dates Next Due Influenza High-dose Quadriva [...] Sign Reading Time Taken Comments Blood Pressure 144/82 12/04/2024 10:12 AM EDT Pulse 72 12/04/2024 10:00 AM EDT Temperature 36.2 ??C (97.1 ??F) 12/04/2024 10:00 AM E DT Respiratory Rate 20 12/04/2024 10:00 AM EDT Oxygen Saturation 97% 12/04/2024 10:00 AM EDT Inhaled Oxygen Concentration - - Weight 73.5 kg (162 lb) 12/04/2024 10:00 AM EDT Height 134.6 cm (4' 5 ) 12/04/2024 10:00 AM EDT Body Mass Index 40.55 12/04/2024 10:00 AM EDT Plan of Treatment Upcoming Encounters Date Type Department Care Team (Late st Contact Info) Description 03/11/2025 11:15 AM EDT Office Visit [facility] OPTOMETRY [address] [place] [address] Tarka, Milagros, OD [address] [place] [address] 03/19/2025 3:00 PM EDT Office Visit [facility] MEDICINE [address] [place] [address] Ventura Tavares MD [address] [place] [address] Health Maintenance Due Date Last Done Comments CT Colonography 1950 FIT DNA/Cologuard 1950 FIT 1950 FOBT 1950 Sigmoidoscopy 1950 Diabetes: Foot Exam 11/04/1961 Eye Exam 11/04/1961 Hepatitis C Screening 11/04/1969 RSV Patients and Patients Aged 60 years or older (1 - Risk 60-74 years 1-dose series) 2011 Zoster Vaccines (2 of 3) 04/01/2015 02/04/2015 Mammogram 10/23/2024 10/24/2023, 04/24, 05/05/2022, Additional history exists COVID-19 Vaccine ( season) 2024 05/15/2024, 07/28/2022, 06/24/2021, Additional history exists Diabetes: Hemoglobin A1C 03/06/2025 025, 09/04/2024, 06/22/2024, Additional history exists Alcohol/Substance Use Screening 05/15/2025 05/15/2024 Depression Screening 05/15/2025 05/15/2024, 05/15/20 24 SDOH Screening 05/15/2025 05/15/2024 Colonoscopy 09/01/2025 09/01/2015 Colorectal Cancer Screening 09/01/2025 Lipid Panel 11/29/2025 11/29/2024, 03/0 02/2024, 12/31/2022, Additional history exists Tobacco Screening 12/04/2025 12/04/2024 DTaP/Tdap/Td Vaccines (2 - Td or Tdap) 02/13/2031 02/13/2021, 10/15/2010 Influenza Vaccine Completed 05/15/2024, , 04/26/2023, Additional [...] patient's age to complete this topic Meningococcal B Vaccine Aged Out No l onger eligible based on patient's age to complete [...] Diagnosis Comments POCT GLYCATED HEMOGLOBIN, TOTAL Routine 12/04/2024 10:30 AM EDT Type 2 diabetes mellitus with stage 3a chronic kidney disease, with long-term current use of insulin ([facility]) POCT GLUCOSE Routine 12/04/2024 10:27 AM EDT Type 2 diabetes mellitus with stage 3a chronic kidney disease, with long-term current use of insulin ([facility]) BASIC METABOLIC PANEL Routine 11/29/2024 8:20 AM EDT Primary hypertension LIPID PANEL, STANDARD Routine 11/29/2024 8:20 AM EDT Mixed hyperlipidemia GLUCOSE, WHOLE BLOOD Routine 10/08/2024 12:59 PM EDT GLUCOSE, WHOLE BLOOD Routine 09/21/2024 1:07 PM EST BI MAMMOGRAM SCREENING TOMOSYNTHESIS BILATERAL Routine 10/24/2023 12:40 PM EDT HM COLONOSCOPY Routine 09/01/2015 from Last 3 Months or Most Recently Relevant to Health Maintenance Results * (ABNORMAL) POCT HGB A1C (12/04/2024 10:30 AM EDT) Hemoglobin A1C 8.1(A) 4.0 - 6.0 % QC Media Lot # [id number] Lot# Expiration Date Blood 12/04/2024 10:3 0 AM EDT Ventura Maldonado MD POINT OF CARE TEST EN TER/EDIT ORDERABLES Final Result * POCT Glucose (12/04/2024 10:27 AM EDT) Glucose Blood, POC 150 60 - 200 mg/dL QC Media Lot # [id number] Lot# Expiration Date [id number] Blood Capillary blood specimen / Unknown 12/04/2024 10:27 AM EDT Ventura Maldonado MD POINT OF CARE TEST EN TER/EDIT ORDERABLES Final Result * Lipid Panel, Standard (11/29/2024 8:20 AM EDT) Triglycerides 56 <150 mg/dL [facility] Comment:Desirable Triglyceri de: less than 150 mg/dLBorderline High Triglyceride 150-199 mg/dLHigh Triglyceride: 200-499 mg/dLVery High Triglyceride: greater than or equal to 5OO mg/dL Cholesterol 131 <200 mg/dL [facility] Comment:Desirable Cholestero l: less than 200 mg/dLBorderline High Cholesterol: 200-239 mg/dLHigh Cholesterol: greater than 239 mg/dL LDL Cholesterol Calculated 54 <100 mg/dL [facility] Comment:Desirable LDL: less than 100 mg/dLNear Optimal/Above Optimal LDL: 110- 129 mg/dLBorderline High LDL: 130-159 mg/dLHigh LDL: 160-189 mg/dLVery High LDL: greater than or equal to 190 mg/dL HDL Cholesterol 66 >40 mg/dL [facility] Comment:Desirable HDL: great er than 40 mg/dL Note: This HDL assay may give artificially low results in patients with liver disease. Blood Venous blood specimen / Unknown 11/29/2024 8:20 AM EDT 11/29/2024 11:12 AM EDT Ventura Maldonado MD LAB BLOOD ORDERABLES Final Result [facility] [address] [place] [phone] * (ABNORMAL) Basic Metabolic Panel (11/29/2024 8:20 AM EDT) Sodium 145 135 - 145 mmol/L [facility] Potassium 4.8 3.3 - 5.1 mmol/L [facility] Chloride 109(H) 96 - 108 mmol/L [facility] Carbon Dioxide 29 22 - 29 mmol/L [facility] Anion Gap 12 12 - 20 [facility] Urea Nitrogen (BUN) 38(H) 9 - 16 mg/dL [facility] Creatinine, Serum 1.48(H) 0.5 - 1.4 mg/dL [facility] Estimated Glomerular Filt Rate 35 [facility] Comment:Chronic Kidney Disea se: Estimated GFR < 60 mL/min/[id number] Kidney Disease: Estimated GFR < 15 mL/min/1.73m2 Glucose 80 60 - 115 mg/dL [facility] Calcium 9.0 8.4 - 10.2 mg/dL [facility] Blood Venous blood specimen / Unknown 11/29/2024 8:20 AM EDT 11/29/2024 11:12 AM EDT us Ventura Maldonado MD LAB BLOOD ORDERABLES Final Result Performing Organization Address City/[facility]/ZIP Co de Phone Number [facility] [address] [place] [phone] * (ABNORMAL) Glucose, Whole Blood (10/08/2024 12:59 PM EDT) Only the most recent of2 resultswithin the time period is included. Glucose, Whole Blood 242(H) 60 - 115 mg/dL [facility] Comment:METER #: [id number] Testing performed in the Endocrinology Department [address] , [address], [facility]. 10/08/2024 12:5 9 PM EDT 10/08/2024 1:02 PM EDT us Generic External Data Provider LAB BLOOD ORDERAB LES Final Result Performing Organization Address City/[facility]/ZIP Co de Phone Number [facility] [address] [place] [phone] * BI Mammogram Screening Tomosynthesis Bilateral (10/24/2023 12:40 PM EDT) Anatomical Region Laterality Modality Breast Bilateral Mammography 10/24/2023 12:4 0 PM EDT Narrative 11/06/2023 3:28 PM EDT ? [facility] ? [address] ?[place] [address] ? Mammography Report ? Signed ? Patient: Sindi Obrien ?MR#: [id number] ?? [id number] ? : 1950 ?Acct:[id number] ? Age/Sex: 72 / F ?ADM Date: 10/24/23 ? Loc: HO.MAMMO ? Attending Dr: Ventura Shi MD ? Ordering Physician: Ventura Shi MD ?Resu ?? lts: 2Benign Findings ? Date of Service: 10/24/23 ?Follow Up: 1 Year From Orig ?? inal Mammogram ? Procedure(s): MM tomosynthesis screening BI ?? Accession Number(s): [id number] ? cc: Ventura Shi MD ? EXAMINATION: [...] 1525 ? DD/ 1240 ? TD/TT: ? Beet End Supervisor: ? Procedure Note Griselda, Image - 11/06/2023 [facility] [address] [place] [address] Dr. Santiago, [place] [address] Mammography Report Signed Patient: Sindi Obrien#: M [id number] : 2Acct:[id number] Age/Sex: 72 / FADM Date: 10/24/23 Loc: SAJAN Attending Dr: Ventura Shi MD Ordering Physician: Ventura Shi MDResu lts: 2Benign Findings Date of Service: 10/24/23Follow Up: 1 Year From Orig inal Mammogram Procedure(s): MM tomosynthesis screening BI Accession Number(s): [id number] cc: Ventura Shi MD EXAMINATION: MM SCREENING [...] in OV> 11/06/23 1525 DD/ 1240 TD/TT: Beet End Supervisor: Ventura Maldonado MD IMG BI PROCEDURES Ortiz cesar Result - Final * Hm Colonoscopy (09/01/2015) Colonoscopy Normal Normal 09/01/2015 Brittany Patel - 09/01/2015 11:54 AM EST Recommended 10 year follow up Historical Provider HEALTH MAINTENANCE Edited Result - Final from Last 3 Months or Most Recently Relevant to Health Maintenance Insurance [employer] (HMO D-SNP) [place] [id number] Care Teams Graphite Mill Operator Relationship Specialty Start Date End Date Ventura Tavares MD [address] [place] [phone] PCP - General Internal Medicine 03/11/14 Garrison Silverio MD [address] [place] [address] Drive [address] [place] [address] Nephrology 11/29/24
[2024-12-18 11:23] LABS: Anion Gap 13 (12-20); Blood Urea Nitrogen 37 mg/dL (9-16); Carbon Dioxide 27 mmol/L (22-29); Chloride 107 mmol/L (96-108); Estimated Glomerular Filt Rate 34; Potassium 4.7 mmol/L (3.3-5.1); Sodium 142 mmol/L (135-145)
== END 2024-12-18 08:47 | disposition home or self-care (01) ==
LOC: HO.HHCL 08:46
PROVIDERS: Internal Medicine; Visit Provider Internal Medicine Nephrology
DX: R06.83 Snoring (principal); E11.22 Type 2 diabetes mellitus with diabetic chronic kidney disease; N18.30 Chronic kidney disease, stage 3 unspecified; E87.5 Hyperkalemia; I10 Essential (primary) hypertension; N18.31 Chronic kidney disease, stage 3a; Z79.4 Long term (current) use of insulin
CPT/HCPCS: 36415; 80051; 82306; 82565; 84520

== ENCOUNTER 2024-12-24 12:56 | Outpatient (AMB) | payer OTHER, SELFPAY ==
--- NOTE | 2024-12-24 13:02 | MHC.OFFVIS ---
Vital Signs 12/24/24 13:03 Height 4 ft 5 in Weight 161 lb 9.581 oz BMI 40.4 BP 138/78 Blood Pressure Location Lt brachial Position Sitting Pulse 71 Pulse Source Pulse Oximeter Pulse Oximetry (%) 98 Oxygen Delivery Method Room Air Intake Visit Reasons: T2DM Intake Note: Patient present today for Type 2 Diabetes Mellitus Last Diabetic eye exam: 06/2024 Last Podiatry Visit: 11/2024 Random Glucose: 126 mg/dl HgA1C: 8.5% Staff Counsel Required: Yes Staff Counsel Language: House Painter Helper Services: Staff Counsel Offered & Declined Accompanied by: Daughter Allergies metformin [From GLUCOPHAGE] Adverse Reaction (Unknown, Verified 12/24/24 13:09) DIARRHEA Medication List - Last Reconciled 12/24/24 by Suyapa Best PA-C acetaminophen (Tylenol Extra Strength) 1,000 mg (2 x 500 mg) PO QID PRN aspirin 81 mg PO DAILY atorvastatin 40 mg PO BEDTIME blood sugar diagnostic (FreeStyle Lite Strips) As directed three times a day blood-glucose sensor (FreeStyle Blake 3 Sensor device) Apply every 14 days As directed blood-glucose sensor (FreeStyle Blake 3 Plus Sensor device) Use daily As directed to monitor glucose blood-glucose,slicing machine operator,cont (FreeStyle Blake 3 [place]) Use daily As directed to monitor type 2 diabetes blood-glucose,slicing machine operator,cont (FreeStyle Blake 3 [place]) As directed empagliflozin 25 mg PO QAM 30 days furosemide 40 mg (2 x 20 mg) PO DAILY gabapentin 300 mg PO BEDTIME hydralazine 25 mg PO BID insulin aspart U-100 (Novolog FlexPen U-100 Insulin aspart) 6 units subcut TID insulin glargine 30 units (0.3 mL) subcut BEDTIME 90 days lancets (TRUEplus Lancets) As directed 3x/day metoprolol tartrate 25 mg PO BID pen needle, diabetic (BD Kelly 2nd Gen Pen Needle) 5 times a day sodium polystyrene sulfonate 30 grams PO .once a week HPI HPI T2DM: Details: Patient is a 74-year-old female with a significant past medical history of CKD, peripheral neuropathy, PB, hypertension, type 2 diabetes, insulin-dependent, prior CVA presenting today for follow-up regarding her diabetes. Radha here for translation. Endo: Her last A1c was 9.5 and today it is 8.5. She is supposed to be on Lantus 30 units but has only been doing 25 units and NovoLog 6-8 units t.i.d. but only uses it 1 to 2 times a day, despite eating 4-5 big meals a day, jardiance 25 mg, and trulicity 1.5 mg weekly. She has no adverse effects to the Trulicity. She has noted some appetite suppression. She is eating healthier. No weight loss -mounjaro caused diarrhea so she discontinued, ozempic did not tolerate. CGM- Very high 21%, high 26%, in range 53%,, no low blood sugars. CV: Blood pressure today in the office is 100/50. It is usually a little bit higher.. She is currently on metoprolol 25 mg b.i.d., hydralazine 25 mg twice a day, furosemide 40 mg daily. cholesterol is controlled with atorvastatin 40 mg. Last LDL was 64. She follows Cardiology and Nephrology. 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 Diabetic nephropathy associated with type 2 diabetes mellitus Dyslipidemia Diabetes type 2, uncontrolled Surgical History Hx of tubal ligation Hx of bilateral cataract extraction Hx of hysterectomy History of appendectomy Family History Father Cancer Mother Diabetes mellitus Social History Household Members: None Housing: Apartment Do you presently have visiting nurse or other home services: Yes Alcohol intake: never Patient Tobacco Use Status: Never used Tobacco Second Hand Smoke Exposure: No Advance Directives Date on File: 11/26/20 service: No Current occupational status: disabled Current occupation: rt handed Female Reproductive History Menstrual Age of Menarche: 12 Physical Exam Vital Signs: Last Vital Signs Pulse 71 12/24/24 13:03 BP 138/78 12/24/24 13:03 Pulse Ox 98 06/02/25 13:03 Oxygen Delivery Method Room Air 12/24/24 13:03 BMI result Body Mass Index 40.4 Const Orientation/consciousness: patient oriented x3 Neck Neck: Yes no lymphadenopathy Thyroid: Thyroid normal Carotids: no bruits Resp Auscultation: clear to auscultation bilaterally Cardio Rate: regular rate Rhythm: regular rhythm Heart sounds: S1 normal heart sound present and S2 normal heart sound present Peripheral pulses: dorsalis pedis present Neuro General: patient oriented x3, gait normal and no focal motor deficits Extrem Other: Monofilament sensation intact bilaterally. Vibratory sensation decreased on the left, intact on the right. Skin intact. General: Yes normal to inspection Results Reviewed Results Reviewed: Laboratory Last Values Glucose (Clinic) 126 mg/dL (60-115) H 12/24/24 13:11 Laboratory Tests 09/21/24 11/29/24 12/18/24 13:10 08:20 08:49 Sodium 142 Potassium 4.7 Chloride 107 Carbon Dioxide 27 Anion Gap 13 BUN 37 H Creatinine 1.49 H Estimated GFR 34 Hgb A1c (Clinic) 9.5 H Triglycerides 56 Cholesterol 131 LDL Cholesterol, Calc 54 HDL Cholesterol 66 Assessment & Plan Assessment & Plan (1) Diabetic nephropathy associated with type 2 diabetes mellitus: Code(s): E11.21 - Type 2 diabetes mellitus with diabetic nephropathy Category: Medical Plan: increase Lantus to 30 units discussed compliance of NovoLog and how to take this prior to eating as right now she takes this after eating and only once or twice a day. Increase Trulicity to 3 mg weekly continue Jardiance 25 mg daily labs ordered. Follow up in 3 months. Sooner if needed. Patient understands and agrees with this Discussed the importance of overall medication compliance and the risks associated with diabetes including stroke, heart attack, amputation, kidney disease etc.. (2) Hypertension: Code(s): I10 - Essential (primary) hypertension Category: Medical Qualifiers: Hypertension type: primary hypertension Qualified Code(s): I10 - Essential (primary) hypertension Plan: continue current regimen (3) CKD stage 3 due to type 2 diabetes mellitus: Code(s): E11.22 - Type 2 diabetes mellitus with diabetic chronic kidney disease; N18.30 - Chronic kidney disease, stage 3 unspecified Category: Medical Plan: being followed by Nephrology (4) Morbid obesity with BMI of 40.0-44.9, adult: Code(s): E66.01 - Morbid (severe) obesity due to excess calories; Z68.41 - Body mass index [BMI] 40.0-44.9, adult Category: Medical Plan: no weight loss recently. Endorses a poor diet. States that she is going to work harder on this. Orders: Orders Hemoglobin A1c Today E11.21 - Type 2 diabetes mellitus with diabetic nephropathy, E11.22 - Type 2 diabetes mellitus with diabetic chronic kidney disease, I10 - Essential (primary) hypertension, N18.30 - Chronic kidney disease, stage 3 unspecified, R73.01 - Impaired fasting glucose Lipid Panel Today E11.21 - Type 2 diabetes mellitus with diabetic nephropathy, E11.22 - Type 2 diabetes mellitus with diabetic chronic kidney disease, I10 - Essential (primary) hypertension, N18.30 - Chronic kidney disease, stage 3 unspecified AMB Hemoglobin A1c Today E11.65 - Type 2 diabetes mellitus with hyperglycemia, Z13.9 - Encounter for screening, unspecified Comprehensive [place]. Panel Fast Today E11.21 - Type 2 diabetes mellitus with diabetic nephropathy, E11.22 - Type 2 diabetes mellitus with diabetic chronic kidney disease, I10 - Essential (primary) hypertension, N18.30 - Chronic kidney disease, stage 3 unspecified Medications: New dulaglutide (Trulicity) 3 mg (0.5 mL) subcut QWEEK 2 mL 4RF insulin aspart U-100 (Novolog FlexPen U-100 Insulin aspart) with meals 6 units (0.06 mL) subcut TID 15 mL 3RF E11.65 - Type 2 diabetes mellitus with hyperglycemia Coding Level of Care Code Est Pt Level 4 (59177) Complex EM visit Add On G2211 Diagnoses Diabetic nephropathy associated with type 2 diabetes mellitus E11.21 Primary hypertension I10 Hypertension type: primary hypertension CKD stage 3 due to type 2 diabetes mellitus E11.22; N18.30 Morbid obesity with BMI of 40.0-44.9, adult E66.01; Z68.41
[2024-12-24 13:03] VITALS: BP 138/78; PULSE 71; O2SAT 98; BMI 40.4
[2024-12-24 13:15] LABS: Glucose, Whole Blood 126 mg/dL (60-115)
--- OUTSIDE RECORDS SUMMARY | 2024-12-24 13:58 | XMS_ITS | Clinical Summary ---
Author Organization [employer] Address [address] [place] [address] Care Team Providers Care Award Machine Operator Name Role Phone Ventura Tavares MD Primary Care Provide r Garrison Silverio MD Unavailable Allergies Active Allergy Reactions Criticality Noted Date Comments Lisinopril Cough 07/23/2010 Metformin Diarrhea,Unknown 07/23/2010 Medications NovoLOG FLEXPEN 100 UNIT/ML pen INJECT 18 TO 20 UNITS BY SUBCUTANEOUS ROUTE THREE TIMES DAILY BEFORE MEALS 30 mL 6 023 Active acetaminophen (Tylenol) 500 MG tablet Take [...] OR INSTRUCTED BY . 30 patch 2 024 Active furosemide (Lasix) 20 MG tablet [...] Continuous Glucose Sensor (FreeStyle Blake 3 Sensor) [facility] [place] USE DIRECTED TO CHECK BLOOD SUGAR CHANGE EVERY 14 DAYS 1 each 3 025 Active gabapentin (Neurontin) 300 MG capsuleIndication s:Pain TAKE 1 CAPSULE BY MOUTH AT BEDTIME 90 capsule 025 Active hydrALAZINE (Apresoline) 25 MG tablet TAKE 1 TABLET BY MOUTH TWICE DAILY IN THE MORNING AND AT BEDTIME 180 tablet 1 Active cholecalciferol (Vitamin D-3) 25 MCG (1000 UT) tabletIndications :Low vitamin D level Take 1 tablet (25 mcg) by mouth Once per day. 30 tablet 6 025 Active hydrALAZINE (Apresoline) 25 MG tablet TAKE 1 TABLET BY MOUTH TWICE A DAY 180 tablet 3 024 2024 Discontinued gabapentin (Neurontin) 300 MG capsuleIndication s:Pain TAKE [...] appears bluish ,regular borders -referred today to addictions recovery specialist Routine physical examination 04/19/2023 Assessment & Plan [...] Larry spoke with Dr. Cosme's office (her lei seller), pt was seen 12/27/2023. 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 Silverio prescribes Lasix 20 mg 2 tabs po daily. Patient followed by Dr Cosme Manager Inpatient, Previous Stress Test and ECHO unremarkable. Last seen 07/03/2024. Assessment & Plan (05/15/2024 1:05 PM EDT): Seen initially by Dr Demarcus Larry with c/o LE edema and elevated BNP, CXR was unermarkable. Dr. Larry spoke with Dr. Cosme's office (her lei seller), pt was seen 12/27/2023. 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 Silverio prescribes Lasix 20 mg 2 tabs po daily. Patient followed by Dr Cosme Manager Inpatient, Previous Stress Test and ECHO unremarkable. Last seen 12/27/2023. Assessment & Plan (09/22/2023 11:38 AM EST): Seen by Dr Demarcus Larry with c/o LE edema, referred to cardiology seen by Dr Cosme Manager Inpatient, Stress Test and ECHO unremarkable Assessment & Plan (01/18/2023 10:50 AM EDT): Seen by Dr Demarcus Larry with c/o LE edema, referred to cardiology seen by Dr Cosme 01/06/2023 ECHO ordered Preventative health care 01/18/2023 Assessment & Plan (12/04/2024 10:22 [...] 2:14 PM EST): Seeing Trinh Su at 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 Last [...] Plan: As per Endocrinology Eye exam with [facility] diagnosed with Dr. both eyes. Last seen 12/06/2023 Pt does not adhere to a diabetic diet, does not want to go any higher on her insulin dose as it was recommended by her Cabin Cleaning Supervisor. Pt advised to Adhere to diabetic diet [...] Plan: As per Endocrinology Eye exam with [facility] Engineer [facility] 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 Last seen 12/06/2023 Pt does not adhere to a diabetic diet, does not want to go any higher on her insulin dose as it was recommended by her Cabin Cleaning Supervisor. Pt advised to Adhere to diabetic diet [...] 81 mg po daily. Eye exam with [facility] Engineer [facility] diagnosed with DR both eyes 10/26/2016 Pt does not adhere to a diabetic diet, does not want to go any higher on her insulin dose as it was recommended by her Cabin Cleaning Supervisor. Pt advised to Adhere to diabetic diet [...] 81 mg po daily. Eye exam with [facility] Engineer [facility] diagnosed with DR both eyes 10/26/2016 Pt does not adhere to a diabetic diet, does not want to go any higher on her insulin dose as it was recommended by her Cabin Cleaning Supervisor. Pt advised to Adhere to diabetic diet [...] 81 mg po daily. Eye exam with [facility] Engineer [facility] diagnosed with DR both eyes 10/26/2016 Pt does not adhere to a diabetic diet, does not want to go any higher on her insulin dose as it was recommended by her Cabin Cleaning Supervisor. Pt advised to Adhere to diabetic diet [...] 81 mg po daily. Eye exam with [facility] Engineer [facility] diagnosed with DR both eyes 10/26/2016 Pt does not adhere to a diabetic diet, does not want to go any higher on her insulin dose as it was recommended by her Cabin Cleaning Supervisor. Pt advised to Adhere to diabetic diet [...] 81 mg po daily. Eye exam with [facility] Engineer [facility] diagnosed with DR both eyes 10/26/2016 Pt does not adhere to a diabetic diet, does not want to go any higher on her insulin dose as it was recommended by her Cabin Cleaning Supervisor. Pt advised to Adhere to diabetic diet [...] Encounters Date Type Department Care Team Description 12/24/2024 Orders Only GENERIC EXTERNAL DATA DEPARTMENT Provider, Generic External Data 12/20/2024 Results Follow-Up [facility] [place] [address] Ventura Tavares MD Vitamin D, 25-Hydroxy, Total, Immunoassay, POCT Glucose, POCT HGB A1C 12/17/2024 Refill [facility] [address] [place] [address] Ventura Tavares MD 12/04/2024 10:15 AM EDT Office Visit [facility] [place] [address] Ventura Tavares MD Type 2 diabetes mellitus with stage 3a chronic kidney disease, with long-term current use of insulin ([facility]) (Primary Dx); 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 ([facility]); Primary hypertension; Mixed hyperlipidemia; Hyperkalemia; Stage 3a chronic kidney disease (CMS/HCC); Severe obesity (CMS/HCC); Dietary counseling; Exercise counseling; Preventative health care; Encounter for screening mammogram for malignant neoplasm of breast; Breast cancer screening by mammogram 12/04/2024 Travel 12/03/2024 Telephone [facility] [place] [address] Ventura Tavares MD chartprep 11/21/2024 Refill [facility] [place] [address] Ventura Tavares MD Pain 11/20/2024 Refill [facility] [address] [facility] [place] [address] Ventura Tavares MD Pain 10/19/2024 Refill [facility] [address] [facility] [place] [address] Ventura Tavares MD 10/08/2024 Orders Only GENERIC [...] Care Team (Late st Contact Info) Description 03/19/2025 3:00 PM EDT Office Visit [facility] [address] [place] [address] Ventura Tavares MD [address] [place] [address] Health Maintenance Due Date Last Done Comments [...] topic Meningococcal Vaccine Aged Out No zunilda genvea eligible based on patient's age to complete this topic RSV under 20 months Aged Out No longe r eligible based on patient's age to complete this topic Rotavirus Vaccines Aged Out No longer eligible based on patient's age to complete this topic Procedures Procedure Name Priority Date/Time Associated Diagnosis Comments GLUCOSE, WHOLE BLOOD Routine 12/24/2024 1:11 PM EDT VITAMIN D,25-OH,TOTAL,IA Routine 12/18/2024 8:49 AM EDT Type 2 diabetes mellitus with stage 3a chronic kidney disease, with long-term current use of insulin ([facility]) POCT GLYCATED HEMOGLOBIN, TOTAL Routine 12/04/2024 10:30 AM EDT Type 2 diabetes mellitus with stage 3a chronic kidney disease, with long-term current use of insulin ([facility]) POCT GLUCOSE Routine 12/04/2024 10:27 AM EDT Type 2 diabetes mellitus with stage 3a chronic kidney disease, with long-term current use of insulin ([facility]) BASIC METABOLIC PANEL Routine 11/29/2024 8:20 AM EDT Primary hypertension LIPID PANEL, STANDARD Routine 11/29/2024 8:20 AM EDT Mixed hyperlipidemia GLUCOSE, WHOLE BLOOD Routine 10/08/2024 12:59 PM EDT BI MAMMOGRAM SCREENING TOMOSYNTHESIS BILATERAL Routine 10/24/2023 12:40 PM EDT HM COLONOSCOPY Routine 09/01/2015 from Last 3 Months or Most Recently Relevant to Health Maintenance Results * (ABNORMAL) Glucose, Whole Blood (12/24/2024 1:11 PM EDT) Only the most recent of2 resultswithin the time period is included. Glucose, Whole Blood 126(H) 60 - 115 mg/dL [facility] Comment:METER #: [id number] 5Testing performed in the Endocrinology Department [address] , [address], [place]. 12/24/2024 1:11 PM EDT 12/24/2024 1:15 PM EDT us Generic External Data Provider LAB BLOOD ORDERAB LES Final Result [facility] [address] [place] [address] [phone] * (ABNORMAL) Vitamin D, 25-Hydroxy, Total, Immunoassay (12/18/2024 8:49 AM EDT) Vitamin D 25-OH Total 26.0(L) >30 ng/mL [facility] Comment: Health Based Reference Values*< 20 ??ng/mL ??[id number] ng/mL ??Insufficient> 30 ??ng/mL ??Sufficient*Mt REIS. N Engl J Med. 2007;357:266-280There is no well-established upper level of normal vitamin Dlevels. Some laboratories use 50 ng/mL as an upper limit ofnormal. However, toxicity is patient-dependent and may occurat any level. Careful correlation with the patient'spresentation is necessary and, if there is concern forvitamin D toxicity, treatment should be consideredirrespective of the serum level.Care must be taken in interpreting Vitamin D results fromdifferent laboratories and methodologies. ??Published datademonstrated that results from patients undergoinghemodialysis may show a negative bias when tested withvarious automated 25-OH vitamin D assays when compared toLC- MS/MS.When testing samples from patients whose predominant form ofVitamin D is Vitamin D2, such as patients receiving VitaminD2 supplementation, results that are subtherapeutic shouldbe confirmed with another method such as LC-MS/MS. Blood Venous blood specimen / Unknown 12/18/2024 8:49 AM EDT 12/18/2024 11:04 AM EDT Ventura Maldonado MD LAB BLOOD ORDERABLES Final Result [facility] [address] [place] [phone] * (ABNORMAL) POCT HGB A1C (12/04/2024 10:30 [...] Media Lot # [id number] Lot# Expiration Date Blood Capillary blood specimen / Unknown 12/04/2024 10:27 AM EDT Ventura Maldonado MD POINT OF CARE TEST EN TER/EDIT ORDERABLES Final Result * Lipid Panel, Standard (11/29/2024 8:20 AM EDT) Triglycerides 56 <150 mg/dL [facility] Comment:Desirable Triglyceri de: less than 150 mg/dLBorderline High Triglyceride 150-199 mg/dLHigh Triglyceride: 200-499 mg/dLVery High Triglyceride: greater than or equal to 5OO mg/dL Cholesterol 131 <200 mg/dL [facility] Comment:Desirable Cholestero l: less than 200 mg/dLBorderline High Cholesterol: 200-239 mg/dLHigh Cholesterol: greater than 239 mg/dL LDL Cholesterol Calculated 54 <100 mg/dL [facility] Comment:Desirable LDL: less than 100 mg/dLNear Optimal/Above Optimal LDL: 110- 129 mg/dLBorderline High LDL: 130-159 mg/dLHigh LDL: 160-189 mg/dLVery High LDL: greater than or equal to 190 mg/dL HDL Cholesterol 66 >40 mg/dL [facility] Comment:Desirable HDL: great er than 40 mg/dL Note: This HDL assay may give artificially low results in patients with liver disease. Blood Venous blood specimen / Unknown 11/29/2024 8:20 AM EDT 11/29/2024 11:12 AM EDT Ventura Maldonado MD LAB BLOOD ORDERABLES Final Result [facility] [address] [place] [address] [phone] * (ABNORMAL) Basic Metabolic Panel (11/29/2024 8:20 AM EDT) Sodium 145 135 - 145 mmol/L [facility] Potassium 4.8 3.3 - 5.1 mmol/L [facility] Chloride 109(H) 96 - 108 mmol/L [facility] Carbon Dioxide 29 22 - 29 mmol/L [facility] Anion Gap 12 12 - 20 [facility] Urea Nitrogen (BUN) 38(H) 9 - 16 mg/dL [facility] Creatinine, Serum 1.48(H) 0.5 - 1.4 mg/dL [facility] Estimated Glomerular Filt Rate 35 [facility] Comment:Chronic Kidney Disea se: Estimated GFR < 60 mL/min/1.79r7Turakc Kidney Disease: Estimated GFR < 15 mL/min/1.73m2 Glucose 80 60 - 115 mg/dL [facility] Calcium 9.0 8.4 - 10.2 mg/dL [facility] Blood Venous blood specimen / Unknown 11/29/2024 8:20 AM EDT 11/29/2024 11:12 AM EDT us Ventura Schulz Joel MD LAB BLOOD ORDERABLES Final Result [facility] [address] [place] [phone] * BI Mammogram Screening Tomosynthesis Bilateral (10/24/2023 12:40 PM EDT) Anatomical Region Laterality Modality Breast Bilateral Mammography 10/24/2023 12:4 0 PM EDT Narrative 11/06/2023 3:28 PM EDT ? [facility] [place] ? [address] ?[place] [address] ? Mammography Report ? Signed ? Patient: Sindi Obrien ?MR#: M ?? [id number] ? : 1950 ?Acct:[id number] ? Age/Sex: 72 / F ?ADM Date: 10/24/23 ? Loc: HO.MAMMO ? Attending Dr: Ventura Shi MD ? Ordering Physician: Ventura Shi MD ?Resu ?? lts: 2Benign Findings ? Date of Service: 10/24/23 ?Follow Up: 1 Year From Orig ?? inal Mammogram ? Procedure(s): MM tomosynthesis screening BI ?? Accession Number(s): [id number] ? cc: Ventura Shi MD ? EXAMINATION: [...] 1525 ? DD/ 1240 ? TD/TT: ? Painter Sign Maintenance: ? Procedure Note Griselda, Image - 11/06/2023 [facility] [address] [place] [address] [place] [address] Mammography Report Signed Patient: Sindi Obrien#: M [id number] : 2Acct:[id number] Age/Sex: 72 / FADM Date: 10/24/23 Loc: SAJAN Attending Dr: Ventura Shi MD Ordering Physician: Ventura Shiu lts: 2Benign Findings Date of Service: 10/24/23Follow Up: 1 Year From Orig inal Mammogram Procedure(s): MM tomosynthesis screening BI Accession Number(s): [id number] cc: Ventura Shi MD EXAMINATION: MM SCREENING [...] in OV> 11/06/23 1525 DD/ 1240 TD/TT: Painter Sign Maintenance: Ventura Maldonado MD IMG BI PROCEDURES Ortiz cesar Result - Final * Hm Colonoscopy (09/01/2015) Colonoscopy Normal Normal 09/01/2015 Brittany Patel - 09/01/2015 11:54 AM EST Recommended 10 year follow up Historical Provider HEALTH MAINTENANCE Edited Result - Final from Last 3 Months or Most Recently Relevant to Health Maintenance Insurance [facility] [employer] (HMO D-SNP) [place], [place] [id number] Care Teams Award Machine Operator Relationship Specialty Start Date End Date Ventura Tavares MD [address] [place] [phone] PCP - General Internal Medicine 03/11/14 Garrison Silverio MD [address] [place] [address] Drive [address] [place] [address] Nephrology 11/29/24
== END 2024-12-24 13:40 | disposition home or self-care (01) ==
LOC: HO.ENCR 12:57
PROVIDERS: PCP Internal Medicine; Visit Provider Physician Assistant
DX: E11.21 Type 2 diabetes mellitus with diabetic nephropathy (principal); I10 Essential (primary) hypertension; E11.22 Type 2 diabetes mellitus with diabetic chronic kidney disease; N18.30 Chronic kidney disease, stage 3 unspecified; E66.01 Morbid (severe) obesity due to excess calories; Z68.41 Body mass index [BMI] 40.0-44.9, adult; Z13.9 Encounter for screening, unspecified; E11.65 Type 2 diabetes mellitus with hyperglycemia

== ENCOUNTER → 2024-12-24 12:56 | Outpatient (BNVA) | payer OTHER, SELFPAY | PROVIDERS: PCP Internal Medicine; Visit Provider Physician Assistant | DX: E11.22 Type 2 diabetes mellitus with diabetic chronic kidney disease (principal); E11.40 Type 2 diabetes mellitus with diabetic neuropathy, unspecified; E11.21 Type 2 diabetes mellitus with diabetic nephropathy; E11.65 Type 2 diabetes mellitus with hyperglycemia; G47.33 Obstructive sleep apnea (adult) (pediatric); I12.9 Hypertensive chronic kidney disease with stage 1 through stage 4 chronic kidney disease, or unspecified chronic kidney disease; N18.30 Chronic kidney disease, stage 3 unspecified; E66.01 Morbid (severe) obesity due to excess calories; Z79.4 Long term (current) use of insulin; Z68.41 Body mass index [BMI] 40.0-44.9, adult; Z86.73 Personal history of transient ischemic attack (TIA), and cerebral infarction without residual deficits | CPT/HCPCS: 82947; 83036; 99212 ==

== ENCOUNTER 2025-01-11 07:58 | Outpatient (REF) | payer OTHER, SELFPAY ==
--- OUTSIDE RECORDS SUMMARY | 2025-01-11 08:01 | XMS_ITS | Clinical Summary ---
Author Organization [employer] Address [address] [facility] 7[address] [place] [address] Care Team Providers Care Casino Porter Name Role Phone Ventura Tavares MD Primary [...] Continuous Glucose Sensor (FreeStyle Blake 3 Sensor) mis USE DIRECTED TO CHECK BLOOD SUGAR CHANGE [...] DAY 180 tablet 3 024 2024 Discontinued Active Problems Problem Noted [...] appears bluish ,regular borders -referred today to service dispatcher Routine physical examination 04/19/2023 Assessment & [...] Larry spoke with Dr. Cosme's office (her king maker), pt was seen 12/27/2023. We notified the office that her continuity tester Dr. Silverio prescribes Lasix 20 mg 2 tabs po daily. Patient followed by Dr Cosme Contract Assistant, Previous Stress Test and ECHO unremarkable. Last seen 07/03/2024. Assessment & Plan (05/15/2024 1:05 PM EDT): Seen initially by Dr Demarcus Larry with c/o LE edema and elevated BNP, CXR was unermarkable. Dr. Larry spoke with Dr. Cosme's office (her king maker), pt was seen 12/27/2023. We notified the office that her continuity tester Dr. Silverio prescribes Lasix 20 mg 2 tabs po daily. Patient followed by Dr Cosme Contract Assistant, Previous Stress Test and ECHO unremarkable. Last seen 12/27/2023. Assessment & Plan (09/22/2023 11:38 AM EST): Seen by Dr Demarcus Larry with c/o LE edema, referred to cardiology seen by Dr Cosme Contract Assistant, Stress Test and ECHO unremarkable Assessment & [...] 2:14 PM EST): Seeing Trinh Su at [facility] 04/06/2012 Assessment & Plan (12/04/2024 10:06 AM [...] Plan: As per Endocrinology Eye exam with Bailer Tenders Supervisor [facility] diagnosed with DR both [...] Plan: As per Endocrinology Eye exam with Bailer Tenders Supervisor [facility] diagnosed with Dr. both eyes. Last seen 12/06/2023 Pt does not adhere to a diabetic diet, does not want to go any higher on her insulin dose as it was recommended by her Ropeman. Pt advised to Adhere to diabetic diet [...] Plan: As per Endocrinology 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 Last seen 12/06/2023 Pt does not adhere to a diabetic diet, does not want to go any higher on her insulin dose as it was recommended by her Ropeman. Pt advised to Adhere to diabetic diet [...] 81 mg po daily. Eye exam with Bailer Tenders Supervisor [facility] diagnosed with DR both eyes 10/26/2016 Pt does not adhere to a diabetic diet, does not want to go any higher on her insulin dose as it was recommended by her Ropeman. Pt advised to Adhere to diabetic diet [...] 81 mg po daily. Eye exam with Bailer Tenders Supervisor [facility] diagnosed with DR both eyes 10/26/2016 Pt does not adhere to a diabetic diet, does not want to go any higher on her insulin dose as it was recommended by her Ropeman. Pt advised to Adhere to diabetic diet [...] 81 mg po daily. Eye exam with Bailer Tenders Supervisor [facility] diagnosed with DR both eyes 10/26/2016 Pt does not adhere to a diabetic diet, does not want to go any higher on her insulin dose as it was recommended by her Ropeman. Pt advised to Adhere to diabetic diet [...] 81 mg po daily. Eye exam with Bailer Tenders Supervisor [facility] diagnosed with DR both eyes 10/26/2016 Pt does not adhere to a diabetic diet, does not want to go any higher on her insulin dose as it was recommended by her Ropeman. Pt advised to Adhere to diabetic diet [...] 81 mg po daily. Eye exam with Bailer Tenders Supervisor [facility] diagnosed with DR both eyes 10/26/2016 Pt does not adhere to a diabetic diet, does not want to go any higher on her insulin dose as it was recommended by her Ropeman. Pt advised to Adhere to diabetic diet [...] Provider, Generic External Data 12/20/2024 Results Follow-Up [facility] [address] [facility] [place] [address] Ventura Tavares MD Vitamin D, 25-Hydroxy, Total, Immunoassay, POCT Glucose, POCT HGB A1C 12/17/2024 Refill [facility] [address] [place] [address] Ventura Tavares MD 12/04/2024 10:15 AM EDT Office Visit [facility] [address] [place] [address] Ventura Tavares MD Type 2 diabetes mellitus with stage 3a chronic kidney disease, with long-term current use of insulin ([facility]) (Primary Dx); 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 (CMS/HCC); Primary hypertension; Mixed hyperlipidemia; Hyperkalemia; Stage 3a chronic kidney disease (CMS/HCC); Severe obesity (CMS/HCC); Dietary counseling; Exercise counseling; Preventative health care; Encounter for screening mammogram for malignant neoplasm of breast; Breast cancer screening by mammogram 12/04/2024 Travel 12/03/2024 Telephone [facility] [address] [facility] [place] [address] Ventura Tavares MD chartprep 11/21/2024 Refill [facility] [address] [facility] [place] [address] Ventura Tavares MD Pain 11/20/2024 Refill [facility] [address] [facility] [place] [phone] Ventura Tavares MD Pain 10/19/2024 Refill [facility] [address] [facility] [place] [address] Ventura Tavares MD from Last 3 Months Immunizations Immunization Administration [...] 72 12/04/2024 10:00 AM EDT Temperature 36.2 C (97.1 F) 12/04/2024 10:00 AM EDT Respiratory Rate 20 12/04/2024 10:00 AM EDT [...] Description 03/19/2025 3:00 PM EDT Office Visit [facility] [address] [place] [address] Ventura Tavares MD [address] [place] [address] Health Maintenance Due Date Last Done Comments [...] disease, with long-term current use of insulin ([facility]) POCT GLYCATED HEMOGLOBIN, TOTAL Routine 12/04/2024 10:30 AM EDT Type 2 diabetes mellitus with stage 3a chronic kidney disease, with long-term current use of insulin ([facility]) POCT GLUCOSE Routine 12/04/2024 10:27 AM EDT Type 2 diabetes mellitus with stage 3a chronic kidney disease, with long-term current use of insulin ([facility]) BASIC METABOLIC PANEL Routine 11/29/2024 8:20 AM EDT Primary hypertension LIPID PANEL, STANDARD Routine 11/29/2024 8:20 AM EDT Mixed hyperlipidemia BI MAMMOGRAM SCREENING TOMOSYNTHESIS BILATERAL Routine 10/24/2023 12:40 PM EDT HM COLONOSCOPY Routine 09/01/2015 from Last 3 Months or Most Recently Relevant to Health Maintenance Results * (ABNORMAL) Glucose, Whole Blood (12/24/2024 1:11 PM EDT) Glucose, Whole Blood 126(H) 60 - 115 mg/dL [facility] Comment:METER #: [id number] 5Testing performed in the Endocrinology Department [address] , [address], [place]. 12/24/2024 1:11 PM EDT 12/24/2024 1:15 PM EDT us Generic External Data Provider LAB BLOOD ORDERAB LES Final Result [facility] [address] [place] [address] [phone] * (ABNORMAL) Vitamin D, 25-Hydroxy, Total, Immunoassay (12/18/2024 8:49 AM EDT) Vitamin D 25-OH Total 26.0(L) >30 ng/mL [facility] Comment: Health Based Reference Values*< 20 ng/mL [id number] ng/mL Insufficient> 30 ng/mL Sufficient*Mt REIS. N Engl J Med. 2007;357:266-280There is [...] Vitamin D results fromdifferent laboratories and methodologies. Published datademonstrated that results from patients undergoinghemodialysis may show a negative bias when tested withvarious automated 25-OH vitamin D assays when compared toLC-MS/MS.When testing samples from patients whose predominant form ofVitamin D is Vitamin D2, such as patients receiving VitaminD2 supplementation, results that are subtherapeutic shouldbe confirmed with another method such as LC-MS/MS. Blood Venous blood specimen / Unknown 12/18/2024 8:49 AM EDT 12/18/2024 11:04 AM EDT us Ventura Maldonado MD LAB BLOOD ORDERABLES Final Result Performing Organization Address City/[facility]/ZIP Co de Phone Number [facility] [address] [place] [phone] [phone] * (ABNORMAL) POCT HGB A1C (12/04/2024 [...] 8:20 AM EDT) Triglycerides 56 <150 mg/dL [facility] Comment:Desirable Triglyceri de: less than 150 mg/dLBorderline High Triglyceride 150-199 mg/dLHigh Triglyceride: 200-499 mg/dLVery High Triglyceride: greater than or equal to 5OO mg/dL Cholesterol 131 <200 mg/dL [facility] Comment:Desirable Cholestero l: less than 200 mg/dLBorderline High Cholesterol: 200-239 mg/dLHigh Cholesterol: greater than 239 mg/dL LDL Cholesterol Calculated 54 <100 mg/dL [facility] Comment:Desirable LDL: less than 100 mg/dLNear Optimal/Above Optimal LDL: 110- 129 mg/dLBorderline High LDL: 130-159 mg/dLHigh LDL: 160-189 mg/dLVery High LDL: greater than or equal to 190 mg/dL HDL Cholesterol 66 >40 mg/dL [facility] Comment:Desirable HDL: great er than 40 mg/dL Note: This HDL assay may give artificially low results in patients with liver disease. Blood Venous blood specimen / Unknown 11/29/2024 8:20 AM EDT 11/29/2024 11:12 AM EDT Ventura Maldonado MD LAB BLOOD ORDERABLES Final Result Performing Organization Address City/[facility]/ZIP Co de Phone Number [facility] [address] [place] [address] [phone] * (ABNORMAL) Basic Metabolic Panel (11/29/2024 8:20 AM EDT) Sodium 145 135 - 145 mmol/L [facility] Potassium 4.8 3.3 - 5.1 mmol/L [facility] Chloride 109(H) 96 - 108 mmol/L [facility] Carbon Dioxide 29 22 - 29 mmol/L [facility] Anion Gap 12 12 - 20 [facility] Urea Nitrogen (BUN) 38(H) 9 - 16 mg/dL [facility] Creatinine, Serum 1.48(H) 0.5 - 1.4 mg/dL [facility] Estimated Glomerular Filt Rate 35 [facility] Comment:Chronic Kidney Disea se: Estimated GFR < 60 mL/min/1.99k4Bhopni Kidney Disease: Estimated GFR < 15 mL/min/1.73m2 Glucose 80 60 - 115 mg/dL [facility] Calcium 9.0 8.4 - 10.2 mg/dL [facility] Blood Venous blood specimen / Unknown 11/29/2024 8:20 AM EDT 11/29/2024 11:12 AM EDT Ventura Maldonado MD LAB BLOOD ORDERABLES Final Result [facility] [address] [place] [address] [phone] * BI Mammogram Screening Tomosynthesis Bilateral (10/24/2023 12:40 PM EDT) Anatomical Region Laterality Modality Breast Bilateral Mammography 10/24/2023 12:4 0 PM EDT Narrative 11/06/2023 3:28 PM EDT [address] [place], [place] [address] Mammography Report Signed Patient: Sindi Obrien MR#: [id number] : 1950 Acct:[id number] Age/Sex: 72 / F ADM Date: 10/24/23 Loc: HO.MAMMO Attending Dr: Ventura Shi MD Ordering Physician: Ventura Shi MD Resu lts: 2Benign Findings Date of Service: 10/24/23 Follow Up: 1 Year From Orig inal Mammogram Procedure(s): MM tomosynthesis screening BI Accession Number(s): [id number] cc: Ventura Shi MD EXAMINATION: MM SCREENING [...] by Hyacinth Moeller MD in OV> 11/06/23 1528 DD/ 1240 TD/TT: Senior Water Resources Engineer: Procedure Note Donotuseinterpreter, Image - 11/06/[address] [facility] [address] [place], [place] [address] Mammography Report Signed Patient: Sindi ObrienMR#: [id number] : 2Acct:[id number] Age/Sex: 72 / FADM Date: 10/24/23 Loc: HO.MAMMO Attending Dr: Ventura Shi MD Ordering Physician: Ventura Shi MDResu lts: 2Benign Findings Date of Service: 10/24/23Follow Up: 1 Year From Orig ina Mammogram Procedure(s): MM tomosynthesis screening BI Accession Number(s): [id number] cc: Ventura Shi MD EXAMINATION: MM SCREENING [...] in OV> 11/06/23 1525 DD/ 1240 TD/TT: Senior Water Resources Engineer: us Ventura Maldonado MD IMG BI PROCEDURES Ortiz cesar Result - Final * Hm Colonoscopy (09/01/2015) Colonoscopy Normal Normal 09/01/2015 Brittany Patel - 09/01/2015 11:54 AM EST Recommended 10 year follow up us Historical Provider HEALTH MAINTENANCE Edited Result - Final from Last 3 Months or Most Recently Relevant to Health Maintenance Insurance [facility] [employer] (HMO D-SNP) [place] [id number] Care Teams Casino Porter Relationship Specialty Start Date End Date Ventura Tavares MD [address] [place] [address] PCP - General Internal Medicine 03/11/14 Garrison Silverio MD [address] [place] [address] Nephrology 11/29/24
[2025-01-11 10:39] LABS: Alanine Aminotransferase 18 U/L (0-31); Albumin Level 3.9 g/dL (3.5-5.0); Alkaline Phosphatase 105 U/L (39-117); Anion Gap 11 (12-20); Aspartate Amino Transferase 25 U/L (5-31); Bilirubin Total 0.3 mg/dL (0.0-1.0); Blood Urea Nitrogen 32 mg/dL (9-16); Calcium 9.2 mg/dL (8.4-10.2); Carbon Dioxide 29 mmol/L (22-29); Chloride 107 mmol/L (96-108); Cholesterol 138 mg/dL (<200); Estimated Glomerular Filt Rate 33; Glucose Fasting 103 mg/dL (60-99); HDL Cholesterol 60 mg/dL (>40); LDL Cholesterol Calculated 59 mg/dL (<100); Potassium 4.6 mmol/L (3.3-5.1); Sodium 142 mmol/L (135-145); Total Protein 6.9 g/dL (6.5-8.0); Triglycerides 96 mg/dL (<150)
[2025-01-11 10:55] LABS: Estimated Average Glucose 177 mg/dL; Hemoglobin A1C 335.0098 umol/L; Hemoglobin A1c % 7.8 % (<6.0); Total Hemoglobin (HGBA1C) 5471.5218 umol/L
== END 2025-01-11 07:59 | disposition home or self-care (01) ==
LOC: HO.10HDL 07:58
PROVIDERS: Visit Provider Physician Assistant
DX: I12.9 Hypertensive chronic kidney disease with stage 1 through stage 4 chronic kidney disease, or unspecified chronic kidney disease (principal); E11.22 Type 2 diabetes mellitus with diabetic chronic kidney disease; E11.65 Type 2 diabetes mellitus with hyperglycemia; E11.21 Type 2 diabetes mellitus with diabetic nephropathy; N18.30 Chronic kidney disease, stage 3 unspecified
CPT/HCPCS: 36415; 80053; 80061; 83036

== ENCOUNTER 2025-02-13 10:40 | Outpatient (AMB) | payer OTHER, SELFPAY ==
--- NOTE | 2025-02-13 11:07 | HO.NEPHOV ---
Vital Signs 02/13/25 11:08 Height 4 ft 5 in Weight 158 lb 2 oz BMI 39.6 BP 140/60 H Blood Pressure Location Rt brachial Position Sitting Pulse 75 Pulse Source Pulse Oximeter Pulse Oximetry (%) 96 Oxygen Delivery Method Room Air Intake Visit Reasons: 2 MO FU-Conf w/daughter-Conf Pre K Special Education Teacher Required: Yes Pre K Special Education Teacher Language: Human Resources Office Manager Services: Pre K Special Education Teacher Offered & Declined ([facility] [place] Pre K Special Education Teacher services refused) Information Interpreted: clinical only Accompanied by: Self / Same As Patient Allergies metformin (From GLUCOPHAGE) Adverse Reaction (Unknown, Verified 02/13/25 11:08) DIARRHEA HPI Comments Details: Sindi was seen in follow-up of her chronic kidney disease due to biopsy-proven diabetic nephropathy. Her blood sugar control has been better with weight loss on Trulicity.. She has history of cerebrovascular accident. She has hypertension. She had no deficits from CVA. Blood pressure is better controlled. She has not good with her diet and weight loss. She denies using any nonsteroidal anti-inflammatories but consumes normal sodium and has a normal diet. she was on angiotensin receptor claude in the past which she did not tolerate very well. She denies chest pain, shortness of breath, paroxysmal nocturnal dyspnea, orthopnea, pedal edema, urinary symptoms or orthostasis. She tries to maintain herself with good hydration. She has been having facial swelling and pedal edema which resolved with diuresis. She is not very compliant with low sodium diet. She has been on losartan which has been put on hold since she has been having hyperkalemia. She has been on Kayexalate once a week. Sh e has been having vaginal bleeding/spotting [facility] Medical History Snoring Dyspnea on exertion PB (obstructive sleep apnea) Hypoxemia Breast calcification, right Obesity due to excess calories Peripheral nerve facial nerve paralysis History of CVA (cerebrovascular accident) GERD (gastroesophageal reflux disease) Asthma Morbid obesity Hypertension CKD stage 3 due to type 2 diabetes mellitus shelter (current) use of insulin Diabetic nephropathy associated with type 2 diabetes mellitus Dyslipidemia Diabetes type 2, uncontrolled Surgical History Hx of tubal ligation Hx of bilateral cataract extraction Hx of hysterectomy History of appendectomy Family History Father Cancer Mother Diabetes mellitus Social History Household Members: None Housing: Apartment Do you presently have visiting nurse or other home services: Yes Alcohol intake: never Patient Tobacco Use Status: Never used Tobacco Second Hand Smoke Exposure: No Advance Directives Date on File: 11/26/20 service: No Current occupational status: disabled Current occupation: rt handed Female Reproductive History Menstrual Age of Menarche: 12 Review of Systems Const All systems reviewed & are unremarkable except as noted in HPI and below Physical Exam Vital Signs: Last Vital Signs Pulse 75 02/13/25 11:08 BP 140/60 H 02/13/25 11:08 Pulse Ox 96 02/13/25 11:08 Oxygen Delivery Method Room Air 02/13/25 11:08 BMI result Body Mass Index 39.6 Const General: comfortable and no acute distress Orientation/consciousness: patient oriented x3 HEENT Head: Yes normocephalic Mouth: Normal oral and palatal mucosa present Eyes EOM: EOMs intact bilaterally Neck Neck: Yes supple Resp Auscultation: clear to auscultation bilaterally Cardio Jugular venous distension: no JVD Rate: regular rate GI Palpation (GI): Soft to palpation Auscultation: normal bowel sounds General: Yes no CVA tenderness Back/Spine/Pelvis Back: no CVA tenderness Skin General skin exam: no rashes or lesions noted Neuro General: patient oriented x3 and moves all extremities Extrem General: Yes no pedal edema Results Reviewed Nephrology Results: Sodium, (135-145) 142 mmol/L 01/11/25 Potassium, (3.3-5.1) 4.6 mmol/L 01/11/25 Chloride, (96-108) 107 mmol/L 01/11/25 Carbon Dioxide, (22-29) 29 mmol/L 01/11/25 BUN, (9-16) 32 mg/dL H 01/11/25 Creatinine, (0.5-1.4) 1.53 mg/dL H 01/11/25 Calcium, (8.4-10.2) 9.2 mg/dL 01/11/25 Assessment & Plan Assessment & Plan (1) Hypertension: Code(s): I10 - Essential (primary) hypertension Category: Medical Qualifiers: Hypertension type: primary hypertension Qualified Code(s): I10 - Essential (primary) hypertension (2) Diabetic nephropathy associated with type 2 diabetes mellitus: Code(s): E11.21 - Type 2 diabetes mellitus with diabetic nephropathy Category: Medical (3) CKD stage 3 due to type 2 diabetes mellitus: Code(s): E11.22 - Type 2 diabetes mellitus with diabetic chronic kidney disease; N18.30 - Chronic kidney disease, stage 3 unspecified Category: Medical Plan Sindi has 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 Her renal biopsy in the past showed significant disease from diabetes and hypertension. She had been off angiotensin receptor claude now, since she had hyperkalemia. I plan to restart it later. She should be on a low-potassium diet. She should continue Jardiance 25 mg daily . She needs to increase hydration. She should maintain a tighter blood sugar control. She should cut back sodium in the diet and lose weight. She should maintain good hydration and avoid nonsteroidal anti-inflammatories. She should continue Kayexalate 30 Gram twice a week for now. I have ordered follow up blood work. She should see a Gynaecologist soon. Follow up appointment given Orders: Orders Calcium 2 Months E11.21 - Type 2 diabetes mellitus with diabetic nephropathy, E11.22 - Type 2 diabetes mellitus with diabetic chronic kidney disease, I10 - Essential (primary) hypertension, N18.30 - Chronic kidney disease, stage 3 unspecified Electrolytes 2 Months E11.21 - Type 2 diabetes mellitus with diabetic nephropathy, E11.22 - Type 2 diabetes mellitus with diabetic chronic kidney disease, I10 - Essential (primary) hypertension, N18.30 - Chronic kidney disease, stage 3 unspecified Blood Urea Nitrogen 2 Months E11.21 - Type 2 diabetes mellitus with diabetic nephropathy, E11.22 - Type 2 diabetes mellitus with diabetic chronic kidney disease, I10 - Essential (primary) hypertension, N18.30 - Chronic kidney disease, stage 3 unspecified Creatinine 2 Months E11.21 - Type 2 diabetes mellitus with diabetic nephropathy, E11.22 - Type 2 diabetes mellitus with diabetic chronic kidney disease, I10 - Essential (primary) hypertension, N18.30 - Chronic kidney disease, stage 3 unspecified Coding Level of Care Code Est Pt Level 4 (71426) Diagnoses Primary hypertension I10 Hypertension type: primary hypertension Diabetic nephropathy associated with type 2 diabetes mellitus E11.21 CKD stage 3 due to type 2 diabetes mellitus E11.22; N18.30
[2025-02-13 11:08] VITALS: BP 140/60; PULSE 75; O2SAT 96; BMI 39.6
--- OUTSIDE RECORDS SUMMARY | 2025-02-13 11:41 | XMS_ITS | Clinical Summary ---
Author Organization [facility] Address [address] [place] [address] [address] [place] [phone] Phone Care Team Providers Care Hospital Nursing Assistant Name Role Phone Ventura Schulz MD Primary [...] & Plan: Improving Pt seen at our [facility] by Dr Demarcus Larry, [place] [...] A1C 09/21/2024 024, 05/15/2024, 12/21/2022 Influenza Vaccine (#1) 2025 4, 08/16/2023, 08/11/2021, Additional history exists Pneumococcal Vaccine: 50+ Years Completed 05/29/2024, 02/13/2021, 03/07/2000 Pneumococcal Vaccine: Peds (0 to 5 Years) and At-Risk Patients (6 to 49 Years) Discontinued 05/29/2024, 02/13/2021, 03/07/2000 Hepatitis B Vaccine Aged Out No longe r eligible based on patient's age to complete this topic [place] [address] ([id number]) [place] [id number] [place] [address] [facility] ([id number]) [place] [id number] Care Teams Hospital Nursing Assistant Relationship Specialty Start Date End Date Ventura Schulz MD [address] [place] [address] PCP - General 08/04/20
--- OUTSIDE RECORDS SUMMARY | 2025-02-13 11:41 | XMS_ITS | Clinical Summary ---
Author Organization [employer] Address [address] [facility] [address] [place] [address] Care Team Providers Care Pit Slagman Name Role Phone Ventura Tavares MD Primary [...] pain or fever. 40 tablet 024 Active aspirin (Aspirin Low Dose) 81 [...] PATCH WITHIN 12 HOURS OR INSTRUCTED BY MD. 30 patch 2 024 Active furosemide (Lasix) 20 MG tablet Take 2 tablets (40 mg) by mouth Once per day. 60 tablet 024 Active Additional Information Patient taking differently: (No [...] EVERY DAY 90 tablet 3 024 Active Jardiance 10 MG Take 1 tablet by mouth Once per day. 024 Active Continuous Glucose Sensor (FreeStyle Blake 3 Sensor) misc USE DIRECTED TO CHECK BLOOD SUGAR CHANGE EVERY 14 DAYS 1 each 3 025 Active gabapentin (Neurontin) 300 MG capsuleIndication s:Pain TAKE 1 CAPSULE BY MOUTH AT BEDTIME 90 capsule 025 Active hydrALAZINE (Apresoline) 25 MG tablet TAKE 1 TABLET BY MOUTH TWICE DAILY IN THE MORNING AND AT BEDTIME 180 tablet 1 025 Active cholecalciferol (Vitamin D-3) 25 MCG (1000 UT) tabletIndications :Low vitamin D level Take 1 tablet (25 mcg) by mouth Once per day. 30 tablet 6 025 Active metoprolol tartrate (Lopressor) 25 MG tabletIndications :Primary hypertension TAKE 1 TABLET BY MOUTH TWICE DAILY IN THE MORNING AND AT BEDTIME 180 tablet 2 025 Active metoprolol tartrate (Lopressor) 25 MG tabletIndications [...] appears bluish ,regular borders -referred today to veneer supervisor Routine physical examination 04/19/2023 Assessment & Plan [...] Larry spoke with Dr. Cosme's office (her compressor engineer), pt was seen 12/27/2023. We notified the office that her unit manager convenience stores Dr. Silverio prescribes Lasix 20 mg 2 tabs po daily. Patient followed by Dr Cosme Combat Control, Previous Stress Test and ECHO unremarkable. Last seen 07/03/2024. Assessment & Plan (05/15/2024 1:05 PM EDT): Seen initially by Dr Demarcus Larry with c/o LE edema and elevated BNP, CXR was unermarkable. Dr. Larry spoke with Dr. Cosme's office (her compressor engineer), pt was seen 12/27/2023. We notified the office that her unit manager convenience stores Dr. Silverio prescribes Lasix 20 mg 2 tabs po daily. Patient followed by Dr Cosme Combat Control, Previous Stress Test and ECHO unremarkable. Last seen 12/27/2023. Assessment & Plan (09/22/2023 11:38 AM EST): Seen by Dr Demarcus Larry with c/o LE edema, referred to cardiology seen by Dr Cosme Combat Control, Stress Test and ECHO unremarkable Assessment & [...] 2:14 PM EST): Seeing Trinh Su at [facility] 04/06/2012 Assessment & Plan (12/04/2024 10:06 AM [...] Plan: As per Endocrinology Eye exam with Produce Team Lead [facility] 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 [...] Plan: As per Endocrinology Eye exam with Produce Team Lead [facility] diagnosed with Dr. both eyes. Last seen 12/06/2023 Pt does not adhere to a diabetic diet, does not want to go any higher on her insulin dose as it was recommended by her Workforce Staffing Advisor. Pt advised to Adhere to diabetic diet [...] Plan: As per Endocrinology Eye exam with Produce Team Lead [facility] 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 Last seen 12/06/2023 Pt does not adhere to a diabetic diet, does not want to go any higher on her insulin dose as it was recommended by her Workforce Staffing Advisor. Pt advised to Adhere to diabetic diet [...] 81 mg po daily. Eye exam with Produce Team Lead [facility] diagnosed with DR both eyes 10/26/2016 Pt does not adhere to a diabetic diet, does not want to go any higher on her insulin dose as it was recommended by her Workforce Staffing Advisor. Pt advised to Adhere to diabetic diet [...] 81 mg po daily. Eye exam with Produce Team Lead [facility] diagnosed with DR both eyes 10/26/2016 Pt does not adhere to a diabetic diet, does not want to go any higher on her insulin dose as it was recommended by her Workforce Staffing Advisor. Pt advised to Adhere to diabetic diet [...] 81 mg po daily. Eye exam with Produce Team Lead [facility] diagnosed with DR both eyes 10/26/2016 Pt does not adhere to a diabetic diet, does not want to go any higher on her insulin dose as it was recommended by her Workforce Staffing Advisor. Pt advised to Adhere to diabetic diet [...] 81 mg po daily. Eye exam with Produce Team Lead [facility] diagnosed with DR both eyes 10/26/2016 Pt does not adhere to a diabetic diet, does not want to go any higher on her insulin dose as it was recommended by her Workforce Staffing Advisor. Pt advised to Adhere to diabetic diet [...] 81 mg po daily. Eye exam with Produce Team Lead [facility] diagnosed with DR both eyes 10/26/2016 Pt does not adhere to a diabetic diet, does not want to go any higher on her insulin dose as it was recommended by her Workforce Staffing Advisor. Pt advised to Adhere to diabetic diet [...] Encounters Date Type Department Care Team Description 02/11/2025 Refill [facility] [address] [place] [address] Ventura Tavares MD Primary hypertension 12/24/2024 Orders Only GENERIC EXTERNAL DATA DEPARTMENT Provider, Generic External Data 12/20/2024 Results Follow-Up [facility] [address] [facility] [place] [address] Ventura Tavares MD Vitamin D, 25-Hydroxy, Total, Immunoassay, POCT Glucose, POCT HGB A1C 12/17/2024 Refill [facility] [address] [facility] [place] [address] Ventura Tavares MD 12/04/2024 10:15 AM EDT Office Visit [facility] [place] [address] Ventura Tavares MD Type 2 diabetes mellitus with stage 3a chronic kidney disease, with long-term current use of insulin (CMS/HCC) (Primary Dx); 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 (CMS/HCC); Primary hypertension; Mixed hyperlipidemia; Hyperkalemia; Stage 3a chronic kidney disease (CMS/HCC); Severe obesity (CMS/HCC); Dietary counseling; Exercise counseling; Preventative health care; Encounter for screening mammogram for malignant neoplasm of breast; Breast cancer screening by mammogram 12/04/2024 Travel 12/03/2024 Telephone [facility] [place] [address] Ventura Tavares MD chartprep 11/21/2024 Refill [facility] [place], [place] [phone] Ventura Tavares MD Pain 11/20/2024 Refill [facility] [address] [place] [address] Ventura Tavares MD Pain from Last 3 Months Immunizations Immunization Administration [...] Description 03/19/2025 3:00 PM EDT Office Visit [facility] [address] [place] [address] Ventura Tavares MD [address] [place] [address] Health Maintenance Due Date Last Done Comments [...] 03/06/2025 025, 09/04/2024, 06/22/2024, Additional history exists Influenza Vaccine (#1) 2025 , 08/16/2023, 04/26/2023, Additional history exists Alcohol/Substance Use Screening 05/15/2025 05/15/2024 Depression Screening 05/15/2025 05/15/2024, 05/15/20 24 SDOH Screening 05/15/2025 05/15/2024 Colonoscopy 09/01/2025 09/01/2015 Colorectal Cancer Screening 09/01/2025 Lipid Panel 11/29/2025 11/29/2024, 03/0 02/2024, 12/31/2022, Additional history exists Tobacco Screening 12/04/2025 12/04/2024 DTaP/Tdap/Td Vaccines (2 - Td or Tdap) 02/13/2031 02/13/2021, 10/15/2010 Pneumococcal Vaccine: 50+ Years Completed 05/29/2024, 02/13/2021, [...] disease, with long-term current use of insulin ([facility]) POCT GLYCATED HEMOGLOBIN, TOTAL Routine 12/04/2024 10:30 AM EDT Type 2 diabetes mellitus with stage 3a chronic kidney disease, with long-term current use of insulin ([facility]) POCT GLUCOSE Routine 12/04/2024 10:27 AM EDT Type 2 diabetes mellitus with stage 3a chronic kidney disease, with long-term current use of insulin ([facility]) BASIC METABOLIC PANEL Routine 11/29/2024 8:20 AM EDT Primary hypertension LIPID PANEL, STANDARD Routine 11/29/2024 8:20 AM EDT Mixed hyperlipidemia BI MAMMOGRAM SCREENING TOMOSYNTHESIS BILATERAL Routine 10/24/2023 12:40 PM EDT HM COLONOSCOPY Routine 09/01/2015 from Last 3 Months or Most Recently Relevant to Health Maintenance Results * (ABNORMAL) Glucose, Whole Blood (12/24/2024 1:11 PM EDT) Glucose, Whole Blood 126(H) 60 - 115 mg/dL [facility] Comment:METER #: [id number] 5Testing performed in the Endocrinology Department [address] , [address], [facility]. 12/24/2024 1:11 PM EDT 12/24/2024 1:15 PM EDT us Generic External Data Provider LAB BLOOD ORDERAB LES Final Result [facility] [address] [place] [phone] * (ABNORMAL) Vitamin D, 25-Hydroxy, Total, Immunoassay (12/18/2024 8:49 AM EDT) Vitamin D 25-OH Total 26.0(L) >30 ng/mL [facility] Comment: Health Based Reference Values*< 20 ng/mL Gtyqopnco53-31 ng/mL Insufficient> 30 ng/mL Sufficient*Mt REIS. N [...] BLOOD ORDERABLES Final Result Performing Organization Address [facility]/ZIP Co de Phone Number [facility] [address] [place] [address] [phone] * (ABNORMAL) POCT HGB A1C (12/04/2024 [...] to 5OO mg/dL Cholesterol 131 <200 mg/dL [facility] Comment:Desirable Cholestero l: less than 200 mg/dLBorderline High Cholesterol: 200-239 mg/dLHigh Cholesterol: greater than 239 mg/dL LDL Cholesterol Calculated 54 <100 mg/dL [facility] Comment:Desirable LDL: less than 100 mg/dLNear Optimal/Above Optimal LDL: 110- 129 mg/dLBorderline High LDL: 130-159 mg/dLHigh LDL: 160-189 mg/dLVery High LDL: greater than or equal to 190 mg/dL HDL Cholesterol 66 >40 mg/dL [facility] Comment:Desirable HDL: great er than 40 mg/dL Note: This HDL assay may give artificially low results in patients with liver disease. Blood Venous blood specimen / Unknown 11/29/2024 8:20 AM EDT 11/29/2024 11:12 AM EDT Ventura Maldonado MD LAB BLOOD ORDERABLES Final Result Performing Organization Address [facility]/ZIP Co de Phone Number [facility] [address] [place] [phone] * (ABNORMAL) Basic Metabolic Panel (11/29/2024 8:20 AM EDT) Sodium 145 135 - 145 mmol/L [facility] Potassium 4.8 3.3 - 5.1 mmol/L [facility] Chloride 109(H) 96 - 108 mmol/L [facility] Carbon Dioxide 29 22 - 29 mmol/L [facility] Anion Gap 12 12 - 20 [facility] Urea Nitrogen (BUN) 38(H) 9 - 16 mg/dL [facility] Creatinine, Serum 1.48(H) 0.5 - 1.4 mg/dL [facility] Estimated Glomerular Filt Rate 35 [facility] Comment:Chronic Kidney Disea se: Estimated GFR < 60 mL/min/1.14d9Sexpas Kidney Disease: Estimated GFR < 15 mL/min/1.73m2 Glucose 80 60 - 115 mg/dL [facility] Calcium 9.0 8.4 - 10.2 mg/dL [facility] Blood Venous blood specimen / Unknown 11/29/2024 8:20 AM EDT 11/29/2024 11:12 AM EDT Ventura Maldonado MD LAB BLOOD ORDERABLES Final Result Performing Organization Address City/[facility]/ZIP Co de Phone Number [facility] [address] [place] [phone] * BI Mammogram Screening Tomosynthesis Bilateral (10/24/2023 12:40 PM EDT) Anatomical Region Laterality Modality Breast Bilateral Mammography 10/24/2023 12:4 0 PM EDT Narrative 11/06/2023 3:28 PM EDT [facility] [address] [place], [place] [address] Mammography Report Signed Patient: Sindi Obrien MR#: [id number] : 1950 Acct:[id number] Age/Sex: 72 / F ADM Date: 10/24/23 Loc: HO.MAMMO Attending Dr: Ventura Shi MD Ordering Physician: Ventura Shi MD Resu lts: 2Benign Findings Date of Service: 10/24/23 Follow Up: 1 Year From Orig inal Mammogram Procedure(s): MM tomosynthesis screening BI Accession Number(s): [id number] cc: Ventura Shi MD EXAMINATION: MM SCREENING [...] in OV> 11/06/23 1525 DD/ 1240 TD/TT: Railroad Mechanic: Procedure Note Donotuseinterpreter, Image - 11/06/2023 [facility] [address] [place], [place] [address] Mammography Report Signed Patient: Sindi ObrienMR#: [id number] : 2Acct:[id number] Age/Sex: 72 / FADM Date: 10/24/23 Loc: HO.MAMMO Attending Dr: Ventura Shi MD Ordering Physician: Ventura Shi MDResu lts: 2Benign Findings Date of Service: 10/24/23Follow Up: 1 Year From Orig inal Mammogram Procedure(s): MM tomosynthesis screening BI Accession Number(s): [id number] cc: Ventura Shi MD EXAMINATION: MM SCREENING [...] in OV> 11/06/23 1525 DD/ 1240 TD/TT: Railroad Mechanic: us Ventura Maldonado MD IMG BI PROCEDURES Ortiz cesar Result - Final * Hm Colonoscopy (09/01/2015) Colonoscopy Normal Normal 09/01/2015 Brittany Patel - 09/01/2015 11:54 AM EST Recommended 10 year follow up us Historical Provider HEALTH MAINTENANCE Edited Result - Final from Last 3 Months or Most Recently Relevant [place] [id number] [facility] [place] [place] [id number] Care Teams Pit Slagman Relationship Specialty Start Date End Date Ventura Tavares MD [address] [place] [address] PCP - General Internal Medicine 03/11/14 Garrison Silverio MD [address] [place] [address] Drive [address] [place] [address] Nephrology 11/29/24
--- OUTSIDE RECORDS SUMMARY | 2025-02-13 11:41 | XMS_ITS | Patient Health Record ---
Author Organization [facility] Address [address] [place] [address] Care Team Providers Care Rotary Bar Operator Name Role Phone Zeus Maldonado MD, Ventura Primary Care Provide Castillo Cash Unavailable [phone] Allergies Allergen (clinical drug ingredient) Drug/Non Drug [...] for 30 days 10/13/2022 Active Vitamin D3 50095 UNIT 1 tablet Orally On ce a [...] W/U Status Risk Notes Problem Epigastric pain (78555495) Epigastric abdominal pain (R10.13) Active confirmed Problem 593750657 Encounter for screening for malignant neoplasm of colon (Z12.11) Active confirmed Problem Screening for malignant neoplasm of rectum (546960453) Encounter for screening for malignant neoplasm of rectum (Z12.12) Active confirmed Problem 358923270 Long-term use of aspirin therapy (Z79.82) Active confirmed Problem 96064442 Constipation, unspecified constipation type (K59.00) Active confirmed Problem Gastroesophageal reflux disease (284444957) GERD (gastroesophage al reflux disease) (K21.9) Active confirmed Problem Chronic constipation (103417563) Constipation, chronic (K59.00) Active confirmed Plan Of Treatment Pending Test Test Name Order Date US ABD 05/23/2020 TSH REFLEX FREE T4 10/13/2022 Future Test Test Name Order Date COLONOSCOPY 06/12/2015 UPPER GI ENDOSCOPY 05/23/2020 Insurance Providers Payer Name Payer Address Payer Phone Subscriber Number Group Number Insured Name Patient Relationship to Insured Coverage Start Date Coverage End Date [facility] [address] [place] [address] [id number] CARINE LOCKHART Self - patient is the insured Medical (General) History Medical History History ICD Code Screening colonoscopy 01/2005 and 08/2015--negative except for diverticulosis and internal hemorrhoids IDDM Hyperlipidemia Denies [place] CVA > 10 yrs ago Asthma Chronic kidney disease state III-Dr. Hall iesarah HTN GERD Surgical History Surgery Date(Month/Year) Appendectomy Tubal ligation KATHARINA Cataracts and lens implants
== END 2025-02-13 11:30 | disposition home or self-care (01) ==
LOC: HO.HKA 10:40
PROVIDERS: PCP Internal Medicine; Visit Provider Internal Medicine Nephrology
DX: I10 Essential (primary) hypertension (principal); E11.21 Type 2 diabetes mellitus with diabetic nephropathy; E11.22 Type 2 diabetes mellitus with diabetic chronic kidney disease; N18.30 Chronic kidney disease, stage 3 unspecified
CPT/HCPCS: 99214

== ENCOUNTER → 2025-02-13 10:40 | Outpatient (BNVA) | payer OTHER, SELFPAY | PROVIDERS: PCP Internal Medicine; Visit Provider Internal Medicine Nephrology | DX: E11.21 Type 2 diabetes mellitus with diabetic nephropathy (principal); I12.9 Hypertensive chronic kidney disease with stage 1 through stage 4 chronic kidney disease, or unspecified chronic kidney disease; E11.22 Type 2 diabetes mellitus with diabetic chronic kidney disease; N18.30 Chronic kidney disease, stage 3 unspecified | CPT/HCPCS: 99212 ==

== ENCOUNTER 2025-02-13 12:53 | Emergency (ER) | payer OTHER, SELFPAY ==
--- NOTE | ~2025-02-13 | CT_ITS ---
EXAMINATION: CT ABDOMEN AND PELVIS WITHOUT CONTRAST CLINICAL INFORMATION: Hematuria or vaginal bleeding. COMPARISON: September 06, 2022. TECHNIQUE: Multidetector volumetric imaging was performed from the superior aspect of the liver through the pubic symphysis. Sagittal and coronal reformatted images were obtained on the technologist's workstation. This CT examination was performed using dose optimization techniques as appropriate, variously including the following: *Automated exposure control *Adjustment of mA and/or kV according to patient size (this includes techniques or standardized protocols for targeted exams where dose is matched to indication/reason for exam; i.e. extremities or head) *Use of iterative reconstruction technique FINDINGS: Inadequate evaluation of the intra-abdominal organs and vascular structures due to lack of IV contrast. LUNG BASES: Linear attenuation in the lingula and right middle lobe. LIVER, GALLBLADDER, AND BILIARY TREE: [Liver measures 15 cm. There is an intraluminal hyperdensity in the gallbladder. No pericholecystic fluid collection or gallbladder wall thickening. No gallbladder distention. No intrahepatic or extrahepatic biliary ductal dilatation. PANCREAS: No peripancreatic fluid collection. No main pancreatic ductal dilatation. SPLEEN: 9 cm. ADRENAL GLANDS: No nodular lesion. KIDNEYS AND URETERS: No hydronephrosis. No nephrolithiasis. Bilateral renal cortical thinning. Vascular calcifications in the renal hilum bilaterally. BLADDER: Collapsed bladder with urinary bladder wall thickening. GASTROINTESTINAL TRACT: Abundant stool, large intestine. No gross diverticulum. No intestinal obstruction pattern. No pneumatosis intestinalis. No pneumoperitoneum. Terminal ileum is normal. I do not see the appendix, though no pericecal edema pattern. No ascites. Hyperdensity within the stomach lumen. ABDOMINAL WALL: Small fat-containing umbilical hernia. Diastases abdominal rectus muscles. Focal edema pattern with partial calcifications beneath the skin of the left midline lower abdomen wall. LYMPH NODES: Mild prominent retroperitoneum and mesenteric. VASCULAR: Calcified plaques in the coronary arteries, aorta, iliac arteries, splenic artery and mesenteric arteries. No aneurysm in the abdominal aorta. Calcified seen in the femoral arteries. PELVIC VISCERA: Inadequate evaluation. Absent uterus. OSSEOUS STRUCTURES: Mild degenerative changes in the coxofemoral joints and sacroiliac joints. Osteopenia versus osteoporosis. Multilevel thoracolumbar spondylosis. No acute fracture or gross listhesis. CT/CT abdomen pelvis wo IV con IMPRESSION: No hydronephrosis or nephrolithiasis. Consider medical renal disease. Thickened urinary bladder wall. Inflammatory versus infectious processes should be considered in the correct clinical settings. Neoplasm cannot be excluded. Coronary artery disease and atherosclerosis disease. Probable cholelithiasis. Hyperdensity within the stomach lumen. Fleischner guidelines were followed. Electronically signed by: Hakeem Kumar MD 02/13/2025 03:53 PM EDT
[2025-02-13 13:02] VITALS: BP 160/66; PULSE 79; RESP 16; TEMP 36.3; O2SAT 98; BMI 39.9
--- NOTE | 2025-02-13 13:02 | ED_ITS ---
HPI - General Adult General Chief complaint: Vaginal Bleeding Stated complaint: vaginal bleeding Time Seen by Provider: 02/13/25 14:18 Source: patient and RN notes reviewed Mode of arrival: ambulatory Limitations: no limitations History of Present Illness ED Provider: Airam Vuong PA-C HPI narrative: This is a 74-year-old female, CKD, peripheral neuropathy, PB, HTN, diabetes, prior CVA, who presents emergency department with concerns of ?vaginal bleeding. Patient reports that over several days she has had vaginal spotting. She states that she has not had her menses in many years. She did have a total hysterectomy. She denies any fevers, chills, chest pain, shortness of breath, abdominal pain, nausea, vomiting or diarrhea. No urinary symptoms. She does endorse some constipation, which is chronic for her, no changes. Patient was seen at her kidney specialist this morning, and mentioned that she was having vaginal bleeding and spotting and was told to follow-up with a refuge worker. She has not seen a refuge worker in many years. No other complaints or concerns at this time. MD complaint: ? Vaginal bleeding Onset (ago): day(s) Radiation: non-radiation Quality: aching Pain Consistency: constant Relieving factors: none Exacerbating factors: none Associated symptoms: denies other symptoms Treatments prior to arrival: none Related Data Home Medications ?Medication ?Instructions ?Recorded ?Confirmed metoprolol tartrate 25 mg tablet 25 mg PO BID 06/16/20 12/24/24 aspirin 81 mg tablet,delayed 81 mg PO DAILY 09/19/20 0 12/24/24 release hydralazine 25 mg tablet 25 mg PO BID 11/26/20 Previous Rx's ?Medication ?Instructions ?Recorded acetaminophen 500 mg tablet 1,000 mg (2 x 500 mg) PO Q ID PRN 04/15/21 (Tylenol Extra Strength) fever or pain #14 tabs blood sugar diagnostic (FreeStyle #100 ea 08/21/21 Lite Strips) gabapentin 300 mg capsule 300 mg PO BEDTIME #90 caps 0 08/21/21 lancets 33 gauge (TRUEplus Lancets) #100 ea 08/21/21 atorvastatin 40 mg tablet 40 mg PO BEDTIME #90 tabs blood-glucose sensor (FreeStyle #2 ea 02/10/24 Blake 3 Sensor device) blood-glucose,waxing machine operator helper,cont #1 ea 02/10/24 (FreeStyle Blake 3 Cardwell) blood-glucose,waxing machine operator helper,cont #1 ea 02/10/24 (FreeStyle Blake 3 Cardwell) sodium polystyrene sulfonate 30 g PO .once a week #453 .6 grams 05/25/24 insulin glargine 100 unit/mL (3 30 unit (0.3 mL) subcu t BEDTIME 90 10/08/24 mL) subcutaneous pen days #30 mL blood-glucose sensor (FreeStyle #2 ea 10/19/24 Blake 3 Plus Sensor device) furosemide 20 mg tablet 40 mg (2 x 20 mg) PO DAILY # 90 tabs 10/29/24 empagliflozin 25 mg tablet 25 mg PO QAM 30 days #30 ta bs 11/21/24 dulaglutide 3 mg/0.5 mL 3 mg (0.5 mL) subcut QWEEK # 2 mL 12/24/24 subcutaneous pen injector (Trulicity) insulin aspart U-100 100 unit/mL 6 unit (0.06 mL) subc ut TID #15 mL 12/24/24 (3 mL) subcutaneous pen (Novolog FlexPen U-100 Insulin aspart) pen needle, diabetic 32 gauge x #400 ea 01/03/25 metronidazole 0.75 % topical gel 1 appl topical BEDTIM E 5 days #45 02/13/25 grams Allergies Allergy/AdvReac Type Severity Reaction Status Date / Time metformin (From GLUCOPHAGE) AdvReac Unknown DIARRHEA Verified 02/13/25 13:05 Review of Systems 2 Review of Systems: Yes all other systems are reviewed and are negative Constitutional: Constitutional: Reports as per [facility] Past Medical History Attestation statement: The following information was validated with the patient. Medical History Snoring Dyspnea on exertion PB (obstructive sleep apnea) Hypoxemia Breast calcification, right Obesity due to excess calories Peripheral nerve facial nerve paralysis History of CVA (cerebrovascular accident) GERD (gastroesophageal reflux disease) Asthma Morbid obesity Hypertension CKD stage 3 due to type 2 diabetes mellitus correction (current) use of insulin Diabetic nephropathy associated with type 2 diabetes mellitus Dyslipidemia Diabetes type 2, uncontrolled Surgical History Hx of tubal ligation Hx of bilateral cataract extraction Hx of hysterectomy History of appendectomy Family History Family History Father Cancer Mother Diabetes mellitus Social History Social History Household Members: None Housing: Apartment Do you presently have visiting nurse or other home services: Yes Alcohol intake: never Patient Tobacco Use Status: Never used Tobacco Second Hand Smoke Exposure: No Advance Directives Date on File: 11/26/20 service: No Current occupational status: disabled Current occupation: rt handed Physical Exam ED Vital Signs: Vital Signs - 24 hr 02/13/25 13:02 02/13/25 13:40 02/13/25 16:15 Temperature 97.4 F 97.6 F Pulse Rate 79 80 77 Respiratory Rate 16 16 12 Blood Pressure 160/66 H 152/58 H 191/68 H Pulse Oximetry 98 95 97 Oxygen Delivery Method Room Air Room Air Room Air 02/13/25 17:00 02/13/25 17:14 Temperature 98.7 F Pulse Rate 65 Respiratory Rate 16 Blood Pressure 181/59 H 181/59 H Pulse Oximetry 95 Oxygen Delivery Method Room Air BMI result Body Mass Index 39.9 Const General: cooperative, comfortable and no acute distress Orientation/consciousness: patient oriented x3 Limitations: no limitations HENMT Head: Yes normal to inspection, Yes normocephalic and Yes atraumatic Ears: hearing grossly normal bilaterally General nose exam: Normal external nose present Face and sinus: Yes normal facial exam Mouth: Normal oral and palatal mucosa present, oropharynx normal and moist mucous membranes Throat: Yes posterior oropharynx normal Eyes General: appearance normal, both eyes and all related structures Eyelids: Yes eyelids normal Conjunctivae: conjunctivae normal Sclerae: sclerae normal Pupils: Equal, round and reactive pupils present EOM: EOMs intact bilaterally Neck Neck: Yes normal visual inspection, Yes full ROM and Yes no lymphadenopathy Lymphatic: no lymphadenopathy noted Chest Chest palpation & inspection: normal inspection of the chest Resp Effort & Inspection: normal respiratory effort and able to speak in complete sentences Auscultation: clear to auscultation bilaterally, no crackles, no rales, no rhonchi and no wheezes Cardio Rate: regular rate Rhythm: regular rhythm Heart sounds: S1 normal heart sound present and S2 normal heart sound present GI Inspection: Yes normal to inspection Other: Pelvic examination was performed with DOMINGA Haq present at all times. Cervical os is closed, no bleeding noted within the vaginal vault. She does have white discharge noted in the vaginal canal. No cervical motion tenderness. External Female Exam: normal external appearance and normal appearance of the urethra Speculum Exam - Cervix: normal appearance of the cervix, normal palpation and Cervical os closed Bimanual exam- vagina & uterus: normal bimanual exam and normal palpation Skin General skin exam: no rashes or lesions noted Trauma: no lacerations or abrasions Wounds: no wounds Neuro General: patient oriented x3 and moves all extremities Cranial nerves: Yes Equal, round and reactive pupils present Extrem General: Yes normal to inspection Right upper extremity: normal to inspection Left upper extremity: normal to inspection Right lower extremity: normal to inspection Left lower extremity: normal to inspection Course Course Course Narrative: This is a rapid medical exam performed by Srinivas Chawla NP: Additional HPI, ROS, PE not included below will be deferred to primary provider. Patient is a 74-year-old Kyrgyz speaking female with history of CKD 3, T2DM, HTN, PB, cerebral infarct presenting with complaint of 2 episodes of small amount of vaginal bleeding yesterday. Referred by monomer recovery operator who she saw today. Plan: labs, UA Medical Decision Making Medical Decision Making [facility] Narrative: This is a 74-year-old female, CKD, peripheral neuropathy, PB, HTN, diabetes, prior CVA, who presents emergency department with concerns of ?vaginal bleeding. On arrival, blood pressure elevated at 160/66, all other vital signs within normal limits. She is speaking full sentences under no acute distress. Abdomen is soft and nontender. She has had multiple episodes of vaginal spotting. She is sexually active with 1 partner, does admit that her partner has not been monogamous with her in the past. No abnormal vaginal discharge. No recent sexual activity over the last 2 weeks. She does endorse that she uses sexual toys however denies any use over the last 2 months. Deferring pelvic ultrasound secondary to having a total hysterectomy. 150 - speculum exam was performed, no obvious vaginal bleeding noted. She does have vaginal discharge noted within the vaginal canal. Unclear if this was true vaginal spotting or other pathology. Will obtain CT abdomen and pelvis without contrast. 1550 - CT scan returns, revealing thickened urinary bladder wall, UA does not appear to be infectious. Also discussed hyperdensity within the stomach lumen, cholelithiasis. This is all discussed with apiculturist at bedside. Advised to follow-up with your primary care physician, advised to call tomorrow. Discussed this finding with patient, advised to follow-up with her PCP. Also encouraged to follow-up with a refuge worker as she has had post menopausal bleeding, and discussed that this could be indicative of malignancy. She understands the gravity of this, and we will call tomorrow. She did test positive for bacterial vaginosis, will treat outpatient. She expresses understanding of current medical care. She was found to be hypertensive at discharge, she admits that she did not take her blood pressure medication this morning. She denies any headache, dizziness, blurred vision, chest pain or shortness of breath. Patient stable for discharge. Differential Diagnosis Differential Diagnoses: The differential diagnosis associated with the presentation includes Postmenopausal bleeding, BV, trich, STI, atrophic vaginitis, nephrolithiasis Admission/Observation Consideration of admission/observation: Escalation of care including admission/observation considered Lab Data [facility] Lab Attestation statement: I reviewed the patient's lab results. See MDM and course 02/13/25 13:44 02/13/25 13:44 Labs: Lab Results 02/13/25 02/13/25 02/13/25 Range/Units 13:44 15:07 15:18 WBC 6.1 (4.8-10.8) X10*3/uL RBC 3.59 L (4.20-5.50) X10*6/uL Hgb 11.3 L (12.0-16.0) g/dl Hct 33.9 L (37.0-47.0) % MCV 94.4 (80.0-98.0) fL MCH 31.5 (27.0-33.0) pg MCHC 33.3 (31.0-35.0) g/dl RDW 11.9 (11.0-16.0) % Plt Count 184 (160-400) X10*3/uL MPV 10.2 (9.4-12.3) fL Immature Gran % (Auto) 0.2 (0.0-0.4) % Neut % (Auto) 65.4 (45-73) % Lymph % (Auto) 19.8 L (20-40) % [place] % (Auto) 7.8 (2-11) % Eos % (Auto) 6.3 H (0-4) % Baso % (Auto) 0.5 (0-2) % Lymph # (Auto) 1.2 (1.2-4.9) X10*3/uL [place] # (Auto) 0.5 (0.1-1.2) X10*3/uL Eos # (Auto) 0.4 (0.0-0.4) X10*3/uL Baso # (Auto) 0.0 (0.0-0.2) X10*3/uL Abs Immat Gran (auto) 0.01 (0.00-0.03) X10*3/uL Absolute Neuts (auto) 4.0 (2.0-8.3) x10*3/uL Absolute Nucleated RBC 0.000 (0.0-0.012) X10*3/uL Nucleated RBC % (auto) 0.0 (0.0-0.2) /100WBC Sodium 142 (135-145) mmol/L Potassium 5.0 (3.3-5.1) mmol/L Chloride 108 (96-108) mmol/L Carbon Dioxide 28 (22-29) mmol/L Anion Gap 11 L (12-20) BUN 35 H (9-16) mg/dL Creatinine 1.72 H (0.5-1.4) mg/dL Estim Creat Clear Calc 21.4 Estimated GFR 29 Random Glucose 194 H (60-115) mg/dL Calcium 9.0 (8.4-10.2) mg/dL Total Bilirubin 0.3 (0.0-1.0) mg/dL AST 23 (5-31) U/L ALT 32 H (0-31) U/L Alkaline Phosphatase 145 H (39-117) U/L Total Protein 7.1 (6.5-8.0) g/dL Albumin 4.0 (3.5-5.0) g/dL Lipase 28 (8-78) U/L Urine Color Yellow Urine Appearance Clear Urine pH 5.5 (5.0-9.0) Ur Specific [place] 1.020 (1.005-1.025) Urine Protein Trace (Neg-Trace) mg/dL Urine Glucose (UA) >=1000 H (Negative) mg/dL Urine Ketones Negative (Negative) mg/dL Urine Blood Negative (Negative) Urine Nitrite Negative (Negative) Ur Leukocyte Esterase Negative (Negative) Urine RBC 0-2 (0-2) /HPF Urine WBC 0-5 (0-5) /HPF Ur Squamous Epith Cells 0-2 (0-2) /HPF Urine Bacteria None Seen (None Seen) Hyaline Casts 0-2 (0-2) /LPF Chlam trachomat DNA PCR NOT DETECTED (Not Detect.) N.gonorrhoeae DNA (PCR) NOT DETECTED (Not Detect.) T. vaginalis (PCR) NOT DETECTED (Not Detect) Bact vaginosis (PCR) POSITIVE A (Negative) C. krusei/glabrata (PCR) NOT DETECTED (Not Detect) Celestina group (PCR) NOT DETECTED (Not Detect) Radiology Impression Discussion of test interpretation with radiology: I have reviewed the radiologist's reading. Radiologist Impression: FINDINGS: Inadequate evaluation of the intra-abdominal organs and vascular structures due to lack of IV contrast. LUNG BASES: Linear attenuation in the lingula and right middle lobe. LIVER, GALLBLADDER, AND BILIARY TREE: [Liver measures 15 cm. There is an intraluminal hyperdensity in the gallbladder. No pericholecystic fluid collection or gallbladder wall thickening. No gallbladder distention. No intrahepatic or extrahepatic biliary ductal dilatation. PANCREAS: No peripancreatic fluid collection. No main pancreatic ductal dilatation. SPLEEN: 9 cm. ADRENAL GLANDS: No nodular lesion. KIDNEYS AND URETERS: No hydronephrosis. No nephrolithiasis. Bilateral renal cortical thinning. Vascular calcifications in the renal hilum bilaterally. BLADDER: Collapsed bladder with urinary bladder wall thickening. GASTROINTESTINAL TRACT: Abundant stool, large intestine. No gross diverticulum. No intestinal obstruction pattern. No pneumatosis intestinalis. No pneumoperitoneum. Terminal ileum is normal. I do not see the appendix, though no pericecal edema pattern. No ascites. Hyperdensity within the stomach lumen. ABDOMINAL WALL: Small fat-containing umbilical hernia. Diastases abdominal rectus muscles. Focal edema pattern with partial calcifications beneath the skin of the left midline lower abdomen wall. LYMPH NODES: Mild prominent retroperitoneum and mesenteric. VASCULAR: Calcified plaques in the coronary arteries, aorta, iliac arteries, splenic artery and mesenteric arteries. No aneurysm in the abdominal aorta. Calcified seen in the femoral arteries. PELVIC VISCERA: Inadequate evaluation. Absent uterus. OSSEOUS STRUCTURES: Mild degenerative changes in the coxofemoral joints and sacroiliac joints. Osteopenia versus osteoporosis. Multilevel thoracolumbar spondylosis. No acute fracture or gross listhesis. CT/CT abdomen pelvis wo IV con IMPRESSION: No hydronephrosis or nephrolithiasis. Consider medical renal disease. Thickened urinary bladder wall. Inflammatory versus infectious processes should be considered in the correct clinical settings. Neoplasm cannot be excluded. Coronary artery disease and atherosclerosis disease. Probable cholelithiasis. Hyperdensity within the stomach lumen. Fleischner guidelines were followed. Electronically signed by: Hakeem Kumar MD 02/13/2025 03:53 PM EDT RP Dictated By: Hakeem Bustos MD Discharge Plan Discharge Clinical Impression: Bacterial vaginosis, Post-menopausal bleeding Patient Disposition: Home, Self-Care Instructions: Bacterial Vaginosis (ED) Additional Instructions: You need to follow-up with an OBGYN, call tomorrow to make an appointment. You tested positive for bacterial vaginosis. Please use metronidazole vaginal gel vaginally nightly for 5 days. We will call you if any of your other testing is positive. Please follow-up with your primary care physician regarding this visit. If any new or worsening symptoms occur including but not limited to worsening bleeding, abdominal pain, chest pain or shortness of breath, please seek emergent care. Prescriptions: New metronidazole 0.75 % gel 1 appl topical BEDTIME 5 Days Qty: 45 0RF No Action atorvastatin 40 mg tablet 40 mg PO BEDTIME Qty: 90 0RF Rx Instructions: SEND FUTURE REFILLS TO PCP (DME) FreeStyle Blake 3 Cardwell Misc See Rx Instructions .ROUTE .MEDSUPPLY Qty: 1 0RF Rx Instructions: As directed (DME) FreeStyle Blake 3 Cardwell Misc See Rx Instructions .ROUTE .MEDSUPPLY Qty: 1 0RF Rx Instructions: Use daily As directed to monitor type 2 diabetes (DME) FreeStyle Blake 3 Sensor Device See Rx Instructions .ROUTE .MEDSUPPLY Qty: 2 11RF Rx Instructions: Apply every 14 days As directed sodium polystyrene sulfonate Powder 30 g PO .once a week Qty: 453.6 4RF (DME) FreeStyle Blake 3 Plus Sensor Device See Rx Instructions .ROUTE .MEDSUPPLY Qty: 2 5RF Rx Instructions: Use daily As directed to monitor glucose furosemide 20 mg tablet 40 mg PO DAILY Qty: 90 3RF (DME) pen needle, diabetic 32 gauge x 5/32 needle See Rx Instructions .MEDSUPPLY Qty: 400 4RF Rx Instructions: 5 times a day acetaminophen [Tylenol Extra Strength] 500 mg tablet 1,000 mg PO QID PRN (Reason: fever or pain) Qty: 14 0RF hydralazine 25 mg tablet 25 mg PO BID Rx Instructions: has not started metoprolol tartrate 25 mg tablet 25 mg PO BID aspirin 81 mg tablet,delayed release (DR/EC) 81 mg PO DAILY (DME) FreeStyle Lite Strips Strip See Rx Instructions .ROUTE .MEDSUPPLY Qty: 100 11RF Rx Instructions: As directed three times a day (DME) lancets [TRUEplus Lancets] 33 gauge misc See Rx Instructions .ROUTE .MEDSUPPLY Qty: 100 11RF Rx Instructions: As directed 3x/day gabapentin 300 mg capsule 300 mg PO BEDTIME Qty: 90 5RF insulin aspart U-100 [Novolog FlexPen U-100 Insulin] 100 unit/mL (3 mL) insulin pen 6 unit subcut TID Qty: 15 3RF Rx Instructions: with meals Trulicity 3 mg/0.5 mL pen injector 3 mg subcut QWEEK Qty: 2 4RF insulin glargine 100 unit/mL (3 mL) insulin pen 30 unit subcut BEDTIME 90 Days Qty: 30 1RF empagliflozin 25 mg tablet 25 mg PO QAM 30 Days Qty: 30 6RF Referrals: [facility] [Provider Group, POPULATION GENETICIST] Referral Note: post menopausal bleeding [facility] [place] [facility] [Provider Group] Referral Note: post menopausal bleeding Interventions: ED Discharge Assessment Last Done: 02/13/25 17:14 Discharge Date/Time: 02/13/25 17:14 Print Language: Kyrgyz
[2025-02-13 13:40] VITALS: BP 152/58; PULSE 80; RESP 16; O2SAT 95
[2025-02-13 13:50] LABS: MANUAL DIFF FLAG NO
[2025-02-13 13:56] LABS: Hematocrit 33.9 % (37.0-47.0); Hemoglobin 11.3 g/dl (12.0-16.0); Imm Gran Abs Auto 0.01 X10*3/uL (0.00-0.03); Imm Gran Pct Auto 0.2 % (0.0-0.4); Lymphocytes Absolute Auto 1.2 X10*3/uL (1.2-4.9); Mean Corpuscular HGB Conc 33.3 g/dl (31.0-35.0); Mean Corpuscular Hemoglobin 31.5 pg (27.0-33.0); Mean Corpuscular Volume 94.4 fL (80.0-98.0); NRBC Abs Auto 0.000 X10*3/uL (0.0-0.012); NRBC Pct Auto 0.0 /100WBC (0.0-0.2); Platelet Count 184 X10*3/uL (160-400); Red Blood Count 3.59 X10*6/uL (4.20-5.50); White Blood Count 6.1 X10*3/uL (4.8-10.8)
[2025-02-13 14:06] LABS: Alanine Aminotransferase 32 U/L (0-31); Albumin Level 4.0 g/dL (3.5-5.0); Alkaline Phosphatase 145 U/L (39-117); Anion Gap 11 (12-20); Aspartate Amino Transferase 23 U/L (5-31); Blood Urea Nitrogen 35 mg/dL (9-16); Calcium 9.0 mg/dL (8.4-10.2); Carbon Dioxide 28 mmol/L (22-29); Chloride 108 mmol/L (96-108); Creatinine Clr Calc Pharmacy 21.4; Estimated Glomerular Filt Rate 29; Lipase 28 U/L (8-78); Potassium 5.0 mmol/L (3.3-5.1); Sodium 142 mmol/L (135-145); Total Protein 7.1 g/dL (6.5-8.0)
[2025-02-13 15:24] LABS: Appearance Urine Clear; Glucose Urine UA >=1000 mg/dL (Negative); PH 5.5 (5.0-9.0); Specific Gravity - Urine 1.020 (1.005-1.025); UMIC TRIGGER UACC YES
[2025-02-13 16:15] VITALS: BP 191/68; PULSE 77; RESP 12; TEMP 36.4; O2SAT 97
[2025-02-13 16:22] LABS: Bacterial Vaginosis PCR POSITIVE (Negative); Candida Group PCR NOT DETECTED (Not Detect); Candida glab krusei PCR NOT DETECTED (Not Detect); Trichomonas vaginalis PCR NOT DETECTED (Not Detect)
[2025-02-13 16:52] LABS: CT PCR NOT DETECTED (Not Detect.); NG PCR NOT DETECTED (Not Detect.)
[2025-02-13 17:00] VITALS: BP 181/59
[2025-02-13 17:14] VITALS: BP 181/59; PULSE 65; RESP 16; TEMP 37.1; O2SAT 95
== END 2025-02-13 17:14 | disposition home or self-care (01) ==
PROVIDERS: Physician Assistant Medical; Registered Nurse Emergency; Emergency Provider Emergency Medicine; PCP Internal Medicine
DX: N76.0 Acute vaginitis (principal); N95.0 Postmenopausal bleeding; R10.2 Pelvic and perineal pain; Z79.899 Other long term (current) drug therapy
CPT/HCPCS: 36415; 74176; 80053; 81001; 81515; 83690; 85025; 87491; 87591; 99284

== ENCOUNTER → 2025-02-13 15:07 | Outpatient (BNV) | payer OTHER, SELFPAY | PROVIDERS: Emergency Provider Emergency Medicine; PCP Internal Medicine; Visit Provider Radiology Diagnostic Radiology | DX: N93.9 Abnormal uterine and vaginal bleeding, unspecified (principal) | CPT/HCPCS: 74176 ==

== ENCOUNTER 2025-04-05 08:35 | Outpatient (AMB) | payer OTHER, SELFPAY ==
[2025-04-05 08:39] VITALS: BP 136/62; PULSE 73; O2SAT 96; BMI 26.4
--- NOTE | 2025-04-05 08:39 | A.OFFVIS_ITS ---
Vital Signs 04/05/25 08:39 Height 5 ft 5 in Weight 158 lb 11.725 oz BMI 26.4 BP 136/62 Blood Pressure Location Rt brachial Position Sitting Pulse 73 Pulse Source Pulse Oximeter Pulse Oximetry (%) 96 Oxygen Delivery Method Room Air Intake Visit Reasons: T2DM Intake Note: Patient present today for Type 2 Diabetes Mellitus Last Diabetic eye exam: 02/2025, [facility] Last Podiatry Visit: 03/26/2024, [facility], next appt 06/11/2025 Random Glucose: 90 mg/dL HgA1C: 7.8%, 01/11/2025 Parker Required: Yes Parker Language: Icelandic Accompanied by: Self / Same As Patient Allergies metformin (From GLUCOPHAGE) Adverse Reaction (Unknown, Verified 04/05/25 08:43) DIARRHEA Medication List - Last Reconciled 04/05/25 by Suyapa Best PA-C acetaminophen (Tylenol Extra Strength) 1,000 mg (2 x 500 mg) PO QID PRN aspirin 81 mg PO DAILY atorvastatin 40 mg PO BEDTIME blood sugar diagnostic (FreeStyle Lite Strips) As directed three times a day blood-glucose meter (FreeStyle Lite Meter kit) Use daily As directed to check blood sugars blood-glucose sensor (FreeStyle Blake 3 Sensor device) Apply every 14 days As directed blood-glucose sensor (FreeStyle Blake 3 Plus Sensor device) Use daily As directed to monitor glucose blood-glucose,security director,cont (FreeStyle Blake 3 [place]) Use daily As directed to monitor type 2 diabetes blood-glucose,security director,cont (FreeStyle Blake 3 [place]) As directed empagliflozin 25 mg PO QAM 30 days furosemide 40 mg (2 x 20 mg) PO DAILY gabapentin 300 mg PO BEDTIME hydralazine 25 mg PO BID insulin aspart U-100 (Novolog FlexPen U-100 Insulin aspart) 6 units (0.06 mL) subcut TID insulin glargine 30 units (0.3 mL) subcut BEDTIME 90 days lancets (TRUEplus Lancets) As directed 3x/day metoprolol tartrate 25 mg PO BID metronidazole 0.75% 1 appl topical BEDTIME 5 days pen needle, diabetic 5 times a day sodium polystyrene sulfonate 30 grams PO .once a week HPI HPI T2DM: Details: Patient is a 74-year-old female with a significant past medical history of CKD, peripheral neuropathy, PB, hypertension, type 2 diabetes, insulin-dependent, prior CVA presenting today for follow-up regarding her diabetes. Her daughter is here today to help with translation Endo: Her last A1c was 7.8. She is on Lantus 30 units, NovoLog 6-8 units t.i.d., despite eating 4-5 big meals a day, jardiance 25 mg, and trulicity 3 mg weekly. She has nausea with the higher dose of Trulicity and states that she really would like you switch Mounjaro because it also seems like the Trulicity is giving her some constipation. She states previously with Mounjaro she had diarrhea but she thinks it was related to diet and wants to try this again. She says the Ozempic she did not tolerate at all and had the nausea and vomiting.. CGM- she has not had a sensor for the last 3 weeks. She states that she is dealing with issues with insurance covering them. She states that her last sensor also fell off early. CV: Blood pressure today in the office is 136/62. She is currently on metoprolol 25 mg b.i.d., hydralazine 25 mg twice a day, furosemide 40 mg daily. cholesterol is controlled with atorvastatin 40 mg. Last LDL was 64. She follows Cardiology and Nephrology. 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 Diabetic nephropathy associated with type 2 diabetes mellitus Dyslipidemia Diabetes type 2, uncontrolled Surgical History Hx of tubal ligation Hx of bilateral cataract extraction Hx of hysterectomy History of appendectomy Family History Father Cancer Mother Diabetes mellitus Social History Household Members: None Housing: Apartment Do you presently have visiting nurse or other home services: Yes Alcohol intake: never Patient Tobacco Use Status: Never used Tobacco Second Hand Smoke Exposure: No Advance Directives Date on File: 11/26/20 service: No Current occupational status: disabled Current occupation: rt handed Female Reproductive History Menstrual Age of Menarche: 12 Physical Exam Vital Signs: Last Vital Signs Pulse 73 04/05/25 08:39 BP 136/62 04/05/25 08:39 Pulse Ox 96 04/05/25 08:39 Oxygen Delivery Method Room Air 04/05/25 08:39 BMI result Body Mass Index 26.4 Const Orientation/consciousness: patient oriented x3 HEENT Ears: hearing grossly normal bilaterally Neck Thyroid: Thyroid normal Lymphatic: no lymphadenopathy noted Resp Auscultation: clear to auscultation bilaterally Cardio Rate: regular rate Rhythm: regular rhythm Heart sounds: S1 normal heart sound present and S2 normal heart sound present Skin General skin exam: no rashes or lesions noted Neuro General: patient oriented x3, gait normal and no focal motor deficits Results Reviewed Results Reviewed: Laboratory Last Values Glucose (Clinic) 90 mg/dL (60-115) 04/05/25 08:46 Laboratory Tests 01/11/25 02/13/25 04/05/25 08:00 13:44 08:46 Creatinine 1.72 H Estimated GFR 29 Glucose (Clinic) 90 Hemoglobin A1c % 7.8 H AST 25 ALT 18 Triglycerides 96 Cholesterol 138 LDL Cholesterol, Calc 59 HDL Cholesterol 60 Assessment & Plan Assessment & Plan (1) Diabetes type 2, uncontrolled: Comment: IDDM Code(s): E11.65 - Type 2 diabetes mellitus with hyperglycemia Category: Medical Plan: Sensor was given today in the office I have reordered sensors to her pharmacy. We did discuss that this should be covered as she is insulin dependent We will discontinue the Trulicity and switch back to Mounjaro. We discussed risks and benefits and adverse effects of this medication. She will let me know if she does not tolerate this. She will continue her current insulin regimen and Jardiance (2) Hypertension: Code(s): I10 - Essential (primary) hypertension Category: Medical Qualifiers: Hypertension type: primary hypertension Qualified Code(s): I10 - Essential (primary) hypertension Plan: WNL. Continue current regimen Medications: New tirzepatide (Mounjaro) 2.5 mg (0.5 mL) subcut QWEEK 2 mL 3RF Refilled blood-glucose sensor (FreeStyle Blake 3 Plus Sensor device) Use daily As directed to monitor glucose 6 ea 3RF E08.29 - Diabetes mellitus due to underlying condition with other diabetic kidney complication, R80.9 - Proteinuria, unspecified, Z79.4 - continuous churn buttermaker (current) use of insulin Coding Level of Care Code Est Pt Level 4 (16093) Complex EM visit Add On G2211 Diagnoses Diabetes type 2, uncontrolled E11.65 Primary hypertension I10 Hypertension type: primary hypertension
[2025-04-05 08:51] LABS: Glucose, Whole Blood 90 mg/dL (60-115)
--- OUTSIDE RECORDS SUMMARY | 2025-04-05 09:13 | XMS_ITS | Patient Health Record ---
Author Organization [facility] Address [address] [place] [address] Care Team Providers Care Optical Effects Line Up Person Name Role Phone Zeus Maldonado MD, [place] Primary Care Provide Castillo Cash Unavailable [phone] Allergies Allergen (clinical drug ingredient) Drug/Non Drug [...] for 30 days 10/13/2022 Active Vitamin D3 07015 UNIT 1 tablet Orally On ce a [...] W/U Status Risk Notes Problem Epigastric pain (40805137) Epigastric abdominal pain (R10.13) Active confirmed Problem 409495478 Encounter for screening for malignant neoplasm of colon (Z12.11) Active confirmed Problem Screening for malignant neoplasm of rectum (228938441) Encounter for screening for malignant neoplasm of rectum (Z12.12) Active confirmed Problem 020411192 Long-term use of aspirin therapy (Z79.82) Active confirmed Problem 84385808 Constipation, unspecified constipation type (K59.00) Active confirmed Problem Gastroesophageal reflux disease (325739263) GERD (gastroesophage al reflux disease) (K21.9) Active confirmed Problem Chronic constipation (547861197) Constipation, chronic (K59.00) Active confirmed Plan Of Treatment Pending Test Test Name Order Date US ABD 05/23/2020 TSH REFLEX FREE T4 10/13/2022 Future Test Test Name Order Date COLONOSCOPY 06/12/2015 UPPER GI ENDOSCOPY 05/23/2020 Insurance Providers Payer Name Payer Address Payer Phone Subscriber Number Group Number Insured Name Patient Relationship to Insured Coverage Start Date Coverage End Date [facility] [address] [place] [address] [id number] CARINE LOCKHART Self - patient is the insured Medical (General) History Medical History History ICD Code Screening colonoscopy 01/2005 and 08/2015--negative except for diverticulosis and internal hemorrhoids IDDM Hyperlipidemia Denies [place] CVA > 10 yrs ago Asthma Chronic kidney disease state III-Dr. Hall iesarah HTN GERD Surgical History Surgery Date(Month/Year) Appendectomy Tubal ligation KATHARINA Cataracts and lens implants
--- OUTSIDE RECORDS SUMMARY | 2025-04-05 09:13 | XMS_ITS | Clinical Summary ---
Author Organization [facility] Address [address] [place] [address] [address] [place] [phone] Phone Care Team Providers Care Financial Analysis Advisor Name Role Phone Ventura Schulz MD Primary [...] & Plan: Improving Pt seen at our [facility] by Dr Demarcus Larry, [place] negative [...] patient's age to complete this topic [place] [address] ([id number]) [place] [id number] [place] [address] [facility] ([id number]) [place] [id number] Care Teams Financial Analysis Advisor Relationship Specialty Start Date End Date Ventura Schulz MD [address] [place] [address] PCP - General 08/04/20
--- OUTSIDE RECORDS SUMMARY | 2025-04-05 09:13 | XMS_ITS | Encounter Summary ---
Author Organization [facility] Address [address] [place] [address] Care Team Providers Care Forestry Aid Name Role Phone Ventura Tavares MD Primary Care Provide r Garrison Silverio MD Unavailable Reason for Visit * Reason Comments Med Refill Encounter Details Date Type Department Care Team (Late st Contact Info) Description 02/24/2023 Refill [facility] [address] [place] [address] Ventura Tavares MD [address] [place] [address] Pain Social History Tobacco Use Types Packs/Day [...] as of this encounter Plan of Treatment Not on file documented as of this encounter Visit Diagnoses Diagnosis Pain Generalized pain documented in this encounter Additional Health Concerns Assessment Noted Time PHQ-9 Depression Total Score: 12 05/30/2 023 10:55 AM EDT documented as of this encounter Care Teams Forestry Aid Relationship Specialty Start Date End Date Ventura Tavares MD [address] [place] [id number] PCP - General Internal Medicine 03/11/14 Garrison Silverio MD [address] [place] [address] [address] [place] [id number] Nephrology 11/29/24 documented as of this encounter
--- OUTSIDE RECORDS SUMMARY | 2025-04-05 09:13 | XMS_ITS | Clinical Summary ---
Author Organization [employer] Address [address] [place] [address] [address] [place] [address] Care Team Providers Care Overhead Irrigator Name Role Phone Ventura Tavares MD Primary Care Provide r Garrison Silverio MD Unavailable Allergies Active Allergy Reactions Criticality Noted Date Comments Lisinopril Cough 07/23/2010 Metformin Diarrhea,Unknown 07/23/2010 Medications NovoLOG FLEXPEN 100 UNIT/ML pen INJECT 18 TO 20 UNITS BY SUBCUTANEOUS ROUTE THREE TIMES DAILY BEFORE MEALS 30 mL 6 05/24/20 23 Active acetaminophen (Tylenol) 500 MG tablet Take 2 tablets (1,000 mg) by mouth every 6 (six) hours if needed for moderate pain or fever. 40 tablet 01/10/20 24 Active insulin glargine (Lantus SoloStar) 100 [...] mouth Once per day. 07/02/20 24 Active Continuous Glucose Sensor (FreeStyle Blake 3 Sensor) misc USE DIRECTED TO CHECK BLOOD SUGAR CHANGE EVERY 14 DAYS 1 each 3 10/20/19 25 Active hydrALAZINE (Apresoline) 25 MG tablet TAKE 1 TABLET BY MOUTH TWICE DAILY IN THE MORNING AND AT BEDTIME 180 tablet 1 12/21/19 25 Active cholecalciferol (Vitamin D-3) 25 MCG (1000 UT) tabletIndications: Low vitamin D level Take 1 tablet (25 mcg) by mouth Once per day. 30 tablet 6 12/21/19 25 Active metoprolol tartrate (Lopressor) 25 MG tabletIndications: Primary hypertension TAKE 1 TABLET BY MOUTH TWICE DAILY IN THE MORNING AND AT BEDTIME 180 tablet 2 02/13/20 25 Active gabapentin (Neurontin) 300 MG capsuleIndications :Pain TAKE 1 CAPSULE BY MOUTH AT BEDTIME 90 capsule 02/28/20 25 Active Aspirin Low Dose 81 MG EC tablet TAKE 1 TABLET BY MOUTH EVERY MORNING 90 tablet 02/28/20 25 Active Active Problems Problem Noted Date [...] appears bluish ,regular borders -referred today to business solution analyst Routine physical examination 04/19/2023 Assessment & Plan [...] Larry spoke with Dr. Cosme's office (her savings teller), pt was seen 12/27/2023. We notified the office that her cruller maker Dr. Silverio prescribes Lasix 20 mg 2 tabs po daily. Patient followed by Dr Cosme Clean Room Operator, Previous Stress Test and ECHO unremarkable. Last seen 07/03/2024. Assessment & Plan (05/15/2024 1:05 PM EDT): Seen initially by Dr Demarcus Larry with c/o LE edema and elevated BNP, CXR was unermarkable. Dr. Larry spoke with Dr. Cosme's office (her savings teller), pt was seen 12/27/2023. We notified the office that her cruller maker Dr. Silverio prescribes Lasix 20 mg 2 tabs po daily. Patient followed by Dr Cosme Clean Room Operator, Previous Stress Test and ECHO unremarkable. Last seen 12/27/2023. Assessment & Plan (09/22/2023 11:38 AM EST): Seen by Dr Demarcus Larry with c/o LE edema, referred to cardiology seen by Dr Cosme Clean Room Operator, Stress Test and ECHO unremarkable Assessment & Plan (01/18/2023 10:50 AM EDT): Seen by Dr Demarcus Larry with c/o LE edema, referred to cardiology seen by Dr Cosme 01/06/2023 ECHO ordered [facility] care 01/18/2023 Assessment & Plan (12/04/2024 10:22 [...] 2:14 PM EST): Seeing Trinh Su at [facility] Hyperlipidemia 04/06/2012 Assessment & Plan (12/04/2024 10:06 [...] Plan: As per Endocrinology Eye exam with Paper Reel Operator [facility] diagnosed with DR both [...] Plan: As per Endocrinology Eye exam with Paper Reel Operator [facility] diagnosed with Dr. both eyes. Last seen 12/06/2023 Pt does not adhere to a diabetic diet, does not want to go any higher on her insulin dose as it was recommended by her Daycare Teacher. 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 Last seen 12/06/2023 Pt does not adhere to a diabetic diet, does not want to go any higher on her insulin dose as it was recommended by her Daycare Teacher. Pt advised to Adhere to diabetic diet [...] 81 mg po daily. 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 Pt advised to Adhere to diabetic diet [...] 81 mg po daily. 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 Pt advised to Adhere to diabetic diet [...] 81 mg po daily. 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 Pt advised to Adhere to diabetic diet [...] 81 mg po daily. 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 Pt advised to Adhere to diabetic diet [...] 81 mg po daily. 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 Pt advised to Adhere to diabetic diet [...] Encounters Date Type Department Care Team Description 04/05/2025 Orders Only GENERIC EXTERNAL DATA DEPARTMENT Provider, Generic External Data 02/27/2025 Refill [facility] [address] [place] [address] Ventura Tavares MD Pain 02/21/2025 Results Follow-Up [facility] [address] [place] [address] Ventura Tavares MD CBC auto differential, Comprehensive Metabolic Panel, Lipase, Additional followed-up results: 4 02/13/2025 Orders Only GENERIC EXTERNAL DATA DEPARTMENT Provider, Generic External Data 02/11/2025 Refill [facility] MEDIC[facility] [address] [place] [address] Ventura Tavares MD Primary hypertension from Last 3 Months Immunizations Immunization Administration [...] 12/04/2024 10:00 AM EDT Plan of Treatment Health Maintenance Due [...] 05/05/2022, Additional history exists Diabetes: Hemoglobin A1C 03/06/2025 025, 09/04/2024, 06/22/2024, Additional history exists COVID-19 Vaccine ( season) 2025 05/15/2024, 07/28/2022, 06/24/2021, Additional history exists Influenza Vaccine (#1) 2025 , 08/16/2023, 04/26/2023, Additional history exists Alcohol/Substance Use Screening 05/15/2025 05/15/2024 Depression Screening 05/15/2025 05/15/2024, 05/15/20 24 SDOH Screening 05/15/2025 05/15/2024 Colonoscopy 09/01/2025 09/01/2015 Colorectal Cancer Screening 09/01/2025 Lipid Panel 11/29/2025 11/29/2024, 03/02/2024, 12/31/2022, Additional history exists Tobacco Screening 12/04/2025 [...] Associated Diagnosis Comments GLUCOSE, WHOLE BLOOD Routine 04/05/2025 8:46 AM EDT URINALYSIS, COMPLETE, WITH REFLEX TO CULTURE Routine 02/13/2025 3:18 PM EDT CHLAMYDIA/N. GONORRHOEAE RNA, TMA, UROGENITAL Routine 02/13/2025 3:07 PM EDT BACTERIAL VAGINOSIS PANEL Routine 02/13/2025 3:07 PM EDT WET PREP, GENITAL Routine 02/13/2025 3:[address] ABDOMEN PELVIS WO CONTRAST Routine 02/13/2025 2:29 PM EDT LIPASE Routine 02/13/2025 1:44 PM EDT COMPREHENSIVE METABOLIC PANEL Routine 02/13/2025 1:44 PM EDT CBC WITH AUTO DIFFERENTIAL Routine 02/13/2025 1:44 PM EDT POCT GLYCATED HEMOGLOBIN, TOTAL Routine 12/04/2024 10:30 AM EDT Type 2 diabetes mellitus with stage 3a chronic kidney disease, with long-term current use of insulin ([facility]) LIPID PANEL, STANDARD Routine 11/29/2024 8:20 AM EDT Mixed hyperlipidemia BI MAMMOGRAM SCREENING TOMOSYNTHESIS BILATERAL Routine 10/24/2023 12:40 PM EDT HM COLONOSCOPY Routine 09/01/2015 from Last 3 Months or Most Recently Relevant to Health Maintenance Results * Glucose, Whole Blood (04/05/2025 8:46 AM EDT) Glucose, Whole Blood 90 60 - 115 mg/dL [facility] Comment:METER #: [id number] 0Testing performed in the Endocrinology Department [address] , [address], [facility]. 04/05/2025 8:46 AM EDT 04/05/2025 8:50 AM EDT us Generic External Data Provider LAB BLOOD ORDERAB LES Final Result [facility] [address] [place] [address] [phone] * (ABNORMAL) Urinalysis, Complete, with Reflex to Culture (02/13/2025 3:18 PM EDT) Color Urine Yellow [facility] Appearance Urine Clear [facility] PH 5.5 5.0 - 9.0 [facility] Glucose Urine UA >=1000(A) Negative mg/dL [facility] Urine Blood Negative Negative [facility] Specific [place] - Urine 1.020 1.005 - 1.025 [facility] Urine Protein Trace Neg-Trace mg/dL [facility] Urine Ketones Negative Negative mg/dL [facility] Nitrite Urine Negative Negative [facility] Leukocyte Esterase Urine Negative Negative [facility] RBC Urine 0-2 0 - 2 /HPF [facility] Urine WBC 0-5 0 - 5 /HPF [facility] Urine Squamous Epithelial Cell 0-2 0 - 2 /HPF [facility] Urine Bacteria None Seen None Seen [facility] Hyaline Casts, Urine 0-2 0 - 2 /LPF [facility] 02/13/2025 3:18 PM EDT 02/13/2025 3:21 PM EDT Narrative [facility] - 02/13/2025 3:56 PM EDT Urine, Clean Catch Generic External Data Provider LAB URINE ORDERAB LES Final Result Performing Organization Address [facility]/ZIP Co de Phone Number [facility] [address] [place] [phone] * (ABNORMAL) Bacterial Vaginosis (02/13/2025 3:07 PM EDT) TRICHOMONAS VAGINALIS DETECTION BY PCR NOT DETECTED Not Detect [facility] BACTERIAL VAGINOSIS DETECTION BY PCR POSITIVE(A) Negative [facility] Comment:The BV organism targ ets of the Xpert Xpress MVP test can becommensal in women; Xpert Xpress MVP positive results forbacterial vaginosis should be considered in conjunction withother clinical and patient information to determine thedisease status. Organisms that are not detected by the XpertXpress MVP test have also been reported to be associatedwith BV and aerobic vaginitis.The Xpert Xpress MVP test performance has not been evaluatedin patients under the age of 14. CELESTINA GROUP DETECTION BY PCR NOT DETECTED Not Detect [facility] Celestina glab krusei PCR NOT DETECTED Not Detect [facility] 02/13/2025 3:07 PM EDT 02/13/2025 3:17 PM EDT Generic External Data Provider LAB MICROBIOLOGY - GENERAL ORDERABLES Final Result Performing Organization Address [facility]/ZIP Co de Phone Number [facility] [address] [place] [phone] * Chlamydia/N. Gonorrhoeae RNA, TMA, Urogenitial (02/13/2025 3:07 PM EDT) CT PCR NOT DETECTED Not Detect. [facility] Comment:A not detected test result does not exclude the possibilityof infection because test results can be affected byimproper specimen collection, concurrent antibiotic therapy,or the number of organisms in the specimen which may bebelow the sensitivity of the test. As with many diagnostictests, results from the Xpert CT/NG assay should beinterpreted in conjunction with other laboratory andclinical data available to the clinician.Xpert CT/NG performance has not been evaluated in patientsless than 14 years of age. The assay should not be used forthe evaluationof suspected sexual abuse or for other medico-legalindications. Additional testing is recommended in anycircumstance when false positive or false negative resultscould lead to adverse medical, social or psychologicalconsequences. NG PCR NOT DETECTED Not Detect. [facility] Comment:A not detected test result does not exclude the possibilityof infection because test results can be affected byimproper specimen collection, concurrent antibiotic therapy,or the number of organisms in the specimen which may bebelow the sensitivity of the test. As with many diagnostictests, results from the Xpert CT/NG assay should beinterpreted in conjunction with other laboratory andclinical data available to the clinician.Xpert CT/NG performance has not been evaluated in patientsless than 14 years of age. The assay should not be used forthe evaluationof suspected sexual abuse or for other medico-legalindications. Additional testing is recommended in anycircumstance when false positive or false negative resultscould lead to adverse medical, social or psychologicalconsequences. 02/13/2025 3:07 PM EDT 02/13/2025 3:17 PM EDT us Generic External Data Provider LAB MICROBIOLOGY - GENERAL ORDERABLES Final Result [facility] [address] [place] [phone] * Wet prep, genital (02/13/2025 3:07 PM EDT) Vaginal Fluid Vaginal structure / Unknown 02/13/2025 3:07 PM EDT 02/13/2025 3:17 PM EDT Comment:Vaginal Narrative [facility] - 02/13/2025 3:26 PM EDT Trichomonas Prep Direct Microscopic Exam Trichomonas Prep No trichomonads or yeast seen Specimen Source: Vaginal us Generic External Data Provider LAB MICROBIOLOGY - GENERAL ORDERABLES Final Result Performing Organization Address City/State/[facility] Co de Phone Number [facility] [address] [place] [phone] * CT Abdomen Pelvis w/o Contrast (02/13/2025 2:29 PM EDT) Anatomical Region Laterality Modality Body, Pelvis, Abdomen Computed T omography 02/13/2025 2:29 PM EDT Narrative 02/13/2025 3:57 PM EDT [address] [address] [address] Scan Report Signed Patient: Sindi Obrien MR#: [id number] : 1950 Acct:[id number] Age/Sex: 74 / F ADM Date: 02/13/25 Loc: .ED Attending Dr: Ordering Physician: Airam Acevedo Date of Service: 02/13/25 Procedure(s): CT abdomen pelvis wo IV con Accession Number(s): [id number] cc: Ventura Shi MD; Airam Acevedo Report Number: [id number]: Total DLP = 505.00 mGy-cm EXAMINATION: CT ABDOMEN AND PELVIS WITHOUT CONTRAST CLINICAL INFORMATION: Hematuria or vaginal bleeding. COMPARISON: September 06, 2022. TECHNIQUE: Multidetector volumetric imaging was performed from the superior aspect of the liver through the pubic symphysis. Sagittal and coronal reformatted images were obtained on the technologist's workstation. This CT examination was performed using dose optimization techniques as appropriate, variously including the following: *Automated exposure control *Adjustment of mA and/or kV according to patient size (this includes techniques or standardized protocols for targeted exams where dose is matched to indication/reason for exam; i.e. extremities or head) *Use of iterative reconstruction technique FINDINGS: Inadequate evaluation of the intra-abdominal organs and vascular structures due to lack of IV contrast. LUNG BASES: Linear attenuation in the lingula and right middle lobe. LIVER, GALLBLADDER, AND BILIARY TREE: [Liver measures 15 cm. There is an intraluminal hyperdensity in the gallbladder. No pericholecystic fluid collection or gallbladder wall thickening. No gallbladder distention. No intrahepatic or extrahepatic biliary ductal dilatation. PANCREAS: No peripancreatic fluid collection. No main pancreatic ductal dilatation. SPLEEN: 9 cm. ADRENAL GLANDS: No nodular lesion. KIDNEYS AND URETERS: No hydronephrosis. No nephrolithiasis. Bilateral renal cortical thinning. Vascular calcifications in the renal hilum bilaterally. BLADDER: Collapsed bladder with urinary bladder wall thickening. GASTROINTESTINAL TRACT: Abundant stool, large intestine. No gross diverticulum. No intestinal obstruction pattern. No pneumatosis intestinalis. No pneumoperitoneum. Terminal ileum is normal. I do not see the appendix, though no pericecal edema pattern. No ascites. Hyperdensity within the stomach lumen. ABDOMINAL WALL: Small fat-containing umbilical hernia. Diastases abdominal rectus muscles. Focal edema pattern with partial calcifications beneath the skin of the left midline lower abdomen wall. LYMPH NODES: Mild prominent retroperitoneum and mesenteric. VASCULAR: Calcified plaques in the coronary arteries, aorta, iliac arteries, splenic artery and mesenteric arteries. No aneurysm in the abdominal aorta. Calcified seen in the femoral arteries. PELVIC VISCERA: Inadequate evaluation. Absent uterus. OSSEOUS STRUCTURES: Mild degenerative changes in the coxofemoral joints and sacroiliac joints. Osteopenia versus osteoporosis. Multilevel thoracolumbar spondylosis. No acute fracture or gross listhesis. CT/CT abdomen pelvis wo IV con IMPRESSION: No hydronephrosis or nephrolithiasis. Consider medical renal disease. Thickened urinary bladder wall. Inflammatory versus infectious processes should be considered in the correct clinical settings. Neoplasm cannot be excluded. Coronary artery disease and atherosclerosis disease. Probable cholelithiasis. Hyperdensity within the stomach lumen. Fleischner guidelines were followed. Electronically signed by: Hakeem Kumar MD 02/13/2025 03:53 PM EDT Dictated By: Hakeem Bustos MD Signed By: <Electronically signed by Hakeem Ochoa MD in OV> 02/13/25 1553 DD/ 1429 TD/TT: 02/13/25 1538 Dyed Raw Stock Blower Feeder: Procedure Note Donotuseinterpreter, Image - 02/13/[address] [place] [address] [address] Scan Report Signed Patient: Sindi Obrien#: M [id number] : 1950cct:[id number] Age/Sex: 74 / FADM Date: 02/13/25 Loc: HO.ED Attending Dr: Ordering Physician: Airam Acevedo Date of Service: 02/13/25 Procedure(s): CT abdomen pelvis wo IV con Accession Number(s): [id number] cc: Ventura Shi MD; Airam Acevedo Report Number: [id number]: Total DLP = 505.00 mGy-cm EXAMINATION: CT ABDOMEN AND PELVIS WITHOUT CONTRAST CLINICAL INFORMATION: Hematuria or vaginal bleeding. COMPARISON: September 06, 2022. TECHNIQUE: Multidetector volumetric imaging was performed from the superior aspect of the liver through the pubic symphysis. Sagittal and coronal reformatted images were obtained on the technologist's workstation. This CT examination was performed using dose optimization techniques as appropriate, variously including the following: *Automated exposure control *Adjustment of mA and/or kV according to patient size (this includes techniques or standardized protocols for targeted exams where dose is matched to indication/reason for exam; i.e. extremities or head) *Use of iterative reconstruction technique FINDINGS: Inadequate evaluation of the intra-abdominal organs and vascular structures due to lack of IV contrast. LUNG BASES: Linear attenuation in the lingula and right middle lobe. LIVER, GALLBLADDER, AND BILIARY TREE: [Liver measures 15 cm. There is an intraluminal hyperdensity in the gallbladder. No pericholecystic fluid collection or gallbladder wall thickening. No gallbladder distention. No intrahepatic or extrahepatic biliary ductal dilatation. PANCREAS: No peripancreatic fluid collection. No main pancreatic ductal dilatation. SPLEEN: 9 cm. ADRENAL GLANDS: No nodular lesion. KIDNEYS AND URETERS: No hydronephrosis. No nephrolithiasis. Bilateral renal cortical thinning. Vascular calcifications in the renal hilum bilaterally. BLADDER: Collapsed bladder with urinary bladder wall thickening. GASTROINTESTINAL TRACT: Abundant stool, large intestine. No gross diverticulum. No intestinal obstruction pattern. No pneumatosis intestinalis. No pneumoperitoneum. Terminal ileum is normal. I do not see the appendix, though no pericecal edema pattern. No ascites. Hyperdensity within the stomach lumen. ABDOMINAL WALL: Small fat-containing umbilical hernia. Diastases abdominal rectus muscles. Focal edema pattern with partial calcifications beneath the skin of the left midline lower abdomen wall. LYMPH NODES: Mild prominent retroperitoneum and mesenteric. VASCULAR: Calcified plaques in the coronary arteries, aorta, iliac arteries, splenic artery and mesenteric arteries. No aneurysm in the abdominal aorta. Calcified seen in the femoral arteries. PELVIC VISCERA: Inadequate evaluation. Absent uterus. OSSEOUS STRUCTURES: Mild degenerative changes in the coxofemoral joints and sacroiliac joints. Osteopenia versus osteoporosis. Multilevel thoracolumbar spondylosis. No acute fracture or gross listhesis. CT/CT abdomen pelvis wo IV con IMPRESSION: No hydronephrosis or nephrolithiasis. Consider medical renal disease. Thickened urinary bladder wall. Inflammatory versus infectious processes should be considered in the correct clinical settings. Neoplasm cannot be excluded. Coronary artery disease and atherosclerosis disease. Probable cholelithiasis. Hyperdensity within the stomach lumen. Fleischner guidelines were followed. Electronically signed by: Hakeem Kumar MD 02/13/2025 03:53 PM EDT Dictated By: Hakeem Bustos MD Signed By: <Electronically signed by Hakeem Ochoa MDin OV> 02/13/25 1553 DD/ 1429 TD/TT: 02/13/25 1538 Dyed Raw Stock Blower Feeder: us [facility] External Provider IMG CT PROCEDURES Final Result * (ABNORMAL) CBC auto differential (02/13/2025 1:44 PM EDT) White Blood Count 6.1 4.8 - 10.8 X10*3/uL [facility] Red Blood Count 3.59(L) 4.20 - 5.50 X10*6/uL [facility] Hemoglobin 11.3(L) 12.0 - 16.0 g/dl [facility] Hematocrit 33.9(L) 37.0 - 47.0 % [facility] Mean Corpuscular Volume 94.4 80.0 - 98.0 fL [facility] Mean Corpuscular Hemoglobin 31.5 27.0 - 33.0 pg [facility] Mean Corpuscular HGB Conc 33.3 31.0 - 35.0 g/dl [facility] Red Cell Distribution Width 11.9 11.0 - 16.0 % [facility] Platelet Count 184 160 - 400 X10*3/uL [facility] Mean Platelet Volume 10.2 9.4 - 12.3 fL [facility] Neutrophils Percent Auto 65.4 45 - 73 % [facility] Imm Gran Pct Auto 0.2 0.0 - 0.4 % [facility] Lymphocytes Percent Auto 19.8(L) 20 - 40 % [facility] Monocytes Percent Auto 7.8 2 - 11 % [facility] Eosinophils Percent Auto 6.3(H) 0 - 4 % [facility] Basophils Percent Auto 0.5 0 - 2 % [facility] NRBC Pct Auto 0.0 0.0 - 0.2 /100WBC [facility] Neutrophils Absolute Auto 4.0 2.0 - 8.3 x10*3/uL [facility] Imm Gran Abs Auto 0.01 0.00 - 0.03 X10*3/uL [facility] Lymphocytes Absolute Auto 1.2 1.2 - 4.9 X10*3/uL [facility] Monocytes Absolute Auto 0.5 0.1 - 1.2 X10*3/uL [facility] Eosinophils Absolute Auto 0.4 0.0 - 0.4 X10*3/uL [facility] Basophils Absolute Auto 0.0 0.0 - 0.2 X10*3/uL [facility] NRBC Abs Auto 0.000 0.0 - 0.012 X10*3/uL [facility] 02/13/2025 1:44 PM EDT 02/13/2025 1:48 PM EDT Generic External Data Provider LAB BLOOD ORDERAB LES Final Result Performing Organization Address City/[facility]/ZIP Co de Phone Number [facility] [address] [place] [phone] * Lipase (02/13/2025 1:44 PM EDT) Lipase 28 8 - 78 U/L [facility] 02/13/2025 1:44 PM EDT 02/13/2025 1:48 PM EDT [facility] External Data Provider LAB BLOOD ORDERAB LES Final Result Performing Organization Address [facility] de Phone Number [facility] [address] [place] [phone] * (ABNORMAL) Comprehensive Metabolic Panel (02/13/2025 1:44 PM EDT) Sodium 142 135 - 145 mmol/L [facility] Potassium 5.0 3.3 - 5.1 mmol/L [facility] Chloride 108 96 - 108 mmol/L [facility] Carbon Dioxide 28 22 - 29 mmol/L [facility] Anion Gap 11(L) 12 - 20 [facility] Urea Nitrogen (BUN) 35(H) 9 - 16 mg/dL [facility] Creatinine, Serum 1.72(H) 0.5 - 1.4 mg/dL [facility] Creatinine Clr Calc Pharmacy 21.4 [facility] Comment:Provided height and weight: 134.62 cm,72.4 kg.eGFR (calculated from the MDRD study equation) and eCrCl(calculated from the Cockcroft-Gault equation) are based ondifferent parameters and may not yield comparable results.If eCrCl result is absurd, please check patient'sheight/weight. Estimated Glomerular Filt Rate 29 [facility] Comment:Chronic Kidney Disea se: Estimated GFR < 60 mL/min/1.31k0Gaevlq Kidney Disease: Estimated GFR < 15 mL/min/1.73m2 Glucose 194(H) 60 - 115 mg/dL [facility] Calcium 9.0 8.4 - 10.2 mg/dL [facility] Bilirubin, Total 0.3 0.0 - 1.0 mg/dL [facility] Aspartate Amino Transferase 23 5 - 31 U/L [facility] Alanine Aminotransferase 32(H) 0 - 31 U/L [facility] Total Protein 7.1 6.5 - 8.0 g/dL [facility] Albumin Level 4.0 3.5 - 5.0 g/dL [facility] Alkaline Phosphatase 145(H) 39 - 117 U/L [facility] 02/13/2025 1:44 PM EDT 02/13/2025 1:48 PM EDT us Generic External Data Provider LAB BLOOD ORDERAB LES Final Result [facility] [address] [place] [phone] * (ABNORMAL) POCT HGB A1C (12/04/2024 10:30 AM EDT) Pathologist [facility] Hemoglobin A1C 8.1(A) 4.0 - 6.0 % QC Media Lot # [id number] Lot# Expiration Date Blood 12/04/2024 10:3 0 AM EDT us Ventura Maldonado MD POINT OF CARE TEST EN TER/EDIT ORDERABLES Final Result * Lipid Panel, Standard (11/29/2024 8:20 AM EDT) Triglycerides 56 <150 mg/dL [facility] Comment:Desirable Triglyceri de: less than 150 mg/dLBorderline High Triglyceride 150-199 mg/dLHigh Triglyceride: 200-499 mg/dLVery High Triglyceride: greater than or equal to 5OO mg/dL Cholesterol 131 <200 mg/dL [facility] Comment:Desirable Cholestero l: less than 200 mg/dLBorderline High Cholesterol: 200-239 mg/dLHigh Cholesterol: greater than 239 mg/dL LDL Cholesterol Calculated 54 <100 mg/dL [facility] Comment:Desirable LDL: less than 100 mg/dLNear Optimal/Above Optimal LDL: 110- 129 mg/dLBorderline High LDL: 130-159 mg/dLHigh LDL: 160-189 mg/dLVery High LDL: greater than or equal to 190 mg/dL HDL Cholesterol 66 >40 mg/dL [facility] Comment:Desirable HDL: great er than 40 mg/dL Note: This HDL assay may give artificially low results in patients with liver disease. Blood Venous blood specimen / Unknown 11/29/2024 8:20 AM EDT 11/29/2024 11:12 AM EDT Ventura Maldonado MD LAB BLOOD ORDERABLES Final Result Performing Organization Address City/State/[facility] Co de Phone Number [facility] [address] [place] [phone] * BI Mammogram Screening Tomosynthesis Bilateral (10/24/2023 12:40 PM EDT) Anatomical Region Laterality Modality Breast Bilateral Mammography 10/24/2023 12:4 0 PM EDT Narrative 11/06/2023 3:28 PM EDT [facility] [address] [place] [address] Mammography Report Signed Patient: Sindi Obrien MR#: [id number] : 1950 Acct:[id number] Age/Sex: 72 / F ADM Date: 10/24/23 Loc: [facility] Attending Dr: Ventura Shi MD Ordering Physician: Ventura Shi MD Resu lts: 2Benign Findings Date of Service: 10/24/23 Follow Up: 1 Year From Orig inal Mammogram Procedure(s): MM tomosynthesis screening BI Accession Number(s): [id number] cc: Ventura Shi MD EXAMINATION: MM SCREENING [...] in OV> 11/06/23 1525 DD/ 1240 TD/TT: Dyed Raw Stock Blower Feeder: Procedure Note Donotuseinterpreter, Image - 11/06/2023 [facility] [address] [place], [place] [address] Mammography Report Signed Patient: Sindi Obrien#: [id number] : 2Acct:[id number] Age/Sex: 72 / FADM Date: 10/24/23 Loc: SAJAN Attending Dr: Ventura Shi MD Ordering Physician: Ventura Shi MDResu lts: 2Benign Findings Date of Service: 10/24/23Follow Up: 1 Year From Orig inal Mammogram Procedure(s): MM tomosynthesis screening BI Accession Number(s): [id number] cc: Ventura Shi MD EXAMINATION: MM SCREENING [...] in OV> 11/06/23 1525 DD/ 1240 TD/TT: Dyed Raw Stock Blower Feeder: Ventura Maldonado MD IMG BI PROCEDURES Ortiz cesar Result - Final * Colonoscopy (09/01/2015) Colonoscopy Normal Normal 09/01/2015 Brittany Patel - 09/01/2015 11:54 AM EST Recommended 10 year follow up Historical Provider HEALTH MAINTENANCE Edited Result - Final from Last 3 Months or Most Recently Relevant to Health Maintenance Insurance [facility] [employer]M OPT[employer] (O D-SNP) [place] [employer] [id number] Care Teams Overhead Irrigator Relationship Specialty Start Date End Date Ventura Tavares MD [address] [place] [phone] PCP - General Internal Medicine 03/11/14 Garrison Silverio MD [address] [place] [address] [address] [place] [phone] Nephrology 11/29/24
--- OUTSIDE RECORDS SUMMARY | 2025-04-05 09:13 | XMS_ITS | Encounter Summary ---
Author Organization [employer] Address [address] [facility] 7t [place] [address] Care Team Providers Care Senior Structural Engineer Name Role Phone Ventura Tavares MD Primary Care Provide r Garrison Silverio MD Unavailable Reason for Visit * Reason Onset Date Comments ER Follow-up 10/25/2022 Encounter Details Date Type Department Care Team ([facility] st Contact Info) Description 10/25/[address] [facility] MED[facility] [address] [place], [place] [phone] Ventura Tavares MD [address] [place], [place] [phone] ER Follow-up Social History Tobacco Use Types [...] to report ED visit on 10/25/22 at [facility]. Diagnosed with fall. Patient advised will forward to team nurse for follow up. documented in this encounter Plan of Treatment Not on file documented as of this encounter Visit Diagnoses Not on filedocumented in this encounter Care Teams Senior Structural Engineer Relationship Specialty Start Date End Date Ventura Tavares MD [address] [place] [phone] PCP - General Internal Medicine 03/11/14 Garrison Silverio MD [address] [place] [phone] Nephrology 11/29/24 documented as of this encounter
--- OUTSIDE RECORDS SUMMARY | 2025-04-05 09:13 | XMS_ITS | Encounter Summary ---
Author Organization [employer] Address [address] [place] [address] 7t [place] [address] Care Team Providers Care Cryogenics Engineer Name Role Phone Ventura Tavares MD Primary Care Provide r Garrison Silverio MD Unavailable Encounter Details Date Type Department Care Team ([facility] st Contact Info) Description 07/09/2022 Orders Only [facility] [address] [place], [place] [phone] Ventura Tavares MD [address] [place], [place] [phone] Social History Tobacco Use Types Packs/Day Years [...] on file documented as of this encounter Procedures Procedure [...] (09/06/2022 10:34 AM EST) Color Urine Yellow [facility] Appearance Urine Clear [facility] PH 7.5 5.0 - 9.0 [facility] Glucose Urine UA 100(A) Negative mg/dL [facility] Urine Blood Negative Negative [facility] Specific [place] - Urine 1.020 1.005 - 1.025 [facility] Urine Protein 100 (2+)(A) Neg-Trace mg/dL [facility] Urine Ketones Negative Negative mg/dL [facility] Nitrite Urine Negative Negative [facility] Leukocyte Esterase Urine Negative Negative [facility] RBC Urine 0-2 0 - 2 /HPF [facility] Urine WBC 0-5 0 - 5 /HPF [facility] Urine Squamous Epithelial Cell 6-10 0 - 2 /HPF [facility] Urine Bacteria None Seen None Seen [facility] Hyaline Casts, Urine 0-2 0 - 2 /LPF [facility] 09/06/2022 10:3 4 AM EST 09/06/2022 10:38 AM EST Narrative [facility] - 09/06/2022 10:51 AM EST [id number], Clean Catch us [facility] External Provider LAB URI NE ORDERABLES Final Result [facility] [address] [place] [address] [phone] * (ABNORMAL) Urinalysis with reflex microscopic (09/06/2022 10:34 AM EST) Color Urine Yellow [facility] Appearance Urine Clear [facility] PH 7.5 5.0 - 9.0 [facility] Glucose Urine UA 100(A) Negative mg/dL [facility] Urine Blood Negative Negative [facility] Specific [place] - Urine 1.020 1.005 - 1.025 [facility] Urine Protein 100 (2+)(A) Neg-Trace mg/dL [facility] Urine Ketones Negative Negative mg/dL [facility] Nitrite Urine Negative Negative [facility] Leukocyte Esterase Urine Negative Negative [facility] 09/06/2022 10:3 4 AM EST 09/06/2022 10:38 AM EST Narrative [facility] - 09/06/2022 10:45 AM EST [id number], Clean Catch [facility] External Provider LAB URI NE ORDERABLES Final Result Performing Organization Address [facility] de Phone Number [facility] [address] [place] [address] [phone] * (ABNORMAL) Comprehensive Metabolic Panel (09/06/2022 10:27 AM EST) Sodium 139 135 - 145 mmol/L [facility] Potassium 5.1 3.3 - 5.1 mmol/L [facility] Chloride 103 96 - 108 mmol/L [facility] Carbon Dioxide 29 22 - 29 mmol/L [facility] Anion Gap 12 12 - 20 [facility] Urea Nitrogen (BUN) 36(H) 9 - 16 mg/dL [facility] Creatinine, Serum 1.47(H) 0.5 - 1.4 mg/dL [facility] Creatinine Clr Calc Pharmacy 27.5 [facility] Comment:Provided height and weight: 134.62 cm,78.018 kg.eGFR (calculated from the MDRD study equation) and eCrCl(calculated from the Cockcroft-Gault equation) are based ondifferent parameters and may not yield comparable results.If eCrCl result is absurd, please check patient'sheight/weight. Estimated Glomerular Filt Rate 35 [facility] Comment:NOTE: For -Am erican individuals, multiply the result by 1.210.Chronic Kidney Disease: Estimated GFR < 60 mL/min/[id number] Kidney Disease: Estimated GFR < 15 mL/min/1.73m2 Glucose 190(H) 60 - 115 mg/dL [facility] Calcium 9.4 8.4 - 10.2 mg/dL [facility] Bilirubin, Total 0.6 0.0 - 1.0 mg/dL [facility] Aspartate Amino Transferase 18 5 - 31 U/L [facility] Alanine Aminotransferase 16 0 - 31 U/L [facility] Total Protein 6.9 6.5 - 8.0 g/dL [facility] Albumin Level 4.0 3.5 - 5.0 g/dL [facility] Alkaline Phosphatase 105 39 - 117 U/L [facility] 09/06/2022 10:2 7 AM EST 09/06/2022 10:31 AM EST us [facility] External Provider LAB BLO OD ORDERABLES Final Result [facility] [address] [place] [phone] * (ABNORMAL) CBC auto differential (09/06/2022 10:27 AM EST) White Blood Count 6.5 4.8 - 10.8 X10*3/uL [facility] Red Blood Count 3.99(L) 4.20 - 5.50 X10*6/uL [facility] Hemoglobin 12.0 12.0 - 16.0 g/dl [facility] Hematocrit 36.2(L) 37.0 - 47.0 % [facility] Mean Corpuscular Volume 90.7 80.0 - 98.0 fL [facility] Mean Corpuscular Hemoglobin 30.1 27.0 - 33.0 pg [facility] Mean Corpuscular HGB Conc 33.1 31.0 - 35.0 g/dl [facility] Red Cell Distribution Width 11.6 11.0 - 16.0 % [facility] Platelet Count 194 160 - 400 X10*3/uL [facility] Mean Platelet Volume 10.6 9.4 - 12.3 fL [facility] Neutrophils Percent Auto 64.0 45 - 73 % [facility] Imm Gran Pct Auto 0.3 0.0 - 0.4 % [facility] Lymphocytes Percent Auto 22.6 20 - 40 % [facility] Monocytes Percent Auto 7.9 2 - 11 % [facility] Eosinophils Percent Auto 4.7(H) 0 - 4 % [facility] Basophils Percent Auto 0.5 0 - 2 % [facility] NRBC Pct Auto 0.0 0.0 - 0.2 /100WBC [facility] Neutrophils Absolute Auto 4.1 2.0 - 8.3 x10*3/uL [facility] Imm Gran Abs Auto 0.02 0.00 - 0.03 X10*3/uL [facility] Lymphocytes Absolute Auto 1.5 1.2 - 4.9 X10*3/uL [facility] Monocytes Absolute Auto 0.5 0.1 - 1.2 X10*3/uL [facility] Eosinophils Absolute Auto 0.3 0.0 - 0.4 X10*3/uL [facility] Basophils Absolute Auto 0.0 0.0 - 0.2 X10*3/uL [facility] NRBC Abs Auto 0.000 0.0 - 0.012 X10*3/uL [facility] 09/06/2022 10:2 7 AM EST 09/06/2022 10:31 AM EST us [facility] External Provider LAB BLO OD ORDERABLES Final Result Performing Organization Address [facility]/ZIP Co de Phone Number [facility] [address] [place] [phone] * Calcium (08/03/2022 8:15 AM EST) Calcium 9.2 8.4 - 10.2 mg/dL [facility] 08/03/2022 8:15 AM EST 08/03/2022 10:30 AM EST [facility] External Provider LAB BLO OD ORDERABLES Final Result Performing Organization Address [facility] de Phone Number [facility] [address] [place] [phone] * (ABNORMAL) Creatinine, Serum (08/03/2022 8:15 AM EST) Creatinine, Serum 1.54(H) 0.5 - 1.4 mg/dL [facility] Estimated Glomerular Filt Rate 33 [facility] Comment:NOTE: For -Am erican individuals, multiply the result by 1.210.Chronic Kidney Disease: Estimated GFR < 60 mL/min/1.17z0Actzcm Kidney Disease: Estimated GFR < 15 mL/min/1.73m2 08/03/2022 8:15 AM EST 08/03/2022 10:30 AM EST [facility] External Provider LAB BLO OD ORDERABLES Final Result Performing Organization Address [facility] Co de Phone Number [facility] [address] [place] [phone] * (ABNORMAL) BUN (Blood Urea Nitrogen) (08/03/2022 8:15 AM EST) Urea Nitrogen (BUN) 39(H) 9 - 16 mg/dL [facility] 08/03/2022 8:15 AM EST 08/03/2022 10:30 AM EST [facility] External Provider LAB BLO OD ORDERABLES Final Result Performing Organization Address [facility] Co de Phone Number [facility] [address] [place] [phone] * (ABNORMAL) Electrolyte Panel (08/03/2022 8:15 AM EST) Sodium 140 135 - 145 mmol/L [facility] Potassium 5.5(H) 3.3 - 5.1 mmol/L [facility] Chloride 106 96 - 108 mmol/L [facility] Carbon Dioxide 28 22 - 29 mmol/L [facility] Anion Gap 12 12 - 20 [facility] 08/03/2022 8:15 AM EST 08/03/2022 10:30 AM EST [facility] External Provider LAB BLO OD ORDERABLES Final Result Performing Organization Address [facility] de Phone Number [facility] [address] [place] [address] [phone] documented in this encounter Visit Diagnoses Not on filedocumented in this encounter Care Teams Cryogenics Engineer Relationship Specialty Start Date End Date Ventura Tavares MD [address] [place] [phone] PCP - General Internal Medicine 03/11/14 Garrison Silverio MD [address] [place] [address] Nephrology 11/29/24 documented as of this encounter
--- OUTSIDE RECORDS SUMMARY | 2025-04-05 09:13 | XMS_ITS | Encounter Summary ---
Author Organization [employer] Address [address] [facility] [address] 7[address] [place] [address] Care Team Providers Care Eligibility Technician Name Role Phone Ventura Tavares MD Primary Care Provide r Garrison Silverio MD Unavailable Encounter Details Date Type Department Care Team (Late st Contact Info) Description 04/07/[address] [facility] MEDICINE [address] [place] [address] Ventura Tavares MD [address] [place], [place] [phone] Social History Tobacco Use Types Packs/Day Years [...] documented as of this encounter Care Teams Eligibility Technician Relationship Specialty Start Date End Date Ventura Tavares MD [address] [place] [phone] PCP - General Internal Medicine 03/11/14 Garrison Silverio MD [address] [place] [address] [address] [place] [address] Nephrology 11/29/24 documented as of this encounter
--- OUTSIDE RECORDS SUMMARY | 2025-04-05 09:13 | XMS_ITS | Encounter Summary ---
Author Organization [employer] Address [address] [facility] [address]t [place] [address] Care Team Providers Care Refrigerator Repair Technician Name Role Phone Ventura Tavares MD Primary Care Provide r Garrison Silverio MD Unavailable Reason for Visit * Reason Comments Med Refill Encounter Details Date Type Department Care Team ([facility] st Contact Info) Description 11/20/2024 Refill [facility] [address] [place] [address] Ventura Tavares MD [address] [place] [address] Pain Social History Tobacco Use Types Packs/Day [...] documented as of this encounter Care Teams Refrigerator Repair Technician Relationship Specialty Start Date End Date Ventura Tavares MD [address] [place] [phone] PCP - General Internal Medicine 03/11/14 Garrison Silverio MD [address] [place] [address] Drive [address] [place] [address] Nephrology 11/29/24 documented as of this encounter
--- OUTSIDE RECORDS SUMMARY | 2025-04-05 09:13 | XMS_ITS | Encounter Summary ---
Author Organization [employer] Address [address] [address] 7[address] [place] [address] Care Team Providers Care Bag Valver Name Role Phone Ventura Tavares MD Primary Care Provide r Garrison Silverio MD Unavailable Encounter Details Date Type Department Care Team (Late st Contact Info) Description 07/05/2023 Telephone [facility] MED[facility]INE [address] [place] [address] Ventura Tavares MD [address] [place], [place] [phone] Social History Tobacco Use Types Packs/Day Years Used Date Smoking Tobacco: Never Passive Smoke Exposure: Never Smokeless Tobacco: Never Alcohol Use Standard Drinks/Week Comments Never 0 (1 standard drink = 0.6 oz pur e alcohol) Depression Answer Date Recorded Patient Health Questionnaire-9 Score 12 12/21/2022 Housing Stability Answer Date Recorded What is your housing situation today? I have alishatammie hodges 05/11/[address] you [...] 2:11 PM EST Tc from [employer] (SENIOR LANDSCAPE ARCHITECT) with [employer] calling to advise provider, a home assessment was done on behalf of CCAand pt A1C came out to be 10.8 Any questions, contact [employer] at [phone] documented in this encounter Plan of Treatment Not on file documented as of this encounter Visit Diagnoses Not on filedocumented in this encounter Additional Health Concerns Assessment Noted Time PHQ-9 Depression Total Score: 12 023 10:55 AM EDT documented as of this encounter Care Teams Bag Valver Relationship Specialty Start Date End Date Ventura Tavares MD [address] [place] [phone] PCP - General Internal Medicine 03/11/14 Garrison Silverio MD [address] [place] [phone] Nephrology 11/29/24 documented as of this encounter
--- OUTSIDE RECORDS SUMMARY | 2025-04-05 09:13 | XMS_ITS | Encounter Summary ---
Author Organization [employer] Address [address] [facility] 7t [place] [address] Care Team Providers Care Manager Film Name Role Phone Ventura Tavares MD Primary Care Provide r Garrison Silverio MD Unavailable Encounter Details Date Type Department Care Team (Late st Contact Info) Description 12/01/2022 Abstract [facility] [address] [place] [address] Ventura Tavares MD [address] [place], [place] [phone] Social History Tobacco Use Types Packs/Day Years [...] Procedure Name Priority Date/Time Associated Diagnosis Comments COLONOSCOPY Routine 09/01/2015 documented in this encounter Results * Colonoscopy (09/01/2015) Colonoscopy Normal Normal 09/01/2015 Narrative Brittany Galarza - 09/01/2015 11:54 AM EST Recommended 10 year follow up us Historical Provider HEALTH MAINTENANCE Edited Result - Final documented in this encounter Visit Diagnoses Not on filedocumented in this encounter Care Teams Manager Film Relationship Specialty Start Date End Date Ventura Tavares MD [address] [place] [phone] PCP - General Internal Medicine 03/11/14 Garrison Silverio MD [address] [place] [address] [address] [place] [address] Nephrology 11/29/24 documented as of this encounter
--- OUTSIDE RECORDS SUMMARY | 2025-04-05 09:13 | XMS_ITS | Encounter Summary ---
Author Organization [employer] Address [address] [place] [address] Care Team Providers Care Boat Dock Operator Name Role Phone Ventura Tavares MD Primary Care Provide r Garrison Silverio MD Unavailable Encounter Details Date Type Department Care Team (Late st Contact Info) Description 03/02/2023 Orders Only [facility] [address] [place] [address] Terra Hannon LPN Social History Tobacco Use [...] documented as of this encounter Care Teams Boat Dock Operator Relationship Specialty Start Date End Date Ventura Tavares MD [address] [place] [phone] PCP - General Internal Medicine 03/11/14 Garrison Silverio MD [address] [place] [address] [place] [address] Nephrology 11/29/24 documented as of this encounter
--- OUTSIDE RECORDS SUMMARY | 2025-04-05 09:13 | XMS_ITS | Encounter Summary ---
Author Organization [employer] Address 75 [facility] 7t [place] [address] Care Team Providers Care Train Braker Name Role Phone Ventura Tavares MD Primary Care Provide r Garrison Silverio MD Unavailable Encounter Details Date Type Department Care Team (Late st Contact Info) Description 04/05/2025 Orders Only GENERIC EXTERNAL DATA [...] WHOLE BLOOD Routine 04/05/2025 8:46 AM EDT documented in this encounter Results * Glucose, Whole Blood (04/05/2025 8:46 AM EDT) Glucose, Whole Blood 90 60 - 115 mg/dL [facility] Comment:METER #: [id number] 0Testing performed in the Endocrinology Department [address] , [address], [facility]. 04/05/2025 8:46 AM EDT 04/05/2025 8:50 AM EDT us Generic External Data Provider LAB BLOOD ORDERAB LES Final Result [facility] [address] [place] [address] [phone] documented in this encounter Visit Diagnoses Not on filedocumented in this encounter Additional Health Concerns Assessment Noted Time PHQ-9 Depression Total Score: 0 05/15/20 24 10:57 AM EDT documented as of this encounter Care Teams Train Braker Relationship Specialty Start Date End Date Ventura Tavares MD [address] [place] [phone] PCP - General Internal Medicine 03/11/14 Garrison Silverio MD [address] [place] [address] Drive [address] [place] [address] Nephrology 11/29/24 documented as of this encounter
--- OUTSIDE RECORDS SUMMARY | 2025-04-05 09:13 | XMS_ITS | Encounter Summary ---
Author Organization [employer] Address 75 [facility] 7t [place] [address] Care Team Providers Care Churn Driller Name Role Phone Ventura Tavares MD Primary Care Provide r Garrison Silverio MD Unavailable Encounter Details Date Type Department Care Team (Late st Contact Info) Description 09/20/2022 Orders Only [facility] [address] [place] [address] Terra Hannon LPN Social History Tobacco Use [...] on filedocumented in this encounter Care Teams Churn Driller Relationship Specialty Start Date End Date Ventura Tavares MD [address] [place] [phone] PCP - General Internal Medicine 03/11/14 Garrison Silverio MD [address] [place] [address] Drive [address] [place] [address] Nephrology 11/29/24 documented as of this encounter
--- OUTSIDE RECORDS SUMMARY | 2025-04-05 09:13 | XMS_ITS | Encounter Summary ---
Author Organization [employer] Address [address] [facility] [address] [place] [address] Care Team Providers Care Proposal Review Analyst Name Role Phone Ventura Tavares MD Primary Care Provide r Garrison Silverio MD Unavailable Encounter Details Date Type Department Care Team (Late st Contact Info) Description 01/04/2023 Orders Only [facility] [address] [place] [address] Aime Bland MD [address] [place], [place] [phone] Dyspnea, unspecified type (Primary Dx) Social History [...] as of this encounter Plan of Treatment Scheduled Orders Name Type Priority Associated Diagnoses [...] Laterality Modality Chest Radiographic Ирина ging 01/04/2023 2:2 0 PM EDT Narrative 01/04/2023 2:57 PM EDT [address] [address] XRay Report Signed Patient: Sindi Obrien MR#: [id number] : 1950 Acct:[id number] Age/Sex: 72 / F ADM Date: 01/04/23 Loc: HO.HHCX Attending Dr: Aime Bland MD Ordering Physician: AIME BLAND MD Date of Service: 01/04/23 Procedure(s): XR chest 2V Accession Number(s): [id number] cc: AIME BLAND MD EXAMINATION: XR CHEST [...] in OV> 01/04/23 1454 DD/ 1420 TD/TT: Pre Kindergarten Teacher: HERSON Procedure Note Donotuseinterpreter, Image - 01/19/[address] [address] XRay Report Signed Patient: Sindi ObrienMR#: M [id number] : 1950cct:[id number] Age/Sex: 72 / FADM Date: 01/04/23 Loc: HO.HHCX Attending Dr: Aime Bland MD Ordering Physician: AIME BLAND MD Date of Service: 01/04/23 Procedure(s): XR chest 2V Accession Number(s): [id number] cc: AIME BLAND MD EXAMINATION: XR CHEST [...] in OV> 01/04/23 1454 DD/ 1420 TD/TT: Pre Kindergarten Teacher: HERSON [facility] External Provider IMG XR PROCEDURES Final Result documented in this encounter Visit Diagnoses Diagnosis Dyspnea, unspecified type- Primary documented in this encounter Additional Health Concerns Assessment Noted Time PHQ-9 Depression Total Score: 12 023 10:55 AM EDT documented as of this encounter Care Teams Proposal Review Analyst Relationship Specialty Start Date End Date Ventura Tavares MD [address] [place] [address] PCP - General Internal Medicine 03/11/14 Garrison Silverio MD [address] [place] [address] Drive [address] [place] [address] Nephrology 11/29/24 documented as of this encounter
== END 2025-04-05 09:09 | disposition home or self-care (01) ==
LOC: HO.ENCR 08:36
PROVIDERS: PCP Internal Medicine; Visit Provider Physician Assistant
DX: E11.65 Type 2 diabetes mellitus with hyperglycemia (principal); I10 Essential (primary) hypertension

== ENCOUNTER → 2025-04-05 08:35 | Outpatient (BNVA) | payer OTHER, SELFPAY | PROVIDERS: PCP Internal Medicine; Visit Provider Physician Assistant | DX: E11.65 Type 2 diabetes mellitus with hyperglycemia (principal); E11.29 Type 2 diabetes mellitus with other diabetic kidney complication; R80.9 Proteinuria, unspecified; I12.9 Hypertensive chronic kidney disease with stage 1 through stage 4 chronic kidney disease, or unspecified chronic kidney disease; N18.9 Chronic kidney disease, unspecified; Z79.4 Long term (current) use of insulin | CPT/HCPCS: 82947; 99212 ==

== ENCOUNTER 2025-04-16 08:55 | Outpatient (REF) | payer OTHER, SELFPAY ==
--- OUTSIDE RECORDS SUMMARY | 2025-04-16 10:11 | XMS_ITS | Encounter Summary ---
Author Organization [employer] Address 75 [facility] 7t [place] [address] Care Team Providers Care Train System Operator Name Role Phone Ventura Tavares MD Primary Care Provide r Garrison Silverio MD Unavailable Encounter Details Date Type Department Care Team (Late st Contact Info) Description 12/01/2022 Abstract [facility] [address] [place] [address] Ventura Tavares MD [address] [place], [place] [phone] Social History Tobacco Use Types Packs/Day Years [...] on filedocumented in this encounter Care Teams Train System Operator Relationship Specialty Start Date End Date Ventura Tavares MD [address] [place] [address] PCP - General Internal Medicine 03/11/14 Garrison Silverio MD [address] [place] [address] [address] [place] [address] Nephrology 11/29/24 documented as of this encounter
--- OUTSIDE RECORDS SUMMARY | 2025-04-16 10:11 | XMS_ITS | Encounter Summary ---
Author Organization [employer] Address 75 [facility] 7t [place] [address] Care Team Providers Care Air Bag Curer Name Role Phone Ventura Tavares MD Primary Care Provide r Garrison Silverio MD Unavailable Reason for Visit * Reason Comments Med Refill Encounter Details Date Type Department Care Team (Late st Contact Info) Description 02/24/2023 Refill [facility] [address] [place] [address] Ventura Tavares MD 230 [place] [address] Pain Social History Tobacco Use Types Packs/Day [...] documented as of this encounter Care Teams Air Bag Curer Relationship Specialty Start Date End Date Ventura Tavares MD [address] [place] [address] PCP - General Internal Medicine 03/11/14 Garrison Silverio MD [address] [place] [address] Drive [address] [place] [address] Nephrology 11/29/24 documented as of this encounter
--- OUTSIDE RECORDS SUMMARY | 2025-04-16 10:11 | XMS_ITS | Encounter Summary ---
Author Organization [employer] Address 75 [facility] 7t [place] [address] Care Team Providers Care Lorry Weigher Name Role Phone Ventura Tavares MD Primary Care Provide r Garrison Silverio MD Unavailable Reason for Visit * Reason Onset Date Comments ER Follow-up 10/25/2022 Encounter Details Date Type Department Care Team ([facility] st Contact Info) Description 10/25/2022 Telephone [facility] [address] [place], [place] [phone] Ventura Tavares MD 230 [place], [place] [phone] ER Follow-up Social History Tobacco Use Types [...] to report ED visit on 10/25/22 at [facility]. Diagnosed with fall. Patient advised will forward to team nurse for follow up. documented in this encounter Plan of Treatment Not on file documented as of this encounter Visit Diagnoses Not on filedocumented in this encounter Care Teams Lorry Weigher Relationship Specialty Start Date End Date Ventura Tavares MD [address] [place] [address] PCP - General Internal Medicine 03/11/14 Garrison Silverio MD [address] [place] [address] Nephrology 11/29/24 documented as of this encounter
--- OUTSIDE RECORDS SUMMARY | 2025-04-16 10:11 | XMS_ITS | Encounter Summary ---
Author Organization [employer] Address [address] [facility] [address] 7t [place] [address] Care Team Providers Care Medical Billing Specialist Name Role Phone Ventura Tavares MD Primary Care Provide r Garrison Silverio MD Unavailable Encounter Details Date Type Department Care Team (Late st Contact Info) Description 01/04/2023 Orders Only [facility] [address] [place] [address] Aime Bland MD 230 [place], [place] [phone] Dyspnea, unspecified type (Primary Dx) Social History [...] PM EDT Narrative 01/04/2023 2:57 PM EDT [address] [address] XRay Report Signed Patient: Sindi Obrien MR#: [id number] : 1950 Acct:[id number] Age/Sex: 72 / F ADM Date: 01/04/23 Loc: HO.HHCX Attending Dr: Aime Bland MD Ordering Physician: AIME BLAND MD Date of Service: 01/04/23 Procedure(s): XR chest 2V Accession Number(s): [id number] cc: AIME BLAND MD EXAMINATION: XR CHEST [...] in OV> 01/04/23 1454 DD/ 1420 TD/TT: Production Control Coordinating Clerk: HERSON Procedure Note Donotuseinterpreter, Image - 01/19/[address] [address] XRay Report Signed Patient: Sindi ObrienMR#: M [id number] : 1950cct:[id number] Age/Sex: 72 / FADM Date: 01/04/23 Loc: HO.HHCX Attending Dr: Aime Bland MD Ordering Physician: AIME BLAND MD Date of Service: 01/04/23 Procedure(s): XR chest 2V Accession Number(s): [id number] cc: AIME BLAND MD EXAMINATION: XR CHEST [...] in OV> 01/04/23 1454 DD/ 1420 TD/TT: Production Control Coordinating Clerk: HERSON [facility] External Provider IMG XR PROCEDURES Final Result documented in this encounter Visit Diagnoses Diagnosis Dyspnea, unspecified type- Primary documented in this encounter Additional Health Concerns Assessment Noted Time PHQ-9 Depression Total Score: 12 023 10:55 AM EDT documented as of this encounter Care Teams Medical Billing Specialist Relationship Specialty Start Date End Date Ventura Tavares MD [address] [place] [address] PCP - General Internal Medicine 03/11/14 Garrison Silverio MD [address] [place] [address] [address] [place] [address] Nephrology 11/29/24 documented as of this encounter
--- OUTSIDE RECORDS SUMMARY | 2025-04-16 10:11 | XMS_ITS | Encounter Summary ---
Author Organization [employer] Address [address] [facility] [address] 7t [place] [address] Care Team Providers Care Produce Wrapper Name Role Phone Ventura Tavares MD Primary Care Provide r Garrison Silverio MD Unavailable Reason for Visit * Reason Comments Med Refill Encounter Details Date Type Department Care Team ([facility] st Contact Info) Description 11/20/2024 Refill [facility] [address] [place] [address] Ventura Tavares MD 230 [place] [address] Pain Social History Tobacco Use Types Packs/Day [...] documented as of this encounter Care Teams Produce Wrapper Relationship Specialty Start Date End Date Ventura Tavares MD [address] [place] [address] PCP - General Internal Medicine 03/11/14 Garrison Silverio MD [address] [place] [address] Drive [address] [place] [address] Nephrology 11/29/24 documented as of this encounter
--- OUTSIDE RECORDS SUMMARY | 2025-04-16 10:11 | XMS_ITS | Encounter Summary ---
Author Organization [employer] Address [address] [facility] [address] [place] [address] Care Team Providers Care System Consultant Name Role Phone Ventura Tavares MD Primary Care Provide r Garrison Silverio MD Unavailable Encounter Details Date Type Department Care Team (Late st Contact Info) Description 03/02/2023 Orders Only [facility] [address] [place] [address] Terra Hannon LPN Social History Tobacco Use [...] documented as of this encounter Care Teams System Consultant Relationship Specialty Start Date End Date Ventura Tavares MD [address] [place] [address] PCP - General Internal Medicine 03/11/14 Garrison Silverio MD [address] [place] [address] [place] [address] Nephrology 11/29/24 documented as of this encounter
--- OUTSIDE RECORDS SUMMARY | 2025-04-16 10:11 | XMS_ITS | Encounter Summary ---
Author Organization [employer] Address [address] [place] [address] 7t [place] [address] Care Team Providers Care Equalizing Saw Operator Name Role Phone Ventura Tavares MD Primary Care Provide r Garrison Silverio MD Unavailable Encounter Details Date Type Department Care Team ([facility] st Contact Info) Description 07/09/2022 Orders Only [facility] [address] [place], [place] [phone] Ventura Tavares MD 230 [place], [place] [phone] Social History Tobacco Use Types Packs/Day Years [...] (09/06/2022 10:34 AM EST) Color Urine Yellow [facility] Appearance Urine Clear [facility] PH 7.5 5.0 - 9.0 [facility] Glucose Urine UA 100(A) Negative mg/dL [facility] Urine Blood Negative Negative [facility] Specific [place] - Urine 1.020 1.005 - 1.025 [facility] Urine Protein 100 (2+)(A) Neg-Trace mg/dL [facility] Urine Ketones Negative Negative mg/dL [facility] Nitrite Urine Negative Negative [facility] Leukocyte Esterase Urine Negative Negative [facility] RBC Urine 0-2 0 - 2 /HPF [facility] Urine WBC 0-5 0 - 5 /HPF [facility] Urine Squamous Epithelial Cell 6-10 0 - 2 /HPF [facility] Urine Bacteria None Seen None Seen [facility] Hyaline Casts, Urine 0-2 0 - 2 /LPF [facility] 09/06/2022 10:3 4 AM EST 09/06/2022 10:38 AM EST Narrative [facility] - 09/06/2022 10:51 AM EST [id number], Clean Catch us [facility] External Provider LAB URI NE ORDERABLES Final Result [facility] [address] [place] [address] [phone] * (ABNORMAL) Urinalysis with reflex microscopic (09/06/2022 10:34 AM EST) Color Urine Yellow [facility] Appearance Urine Clear [facility] PH 7.5 5.0 - 9.0 [facility] Glucose Urine UA 100(A) Negative mg/dL [facility] Urine Blood Negative Negative [facility] Specific [place] - Urine 1.020 1.005 - 1.025 [facility] Urine Protein 100 (2+)(A) Neg-Trace mg/dL [facility] Urine Ketones Negative Negative mg/dL [facility] Nitrite Urine Negative Negative [facility] Leukocyte Esterase Urine Negative Negative [facility] 09/06/2022 10:3 4 AM EST 09/06/2022 10:38 AM EST Narrative [facility] - 09/06/2022 10:45 AM EST [id number], Clean Catch [facility] External Provider LAB URI NE ORDERABLES Final Result Performing Organization Address [facility] de Phone Number [facility] [address] [place] [address] [phone] * (ABNORMAL) Comprehensive Metabolic Panel (09/06/2022 10:27 AM EST) Sodium 139 135 - 145 mmol/L [facility] Potassium 5.1 3.3 - 5.1 mmol/L [facility] Chloride 103 96 - 108 mmol/L [facility] Carbon Dioxide 29 22 - 29 mmol/L [facility] Anion Gap 12 12 - 20 [facility] Urea Nitrogen (BUN) 36(H) 9 - 16 mg/dL [facility] Creatinine, Serum 1.47(H) 0.5 - 1.4 mg/dL [facility] Creatinine Clr Calc Pharmacy 27.5 [facility] Comment:Provided height and weight: 134.62 cm,78.018 kg.eGFR (calculated from the MDRD study equation) and eCrCl(calculated from the Cockcroft-Gault equation) are based ondifferent parameters and may not yield comparable results.If eCrCl result is absurd, please check patient'sheight/weight. Estimated Glomerular Filt Rate 35 [facility] Comment:NOTE: For -Am erican individuals, multiply the result by 1.210.Chronic Kidney Disease: Estimated GFR < 60 mL/min/[id number] Kidney Disease: Estimated GFR < 15 mL/min/1.73m2 Glucose 190(H) 60 - 115 mg/dL [facility] Calcium 9.4 8.4 - 10.2 mg/dL [facility] Bilirubin, Total 0.6 0.0 - 1.0 mg/dL [facility] Aspartate Amino Transferase 18 5 - 31 U/L [facility] Alanine Aminotransferase 16 0 - 31 U/L [facility] Total Protein 6.9 6.5 - 8.0 g/dL [facility] Albumin Level 4.0 3.5 - 5.0 g/dL [facility] Alkaline Phosphatase 105 39 - 117 U/L [facility] 09/06/2022 10:2 7 AM EST 09/06/2022 10:31 AM EST us [facility] External Provider LAB BLO OD ORDERABLES Final Result [facility] [address] [place] [phone] * (ABNORMAL) CBC auto differential (09/06/2022 10:27 AM EST) White Blood Count 6.5 4.8 - 10.8 X10*3/uL [facility] Red Blood Count 3.99(L) 4.20 - 5.50 X10*6/uL [facility] Hemoglobin 12.0 12.0 - 16.0 g/dl [facility] Hematocrit 36.2(L) 37.0 - 47.0 % [facility] Mean Corpuscular Volume 90.7 80.0 - 98.0 fL [facility] Mean Corpuscular Hemoglobin 30.1 27.0 - 33.0 pg [facility] Mean Corpuscular HGB Conc 33.1 31.0 - 35.0 g/dl [facility] Red Cell Distribution Width 11.6 11.0 - 16.0 % [facility] Platelet Count 194 160 - 400 X10*3/uL [facility] Mean Platelet Volume 10.6 9.4 - 12.3 fL [facility] Neutrophils Percent Auto 64.0 45 - 73 % [facility] Imm Gran Pct Auto 0.3 0.0 - 0.4 % [facility] Lymphocytes Percent Auto 22.6 20 - 40 % [facility] Monocytes Percent Auto 7.9 2 - 11 % [facility] Eosinophils Percent Auto 4.7(H) 0 - 4 % [facility] Basophils Percent Auto 0.5 0 - 2 % [facility] NRBC Pct Auto 0.0 0.0 - 0.2 /100WBC [facility] Neutrophils Absolute Auto 4.1 2.0 - 8.3 x10*3/uL [facility] Imm Gran Abs Auto 0.02 0.00 - 0.03 X10*3/uL [facility] Lymphocytes Absolute Auto 1.5 1.2 - 4.9 X10*3/uL [facility] Monocytes Absolute Auto 0.5 0.1 - 1.2 X10*3/uL [facility] Eosinophils Absolute Auto 0.3 0.0 - 0.4 X10*3/uL [facility] Basophils Absolute Auto 0.0 0.0 - 0.2 X10*3/uL [facility] NRBC Abs Auto 0.000 0.0 - 0.012 X10*3/uL [facility] 09/06/2022 10:2 7 AM EST 09/06/2022 10:31 AM EST us [facility] External Provider LAB BLO OD ORDERABLES Final Result Performing Organization Address [facility]/ZIP Co de Phone Number [facility] [address] [place] [phone] * Calcium (08/03/2022 8:15 AM EST) Calcium 9.2 8.4 - 10.2 mg/dL [facility] 08/03/2022 8:15 AM EST 08/03/2022 10:30 AM EST [facility] External Provider LAB BLO OD ORDERABLES Final Result Performing Organization Address [facility] de Phone Number [facility] [address] [place] [phone] * (ABNORMAL) Creatinine, Serum (08/03/2022 8:15 AM EST) Creatinine, Serum 1.54(H) 0.5 - 1.4 mg/dL [facility] Estimated Glomerular Filt Rate 33 [facility] Comment:NOTE: For -Am erican individuals, multiply the result by 1.210.Chronic Kidney Disease: Estimated GFR < 60 mL/min/1.44z0Lzatre Kidney Disease: Estimated GFR < 15 mL/min/1.73m2 08/03/2022 8:15 AM EST 08/03/2022 10:30 AM EST [facility] External Provider LAB BLO OD ORDERABLES Final Result Performing Organization Address [facility] Co de Phone Number [facility] [address] [place] [phone] * (ABNORMAL) BUN (Blood Urea Nitrogen) (08/03/2022 8:15 AM EST) Urea Nitrogen (BUN) 39(H) 9 - 16 mg/dL [facility] 08/03/2022 8:15 AM EST 08/03/2022 10:30 AM EST [facility] External Provider LAB BLO OD ORDERABLES Final Result Performing Organization Address [facility] Co de Phone Number [facility] [address] [place] [address] [phone] * (ABNORMAL) Electrolyte Panel (08/03/2022 8:15 AM EST) Sodium 140 135 - 145 mmol/L [facility] Potassium 5.5(H) 3.3 - 5.1 mmol/L [facility] Chloride 106 96 - 108 mmol/L [facility] Carbon Dioxide 28 22 - 29 mmol/L [facility] Anion Gap 12 12 - 20 [facility] 08/03/2022 8:15 AM EST 08/03/2022 10:30 AM EST [facility] External Provider LAB BLO OD ORDERABLES Final Result Performing Organization Address [facility] de Phone Number [facility] [address] [place] [address] [phone] documented in this encounter Visit Diagnoses Not on filedocumented in this encounter Care Teams Equalizing Saw Operator Relationship Specialty Start Date End Date Ventura Tavares MD [address] [place] [phone] PCP - General Internal Medicine 03/11/14 Garrison Silverio MD [address] [place] [address] Nephrology 11/29/24 documented as of this encounter
--- OUTSIDE RECORDS SUMMARY | 2025-04-16 10:11 | XMS_ITS | Clinical Summary ---
Author Organization [facility] Address [address] [place] [address] [address] [place] JOSLYN [phone] Phone Care Team Providers Care Creative Specialist Name Role Phone Ventura Schulz MD Primary [...] & Plan: Improving Pt seen at our [facility] by Dr Demarcus Larry, [place] [...] patient's age to complete this topic [place] [address] ([id number]) [place] [phone] [place] [address] [facility] ([id number]) [place] [phone] Care Teams Creative Specialist Relationship Specialty Start Date End Date Ventura Schulz MD [address] [facility] [place] [address] PCP - General 08/04/20
--- OUTSIDE RECORDS SUMMARY | 2025-04-16 10:11 | XMS_ITS | Encounter Summary ---
Author Organization [employer] Address [address] [facility] 7[address] [place] [address] Care Team Providers Care Program Director/Air Personality Name Role Phone Ventura Tavares MD Primary Care Provide r Garrison Silverio MD Unavailable Encounter Details Date Type Department Care Team (Late st Contact Info) Description 07/05/2023 Telephone [facility] [address] [place] [address] Ventura Tavares MD [address] [place], [place] [phone] Social History Tobacco Use Types Packs/Day Years [...] 07/05/2023 2:11 PM EST Tc from [facility]ad (WAD LUBRICATOR) with [facility] calling to advise provider, a home assessment was done on behalf of CCAand pt A1C came out to be 10.8 Any questions, contact [employer] at [phone] documented in this encounter Plan of Treatment Not on file documented as of this encounter Visit Diagnoses Not on filedocumented in this encounter Additional Health Concerns Assessment Noted Time PHQ-9 Depression Total Score: 12 023 10:55 AM EDT documented as of this encounter Care Teams Program Director/Air Personality Relationship Specialty Start Date End Date Ventura Tavares MD [address] [place] [phone] PCP - General Internal Medicine 03/11/14 Garrison Silverio MD [address] [place] [phone] Nephrology 11/29/24 documented as of this encounter
--- OUTSIDE RECORDS SUMMARY | 2025-04-16 10:11 | XMS_ITS | Encounter Summary ---
Author Organization [employer] Address [address] [facility] 7t [place] [address] Care Team Providers Care Drum Cleaner Name Role Phone Ventura Tavares MD Primary Care Provide r Garrison Silverio MD Unavailable Encounter Details Date Type Department Care Team (Late st Contact Info) Description 09/20/2022 Orders Only [facility] [address] [place] [address] Terra Hannon LPN Social History Tobacco Use [...] on filedocumented in this encounter Care Teams Drum Cleaner Relationship Specialty Start Date End Date Ventura Tavares MD [address] [place] [phone] PCP - General Internal Medicine 03/11/14 Garrison Silverio MD [address] [place] [address] Drive [address] [place] [address] Nephrology 11/29/24 documented as of this encounter
--- OUTSIDE RECORDS SUMMARY | 2025-04-16 10:11 | XMS_ITS | Patient Health Record ---
Author Organization [facility] Address [address] [place] [address] Care Team Providers Care Candle Molder Machine Name Role Phone Zeus Maldonado MD, Ventura Primary Care Provide Castillo Cash Unavailable [phone] Allergies Allergen (clinical drug ingredient) Drug/Non Drug [...] for 30 days 10/13/2022 Active Vitamin D3 34185 UNIT 1 tablet Orally On ce a [...] W/U Status Risk Notes Problem Epigastric pain (11324329) Epigastric abdominal pain (R10.13) Active confirmed Problem 782740885 Encounter for screening for malignant neoplasm of colon (Z12.11) Active confirmed Problem Screening for malignant neoplasm of rectum (931158274) Encounter for screening for malignant neoplasm of rectum (Z12.12) Active confirmed Problem 091817224 Long-term use of aspirin therapy (Z79.82) Active confirmed Problem 63126812 Constipation, unspecified constipation type (K59.00) Active confirmed Problem Gastroesophageal reflux disease (021659400) GERD (gastroesophage al reflux disease) (K21.9) Active confirmed Problem Chronic constipation (746540409) Constipation, chronic (K59.00) Active confirmed Plan Of Treatment Pending Test Test Name Order Date US ABD 05/23/2020 TSH REFLEX FREE T4 10/13/2022 Future Test Test Name Order Date COLONOSCOPY 06/12/2015 UPPER GI ENDOSCOPY 05/23/2020 Insurance Providers Payer Name Payer Address Payer Phone Subscriber Number Group Number Insured Name Patient Relationship to Insured Coverage Start Date Coverage End Date [facility] [address] [place] [phone] [id number] CARINE LOCKHART Self - patient is the [...]
--- OUTSIDE RECORDS SUMMARY | 2025-04-16 10:11 | XMS_ITS | Encounter Summary ---
Author Organization [employer] Address [address] [facility] [address] [place] [address] Care Team Providers Care Charger Tester Name Role Phone Ventura Tavares MD Primary Care Provide r Garrison Silverio MD Unavailable Encounter Details Date Type Department Care Team (Late st Contact Info) Description 04/07/2023 Telephone [facility] [address] [place] [address] Ventura Tavares MD [address] [place] [address] Social History Tobacco Use Types Packs/Day Years [...] documented as of this encounter Care Teams Charger Tester Relationship Specialty Start Date End Date Ventura Tavares MD [address] [place] [phone] PCP - General Internal Medicine 03/11/14 Garrison Silverio MD [address] [place] [address] [address] [place] [address] Nephrology 11/29/24 documented as of this encounter
--- OUTSIDE RECORDS SUMMARY | 2025-04-16 10:11 | XMS_ITS | Clinical Summary ---
Author Organization [employer] Address [address] [place] [address] 7t [place] [address] Care Team Providers Care Construction Teacher Name Role Phone Ventura Tavares MD [...] appears bluish ,regular borders -referred today to parts and service manager Routine physical examination 04/19/2023 Assessment & Plan [...] Larry spoke with Dr. Cosme's office (her steel layout worker), pt was seen 12/27/2023. We notified the office that her horse show judge Dr. Silverio prescribes Lasix 20 mg 2 tabs po daily. Patient followed by Dr Cosme Delinquent Account Clerk, Previous Stress Test and ECHO unremarkable. Last seen 07/03/2024. Assessment & Plan (05/15/2024 1:05 PM EDT): Seen initially by Dr Demarcus Larry with c/o LE edema and elevated BNP, CXR was unermarkable. Dr. Larry spoke with Dr. Cosme's office (her steel layout worker), pt was seen 12/27/2023. We notified the office that her horse show judge Dr. Silverio prescribes Lasix 20 mg 2 tabs po daily. Patient followed by Dr Cosme Delinquent Account Clerk, Previous Stress Test and ECHO unremarkable. Last seen 12/27/2023. Assessment & Plan (09/22/2023 11:38 AM EST): Seen by Dr Demarcus Larry with c/o LE edema, referred to cardiology seen by Dr Cosme Delinquent Account Clerk, Stress Test and ECHO unremarkable Assessment & Plan (01/18/2023 10:50 AM EDT): Seen by Dr Demarcus Larry with c/o LE edema, referred to cardiology seen by Dr Cosme 01/06/2023 ECHO ordered [facility] care 01/18/2023 Assessment & Plan (12/04/2024 [...] [facility] Hyperlipidemia 04/06/2012 Assessment & Plan (12/04/2024 [...] Plan: As per Endocrinology Eye exam with [employer] Law Clerk [facility] 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 Last [...] Plan: As per Endocrinology Eye exam with [employer] Law Clerk [facility] diagnosed with Dr. both eyes. Last seen 12/06/2023 Pt does not adhere to a diabetic diet, does not want to go any higher on her insulin dose as it was recommended by her Supervisor [employer]. 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 Last seen 12/06/2023 Pt does not adhere to a diabetic diet, does not want to go any higher on her insulin dose as it was recommended by her Supervisor [employer]. Pt advised to Adhere to diabetic diet [...] 81 mg po daily. 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 Pt advised to Adhere to diabetic diet [...] 81 mg po daily. 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 Pt advised to Adhere to diabetic diet [...] 81 mg po daily. 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 Pt advised to Adhere to diabetic diet [...] 81 mg po daily. 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 Pt advised to Adhere to diabetic diet [...] 81 mg po daily. 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 Pt advised to Adhere to diabetic diet [...] DEPARTMENT Provider, Generic External Data 02/27/2025 Refill [facility] [address] [place] [address] Ventura Tavares MD Pain 02/21/2025 Results Follow-Up [facility] [address] [place] [address] Ventura Tavares MD CBC auto differential, Comprehensive Metabolic Panel, Lipase, Additional followed-up results: 4 02/13/2025 Orders Only GENERIC EXTERNAL DATA DEPARTMENT Provider, Generic External Data 02/11/2025 Refill [facility] [address] [place] [address] Ventura Tavares MD Primary hypertension from Last [...] disease, with long-term current use of insulin ([facility]) LIPID PANEL, STANDARD Routine 11/29/2024 8:20 AM EDT Mixed hyperlipidemia BI MAMMOGRAM SCREENING TOMOSYNTHESIS BILATERAL Routine 10/24/2023 12:40 PM EDT HM COLONOSCOPY Routine 09/01/2015 from Last 3 Months or Most Recently Relevant to Health Maintenance Results * Glucose, Whole Blood (04/05/2025 8:46 AM EDT) Glucose, Whole Blood 90 60 - 115 mg/dL [facility] Comment:METER #: [id number] 0Testing performed in the Endocrinology Department [address] , [address], [facility]. 04/05/2025 8:46 AM EDT 04/05/2025 8:50 AM EDT us Generic External Data Provider LAB BLOOD ORDERAB LES Final Result [facility] [address] [place] [address] [phone] * (ABNORMAL) Urinalysis, Complete, with Reflex to Culture (02/13/2025 3:18 PM EDT) Color Urine Yellow [facility] Appearance Urine Clear [facility] PH 5.5 5.0 - 9.0 [facility] Glucose Urine UA >=1000(A) Negative mg/dL [facility] Urine Blood Negative Negative [facility] Specific Mcintyre - Urine 1.020 1.005 - 1.025 [facility] Urine Protein Trace Neg-Trace mg/dL [facility] Urine Ketones Negative Negative mg/dL [facility] Nitrite Urine Negative Negative [facility] Leukocyte Esterase Urine Negative Negative [facility] RBC Urine 0-2 0 - 2 /HPF [facility] Urine WBC 0-5 0 - 5 /HPF [facility] Urine Squamous Epithelial Cell 0-2 0 - 2 /HPF [facility] Urine Bacteria None Seen None Seen [facility] Hyaline Casts, Urine 0-2 0 - 2 /LPF [facility] 02/13/2025 3:18 PM EDT 02/13/2025 3:21 PM EDT Narrative [facility] - 02/13/2025 3:56 PM EDT Urine, Clean Catch Generic External Data Provider LAB URINE ORDERAB LES Final Result Performing Organization Address [facility]/ZIP Co de Phone Number [facility] [address] [place] [phone] * (ABNORMAL) Bacterial Vaginosis (02/13/2025 3:07 PM EDT) TRICHOMONAS VAGINALIS DETECTION BY PCR NOT DETECTED Not Detect [facility] BACTERIAL VAGINOSIS DETECTION BY PCR POSITIVE(A) Negative [facility] Comment:The BV organism targ ets of [...] DETECTION BY PCR NOT DETECTED Not Detect [facility] Celestina glab krusei PCR NOT DETECTED Not Detect [facility] 02/13/2025 3:07 PM EDT 02/13/2025 3:17 PM EDT Generic External Data Provider LAB MICROBIOLOGY - GENERAL ORDERABLES Final Result Performing Organization Address [facility]/ZIP Co de Phone Number [facility] [address] [place] [phone] * Chlamydia/N. Gonorrhoeae RNA, TMA, Urogenitial (02/13/2025 3:07 PM EDT) CT PCR NOT DETECTED Not Detect. [facility] Comment:A not detected test result does [...] psychologicalconsequences. NG PCR NOT DETECTED Not Detect. [facility] Comment:A not detected test result does [...] LAB MICROBIOLOGY - GENERAL ORDERABLES Final Result [facility] [address] [place] [phone] * Wet prep, genital (02/13/2025 3:07 PM EDT) Vaginal Fluid Vaginal structure / Unknown 02/13/2025 3:07 PM EDT 02/13/2025 3:17 PM EDT Comment:Vaginal Narrative [facility] - 02/13/2025 3:26 PM EDT Trichomonas Prep Direct Microscopic Exam Trichomonas Prep No trichomonads or yeast seen Specimen Source: Vaginal us Generic External Data Provider LAB MICROBIOLOGY - GENERAL ORDERABLES Final Result Performing Organization Address City/State/[facility] Co de Phone Number [facility] [address] [place] [phone] * CT Abdomen Pelvis w/o Contrast (02/13/2025 2:29 PM EDT) Anatomical Region Laterality Modality Body, Pelvis, Abdomen Computed T omography 02/13/2025 2:29 PM EDT Narrative 02/13/2025 3:57 PM EDT [address] [place] [address] [address] [address] Scan Report Signed Patient: Sindi Obrien MR#: M [id number] : 1950 Acct:[id number] Age/Sex: 74 / F ADM Date: 02/13/25 Loc: .ED Attending Dr: Ordering Physician: Airam Acevedo Date of Service: 02/13/25 Procedure(s): CT abdomen pelvis wo IV con Accession Number(s): [id number] cc: Venutra Shi MD; Airam Acevedo Report Number: [id number]: Total DLP = 505.00 mGy-cm EXAMINATION: CT [...] 02/13/25 1553 DD/ 1429 TD/TT: 02/13/25 1538 Broth Setter: Procedure Note Donotuseinterpreter, Image - 02/13/[address] [place] [address] [address] Scan Report Signed Patient: Sindi Obrien#: M [id number] : 1950cct:[id number] Age/Sex: 74 / FADM Date: 02/13/25 Loc: HO.ED Attending Dr: Ordering Physician: Airam Acevedo Date of Service: 02/13/25 Procedure(s): CT abdomen pelvis wo IV con Accession Number(s): [id number] cc: Ventura Shi MD; Airam Acevedo Report Number: [id number]: Total DLP = 505.00 mGy-cm EXAMINATION: CT [...] MD Signed By: <Electronically signed by Hakeem Ohcoa MDin OV> 02/13/25 1553 DD/ 1429 TD/TT: 02/13/25 1538 Broth Setter: us [facility] External Provider IMG CT PROCEDURES Final Result * (ABNORMAL) CBC auto differential (02/13/2025 1:44 PM EDT) White Blood Count 6.1 4.8 - 10.8 X10*3/uL [facility] Red Blood Count 3.59(L) 4.20 - 5.50 X10*6/uL [facility] Hemoglobin 11.3(L) 12.0 - 16.0 g/dl [facility] Hematocrit 33.9(L) 37.0 - 47.0 % [facility] Mean Corpuscular Volume 94.4 80.0 - 98.0 fL [facility] Mean Corpuscular Hemoglobin 31.5 27.0 - 33.0 pg [facility] Mean Corpuscular HGB Conc 33.3 31.0 - 35.0 g/dl [facility] Red Cell Distribution Width 11.9 11.0 - 16.0 % [facility] Platelet Count 184 160 - 400 X10*3/uL [facility] Mean Platelet Volume 10.2 9.4 - 12.3 fL [facility] Neutrophils Percent Auto 65.4 45 - 73 % [facility] Imm Gran Pct Auto 0.2 0.0 - 0.4 % [facility] Lymphocytes Percent Auto 19.8(L) 20 - 40 % [facility] Monocytes Percent Auto 7.8 2 - 11 % [facility] Eosinophils Percent Auto 6.3(H) 0 - 4 % [facility] Basophils Percent Auto 0.5 0 - 2 % [facility] NRBC Pct Auto 0.0 0.0 - 0.2 /100WBC [facility] Neutrophils Absolute Auto 4.0 2.0 - 8.3 x10*3/uL [facility] Imm Gran Abs Auto 0.01 0.00 - 0.03 X10*3/uL [facility] Lymphocytes Absolute Auto 1.2 1.2 - 4.9 X10*3/uL [facility] Monocytes Absolute Auto 0.5 0.1 - 1.2 X10*3/uL [facility] Eosinophils Absolute Auto 0.4 0.0 - 0.4 X10*3/uL [facility] Basophils Absolute Auto 0.0 0.0 - 0.2 X10*3/uL [facility] NRBC Abs Auto 0.000 0.0 - 0.012 X10*3/uL [facility] 02/13/2025 1:44 PM EDT 02/13/2025 1:48 PM EDT Generic External Data Provider LAB BLOOD ORDERAB LES Final Result Performing Organization Address City/[facility]/ZIP Co de Phone Number [facility] [address] [place] [phone] * Lipase (02/13/2025 1:44 PM EDT) Lipase 28 8 - 78 U/L [facility] 02/13/2025 1:44 PM EDT 02/13/2025 1:48 PM EDT [employer] External Data Provider LAB BLOOD ORDERAB LES Final Result Performing Organization Address [facility] de Phone Number [facility] [address] [place] [phone] * (ABNORMAL) Comprehensive Metabolic Panel (02/13/2025 1:44 PM EDT) Sodium 142 135 - 145 mmol/L [facility] Potassium 5.0 3.3 - 5.1 mmol/L [facility] Chloride 108 96 - 108 mmol/L [facility] Carbon Dioxide 28 22 - 29 mmol/L [facility] Anion Gap 11(L) 12 - 20 [facility] Urea Nitrogen (BUN) 35(H) 9 - 16 mg/dL [facility] Creatinine, Serum 1.72(H) 0.5 - 1.4 mg/dL [facility] Creatinine Clr Calc Pharmacy 21.4 [facility] Comment:Provided height and weight: 134.62 cm,72.4 kg.eGFR (calculated from the MDRD study equation) and eCrCl(calculated from the Cockcroft-Gault equation) are based ondifferent parameters and may not yield comparable results.If eCrCl result is absurd, please check patient'sheight/weight. Estimated Glomerular Filt Rate 29 [facility] Comment:Chronic Kidney Disea se: Estimated GFR < 60 mL/min/1.86l4Zrlwqr Kidney Disease: Estimated GFR < 15 mL/min/1.73m2 Glucose 194(H) 60 - 115 mg/dL [facility] Calcium 9.0 8.4 - 10.2 mg/dL [facility] Bilirubin, Total 0.3 0.0 - 1.0 mg/dL [facility] Aspartate Amino Transferase 23 5 - 31 U/L [facility] Alanine Aminotransferase 32(H) 0 - 31 U/L [facility] Total Protein 7.1 6.5 - 8.0 g/dL [facility] Albumin Level 4.0 3.5 - 5.0 g/dL [facility] Alkaline Phosphatase 145(H) 39 - 117 U/L [facility] 02/13/2025 1:44 PM EDT 02/13/2025 1:48 PM EDT us Generic External Data Provider LAB BLOOD ORDERAB LES Final Result [facility] [address] [place] [phone] * (ABNORMAL) POCT HGB A1C (12/04/2024 10:30 AM EDT) Pathologist [facility] Hemoglobin A1C 8.1(A) 4.0 - 6.0 % QC Media Lot # [id number] Lot# Expiration Date Blood 12/04/2024 10:3 0 AM EDT us Ventura Maldonado MD POINT OF CARE TEST EN TER/EDIT ORDERABLES Final Result * Lipid Panel, Standard (11/29/2024 8:20 AM EDT) Triglycerides 56 <150 mg/dL [facility] Comment:Desirable Triglyceri de: less than 150 mg/dLBorderline High Triglyceride 150-199 mg/dLHigh Triglyceride: 200-499 mg/dLVery High Triglyceride: greater than or equal to 5OO mg/dL Cholesterol 131 <200 mg/dL [facility] Comment:Desirable Cholestero l: less than 200 mg/dLBorderline High Cholesterol: 200-239 mg/dLHigh Cholesterol: greater than 239 mg/dL LDL Cholesterol Calculated 54 <100 mg/dL [facility] Comment:Desirable LDL: less than 100 mg/dLNear Optimal/Above Optimal LDL: 110- 129 mg/dLBorderline High LDL: 130-159 mg/dLHigh LDL: 160-189 mg/dLVery High LDL: greater than or equal to 190 mg/dL HDL Cholesterol 66 >40 mg/dL [facility] Comment:Desirable HDL: great er than 40 mg/dL Note: This HDL assay may give artificially low results in patients with liver disease. Blood Venous blood specimen / Unknown 11/29/2024 8:20 AM EDT 11/29/2024 11:12 AM EDT Ventura Maldonado MD LAB BLOOD ORDERABLES Final Result Performing Organization Address City/State/[facility] Co de Phone Number [facility] [address] [place] [phone] * BI Mammogram Screening Tomosynthesis Bilateral (10/24/2023 12:40 PM EDT) Anatomical Region Laterality Modality Breast Bilateral Mammography 10/24/2023 12:4 0 PM EDT Narrative 11/06/2023 3:28 PM EDT [facility] [address] [place] [address] Mammography Report Signed Patient: Sindi Obrien MR#: M [id number] : 1950 Acct:[id number] Age/Sex: 72 / F ADM Date: 10/24/23 Loc: SAJAN Attending Dr: Ventura Shi MD Ordering Physician: Ventura Shi MD Resu lts: 2Benign Findings Date of Service: 10/24/23 Follow Up: 1 Year From Orig inal Mammogram Procedure(s): MM tomosynthesis screening BI Accession Number(s): [id number] cc: Ventura Shi MD EXAMINATION: MM SCREENING [...] in OV> 11/06/23 1525 DD/ 1240 TD/TT: Broth Setter: Procedure Note Donotuseinterpreter, Image - 11/06/2023 [facility] [address] [place], [place] [address] Mammography Report Signed Patient: Sindi Obrien#: M [id number] : 2Acct:[id number] Age/Sex: 72 / FADM Date: 10/24/23 Loc: SAJAN Attending Dr: Vetnura Shi MD Ordering Physician: Ventura Shi MDResu lts: 2Benign Findings Date of Service: 10/24/23Follow Up: 1 Year From Orig inal Mammogram Procedure(s): MM tomosynthesis screening BI Accession Number(s): [id number] cc: Ventura Shi MD EXAMINATION: MM SCREENING [...] in OV> 11/06/23 1525 DD/ 1240 TD/TT: Broth Setter: Ventura Maldonado MD IMG BI PROCEDURES Ortiz cesar Result - Final * Colonoscopy (09/01/2015) Colonoscopy Normal Normal 09/01/2015 Brittany Patel - 09/01/2015 11:54 AM EST Recommended 10 year follow up Historical Provider HEALTH MAINTENANCE Edited Result - Final from Last 3 Months or Most Recently Relevant to Health Maintenance Insurance [facility] [employer] OPT[employer] (O D-SNP) [place] [employer] [id number] Care Teams Construction Teacher Relationship Specialty Start Date End Date Ventura Tavares MD [address] [place] [phone] PCP - General Internal Medicine 03/11/14 Garrison Silverio MD [address] [place] [address] [address] [place] [address] Nephrology 11/29/24
[2025-04-16 13:16] LABS: Anion Gap 12 (12-20); Blood Urea Nitrogen 45 mg/dL (9-16); Calcium 9.1 mg/dL (8.4-10.2); Carbon Dioxide 28 mmol/L (22-29); Chloride 108 mmol/L (96-108); Estimated Glomerular Filt Rate 30; Potassium 5.5 mmol/L (3.3-5.1); Sodium 142 mmol/L (135-145)
== END 2025-04-16 08:56 | disposition home or self-care (01) ==
LOC: HO.HHCL 08:55
PROVIDERS: PCP Internal Medicine; Visit Provider Internal Medicine Nephrology
DX: I12.9 Hypertensive chronic kidney disease with stage 1 through stage 4 chronic kidney disease, or unspecified chronic kidney disease (principal); E11.22 Type 2 diabetes mellitus with diabetic chronic kidney disease; N18.30 Chronic kidney disease, stage 3 unspecified; E11.21 Type 2 diabetes mellitus with diabetic nephropathy
CPT/HCPCS: 36415; 80051; 82310; 82565; 84520

== ENCOUNTER 2025-04-17 12:57 | Outpatient (REF) | payer OTHER, SELFPAY ==
--- NOTE | ~2025-04-17 | MM_ITS ---
EXAMINATION: MM SCREENING DIGITAL BREAST TOMOSYNTHESIS, BILATERAL CLINICAL INFORMATION: Screening. Asymptomatic. COMPARISON: Comparison made to multiple prior, most recent October 24, 2023, and most remote July 06, 2016. TECHNIQUE: Digital breast tomosynthesis is performed in mediolateral oblique and craniocaudal views along with computer-aided detection (CAD). Synthesized 2D images are generated from the tomosynthesis. FINDINGS: BREAST COMPOSITION: There are scattered areas of fibroglandular density. RIGHT BREAST: Tissue marker from previous needle core biopsy. No significant masses, suspicious calcifications or other abnormalities are seen. LEFT BREAST: No significant masses, suspicious calcifications or other abnormalities are seen. MM/MM tomosynthesis screening BI IMPRESSION: BILATERAL BREASTS: Benign, no mammographic evidence of malignancy. Normal interval follow-up is recommended in 12 months. ASSESSMENT: BI-RADS: Category 2: Benign RECOMMENDATION: Routine annual mammography screening. FOLLOW-UP: 1 year F/U This examination should not preclude the clinical evaluation of a suspicious palpable abnormality. This patient's information was entered into a reminder system with a target due date for their next mammogram. Electronically signed by: Everett Hi MD 04/19/2025 06:40 PM EDT
--- OUTSIDE RECORDS SUMMARY | 2025-04-17 15:24 | XMS_ITS | Encounter Summary ---
Author Organization [employer] Address [address] [facility] 7t [place] [address] Care Team Providers Care Commercial Credit Lead Name Role Phone Ventura Tavares MD Primary Care Provide r Garrison Silverio MD Unavailable Reason for Visit * Reason Onset Date Comments ER Follow-up 10/25/2022 Encounter Details Date Type Department Care Team ([facility] st Contact Info) Description 10/25/2022 Telephone [facility] [address] [place], [place] [phone] Ventura Tavares MD [address] [place], [place] [phone] ER Follow-up Social History Tobacco Use Types [...] to report ED visit on 10/25/[address] [facility]. Diagnosed with fall. Patient advised will forward to team nurse for follow up. documented in this encounter Plan of Treatment Not on file documented as of this encounter Visit Diagnoses Not on filedocumented in this encounter Care Teams Commercial Credit Lead Relationship Specialty Start Date End Date Ventura Tavares MD [address] [place] [phone] PCP - General Internal Medicine 03/11/14 Garrison Silverio MD [address] [place] [address] Nephrology 11/29/24 documented as of this encounter
--- OUTSIDE RECORDS SUMMARY | 2025-04-17 15:24 | XMS_ITS | Encounter Summary ---
Author Organization [email or web address] Address [address] [place] [address] 7t [place] [address] Care Team Providers Care Restrike Hammer Operator Name Role Phone Ventura Tavares MD Primary Care Provide r Garrison Silverio MD Unavailable Encounter Details Date Type Department Care Team ([facility] st Contact Info) Description 07/09/2022 Orders Only [facility] [address] [place], [place] [phone] Ventura Tavares MD [address] [place], [place] [phone] Social History Tobacco Use Types Packs/Day Years [...] (09/06/2022 10:34 AM EST) Color Urine Yellow [facility] Appearance Urine Clear [facility] PH 7.5 5.0 - 9.0 [facility] Glucose Urine UA 100(A) Negative mg/dL [facility] Urine Blood Negative Negative [facility] Specific [place] - Urine 1.020 1.005 - 1.025 [facility] Urine Protein 100 (2+)(A) Neg-Trace mg/dL [facility] Urine Ketones Negative Negative mg/dL [facility] Nitrite Urine Negative Negative [facility] Leukocyte Esterase Urine Negative Negative [facility] RBC Urine 0-2 0 - 2 /HPF [facility] Urine WBC 0-5 0 - 5 /HPF [facility] Urine Squamous Epithelial Cell 6-10 0 - 2 /HPF [facility] Urine Bacteria None Seen None Seen [facility] Hyaline Casts, Urine 0-2 0 - 2 /LPF [facility] 09/06/2022 10:3 4 AM EST 09/06/2022 10:38 AM EST Narrative [facility] - 09/06/2022 10:51 AM EST [id number], Clean Catch us [facility] External Provider LAB URI NE ORDERABLES Final Result [facility] [address] [place] [address] [phone] * (ABNORMAL) Urinalysis with reflex microscopic (09/06/2022 10:34 AM EST) Color Urine Yellow [facility] Appearance Urine Clear [facility] PH 7.5 5.0 - 9.0 [facility] Glucose Urine UA 100(A) Negative mg/dL [facility] Urine Blood Negative Negative [facility] Specific [place] - Urine 1.020 1.005 - 1.025 [facility] Urine Protein 100 (2+)(A) Neg-Trace mg/dL [facility] Urine Ketones Negative Negative mg/dL [facility] Nitrite Urine Negative Negative [facility] Leukocyte Esterase Urine Negative Negative [facility] 09/06/2022 10:3 4 AM EST 09/06/2022 10:38 AM EST Narrative [facility] - 09/06/2022 10:45 AM EST [id number], Clean Catch [facility] External Provider LAB URI NE ORDERABLES Final Result Performing Organization Address [facility] de Phone Number [facility] [address] [place] [address] [phone] * (ABNORMAL) Comprehensive Metabolic Panel (09/06/2022 10:27 AM EST) Sodium 139 135 - 145 mmol/L [facility] Potassium 5.1 3.3 - 5.1 mmol/L [facility] Chloride 103 96 - 108 mmol/L [facility] Carbon Dioxide 29 22 - 29 mmol/L [facility] Anion Gap 12 12 - 20 [facility] Urea Nitrogen (BUN) 36(H) 9 - 16 mg/dL [facility] Creatinine, Serum 1.47(H) 0.5 - 1.4 mg/dL [facility] Creatinine Clr Calc Pharmacy 27.5 [facility] Comment:Provided height and weight: 134.62 cm,78.018 kg.eGFR (calculated from the MDRD study equation) and eCrCl(calculated from the Cockcroft-Gault equation) are based ondifferent parameters and may not yield comparable results.If eCrCl result is absurd, please check patient'sheight/weight. Estimated Glomerular Filt Rate 35 [facility] Comment:NOTE: For -Am erican individuals, multiply the result by 1.210.Chronic Kidney Disease: Estimated GFR < 60 mL/min/1.56e7Qhosvf Kidney Disease: Estimated GFR < 15 mL/min/1.73m2 Glucose 190(H) 60 - 115 mg/dL [facility] Calcium 9.4 8.4 - 10.2 mg/dL [facility] Bilirubin, Total 0.6 0.0 - 1.0 mg/dL [facility] Aspartate Amino Transferase 18 5 - 31 U/L [facility] Alanine Aminotransferase 16 0 - 31 U/L [facility] Total Protein 6.9 6.5 - 8.0 g/dL [facility] Albumin Level 4.0 3.5 - 5.0 g/dL [facility] Alkaline Phosphatase 105 39 - 117 U/L [facility] 09/06/2022 10:2 7 AM EST 09/06/2022 10:31 AM EST us [facility] External Provider LAB BLO OD ORDERABLES Final Result [facility] [address] [place] [phone] * (ABNORMAL) CBC auto differential (09/06/2022 10:27 AM EST) White Blood Count 6.5 4.8 - 10.8 X10*3/uL [facility] Red Blood Count 3.99(L) 4.20 - 5.50 X10*6/uL [facility] Hemoglobin 12.0 12.0 - 16.0 g/dl [facility] Hematocrit 36.2(L) 37.0 - 47.0 % [facility] Mean Corpuscular Volume 90.7 80.0 - 98.0 fL [facility] Mean Corpuscular Hemoglobin 30.1 27.0 - 33.0 pg [facility] Mean Corpuscular HGB Conc 33.1 31.0 - 35.0 g/dl [facility] Red Cell Distribution Width 11.6 11.0 - 16.0 % [facility] Platelet Count 194 160 - 400 X10*3/uL [facility] Mean Platelet Volume 10.6 9.4 - 12.3 fL [facility] Neutrophils Percent Auto 64.0 45 - 73 % [facility] Imm Gran Pct Auto 0.3 0.0 - 0.4 % [facility] Lymphocytes Percent Auto 22.6 20 - 40 % [facility] Monocytes Percent Auto 7.9 2 - 11 % [facility] Eosinophils Percent Auto 4.7(H) 0 - 4 % [facility] Basophils Percent Auto 0.5 0 - 2 % [facility] NRBC Pct Auto 0.0 0.0 - 0.2 /100WBC [facility] Neutrophils Absolute Auto 4.1 2.0 - 8.3 x10*3/uL [facility] Imm Gran Abs Auto 0.02 0.00 - 0.03 X10*3/uL [facility] Lymphocytes Absolute Auto 1.5 1.2 - 4.9 X10*3/uL [facility] Monocytes Absolute Auto 0.5 0.1 - 1.2 X10*3/uL [facility] Eosinophils Absolute Auto 0.3 0.0 - 0.4 X10*3/uL [facility] Basophils Absolute Auto 0.0 0.0 - 0.2 X10*3/uL [facility] NRBC Abs Auto 0.000 0.0 - 0.012 X10*3/uL [facility] 09/06/2022 10:2 7 AM EST 09/06/2022 10:31 AM EST us [facility] External Provider LAB BLO OD ORDERABLES Final Result Performing Organization Address [facility]/ZIP Co de Phone Number [facility] [address] [place] [phone] * Calcium (08/03/2022 8:15 AM EST) Calcium 9.2 8.4 - 10.2 mg/dL [facility] 08/03/2022 8:15 AM EST 08/03/2022 10:30 AM EST [facility] External Provider LAB BLO OD ORDERABLES Final Result Performing Organization Address [facility] de Phone Number [facility] [address] [place] [phone] * (ABNORMAL) Creatinine, Serum (08/03/2022 8:15 AM EST) Creatinine, Serum 1.54(H) 0.5 - 1.4 mg/dL [facility] Estimated Glomerular Filt Rate 33 [facility] Comment:NOTE: For -Am erican individuals, multiply the result by 1.210.Chronic Kidney Disease: Estimated GFR < 60 mL/min/1.11q6Sstery Kidney Disease: Estimated GFR < 15 mL/min/1.73m2 08/03/2022 8:15 AM EST 08/03/2022 10:30 AM EST [facility] External Provider LAB BLO OD ORDERABLES Final Result Performing Organization Address [facility] Co de Phone Number [facility] [address] [place] [phone] * (ABNORMAL) BUN (Blood Urea Nitrogen) (08/03/2022 8:15 AM EST) Urea Nitrogen (BUN) 39(H) 9 - 16 mg/dL [facility] 08/03/2022 8:15 AM EST 08/03/2022 10:30 AM EST [facility] External Provider LAB BLO OD ORDERABLES Final Result Performing Organization Address [facility] Co de Phone Number [facility] [address] [place] [address] [phone] * (ABNORMAL) Electrolyte Panel (08/03/2022 8:15 AM EST) Sodium 140 135 - 145 mmol/L [facility] Potassium 5.5(H) 3.3 - 5.1 mmol/L [facility] Chloride 106 96 - 108 mmol/L [facility] Carbon Dioxide 28 22 - 29 mmol/L [facility] Anion Gap 12 12 - 20 [facility] 08/03/2022 8:15 AM EST 08/03/2022 10:30 AM EST [facility] External Provider LAB BLO OD ORDERABLES Final Result Performing Organization Address [facility] de Phone Number [facility] [address] [place] [address] [phone] documented in this encounter Visit Diagnoses Not on filedocumented in this encounter Care Teams Restrike Hammer Operator Relationship Specialty Start Date End Date Ventura Tavares MD [address] [place] [phone] PCP - General Internal Medicine 03/11/14 Garrison Silverio MD [address] [place] [address] Nephrology 11/29/24 documented as of this encounter
--- OUTSIDE RECORDS SUMMARY | 2025-04-17 15:24 | XMS_ITS | Clinical Summary ---
Author Organization [facility] Address [address] [place] [address] [address] [place] [phone] Phone Care Team Providers Care Distributed Generation Project Manager Name Role Phone Ventura Schulz MD Primary [...] patient's age to complete this topic [place] [address] ([id number]) [place] [id number] [place] [address] [facility] ([id number]) [place]ING[place] [id number] Care Teams Distributed Generation Project Manager Relationship Specialty Start Date End Date Ventura Schulz MD [address] [place] [address] PCP - General 08/04/20
--- OUTSIDE RECORDS SUMMARY | 2025-04-17 15:24 | XMS_ITS | Patient Health Record ---
Author Organization [facility] Address [address] [place] [address] Care Team Providers Care Java Jsf Developer Name Role Phone Zeus Maldonado MD, Ventura Primary Care Provide Castillo Cash Unavailable [phone] Allergies Allergen (clinical drug ingredient) Drug/Non Drug [...] for 30 days 10/13/2022 Active Vitamin D3 52070 UNIT 1 tablet Orally On ce a [...] W/U Status Risk Notes Problem Epigastric pain (96107934) Epigastric abdominal pain (R10.13) Active confirmed Problem [id number] Encounter for screening for malignant neoplasm of colon (Z12.11) Active confirmed Problem Screening for malignant neoplasm of rectum (689497932) Encounter for screening for malignant neoplasm of rectum (Z12.12) Active confirmed Problem 158722848 Long-term use of aspirin therapy (Z79.82) Active confirmed Problem 90676587 Constipation, unspecified constipation type (K59.00) Active confirmed Problem Gastroesophageal reflux disease (189368764) GERD (gastroesophage al reflux disease) (K21.9) Active confirmed Problem Chronic constipation (473101367) Constipation, chronic (K59.00) Active confirmed Plan Of [...] [facility] [address] [place] [phone] CARINE LOCKHART Self - patient is the insured Medical (General) History Medical History History ICD Code Screening colonoscopy 01/2005 and 08/2015--negative except for diverticulosis and internal hemorrhoids IDDM Hyperlipidemia Denies [place] CVA > 10 yrs ago Asthma Chronic kidney disease state III-Dr. Hall iesarah HTN GERD Surgical History Surgery Date(Month/Year) Appendectomy Tubal ligation KATHARINA Cataracts and lens implants
--- OUTSIDE RECORDS SUMMARY | 2025-04-17 15:24 | XMS_ITS | Encounter Summary ---
Author Organization [employer] Address [address] [place] [address] Care Team Providers Care Industrial Specialist Name Role Phone Ventura Tavares MD Primary Care Provide r Garrison Silverio MD Unavailable Reason for Visit * Reason Comments Med Refill Encounter Details Date Type Department Care Team ([facility] st Contact Info) Description 11/20/2024 Refill [facility] [address] [place] [address] Ventura Tavares MD [address] [place] [address] Pain Social History Tobacco Use Types Packs/Day [...] documented as of this encounter Care Teams Industrial Specialist Relationship Specialty Start Date End Date Ventura Tavares MD [address] [place] [address] PCP - General Internal Medicine 03/11/14 Garrison Silverio MD [address] [place] [address] Drive [address] [place] [phone] Nephrology 11/29/24 documented as of this encounter
--- OUTSIDE RECORDS SUMMARY | 2025-04-17 15:24 | XMS_ITS | Encounter Summary ---
Author Organization [email or web address] Address [address] [facility] [address]t [place] [address] Care Team Providers Care Microelectronics Technician Name Role Phone Ventura Tavares MD Primary Care Provide r Garrison Silverio MD Unavailable Reason for Visit * Reason Comments Med Refill Encounter Details Date Type Department Care Team (Late st Contact Info) Description 02/24/2023 Refill [facility] [address] [place] [address] Ventura Tavares MD [address] [place] [address] Pain Social History Tobacco Use Types Packs/Day [...] documented as of this encounter Care Teams Microelectronics Technician Relationship Specialty Start Date End Date Ventura Tavares MD [address] [place] [phone] PCP - General Internal Medicine 03/11/14 Garrison Silverio MD [address] [place] [address] [address] [place] [address] Nephrology 11/29/24 documented as of this encounter
--- OUTSIDE RECORDS SUMMARY | 2025-04-17 15:24 | XMS_ITS | Clinical Summary ---
Author Organization [employer] Address [address] [place] [address] 7[address] [place] [address] Care Team Providers Care Insulation Packer Name Role Phone Ventura Tavares MD Primary [...] appears bluish ,regular borders -referred today to utility worker driver Routine physical examination 04/19/2023 Assessment & Plan [...] Larry spoke with Dr. Cosme's office (her bowling pin refinisher), pt was seen 12/27/2023. We notified the office that her box inspector Dr. Silverio prescribes Lasix 20 mg 2 tabs po daily. Patient followed by Dr Cosme Shotgun Shell Reprinting Unit Operator, Previous Stress Test and ECHO unremarkable. Last seen 07/03/2024. Assessment & Plan (05/15/2024 1:05 PM EDT): Seen initially by Dr Demarcus Larry with c/o LE edema and elevated BNP, CXR was unermarkable. Dr. Larry spoke with Dr. Cosme's office (her bowling pin refinisher), pt was seen 12/27/2023. We notified the office that her box inspector Dr. Silverio prescribes Lasix 20 mg 2 tabs po daily. Patient followed by Dr Cosme Shotgun Shell Reprinting Unit Operator, Previous Stress Test and ECHO unremarkable. Last seen 12/27/2023. Assessment & Plan (09/22/2023 11:38 AM EST): Seen by Dr Demarcus Larry with c/o LE edema, referred to cardiology seen by Dr Cosme Shotgun Shell Reprinting Unit Operator, Stress Test and ECHO unremarkable Assessment & Plan (01/18/2023 10:50 AM EDT): Seen by Dr Demarcus Larry with c/o LE edema, referred to cardiology seen by Dr Cosme 01/06/2023 ECHO ordered [facility] care 01/18/2023 Assessment & Plan [...] 2:14 PM EST): Seeing Trinh Su at [facility] Hyperlipidemia 04/06/2012 Assessment & Plan (12/04/2024 [...] Plan: As per Endocrinology Eye exam with [facility] 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 [...] Plan: As per Endocrinology Eye exam with [facility] diagnosed with Dr. both eyes. Last seen 12/06/2023 Pt does not adhere to a diabetic diet, does not want to go any higher on her insulin dose as it was recommended by her Blast Furnace Tender. 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 Last seen 12/06/2023 Pt does not adhere to a diabetic diet, does not want to go any higher on her insulin dose as it was recommended by her Blast Furnace Tender. Pt advised to Adhere to diabetic diet [...] 81 mg po daily. 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 Pt advised to Adhere to diabetic diet [...] 81 mg po daily. 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 Pt advised to Adhere to diabetic diet [...] 81 mg po daily. 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 Pt advised to Adhere to diabetic diet [...] 81 mg po daily. 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 Pt advised to Adhere to diabetic diet [...] 81 mg po daily. 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 Pt advised to Adhere to diabetic diet [...] Encounters Date Type Department Care Team Description 04/16/2025 Orders Only GENERIC EXTERNAL DATA DEPARTMENT Provider, Generic External Data 04/05/2025 Orders Only GENERIC EXTERNAL DATA DEPARTMENT Provider, Generic External Data 02/27/2025 Refill [facility]INE [address] [place] [address] Ventura Tavares MD Pain 02/21/2025 Results Follow-Up [facility] [address] [place] [address] Ventura Tavares MD CBC auto differential, Comprehensive Metabolic Panel, Lipase, Additional followed-up results: 4 02/13/2025 Orders Only GENERIC EXTERNAL DATA DEPARTMENT Provider, Generic External Data 02/11/2025 Refill [facility] [address] [place] [address] Ventura Tavares MD Primary hypertension from Last [...] Procedure Name Priority Date/Time Associated Diagnosis Comments CALCIUM Routine 04/16/2025 9:01 AM EDT CREATININE, SERUM Routine 04/16/2025 9:0 1 AM EDT UREA NITROGEN (BUN) Routine 04/16/2025 9 :01 AM EDT ELECTROLYTE PANEL Routine 04/16/2025 9:0 1 AM EDT GLUCOSE, WHOLE BLOOD Routine 04/05/2025 8:46 AM [...] disease, with long-term current use of insulin ([facility]) LIPID PANEL, STANDARD Routine 11/29/2024 8:20 AM EDT Mixed hyperlipidemia BI MAMMOGRAM SCREENING TOMOSYNTHESIS BILATERAL Routine 10/24/2023 12:40 PM EDT HM COLONOSCOPY Routine 09/01/2015 from Last 3 Months or Most Recently Relevant to Health Maintenance Results * (ABNORMAL) Creatinine, Serum (04/16/2025 9:01 AM EDT) Creatinine, Serum 1.68(H) 0.5 - 1.4 mg/dL [facility] Estimated Glomerular Filt Rate 30 [facility] Comment:Chronic Kidney Disea se: Estimated GFR < 60 mL/min/1.57f3Nqehlc Kidney Disease: Estimated GFR < 15 mL/min/1.73m2 04/16/2025 9:01 AM EDT 04/16/2025 11:26 AM EDT us Generic External Data Provider LAB BLOOD ORDERAB LES Final Result [facility] [address] [place] [phone] * (ABNORMAL) BUN (Blood Urea Nitrogen) (04/16/2025 9:01 AM EDT) Urea Nitrogen (BUN) 45(H) 9 - 16 mg/dL [facility] 04/16/2025 9:01 AM EDT 04/16/2025 11:26 AM EDT Generic External Data Provider LAB BLOOD ORDERAB LES Final Result Performing Organization Address [facility] de Phone Number [facility] [address] [place] [phone] * Calcium (04/16/2025 9:01 AM EDT) Pathologist [facility] Calcium 9.1 8.4 - 10.2 mg/dL [facility] 04/16/2025 9:01 AM EDT 04/16/2025 11:26 AM EDT Generic External Data Provider LAB BLOOD ORDERAB LES Final Result Performing Organization Address [facility] Phone Number [facility] [address] [place] [phone] * (ABNORMAL) Electrolyte Panel (04/16/2025 9:01 AM EDT) [facility] Sodium 142 135 - 145 mmol/L [facility] Potassium 5.5(H) 3.3 - 5.1 mmol/L [facility] Chloride 108 96 - 108 mmol/L [facility] Carbon Dioxide 28 22 - 29 mmol/L [facility] Anion Gap 12 12 - 20 [facility] 04/16/2025 9:01 AM EDT 04/16/2025 11:26 AM EDT Generic External Data Provider LAB BLOOD ORDERAB LES Final Result Performing Organization Address [facility] de Phone Number [facility] [address] [place] [phone] * Glucose, Whole Blood (04/05/2025 8:46 AM EDT) Glucose, Whole Blood 90 60 - 115 mg/dL [facility] Comment:METER #: [id number] 0Testing performed in the Endocrinology Department [address] , [address], [facility]. 04/05/2025 8:46 AM EDT 04/05/2025 8:50 AM EDT us Generic External Data Provider LAB BLOOD ORDERAB LES Final Result Performing Organization Address [facility] Co de Phone Number [facility] [address] [place] [phone] * (ABNORMAL) Urinalysis, Complete, with Reflex to Culture (02/13/2025 3:18 PM EDT) Color Urine Yellow [facility] Appearance Urine Clear [facility] PH 5.5 5.0 - 9.0 [facility] Glucose Urine UA >=1000(A) Negative mg/dL [facility] Urine Blood Negative Negative [facility] Specific [place] - Urine 1.020 1.005 - 1.025 [facility] Urine Protein Trace Neg-Trace mg/dL [facility] Urine Ketones Negative Negative mg/dL [facility] Nitrite Urine Negative Negative [facility] Leukocyte Esterase Urine Negative Negative [facility] RBC Urine 0-2 0 - 2 /HPF [facility] Urine WBC 0-5 0 - 5 /HPF [facility] Urine Squamous Epithelial Cell 0-2 0 - 2 /HPF [facility] Urine Bacteria None Seen None Seen [facility] Hyaline Casts, Urine 0-2 0 - 2 /LPF [facility] 02/13/2025 3:18 PM EDT 02/13/2025 3:21 PM EDT Narrative [facility] - 02/13/2025 3:56 PM EDT Urine, Clean Catch us Generic External Data Provider LAB URINE ORDERAB LES Final Result Performing Organization Address [facility]/ZIP Co de Phone Number [facility] [address] [place] [phone] [phone] * (ABNORMAL) Bacterial Vaginosis (02/13/2025 3:07 PM EDT) Pathologist [facility] TRICHOMONAS VAGINALIS DETECTION BY PCR NOT DETECTED Not Detect [facility] BACTERIAL VAGINOSIS DETECTION BY PCR POSITIVE(A) Negative [facility] Comment:The BV organism targ ets [...] DETECTION BY PCR NOT DETECTED Not Detect [facility] Celestina glab krusei PCR NOT DETECTED Not Detect [facility] 02/13/2025 3:07 PM EDT 02/13/2025 3:17 PM EDT Generic External Data Provider LAB MICROBIOLOGY - GENERAL ORDERABLES Final Result [facility] [address] [place] [phone] * Chlamydia/N. Gonorrhoeae RNA, TMA, Urogenitial (02/13/2025 3:07 PM EDT) Pathologist [facility] CT PCR NOT DETECTED Not Detect. [facility] Comment:A not detected test result [...] psychologicalconsequences. NG PCR NOT DETECTED Not Detect. [facility] Comment:A not detected test result [...] GENERAL ORDERABLES Final Result Performing Organization Address City/[facility]/ZIP Co de Phone Number [facility] [address] [place] [phone] * Wet prep, genital (02/13/2025 3:07 PM EDT) Vaginal Fluid Vaginal structure / Unknown 02/13/2025 3:07 PM EDT 02/13/2025 3:17 PM EDT Comment:Vaginal Narrative [facility] - 02/13/2025 3:26 PM EDT Trichomonas Prep Direct Microscopic Exam Trichomonas Prep No trichomonads or yeast seen Specimen Source: Vaginal Generic External Data Provider LAB MICROBIOLOGY - GENERAL ORDERABLES Final Result Performing Organization Address City/[facility]/ZIP Co de Phone Number [facility] [address] [place] [phone] * CT Abdomen Pelvis w/o Contrast (02/13/2025 2:29 PM EDT) Anatomical Region Laterality Modality Body, Pelvis, Abdomen Computed T omography 02/13/2025 2:29 PM EDT Narrative 02/13/2025 3:57 PM EDT [address] [address] [address] Scan Report Signed Patient: Sindi Obrien MR#: Roby [id number] : 1950 Acct:[id number] Age/Sex: 74 / F ADM Date: 02/13/25 Loc: HO.ED Attending Dr: Ordering Physician: Airam Acevedo Date of Service: 02/13/25 Procedure(s): CT abdomen pelvis wo IV con Accession Number(s): [id number] cc: Ventura Shi MD; Airam Acevedo Report Number: [id number]: Total DLP = 505.00 mGy-cm EXAMINATION: CT [...] 02/13/25 1553 DD/ 1429 TD/TT: 02/13/25 1538 Delivery Person: Procedure Note Donotuseinterpreter, Image - 02/13/[address] [address] [address] Scan Report Signed Patient: Sindi ObrienMR#: M [id number] : 2Acct:[id number] Age/Sex: 74 / FADM Date: 02/13/25 Loc: HO.ED Attending Dr: Ordering Physician: Airam Acevedo Date of Service: 02/13/25 Procedure(s): CT abdomen pelvis wo IV con Accession Number(s): [id number] cc: Ventura Shi MD; Airam Acevedo Report Number: [id number]: Total DLP = 505.00 mGy-cm EXAMINATION: CT [...] 02/13/25 1553 DD/ 1429 TD/TT: 02/13/25 1538 Delivery Person: [facility] External Provider IMG CT PROCEDURES Final Result * (ABNORMAL) CBC auto differential (02/13/2025 1:44 PM EDT) White Blood Count 6.1 4.8 - 10.8 X10*3/uL [facility] Red Blood Count 3.59(L) 4.20 - 5.50 X10*6/uL [facility] Hemoglobin 11.3(L) 12.0 - 16.0 g/dl [facility] Hematocrit 33.9(L) 37.0 - 47.0 % [facility] Mean Corpuscular Volume 94.4 80.0 - 98.0 fL [facility] Mean Corpuscular Hemoglobin 31.5 27.0 - 33.0 pg [facility] Mean Corpuscular HGB Conc 33.3 31.0 - 35.0 g/dl [facility] Red Cell Distribution Width 11.9 11.0 - 16.0 % [facility] Platelet Count 184 160 - 400 X10*3/uL [facility] Mean Platelet Volume 10.2 9.4 - 12.3 fL [facility] Neutrophils Percent Auto 65.4 45 - 73 % [facility] Imm Gran Pct Auto 0.2 0.0 - 0.4 % [facility] Lymphocytes Percent Auto 19.8(L) 20 - 40 % [facility] Monocytes Percent Auto 7.8 2 - 11 % [facility] Eosinophils Percent Auto 6.3(H) 0 - 4 % [facility] Basophils Percent Auto 0.5 0 - 2 % [facility] NRBC Pct Auto 0.0 0.0 - 0.2 /100WBC [facility] Neutrophils Absolute Auto 4.0 2.0 - 8.3 x10*3/uL [facility] Imm Gran Abs Auto 0.01 0.00 - 0.03 X10*3/uL [facility] Lymphocytes Absolute Auto 1.2 1.2 - 4.9 X10*3/uL [facility] Monocytes Absolute Auto 0.5 0.1 - 1.2 X10*3/uL [facility] Eosinophils Absolute Auto 0.4 0.0 - 0.4 X10*3/uL [facility] Basophils Absolute Auto 0.0 0.0 - 0.2 X10*3/uL [facility] NRBC Abs Auto 0.000 0.0 - 0.012 X10*3/uL [facility] 02/13/2025 1:44 PM EDT 02/13/2025 1:48 PM EDT us Generic External Data Provider LAB BLOOD ORDERAB LES Final Result [facility] [address] [place], [place] [phone] * Lipase (02/13/2025 1:44 PM EDT) Lipase 28 8 - 78 U/L [facility] 02/13/2025 1:44 PM EDT 02/13/2025 1:48 PM EDT us Generic External Data Provider LAB BLOOD ORDERAB LES Final Result [facility] [address] [place] [phone] * (ABNORMAL) Comprehensive Metabolic Panel (02/13/2025 1:44 PM EDT) Sodium 142 135 - 145 mmol/L [facility] Potassium 5.0 3.3 - 5.1 mmol/L [facility] Chloride 108 96 - 108 mmol/L [facility] Carbon Dioxide 28 22 - 29 mmol/L [facility] Anion Gap 11(L) 12 - 20 [facility] Urea Nitrogen (BUN) 35(H) 9 - 16 mg/dL [facility] Creatinine, Serum 1.72(H) 0.5 - 1.4 mg/dL [facility] Creatinine Clr Calc Pharmacy 21.4 [facility] Comment:Provided height and weight: 134.62 cm,72.4 kg.eGFR (calculated from the MDRD study equation) and eCrCl(calculated from the Cockcroft-Gault equation) are based ondifferent parameters and may not yield comparable results.If eCrCl result is absurd, please check patient'sheight/weight. Estimated Glomerular Filt Rate 29 [facility] Comment:Chronic Kidney Disea se: Estimated GFR < 60 mL/min/1.35d3Ddusac Kidney Disease: Estimated GFR < 15 mL/min/1.73m2 Glucose 194(H) 60 - 115 mg/dL [facility] Calcium 9.0 8.4 - 10.2 mg/dL [facility] Bilirubin, Total 0.3 0.0 - 1.0 mg/dL [facility] Aspartate Amino Transferase 23 5 - 31 U/L [facility] Alanine Aminotransferase 32(H) 0 - 31 U/L [facility] Total Protein 7.1 6.5 - 8.0 g/dL [facility] Albumin Level 4.0 3.5 - 5.0 g/dL [facility] Alkaline Phosphatase 145(H) 39 - 117 U/L [facility] 02/13/2025 1:44 PM EDT 02/13/2025 1:48 PM EDT us Generic External Data Provider LAB BLOOD ORDERAB LES Final Result [facility] [address] [place] [phone] * (ABNORMAL) POCT HGB A1C (12/04/2024 10:30 AM EDT) Hemoglobin A1C 8.1(A) 4.0 - 6.0 % QC Media Lot # [id number] Lot# Expiration Date Blood 12/04/2024 10:3 0 AM EDT us Ventura Maldonado MD POINT OF CARE TEST EN TER/EDIT ORDERABLES Final Result * Lipid Panel, Standard (11/29/2024 8:20 AM EDT) Triglycerides 56 <150 mg/dL [facility] Comment:Desirable Triglyceri de: less than 150 mg/dLBorderline High Triglyceride 150-199 mg/dLHigh Triglyceride: 200-499 mg/dLVery High Triglyceride: greater than or equal to 5OO mg/dL Cholesterol 131 <200 mg/dL [facility] Comment:Desirable Cholestero l: less than 200 mg/dLBorderline High Cholesterol: 200-239 mg/dLHigh Cholesterol: greater than 239 mg/dL LDL Cholesterol Calculated 54 <100 mg/dL [facility] Comment:Desirable LDL: less than 100 mg/dLNear Optimal/Above Optimal LDL: 110- 129 mg/dLBorderline High LDL: 130-159 mg/dLHigh LDL: 160-189 mg/dLVery High LDL: greater than or equal to 190 mg/dL HDL Cholesterol 66 >40 mg/dL [facility] Comment:Desirable HDL: great er than 40 mg/dL Note: This HDL assay may give artificially low results in patients with liver disease. Blood Venous blood specimen / Unknown 11/29/2024 8:20 AM EDT 11/29/2024 11:12 AM EDT us Ventura Maldonado MD LAB BLOOD ORDERABLES Final Result [facility] [address] [place] [phone] * BI Mammogram Screening Tomosynthesis Bilateral (10/24/2023 12:40 PM EDT) Anatomical Region Laterality Modality Breast Bilateral Mammography 10/24/2023 12:4 0 PM EDT Narrative 11/06/2023 3:28 PM EDT [address] [place] [address] Mammography Report Signed Patient: Sindi Obrien MR#: [id number] : 1950 Acct:[id number] Age/Sex: 72 / F ADM Date: 10/24/23 Loc: HO.MAMMO Attending Dr: Ventura Shi MD Ordering Physician: Ventura Shi MD Resu lts: 2Benign Findings Date of Service: 10/24/23 Follow Up: 1 Year From [facility] Mammogram Procedure(s): MM tomosynthesis screening BI Accession Number(s): [id number] cc: Ventura Shi MD EXAMINATION: MM SCREENING [...] in OV> 11/06/23 1525 DD/ 1240 TD/TT: Delivery Person: Procedure Note Donotuseinterpreter, Image - 11/06/2023 [facility] [address] [place] [address] Mammography Report Signed Patient: Sindi Obrien#: M [id number] : 2Acct:[id number] Age/Sex: 72 / FADM Date: 10/24/23 Loc: HO.MAMMO Attending Dr: Ventura Shi MD Ordering Physician: Ventura Shi MDResu lts: 2Benign Findings Date of Service: 10/24/23Follow Up: 1 Year From Orig inal Mammogram Procedure(s): MM tomosynthesis screening BI Accession Number(s): [id number] cc: Ventura Shi MD EXAMINATION: MM SCREENING [...] in OV> 11/06/23 1525 DD/ 1240 TD/TT: Delivery Person: Ventura Maldonado MD IMG BI PROCEDURES Ortiz cesar Result - Final * Colonoscopy (09/01/2015) Colonoscopy Normal Normal 09/01/2015 Brittany Patel - 09/01/2015 11:54 AM EST Recommended 10 year follow up Historical Provider HEALTH MAINTENANCE Edited Result - Final from Last 3 Months or Most Recently [place]vant [place] [id number] [facility] HALF-WAY OPTIONS (O D-SNP) [employer] [id number] Care Teams Insulation Packer Relationship Specialty Start Date End Date Ventura Tavares MD [address] [place] [phone] PCP - General Internal Medicine 03/11/14 Garrison Silverio MD [address] [place] [address] Drive [address] [place] [address] Nephrology 11/29/24
--- OUTSIDE RECORDS SUMMARY | 2025-04-17 15:24 | XMS_ITS | Encounter Summary ---
Author Organization [employer] Address [address] [place] [address] Care Team Providers Care Pest Technician Name Role Phone Ventura Tavares MD Primary Care Provide r Garrison Silverio MD Unavailable Encounter Details Date Type Department Care Team (Late st Contact Info) Description 12/01/2022 Abstract [facility] MEDICINE [address] [place] [address] Ventura Tavares MD [address] [place], [place] [phone] Social History Tobacco Use Types Packs/Day Years [...] on filedocumented in this encounter Care Teams Pest Technician Relationship Specialty Start Date End Date Ventura Tavares MD [address] [place] [phone] PCP - General Internal Medicine 03/11/14 Garrison Silverio MD [address] [place] [address] [address] [place] [address] Nephrology 11/29/24 documented as of this encounter
--- OUTSIDE RECORDS SUMMARY | 2025-04-17 15:24 | XMS_ITS | Encounter Summary ---
Author Organization [employer] Address [address] [place] [address] Care Team Providers Care Auto Transmission Technician Name Role Phone Ventura Tavares MD Primary Care Provide r Garrison Silverio MD Unavailable Encounter Details Date Type Department Care Team (Late st Contact Info) Description 01/04/2023 Orders Only [facility] [address] [place] [phone] Aime Bland MD [address] [place], [place] [phone] Dyspnea, unspecified type (Primary Dx) Social History [...] PM EDT Narrative 01/04/2023 2:57 PM EDT [address] [address] XRay Report Signed Patient: Sindi Obrien MR#: M [id number] : 1950 Acct:[id number] Age/Sex: 72 / F ADM Date: 01/04/23 Loc: HO.HHCX Attending Dr: Aime Bland MD Ordering Physician: AIME BLAND MD Date of Service: 01/04/23 Procedure(s): XR chest 2V Accession Number(s): [id number] cc: AIME BLAND MD EXAMINATION: XR CHEST [...] in OV> 01/04/23 1454 DD/ 1420 TD/TT: Taxonomist: HERSON Procedure Note Donotuseinterpreter, Image - 01/19/[address] [address] XRay Report Signed Patient: Sindi ObrienMR#: M [id number] : 1950cct:[id number] Age/Sex: 72 / FADM Date: 01/04/23 Loc: HO.HHCX Attending Dr: Aime Bland MD Ordering Physician: AIME BLAND MD Date of Service: 01/04/23 Procedure(s): XR chest 2V Accession Number(s): [id number] cc: AIME BLAND MD EXAMINATION: XR CHEST [...] in OV> 01/04/23 1454 DD/ 1420 TD/TT: Taxonomist: HERSON [facility] External Provider IMG XR PROCEDURES Final Result documented in this encounter Visit Diagnoses Diagnosis Dyspnea, unspecified type- Primary documented in this encounter Additional Health Concerns Assessment Noted Time PHQ-9 Depression Total Score: 12 023 10:55 AM EDT documented as of this encounter Care Teams Auto Transmission Technician Relationship Specialty Start Date End Date Ventura Tavares MD [address] [place] [phone] PCP - General Internal Medicine 03/11/14 Garrison Silverio MD [address] [place] [address] [address] [place] [phone] Nephrology 11/29/24 documented as of this encounter
--- OUTSIDE RECORDS SUMMARY | 2025-04-17 15:24 | XMS_ITS | Encounter Summary ---
Author Organization [employer] Address [address] [facility] [address] 7t [place] [address] Care Team Providers Care Marble And Granite Polisher Name Role Phone Ventura Tavares MD Primary Care Provide r Garrison Silverio MD Unavailable Encounter Details Date Type Department Care Team (Late st Contact Info) Description 04/07/2023 Telephone [facility] [address] [place] [address] Ventura Tavares MD 230 [place] [address] Social History Tobacco Use Types Packs/Day Years [...] documented as of this encounter Care Teams Marble And Granite Polisher Relationship Specialty Start Date End Date Ventura Tavares MD [address] [place] [address] PCP - General Internal Medicine 03/11/14 Garrison Silverio MD [address] [place] [address] [address] [place] [address] Nephrology 11/29/24 documented as of this encounter
--- OUTSIDE RECORDS SUMMARY | 2025-04-17 15:24 | XMS_ITS | Encounter Summary ---
Author Organization [employer] Address [address] [facility] [address] 7t [place] [address] Care Team Providers Care R D Internship Name Role Phone Ventura Tavares MD Primary Care Provide r Garrison Silverio MD Unavailable Encounter Details Date Type Department Care Team (Late st Contact Info) Description 03/02/2023 Orders Only [facility] MED & PEDS [address] [place] [address] Terra Hannon LPN Social History Tobacco Use [...] documented as of this encounter Care Teams R D Internship Relationship Specialty Start Date End Date Ventura Tavares MD [address] [place] [address] PCP - General Internal Medicine 03/11/14 Garrison Silverio MD [address] [place] [address] [place] [address] Nephrology 11/29/24 documented as of this encounter
--- OUTSIDE RECORDS SUMMARY | 2025-04-17 15:24 | XMS_ITS | Encounter Summary ---
Author Organization [employer] Address 75 [facility] 7t [place] [address] Care Team Providers Care Teacher Cclc Name Role Phone Ventura Tavares MD Primary Care Provide r Garrison Silverio MD Unavailable Encounter Details Date Type Department Care Team (Late st Contact Info) Description 04/16/2025 Orders Only GENERIC EXTERNAL DATA [...] Procedure Name Priority Date/Time Associated Diagnosis Comments CREATININE, SERUM Routine 04/16/2025 9:0 1 AM EDT UREA NITROGEN (BUN) Routine 04/16/2025 9 :01 AM EDT CALCIUM Routine 04/16/2025 9:01 AM EDT ELECTROLYTE PANEL Routine 04/16/2025 9:0 1 AM EDT documented in this encounter Results * Calcium (04/16/2025 9:01 AM EDT) Calcium 9.1 8.4 - 10.2 mg/dL [facility] 04/16/2025 9:01 AM EDT 04/16/2025 11:26 AM EDT us Generic External Data Provider LAB BLOOD ORDERAB LES Final Result [facility] [address] [place] [phone] * (ABNORMAL) Creatinine, Serum (04/16/2025 9:01 AM EDT) Creatinine, Serum 1.68(H) 0.5 - 1.4 mg/dL [facility] Estimated Glomerular Filt Rate 30 [facility] Comment:Chronic Kidney Disea se: Estimated GFR < 60 mL/min/1.29e7Zdijve Kidney Disease: Estimated GFR < 15 mL/min/1.73m2 04/16/2025 9:01 AM EDT 04/16/2025 11:26 AM EDT us Generic External Data Provider LAB BLOOD ORDERAB LES Final Result Performing Organization Address [facility] de Phone Number [facility] [address] [place] [phone] * (ABNORMAL) BUN (Blood Urea Nitrogen) (04/16/2025 9:01 AM EDT) Urea Nitrogen (BUN) 45(H) 9 - 16 mg/dL [facility] 04/16/2025 9:01 AM EDT 04/16/2025 11:26 AM EDT us Generic External Data Provider LAB BLOOD ORDERAB LES Final Result Performing Organization Address [facility] Phone Number [facility] [address] [place] [phone] * (ABNORMAL) Electrolyte Panel (04/16/2025 9:01 AM EDT) Sodium 142 135 - 145 mmol/L [facility] Potassium 5.5(H) 3.3 - 5.1 mmol/L [facility] Chloride 108 96 - 108 mmol/L [facility] Carbon Dioxide 28 22 - 29 mmol/L [facility] Anion Gap 12 12 - 20 [facility] 04/16/2025 9:01 AM EDT 04/16/2025 11:26 AM EDT us Generic External Data Provider LAB BLOOD ORDERAB LES Final Result Performing Organization Address [facility] de Phone Number [facility] [address] [place] [phone] documented in this encounter Visit Diagnoses Not on filedocumented in this encounter Additional Health Concerns Assessment Noted Time PHQ-9 Depression Total Score: 0 05/15/20 10:57 AM EDT documented as of this encounter Care Teams Teacher Cclc Relationship Specialty Start Date End Date Ventura Tavares MD [address] [place] [address] PCP - General Internal Medicine 03/11/14 Garrison Silverio MD [address] [place] [address] [address] [place] [address] Nephrology 11/29/24 documented as of this encounter
--- OUTSIDE RECORDS SUMMARY | 2025-04-17 15:24 | XMS_ITS | Encounter Summary ---
Author Organization [employer] Address 75 [facility] 7t [place] [address] Care Team Providers Care Electronics Installer Name Role Phone Ventura Tavares MD Primary Care Provide r Garrison Silverio MD Unavailable Encounter Details Date Type Department Care Team (Late st Contact Info) Description 09/20/2022 Orders Only [facility] CH[facility] MED & PEDS [address] [place] [address] Terra Hannon LPN Social History Tobacco Use [...] on filedocumented in this encounter Care Teams Electronics Installer Relationship Specialty Start Date End Date Ventura Tavares MD [address] [place] [address] PCP - General Internal Medicine 03/11/14 Garrison Silverio MD [address] [place] [address] Drive [address] [place] [address] Nephrology 11/29/24 documented as of this encounter
--- OUTSIDE RECORDS SUMMARY | 2025-04-17 15:25 | XMS_ITS | Encounter Summary ---
Author Organization [employer] Address [address] [facility] [address] 7t [place] [address] Care Team Providers Care Mainframe Systems Engineer Name Role Phone Ventura Tavares MD Primary Care Provide r Garrison Silverio MD Unavailable Encounter Details Date Type Department Care Team (Late st Contact Info) Description 07/05/2023 Telephone [facility]ICINE [address] [place] [address] Ventura Tavares MD 230 [place], [place] [phone] Social History Tobacco Use Types Packs/Day Years [...] 07/05/2023 2:11 PM EST Tc from farzad (SECURITY MANAGER) with [facility] calling to advise provider, a home assessment was done on behalf of CCAand pt A1C came out to be 10.8 Any questions, contact Farzad at [phone] documented in this encounter Plan of Treatment Not on file documented as of this encounter Visit Diagnoses Not on filedocumented in this encounter Additional Health Concerns Assessment Noted Time PHQ-9 Depression Total Score: 12 023 10:55 AM EDT documented as of this encounter Care Teams Mainframe Systems Engineer Relationship Specialty Start Date End Date Ventura Tavares MD [address] [place] [address] PCP - General Internal Medicine 03/11/14 Garrison Silverio MD [address] [place] [address] Nephrology 11/29/24 documented as of this encounter
== END 2025-04-17 12:58 | disposition home or self-care (01) ==
LOC: HO.MAMMO 12:57
PROVIDERS: PCP Internal Medicine; Visit Provider Internal Medicine
DX: Z12.31 Encounter for screening mammogram for malignant neoplasm of breast (principal); I12.9 Hypertensive chronic kidney disease with stage 1 through stage 4 chronic kidney disease, or unspecified chronic kidney disease; E11.22 Type 2 diabetes mellitus with diabetic chronic kidney disease; N18.30 Chronic kidney disease, stage 3 unspecified; E11.21 Type 2 diabetes mellitus with diabetic nephropathy; E87.5 Hyperkalemia
CPT/HCPCS: 77063; 77067; 99212

== ENCOUNTER → 2025-04-17 13:00 | Outpatient (BNV) | payer OTHER, SELFPAY | PROVIDERS: PCP Internal Medicine; Visit Provider Radiology Body Imaging | DX: Z12.31 Encounter for screening mammogram for malignant neoplasm of breast (principal) | CPT/HCPCS: 77063; 77067 ==

== ENCOUNTER 2025-04-17 14:00 | Outpatient (AMB) | payer OTHER, SELFPAY ==
--- NOTE | 2025-04-17 14:06 | HO.NEPHOV_ITS ---
Vital Signs 04/17/25 14:08 Height 5 ft 5 in Weight 160 lb BMI 26.6 BP 140/60 H Blood Pressure Location Lt brachial Position Sitting Pulse 66 Pulse Source Pulse Oximeter Pulse Oximetry (%) 97 Oxygen Delivery Method Room Air Intake Visit Reasons: 2mon f/u w/labs-Conf Customer Service Cashier Required: Yes Customer Service Cashier Language: Machine Worker Services: Customer Service Cashier Offered & Declined ([facility] Customer Service Cashier services refused) Accompanied by: Daughter Allergies metformin (From GLUCOPHAGE) Adverse Reaction (Unknown, Verified 04/17/25 14:07) DIARRHEA HPI Comments Details: Sindi was seen in follow-up of her chronic kidney disease due to biopsy-proven diabetic nephropathy. Her blood sugar control has been better with weight loss on Trulicity.. She has history of cerebrovascular accident. She has hypertension. She had no deficits from CVA. Blood pressure is better controlled. She has not good with her diet and weight loss. She denies using any nonsteroidal anti-inflammatories but consumes normal sodium and has a normal diet. she was on angiotensin receptor claude in the past which she did not tolerate very well. She denies chest pain, shortness of breath, paroxysmal nocturnal dyspnea, orthopnea, pedal edema, urinary symptoms or orthostasis. She tries to maintain herself with good hydration. She has been having facial swelling and pedal edema which resolved with diuresis. She is not very compliant with low sodium diet. She had been on losartan which has been put on hold since she has been having hyperkalemia. She has not been taking Kayexalate once a week. REPLACED BY [facility] Medical History Snoring Dyspnea on exertion PB (obstructive sleep apnea) Hypoxemia Breast calcification, right Obesity due to excess calories Peripheral nerve facial nerve paralysis History of CVA (cerebrovascular accident) GERD (gastroesophageal reflux disease) Asthma Morbid obesity Hypertension CKD stage 3 due to type 2 diabetes mellitus MCFP (current) use of insulin Diabetic nephropathy associated with type 2 diabetes mellitus Dyslipidemia Diabetes type 2, uncontrolled Surgical History Hx of tubal ligation Hx of bilateral cataract extraction Hx of hysterectomy History of appendectomy Family History Father Cancer Mother Diabetes mellitus Social History Household Members: None Housing: Apartment Do you presently have visiting nurse or other home services: Yes Alcohol intake: never Patient Tobacco Use Status: Never used Tobacco Second Hand Smoke Exposure: No Advance Directives Date on File: 11/26/20 service: No Current occupational status: disabled Current occupation: rt handed Female Reproductive History Menstrual Age of Menarche: 12 Review of Systems Const All systems reviewed & are unremarkable except as noted in HPI and below Physical Exam Vital Signs: Last Vital Signs Pulse 66 04/17/25 14:08 BP 140/60 H 04/17/25 14:08 Pulse Ox 97 04/17/25 14:08 Oxygen Delivery Method Room Air 04/17/25 14:08 BMI result Body Mass Index 26.6 Const General: comfortable and no acute distress Orientation/consciousness: patient oriented x3 HEENT Head: Yes normocephalic Mouth: Normal oral and palatal mucosa present Eyes EOM: EOMs intact bilaterally Neck Neck: Yes supple Resp Auscultation: clear to auscultation bilaterally Cardio Jugular venous distension: no JVD Rate: regular rate GI Palpation (GI): Soft to palpation Auscultation: normal bowel sounds General: Yes no CVA tenderness Back/Spine/Pelvis Back: no CVA tenderness Skin General skin exam: no rashes or lesions noted Neuro General: patient oriented x3 and moves all extremities Extrem General: Yes no pedal edema Results Reviewed Nephrology Results: Hgb, (12.0-16.0) 11.3 g/dl L 02/13/25 WBC, (4.8-10.8) 6.1 X10*3/uL 02/13/25 Plt Count, (160-400) 184 X10*3/uL 02/13/25 Sodium, (135-145) 142 mmol/L 04/16/25 Potassium, (3.3-5.1) 5.5 mmol/L H 04/16/25 Chloride, (96-108) 108 mmol/L 04/16/25 Carbon Dioxide, (22-29) 28 mmol/L 04/16/25 BUN, (9-16) 45 mg/dL H 04/16/25 Creatinine, (0.5-1.4) 1.68 mg/dL H 04/16/25 Calcium, (8.4-10.2) 9.1 mg/dL 04/16/25 Urine Protein, (Neg-Trace) Trace mg/dL 02/13/25 Assessment & Plan Assessment & Plan (1) Diabetic nephropathy associated with type 2 diabetes mellitus: Code(s): E11.21 - Type 2 diabetes mellitus with diabetic nephropathy Category: Medical (2) CKD stage 3 due to type 2 diabetes mellitus: Code(s): E11.22 - Type 2 diabetes mellitus with diabetic chronic kidney disease; N18.30 - Chronic kidney disease, stage 3 unspecified Category: Medical (3) Hypertension: Code(s): I10 - Essential (primary) hypertension Category: Medical Qualifiers: Hypertension type: primary hypertension Qualified Code(s): I10 - Essential (primary) hypertension (4) Hyperkalemia: Code(s): E87.5 - Hyperkalemia Category: Medical Plan Sindi has 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 Her renal biopsy in the past showed significant disease from diabetes and hypertension. She had been off angiotensin receptor claude now, since she had hyperkalemia. I plan to restart it later. She should be on a low-potassium diet. She should continue Jardiance 25 mg daily . She needs to increase hydration. She should maintain a tighter blood sugar control. She should cut back sodium in the diet and lose weight. She should maintain good hydration and avoid nonsteroidal anti-inflammatories. I increased her Kayexalate to 30 Gram twice a week for now. I have ordered follow up blood work. Follow up appointment given Orders: Orders Creatinine 6 Weeks E11.21 - Type 2 diabetes mellitus with diabetic nephropathy, E11.22 - Type 2 diabetes mellitus with diabetic chronic kidney disease, E87.5 - Hyperkalemia, I10 - Essential (primary) hypertension, N18.30 - Chronic kidney disease, stage 3 unspecified Blood Urea Nitrogen 6 Weeks E11.21 - Type 2 diabetes mellitus with diabetic nephropathy, E11.22 - Type 2 diabetes mellitus with diabetic chronic kidney disease, E87.5 - Hyperkalemia, I10 - Essential (primary) hypertension, N18.30 - Chronic kidney disease, stage 3 unspecified Electrolytes 6 Weeks E11.21 - Type 2 diabetes mellitus with diabetic nephr opathy, E11.22 - Type 2 diabetes mellitus with diabetic chronic kidney disease, E87.5 - Hyperkalemia, I10 - Essential (primary) hypertension, N18.30 - Chronic kidney disease, stage 3 unspecified Medications: Changed From sodium polystyrene sulfonate 30 grams PO .once a week 453.6 grams 4RF To sodium polystyrene sulfonate 30 grams orally twice a week; 453.6 grams 4RF Coding Level of Care Code Est Pt Level 4 (01234) Diagnoses Diabetic nephropathy associated with type 2 diabetes mellitus E11.21 CKD stage 3 due to type 2 diabetes mellitus E11.22; N18.30 Primary hypertension I10 Hypertension type: primary hypertension Hyperkalemia E87.5
[2025-04-17 14:08] VITALS: BP 140/60; PULSE 66; O2SAT 97; BMI 26.6
== END 2025-04-17 14:34 | disposition home or self-care (01) ==
LOC: HO.HKA 14:01
PROVIDERS: PCP Internal Medicine; Visit Provider Internal Medicine Nephrology
DX: E11.21 Type 2 diabetes mellitus with diabetic nephropathy (principal); E11.22 Type 2 diabetes mellitus with diabetic chronic kidney disease; N18.30 Chronic kidney disease, stage 3 unspecified; I10 Essential (primary) hypertension; E87.5 Hyperkalemia
CPT/HCPCS: 99214

== ENCOUNTER 2025-04-29 09:29 | Outpatient (AMB) | payer OTHER, SELFPAY ==
[2025-04-29 09:40] VITALS: BP 165/68; PULSE 69; O2SAT 94; BMI 26.8
--- NOTE | 2025-04-29 09:40 | A.OFFVIS_ITS ---
Vital Signs 04/29/25 09:40 Height 5 ft 5 in Weight 160 lb 14.999 oz BMI 26.8 BP 165/68 H Blood Pressure Location Rt brachial Position Sitting Pulse 69 Pulse Source Pulse Oximeter Pulse Oximetry (%) 94 Oxygen Delivery Method Room Air Intake Visit Reasons: T2DM Intake Note: Patient present today for Type 2 Diabetes Mellitus Last Diabetic eye exam: 03/2025, [facility] Last Podiatry Visit: 03/2025, [facility] Random Glucose: 182 mg/dL HgA1C: 7.7%, 04/29/2025 Robotype Operator Required: Yes Robotype Operator Language: Restaurant Mgr Services: Robotype Operator Offered & Declined Robotype Operator Name: Daughter Accompanied by: Daughter Allergies metformin (From GLUCOPHAGE) Adverse Reaction (Unknown, Verified 04/29/25 09:59) DIARRHEA HPI HPI T2DM: Details: Patient is a 74-year-old female with a significant past medical history of CKD, peripheral neuropathy, PB, hypertension, type 2 diabetes, insulin-dependent, prior CVA presenting today for follow-up regarding her diabetes. Her daughter is here today to help with translation Endo: Her last A1c is 7.7. She is on Lantus 30 units, NovoLog 6 units t.i.d., despite eating 4-5 big meals a day, jardiance 25 mg, and mounjaro 2.5 mg weekly. -she appears to be tolerating the Mounjaro well. States that she has only used it for 2 doses. She has nausea with the higher dose of Trulicity and states that she really would like you switch Mounjaro because it also seems like the Trulicity is giving her some constipation. She states previously with Mounjaro she had jennifer rrhea but she thinks it was related to diet and wants to try this again. She says the Ozempic she did not tolerate at all and had the nausea and vomiting.. CGM- G mi 7.5 %, average glucose 177. Very hyperglycemic 18%, hyperglycemic 24%, in range 57%, 1% hypoglycemia -it appears that there are some low blood sugars overnight but patient's feel these are inaccurate. CV: Blood pressure today in the office is 165/68. She has not yet taken any of her blood pressure medication. She is currently on metoprolol 25 mg b.i.d., hydralazine 25 mg twice a day, furosemide 40 mg daily. cholesterol is controlled with atorvastatin 40 mg. Last LDL was 64. She follows Cardiology and Nephrology. 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 Diabetic nephropathy associated with type 2 diabetes mellitus Dyslipidemia Diabetes type 2, uncontrolled Surgical History Hx of tubal ligation Hx of bilateral cataract extraction Hx of hysterectomy History of appendectomy Family History Father Cancer Mother Diabetes mellitus Social History Household Members: None Housing: Apartment Do you presently have visiting nurse or other home services: Yes Alcohol intake: never Patient Tobacco Use Status: Never used Tobacco Second Hand Smoke Exposure: No Advance Directives Date on File: 11/26/20 service: No Current occupational status: disabled Current occupation: rt handed Female Reproductive History Menstrual Age of Menarche: 12 Physical Exam Vital Signs: Last Vital Signs Pulse 69 04/29/25 09:40 BP 165/68 H 04/29/25 09:40 Pulse Ox 94 04/29/25 09:40 Oxygen Delivery Method Room Air 04/29/25 09:40 BMI result Body Mass Index 26.8 Const Orientation/consciousness: patient oriented x3 HEENT Ears: hearing grossly normal bilaterally Neck Thyroid: Thyroid normal Lymphatic: no lymphadenopathy noted Resp Auscultation: clear to auscultation bilaterally Cardio Rate: regular rate Rhythm: regular rhythm Heart sounds: S1 normal heart sound present and S2 normal heart sound present Skin General skin exam: no rashes or lesions noted Neuro General: patient oriented x3, gait normal and no focal motor deficits Results AMB Hemoglobin A1c AMB Hemoglobin A1c 7.7 % Last Edit by JACKLYN Turner on 04/29/25 09:59 Results Reviewed Results Reviewed: Laboratory Last Values Glucose (Clinic) 182 mg/dL (60-115) H 04/29/25 09:47 Hgb A1c (Clinic) 7.7 % (4.0-6.0) H 04/29/25 09:58 Laboratory Tests 12/24/24 01/11/25 04/16/25 13:14 08:00 09:01 Creatinine 1.68 H Estimated GFR 30 Hgb A1c (Clinic) 8.5 H Hemoglobin A1c % 7.8 H Triglycerides 96 Cholesterol 138 LDL Cholesterol, Calc 59 HDL Cholesterol 60 Assessment & Plan Assessment & Plan (1) Diabetes type 2, uncontrolled: Comment: IDDM Code(s): E11.65 - Type 2 diabetes mellitus with hyperglycemia Category: Medical Plan: Increase mounjaro 5 mg Reduce Lantus to 25 units Continue jardiance 25 mg Continue NovoLog 6 units with large meals. Follow up in 3 months or sooner if needed. (2) Hypertension: Code(s): I10 - Essential (primary) hypertension Category: Medical Qualifiers: Hypertension type: primary hypertension Qualified Code(s): I10 - Essential (primary) hypertension Plan: Elevated today. States that she forgot to take her antihypertensives. Orders: Orders AMB Hemoglobin A1c Today E11.65 - Type 2 diabetes mellitus with hyperglycemia Medications: New tirzepatide (Mounjaro) 5 mg (0.5 mL) subcut QWEEK 2 mL 4RF Changed From insulin glargine 30 units (0.3 mL) subcut BEDTIME 90 days 30 mL 1RF E11.65 - Type 2 diabetes mellitus with hyperglycemia To insulin glargine 25 units (0.25 mL) subcut BEDTIME 30 mL 1RF 90 days E11.65 - Type 2 diabetes mellitus with hyperglycemia Discontinued tirzepatide (Mounjaro) Discontinued Reason: Doctor's Order 2.5 mg (0.5 mL) subcut QWEEK 2 mL 3RF Patient Instructions: finish the mounjaro at the 2.5 mg then increase to mounjaro 5 mg weekly at that time, lower dosage of lantus to 25 units continue novolog continue jardiance if any lows call me! Coding Level of Care Code Est Pt Level 4 (18500) Complex EM visit Add On G2211 Diagnoses Diabetes type 2, uncontrolled E11.65 Primary hypertension I10 Hypertension type: primary hypertension
[2025-04-29 09:52] LABS: Glucose, Whole Blood 182 mg/dL (60-115)
--- OUTSIDE RECORDS SUMMARY | 2025-04-29 10:46 | XMS_ITS | Encounter Summary ---
Author Organization [employer] Address [address] [facility] [address] 7t [place] [address] Care Team Providers Care L Tacker Name Role Phone Ventura Tavares MD Primary Care Provide r Garrison Silverio MD Unavailable Encounter Details Date Type Department Care Team (Late st Contact Info) Description 01/04/2023 Orders Only [facility] [address] [place] [address] Aime Bland MD 230 [place], [place] [phone] Dyspnea, unspecified type (Primary Dx) Social History [...] PM EDT Narrative 01/04/2023 2:57 PM EDT [address] [address] XRay Report Signed Patient: Sindi Obrien MR#: [id number] : 1950 Acct:[id number] Age/Sex: 72 / F ADM Date: 01/04/23 Loc: HO.HHCX Attending Dr: Aime Bland MD Ordering Physician: AIME BLAND MD Date of Service: 01/04/23 Procedure(s): XR chest 2V Accession Number(s): [id number] cc: AIME BLAND MD EXAMINATION: XR CHEST [...] in OV> 01/04/23 1454 DD/ 1420 TD/TT: Tangled Yarn Worker: HERSON Procedure Note Donotuseinterpreter, Image - 01/19/[address] [address] XRay Report Signed Patient: Sindi ObrienMR#: [id number] : 1950cct:[id number] Age/Sex: 72 / FADM Date: 01/04/23 Loc: HO.HHCX Attending Dr: Aime Bland MD Ordering Physician: AIME BLAND MD Date of Service: 01/04/23 Procedure(s): XR chest 2V Accession Number(s): [id number] cc: AIME BLAND MD EXAMINATION: XR CHEST [...] in OV> 01/04/23 1454 DD/ 1420 TD/TT: Tangled Yarn Worker: HERSON [facility] External Provider IMG XR PROCEDURES Final Result documented in this encounter Visit Diagnoses Diagnosis Dyspnea, unspecified type- Primary documented in this encounter Additional Health Concerns Assessment Noted Time PHQ-9 Depression Total Score: 12 023 10:55 AM EDT documented as of this encounter Care Teams L Tacker Relationship Specialty Start Date End Date Ventura Tavares MD [address] [place] [address] PCP - General Internal Medicine 03/11/14 Garrison Silverio MD [address] [place] [address] [address] [place] [address] Nephrology 11/29/24 documented as of this encounter
--- OUTSIDE RECORDS SUMMARY | 2025-04-29 10:46 | XMS_ITS | Encounter Summary ---
Author Organization [employer] Address 75 [facility] 7t [place] [address] Care Team Providers Care Program Management Specialist Name Role Phone Ventura Tavares MD Primary Care Provide r Garrison Silverio MD Unavailable Encounter Details Date Type Department Care Team (Late st Contact Info) Description 12/01/2022 Abstract [facility] 230 [place] [address] Ventura Tavares MD 230 [place], [place] [phone] Social History Tobacco Use Types Packs/Day Years [...] on filedocumented in this encounter Care Teams Program Management Specialist Relationship Specialty Start Date End Date Ventura Tavares MD [address] [place] [address] PCP - General Internal Medicine 03/11/14 Garrison Silverio MD [address] [place] [address] [address] [place] [address] Nephrology 11/29/24 documented as of this encounter
--- OUTSIDE RECORDS SUMMARY | 2025-04-29 10:46 | XMS_ITS | Encounter Summary ---
Author Organization [employer] Address [address] [facility] 7t [place] [address] Care Team Providers Care Compress Engineer Name Role Phone Ventura Tavares MD Primary Care Provide r Garrison Silverio MD Unavailable Encounter Details Date Type Department Care Team (Late st Contact Info) Description 04/07/2023 Telephone [facility] [address] [place] [address] Ventura Tavares MD 230 [place], [place] [phone] Social History Tobacco Use Types Packs/Day Years [...] documented as of this encounter Care Teams Compress Engineer Relationship Specialty Start Date End Date Ventura Tavares MD [address] [place] [address] PCP - General Internal Medicine 03/11/14 Garrison Silverio MD [address] [place] [address] [address] [place] [address] Nephrology 11/29/24 documented as of this encounter
--- OUTSIDE RECORDS SUMMARY | 2025-04-29 10:46 | XMS_ITS | Encounter Summary ---
Author Organization [employer] Address [address] [facility] [address] 7t [place] [address] Care Team Providers Care Engineering Geologist Name Role Phone Ventura Tavares MD Primary Care Provide r Garrison Silverio MD Unavailable Reason for Visit * Reason Comments Med Refill Encounter Details Date Type Department Care Team ([facility] st Contact Info) Description 11/20/[address] [facility] MED[facility]INE [address] [place] [address] Ventura Tavares MD [address] [place] [address] Pain Social History Tobacco Use Types Packs/Day [...] documented as of this encounter Care Teams Engineering Geologist Relationship Specialty Start Date End Date Ventura Tavares MD [address] [place] [address] PCP - General Internal Medicine 03/11/14 Garrison Silverio MD [address] [place] [address] [address] [place] [address] Nephrology 11/29/24 documented as of this encounter
--- OUTSIDE RECORDS SUMMARY | 2025-04-29 10:46 | XMS_ITS | Encounter Summary ---
Author Organization [employer] Address 75 [facility] 7t [place] [address] Care Team Providers Care Special Projects Coordinator Name Role Phone Ventura Tavares MD Primary Care Provide r Garrison Silverio MD Unavailable Reason for Visit * Reason Onset Date Comments ER Follow-up 10/25/2022 Encounter Details Date Type Department Care Team ([facility] st Contact Info) Description 10/25/2022 Telephone [facility] 230 [place], [place] [phone] Ventura Tavares MD 230 [place], [place] [phone] ER Follow-up Social History Tobacco Use Types [...] to report [place] [facility] Diagnosed with [place]. Patient advised will forward to team nurse for follow up. documented in this encounter Plan of Treatment Not on file documented as of this encounter Visit Diagnoses Not on filedocumented in this encounter Care Teams Special Projects Coordinator Relationship Specialty Start Date End Date Ventura Tavares MD [address] [place] [address] PCP - General Internal Medicine 03/11/14 Garrison Silverio MD [address] [place] [address] Nephrology 11/29/24 documented as of this encounter
--- OUTSIDE RECORDS SUMMARY | 2025-04-29 10:46 | XMS_ITS | Encounter Summary ---
Author Organization [employer] Address [address] [facility] [address] 7t [place] [address] Care Team Providers Care Top Waddy Name Role Phone Ventura Tavares MD Primary Care Provide r Garrison Silverio MD Unavailable Encounter Details Date Type Department Care Team (Late st Contact Info) Description 07/05/2023 Telephone [facility] MED[facility]INE 230 [place] [address] Ventura Tavares MD 230 [place], [place] [phone] Social History Tobacco Use Types Packs/Day Years [...] 07/05/2023 2:11 PM EST Tc from farzad (MACHINIST WOOD) with [facility] calling to advise provider, a home assessment was done on behalf of CCAand pt A1C came out to be 10.8 Any questions, contact Farzad at [phone] documented in this encounter Plan of Treatment Not on file documented as of this encounter Visit Diagnoses Not on filedocumented in this encounter Additional Health Concerns Assessment Noted Time PHQ-9 Depression Total Score: 12 023 10:55 AM EDT documented as of this encounter Care Teams Top Waddy Relationship Specialty Start Date End Date Ventura Tavares MD [address] [place] [address] PCP - General Internal Medicine 03/11/14 Garrison Silverio MD [address] [place] [address] Nephrology 11/29/24 documented as of this encounter
--- OUTSIDE RECORDS SUMMARY | 2025-04-29 10:46 | XMS_ITS | Encounter Summary ---
Author Organization [employer] Address [address] [facility] [address] 7t [place] [address] Care Team Providers Care Microfilmer Name Role Phone Ventura Tavares MD Primary Care Provide r Garrison Silverio MD Unavailable Encounter Details Date Type Department Care Team (Late st Contact Info) Description 03/02/2023 Orders Only [facility]S [address] [place] [address] Terra Hannon LPN Social History Tobacco Use [...] documented as of this encounter Care Teams Microfilmer Relationship Specialty Start Date End Date Ventura Tavares MD [address] [place] [address] PCP - General Internal Medicine 03/11/14 Garrison Silverio MD [address] [place] [address] [place] [address] Nephrology 11/29/24 documented as of this encounter
--- OUTSIDE RECORDS SUMMARY | 2025-04-29 10:46 | XMS_ITS | Clinical Summary ---
Author Organization [facility] Address [address] [place] [address] [address] [place]OSLYN [phone] Phone Care Team Providers Care Straightedge Man Name Role Phone Ventura Schulz MD Primary [...] & Plan: Improving Pt seen at our [facility] by Dr Demarcus Larry, [place] negative [...] patient's age to complete this topic Insurance [place] [address] ([id number]) [place] [id number] [place] [id number] [facility] ([id number]) [place] SINGER [id number] Care Teams Straightedge Man Relationship Specialty Start Date End Date Ventura Schulz MD [address] [place] [address] PCP - General 08/04/20
--- OUTSIDE RECORDS SUMMARY | 2025-04-29 10:46 | XMS_ITS | Patient Health Record ---
Author Organization [facility] Address [address] [place] [address] Care Team Providers Care Mini Bar Attendant Name Role Phone Zeus Maldonado MD, Ventura Primary Care Provide Castillo Cash Unavailable [phone] Allergies Allergen (clinical drug ingredient) Drug/Non Drug [...] for 30 days 10/13/2022 Active Vitamin D3 35734 UNIT 1 tablet Orally On ce a [...] W/U Status Risk Notes Problem Epigastric pain (94441757) Epigastric abdominal pain (R10.13) Active confirmed Problem 215286766 Encounter for screening for malignant neoplasm of colon (Z12.11) Active confirmed Problem Screening for malignant neoplasm of rectum (619688852) Encounter for screening for malignant neoplasm of rectum (Z12.12) Active confirmed Problem 020885718 Long-term use of aspirin therapy (Z79.82) Active confirmed Problem 66677528 Constipation, unspecified constipation type (K59.00) Active confirmed Problem Gastroesophageal reflux disease (466806733) GERD (gastroesophage al reflux disease) (K21.9) Active confirmed Problem Chronic constipation (298125586) Constipation, chronic (K59.00) Active confirmed Plan Of Treatment Pending Test Test Name Order Date US ABD 05/23/2020 TSH REFLEX FREE T4 10/13/2022 Future Test Test Name Order Date COLONOSCOPY 06/12/2015 UPPER GI ENDOSCOPY 05/23/2020 Insurance Providers Payer Name Payer Address Payer Phone Subscriber Number Group Number Insured Name Patient Relationship to Insured Coverage Start Date Coverage End Date [facility] [address] [place] [address] [id number] CARINE LOCKHART Self - patient is the insured Medical (General) History Medical History History ICD Code Screening colonoscopy 01/2005 and 08/2015--negative except for diverticulosis and internal hemorrhoids IDDM Hyperlipidemia Denies [place] CVA > 10 yrs ago Asthma Chronic kidney disease state III-Dr. Hall iesarah HTN GERD Surgical History Surgery Date(Month/Year) Appendectomy Tubal ligation KATHARINA Cataracts and lens implants
--- OUTSIDE RECORDS SUMMARY | 2025-04-29 10:46 | XMS_ITS | Encounter Summary ---
Author Organization [employer] Address [address] [facility] 7t [place] [address] Care Team Providers Care Pure Pak Machine Operator Name Role Phone Ventura Tavares MD Primary Care Provide r [place] Silverio MD Unavailable Encounter Details Date Type Department Care Team (Late st Contact Info) Description 04/29/2025 Orders Only GENERIC EXTERNAL DATA DEPARTMENT Provider, [...] Associated Diagnosis Comments GLUCOSE, WHOLE BLOOD Routine 04/29/2025 9:47 AM EDT documented in this encounter Results * (ABNORMAL) Glucose, Whole Blood (04/29/2025 9:47 AM EDT) Glucose, Whole Blood 182(H) 60 - 115 mg/dL [facility] Comment:METER #: [id number] 0Testing performed in the Endocrinology Department [address] , [address], [facility]. 04/29/2025 9:47 AM EDT 04/29/2025 9:52 AM EDT us Generic External Data Provider LAB BLOOD ORDERAB LES Final Result [facility] [address] [place] [address] [phone] documented in this encounter Visit Diagnoses Not on filedocumented in this encounter Additional Health Concerns Assessment Noted Time PHQ-9 Depression Total Score: 0 05/15/20 24 10:57 AM EDT documented as of this encounter Care Teams Pure Pak Machine Operator Relationship Specialty Start Date End Date Ventura Tavares MD [address] [place] [phone] PCP - General Internal Medicine 03/11/14 [place] Silverio MD [address] [place] [address] [address] [place] [phone] Nephrology 11/29/24 documented as of this encounter
--- OUTSIDE RECORDS SUMMARY | 2025-04-29 10:46 | XMS_ITS | Encounter Summary ---
Author Organization [employer] Address [address] [place] [address] 7t [place] [address] Care Team Providers Care Photographer'S Model Name Role Phone Ventura Tavares MD Primary Care Provide r [place] Silverio MD Unavailable Encounter Details Date Type Department Care Team ([facility] st Contact Info) Description 07/09/2022 Orders Only [facility] [address] [place], [place] [phone] Ventura Tavares MD [address] [place], [place] [phone] Social History Tobacco Use Types Packs/Day Years [...] (09/06/2022 10:34 AM EST) Color Urine Yellow [facility] Appearance Urine Clear [facility] PH 7.5 5.0 - 9.0 [facility] Glucose Urine UA 100(A) Negative mg/dL [facility] Urine Blood Negative Negative [facility] Specific [place] - Urine 1.020 1.005 - 1.025 [facility] Urine Protein 100 (2+)(A) Neg-Trace mg/dL [facility] Urine Ketones Negative Negative mg/dL [facility] Nitrite Urine Negative Negative [facility] Leukocyte Esterase Urine Negative Negative [facility] RBC Urine 0-2 0 - 2 /HPF [facility] Urine WBC 0-5 0 - 5 /HPF [facility] Urine Squamous Epithelial Cell 6-10 0 - 2 /HPF [facility] Urine Bacteria None Seen None Seen [facility] Hyaline Casts, Urine 0-2 0 - 2 /LPF [facility] 09/06/2022 10:3 4 AM EST 09/06/2022 10:38 AM EST Narrative [facility] - 09/06/2022 10:51 AM EST [id number], Clean Catch us [facility] External Provider LAB URI NE ORDERABLES Final Result [facility] [address] [place] [address] [phone] * (ABNORMAL) Urinalysis with reflex microscopic (09/06/2022 10:34 AM EST) Color Urine Yellow [facility] Appearance Urine Clear [facility] PH 7.5 5.0 - 9.0 [facility] Glucose Urine UA 100(A) Negative mg/dL [facility] Urine Blood Negative Negative [facility] Specific [place] - Urine 1.020 1.005 - 1.025 [facility] Urine Protein 100 (2+)(A) Neg-Trace mg/dL [facility] Urine Ketones Negative Negative mg/dL [facility] Nitrite Urine Negative Negative [facility] Leukocyte Esterase Urine Negative Negative [facility] 09/06/2022 10:3 4 AM EST 09/06/2022 10:38 AM EST Narrative [facility] - 09/06/2022 10:45 AM EST [id number], Clean Catch [facility] External Provider LAB URI NE ORDERABLES Final Result Performing Organization Address [facility] de Phone Number [facility] [address] [place] [address] [phone] * (ABNORMAL) Comprehensive Metabolic Panel (09/06/2022 10:27 AM EST) Sodium 139 135 - 145 mmol/L [facility] Potassium 5.1 3.3 - 5.1 mmol/L [facility] Chloride 103 96 - 108 mmol/L [facility] Carbon Dioxide 29 22 - 29 mmol/L [facility] Anion Gap 12 12 - 20 [facility] Urea Nitrogen (BUN) 36(H) 9 - 16 mg/dL [facility] Creatinine, Serum 1.47(H) 0.5 - 1.4 mg/dL [facility] Creatinine Clr Calc Pharmacy 27.5 [facility] Comment:Provided height and weight: 134.62 cm,78.018 kg.eGFR (calculated from the MDRD study equation) and eCrCl(calculated from the Cockcroft-Gault equation) are based ondifferent parameters and may not yield comparable results.If eCrCl result is absurd, please check patient'sheight/weight. Estimated Glomerular Filt Rate 35 [facility] Comment:NOTE: For -Am erican individuals, multiply the result by 1.210.Chronic Kidney Disease: Estimated GFR < 60 mL/min/1.02n0Oeubwx Kidney Disease: Estimated GFR < 15 mL/min/1.73m2 Glucose 190(H) 60 - 115 mg/dL [facility] Calcium 9.4 8.4 - 10.2 mg/dL [facility] Bilirubin, Total 0.6 0.0 - 1.0 mg/dL [facility] Aspartate Amino Transferase 18 5 - 31 U/L [facility] Alanine Aminotransferase 16 0 - 31 U/L [facility] Total Protein 6.9 6.5 - 8.0 g/dL [facility] Albumin Level 4.0 3.5 - 5.0 g/dL [facility] Alkaline Phosphatase 105 39 - 117 U/L [facility] 09/06/2022 10:2 7 AM EST 09/06/2022 10:31 AM EST us [facility] External Provider LAB BLO OD ORDERABLES Final Result [facility] [address] [place] [phone] * (ABNORMAL) CBC auto differential (09/06/2022 10:27 AM EST) White Blood Count 6.5 4.8 - 10.8 X10*3/uL [facility] Red Blood Count 3.99(L) 4.20 - 5.50 X10*6/uL [facility] Hemoglobin 12.0 12.0 - 16.0 g/dl [facility] Hematocrit 36.2(L) 37.0 - 47.0 % [facility] Mean Corpuscular Volume 90.7 80.0 - 98.0 fL [facility] Mean Corpuscular Hemoglobin 30.1 27.0 - 33.0 pg [facility] Mean Corpuscular HGB Conc 33.1 31.0 - 35.0 g/dl [facility] Red Cell Distribution Width 11.6 11.0 - 16.0 % [facility] Platelet Count 194 160 - 400 X10*3/uL [facility] Mean Platelet Volume 10.6 9.4 - 12.3 fL [facility] Neutrophils Percent Auto 64.0 45 - 73 % [facility] Imm Gran Pct Auto 0.3 0.0 - 0.4 % [facility] Lymphocytes Percent Auto 22.6 20 - 40 % [facility] Monocytes Percent Auto 7.9 2 - 11 % [facility] Eosinophils Percent Auto 4.7(H) 0 - 4 % [facility] Basophils Percent Auto 0.5 0 - 2 % [facility] NRBC Pct Auto 0.0 0.0 - 0.2 /100WBC [facility] Neutrophils Absolute Auto 4.1 2.0 - 8.3 x10*3/uL [facility] Imm Gran Abs Auto 0.02 0.00 - 0.03 X10*3/uL [facility] Lymphocytes Absolute Auto 1.5 1.2 - 4.9 X10*3/uL [facility] Monocytes Absolute Auto 0.5 0.1 - 1.2 X10*3/uL [facility] Eosinophils Absolute Auto 0.3 0.0 - 0.4 X10*3/uL [facility] Basophils Absolute Auto 0.0 0.0 - 0.2 X10*3/uL [facility] NRBC Abs Auto 0.000 0.0 - 0.012 X10*3/uL [facility] 09/06/2022 10:2 7 AM EST 09/06/2022 10:31 AM EST us [facility] External Provider LAB BLO OD ORDERABLES Final Result Performing Organization Address [facility]/ZIP Co de Phone Number [facility] [address] [place] [phone] * Calcium (08/03/2022 8:15 AM EST) Calcium 9.2 8.4 - 10.2 mg/dL [facility] 08/03/2022 8:15 AM EST 08/03/2022 10:30 AM EST [facility] External Provider LAB BLO OD ORDERABLES Final Result Performing Organization Address [facility] de Phone Number [facility] [address] [place] [phone] * (ABNORMAL) Creatinine, Serum (08/03/2022 8:15 AM EST) Creatinine, Serum 1.54(H) 0.5 - 1.4 mg/dL [facility] Estimated Glomerular Filt Rate 33 [facility] Comment:NOTE: For -Am erican individuals, multiply the result by 1.210.Chronic Kidney Disease: Estimated GFR < 60 mL/min/1.41f7Muyoll Kidney Disease: Estimated GFR < 15 mL/min/1.73m2 08/03/2022 8:15 AM EST 08/03/2022 10:30 AM EST [facility] External Provider LAB BLO OD ORDERABLES Final Result Performing Organization Address [facility] Co de Phone Number [facility] [address] [place] [phone] * (ABNORMAL) BUN (Blood Urea Nitrogen) (08/03/2022 8:15 AM EST) Urea Nitrogen (BUN) 39(H) 9 - 16 mg/dL [facility] 08/03/2022 8:15 AM EST 08/03/2022 10:30 AM EST [facility] External Provider LAB BLO OD ORDERABLES Final Result Performing Organization Address [facility] Co de Phone Number [facility] [address] [place] [phone] [phone] * (ABNORMAL) Electrolyte Panel (08/03/2022 8:15 AM EST) Sodium 140 135 - 145 mmol/L [facility] Potassium 5.5(H) 3.3 - 5.1 mmol/L [facility] Chloride 106 96 - 108 mmol/L [facility] Carbon Dioxide 28 22 - 29 mmol/L [facility] Anion Gap 12 12 - 20 [facility] 08/03/2022 8:15 AM EST 08/03/2022 10:30 AM EST [facility] External Provider LAB BLO OD ORDERABLES Final Result Performing Organization Address [facility] de Phone Number [facility] [address] [place] [address] [phone] documented in this encounter Visit Diagnoses Not on filedocumented in this encounter Care Teams Photographer'S Model Relationship Specialty Start Date End Date Ventura Tavares MD [address] [place] [phone] PCP - General Internal Medicine 03/11/14 [place] Silverio MD [address] [place] [address] Nephrology 11/29/24 documented as of this encounter
--- OUTSIDE RECORDS SUMMARY | 2025-04-29 10:46 | XMS_ITS | Encounter Summary ---
Author Organization [employer] Address [address] [facility] [address]t [place] [address] Care Team Providers Care Principal Consultant Name Role Phone Ventura Tavares MD Primary Care Provide r [place] Silverio MD Unavailable Encounter Details Date Type Department Care Team (Late st Contact Info) Description 09/20/2022 Orders Only [facility] [address] [place] [address] Terra Hannon LPN Social History Tobacco Use [...] on filedocumented in this encounter Care Teams Principal Consultant Relationship Specialty Start Date End Date Ventura Tavares MD [address] [place] [phone] PCP - General Internal Medicine 03/11/14 [place] Silverio MD [address] [place] [address] Drive [address] [place] [address] Nephrology 11/29/24 documented as of this encounter
--- OUTSIDE RECORDS SUMMARY | 2025-04-29 10:46 | XMS_ITS | Encounter Summary ---
Author Organization [employer] Address [address] [facility] [address]t [place] [address] Care Team Providers Care Jet Dyeing Machine Tender Name Role Phone Ventura Tavares MD Primary Care Provide r [place] Silverio MD Unavailable Reason for Visit * Reason Comments Med Refill Encounter Details Date Type Department Care Team (Late st Contact Info) Description 02/24/2023 Refill [facility] [address] [place] [address] Ventura Tavares MD [address] [place] [address] Pain Social History Tobacco Use Types Packs/Day [...] documented as of this encounter Care Teams Jet Dyeing Machine Tender Relationship Specialty Start Date End Date Ventura Tavares MD [address] [place] [phone] PCP - General Internal Medicine 03/11/14 [place] Silverio MD [address] [place] [address] [address] [place] [phone] Nephrology 11/29/24 documented as of this encounter
--- OUTSIDE RECORDS SUMMARY | 2025-04-29 10:46 | XMS_ITS | Clinical Summary ---
Author Organization [employer] Address [address] [place] [address] [address] [place] [address] Care Team Providers Care Stock Worker And Deliverer Name Role Phone Ventura Tavares MD Primary [...] appears bluish ,regular borders -referred today to satellite instruction facilitator Routine physical examination 04/19/2023 Assessment & Plan [...] Larry spoke with Dr. Cosme's office (her beam builder helper), pt was seen 12/27/2023. We notified the office that her family practice nurse practitioner Dr. Silverio prescribes Lasix 20 mg 2 tabs po daily. Patient followed by Dr Cosme Learning Support Services Director, Previous Stress Test and ECHO unremarkable. Last seen 07/03/2024. Assessment & Plan (05/15/2024 1:05 PM EDT): Seen initially by Dr Demarcus Larry with c/o LE edema and elevated BNP, CXR was unermarkable. Dr. Larry spoke with Dr. Cosme's office (her beam builder helper), pt was seen 12/27/2023. We notified the office that her family practice nurse practitioner Dr. Silverio prescribes Lasix 20 mg 2 tabs po daily. Patient followed by Dr Cosme Learning Support Services Director, Previous Stress Test and ECHO unremarkable. Last seen 12/27/2023. Assessment & Plan (09/22/2023 11:38 AM EST): Seen by Dr Demarcus Larry with c/o LE edema, referred to cardiology seen by Dr Cosme Learning Support Services Director, Stress Test and ECHO unremarkable Assessment & Plan (01/18/2023 10:50 AM EDT): Seen by Dr Demarcus Larry with c/o LE edema, referred to cardiology seen by Dr Cosme 01/06/2023 ECHO ordered [facility] care 01/18/2023 Assessment & Plan (12/04/2024 10:22 [...] weight loss. 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 Last [...] Plan: As per Endocrinology Eye exam with [facility] diagnosed with Dr. both eyes. Last seen 12/06/2023 Pt does not adhere to a diabetic diet, does not want to go any higher on her insulin dose as it was recommended by her Millwork Estimator. 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 Last seen 12/06/2023 Pt does not adhere to a diabetic diet, does not want to go any higher on her insulin dose as it was recommended by her Millwork Estimator. Pt advised to Adhere to diabetic diet [...] 81 mg po daily. 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 Pt advised to Adhere to diabetic diet [...] 81 mg po daily. 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 Pt advised to Adhere to diabetic diet [...] 81 mg po daily. 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 Pt advised to Adhere to diabetic diet [...] 81 mg po daily. 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 Pt advised to Adhere to diabetic diet [...] 81 mg po daily. 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 Pt advised to Adhere to diabetic diet Plan: Refer back to Endocrinology 3 month f/u Severe obesity (CMS/HCC) 04/06/2012 Assessment & Plan (12/04/2024 10:08 AM [...] Encounters Date Type Department Care Team Description 04/29/2025 Orders Only GENERIC EXTERNAL DATA DEPARTMENT Provider, Generic External Data 04/22/2025 Abstract [place] [address] Ventura Tavares MD 04/16/2025 Orders Only GENERIC EXTERNAL DATA DEPARTMENT Provider, Generic External Data 04/05/2025 Orders Only GENERIC EXTERNAL DATA DEPARTMENT Provider, Generic External Data 02/27/2025 Refill [facility] [address] [place] [address] Ventura Tavares MD Pain 02/21/2025 Results Follow-Up [place] [address] Ventura Tavares MD CBC auto differential, Comprehensive Metabolic Panel, Lipase, Additional followed-up results: 4 02/13/2025 Orders Only GENERIC EXTERNAL DATA DEPARTMENT Provider, Generic External Data 02/11/2025 [place]ill [place] [address] Ventura Tavares MD Primary hypertension from Last [...] of 3) 04/01/2015 02/04/2015 Diabetes: Hemoglobin A1C 03/06/2025 025, 09/04/2024, 06/22/2024, [...] Additional history exists Tobacco Screening 12/04/2025 12/04/2024 Mammogram 04/22/2026 04/22/2025, 03/26, 10/24/2023, Additional history exists DTaP/Tdap/Td Vaccines (2 - Td or Tdap) [...] WHOLE BLOOD Routine 04/29/2025 9:47 AM EDT HM MAMMOGRAPHY Routine 04/22/2025 1:34 PM EDT BI MAMMOGRAM SCREENING TOMOSYNTHESIS BILATERAL Routine 04/17/2025 1:30 PM EDT Breast cancer screening by mammogram CALCIUM Routine 04/16/2025 9:01 AM EDT CREATININE, [...] disease, with long-term current use of insulin ([facility]) LIPID PANEL, STANDARD Routine 11/29/2024 8:20 AM EDT Mixed hyperlipidemia HM COLONOSCOPY Routine 09/01/2015 from Last 3 Months or Most Recently Relevant to Health Maintenance Results * (ABNORMAL) Glucose, Whole Blood (04/29/2025 9:47 AM EDT) Only the most recent of2 resultswithin the time period is included. Glucose, Whole Blood 182(H) 60 - 115 mg/dL [facility] Comment:METER #: [id number] 0Testing performed in the Endocrinology Department [address] , [address], [place]. 04/29/2025 9:47 AM EDT 04/29/2025 9:52 AM EDT us Generic External Data Provider LAB BLOOD ORDERAB LES Final Result [facility] [address] [facility] [place] [address] [phone] * Mammography (04/22/2025 1:34 PM EDT) HM Mammogram BIRADS 2 Normal, Abnormal, BIRADS 1 , BIRADS 2 Comment:1 year Anatomical Region Laterality Modality Other us Historical Provider HEALTH MAINTENANCE Final Result * BI Mammogram Screening Tomosynthesis Bilateral (04/17/2025 1:30 PM EDT) Anatomical Region Laterality Modality Breast Bilateral Mammography 04/17/2025 1:30 PM EDT Narrative 04/19/2025 6:43 PM [address]T [address] [place] [address] Mammography Report Signed Patient: Sindi Obrien MR#: [id number] : 1950 Acct:[id number] Age/Sex: 74 / F ADM Date: 04/17/25 Loc: HO.MAMMO Attending Dr: Ventura Shi MD Ordering Physician: Ventura Shi MD Resu lts: 2Benign Date of Service: 04/17/25 Follow Up: 1 Year From [facility] Mammogram Procedure(s): MM tomosynthesis screening BI Accession Number(s): [id number] cc: Ventura Shi MD Reason For Exam: screening EXAMINATION: MM SCREENING DIGITAL BREAST TOMOSYNTHESIS, BILATERAL CLINICAL INFORMATION: Screening. Asymptomatic. COMPARISON: Comparison made to multiple prior, most recent October 24, 2023, and most remote July 06, 2016. TECHNIQUE: Digital breast tomosynthesis is performed in mediolateral oblique and craniocaudal views along with computer-aided detection (CAD). Synthesized 2D images are generated from the tomosynthesis. FINDINGS: BREAST COMPOSITION: There are scattered areas of fibroglandular density. RIGHT BREAST: Tissue marker from previous needle core biopsy. No significant masses, suspicious calcifications or other abnormalities are seen. LEFT BREAST: No significant masses, suspicious calcifications or other abnormalities are seen. MM/MM tomosynthesis screening BI IMPRESSION: BILATERAL BREASTS: Benign, no mammographic evidence of malignancy. Normal interval follow-up is recommended in 12 months. ASSESSMENT: BI-RADS: Category 2: Benign RECOMMENDATION: Routine annual mammography screening. FOLLOW-UP: 1 year F/U This examination should not preclude the clinical evaluation of a suspicious palpable abnormality. This patient's information was entered into a reminder system with a target due date for their next mammogram. Electronically signed by: Everett Hi MD 04/19/2025 06:40 PM EDT RP Dictated By: Everett Hi MD Signed By: <Electronically signed by Everett Hi MD in OV> 04/19/25 1840 DD/ 1330 TD/TT: 04/17/25 1349 Composite Assembler: Procedure Note Donotuseinterpreter, Image - [facility]/19/20[facility] [address] [place], [place] [address] Mammography Report Signed Patient: Sindi Obrien#: M [id number] : 1950cct:[id number] Age/Sex: 74 / FADM Date: 04/17/25 Loc: [facility] Attending Dr: Ventura Shi MD Ordering Physician: Ventura Shi MDResu lts: 2Benign Date of Service: 04/17/25Follow Up: 1 Year From Orig inal Mammogram Procedure(s): MM tomosynthesis screening BI Accession Number(s): [id number] cc: Ventura Shi MD Reason For Exam: screening EXAMINATION: MM SCREENING DIGITAL BREAST TOMOSYNTHESIS, BILATERAL CLINICAL INFORMATION: Screening. Asymptomatic. COMPARISON: Comparison made to multiple prior, most recent October 24, 2023, and most remote July 06, 2016. TECHNIQUE: Digital breast tomosynthesis is performed in mediolateral oblique and craniocaudal views along with computer-aided detection (CAD). Synthesized 2D images are generated from the tomosynthesis. FINDINGS: BREAST COMPOSITION: There are scattered areas of fibroglandular density. RIGHT BREAST: Tissue marker from previous needle core biopsy. No significant masses, suspicious calcifications or other abnormalities are seen. LEFT BREAST: No significant masses, suspicious calcifications or other abnormalities are seen. MM/MM tomosynthesis screening BI IMPRESSION: BILATERAL BREASTS: Benign, no mammographic evidence of malignancy. Normal interval follow-up is recommended in 12 months. ASSESSMENT: BI-RADS: Category 2: Benign RECOMMENDATION: Routine annual mammography screening. FOLLOW-UP: 1 year F/U This examination should not preclude the clinical evaluation of a suspicious palpable abnormality. This patient's information was entered into a reminder system with a target due date for their next mammogram. Electronically signed by: Everett Hi MD 04/19/2025 06:40 PM EDT Dictated By: Everett Hi MD Signed By: <Electronically signed by Everett Hi MD in OV> 04/19/25 1840 DD/ 1330 TD/TT: 04/17/25 1349 Composite Assembler: us Ventura Maldonado MD IMG BI PROCEDURES Fin al Result * (ABNORMAL) Creatinine, Serum (04/16/2025 9:01 AM EDT) Creatinine, Serum 1.68(H) 0.5 - 1.4 mg/dL [facility] Estimated Glomerular Filt Rate 30 [facility] Comment:Chronic Kidney Disea se: Estimated GFR < 60 mL/min/[id number] Kidney Disease: Estimated GFR < 15 mL/min/1.73m2 04/16/2025 9:01 AM EDT 04/16/2025 11:26 AM EDT us Generic External Data Provider LAB BLOOD ORDERAB LES Final Result [facility] [address] [place] [phone] * (ABNORMAL) BUN (Blood Urea Nitrogen) (04/16/2025 9:01 AM EDT) Urea Nitrogen (BUN) 45(H) 9 - 16 mg/dL [facility] 04/16/2025 9:01 AM EDT 04/16/2025 11:26 AM EDT us Generic External Data Provider LAB BLOOD ORDERAB LES Final Result Performing Organization Address [facility] Co de Phone Number [facility] [address] [place] [phone] * Calcium (04/16/2025 9:01 AM EDT) Calcium 9.1 8.4 - 10.2 mg/dL [facility] 04/16/2025 9:01 AM EDT 04/16/2025 11:26 AM EDT Generic External Data Provider LAB BLOOD ORDERAB LES Final Result Performing Organization Address [facility] de Phone Number [facility] [address] [place] [phone] * (ABNORMAL) Electrolyte Panel (04/16/2025 9:01 AM EDT) Sodium 142 135 - 145 mmol/L [facility] Potassium 5.5(H) 3.3 - 5.1 mmol/L [facility] Chloride 108 96 - 108 mmol/L [facility] Carbon Dioxide 28 22 - 29 mmol/L [facility] Anion Gap 12 12 - 20 [facility] 04/16/2025 9:01 AM EDT 04/16/2025 11:26 AM EDT us Generic External Data Provider LAB BLOOD ORDERAB LES Final Result Performing Organization Address City/[facility]/ZIP Co de Phone Number [facility] [address] [place] [phone] * (ABNORMAL) Urinalysis, Complete, with Reflex to Culture (02/13/2025 3:18 PM EDT) Color Urine Yellow [facility] Appearance Urine Clear [facility] PH 5.5 5.0 - 9.0 [facility] Glucose Urine UA >=1000(A) Negative mg/dL [facility] Urine Blood Negative Negative [facility] Specific [place] - Urine 1.020 1.005 - 1.025 [facility] Urine Protein Trace Neg-Trace mg/dL [facility] Urine Ketones Negative Negative mg/dL [facility] Nitrite Urine Negative Negative [facility] Leukocyte Esterase Urine Negative Negative [facility] RBC Urine 0-2 0 - 2 /HPF [facility] Urine WBC 0-5 0 - 5 /HPF [facility] Urine Squamous Epithelial Cell 0-2 0 - 2 /HPF [facility] Urine Bacteria None Seen None Seen [facility] Hyaline Casts, Urine 0-2 0 - 2 /LPF [facility] 02/13/2025 3:18 PM EDT 02/13/2025 3:21 PM EDT Narrative [facility] - 02/13/2025 3:56 PM EDT Urine, Clean Catch us Generic External Data Provider LAB URINE ORDERAB LES Final Result Performing Organization Address [facility]/ZIP Co de Phone Number [facility] [address] [place] [phone] * (ABNORMAL) Bacterial Vaginosis (02/13/2025 3:07 PM EDT) TRICHOMONAS VAGINALIS DETECTION BY PCR NOT DETECTED Not Detect [facility] BACTERIAL VAGINOSIS DETECTION BY PCR POSITIVE(A) Negative [facility] Comment:The BV organism targ ets of [...] DETECTION BY PCR NOT DETECTED Not Detect [facility] Celestina glab krusei PCR NOT DETECTED Not Detect [facility] 02/13/2025 3:07 PM EDT 02/13/2025 3:17 PM EDT us Generic External Data Provider LAB MICROBIOLOGY - GENERAL ORDERABLES Final Result [facility] [address] [place] [phone] * Chlamydia/N. Gonorrhoeae RNA, TMA, Urogenitial (02/13/2025 3:07 PM EDT) CT PCR NOT DETECTED Not Detect. [facility] Comment:A not detected test result does [...] psychologicalconsequences. NG PCR NOT DETECTED Not Detect. [facility] Comment:A not detected test result does [...] GENERAL ORDERABLES Final Result Performing Organization Address [facility] Co de Phone Number [facility] [address] [place] [phone] * Wet prep, genital (02/13/2025 3:07 PM EDT) Vaginal Fluid Vaginal structure / Unknown 02/13/2025 3:07 PM EDT 02/13/2025 3:17 PM EDT Comment:Vaginal Narrative [facility] - 02/13/2025 3:26 PM EDT Trichomonas Prep Direct Microscopic Exam Trichomonas Prep No trichomonads or yeast seen Specimen Source: Vaginal Generic External Data Provider LAB MICROBIOLOGY - GENERAL ORDERABLES Final Result Performing Organization Address [facility] Co de Phone Number [facility] [address] [place] [phone] * CT Abdomen Pelvis w/o Contrast (02/13/2025 2:29 PM EDT) Anatomical Region Laterality Modality Body, Pelvis, Abdomen Computed T omography 02/13/2025 2:29 PM EDT Narrative 02/13/2025 3:57 PM EDT [address] [address] [address] Scan Report Signed Patient: Sindi Obrien MR#: [id number] : 1950 Acct:[id number] Age/Sex: 74 / F ADM Date: 02/13/25 Loc: HO.ED Attending Dr: Ordering Physician: Airam Acevedo Date of Service: 02/13/25 Procedure(s): CT abdomen pelvis wo IV con Accession Number(s): [id number] cc: Ventura Shi MD; Airam Acevedo Report Number: [id number]: Total DLP = 505.00 mGy-cm EXAMINATION: CT [...] Hakeem Kumar MD 02/13/2025 03:53 PM EDT RP Dictated By: Hakeem Bustos MD Signed By: <Electronically signed by Hakeem Ochoa MD in OV> 02/13/25 1553 DD/ 1429 TD/TT: 02/13/25 1538 Composite Assembler: Procedure Note Donotuseinterpreter, Image - 02/13/[address] [place] [address] [address] Scan Report Signed Patient: Sinid Obrien#: M [id number] : 1950cct:[id number] Age/Sex: 74 / FADM Date: 02/13/25 Loc: HO.ED Attending Dr: Ordering Physician: Airam Acevedo Date of Service: 02/13/25 Procedure(s): CT abdomen pelvis wo IV con Accession Number(s): [id number] cc: Ventura Shi MD; Airam Acevedo Report Number: [id number]: Total DLP = 505.00 mGy-cm EXAMINATION: CT [...] Hakeem Kumar MD 02/13/2025 03:53 PM EDT RP Dictated By: Hakeem Bustos MD Signed By: <Electronically signed by Hakeem Ochoa MDin OV> 02/13/25 1553 DD/ 1429 TD/TT: 02/13/25 1538 Composite Assembler: [facility] External Provider IMG CT PROCEDURES Final Result * (ABNORMAL) CBC auto differential (02/13/2025 1:44 PM EDT) White Blood Count 6.1 4.8 - 10.8 X10*3/uL [facility] Red Blood Count 3.59(L) 4.20 - 5.50 X10*6/uL [facility] Hemoglobin 11.3(L) 12.0 - 16.0 g/dl [facility] Hematocrit 33.9(L) 37.0 - 47.0 % [facility] Mean Corpuscular Volume 94.4 80.0 - 98.0 fL [facility] Mean Corpuscular Hemoglobin 31.5 27.0 - 33.0 pg [facility] Mean Corpuscular HGB Conc 33.3 31.0 - 35.0 g/dl [facility] Red Cell Distribution Width 11.9 11.0 - 16.0 % [facility] Platelet Count 184 160 - 400 X10*3/uL [facility] Mean Platelet Volume 10.2 9.4 - 12.3 fL [facility] Neutrophils Percent Auto 65.4 45 - 73 % [facility] Imm Gran Pct Auto 0.2 0.0 - 0.4 % [facility] Lymphocytes Percent Auto 19.8(L) 20 - 40 % [facility] Monocytes Percent Auto 7.8 2 - 11 % [facility] Eosinophils Percent Auto 6.3(H) 0 - 4 % [facility] Basophils Percent Auto 0.5 0 - 2 % [facility] NRBC Pct Auto 0.0 0.0 - 0.2 /100WBC [facility] Neutrophils Absolute Auto 4.0 2.0 - 8.3 x10*3/uL [facility] Imm Gran Abs Auto 0.01 0.00 - 0.03 X10*3/uL [facility] Lymphocytes Absolute Auto 1.2 1.2 - 4.9 X10*3/uL [facility] Monocytes Absolute Auto 0.5 0.1 - 1.2 X10*3/uL [facility] Eosinophils Absolute Auto 0.4 0.0 - 0.4 X10*3/uL [facility] Basophils Absolute Auto 0.0 0.0 - 0.2 X10*3/uL [facility] NRBC Abs Auto 0.000 0.0 - 0.012 X10*3/uL [facility] 02/13/2025 1:44 PM EDT 02/13/2025 1:48 PM EDT Generic External Data Provider LAB BLOOD ORDERAB LES Final Result Performing Organization Address [facility] Co de Phone Number [facility] [address] [place] [phone] * Lipase (02/13/2025 1:44 PM EDT) Lipase 28 8 - 78 U/L [facility] 02/13/2025 1:44 PM EDT 02/13/2025 1:48 PM EDT Generic External Data Provider LAB BLOOD ORDERAB LES Final Result Performing Organization Address [facility] de Phone Number [facility] [address] [place] [phone] * (ABNORMAL) Comprehensive Metabolic Panel (02/13/2025 1:44 PM EDT) Sodium 142 135 - 145 mmol/L [facility] Potassium 5.0 3.3 - 5.1 mmol/L [facility] Chloride 108 96 - 108 mmol/L [facility] Carbon Dioxide 28 22 - 29 mmol/L [facility] Anion Gap 11(L) 12 - 20 [facility] Urea Nitrogen (BUN) 35(H) 9 - 16 mg/dL [facility] Creatinine, Serum 1.72(H) 0.5 - 1.4 mg/dL [facility] Creatinine Clr Calc Pharmacy 21.4 [facility] Comment:Provided height and weight: 134.62 cm,72.4 kg.eGFR (calculated from the MDRD study equation) and eCrCl(calculated from the Cockcroft-Gault equation) are based ondifferent parameters and may not yield comparable results.If eCrCl result is absurd, please check patient'sheight/weight. Estimated Glomerular Filt Rate 29 [facility] Comment:Chronic Kidney Disea se: Estimated GFR < 60 mL/min/1.68s6Wuapir Kidney Disease: Estimated GFR < 15 mL/min/1.73m2 Glucose 194(H) 60 - 115 mg/dL [facility] Calcium 9.0 8.4 - 10.2 mg/dL [facility] Bilirubin, Total 0.3 0.0 - 1.0 mg/dL [facility] Aspartate Amino Transferase 23 5 - 31 U/L [facility] Alanine Aminotransferase 32(H) 0 - 31 U/L [facility] Total Protein 7.1 6.5 - 8.0 g/dL [facility] Albumin Level 4.0 3.5 - 5.0 g/dL [facility] Alkaline Phosphatase 145(H) 39 - 117 U/L [facility] 02/13/2025 1:44 PM EDT 02/13/2025 1:48 PM EDT us Generic External Data Provider LAB BLOOD ORDERAB LES Final Result [facility] [address] [place] [phone] * (ABNORMAL) POCT HGB A1C (12/04/2024 10:30 AM EDT) Pathologist [facility] Hemoglobin A1C 8.1(A) 4.0 - 6.0 % QC Media Lot # [id number] Lot# Expiration Date 985 Blood 12/04/2024 10:3 0 AM EDT Ventura Maldonado MD POINT OF CARE TEST EN TER/EDIT ORDERABLES Final Result * Lipid Panel, Standard (11/29/2024 8:20 AM EDT) [facility] Triglycerides 56 <150 mg/dL [facility] Comment:Desirable Triglyceri de: less than 150 mg/dLBorderline High Triglyceride 150-199 mg/dLHigh Triglyceride: 200-499 mg/dLVery High Triglyceride: greater than or equal to 5OO mg/dL Cholesterol 131 <200 mg/dL [facility] Comment:Desirable Cholestero l: less than 200 mg/dLBorderline High Cholesterol: 200-239 mg/dLHigh Cholesterol: greater than 239 mg/dL LDL Cholesterol Calculated 54 <100 mg/dL [facility] Comment:Desirable LDL: less than 100 mg/dLNear Optimal/Above Optimal LDL: 110- 129 mg/dLBorderline High LDL: 130-159 mg/dLHigh LDL: 160-189 mg/dLVery High LDL: greater than or equal to 190 mg/dL HDL Cholesterol 66 >40 mg/dL [facility] Comment:Desirable HDL: great er than 40 mg/dL Note: This HDL assay may give artificially low results in patients with liver disease. Blood Venous blood specimen / Unknown 11/29/2024 8:20 AM EDT 11/29/2024 11:12 AM EDT Ventura Maldonado MD LAB BLOOD ORDERABLES Final Result [facility] [address] [place] [address] [phone] * Colonoscopy (09/01/2015) Colonoscopy Normal Normal 09/01/2015 Brittany Patel - 09/01/2015 11:54 AM EST Recommended 10 year follow up us Historical Provider HEALTH MAINTENANCE Edited Result - Final from Last 3 Months or Most Recently Relevant to Health Maintenance Insurance [facility] [employer] (O D-SNP) Care Teams Stock Worker And Deliverer Relationship Specialty Start Date End Date Ventura Tavares MD [address] [place] [phone] PCP - General Internal Medicine 03/11/14 Garrison Silverio MD [address] [place] [address] Drive [address] [place] [phone] Nephrology 11/29/24
== END 2025-04-29 10:09 | disposition home or self-care (01) ==
LOC: HO.ENCR 09:29
PROVIDERS: PCP Internal Medicine; Visit Provider Physician Assistant
DX: E11.65 Type 2 diabetes mellitus with hyperglycemia (principal); I10 Essential (primary) hypertension

== ENCOUNTER → 2025-04-29 09:29 | Outpatient (BNVA) | payer OTHER, SELFPAY | PROVIDERS: PCP Internal Medicine; Visit Provider Physician Assistant | DX: E11.65 Type 2 diabetes mellitus with hyperglycemia (principal); G47.33 Obstructive sleep apnea (adult) (pediatric); I10 Essential (primary) hypertension; Z86.73 Personal history of transient ischemic attack (TIA), and cerebral infarction without residual deficits; Z79.4 Long term (current) use of insulin | CPT/HCPCS: 82947; 83036; 99212 ==

== ENCOUNTER 2025-06-24 10:46 | Outpatient (REF) | payer OTHER, SELFPAY ==
--- OUTSIDE RECORDS SUMMARY | 2025-06-24 13:50 | XMS_ITS | Encounter Summary ---
Author Organization [employer] Address [address] [facility] 7t [place] [address] Care Team Providers Care Food Service Order Clerk Name Role Phone Ventura Tavares MD Primary Care Provide r Garrison Silverio MD Unavailable Encounter Details Date Type Department Care Team ([facility] Contact Info) Description 09/20/2022 Orders Only [facility] MED & PEDS [address] [place] [address] Terra Hannon LPN Social History Tobacco Use [...] Upcoming Encounters Date Type Department Care Team ([facility] Contact Info) Description 07/02/2025 1:00 PM EST Medication Management [facility] MEDICINE [address] [place], [place] [phone] Segundo Cruz, PharmD [address] [place], [place] [phone] 09/19/2025 11:30 AM EST Office Visit [facility] MEDICINE [address] [place] [address] Ventura Tavares MD [address] [place] [address] documented as of this encounter Visit Diagnoses Not on filedocumented in this encounter Care Teams Food Service Order Clerk Relationship Specialty Start Date End Date Ventura Tavares MD [address] [place] [phone] PCP - General Internal Medicine 03/11/14 Garrison Silverio MD [address] [place] [address] [address] [place] [phone] Nephrology 11/29/24 documented as of this encounter
--- OUTSIDE RECORDS SUMMARY | 2025-06-24 13:50 | XMS_ITS | Encounter Summary ---
Author Organization [employer] Address [address] [place] [address] 7t [place] [address] Care Team Providers Care Technical Sales Manager Name Role Phone Ventura Tavares MD Primary Care Provide r Garrison Silverio MD Unavailable Encounter Details Date Type Department Care Team (Late st Contact Info) Description 07/09/2022 [facility] Health Information Management [address] [place] [address] Ventura Tavares MD [address] [place], [place] [phone] Social History Tobacco Use Types Packs/Day Years [...] Care Team (Late st Contact Info) Description 07/02/2025 1:00 PM EST Medication Management [facility] MEDICINE [address] [place] [phone] Segundo Cruz, PharmD [address] [place] [address] 09/19/2025 11:30 AM EST Office Visit [facility] [address] [place] [phone] Ventura Tavares MD [address] [place] [address] documented as of this encounter Procedures Procedure [...] Negative Negative [facility] Specific Rankin - Urine 1.020 1.005 - 1.025 [facility] Urine Protein 100 (2+)(A) Neg-Trace mg/dL [facility] Urine Ketones Negative Negative mg/dL [facility] Nitrite Urine Negative Negative [facility] Leukocyte Esterase Urine Negative Negative [facility] RBC Urine 0-2 0 - 2 /HPF [facility] Urine WBC 0-5 0 - 5 /HPF [facility] Urine Squamous Epithelial Cell 6-10 0 - 2 /HPF [facility] Urine Bacteria None Seen None Seen [facility] Hyaline Casts, Urine 0-2 0 - 2 /LPF [facility] 09/06/2022 10:3 4 AM EST 09/06/2022 10:38 AM EST Narrative [facility] - 09/06/2022 10:51 AM EST [id number], Clean Catch [facility] External Provider LAB URI NE ORDERABLES Final Result Performing Organization Address [facility]/ZIP Co de Phone Number [facility] [address] [place] [phone] * (ABNORMAL) Urinalysis with reflex microscopic (09/06/2022 10:34 AM EST) Color Urine Yellow [facility] Appearance Urine Clear [facility] PH 7.5 5.0 - 9.0 [facility] Glucose Urine UA 100(A) Negative mg/dL [facility] Urine Blood Negative Negative [facility] Specific Rankin - Urine 1.020 1.005 - 1.025 [facility] Urine Protein 100 (2+)(A) Neg-Trace mg/dL [facility] Urine Ketones Negative Negative mg/dL [facility] Nitrite Urine Negative Negative [facility] Leukocyte Esterase Urine Negative Negative [facility] 09/06/2022 10:3 4 AM EST 09/06/2022 10:38 AM EST Narrative [facility] - 09/06/2022 10:45 AM EST [id number], Clean Catch [facility] External Provider LAB URI NE ORDERABLES Final Result Performing Organization Address [facility]/ZIP Co de Phone Number [facility] [address] [place] [phone] * (ABNORMAL) Comprehensive Metabolic Panel (09/06/2022 [...] 1.210.Chronic Kidney Disease: Estimated GFR < 60 mL/min/[id number] Kidney Disease: Estimated GFR < 15 mL/min/1.73m2 [...] AM EST 09/06/2022 10:31 AM EST us [facility] External Provider LAB BLO OD ORDERABLES Final Result [facility] [address] [place], [place] [phone] * (ABNORMAL) CBC auto differential (09/06/2022 [...] 7 AM EST 09/06/2022 10:31 AM EST [facility] External Provider LAB BLO OD ORDERABLES Final Result Performing Organization Address City/[facility]/ZIP Co de Phone Number [facility] [address] [place] [phone] * Calcium (08/03/2022 8:15 AM EST) Calcium 9.2 8.4 - 10.2 mg/dL [facility] 08/03/2022 8:15 AM EST 08/03/2022 10:30 AM EST [facility] External Provider LAB BLO OD ORDERABLES Final Result Performing Organization Address City/[facility] Co de Phone Number [facility] [address] [place] [address] [phone] * (ABNORMAL) Creatinine, Serum (08/03/2022 8:15 AM EST) Creatinine, Serum 1.54(H) 0.5 - 1.4 mg/dL [facility] Estimated Glomerular Filt Rate 33 [facility] Comment:NOTE: For -Am erican individuals, multiply the result by 1.210.Chronic Kidney Disease: Estimated GFR < 60 mL/min/[id number] Kidney Disease: Estimated GFR < 15 mL/min/1.73m2 08/03/2022 8:15 AM EST 08/03/2022 10:30 AM EST [facility] External Provider LAB BLO OD ORDERABLES Final Result Performing Organization Address [facility] de Phone Number [facility] [address] [place] [phone] [phone] * (ABNORMAL) BUN (Blood Urea Nitrogen) (08/03/2022 8:15 AM EST) Urea Nitrogen (BUN) 39(H) 9 - 16 mg/dL [facility] 08/03/2022 8:15 AM EST 08/03/2022 10:30 AM EST [facility] External Provider LAB BLO OD ORDERABLES Final Result Performing Organization Address [facility] Phone Number [facility] [address] [place] [phone] * (ABNORMAL) Electrolyte Panel (08/03/2022 8:15 [...] 8:15 AM EST 08/03/2022 10:30 AM EST [facility] External Provider LAB BLO OD ORDERABLES Final Result Performing Organization Address [facility] de Phone Number [facility] [address] [place] [phone] [phone] documented in this encounter Visit Diagnoses Not on filedocumented in this encounter Care Teams Technical Sales Manager Relationship Specialty Start Date End Date Ventura Tavares MD [address] [place] [phone] PCP - General Internal Medicine 03/11/14 Garrison Silverio MD [address] [place] [address] [address] [place] [phone] Nephrology 11/29/24 documented as of this encounter
--- OUTSIDE RECORDS SUMMARY | 2025-06-24 13:50 | XMS_ITS | Clinical Summary ---
Author Organization [employer] Address [address] [facility] [address] [place] [address] Care Team Providers Care Credit Intern Name Role Phone Ventura Tavares MD Primary [...] . 30 patch 2 04/02/20 24 Active BD Pen Needle Kelly 2nd Gen 32G X 4 MM misc USE DIRECTED 5 TIMES DAILY Active sodium polystyrene sulfonate (Kayexalate) powder TAKE 30 GRAMS ORALLY ONCE A WEEK 05/25/20 24 Active melatonin 5 MG tablet Take 0.5 tablets by mouth at bedtime. Active Cyanocobalamin (VITAMIN B12 PO) Take 1 tablet by mouth 1 (one) time each day. B-12 gummies Active Jardiance 10 MG Take 1 tablet by mouth Once per day. 07/02/20 24 Active Continuous Glucose Sensor (FreeStyle Blake 3 Sensor) [facility] USE DIRECTED TO CHECK BLOOD SUGAR CHANGE EVERY 14 DAYS 1 each 3 10/20/19 25 Active cholecalciferol (Vitamin D-3) 25 MCG (1000 UT) tabletIndications: Low vitamin D level Take 1 tablet (25 mcg) by mouth Once per day. 30 tablet 6 12/21/19 25 Active metoprolol tartrate (Lopressor) 25 MG tabletIndications: Primary hypertension TAKE 1 TABLET BY MOUTH TWICE DAILY IN THE MORNING AND AT BEDTIME 180 tablet 2 02/13/20 25 Active atorvastatin (Lipitor) 40 MG tabletIndications: Mixed hyperlipidemia TAKE 1 TABLET BY MOUTH EVERY DAY 90 tablet 3 05/17/20 25 Active aspirin (Aspirin Low Dose) 81 MG EC tablet Take 1 tablet (81 mg) by mouth in the morning. 90 tablet 05/17/20 25 Active furosemide (Lasix) 20 MG tablet 1 tablet every other day 60 tablet 05/17/20 25 Active gabapentin (Neurontin) 300 MG capsuleIndications :Pain Take 1 capsule (300 mg) by mouth at bedtime. 90 capsule 05/17/20 25 Active hydrALAZINE (Apresoline) 25 MG tablet TAKE 1 TABLET BY MOUTH TWICE DAILY IN THE MORNING AND AT BEDTIME 180 tablet 1 05/17/20 25 Active Active Problems Problem Noted Date Diagnosed Date Abnormal CT scan, bladder 06/18/2025 Assessment & Plan (06/18/2025 1:17 PM EST): Pt seen in the ER with concerns for vaginal bleeding as part of her work up she had a CT that showed incidental findings: CT abdomen pelvis wo IV con No hydronephrosis or nephrolithiasis. Thickened urinary bladder wall. Inflammatory versus infectious processes should be considered in the correct clinical settings. Neoplasm cannot be excluded. Hyperdensity within the stomach lumen. Plan: given abnormal CT bladder findings will refer to Urology Abnormal CT scan, stomach 06/18/2025 Assessment & Plan (06/18/2025 1:19 PM EST): Pt seen in the ER with concerns for vaginal bleeding as part of her work up she had a CT that showed incidental findings: CT abdomen pelvis wo IV con Hyperdensity within the stomach lumen. Plan: given abnormal CT bladder findings will refer to gastroenterology Postmenopausal bleeding 06/18/2025 Assessment & Plan (06/18/2025 1:21 PM EST): Pt seen at [facility] ER with c/o vaginal spoting. As per ER Pelvic exam showed no signs of bleeding at the time of the exam. 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 Dr. Larry spoke with Dr. Cosme's office (her bull rider), pt was seen 12/27/2023. We notified the office that her landfill gas technician Dr. Silverio prescribes Lasix 20 mg 2 tabs po daily. Patient followed by Dr Cosme [place], Previous Stress Test and ECHO unremarkable. Last seen 01/01/2025 Assessment & Plan (09/04/2024 2:02 PM EST): Seen initially by Dr Demarcus Larry with c/o LE edema and elevated BNP, CXR was unermarkable. Dr. Larry spoke with Dr. Cosme's office (her bull rider), pt was seen 12/27/2023. We notified the office that her landfill gas technician Dr. Silverio prescribes Lasix 20 mg 2 tabs po daily. Patient followed by Dr Cosme [place], Previous Stress Test and ECHO unremarkable. Last seen 07/03/2024. Assessment & Plan (05/15/2024 1:05 PM EDT): Seen initially by Dr Demarcus Larry with c/o LE edema and elevated BNP, CXR was unermarkable. Dr. Larry spoke with Dr. Cosme's office (her bull rider), pt was seen 12/27/2023. We notified the office that her landfill gas technician Dr. Silverio prescribes Lasix 20 mg 2 tabs po daily. Patient followed by Dr Cosme [place], Previous Stress Test and ECHO unremarkable. Last seen 12/27/2023. Assessment & Plan (09/22/2023 11:38 AM EST): Seen by Dr Demarcus Larry with c/o LE edema, referred to cardiology seen by Dr Cosme [place], Stress Test and ECHO unremarkable Assessment & Plan (01/18/2023 10:50 AM EDT): Seen by Dr Demarcus Larry with c/o LE edema, referred to cardiology seen by Dr Cosme 01/06/[address] [facility] health care 01/18/2023 Assessment & Plan (12/04/2024 [...] kidney disease (CKD) , stage III (moderate) ([facility]) 04/06/2012 Assessment & Plan (06/18/2025 1:11 PM EST): Under the care of Nephrology seen in 04/17/2025 Who recommended low K diet and kayexalate twice a week Assessment & Plan (12/04/2024 10:07 AM EDT): [...] 2:14 PM EST): Seeing Trinh Su at [facility] Hyperlipidemia 04/06/2012 Assessment & Plan (12/04/2024 10:06 [...] 2 diabetes mellitus 04/06/2012 Assessment & Plan (06/18/2025 2:43 PM EST): Patient is here for a follow up Back under the care of Endocrinology , last seen 04/29/2025 DM finally controlled hgb A1c 06/18/2025: 6.8 from 8.1 She is on a regimen of: Lantus 30 units sc at pm and Novolog 6 units sc before meals. Mounjaro 5 mg once a week and Jardiance 25 mg (increase by Renal) Microalbumin on 06/22/2024 was 276 pt is off ARB. Foot check: , moderate reduction in peripheral sensation on R foot, mild reduction L foot. On asa 81 mg po daily. 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 Last seen 12/06/2023, today I have prompted her to call and schedule her follow up. 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 Last [...] Plan: As per Endocrinology Eye exam with Communication And Outreach Manager [facility] diagnosed with Dr. both eyes. Last seen 12/06/2023 Pt does not adhere to a diabetic diet, does not want to go any higher on her insulin dose as it was recommended by her Optometry Teacher. 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 Last seen 12/06/2023 Pt does not adhere to a diabetic diet, does not want to go any higher on her insulin dose as it was recommended by her Optometry Teacher. Pt advised to Adhere to diabetic [...] 81 mg po daily. 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 Pt advised to Adhere to diabetic [...] 81 mg po daily. 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 Pt advised to Adhere to diabetic [...] 81 mg po daily. 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 Pt advised to Adhere to diabetic [...] 81 mg po daily. 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 Pt advised to Adhere to diabetic [...] 81 mg po daily. 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 Pt advised to Adhere to diabetic [...] Encounters Date Type Department Care Team Description 06/18/2025 1:00 PM EST Office Visit [address] [address] Ventura Tavares MD [place] (dyspnea on exertion) (Primary Dx); Type 2 diabetes mellitus with stage 3a chronic kidney disease, with long-term current use of insulin (HCC); Stage 3a chronic kidney disease (CMS/HCC) (HCC); Abnormal CT scan, bladder; Abnormal CT scan, stomach; Postmenopausal bleeding 06/18/2025 Travel 06/14/[address] [address] Ventura Tavares MD CHART PREP 06/11/2025 Orders Only [address] [address] Ventura Tavares MD Hypertension (Primary Dx) 06/11/2025 Patient Outreach [address] [address] Ventura Tavares MD Care Coordination (CHW outreach for SDOH food needs-LVM ) 06/10/2025 Patient Outreach [address] [address] Ventura Tavares MD Pre-visit Planning (SDOH Screening positive and Tobacco screening negative) 05/27/[address] [place] [address] Ventura Tavares MD Mixed hyperlipidemia; Pain 05/23/2025 Refill [facility] [address] [place] [address] Ventura Tavares MD Mixed hyperlipidemia; Pain 05/21/2025 Refill [facility] [address] [facility] [place] [address] Ventura Tavares MD Mixed hyperlipidemia 05/13/2025 Refill [facility] [address] [facility] [place] [address] Ventura Tavares MD Mixed hyperlipidemia; Pain 05/09/2025 Telephone [facility] [address] [place] [address] Ventura Tavares MD 04/29/2025 Orders Only GENERIC EXTERNAL DATA DEPARTMENT Provider, Generic External Data 04/22/2025 Abstract [facility] [address] [facility] [place] [address] Ventura Tavares MD 04/16/2025 Orders Only GENERIC [...] housing situation today? I have alisha hodges 06/10/[address] you li ve. Do you have problems with any of the following? None of the above 06/10/2025 Food Insecurity Answer Date Recorded Within the past 12 months, y ou worried that your food would run out before you got money to buy more: Sometimes True 2024 Within the past 12 months,th e food you bought just didn't last and you didn't have enough money to get more: Sometimes True 06/10/2025 Transportation Answer Date Recorded In the past 12 months, has l ack of transportation kept you from medical appts, meetings, work or from getting things needed for daily living? No 06/10/2025 Utilities Answer Date Recorded In the past 12 months, has t he electric, gas, oil or water company threatened to shut off services in your home? No 06/10/2025 Depression Answer Date Recorded Patient Health Questionnaire-2 Score 0 05/15/2024 Internet Access Answer Date Recorded Internet Access Q1 Yes 06/10/2025 Internet Access Q2 Not on file 06/10/2025 Comments Unknown Sex and Gender Information Value Date Recorded Sex Assigned at Female 05/24/2022 10:15 AM EDT Legal Sex Female 10:15 AM EDT Gender Identity Female 05/24/2022 10:15 AM EDT Sexual Orientation Straight 05/24/2022 10 :15 AM EDT Last Filed Vital Signs Vital Sign Reading Time Taken Comments Blood Pressure 138/82 06/18/2025 1:23 PM EST Pulse 76 06/18/2025 12:55 PM EST Temperature 36.1 C (97 F) 06/18/2025 12:55 PM EST Respiratory Rate 17 06/18/2025 12:55 PM EST Oxygen Saturation 97% 12/04/2024 10:00 AM EDT Inhaled Oxygen Concentration - - Weight 71 kg (156 lb 9.6 oz) 06/18/2025 12:55 PM EST Height 134.6 cm (4' 5 ) 06/18/2025 12:55 PM EST Body Mass Index 39.2 06/18/2025 12:55 PM EST Plan of Treatment Upcoming Encounters Date Type Department Care Team (Late st Contact Info) Description 07/02/2025 1:00 PM EST Medication Management [facility] [address] [place] [id number] Segundo Cruz, PharmD [address] [place] [address] 09/19/2025 11:30 AM EST Office Visit [facility] [address] [place] [id number] Ventura Tavares MD [address] [place] [address] Health Maintenance Due Date Last Done Comments CT Colonography 1950 FIT DNA/Cologuard 1950 FIT 1950 FOBT 1950 Sigmoidoscopy 1950 Diabetes: Foot Exam 11/04/1961 Eye Exam 11/04/1961 Alcohol/Substance Use Screening 1963 Hepatitis C Screening 11/04/1969 RSV Patients and Patients Aged 60 years or older (1 - Risk 50-74 years 1-dose series) 11/04/2001 Zoster Vaccines (2 of 3) 04/01/2015 02/04/2015 COVID-19 Vaccine ( season) 2025 05/15/2024, 07/28/2022, 06/24/2021, Additional history exists Depression Screening 05/15/2025 05/15/2024, 05/15/20 24 Colonoscopy 09/01/2025 09/01/2015 Colorectal Cancer Screening 09/01/2025 Lipid Panel 11/29/2025 11/29/2024, 03/02/2024, 12/31/2022, Additional history exists Diabetes: Hemoglobin A1C 12/16/2025 025, 12/04/2024, 09/04/2024, Additional history exists Mammogram 04/22/2026 04/22/2025, 03/26, 10/24/2023, Additional history exists SDOH Screening 06/10/2026 06/10/2025 Tobacco Screening 06/18/2026 06/18/2025 DTaP/Tdap/Td Vaccines (2 - Td or Tdap) 02/13/2031 02/13/2021, 10/15/2010 Pneumococcal Vaccine: 50+ Years Completed 05/29/2024, 02/13/2021, 03/07/2000 Influenza Vaccine Completed 05/07/2025, , 08/16/2023, Additional history exists HIB Vaccines Aged Out No longer eligi [...] on patient's age to complete this topic Goals Goal Patient Goal Type Associated Problems Recent Progress Patient-Stated? Author Help patients manage their type 2 diabetes Care Plan Help patients manage their type 2 diabetes Chelsy Lawrence Weekly blood pressure task Care Plan Weekly blood pressure task No Chelsy Brown Help patients manage their type 2 diabetes Care Plan Help patients manage their type 2 diabetes No Chelsy Brown Patient has diabetic eye disease Care Plan Patient has diabetic eye disease No Chelsy Brown Help patients manage their type 2 diabetes Care Plan Help patients manage their type 2 diabetes No Chelsy Brown Patient has chronic kidney disease Care Plan Patient has chronic kidney disease No Chelsy Brown Weekly blood pressure task Care Plan Weekly blood pressure task No Chelsy Brown Weekly blood pressure task Care Plan Weekly blood pressure task No Chelsy Brown Patient has diabetic eye disease Care Plan Patient has diabetic eye disease No Chelsy Brown Patient has diabetic eye disease Care Plan Patient has diabetic eye disease No Chelsy Brown Patient has chronic kidney disease Care Plan Patient has chronic kidney disease No Chelsy Borwn Patient has chronic kidney disease Care Plan Patient has chronic kidney disease No Chelsy Brown Weekly blood pressure task Care Plan Weekly blood pressure task No Edda Tobi Weekly blood pressure task Care Plan Weekly blood pressure task No Tobi Bañuelos Weekly blood pressure task Care Plan Weekly blood pressure task No Edda Tobi Patient has diabetic eye disease Care Plan Patient has diabetic eye disease No Edda Tobi Patient has diabetic eye disease Care Plan Patient has diabetic eye disease No Edda, Tobi Patient has diabetic eye disease Care Plan Patient has diabetic eye disease No Edda, Tobi Patient has chronic kidney disease Care Plan Patient has chronic kidney disease No Edda Tobi Patient has chronic kidney disease Care Plan Patient has chronic kidney disease No Edda Tobi Patient has chronic kidney disease Care Plan Patient has chronic kidney disease No Edda Tobi Weekly blood pressure task Care Plan Weekly blood pressure task No Silvia Metz Weekly blood pressure task Care Plan Weekly blood pressure task No Silvia Metz Weekly blood pressure task Care Plan Weekly blood pressure task No Silvia Metz Patient has diabetic eye disease Care Plan Patient has diabetic eye disease No Silvia Metz Patient has diabetic eye disease Care Plan Patient has diabetic eye disease No Silvia Metz Patient has diabetic eye disease Care Plan Patient has diabetic eye disease No Silvia Metz Patient has chronic kidney disease Care Plan Patient has chronic kidney disease No Silvia Metz Patient has chronic kidney disease Care Plan Patient has chronic kidney disease No Silvia Metz Patient has chronic kidney disease Care Plan Patient has chronic kidney disease No Silvia Metz Weekly blood pressure task Care Plan Weekly blood pressure task No Weekly blood pressure task Care Plan Weekly blood pressure task No Weekly blood pressure task Care Plan Weekly blood pressure task No Patient has diabetic eye disease Care Plan Patient has diabetic eye disease No Patient has diabetic eye disease Care Plan Patient has diabetic eye disease No Patient has diabetic eye disease Care Plan Patient has diabetic eye disease No Patient has chronic kidney disease Care Plan Patient has chronic kidney disease No Tuesday, Patient has chronic kidney disease Care Plan Patient has chronic kidney disease No Patient has chronic kidney disease Care Plan Patient has chronic kidney disease No Weekly blood pressure task Care Plan Weekly blood pressure task No Anna Serrano MA Weekly blood pressure task Care Plan Weekly blood pressure task No Anna Serrano MA Weekly blood pressure task Care Plan Weekly blood pressure task No Anna Serrano MA Patient has diabetic eye disease Care Plan Patient has diabetic eye disease No Anna Serrano MA Patient has diabetic eye disease Care Plan Patient has diabetic eye disease No Anna Serrano MA Patient has diabetic eye disease Care Plan Patient has diabetic eye disease No Anna Serrano MA Patient has chronic kidney disease Care Plan Patient has chronic kidney disease No Anna Serrano MA Patient has chronic kidney disease Care Plan Patient has chronic kidney disease No Anna Serrano MA Patient has chronic kidney disease Care Plan Patient has chronic kidney disease No Anna Serrano MA Weekly blood pressure task Care Plan Weekly blood pressure task No Anna Serrano MA Weekly blood pressure task Care Plan Weekly blood pressure task No Anna Serrano MA Weekly blood pressure task Care Plan Weekly blood pressure task No Anna Serrano MA Patient has diabetic eye disease Care Plan Patient has diabetic eye disease No Anna Serrano MA Patient has diabetic eye disease Care Plan Patient has diabetic eye disease No Anna Serrano MA Patient has diabetic eye disease Care Plan Patient has diabetic eye disease No Anna Serrano MA Patient has chronic kidney disease Care Plan Patient has chronic kidney disease No Anna Serrano MA Patient has chronic kidney disease Care Plan Patient has chronic kidney disease No Anna Serrano MA Patient has chronic kidney disease Care Plan Patient has chronic kidney disease No Anna Serrano MA Weekly blood pressure task Care Plan Weekly blood pressure task No Elizabeth Su Weekly blood pressure task Care Plan Weekly blood pressure task No Elizabeth Su Weekly blood pressure task Care Plan Weekly blood pressure task No Jose Maria Sua Patient has diabetic eye disease Care Plan Patient has diabetic eye disease No Georges Elizabeth Patient has diabetic eye disease Care Plan Patient has diabetic eye disease No Georges Elizabeth Patient has diabetic eye disease Care Plan Patient has diabetic eye disease No Jose Maria Sua Patient has chronic kidney disease Care Plan Patient has chronic kidney disease No Elizabeth Su Patient has chronic kidney disease Care Plan Patient has chronic kidney disease No Elizabeth Su Patient has chronic kidney disease Care Plan Patient has chronic kidney disease No Jose Maria Sua Procedures Procedure Name Priority Date/Time Associated Diagnosis Comments POCT GLYCATED HEMOGLOBIN, TOTAL Routine 06/18/2025 1:00 PM EST Type 2 diabetes mellitus with stage 3a chronic kidney disease, with long-term current use of insulin (HCC) POCT GLUCOSE Routine 06/18/2025 12:59 PM EST Type 2 diabetes mellitus with stage 3a chronic kidney disease, with long-term current use of insulin (HCC) GLUCOSE, WHOLE BLOOD Routine 04/29/2025 9:47 AM [...] WHOLE BLOOD Routine 04/05/2025 8:46 AM EDT LIPID PANEL, STANDARD Routine 11/29/2024 8:20 AM EDT Mixed hyperlipidemia HM COLONOSCOPY Routine 09/01/2015 from Last 3 Months or Most Recently Relevant to Health Maintenance Results * (ABNORMAL) POCT Hgb A1c (06/18/2025 1:00 PM EST) Pathologist [facility] Hemoglobin A1C 6.8(A) 4.0 - 5.7 % QC Media Lot # [id number] Lot# Expiration Date Blood 06/18/2025 1:00 PM EST Ventura Maldonado MD POINT OF CARE TEST EN TER/EDIT ORDERABLES Final Result * (ABNORMAL) POCT Glucose (06/18/2025 12:59 PM EST) Pathologist [facility] Glucose Blood, POC 201(A) 60 - 200 mg/dL QC Media Lot # [id number] Lot# Expiration Date Blood Capillary blood specimen / Unknown 06/18/2025 12:59 PM EST Ventura Maldonado MD POINT OF CARE TEST EN TER/EDIT ORDERABLES Final Result * (ABNORMAL) Glucose, Whole Blood (04/29/2025 9:47 AM EDT) Only the most recent of2 resultswithin the time period is included. Glucose, Whole Blood 182(H) 60 - 115 mg/dL [facility] Comment:METER #: [id number] 0Testing performed in the Endocrinology Department [address] , [address], [place]. 04/29/2025 9:47 AM EDT 04/29/2025 9:52 AM EDT Generic External Data Provider LAB BLOOD ORDERAB LES Final Result [facility] [address] [place] [address] [phone] * Mammography (04/22/2025 1:34 PM EDT) Mammogram BIRADS 2 Normal, Abnormal, BIRADS 1 , BIRADS 2 Comment:1 year Anatomical Region Laterality Modality Other Historical Provider HEALTH MAINTENANCE Final Result * BI Mammogram Screening Tomosynthesis Bilateral (04/17/2025 1:30 PM EDT) Anatomical Region Laterality Modality Breast Bilateral Mammography 04/17/2025 1:30 PM EDT Narrative 04/19/2025 6:43 PM EDT [address] [place] [address] Mammography Report Signed Patient: Sindi Obrien MR#: [id number] : 1950 Acct:[id number] Age/Sex: 74 / F ADM Date: 04/17/25 Loc: HO.MAMMO Attending Dr: Ventura Shi MD Ordering Physician: Ventura Shi MD Resu lts: 2Benign Date of Service: 04/17/25 Follow Up: 1 Year From Orig inal Mammogram Procedure(s): MM tomosynthesis screening BI Accession Number(s): [id number] cc: Ventura Shi MD Reason For Exam: [...] Everett Hi MD 04/19/2025 06:40 PM EDT Workstation: [employer] [facility] Dictated By: Everett Hi MD Signed By: <Electronically signed by Everett Hi MD in OV> 04/19/25 1840 DD/ 1330 TD/TT: 04/17/25 1349 Supervisor Intermediates: Procedure Note Donotuseinterpreter, Image - [facility] [address] [place], [place] [address] Mammography Report Signed Patient: Sindi Obrien#: [id number] : 2Acct:[id number] Age/Sex: 74 / FADM Date: 04/17/25 Loc: HO.MAMMO Attending Dr: Ventura Shi MD Ordering Physician: Ventura Shi MDResu lts: 2Benign Date of Service: 04/17/25Follow Up: 1 Year From Orig inal Mammogram Procedure(s): MM tomosynthesis screening BI Accession Number(s): [id number] cc: Ventura Shi MD Reason For Exam: [...] Everett Hi MD 04/19/2025 06:40 PM EDT Workstation: [employer] [facility] Dictated By: Everett Hi MD Signed By: <Electronically signed by Everett Hi MD in OV> 04/19/25 1840 DD/ 1330 TD/TT: 04/17/25 1349 Supervisor Intermediates: us Ventura Maldonado MD IMG BI PROCEDURES Fin al Result * (ABNORMAL) Creatinine, Serum (04/16/2025 9:01 AM EDT) Creatinine, Serum 1.68(H) 0.5 - 1.4 mg/dL [facility] Estimated Glomerular Filt Rate 30 [facility] Comment:Chronic Kidney Disea se: Estimated GFR < 60 mL/min/[id number] Kidney Disease: Estimated GFR < 15 mL/min/1.73m2 04/16/2025 9:01 AM EDT 04/16/2025 11:26 AM EDT us Generic External Data Provider LAB BLOOD ORDERAB LES Final Result Performing Organization Address [facility] Co de Phone Number [facility] [address] [place] [phone] * (ABNORMAL) BUN (Blood Urea Nitrogen) (04/16/2025 9:01 AM EDT) Urea Nitrogen (BUN) 45(H) 9 - 16 mg/dL [facility] 04/16/2025 9:01 AM EDT 04/16/2025 11:26 AM EDT us Generic External Data Provider LAB BLOOD ORDERAB LES Final Result Performing Organization Address [facility] Co de Phone Number [facility] [address] [place] [address] [phone] * Calcium (04/16/2025 9:01 AM EDT) Calcium 9.1 8.4 - 10.2 mg/dL [facility] 04/16/2025 9:01 AM EDT 04/16/2025 11:26 AM EDT us Generic External Data Provider LAB BLOOD ORDERAB LES Final Result Performing Organization Address [facility] Co de Phone Number [facility] [address] [place] [address] [phone] * (ABNORMAL) Electrolyte Panel (04/16/2025 9:01 AM EDT) Sodium 142 135 - 145 mmol/L [facility] Potassium 5.5(H) 3.3 - 5.1 mmol/L [facility] Chloride 108 96 - 108 mmol/L [facility] Carbon Dioxide 28 22 - 29 mmol/L [facility] Anion Gap 12 12 - 20 [facility] 04/16/2025 9:01 AM EDT 04/16/2025 11:26 AM EDT us Generic External Data Provider LAB BLOOD ORDERAB LES Final Result Performing Organization Address [facility] [place] Co de Phone Number [facility] [address] [place] [phone] * Lipid Panel, Standard (11/29/2024 8:20 AM EDT) Triglycerides 56 <150 mg/dL [facility] Comment:Desirable Triglyceri de: less than 150 mg/dLBorderline High Triglyceride 150-199 mg/dLHigh Triglyceride: 200-499 mg/dLVery High Triglyceride: greater than or equal to 5OO mg/dL Cholesterol 131 <200 mg/dL [facility] Comment:Desirable Cholestero l: less than 200 mg/dLBorderline High Cholesterol: 200-239 mg/dLHigh Cholesterol: greater than 239 mg/dL LDL Cholesterol Calculated 54 <100 mg/dL [facility] Comment:Desirable LDL: less than 100 mg/dLNear Optimal/Above Optimal LDL: 110- 129 mg/dLBorderline High LDL: 130-159 mg/dLHigh LDL: 160-189 mg/dLVery High LDL: greater than or equal to 190 mg/dL HDL Cholesterol 66 >40 mg/dL [facility] Comment:Desirable HDL: great er than 40 mg/dL Note: This HDL assay may give artificially low results in patients with liver disease. Blood Venous blood specimen / Unknown 11/29/2024 8:20 AM EDT 11/29/2024 11:12 AM EDT us Ventura Maldonado MD LAB BLOOD ORDERABLES Final Result Performing Organization Address [facility] [place]/ZIP Co de Phone Number [facility] [address] [place] [phone] * Hm Colonoscopy (09/01/2015) Colonoscopy Normal Normal 09/01/2015 Brittany Patel - 09/01/2015 11:54 AM EST Recommended 10 year follow up us Historical Provider HEALTH MAINTENANCE Edited Result - Final from Last 3 Months or Most Recently Relevant to Health Maintenance Additional Health Concerns Active Problems Noted Date Diagnosed Date Help patients manage their type 2 diabetes 06/10 Weekly blood pressure task 06/10/2025 Help patients manage their type 2 diabetes 06/10 Patient has diabetic eye disease 06/10/2025 Help patients manage their type 2 diabetes 06/10 Patient has chronic kidney disease 06/10/2025 Weekly blood pressure task 06/10/2025 Weekly blood pressure task 06/10/2025 Patient has diabetic eye disease 06/10/2025 Patient has diabetic eye disease 06/10/2025 Patient has chronic kidney disease 06/10/2025 Patient has chronic kidney disease 06/10/2025 Weekly blood pressure task 06/11/2025 Weekly blood pressure task 06/11/2025 Weekly blood pressure task 06/11/2025 Patient has diabetic eye disease 06/11/2025 Patient has diabetic eye disease 06/11/2025 Patient has diabetic eye disease 06/11/2025 Patient has chronic kidney disease 06/11/2025 Patient has chronic kidney disease 06/11/2025 Patient has chronic kidney disease 06/11/2025 Weekly blood pressure task 06/11/2025 Weekly blood pressure task 06/11/2025 Weekly blood pressure task 06/11/2025 Patient has diabetic eye disease 06/11/2025 Patient has diabetic eye disease 06/11/2025 Patient has diabetic eye disease 06/11/2025 Patient has chronic kidney disease 06/11/2025 Patient has chronic kidney disease 06/11/2025 Patient has chronic kidney disease 06/11/2025 Weekly blood pressure task 06/13/2025 Weekly blood pressure task 06/13/2025 Weekly blood pressure task 06/13/2025 Patient has diabetic eye disease 06/13/2025 Patient has diabetic eye disease 06/13/2025 Patient has diabetic eye disease 06/13/2025 Patient has chronic kidney disease 06/13/2025 Patient has chronic kidney disease 06/13/2025 Patient has chronic kidney disease 06/13/2025 Weekly blood pressure task 06/14/2025 Weekly blood pressure task 06/14/2025 Weekly blood pressure task 06/14/2025 Patient has diabetic eye disease 06/14/2025 Patient has diabetic eye disease 06/14/2025 Patient has diabetic eye disease 06/14/2025 Patient has chronic kidney disease 06/14/2025 Patient has chronic kidney disease 06/14/2025 Patient has chronic kidney disease 06/14/2025 Weekly blood pressure task 06/18/2025 Weekly blood pressure task 06/18/2025 Weekly blood pressure task 06/18/2025 Patient has diabetic eye disease 06/18/2025 Patient has diabetic eye disease 06/18/2025 Patient has diabetic eye disease 06/18/2025 Patient has chronic kidney disease 06/18/2025 Patient has chronic kidney disease 06/18/2025 Patient has chronic kidney disease 06/18/2025 Weekly blood pressure task 06/18/2025 Weekly blood pressure task 06/18/2025 Weekly blood pressure task 06/18/2025 Patient has diabetic eye disease 06/18/2025 Patient has diabetic eye disease 06/18/2025 Patient has diabetic eye disease 06/18/2025 Patient has chronic kidney disease 06/18/2025 Patient has chronic kidney disease 06/18/2025 Patient has chronic kidney disease 06/18/2025 Insurance [facility] RETIREMENT OPTIONS (O D-SNP) [employer] [id number] Care Teams Credit Intern Relationship Specialty Start Date End Date Ventura Tavares MD [address] [place] [phone] PCP - General Internal Medicine 03/11/14 Garrison Silverio MD [address] [place] [address] Drive [address] [place] [address] Nephrology 11/29/24
--- OUTSIDE RECORDS SUMMARY | 2025-06-24 13:51 | XMS_ITS | Encounter Summary ---
Author Organization [employer] Address [address] 7[address] [place] [address] Care Team Providers Care Lead Applications Developer Name Role Phone Ventura Tavares MD Primary Care Provide r Garrison Silverio MD Unavailable Reason for Visit * Reason Comments Med Refill Encounter Details Date Type Department Care Team ([facility] st Contact Info) Description 05/27/[address] [facility] [address] [place] [address] Ventura Tavares MD [address] [place], [place] [phone] Mixed hyperlipidemia; Pain Social History Tobacco Use Types Packs/Day [...] Description 07/02/2025 1:00 PM EST Medication Management [facility] [address] [place] [address] Segundo Cruz, PharmD [address] [place] [address] 09/19/2025 11:30 AM EST Office Visit [facility] [address] [place] [address] Ventura Tavares MD [address] [place] [address] documented as of this encounter Visit Diagnoses Diagnosis Mixed hyperlipidemia Pain Generalized pain documented in this encounter Additional Health Concerns Assessment Noted Time PHQ-9 Depression Total Score: 0 05/15/20 24 10:57 AM EDT documented as of this encounter Care Teams Lead Applications Developer Relationship Specialty Start Date End Date Ventura Tavares MD [address] [place] [address] PCP - General Internal Medicine 8/18/14 Garrison Silverio MD [address] [place] [address] Drive [address] [place] [address] Nephrology 11/29/24 documented as of this encounter
--- OUTSIDE RECORDS SUMMARY | 2025-06-24 13:51 | XMS_ITS | Encounter Summary ---
Author Organization [employer] [facility] Address [address] [facility] 7t [place] [address] Care Team Providers Care Supreme Court Justice Name Role Phone Ventura Tavares MD Primary Care Provide r Garrison Silverio MD Unavailable Reason for Visit * Reason Comments Med Refill Encounter Details Date Type Department Care Team (Late Contact Info) Description 02/24/2023 Refill [facility] [address] [place] [phone] Ventura Tavares MD [address] [place] [address] Pain Social History Tobacco Use Types Packs/Day [...] Department Care Team (Late Contact Info) Description 07/02/2025 1:00 PM EST Medication Management [facility] [address] [place] [address] Segundo Cruz, PharmD [address] [place] [address] 09/19/2025 11:30 AM EST Office Visit [facility] 230 [place], [place] [phone] Ventura Tavares MD [address] [place], [place] [phone] documented as of this encounter Visit Diagnoses Diagnosis Pain Generalized pain documented in this encounter Additional Health Concerns Assessment Noted Time PHQ-9 Depression Total Score: 12 023 10:55 AM EDT documented as of this encounter Care Teams Supreme Court Justice Relationship Specialty Start Date End Date Ventura Tavares MD [address] [place] [phone] PCP - General Internal Medicine 03/11/14 Garrison Silverio MD [address] [place] [address] Drive [address] [place] [address] Nephrology 11/29/24 documented as of this encounter
--- OUTSIDE RECORDS SUMMARY | 2025-06-24 13:51 | XMS_ITS | Encounter Summary ---
Author Organization [employer] Address [address] [facility] 7t [place] [address] Care Team Providers Care Contracts Analyst Name Role Phone Ventura Tavares MD Primary Care Provide r Garrison Silverio MD Unavailable Reason for Visit * Reason Onset Date Comments ER Follow-up 10/25/2022 Encounter Details Date Type Department Care Team ([facility] st Contact Info) Description 10/25/2022 Telephone [facility] 230 [place], [place] [phone] Ventura Tavares MD 230 [place], [place] [phone] ER Follow-up Social History Tobacco Use Types [...] to report ED visit on 10/25/22 at [facility]. Diagnosed with fall. Patient advised will forward to team nurse for follow up. documented in this encounter Plan of Treatment Upcoming Encounters Date Type Department Care Team (Late st Contact Info) Description 07/02/2025 1:00 PM EST Medication Management [address] [address] Segundo Cruz, Annette [address] [place] [address] 09/19/2025 11:30 AM EST Office Visit [address] [address] Ventura Tavares MD [address] [place] [address] documented as of this encounter Visit Diagnoses Not on filedocumented in this encounter Care Teams Contracts Analyst Relationship Specialty Start Date End Date Ventura Tavares MD [address] [place] [address] PCP - General Internal Medicine 03/11/14 Garrison Silverio MD [address] [facility] [place] [address] Nephrology 11/29/24 documented as of this encounter
--- OUTSIDE RECORDS SUMMARY | 2025-06-24 13:51 | XMS_ITS | Encounter Summary ---
Author Organization [employer] Address [address] [facility] 7t [place] [address] Care Team Providers Care Restaurant Hourly Manager Name Role Phone Ventura Tavares MD Primary Care Provide r Garrison Silverio MD Unavailable Encounter Details Date Type Department Care Team ([facility] Contact Info) Description 03/02/2023 Orders Only [facility] [address] [place] [address] Terra Hannon LPN Social History Tobacco Use [...] Upcoming Encounters Date Type Department Care Team ([facility] Contact Info) Description 07/02/2025 1:00 PM EST Medication Management [facility] [address] [place], [place] [phone] Segundo Cruz, PharmD [address] [place], [place] [phone] 09/19/2025 11:30 AM EST Office Visit [facility] [address] [place], [place] [phone] Ventura Tavares MD [address] [place] [address] documented as of this encounter Visit Diagnoses Not on filedocumented in this encounter Additional Health Concerns Assessment Noted Time PHQ-9 Depression Total Score: 12 023 10:55 AM EDT documented as of this encounter Care Teams Restaurant Hourly Manager Relationship Specialty Start Date End Date Ventura Tavares MD [address] [place], [place] [phone] PCP - General Internal Medicine 03/11/14 Garrison Silverio MD [address] [place] [address] Nephrology 11/29/24 documented as of this encounter
--- OUTSIDE RECORDS SUMMARY | 2025-06-24 13:51 | XMS_ITS | Encounter Summary ---
Author Organization [employer] Address [address] [facility] [address] [facility] [address] 7t [place] [address] Care Team Providers Care Care Transitions Manager Name Role Phone Ventura Tavares MD Primary Care Provide r Garrison Silverio MD Unavailable Reason for Visit * Reason Comments Med Refill Encounter Details Date Type Department Care Team ([facility] st Contact Info) Description 05/21/2025 Refill [facility] [address] [place] [address] Ventura Tavares MD 230 [place] [address] Mixed hyperlipidemia Social History Tobacco Use Types Packs/Day Years [...] Description 07/02/2025 1:00 PM EST Medication Management [address] [address] Segundo Cruz, PharmD [address] [place] [address] 09/19/2025 11:30 AM EST Office Visit [address] [address] Ventura Tavares MD [address] [place] [address] documented as of this encounter Visit Diagnoses Diagnosis Mixed hyperlipidemia documented in this encounter Additional Health Concerns Assessment Noted Time PHQ-9 Depression Total Score: 0 05/15/20 24 10:57 AM EDT documented as of this encounter Care Teams Care Transitions Manager Relationship Specialty Start Date End Date Ventura Tavares MD [address] [place] [address] PCP - General Internal Medicine 03/11/14 Garrison Silverio MD [address] [place] [address] Drive [address] [place] [address] Nephrology 11/29/24 documented as of this encounter
--- OUTSIDE RECORDS SUMMARY | 2025-06-24 13:51 | XMS_ITS | Encounter Summary ---
Author Organization [employer] Address [address] 7t [place] [address] Care Team Providers Care Adjustment Examiner Name Role Phone Ventura Tavares MD Primary Care Provide r Garrison Silvreio MD Unavailable Reason for Visit * Reason Comments Med Refill Encounter Details Date Type Department Care Team ([facility] st Contact Info) Description 11/20/2024 Refill [facility] 230 [place] [address] Ventura Tavares MD 230 [place] [address] Pain Social History Tobacco Use Types Packs/Day [...] Description 07/02/2025 1:00 PM EST Medication Management [address] [address] Segundo Cruz, PharmD [address] [place] [address] 09/19/2025 11:30 AM EST Office Visit [address] [address] Ventura Tavares MD [address] [place] [address] documented as of this encounter Visit Diagnoses Diagnosis Pain Generalized pain documented in this encounter Additional Health Concerns Assessment Noted Time PHQ-9 Depression Total Score: 0 05/15/20 24 10:57 AM EDT documented as of this encounter Care Teams Adjustment Examiner Relationship Specialty Start Date End Date Ventura Tavares MD [address] [place] [address] PCP - General Internal Medicine 03/11/14 Garrison Silverio MD [address] [place] [address] Drive [address] [place] [address] Nephrology 11/29/24 documented as of this encounter
--- OUTSIDE RECORDS SUMMARY | 2025-06-24 13:51 | XMS_ITS | Encounter Summary ---
Author Organization [employer] Address [address] [facility] 7t [place] [address] Care Team Providers Care Clerical Production Worker Name Role Phone Ventura Tavares MD Primary Care Provide r Garrison Silverio MD Unavailable Reason for Referral * Consultation (Routine) - Authorized Specialty Diagnoses / Procedures Referred By Contac t Referred To Contact Pharmacy Diagnoses Hypertension Mary Mayer MD [address] [place] [address] Phone: tel: fax: Referral ID Status Reason Start Date Expiration Date Visits Requested Visits Authorized [id number] Authorized Continuity of Care 06/13/2025 06/13/2026 6 6 Encounter Details Date Type Department Care Team ([facility] st Contact Info) Description 06/11/2025 Orders Only [facility] [address] [place] [address] Ventura Tavares MD 230 [place], [place] [phone] Hypertension (Primary Dx) Social History Tobacco Use Types [...] 1:00 PM EST Medication Management [facility] [address] [place] [address] Segundo Cruz, PharmD [address] [place] [address] 09/19/2025 11:30 AM EST Office Visit [facility] [address] [place] [address] Ventura Tavares MD [address] [place] [address] Scheduled Referrals Name Type Priority Associated Diagnoses Orde r Schedule Referral to Pharmacy [place] Outpatient Referral Routine Hypertension Ordered: 06/13/2025 documented as of this encounter Goals Goal Patient Goal Type Associated Problems Recent Progress Patient-Stated? Author Help patients manage their type 2 diabetes Care Plan Help patients manage their type 2 diabetes No Chelsy Brown Weekly blood pressure task [...] has chronic kidney disease No Chelsy Brown Patient has chronic [...] eye disease No Edda Tobi Patient has chronic [...] has chronic kidney disease No Silvia Metz documented as of this encounter Visit Diagnoses Diagnosis Hypertension- Primary Unspecified essential hypertension documented in this encounter Additional Health Concerns Active Problems Noted Date [...] 06/11/2025 Patient has chronic kidney disease 06/11/2025 Assessment Noted Time PHQ-9 Depression Total Score: 0 05/15/20 10:57 AM EDT documented as of this encounter Care Teams Clerical Production Worker Relationship Specialty Start Date End Date Ventura Tavares MD [address] [place] [address] PCP - General Internal Medicine 03/11/14 Garrison Silverio MD [address] [place] [address] Drive [address] [place] [address] Nephrology 11/29/24 documented as of this encounter
--- OUTSIDE RECORDS SUMMARY | 2025-06-24 13:51 | XMS_ITS | Encounter Summary ---
Author Organization [employer] Address [address] [facility] [address] [facility] [address] 7t [place] [address] Care Team Providers Care Mental Retardation Aide Name Role Phone Ventura Tavares MD Primary Care Provide r Garrison Silverio MD Unavailable Reason for Visit * Reason Comments Med Refill Encounter Details Date Type Department Care Team ([facility] st Contact Info) Description 05/23/2025 Refill [facility] [address] [place] [address] Ventura Tavares MD [address] [place], [place] [phone] Mixed hyperlipidemia; Pain Social History Tobacco Use [...] 1:00 PM EST Medication Management [facility] [address] [place] [address] Segundo Cruz, PharmD [address] [place] [address] 09/19/2025 11:30 AM EST Office Visit [facility] [address] [place] [address] Ventura Tavares MD [address] [place] [address] documented as of this encounter Visit Diagnoses Diagnosis Mixed hyperlipidemia Pain Generalized pain documented in this encounter Additional Health Concerns Assessment Noted Time PHQ-9 Depression Total Score: 0 05/15/20 24 10:57 AM EDT documented as of this encounter Care Teams Mental Retardation Aide Relationship Specialty Start Date End Date Ventura Tavares MD [address] [place] [phone] PCP - General Internal Medicine 8/18/14 Garrison Silverio MD [address] [place] [address] Drive [address] [place] [address] Nephrology 11/29/24 documented as of this encounter
--- OUTSIDE RECORDS SUMMARY | 2025-06-24 13:51 | XMS_ITS | Encounter Summary ---
Author Organization [employer] Address [address] [facility] [address] [facility] [address] 7t [place] [address] Care Team Providers Care Pediatric Surgeon Name Role Phone Ventura Tavares MD Primary Care Provide r Garrison Silverio MD Unavailable Encounter Details Date Type Department Care Team (Late st Contact Info) Description 07/05/2023 Telephone [facility] 230 [place] [address] Ventura Tavares MD 230 [place], [place] [phone] Social History Tobacco Use Types Packs/Day Years [...] 07/05/2023 2:11 PM EST Tc from [employer] ([employer]) with [employer] calling to advise provider, a home assessment was done on behalf of [employer]and pt A1C came out to be 10.8 Any questions, contact [employer] at [phone] documented in this encounter Plan of Treatment Upcoming Encounters Date Type Department Care Team (Late st Contact Info) Description 07/02/2025 1:00 PM EST Medication Management [facility] [address] [place] [address] Segundo Cruz, PharmD [address] [place] [address] 09/19/2025 11:30 AM EST Office Visit [facility] [address] [place] [address] Ventura Tavares MD [address] [place] [address] documented as of this encounter Visit Diagnoses Not on filedocumented in this encounter Additional Health Concerns Assessment Noted Time PHQ-9 Depression Total Score: 12 023 10:55 AM EDT documented as of this encounter Care Teams Pediatric Surgeon Relationship Specialty Start Date End Date Ventura Tavares MD [address] [place] [address] PCP - General Internal Medicine 03/11/14 Garrison Silverio MD [address] [place] [address] [place] [address] Nephrology 11/29/24 documented as of this encounter
--- OUTSIDE RECORDS SUMMARY | 2025-06-24 13:51 | XMS_ITS | Encounter Summary ---
Author Organization [facility] [employer] Address [address] [facility] [address] 7[address] [place] [address] Care Team Providers Care Fish Egg Packer Name Role Phone Ventura Tavares MD Primary Care Provide r Garrison Silverio MD Unavailable Encounter Details Date Type Department Care Team (Late st Contact Info) Description 01/04/2023 Orders Only [facility] [address] [place] [phone] Aime Bland MD [address] [place], [place] [phone] Dyspnea, unspecified type (Primary Dx) Social History [...] Description 07/02/2025 1:00 PM EST Medication Management [address] [phone] Segundo Cruz, PharmD [address] [place] [address] 09/19/2025 11:30 AM EST Office Visit [address] [phone] Ventura Tavares MD [address] [place] [address] [phone] Scheduled Orders Name Type Priority Associated Diagnoses [...] PM EDT Narrative 01/04/2023 2:57 PM EDT [address] [address] XRay Report Signed Patient: Sindi Obrien MR#: [id number] : 1950 Acct:[id number] Age/Sex: 72 / F ADM Date: 01/04/23 Loc: .HHX Attending Dr: Aime Bland MD Ordering Physician: AIME BLAND MD Date of Service: 01/04/23 Procedure(s): XR chest 2V Accession Number(s): [id number] cc: AIME BLAND MD EXAMINATION: XR CHEST CLINICAL INFORMATION: SOB on exertion. COMPARISON: None available. TECHNIQUE: 2 views of the chest were obtained. FINDINGS: No significant abnormality is noted involving the heart, lungs, mediastinum, bony thorax or soft tissues. XR/XR chest 2V IMPRESSION: Unremarkable chest examination. Dictated By: Giancarlo Colby MD Signed By: <Electronically signed by Giancarlo Colby MD in OV> 01/04/231453 DD/ 1420 TD/TT: Furnace Combustion Analyst: HERSON Procedure Note Donotuseinterpreter, Image - 01/19/2023 [facility] [address] [place] [address] XRay Report Signed Patient: Sindi ObrienMR#: [id number] : 1950cct:[id number] Age/Sex: 72 / FADM Date: 01/04/23 Loc: HO.HHCX Attending Dr: Aime Bland MD Ordering Physician: AIME BLAND MD Date of Service: 01/04/23 Procedure(s): XR chest 2V Accession Number(s): [id number] cc: AIME BLAND MD EXAMINATION: XR CHEST CLINICAL INFORMATION: SOB on exertion. COMPARISON: None available. TECHNIQUE: 2 views of the chest were obtained. FINDINGS: No significant abnormality is noted involving the heart, lungs, mediastinum, bony thorax or soft tissues. XR/XR chest 2V IMPRESSION: Unremarkable chest examination. Dictated By: Giancarlo Colby MD Signed By: <Electronically signed by Giancarlo Colby MD in OV> 01/04/231453 DD/ 1420 TD/TT: Furnace Combustion Analyst: [facility] External Provider IMG XR PROCEDURES Final Result documented in this encounter Visit Diagnoses Diagnosis Dyspnea, unspecified type- Primary documented in this encounter Additional Health Concerns Assessment Noted Time PHQ-9 Depression Total Score: 12 023 10:55 AM EDT documented as of this encounter Care Teams Fish Egg Packer Relationship Specialty Start Date End Date Ventura Tavares MD [address] [place] [address] PCP - General Internal Medicine 03/11/14 Garrison Silverio MD [address] [place] [address] Drive [address] [place] [address] Nephrology 11/29/24 documented as of this encounter
--- OUTSIDE RECORDS SUMMARY | 2025-06-24 13:51 | XMS_ITS | Encounter Summary ---
Author Organization [employer] Address [address] [facility] 7t [place] [address] Care Team Providers Care Truck Loader Name Role Phone Ventura Tavares MD Primary Care Provide r Garrison Silverio MD Unavailable Encounter Details Date Type Department Care Team ([facility] Contact Info) Description 04/07/2023 Telephone [facility] [address] [place] [phone] Ventura Tavares MD [address] [place] [address] [phone] Social History Tobacco Use Types Packs/Day Years [...] Description 07/02/2025 1:00 PM EST Medication Management [facility] [address] [place] [phone] Segundo Cruz, Annette [address] [place] [address] 09/19/2025 11:30 AM EST Office Visit [facility] [address] [place] [phone] Ventura Tavares MD [address] [place] [address] documented as of this encounter Visit Diagnoses Not on filedocumented in this encounter Additional Health Concerns Assessment Noted Time PHQ-9 Depression Total Score: 12 023 10:55 AM EDT documented as of this encounter Care Teams Truck Loader Relationship Specialty Start Date End Date Ventura Tavares MD [address] [place] [phone] PCP - General Internal Medicine 03/11/14 Garrison Silverio MD [address] [place] [address] Drive [address] [place] [address] Nephrology 11/29/24 documented as of this encounter
--- OUTSIDE RECORDS SUMMARY | 2025-06-24 13:51 | XMS_ITS | Clinical Summary ---
Author Organization [facility] Address [address] [place] [address] [address] [place]OS[place]N [phone] Phone Care Team Providers Care Vp Marketing Services And Skin Name Role Phone Ventura Schulz MD Primary [...] & Plan: Improving Pt seen at our [facility] by Dr Demarcus Larry, [place] [...] Depressive disorder 04/06/2012 Hyperlipidemia 04/06/2012 Osteoarthritis 04/06/2012 Pain of shoulder region 04/06/2012 Resolved Problems Problem Noted Date Diagnosed [...] patient's age to complete this topic [place] [address] ([id number]) MAZIN SINGER [id number] [facility] ([id number]) MAZIN SINGER [phone] Care Teams Vp Marketing Services And Skin Relationship Specialty Start Date End Date Ventura Schulz MD [address] [place] [address] PCP - General 08/04/20
--- OUTSIDE RECORDS SUMMARY | 2025-06-24 13:51 | XMS_ITS | Encounter Summary ---
Author Organization [employer] [facility] Address [address] [place] [address] 7t [place] [address] Care Team Providers Care Computer Security Manager Name Role Phone Ventura Tavares MD Primary Care Provide r Garrison Silverio MD Unavailable Encounter Details Date Type Department Care Team (Late st Contact Info) Description 12/01/2022 Abstract [facility] [address] [place] [phone] Ventura Tavares MD [address] [place] [address] Social History Tobacco Use Types Packs/Day Years [...] Description 07/02/2025 1:00 PM EST Medication Management [address] [address] Segundo Cruz, PharmD [address] [place] [address] 09/19/2025 11:30 AM EST Office Visit [address] [address] Ventura Tavares MD 230 [facility] [address] documented as of this encounter Procedures Procedure Name Priority Date/Time Associated Diagnosis Comments COLONOSCOPY Routine 09/01/2015 documented in this encounter Results * Colonoscopy (09/01/2015) Colonoscopy Normal Normal 09/01/2015 Narrative Brittany Galarza - 09/01/2015 11:54 AM EST Recommended 10 year follow up Historical Provider [facility] Edited Result - Final documented in this encounter Visit Diagnoses Not on filedocumented in this encounter Care Teams Computer Security Manager Relationship Specialty Start Date End Date Ventura Tavares MD [address] [facility] [address] PCP - General Internal Medicine 03/11/14 Garrison Silverio MD [address] [place] [address] Nephrology 11/29/24 documented as of this encounter
[2025-06-24 13:54] LABS: Anion Gap 10 (12-20); Blood Urea Nitrogen 45 mg/dL (9-16); Carbon Dioxide 28 mmol/L (22-29); Chloride 110 mmol/L (96-108); Estimated Glomerular Filt Rate 30; Potassium 4.9 mmol/L (3.3-5.1); Sodium 143 mmol/L (135-145)
== END 2025-06-24 10:47 | disposition home or self-care (01) ==
LOC: HO.HHCL 10:46
PROVIDERS: PCP Internal Medicine; Visit Provider Internal Medicine Nephrology
DX: E11.22 Type 2 diabetes mellitus with diabetic chronic kidney disease (principal); I12.9 Hypertensive chronic kidney disease with stage 1 through stage 4 chronic kidney disease, or unspecified chronic kidney disease; N18.30 Chronic kidney disease, stage 3 unspecified
CPT/HCPCS: 36415; 80051; 82565; 84520

== ENCOUNTER 2025-06-28 14:35 | Outpatient (AMB) | payer OTHER, SELFPAY ==
--- NOTE | 2025-06-28 14:47 | HO.NEPHOV_ITS ---
Vital Signs 06/28/25 14:48 Height 5 ft 5 in Weight 159 lb 2 oz BMI 26.5 BP 140/60 H Blood Pressure Location Rt brachial Position Sitting Pulse 74 Pulse Source Pulse Oximeter Pulse Oximetry (%) 96 Oxygen Delivery Method Room Air Intake Visit Reasons: 2 mo f/u w/ labs-Conf Visitor Services Coordinator Required: Yes Visitor Services Coordinator Language: [employer] Principal Services: Visitor Services Coordinator Offered & Declined ([facility] Visitor Services Coordinator services refused ) Accompanied by: Daughter Allergies metformin (From GLUCOPHAGE) Adverse Reaction (Unknown, Verified 06/28/25 14:47) DIARRHEA HPI Comments Details: Sindi was seen in follow-up of her chronic kidney disease due to biopsy-proven diabetic nephropathy. Her blood sugar control has been better with weight loss on Trulicity.. She has history of cerebrovascular accident. She has hypertension. She had no deficits from CVA. Blood pressure is better controlled. She has not good with her diet and weight loss. She denies using any nonsteroidal anti-inflammatories but consumes normal sodium and has a normal diet. she was on angiotensin receptor claude in the past which she did not tolerate very well. She denies chest pain, shortness of breath, paroxysmal nocturnal dyspnea, orthopnea, pedal edema, urinary symptoms or orthostasis. She tries to maintain herself with good hydration. She has been having facial swelling and pedal edema which resolved with diuresis. She is not very compliant with low sodium diet. She had been on losartan which has been put on hold since she has been having hyperkalemia. PENDING SALE TO [facility] Medical History Snoring Dyspnea on exertion PB (obstructive sleep apnea) Hypoxemia Breast calcification, right Obesity due to excess calories Peripheral nerve facial nerve paralysis History of CVA (cerebrovascular accident) GERD (gastroesophageal reflux disease) Asthma Morbid obesity Hypertension CKD stage 3 due to type 2 diabetes mellitus custodial (current) use of insulin Diabetic nephropathy associated with type 2 diabetes mellitus Dyslipidemia Diabetes type 2, uncontrolled Surgical History Hx of tubal ligation Hx of bilateral cataract extraction Hx of hysterectomy History of appendectomy Family History Father Cancer Mother Diabetes mellitus Social History Household Members: None Housing: Apartment Do you presently have visiting nurse or other home services: Yes Alcohol intake: never Patient Tobacco Use Status: Never used Tobacco Second Hand Smoke Exposure: No Advance Directives Date on File: 11/26/20 service: No Current occupational status: disabled Current occupation: rt handed Female Reproductive History Menstrual Age of Menarche: 12 Review of Systems Const All systems reviewed & are unremarkable except as noted in HPI and below Physical Exam Vital Signs: Last Vital Signs Pulse 74 06/28/25 14:48 BP 140/60 H 06/28/25 14:48 Pulse Ox 96 06/28/25 14:48 Oxygen Delivery Method Room Air 06/28/25 14:48 BMI result Body Mass Index 26.5 Const General: comfortable and no acute distress Orientation/consciousness: patient oriented x3 HEENT Head: Yes normocephalic Mouth: Normal oral and palatal mucosa present Eyes EOM: EOMs intact bilaterally Neck Neck: Yes supple Resp Auscultation: clear to auscultation bilaterally Cardio Jugular venous distension: no JVD Rate: regular rate GI Palpation (GI): Soft to palpation Auscultation: normal bowel sounds General: Yes no CVA tenderness Back/Spine/Pelvis Back: no CVA tenderness Skin General skin exam: no rashes or lesions noted Neuro General: patient oriented x3 and moves all extremities Extrem General: Yes no pedal edema Results Reviewed Nephrology Results: Sodium, (135-145) 143 mmol/L 06/24/25 Potassium, (3.3-5.1) 4.9 mmol/L 06/24/25 Chloride, (96-108) 110 mmol/L H 06/24/25 Carbon Dioxide, (22-29) 28 mmol/L 06/24/25 BUN, (9-16) 45 mg/dL H 06/24/25 Creatinine, (0.5-1.4) 1.65 mg/dL H 06/24/25 Calcium, (8.4-10.2) 9.1 mg/dL 04/16/25 Assessment & Plan Assessment & Plan (1) Hypertension: Code(s): I10 - Essential (primary) hypertension Category: Medical Qualifiers: Hypertension type: primary hypertension Qualified Code(s): I10 - Essential (primary) hypertension (2) Diabetic nephropathy associated with type 2 diabetes mellitus: Code(s): E11.21 - Type 2 diabetes mellitus with diabetic nephropathy Category: Medical (3) CKD stage 3 due to type 2 diabetes mellitus: Code(s): E11.22 - Type 2 diabetes mellitus with diabetic chronic kidney disease; N18.30 - Chronic kidney disease, stage 3 unspecified Category: Medical Plan Sindi has 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 Her renal biopsy in the past showed significant disease from diabetes and hypertension. She had been off angiotensin receptor claude now, since she had hyperkalemia. I plan to restart it later. She should be on a low-potassium diet. She should continue Jardiance 25 mg daily . She needs to increase hydration. She should maintain a tighter blood sugar control. She should cut back sodium in the diet and lose weight. She should maintain good hydration and avoid nonsteroidal anti-inflammatories. C/W Kayexalate 30 Gram twice a week for now. I have ordered follow up blood work. Follow up appointment given Orders: Orders Creatinine 3 Months E11.21 - Type 2 diabetes mellitus with diabetic nephropathy, E11.22 - Type 2 diabetes mellitus with diabetic chronic kidney disease, I10 - Essential (primary) hypertension, N18.30 - Chronic kidney disease, stage 3 unspecified Electrolytes 3 Months E11.21 - Type 2 diabetes mellitus with diabetic nephropathy, E11.22 - Type 2 diabetes mellitus with diabetic chronic kidney disease, I10 - Essential (primary) hypertension, N18.30 - Chronic kidney disease, stage 3 unspecified Blood Urea Nitrogen 3 Months E11.21 - Type 2 diabetes mellitus with diabetic nephropathy, E11.22 - Type 2 diabetes mellitus with diabetic chronic kidney disease, I10 - Essential (primary) hypertension, N18.30 - Chronic kidney disease, stage 3 unspecified Coding Level of Care Code Est Pt Level 4 (53287) Diagnoses Primary hypertension I10 Hypertension type: primary hypertension Diabetic nephropathy associated with type 2 diabetes mellitus E11.21 CKD stage 3 due to type 2 diabetes mellitus E11.22; N18.30
[2025-06-28 14:48] VITALS: BP 140/60; PULSE 74; O2SAT 96; BMI 26.5
--- OUTSIDE RECORDS SUMMARY | 2025-06-28 18:41 | XMS_ITS | Encounter Summary ---
Author Organization [employer] Address [address] [facility] 7t [place] [address] Care Team Providers Care Manager Sql Name Role Phone Ventura Tavares MD Primary Care Provide r Garrison Silverio MD Unavailable Encounter Details Date Type Department Care Team ([facility] Contact Info) Description 04/07/2023 Telephone [facility] [address] [place] [phone] Ventura Tavares MD [address] [place] [address] [phone] Social History Tobacco Use Types Packs/Day Years [...] Description 07/02/2025 1:00 PM EST Medication Management [facility] [address] [place] [phone] Segundo Cruz, Annette [address] [place] [address] 09/19/2025 11:30 AM EST Office Visit [facility] [address] [place] [address] Ventura Tavares MD [address] [place] [address] documented as of this encounter Visit Diagnoses Not on filedocumented in this encounter Additional Health Concerns Assessment Noted Time PHQ-9 Depression Total Score: 12 023 10:55 AM EDT documented as of this encounter Care Teams Manager Sql Relationship Specialty Start Date End Date Ventura Tavares MD [address] [place] [address] PCP - General Internal Medicine 03/11/14 Garrison Silverio MD [address] [place] [address] Drive [address] [place] [address] Nephrology 11/29/24 documented as of this encounter
--- OUTSIDE RECORDS SUMMARY | 2025-06-28 18:41 | XMS_ITS | Encounter Summary ---
Author Organization [employer] Address [address] [facility] 7t [place] [address] Care Team Providers Care Wood Coater Name Role Phone Ventura Tavares MD Primary Care Provide r Garrison Silverio MD Unavailable Encounter Details Date Type Department Care Team (Late st Contact Info) Description 06/24/2025 Orders Only GENERIC EXTERNAL DATA DEPARTMENT Provider, [...] Description 07/02/2025 1:00 PM EST Medication Management [address] [address] Segundo Cruz, PharmD [address] [place] [address] 09/19/2025 11:30 AM EST Office Visit [address] [address] Ventura Tavares MD [address] [place] [address] documented as of this encounter Goals Goal [...] Care Plan Weekly blood pressure task No Georges, Elizabeth Weekly blood pressure task Care Plan Weekly blood pressure task No Georges, Elizabeth Weekly blood pressure task Care Plan Weekly blood pressure task No Georges, Elizabeth Patient has diabetic eye disease Care Plan Patient has diabetic eye disease No Georges, Elizabeth Patient has diabetic eye disease Care Plan Patient has diabetic eye disease No Georges, Elizabeth Patient has diabetic eye disease Care Plan Patient has diabetic eye disease No Georges, Elizabeth Patient has chronic kidney disease Care Plan Patient has chronic kidney disease No Georges, Elizabeth Patient has chronic kidney disease Care Plan Patient has chronic kidney disease No Georges, Elizabeth Patient has chronic kidney disease Care Plan Patient has chronic kidney disease No Georges, Elizabeth Weekly blood pressure task Care Plan Weekly blood pressure task No Tuesday, Yesy Weekly blood pressure task Care Plan Weekly blood pressure task No Tuesday, Yesy Weekly blood pressure task Care Plan Weekly blood pressure task No Tuesday, Yesy Patient has diabetic eye disease Care Plan Patient has diabetic eye disease No Tuesday, Yesy Patient has diabetic eye disease Care Plan Patient has diabetic eye disease No Tuesday, Yesy Patient has diabetic eye disease Care Plan Patient has diabetic eye disease No Tuesday, Yesy Patient has chronic kidney disease Care Plan Patient has chronic kidney disease No Tuesday, Yesy Patient has chronic kidney disease Care Plan Patient has chronic kidney disease No Tuesday, Yesy Patient has chronic kidney disease Care Plan Patient has chronic kidney disease No Tuesday, Yesy documented as of this encounter Procedures Procedure Name Priority Date/Time Associated Diagnosis Comments CREATININE, SERUM Routine 06/24/2025 10: 57 AM EST UREA NITROGEN (BUN) Routine 06/24/2025 1 0:57 AM EST ELECTROLYTE PANEL Routine 06/24/2025 10: 57 AM EST documented in this encounter Results * (ABNORMAL) Creatinine, Serum (06/24/2025 10:57 AM EST) Creatinine, Serum 1.65(H) 0.5 - 1.4 mg/dL [facility] Estimated Glomerular Filt Rate 30 [facility] Comment:Chronic Kidney Disea se: Estimated GFR < 60 mL/min/[id number] Kidney Disease: Estimated GFR < 15 mL/min/1.73m2 06/24/2025 10:5 7 AM EST 06/24/2025 1:06 PM EST us Generic External Data Provider LAB BLOOD ORDERAB LES Final Result Performing Organization Address [facility] de Phone Number [facility] [address] [place] [address] [phone] * (ABNORMAL) BUN (Blood Urea Nitrogen) (06/24/2025 10:57 AM EST) Urea Nitrogen (BUN) 45(H) 9 - 16 mg/dL [facility] 06/24/2025 10:5 7 AM EST 06/24/2025 1:06 PM EST us Generic External Data Provider LAB BLOOD ORDERAB LES Final Result Performing Organization Address [facility] de Phone Number [facility] [address] [place] [address] [phone] * (ABNORMAL) Electrolyte Panel (06/24/2025 10:57 AM EST) Sodium 143 135 - 145 mmol/L [facility] Potassium 4.9 3.3 - 5.1 mmol/L [facility] Chloride 110(H) 96 - 108 mmol/L [facility] Carbon Dioxide 28 22 - 29 mmol/L [facility] Anion Gap 10(L) 12 - 20 [facility] 06/24/2025 10:5 7 AM EST 06/24/2025 1:06 PM EST Generic External Data Provider LAB BLOOD ORDERAB LES Final Result Performing Organization Address [facility] Co de Phone Number [facility] [address] [place] [address] [phone] documented in this encounter Visit Diagnoses Not on filedocumented in this encounter Additional Health Concerns Active [...] kidney disease 06/18/2025 Weekly blood pressure task 06/24/2025 Weekly blood pressure task 06/24/2025 Weekly blood pressure task 06/24/2025 Patient has diabetic eye disease 06/24/2025 Patient has diabetic eye disease 06/24/2025 Patient has diabetic eye disease 06/24/2025 Patient has chronic kidney disease 06/24/2025 Patient has chronic kidney disease 06/24/2025 Patient has chronic kidney disease 06/24/2025 Assessment Noted Time PHQ-9 Depression Total Score: 0 05/15/20 24 10:57 AM EDT documented as of this encounter Care Teams Wood Coater Relationship Specialty Start Date End Date Ventura Tavares MD [address] [place] [address] PCP - General Internal Medicine 03/11/14 Garrison Silverio MD [address] [place] [address] [place] [address] Nephrology 11/29/24 documented as of this encounter
--- OUTSIDE RECORDS SUMMARY | 2025-06-28 18:41 | XMS_ITS | Clinical Summary ---
Author Organization [facility] Address [address] [place] [address] [address] [place]OS[place]N [phone] Phone Care Team Providers Care Sales Apprentice Name Role Phone Ventura Schulz MD Primary [...] & Plan: Improving Pt seen at our [facility] by Dr Demarcus Larry, [place] negative [...] patient's age to complete this topic [place] [address] ([id number]) MAZIN SINGER [phone] [facility] ([id number]) MAZIN SINGER [phone] Care Teams Sales Apprentice Relationship Specialty Start Date End Date Ventura Schulz MD [address] [place] [address] PCP - General 08/04/20
--- OUTSIDE RECORDS SUMMARY | 2025-06-28 18:41 | XMS_ITS | Encounter Summary ---
Author Organization [employer] Address [address] [place] [address] 7t [place] [address] Care Team Providers Care Furniture Shampooer Name Role Phone Ventura Tavares MD Primary Care Provide r Garrison Silverio MD Unavailable Encounter Details Date Type Department Care Team (Late st Contact Info) Description 12/01/2022 Abstract [facility] [address] [place] [address] Ventura Tavares MD [address] [place] [address] Social History Tobacco Use Types Packs/Day Years [...] Description 07/02/2025 1:00 PM EST Medication Management [address] [address] Segundo rCuz, PharmD [address] [place] [address] 09/19/2025 11:30 AM EST Office Visit [address] [address] Ventura Tavares MD 230 [facility] [address] documented as of this encounter Procedures Procedure Name Priority Date/Time Associated Diagnosis Comments COLONOSCOPY Routine 09/01/2015 documented in this encounter Results * Colonoscopy (09/01/2015) Colonoscopy Normal Normal 09/01/2015 Narrative Brittany Galarza - 09/01/2015 11:54 AM EST Recommended 10 year follow up Historical Provider [facility] Edited Result - Final documented in this encounter Visit Diagnoses Not on filedocumented in this encounter Care Teams Furniture Shampooer Relationship Specialty Start Date End Date Ventura Tavares MD 230 [facility] [place] [address] PCP - General Internal Medicine 03/11/14 Garrison Silverio MD [address] [place] [address] Nephrology 11/29/24 documented as of this encounter
--- OUTSIDE RECORDS SUMMARY | 2025-06-28 18:41 | XMS_ITS | Encounter Summary ---
Author Organization [employer] Address [address] [facility] 7t [place] [address] Care Team Providers Care Doubling Machine Operator Name Role Phone Ventura Tavares MD Primary Care Provide r Garrison Silverio MD Unavailable Reason for Referral * Consultation (Routine) - Authorized Specialty Diagnoses / Procedures Referred By Contac t Referred To Contact Pharmacy Diagnoses Hypertension Mary Mayer MD [address] [place] [address] Phone: tel: fax: Referral ID Status Reason Start Date Expiration Date Visits Requested Visits Authorized [id number] Authorized Continuity of Care 06/13/2025 06/13/2026 6 6 Encounter Details Date Type Department Care Team ([facility] st Contact Info) Description 06/11/2025 Orders Only [facility] [address] [place] [phone] Ventura Tavares MD [address] [place], [place] [phone] Hypertension (Primary Dx) Social History Tobacco Use [...] Description 07/02/2025 1:00 PM EST Medication Management [facility] [address] [place] [phone] Segundo Cruz, PharmD [address] [place] [address] 09/19/2025 11:30 AM EST Office Visit [facility] [address] [place] [address] Ventura Tavares MD [address] [place] [address] Scheduled Referrals Name Type Priority Associated Diagnoses [...] Care Plan Weekly blood pressure task No hCelsy Brown Patient has diabetic eye disease Care [...] documented as of this encounter Care Teams Doubling Machine Operator Relationship Specialty Start Date End Date Ventura Tavares MD [address] [place] [address] PCP - General Internal Medicine 03/11/14 Garrison Silverio MD [address] [place] [address] Drive [address] [place] [address] Nephrology 11/29/24 documented as of this encounter
--- OUTSIDE RECORDS SUMMARY | 2025-06-28 18:41 | XMS_ITS | Encounter Summary ---
Author Organization [employer] Address 75 [facility] [address] 7t [place] [address] Care Team Providers Care Renewable Energy Consultant Name Role Phone Ventura Tavares MD Primary Care Provide r Garrison Silverio MD Unavailable Encounter Details Date Type Department Care Team (Late st Contact Info) Description 07/05/[address] [facility] [address] [place] [address] Ventura Tavares MD 230 [place], [place] [phone] Social History Tobacco Use Types Packs/Day Years [...] 07/05/2023 2:11 PM EST Tc from [employer] (INCINERATOR PLANT GENERAL SUPERVISOR) with [employer] calling to advise provider, a home assessment was done on behalf of [employer]and pt A1C came out to be 10.8 Any questions, contact [employer] at [phone] documented in this encounter Plan of Treatment Upcoming Encounters Date Type Department Care Team (Late st Contact Info) Description 07/02/2025 1:00 PM EST Medication Management [facility] [address] [place] [phone] Segundo Cruz, PharmD [address] [place] [address] 09/19/2025 11:30 AM EST Office Visit [facility] [address] [place] [address] Ventura Tavares MD [address] [place] [address] documented as of this encounter Visit Diagnoses Not on filedocumented in this encounter Additional Health Concerns Assessment Noted Time PHQ-9 Depression Total Score: 12 023 10:55 AM EDT documented as of this encounter Care Teams Renewable Energy Consultant Relationship Specialty Start Date End Date Ventura Tavares MD [address] [place] [address] PCP - General Internal Medicine 03/11/14 Garrison Silverio MD [address] [place] [address] [place] [address] Nephrology 11/29/24 documented as of this encounter
--- OUTSIDE RECORDS SUMMARY | 2025-06-28 18:41 | XMS_ITS | Encounter Summary ---
Author Organization [employer] Address [address] [facility] [address] 7t [place] [address] Care Team Providers Care Order Processing Specialist Name Role Phone Ventura Tavares MD Primary Care Provide r Garrison Silverio MD Unavailable Reason for Visit * Reason Comments Med Refill Encounter Details Date Type Department Care Team ([facility] st Contact Info) Description 11/20/[address] [facility]INE [address] [place] [address] Ventura Tavares MD 230 [place] [address] Pain Social History Tobacco Use Types Packs/Day [...] Description 07/02/2025 1:00 PM EST Medication Management [address] [address] Segundo Cruz, PharmD [address] [place] [address] 09/19/2025 11:30 AM EST Office Visit [address] [address] Ventura Tavares MD [address] [place] [address] documented as of this encounter Visit Diagnoses Diagnosis Pain Generalized pain documented in this encounter Additional Health Concerns Assessment Noted Time PHQ-9 Depression Total Score: 0 05/15/20 24 10:57 AM EDT documented as of this encounter Care Teams Order Processing Specialist Relationship Specialty Start Date End Date Ventura Tavares MD [address] [place] [address] PCP - General Internal Medicine 03/11/14 Garrison Silverio MD [address] [place] [address] Drive [address] [place] [address] Nephrology 11/29/24 documented as of this encounter
--- OUTSIDE RECORDS SUMMARY | 2025-06-28 18:41 | XMS_ITS | Encounter Summary ---
Author Organization [employer] Address [address] 7t [place] [address] Care Team Providers Care Audio Director Name Role Phone Ventura Tavares MD Primary Care Provide r Garrison Silverio MD Unavailable Encounter Details Date Type Department Care Team (Late st Contact Info) Description 01/04/2023 Orders Only [facility] [address] [place] [address] Aime Bland MD 230 [place], [place] [phone] Dyspnea, unspecified type (Primary Dx) Social History [...] Description 07/02/2025 1:00 PM EST Medication Management [address] [phone] Segundo Cruz, PharmD 230 [place] [address] 09/19/2025 11:30 AM EST Office Visit [address] [phone] Ventura Tavares MD [address] [place] [address] [phone] Scheduled Orders Name Type Priority Associated Diagnoses [...] PM EDT Narrative 01/04/2023 2:57 PM EDT [address] [address] XRay Report Signed Patient: Sindi Obrien MR#: [id number] : 1950 Acct:[id number] Age/Sex: 72 / F ADM Date: 01/04/23 Loc: .HHX Attending Dr: Aime Blnad MD Ordering Physician: AIME BLAND MD Date of Service: 01/04/23 Procedure(s): XR chest 2V Accession Number(s): [id number] cc: AIME BLAND MD EXAMINATION: XR CHEST [...] MD in OV> 01/04/231453 DD/ 1420 TD/TT: Machinist General: HERSON Procedure Note Donotuseinterpreter, Image - 01/19/2023 [facility] [address] [place] [address] XRay Report Signed Patient: Sindi ObrienMR#: [id number] : [id number]:[id number] Age/Sex: 72 / FADM Date: 01/04/23 Loc: HO.HHCX Attending Dr: Aime Bland MD Ordering Physician: AIME BLAND MD Date of Service: 01/04/23 Procedure(s): XR chest 2V Accession Number(s): [id number] cc: AIME BLAND MD EXAMINATION: XR CHEST [...] MD in OV> 01/04/231453 DD/ 1420 TD/TT: Machinist General: [facility] External Provider IMG XR PROCEDURES Final Result documented in this encounter Visit Diagnoses Diagnosis Dyspnea, unspecified type- Primary documented in this encounter Additional Health Concerns Assessment Noted Time PHQ-9 Depression Total Score: 12 023 10:55 AM EDT documented as of this encounter Care Teams Audio Director Relationship Specialty Start Date End Date Ventura Tavares MD [address] [place] [address] PCP - General Internal Medicine 03/11/14 Garrison Silverio MD [address] [place] [address] Drive [address] [place] [address] Nephrology 11/29/24 documented as of this encounter
--- OUTSIDE RECORDS SUMMARY | 2025-06-28 18:41 | XMS_ITS | Encounter Summary ---
Author Organization [employer] Address [address] [facility] [address] 7t [place] [address] Care Team Providers Care Mortgage Originator Name Role Phone Ventura Tavares MD Primary Care Provide r Garrison Silverio MD Unavailable Reason for Visit * Reason Comments Med Refill Encounter Details Date Type Department Care Team ([facility] st Contact Info) Description 05/21/2025 Refill [facility] 230 [place] [address] Ventura Tavares MD 230 [place] [address] Mixed hyperlipidemia Social History Tobacco Use Types [...] Description 07/02/2025 1:00 PM EST Medication Management [address] [address] Segundo Cruz, PharmD [address] [place] [address] 09/19/2025 11:30 AM EST Office Visit [address] [address] Ventura Tavares MD [address] [place] [address] documented as of this encounter Visit Diagnoses Diagnosis Mixed hyperlipidemia documented in this encounter Additional Health Concerns Assessment Noted Time PHQ-9 Depression Total Score: 0 05/15/20 24 10:57 AM EDT documented as of this encounter Care Teams Mortgage Originator Relationship Specialty Start Date End Date Ventura Tavares MD [address] [place] [address] PCP - General Internal Medicine 03/11/14 Garrison Silverio MD [address] [place] [address] Drive [address] [place] [address] Nephrology 11/29/24 documented as of this encounter
--- OUTSIDE RECORDS SUMMARY | 2025-06-28 18:41 | XMS_ITS | Encounter Summary ---
Author Organization [employer] Address [address] [facility] [address] 7t [place] [address] Care Team Providers Care Supervisor Sign Shop Name Role Phone Ventura Tavares MD Primary Care Provide r Garrison Silverio MD Unavailable Reason for Visit * Reason Comments Med Refill Encounter Details Date Type Department Care Team ([facility] st Contact Info) Description 05/23/2025 Refill [facility]INE 230 [place] [address] Ventura Tavares MD 230 [place], [place] [phone] Mixed hyperlipidemia; Pain Social History Tobacco Use [...] 1:00 PM EST Medication Management [facility] MEDICINE [address] [place] [address] Segundo Cruz, PharmD [address] [place] [address] 09/19/2025 11:30 AM EST Office Visit [facility] MED[facility]INE [address] [place] [address] Ventura Tavares MD [address] [place] [address] documented as of this encounter Visit Diagnoses Diagnosis Mixed hyperlipidemia Pain Generalized pain documented in this encounter Additional Health Concerns Assessment Noted Time PHQ-9 Depression Total Score: 0 05/15/20 24 10:57 AM EDT documented as of this encounter Care Teams Supervisor Sign Shop Relationship Specialty Start Date End Date Ventura Tavares MD [address] [place] [address] PCP - General Internal Medicine 8/18/14 Garrison Silverio MD [address] [place] [address] Drive [address] [place] [address] Nephrology 11/29/24 documented as of this encounter
--- OUTSIDE RECORDS SUMMARY | 2025-06-28 18:41 | XMS_ITS | Encounter Summary ---
Author Organization [email or web address] Address [address] [facility] [address] 7t [place] [address] Care Team Providers Care Senior Sales Associate Name Role Phone Ventura Tavares MD Primary Care Provide r Garrison Silverio MD Unavailable Reason for Visit * Reason Comments Med Refill Encounter Details Date Type Department Care Team ([facility] st Contact Info) Description 05/27/2025 Refill [facility] 230 [place] [address] Ventura Tavares MD 230 [place], [place] [phone] Mixed hyperlipidemia; Pain Social History Tobacco Use [...] Description 07/02/2025 1:00 PM EST Medication Management [facility] MED[facility]INE [address] [place] [phone] Segundo Cruz, PharmD [address] [place] [place] [address] 09/19/2025 11:30 AM EST Office Visit [facility] MEDICINE [address] [place] [address] Ventura Tavares MD [address] [place] [place] [address] documented as of this encounter Visit Diagnoses Diagnosis Mixed hyperlipidemia Pain Generalized pain documented in this encounter Additional Health Concerns Assessment Noted Time PHQ-9 Depression Total Score: 0 05/15/20 24 10:57 AM EDT documented as of this encounter Care Teams Senior Sales Associate Relationship Specialty Start Date End Date Ventura Tavares MD [address] [place] [place] [address] PCP - General Internal Medicine 8/18/14 Garrison Silverio MD [address] [place] [address] Drive [address] [place] [address] Nephrology 11/29/24 documented as of this encounter
--- OUTSIDE RECORDS SUMMARY | 2025-06-28 18:41 | XMS_ITS | Encounter Summary ---
Author Organization [employer] Address 75 [facility] 7t [place] [address] Care Team Providers Care Construction Engineering Manager Name Role Phone Ventura Tavares MD Primary Care Provide r Garrison Silverio MD Unavailable Encounter Details Date Type Department Care Team ([facility] Contact Info) Description 03/02/2023 Orders Only [facility] [address] [place] [address] Terra Hannon LPN Social History Tobacco Use [...] Encounters Date Type Department Care Team ([facility] Contact Info) Description 07/02/2025 1:00 PM EST Medication Management [facility] 230 [place], [place] [phone] Segundo Cruz, PharmD [address] [place], [place] [phone] 09/19/2025 11:30 AM EST Office Visit [facility] [address] [place], [place] [phone] Ventura Tavares MD [address] [place] [address] documented as of this encounter Visit Diagnoses Not on filedocumented in this encounter Additional Health Concerns Assessment Noted Time PHQ-9 Depression Total Score: 12 023 10:55 AM EDT documented as of this encounter Care Teams Construction Engineering Manager Relationship Specialty Start Date End Date Ventura Tavares MD [address] [place], [place] [phone] PCP - General Internal Medicine 03/11/14 Garrison Silverio MD [address] [place] [address] Nephrology 11/29/24 documented as of this encounter
--- OUTSIDE RECORDS SUMMARY | 2025-06-28 18:41 | XMS_ITS | Encounter Summary ---
Author Organization [employer] Address 75 [facility] 7t [place] [address] Care Team Providers Care Glass Tube Bender Name Role Phone Ventura Tavares MD Primary Care Provide r Garrison Silverio MD Unavailable Reason for Visit * Reason Onset Date Comments ER Follow-up 10/25/2022 Encounter Details Date Type Department Care Team ([facility] st Contact Info) Description 10/25/2022 Telephone [facility] MEDICINE 230 [place], [place] [phone] Ventura Tavares MD 230 [place], [place] [phone] ER Follow-up Social History Tobacco Use Types [...] to report ED visit on 10/25/22 at [facility]. Diagnosed with fall. Patient advised will forward to team nurse for follow up. documented in this encounter Plan of Treatment Upcoming Encounters Date Type Department Care Team (Late st Contact Info) Description 07/02/2025 1:00 PM EST Medication Management [address] [address] Segundo Cruz, Annette [address] [place] [address] 09/19/2025 11:30 AM EST Office Visit [address] [address] Ventura Tavares MD [address] [place] [address] documented as of this encounter Visit Diagnoses Not on filedocumented in this encounter Care Teams Glass Tube Bender Relationship Specialty Start Date End Date Ventura Tavares MD [address] [place] [address] PCP - General Internal Medicine 03/11/14 Garrison Silverio MD [address] [facility] [address] [place] [address] Nephrology 11/29/24 documented as of this encounter
--- OUTSIDE RECORDS SUMMARY | 2025-06-28 18:41 | XMS_ITS | Encounter Summary ---
Author Organization [employer] [facility] Address [address] [facility] 7t [place] [address] Care Team Providers Care Dry Wall Installer Name Role Phone Ventura Tavares MD Primary Care Provide r Garrison Silverio MD Unavailable Reason for Visit * Reason Comments Med Refill Encounter Details Date Type Department Care Team (Late Contact Info) Description 02/24/2023 Refill [facility] MEDICINE [address] [place] [address] Ventura Tavares MD 230 [place] [address] Pain Social History Tobacco Use Types Packs/Day [...] Medication Management [facility] MEDICINE [address] [place] [address] Segundo Cruz, PharmD [address] [place] [address] 09/19/2025 11:30 AM EST Office Visit [facility] MEDICINE 230 [place], [place] [phone] Ventura Tavares MD [address] [place], [place] [phone] documented as of this encounter Visit Diagnoses Diagnosis Pain Generalized pain documented in this encounter Additional Health Concerns Assessment Noted Time PHQ-9 Depression Total Score: 12 023 10:55 AM EDT documented as of this encounter Care Teams Dry Wall Installer Relationship Specialty Start Date End Date Ventura Tavares MD [address] [place] [address] PCP - General Internal Medicine 03/11/14 Garrison Silverio MD [address] [place] [address] Drive [address] [place] [address] Nephrology 11/29/24 documented as of this encounter
--- OUTSIDE RECORDS SUMMARY | 2025-06-28 18:41 | XMS_ITS | Clinical Summary ---
Author Organization [employer] Address [address] [facility] [address] [place] [address] Care Team Providers Care Office Auditor Name Role Phone Ventura Tavares MD Primary [...] Continuous Glucose Sensor (FreeStyle Blake 3 Sensor) [facility] USE DIRECTED TO CHECK BLOOD SUGAR CHANGE [...] (06/18/2025 1:21 PM EST): Pt seen at [facility] ER with c/o vaginal spoting. As per ER Pelvic exam showed no signs of bleeding at the time of the exam. 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 Cosme's office (her home service demonstrator), pt was seen 12/27/2023. We notified the office that her coin collector Dr. Silverio prescribes Lasix 20 mg 2 tabs po daily. Patient followed by Dr Cosme Service Specialist, Previous Stress Test and ECHO unremarkable. Last seen 01/01/2025 Assessment & Plan (09/04/2024 2:02 PM EST): Seen initially by Dr Demarcus Larry with c/o LE edema and elevated BNP, CXR was unermarkable. Dr. Larry spoke with Dr. Cosme's office (her home service demonstrator), pt was seen 12/27/2023. We notified the office that her coin collector Dr. Silverio prescribes Lasix 20 mg 2 tabs po daily. Patient followed by Dr Cosme Service Specialist, Previous Stress Test and ECHO unremarkable. Last seen 07/03/2024. Assessment & Plan (05/15/2024 1:05 PM EDT): Seen initially by Dr Demarcus Larry with c/o LE edema and elevated BNP, CXR was unermarkable. Dr. Larry spoke with Dr. Cosme's office (her home service demonstrator), pt was seen 12/27/2023. We notified the office that her coin collector Dr. Silverio prescribes Lasix 20 mg 2 tabs po daily. Patient followed by Dr Cosme Service Specialist, Previous Stress Test and ECHO unremarkable. Last seen 12/27/2023. Assessment & Plan (09/22/2023 11:38 AM EST): Seen by Dr Demarcus Larry with c/o LE edema, referred to cardiology seen by Dr Cosme Service Specialist, Stress Test and ECHO unremarkable Assessment & Plan (01/18/2023 10:50 AM EDT): Seen by Dr Demarcus Larry with c/o LE edema, referred to cardiology seen by Dr Cosme 01/06/2023 ECHO ordered [facility] 01/18/2023 Assessment & Plan (12/04/2024 [...] kidney disease (CKD) , stage III (moderate) ([facility]) 04/06/2012 Assessment & Plan (06/18/2025 1:11 PM [...] 2:14 PM EST): Seeing Trinh Su at [facility] Hyperlipidemia 04/06/2012 Assessment & Plan (12/04/2024 [...] Plan: As per Endocrinology Eye exam with Septic Tank Servicer [facility] 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 Last [...] Plan: As per Endocrinology Eye exam with Septic Tank Servicer [facility] diagnosed with Dr. both eyes. Last seen 12/06/2023 Pt does not adhere to a diabetic diet, does not want to go any higher on her insulin dose as it was recommended by her Drying Oven Attendant. 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 Last seen 12/06/2023 Pt does not adhere to a diabetic diet, does not want to go any higher on her insulin dose as it was recommended by her Drying Oven Attendant. Pt advised to Adhere to diabetic diet [...] 81 mg po daily. 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 Pt advised to Adhere to diabetic diet [...] 81 mg po daily. 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 Pt advised to Adhere to diabetic diet [...] 81 mg po daily. 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 Pt advised to Adhere to diabetic diet [...] 81 mg po daily. 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 Pt advised to Adhere to diabetic diet [...] 81 mg po daily. 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 Pt advised to Adhere to diabetic diet [...] Encounters Date Type Department Care Team Description 06/24/2025 Orders Only GENERIC EXTERNAL DATA DEPARTMENT Provider, Generic External Data 06/18/2025 1:00 PM EST Office Visit [address] [address] Ventura Tavares MD [place] (dyspnea on exertion) (Primary Dx); Type 2 diabetes mellitus with stage 3a chronic kidney disease, with long-term current use of insulin (HCC); Stage 3a chronic kidney disease (CMS/HCC) (HCC); Abnormal CT scan, bladder; Abnormal CT scan, stomach; Postmenopausal bleeding 06/18/2025 Travel 06/14/2025 Telephone [facility] [address] [place] [phone] Ventura Tavares MD CHART PREP 06/11/2025 Orders Only [address] [address] Ventura Tavares MD Hypertension (Primary Dx) 06/11/2025 Patient Outreach [address] [address] Ventura Tavares MD Care Coordination (CHW outreach for SDOH food needs-LVM ) 06/10/2025 Patient Outreach [address] [address] Ventura Tavares MD Pre-visit Planning (SDOH Screening positive and Tobacco screening negative) 05/27/2025 Refill [facility] [address] [facility] [place] [address] Ventura Tavares MD Mixed hyperlipidemia; Pain 05/23/2025 Refill [facility]IC[facility] [address] [place] [address] Ventura Tavares MD Mixed hyperlipidemia; Pain 05/21/2025 Refill [facility] [address] [facility] [place] [address] Ventura Tavares MD Mixed hyperlipidemia 05/13/2025 Refill [facility] [address] [facility] [place] [address] Ventura Tavares MD Mixed hyperlipidemia; Pain 05/09/2025 Telephone [facility] [address] [place] [address] Ventura Tavares MD 04/29/2025 Orders Only GENERIC EXTERNAL DATA DEPARTMENT Provider, Generic External Data 04/22/2025 Abstract [facility] [address] [facility] [place] [address] Ventura Tavares MD 04/16/2025 Orders Only GENERIC [...] Description 07/02/2025 1:00 PM EST Medication Management [facility] [address] [place] [phone] Segundo Cruz, PharmD [address] [place] [address] 09/19/2025 11:30 AM EST Office Visit [facility] [address] [place] [phone] Ventura Tavares MD [address] [place] [address] Health Maintenance Due Date Last Done Comments [...] 11/29/2024, 03/0 02/2024, 12/31/2022, Additional history exists Diabetes: Hemoglobin A1C [...] task Care Plan Weekly blood pressure task Chelsy Lawrence Help patients manage their type 2 diabetes [...] Care Plan Weekly blood pressure task No Siliva Metz Weekly blood pressure task Care Plan [...] Care Plan Weekly blood pressure task No Georges Elizabeth Weekly blood pressure task Care Plan Weekly blood pressure task No Georges Elizabeth Weekly blood pressure task Care Plan [...] Plan Patient has chronic kidney disease No Georges Elizabeth Patient has chronic kidney disease Care Plan Patient has chronic kidney disease No Georges Elizabeth Patient has chronic kidney disease Care Plan Patient has chronic kidney disease No Georges Elizabeth Weekly blood pressure task Care Plan [...] Plan Patient has chronic kidney disease No Procedures Procedure Name Priority Date/Time Associated Diagnosis Comments CREATININE, SERUM Routine 06/24/2025 10: 57 AM EST UREA NITROGEN (BUN) Routine 06/24/2025 1 0:57 AM EST ELECTROLYTE PANEL Routine 06/24/2025 10: 57 AM EST POCT GLYCATED HEMOGLOBIN, TOTAL Routine 06/18/2025 1:00 [...] Health Maintenance Results * (ABNORMAL) Creatinine, Serum (06/24/2025 10:57 AM EST) Only the most recent of2 resultswithin the time period is included. Creatinine, Serum 1.65(H) 0.5 - 1.4 mg/dL [facility] Estimated Glomerular Filt Rate 30 [facility] Comment:Chronic Kidney Disea se: Estimated GFR < 60 mL/min/1.38e6Penkgs Kidney Disease: Estimated GFR < 15 mL/min/1.73m2 06/24/2025 10:5 7 AM EST 06/24/2025 1:06 PM EST us Generic External Data Provider LAB BLOOD ORDERAB LES Final Result Performing Organization Address [facility] Co de Phone Number [facility] [address] [place] [phone] * (ABNORMAL) BUN (Blood Urea Nitrogen) (06/24/2025 10:57 AM EST) Only the most recent of2 resultswithin the time period is included. Urea Nitrogen (BUN) 45(H) 9 - 16 mg/dL [facility] 06/24/2025 10:5 7 AM EST 06/24/2025 1:06 PM EST us Generic External Data Provider LAB BLOOD ORDERAB LES Final Result Performing Organization Address [facility] de Phone Number [facility] [address] [place] [phone] * (ABNORMAL) Electrolyte Panel (06/24/2025 10:57 AM EST) Only the most recent of2 resultswithin the time period is included. Sodium 143 135 - 145 mmol/L [facility] Potassium 4.9 3.3 - 5.1 mmol/L [facility] Chloride 110(H) 96 - 108 mmol/L [facility] Carbon Dioxide 28 22 - 29 mmol/L [facility] Anion Gap 10(L) 12 - 20 [facility] 06/24/2025 10:5 7 AM EST 06/24/2025 1:06 PM EST us Generic External Data Provider LAB BLOOD ORDERAB LES Final Result Performing Organization Address [facility]/ZIP Co de Phone Number [facility] [address] [place] [phone] * (ABNORMAL) POCT Hgb A1c (06/18/2025 1:00 PM EST) Hemoglobin A1C 6.8(A) 4.0 - 5.7 % QC Media Lot # [id number] Lot# Expiration Date Blood 06/18/2025 1:00 PM EST Ventura Maldonado MD POINT OF CARE TEST EN TER/EDIT ORDERABLES Final Result * (ABNORMAL) POCT Glucose (06/18/2025 12:59 PM EST) Glucose Blood, POC 201(A) 60 - 200 [...] Whole Blood 182(H) 60 - 115 mg/dL [facility] Comment:METER #: [id number] 0Testing performed in the Endocrinology Department [address] , [address], [facility]. 04/29/2025 9:47 AM EDT 04/29/2025 9:52 AM EDT Generic External Data Provider LAB BLOOD ORDERAB LES Final Result [facility] [address] [place] [phone] * Hm Mammography (04/22/2025 1:34 PM EDT) Mammogram BIRADS 2 Normal, Abnormal, BIRADS 1 , BIRADS 2 Comment:1 year Anatomical Region Laterality Modality Other us Historical Provider HEALTH MAINTENANCE Final Result * BI Mammogram Screening Tomosynthesis Bilateral (04/17/2025 1:30 PM EDT) Anatomical Region Laterality Modality Breast Bilateral Mammography 04/17/2025 1:30 PM EDT Narrative 04/19/2025 6:43 PM EDT [facility] [address] [place] [address] Mammography Report Signed Patient: Sindi Obrien MR#: [id number] : 1950 Acct:[id number] Age/Sex: 74 / F ADM Date: 04/17/25 Loc: [facility] Attending Dr: Ventura Shi MD Ordering Physician: Ventura Shi MD Resu lts: 2Benign Date of Service: 04/17/25 Follow Up: 1 Year From [facility] Mammogram Procedure(s): MM tomosynthesis screening BI Accession Number(s): [id number] cc: Ventura Shi MD Reason For Exam: [...] 04/19/25 1840 DD/ 1330 TD/TT: 04/17/25 1349 [address] [employer] Operator: Procedure Note Donotuseinterpreter, Image - 04/19/2025 [facility] [address] [place] [address] Mammography Report Signed Patient: Sindi Obrien#: M [id number] : 2Acct:[id number] Age/Sex: 74 / FADM Date: 04/17/25 Loc: [facility] Attending Dr: Ventura Shi MD Ordering Physician: Ventura Shi MDResu lts: 2Benign Date of Service: 04/17/25Follow Up: 1 Year From Orig inal Mammogram Procedure(s): MM tomosynthesis screening BI Accession Number(s): [id number] cc: Ventura Shi MD Reason For Exam: [...] Hi MD 04/19/2025 06:40 PM EDT RP Workstation: [employer] Dictated By: Everett Hi MD Signed By: <Electronically signed by Everett Hi MD in OV> 04/19/25 1840 DD/ 1330 TD/TT: 04/17/25 1349 [address] [employer] Operator: us Ventura Maldonado MD IMG BI PROCEDURES Fin al Result * Calcium (04/16/2025 9:01 AM EDT) Calcium 9.1 8.4 - 10.2 mg/dL [facility] 04/16/2025 9:01 AM EDT 04/16/2025 11:26 AM EDT us Generic External Data Provider LAB BLOOD ORDERAB LES Final Result [facility] [address] [place] [phone] * Lipid Panel, Standard (11/29/2024 8:20 AM EDT) Triglycerides 56 <150 mg/dL [facility] Comment:Desirable Triglyceri de: less than 150 mg/dLBorderline High Triglyceride 150-199 mg/dLHigh Triglyceride: 200-499 mg/dLVery High Triglyceride: greater than or equal to 5OO mg/dL Cholesterol 131 <200 mg/dL [facility] Comment:Desirable Cholestero l: less than 200 mg/dLBorderline High Cholesterol: 200-239 mg/dLHigh Cholesterol: greater than 239 mg/dL LDL Cholesterol Calculated 54 <100 mg/dL [facility] Comment:Desirable LDL: less than 100 mg/dLNear Optimal/Above Optimal LDL: 110- 129 mg/dLBorderline High LDL: 130-159 mg/dLHigh LDL: 160-189 mg/dLVery High LDL: greater than or equal to 190 mg/dL HDL Cholesterol 66 >40 mg/dL [facility] Comment:Desirable HDL: great er than 40 mg/dL Note: This HDL assay may give artificially low results in patients with liver disease. Blood Venous blood specimen / Unknown 11/29/2024 8:20 AM EDT 11/29/2024 11:12 AM EDT Ventura Maldonado MD LAB BLOOD ORDERABLES Final Result [facility] [address] [place] [phone] * Colonoscopy (09/01/2015) Colonoscopy Normal Normal [...] 06/24/2025 Patient has chronic kidney disease 06/24/2025 Insurance [facility] USP OPTIONS (O D-SNP) [place] [id number] Care Teams Office Auditor Relationship Specialty Start Date End Date Ventura Tavares MD [address] [place] [address] PCP - General Internal Medicine 03/11/14 Garrison Silverio MD [address] [place] [address] Drive [address] [place] [address] Nephrology 11/29/24
--- OUTSIDE RECORDS SUMMARY | 2025-06-28 18:41 | XMS_ITS | Encounter Summary ---
Author Organization [employer] Address [address] [place] [address] 7[address] [place] [address] Care Team Providers Care Job Specification Writer Name Role Phone Ventura Tavares MD Primary Care Provide r Garrison Silverio MD Unavailable Encounter Details Date Type Department Care Team (Late st Contact Info) Description 07/09/2022 [facility] Health Information Management [address] [place] [address] Ventura Tavares MD [address] [place], [place] [phone] Social History Tobacco Use Types Packs/Day Years [...] Description 07/02/2025 1:00 PM EST Medication Management [facility] [address] [place] [phone] Segundo Cruz, PharmD [address] [place] [address] 09/19/2025 11:30 AM EST Office Visit [facility] [address] [place] [phone] Ventura Tavares MD [address] [place] [address] documented as of this encounter Procedures Procedure [...] (09/06/2022 10:34 AM EST) Color Urine Yellow [facility] Appearance Urine Clear [facility] PH 7.5 5.0 - 9.0 [facility] Glucose Urine UA 100(A) Negative mg/dL [facility] Urine Blood Negative Negative [facility] Specific [place] - Urine 1.020 1.005 - 1.025 [facility] Urine Protein 100 (2+)(A) Neg-Trace mg/dL [facility] Urine Ketones Negative Negative mg/dL [facility] Nitrite Urine Negative Negative [facility] Leukocyte Esterase Urine Negative Negative [facility] RBC Urine 0-2 0 - 2 /HPF [facility] Urine WBC 0-5 0 - 5 /HPF [facility] Urine Squamous Epithelial Cell 6-10 0 - 2 /HPF [facility] Urine Bacteria None Seen None Seen [facility] Hyaline Casts, Urine 0-2 0 - 2 /LPF [facility] 09/06/2022 10:3 4 AM EST 09/06/2022 10:38 AM EST Narrative [facility] - 09/06/2022 10:51 AM EST [id number], Clean Catch [facility] External Provider LAB URI NE ORDERABLES Final Result Performing Organization Address [facility]/ZIP Co de Phone Number [facility] [address] [place] [phone] * (ABNORMAL) Urinalysis with reflex microscopic (09/06/2022 10:34 AM EST) Color Urine Yellow [facility] Appearance Urine Clear [facility] PH 7.5 5.0 - 9.0 [facility] Glucose Urine UA 100(A) Negative mg/dL [facility] Urine Blood Negative Negative [facility] Specific [place] - Urine 1.020 1.005 - 1.025 [facility] Urine Protein 100 (2+)(A) Neg-Trace mg/dL [facility] Urine Ketones Negative Negative mg/dL [facility] Nitrite Urine Negative Negative [facility] Leukocyte Esterase Urine Negative Negative [facility] 09/06/2022 10:3 4 AM EST 09/06/2022 10:38 AM EST Narrative [facility] - 09/06/2022 10:45 AM EST [id number], Clean Catch [facility] External Provider LAB URI NE ORDERABLES Final Result Performing Organization Address [facility]/ZIP Co de Phone Number [facility] [address] [place] [phone] * (ABNORMAL) Comprehensive Metabolic Panel (09/06/2022 10:27 AM EST) Sodium 139 135 - 145 mmol/L [facility] Potassium 5.1 3.3 - 5.1 mmol/L [facility] Chloride 103 96 - 108 mmol/L [facility] Carbon Dioxide 29 22 - 29 mmol/L [facility] Anion Gap 12 12 - 20 [facility] Urea Nitrogen (BUN) 36(H) 9 - 16 mg/dL [facility] Creatinine, Serum 1.47(H) 0.5 - 1.4 mg/dL [facility] Creatinine Clr Calc Pharmacy 27.5 [facility] Comment:Provided height and weight: 134.62 cm,78.018 kg.eGFR (calculated from the MDRD study equation) and eCrCl(calculated from the Cockcroft-Gault equation) are based ondifferent parameters and may not yield comparable results.If eCrCl result is absurd, please check patient'sheight/weight. Estimated Glomerular Filt Rate 35 [facility] Comment:NOTE: For -Am erican individuals, multiply the result by 1.210.Chronic Kidney Disease: Estimated GFR < 60 mL/min/[id number] Kidney Disease: Estimated GFR < 15 mL/min/1.73m2 Glucose 190(H) 60 - 115 mg/dL [facility] Calcium 9.4 8.4 - 10.2 mg/dL [facility] Bilirubin, Total 0.6 0.0 - 1.0 mg/dL [facility] Aspartate Amino Transferase 18 5 - 31 U/L [facility] Alanine Aminotransferase 16 0 - 31 U/L [facility] Total Protein 6.9 6.5 - 8.0 g/dL [facility] Albumin Level 4.0 3.5 - 5.0 g/dL [facility] Alkaline Phosphatase 105 39 - 117 U/L [facility] 09/06/2022 10:2 7 AM EST 09/06/2022 10:31 AM EST us [facility] External Provider LAB BLO OD ORDERABLES Final Result [facility] [address] [place], [place] [phone] * (ABNORMAL) CBC auto differential (09/06/2022 10:27 AM EST) White Blood Count 6.5 4.8 - 10.8 X10*3/uL [facility] Red Blood Count 3.99(L) 4.20 - 5.50 X10*6/uL [facility] Hemoglobin 12.0 12.0 - 16.0 g/dl [facility] Hematocrit 36.2(L) 37.0 - 47.0 % [facility] Mean Corpuscular Volume 90.7 80.0 - 98.0 fL [facility] Mean Corpuscular Hemoglobin 30.1 27.0 - 33.0 pg [facility] Mean Corpuscular HGB Conc 33.1 31.0 - 35.0 g/dl [facility] Red Cell Distribution Width 11.6 11.0 - 16.0 % [facility] Platelet Count 194 160 - 400 X10*3/uL [facility] Mean Platelet Volume 10.6 9.4 - 12.3 fL [facility] Neutrophils Percent Auto 64.0 45 - 73 % [facility] Imm Gran Pct Auto 0.3 0.0 - 0.4 % [facility] Lymphocytes Percent Auto 22.6 20 - 40 % [facility] Monocytes Percent Auto 7.9 2 - 11 % [facility] Eosinophils Percent Auto 4.7(H) 0 - 4 % [facility] Basophils Percent Auto 0.5 0 - 2 % [facility] NRBC Pct Auto 0.0 0.0 - 0.2 /100WBC [facility] Neutrophils Absolute Auto 4.1 2.0 - 8.3 x10*3/uL [facility] Imm Gran Abs Auto 0.02 0.00 - 0.03 X10*3/uL [facility] Lymphocytes Absolute Auto 1.5 1.2 - 4.9 X10*3/uL [facility] Monocytes Absolute Auto 0.5 0.1 - 1.2 X10*3/uL [facility] Eosinophils Absolute Auto 0.3 0.0 - 0.4 X10*3/uL [facility] Basophils Absolute Auto 0.0 0.0 - 0.2 X10*3/uL [facility] NRBC Abs Auto 0.000 0.0 - 0.012 X10*3/uL [facility] 09/06/2022 10:2 7 AM EST 09/06/2022 10:31 AM EST [facility] External Provider LAB BLO OD ORDERABLES Final Result Performing Organization Address City/[facility]/ZIP Co de Phone Number [facility] [address] [place] [phone] * Calcium (08/03/2022 8:15 AM EST) Calcium 9.2 8.4 - 10.2 mg/dL [facility] 08/03/2022 8:15 AM EST 08/03/2022 10:30 AM EST [facility] External Provider LAB BLO OD ORDERABLES Final Result Performing Organization Address City/[facility] Co de Phone Number [facility] [address] [place] [address] [phone] * (ABNORMAL) Creatinine, Serum (08/03/2022 8:15 AM EST) Creatinine, Serum 1.54(H) 0.5 - 1.4 mg/dL [facility] Estimated Glomerular Filt Rate 33 [facility] Comment:NOTE: For -Am erican individuals, multiply the result by 1.210.Chronic Kidney Disease: Estimated GFR < 60 mL/min/[id number] Kidney Disease: Estimated GFR < 15 mL/min/1.73m2 08/03/2022 8:15 AM EST 08/03/2022 10:30 AM EST [facility] External Provider LAB BLO OD ORDERABLES Final Result Performing Organization Address [facility] de Phone Number [facility] [address] [place] [address] [phone] * (ABNORMAL) BUN (Blood Urea Nitrogen) (08/03/2022 8:15 AM EST) Urea Nitrogen (BUN) 39(H) 9 - 16 mg/dL [facility] 08/03/2022 8:15 AM EST 08/03/2022 10:30 AM EST [facility] External Provider LAB BLO OD ORDERABLES Final Result Performing Organization Address [facility] Phone Number [facility] [address] [place] [phone] * (ABNORMAL) Electrolyte Panel (08/03/2022 8:15 AM EST) Sodium 140 135 - 145 mmol/L [facility] Potassium 5.5(H) 3.3 - 5.1 mmol/L [facility] Chloride 106 96 - 108 mmol/L [facility] Carbon Dioxide 28 22 - 29 mmol/L [facility] Anion Gap 12 12 - 20 [facility] 08/03/2022 8:15 AM EST 08/03/2022 10:30 AM EST [facility] External Provider LAB BLO OD ORDERABLES Final Result Performing Organization Address [facility] de Phone Number [facility] [address] [place] [address] [phone] documented in this encounter Visit Diagnoses Not on filedocumented in this encounter Care Teams Job Specification Writer Relationship Specialty Start Date End Date Ventura Tavares MD [address] [place] [phone] PCP - General Internal Medicine 03/11/14 Garrison Silverio MD [address] [place] [address] [address] [place] [phone] Nephrology 11/29/24 documented as of this encounter
--- OUTSIDE RECORDS SUMMARY | 2025-06-28 18:41 | XMS_ITS | Encounter Summary ---
Author Organization [employer] Address [address] [facility] [address] [place] [address] Care Team Providers Care Estimator Name Role Phone Ventura Tavares MD Primary Care Provide r Garrison Silverio MD Unavailable Encounter Details Date Type Department Care Team ([facility] Contact Info) Description 09/20/2022 Orders Only [facility] [address] [place] [address] Terra Hannon LPN Social History Tobacco Use [...] Upcoming Encounters Date Type Department Care Team ([facility] Contact Info) Description 07/02/2025 1:00 PM EST Medication Management [facility] [address] [place], [place] [phone] Segundo Cruz, PharmD [address] [place], [place] [phone] 09/19/2025 11:30 AM EST Office Visit [facility] [address] [place] [address] Ventura Tavares MD [address] [place] [address] documented as of this encounter Visit Diagnoses Not on filedocumented in this encounter Care Teams Estimator Relationship Specialty Start Date End Date Ventura Tavares MD [address] [place] [phone] PCP - General Internal Medicine 03/11/14 Garrison Silverio MD [address] [place] [address] [address] [place] [phone] Nephrology 11/29/24 documented as of this encounter
== END 2025-06-28 15:00 | disposition home or self-care (01) ==
LOC: HO.HKA 14:36
PROVIDERS: PCP Internal Medicine; Visit Provider Internal Medicine Nephrology
DX: I10 Essential (primary) hypertension (principal); E11.21 Type 2 diabetes mellitus with diabetic nephropathy; E11.22 Type 2 diabetes mellitus with diabetic chronic kidney disease; N18.30 Chronic kidney disease, stage 3 unspecified
CPT/HCPCS: 99214

== ENCOUNTER → 2025-06-28 14:35 | Outpatient (BNVA) | payer OTHER, SELFPAY | PROVIDERS: PCP Internal Medicine; Visit Provider Internal Medicine Nephrology | DX: I12.9 Hypertensive chronic kidney disease with stage 1 through stage 4 chronic kidney disease, or unspecified chronic kidney disease (principal); E11.22 Type 2 diabetes mellitus with diabetic chronic kidney disease; N18.30 Chronic kidney disease, stage 3 unspecified; Z79.84 Long term (current) use of oral hypoglycemic drugs; Z79.899 Other long term (current) drug therapy | CPT/HCPCS: 99212 ==